=== PATIENT | female | born 1950 | race Caucasian/White ===

== ENCOUNTER 2018-02-27 17:14 | Emergency (ER) | payer OTHER ==
--- OUTSIDE RECORDS SUMMARY | 2018-02-27 17:17 | XMS REPORT | Clinical Summary ---
:1950 Author Organization [facility] Address [address] [place] [address] Care Team Providers Name Role Phone Jarad Ruano MD Primary Care Provider Allergies Active Allergy Reactions Severity Noted Date Comments Iodine And Iodide Containing Products 01/12/2016 Other 01/12/2016 "Seafood" "Cats" Current Medications Prescription Sig. Disp. Refills Start End Status Date Date fenofibrate (TRICOR) Take 145 mg by 0 01/25/20 Active 145 MG tablet mouth once 16 daily. levothyroxine Take 25 mcg by 3 01/21/20 Active (SYNTHROID, mouth once 16 LEVOTHROID) 25 MCG daily. tablet aspirin (ECOTRIN) 81 Take 81 mg by Active MG enteric coated mouth daily. tablet lisinopril-hydrochloro Take 1 tablet by Active thiazide mouth daily. (PRINZIDE,ZESTORETIC) 20-12.5 mg per tablet simvastatin (ZOCOR) 40 Take 40 mg by Active MG tablet mouth daily. lisinopril-hydrochloro Take 1 tablet by 0 01/25/20 Discontinued thiazide mouth once 16 018 (PRINZIDE,ZESTORETIC) daily. 10-12.5 mg per tablet simvastatin (ZOCOR) 20 Take 20 mg by 0 01/25/20 Discontinued MG tablet mouth once 16 018 daily. traMADol (ULTRAM) 50 TAKE 1 TABLET BY 0 12/02/19 Discontinued mg tablet MOUTH EVERY 6-8 16 018 HOURS NEEDED FOR PAIN. HYDROcodone-acetaminop Take 1 tablet by 80 tablet 0 04/09/20 hen (NORCO) 5-325 mg mouth every 4 17 017 per tabletIndications: (four) hours as Degenerative needed for scoliosis, Radicular moderate pain pain for up to 20 days. Max Daily Amount: 6 tablets metaxalone (SKELAXIN) Take 1 tablet 30 tablet 1 04/09/20 Discontinued 800 MG (800 mg total) 17 017 tabletIndications: by mouth nightly Degenerative as needed for scoliosis, Radicular muscle spasms pain for up to 30 days. cyclobenzaprine Take 1 tablet 30 tablet 1 04/09/20 Discontinued (FLEXERIL) 10 mg (10 mg total) by 17 017 tabletIndications: mouth nightly as Degenerative needed for scoliosis, Radicular muscle spasms pain for up to 30 days. cyclobenzaprine TAKE 1 TABLET BY 30 tablet 1 07/13/19 Discontinued (FLEXERIL) 10 mg MOUTH AT NIGHT 18 018 tabletIndications: NEEDED FOR Degenerative MUSCLE SPASMS scoliosis, Radicular pain HYDROcodone-acetaminop Take 1 tablet by 60 tablet 07/16/19 Discontinued hen (NORCO) 10-325 mg mouth every 4 18 018 per tabletIndications: (four) hours as Spondylolisthesis, needed for lumbar region moderate pain for up to 20 days. Max Daily Amount: 6 tablets docusate sodium Take 1 capsule 30 capsule 0 08/04/19 (COLACE) 100 MG (100 mg total) 18 018 capsule by mouth 2 (two) times a day as needed for constipation (for stool softener) for up to 30 days. HYDROcodone-acetaminop Take 1 tablet by 08/04/19 hen (NORCO) 10-325 mg mouth every 4 18 018 per tablet (four) hours as needed for mild pain for up to 30 days. Max Daily Amount: 6 tablets methylPREDNISolone follow package 21 tablet 0 08/13/19 (MEDROL, WES,) 4 mg directions 18 018 tabletIndications: S/P lumbar fusion HYDROcodone-acetaminop Take 1 tablet by 120 tablet 08/27/19 hen (NORCO) 10-325 mg mouth every 4 18 018 per tablet (four) hours as needed for moderate pain for up to 30 days. Max Daily Amount: 6 tablets HYDROcodone-acetaminop Earliest Fill Date: 10/02/17. 1 tablet by mouth every 6 hours, prn pain 90 tablet 0 10/03/19 04/08/ hen (NORCO) 10-325 mg Max daily dose 4 tablets 18 018 per tablet HYDROcodone-acetaminop Take 1 tablet by 90 tablet 0 10/03/19 04/16/2 hen (NORCO) 10-325 mg mouth every 4 18 018 per tabletIndications: (four) hours as S/P lumbar fusion needed for moderate pain for up to 20 days. Max Daily Amount: 6 tablets Active Problems Problem Noted Date Spondylolisthesis, lumbar region 08/01/2017 Lumbar stenosis 08/01/2017 Left knee pain 12/01/2015 Overview: Lateral, medial, and anterior and posterior; S/P Meniscal repair 03/2015 Plan: Proceed with surgery. Discussed the risks, benefits, and possible complications. Encounters Date Type Specialty Care Team Description 01/01/2018 Office Visit Orthopedic Surgery Alejandro Correa S/P lumbar fusion Teto Donovan (Primary Dx) 10/02/2017 Office Visit Orthopedic Surgery Alejandro Correa S/P lumbar fusion Teto Donovan (Primary Dx) 08/28/2017 Telephone Orthopedic Surgery Susana Brown 08/27/2017 Hospital Encounter Radiology Alejandro Correa S/P lumbar fusion Teto Donovan MD 08/27/2017 Office Visit Orthopedic Surgery Alejandro Correa S/P lumbar fusion Teto Donovan, (Primary Dx) 08/14/2017 Telephone Orthopedic Surgery Susana Brown 08/13/2017 Office Visit Orthopedic Surgery Alejandro Correa S/P lumbar fusion Teto Donovan (Primary Dx) 08/03/2017 Procedure Pass General Surgery 08/01/2017 - Hospital Encounter General Internal Alejandro Correa Spondylolisthesis, lumbar region; 08/04/2017 Medicine Teto Donovan, Degenerative scoliosis; Osteopenia determined by x-ray 08/01/2017 Procedure Pass General Surgery 08/01/2017 Surgery General Surgery Alejandro Correa, LUMBAR ANTERIOR Teto Donovan, DECOMPRESSION L3-4, L4-5, LUMBAR ANTERIOR FUSION WITH INSTRUMENTATION L3-4, L4-5,LUMBAR POSTERIOR L3-4,L4-5 DECOMPRESSION AND FUSION WITH INSTRUMENTATION AND RIGHT SIDED L3-4 LAMINOTOMY FORAMINOTOMY, LEFT SIDED L4-5 LAMINOTOMY FORAMINOTOMY , WITH NEURO MONITORING, ALLOGRAFT, BILATERAL ILIAC CREST BONE GRAFT, 07/26/2017 Anesthesia Event General Surgery David WalliselisseALTAGRACIA 07/16/2017 Hospital Encounter Radiology Alejandro Correa, Preop testing Teto Donovan MD 07/16/2017 Pre-Admit Testing Pre-Admission Alejandro Correa Preop testing ( Primary Appointment Testing Courtney Lugo) 07/16/2017 Office Visit Orthopedic Surgery Alejandro Correa, Spondylolisthesis, lumbar region (Primary Dx); Teto Donovan, Degenerative scoliosis in adult patient; Chronic midline low back pain without sciatica 06/19/2017 Refill Orthopedic Surgery Alejandro Correa, Degenerative scoliosis; Teto Donovan, Radicular pain 06/08/2017 Telephone Orthopedic Surgery Susana Brown 04/23/2017 Office Visit Orthopedic Surgery Alejandro Correa, Spondylolisthesis, lumbar region (Primary Dx); Teto Donovan Degenerative scoliosis; Osteopenia determined by x-ray 04/17/2017 Hospital Encounter Radiology Alejandro Correa, Degenerative scoliosis ; Teto Donovan Radicular pain 04/12/2017 Hospital Encounter Radiology Alejandro Correa, Degenerative scoliosis ; Teto Donovan Radicular pain 04/11/2017 Procedure Pass Radiology 04/11/2017 Telephone Orthopedic Surgery Susana Brown 04/11/2017 Telephone Orthopedic Surgery Kevin Susana 04/11/2017 Orders Only Orthopedic Surgery Alejandro Correa Degenerative scoliosis (Primary Dx); Teto Donovan Radicular pain 04/09/2017 Office Visit Orthopedic Surgery Alejandro Correa, Degenerative scoliosis (Primary Dx); Teto Donovan Radicular pain 04/02/2017 Office Visit Orthopedic Surgery Camilo Montoya right side MD Zulema (Primary Dx) after 02/26/2017 Family History Medical History Relation Name Comments Cancer Father prostate Heart disease Mother Hypertension Mother Relation Name Status Comments Father Mother Social History Tobacco Use Types Packs/Day Years Used Date Current Every Day Smoker Cigarettes 0.5 30 Smokeless Tobacco: Never Used Alcohol Use Drinks/Week oz/Week Comments No Sex Assigned at Date Recorded Not on file Last Filed Vital Signs Vital Sign Reading Time Taken Blood Pressure 127/58 08/04/2017 7:50 AM [employer] Pulse 86 08/04/2017 7:50 AM [employer] Temperature 36.8 C (98.2 F) 08/04/2017 7:50 AM [employer] Respiratory Rate 18 08/04/2017 7:50 AM [employer] Oxygen Saturation 95% 08/04/2017 7:50 AM [employer] Inhaled Oxygen Concentration - - Weight 93 kg (205 lb) 01/01/2018 1:02 PM CDT Height 167.6 cm (5' 6") 01/01/2018 1:02 PM CDT Body Mass Index 33.09 01/01/2018 1:02 PM CDT Plan of Treatment Date Type Specialty Care Team Description 07/04/2018 Office Visit [place] [address] [place] [address] Health Maintenance Due Date Last Done Comments BREAST CANCER SCREENING 1999 COLON CANCER SCREENING 1999 SHINGRIX VACCINE (#1) 1999 ZOSTER VACCINE 2009 PNEUMOCOCCAL POLYSACCHARIDE VACCINE AGE 65 AND OVER 2014 PNEUMOCOCCAL-13 2014 INFLUENZA VACCINE 02/06/2018 Implants Implanted Type Area Accounting File Clerk Device Expiration Model / Identifier Date Serial / Lot Hemostat Absrbl Biosurgery 4x4in Ltxf Surgicel - [id number] Cardiovasc Anterior: ETHICON US-EH 01/06/2020 1963 / Implanted: Qty: 1 on 08/01/2017 by Teto Salas MD ular Spine / Implants Lumbar [id number] [facility] Allograft Leader [facility] 15cc 0.1-4mm - [id number] Human Anterior: MUSCULOSKELETAL 10/26/2019 [id number] / Implanted: Qty: 1 on 08/01/2017 by Teto Salas MD Tissue Spine TRANSPLANT / Implants Lumbar [facility] [id number] Concelltrate 100 10.0cc - [id number] Human N/A: N/A 12/29/2021 [id number] / Implanted: Qty: 1 on 08/01/2017 by Teto Salas MD Tissue / Implants Concelltrate 100 10.0cc - [id number] Human N/A: N/A 12/29/2021 [id number] / Implanted: Qty: 1 on 08/01/2017 by Teto Salas MD Tissue / Implants Chip Canc Allograft Leader [facility] 15cc 0.1-4mm - [id number] Human Posterior: MUSCULOSKELETAL 12/30/2019 [id number] / Implanted: Qty: 1 on 08/01/2017 by Teto Salas MD Tissue Spine TRANSPLANT / Implants Lumbar [employer] [id number] Chip Canc Allograft Leader [facility] 30cc 0.1-4mm - [id number] Human Posterior: MUSCULOSKELETAL 05/04/2020 [id number] / Implanted: Qty: 1 on 08/01/2017 by Teto Salas MD Tissue Spine TRANSPLANT / Implants Lumbar [facility] [id number] Concelltrate 100 10.0cc - [id number] Human N/A: N/A 12/29/2021 [id number] / Implanted: Qty: 1 on 08/01/2017 by Teto Salas MD Tissue / Implants Concelltrate 100 10.0cc - [id number] Human N/A: N/A 12/29/2021 [id number] / Implanted: Qty: 1 on 08/01/2017 by Teto Salas MD Tissue / Implants Concelltrate 100 10.0cc - [id number] Human N/A: N/A 12/29/2021 [id number] / Implanted: Qty: 1 on 08/01/2017 by Teto Salas MD Tissue / Implants Melecio-A Median Alif Cage 10, 30x39 H 12mm - [id number] Anterior: LDR SPINE 07/09/2020 [id number] / Implanted: Qty: 1 on 08/01/2017 by Teto Salas MD IMPLANT Spine / DEVICES Lumbar [id number] Melecio-A Median Alif Cage 10, 30x39 H 12mm - [id number] Anterior: LDR SPINE 09/06/2018 [id number] / Implanted: Qty: 1 on 08/01/2017 by AllenTeto Parsons MD IMPLANT Spine / DEVICES Lumbar [id number] Melecio-A Plate +0.5mm Thick Medium - [id number] Anterior: LDR SPINE 04/08 [id number] / Implanted: Qty: 1 on 08/01/2017 by Teto Salas MD IMPLANT Spine / DEVICES Lumbar [id number] Melecio-A Plate +0.5mm Thick Medium - [id number] Anterior: LDR SPINE 08/09 [id number] / Implanted: Qty: 1 on 08/01/2017 by Teto Salas MD IMPLANT Spine / DEVICES Lumbar [id number] Arrow Two-Lumen Central Venous Catheterization Kit With Blue Flextip, Arrowgard Blue Plus Catheter, Sharps Safety Features, And Maximal Barrier Precautions Kit, Right: ARROW 10/06/2018 [id number] / Implanted: Qty: 1 on 08/01/2017 by Nathan Vee MD Venous [employer] A DIV OF [id number] TELEFLEX Henri Lmbr Thorc Nicole 3 - [id number] Spinal Posterior: JOANN SPINE [id number] / Implanted: Qty: 6 on 08/01/2017 by Teto Salas MD Implants Spine / Lumbar VENDOR LOT NA Screw Spinal Plyaxl 6.5x40mm Nicole Iii - [id number] Spinal Posterior: JOANN SPINE [id number] / Implanted: Qty: 2 on 08/01/2017 by Teto Salas MD Implants Spine / Lumbar VENDOR LOT NA Screw Plyaxl Lmbr Thor 5.5x40mm Ns Nicole 3 - [id number] Spinal Posterior: JOANN SPINE [id number] / Implanted: Qty: 3 on 08/01/2017 by Teto Salas MD Implants Spine / Lumbar VENDOR LOT NA Screw Spinal Plyaxl 5.5x35mm Nicole Iii - [id number] Spinal Posterior: JOANN SPINE [id number] / Implanted: Qty: 1 on 08/01/2017 by Teto Salas MD Implants Spine / Lumbar VENDOR LOT NA Kong Spinal Rads 6x70mm Nicole Iii - [id number] Spinal Posterior: JOANN SPINE [id number] / Implanted: Qty: 2 on 08/01/2017 by Teto Salas MD Implants Spine / Lumbar VENDOR LOT NA Procedures Procedure Name Priority Date/Time Associated Comments Diagnosis XR LUMBAR SPINE 2 OR Routine 01/01/2018 1:12 S/P lumbar fusion Results for this 3 VW PM CDT procedure are in the results section. XR LUMBAR SPINE 2 OR Routine 10/02/2017 1:30 S/P lumbar fusion Results for this 3 VW PM CDT procedure are in the results section. CT LUMBAR SPINE WO STAT 08/27/2017 1:58 S/P lumbar fusion Results for this CONTRAST PM [employer] procedure are in the results section. XR LUMBAR SPINE 2 OR Routine 08/27/2017 11:26 S/P lumbar fusion Results for this 3 VW AM [employer] procedure are in the results section. XR LUMBAR SPINE 2 OR Routine 08/13/2017 11:55 S/P lumbar fusion Results for this 3 VW AM [employer] procedure are in the results section. ESTIMATED GFR Routine 08/03/2017 5:07 Results for this AM [employer] procedure are in the results section. HC COMPLETE BLD COUNT Routine 08/03/2017 5:07 Results for this W/AUTO DIFF AM [employer] procedure are in the results section. MAGNESIUM LEVEL Routine 08/03/2017 5:07 Results for this AM [employer] procedure are in the results section. BASIC METABOLIC PANEL Routine 08/03/2017 5:07 Results for this AM [employer] procedure are in the results section. ESTIMATED GFR Routine 08/02/2017 5:57 Results for this AM [employer] procedure are in the results section. BASIC METABOLIC PANEL Routine 08/02/2017 5:57 Results for this AM [employer] procedure are in the results section. XR CHEST 1 VW STAT 08/01/2017 3:40 Results for this PORTABLE PM [employer] procedure are in the results section. OR FL > 1 HOUR Routine 08/01/2017 2:00 Results for this PM [employer] procedure are in the results section. MI AN ELECTIVE Routine 08/01/2017 8:05 ENDOTRACHEAL AIRWAY AM [employer] Procedure Note - Enma Byrd CRNA - 08/01/2017 8:04 AM [employer] Airway Date/Time: 08/01/2017 8:04 AM Performed by: ENMA BYRD Authorized by: LISBETH RUCKER Location: OR Urgency: Elective Difficult Airway: No Anesthesiologist: LISBETH RUCKER Resident/CHEMIST STEROIDS/AA: ENMA BYRD Preoxygenated with 100% O2: Yes C-spine Precautions Maintained Throughout: Yes Mask Ventilation: Easy mask Final Airway Type: Endotracheal airway Final Endotracheal Airway: ETT Cuffed: Yes Technique Used: Direct laryngoscopy Devices/Methods Used in Placement: Intubating stylet Insertion Site: Oral Blade Type: Lee Laryngoscope Blade/Videolaryngoscope Blade Size: 2 ETT Size (mm): 7.0 Cuff at minimum occlusion pressure: Yes Measured from: Lips ETT to Lips (cm): 22 Placement Verified by: CO2 detection, direct visualization and equal breath sounds Laryngoscopic view: Grade I - full view of glottis Rapid Sequence Induction (RSI): No Modified RSI: No Number of Attempts at Approach: 1 URINALYSIS SCREEN Timed 08/01/2017 7:50 Spondylolisthesis, lumbar Results for AND MICROSCOPY, WITH AM [employer] region this procedure REFLEX TO CULTURE Degenerative scoliosis are in the Osteopenia determined by results x-ray section. URINE CULTURE Timed 08/01/2017 7:50 Results for AM [employer] this procedure are in the results section. POC GLUCOSE Routine 08/01/2017 6:50 Results for AM [employer] this procedure are in the results section. XR CHEST 2 VW Routine 07/16/2017 3:03 Preop testing Results for PM [employer] this procedure are in the results section. ECG 12-LEAD Routine 07/16/2017 2:21 Preop testing Results for PM [employer] this procedure are in the results section. ESTIMATED GFR Routine 07/16/2017 2:19 Results for PM [employer] this procedure are in the results section. TYPE AND SCREEN Routine 07/16/2017 2:19 Preop testing Results for PM [employer] this procedure are in the results section. PROTHROMBIN TIME Routine 07/16/2017 2:19 Preop testing Results for WITH INR PM [employer] this procedure are in the results section. PARTIAL Routine 07/16/2017 2:19 Preop testing Results for THROMBOPLASTIN TIME PM [employer] this procedure (PTT) are in the results section. COMPREHENSIVE Routine 07/16/2017 2:19 Preop testing Results for METABOLIC PANEL PM [employer] this procedure are in the results section. HC COMPLETE BLD Routine 07/16/2017 2:19 Preop testing Results for COUNT W/AUTO DIFF PM [employer] this procedure are in the results section. MRI LUMBAR SPINE WO Routine 04/17/2017 1:44 Degenerative scoliosis Results for CONTRAST PM CDT Radicular pain this procedure are in the results section. BONE DENSITY Routine 04/12/2017 1:09 Degenerative scoliosis Results for PM CDT Radicular pain this procedure are in the results section. XR LUMBAR SPINE Routine 04/09/2017 1:36 Chronic right-sided low Results for COMPLETE 4+ VW PM CDT back pain without sciatica this procedure are in the results section. XR PELVIS 1 OR 2 VW Routine 04/02/2017 4:41 Pain of right hip joint Results for PM CDT this procedure are in the results section. after 02/26/2017 Results XR Lumbar Spine 2 Or 3 Vw (01/01/2018 1:12 PM)Only the most recent of4 resultswithin the time period is included. Narrative Performed At X-ray lumbar spine AP lateral view shows L3-4, L4-5 anterior interbody [facility] fusion posterior sure mentation spondylolisthesis lateral type reduced. Hardware in place. No loosening or cage subsidence. Performing Organization Address City/State/[facility] Phone Number [facility] [address] [place] [address] CT Lumbar Spine Wo Contrast (08/27/2017 1:58 PM) Narrative Performed At EXAMINATION:CT LUMBAR SPINE WO CONTRAST [facility] CLINICAL HISTORY:Z98.1 Arthrodesis status, LEFT SI JOINT PAIN COMPARISON:None. TECHNIQUE: Axial helical CT images throughout theLUMBAR spine were performedwithout contrast. Sagittal and coronal reformatted images were generated. CT scans are performed using radiation dose reduction techniques. Technical factors are evaluated and adjusted to ensure appropriate moderation of exposure. Automated dose management technology is applied to adjust radiation exposure while achieving a highly diagnostic quality image. FINDINGS: Sagittal and coronal image reconstructions demonstrate postoperative changes at L3-4 and L4-5 related to acute and posterior instrumentation and fusion. Posterior bone graft material overlies the posterior elements from L3 to L5. Axial images demonstrate following: Sacroiliac joint: There are bilateral sacroiliac joint degenerative changes with intra-articular vacuum cleft and minimal sclerosis on the iliac aspect of the articulation. L5-S1: There are facet joint degenerative changes on the left. L4-5: There are postoperative changes related to anterior and posterior instrumentation and fusion. The hardware positioning is good. L3-4: There are postoperative changes related to anterior and posterior instrumentation and fusion and small laminotomies. There is no significant spinal canal or foraminal stenosis. L2-3: There is minimal annular bulging. L1-2: There is no significant disc bulge or stenosis. T12-L1: There is no significant disc bulge or stenosis. T11-12: There is no significant disc bulge or stenosis. IMPRESSION: Postoperative changes at L3-4 and L4-5 related to anterior and posterior instrumentation and fusion without spinal canal or foraminal stenosis. Posterior bone graft overlies the posterior elements from L3 to L5 bilaterally. Bilateral sacroiliac joint degenerative changes and intra-articular vacuum cleft. Sacroiliac joint dysfunction or laxity is suspected and clinical correlation is recommended. No significant spinal canal stenosis or compression fracture. [facility]-[id number] Procedure Note Interface, Radiology Results - 08/27/2017 2:09 PM [employer] EXAMINATION: CT LUMBAR SPINE WO CONTRAST CLINICAL HISTORY: Z98.1 Arthrodesis status, LEFT SI JOINT PAIN COMPARISON: None. TECHNIQUE: Axial helical CT images throughout the LUMBAR spine were performed without contrast. Sagittal and coronal reformatted images were generated. CT scans are performed using radiation dose reduction techniques. Technical factors are evaluated and adjusted to ensure appropriate moderation of exposure. Automated dose management technology is applied to adjust radiation exposure while achieving a highly diagnostic quality image. FINDINGS: Sagittal and coronal image reconstructions demonstrate postoperative changes at L3-4 and L4-5 related to acute and posterior instrumentation and fusion. Posterior bone graft material overlies the posterior elements from L3 to L5. Axial images demonstrate following: Sacroiliac joint: There are bilateral sacroiliac joint degenerative changes with intra-articular vacuum cleft and minimal sclerosis on the iliac aspect of the articulation. L5-S1: There are facet joint degenerative changes on the left. L4-5: There are postoperative changes related to anterior and posterior instrumentation and fusion. The hardware positioning is good. L3-4: There are postoperative changes related to anterior and posterior instrumentation and fusion and small laminotomies. There is no significant spinal canal or foraminal stenosis. L2-3: There is minimal annular bulging. L1-2: There is no significant disc bulge or stenosis. T12-L1: There is no significant disc bulge or stenosis. T11-12: There is no significant disc bulge or stenosis. IMPRESSION: Postoperative changes at L3-4 and L4-5 related to anterior and posterior instrumentation and fusion without spinal canal or foraminal stenosis. Posterior bone graft overlies the posterior elements from L3 to L5 bilaterally. Bilateral sacroiliac joint degenerative changes and intra-articular vacuum cleft. Sacroiliac joint dysfunction or laxity is suspected and clinical correlation is recommended. No significant spinal canal stenosis or compression fracture. [facility]-[id number] Performing Organization Address City/[facility]/Zipcode Phone Number [facility] [address] [place] [address] Estimated GFR (08/03/2017 5:07 AM)Only the most recent of3 resultswithin the time period is included. GFR Non Af Amer 83 mL/min/1.73 m2 [facility] DEPARTMENT OF PATHOLOGY AND GENOMIC MEDICINE GFR Af Amer >90 mL/min/1.73 m2 [facility] DEPARTMENT OF Comment: PATHOLOGY AND GENOMIC Chronic kidney disease: <60 mL/min/1.73m2 MEDICINE Kidney failure: <15 mL/min/1.73m2 The estimated GFR is calculated from the IDMS-traceable Modification of Diet in Renal Disease Equation. The accuracy of the calculation is poor when the creatinine is normal. Calculated values >90 mL/min/1.73m2 are not reported. This equation has not been validated in children (<18 years), women, the elderly (>70 years), or ethnic groups other than Caucasians and Americans. Specimen Plasma specimen Performing Organization Address City/State/Zipcode Phone Number [facility] DEPARTMENT OF PATHOLOGY [address] [place] [address] AND [employer] MEDICINE CBC with platelet and differential (08/03/2017 5:07 AM)Only the most recent of2 resultswithin the time period is included. WBC 12.2 (H) 4.5 - 11.0 k/uL [facility] DEPARTMENT OF PATHOLOGY AND GENOMIC MEDICINE RBC 2.86 (L) 4.20 - 5.50 m/uL [facility] DEPARTMENT OF PATHOLOGY AND GENOMIC MEDICINE HGB 9.3 (L) 12.0 - 16.0 g/dL [facility] DEPARTMENT OF PATHOLOGY AND GENOMIC MEDICINE HCT 28.0 (L) 37.0 - 47.0 % [facility] DEPARTMENT OF PATHOLOGY AND GENOMIC MEDICINE MCV 97.9 82.0 - 100.0 fL [facility] DEPARTMENT OF PATHOLOGY AND GENOMIC MEDICINE MCH 32.5 27.0 - 34.0 pg [facility] DEPARTMENT OF PATHOLOGY AND GENOMIC MEDICINE MCHC 33.2 31.0 - 37.0 g/dL [facility] DEPARTMENT OF PATHOLOGY AND GENOMIC MEDICINE RDW - SD 47.9 37.0 - 55.0 fL [facility] DEPARTMENT OF PATHOLOGY AND GENOMIC MEDICINE MPV 11.0 6.9 - 11.0 fL [facility] DEPARTMENT OF PATHOLOGY AND GENOMIC MEDICINE Platelet count 220 150 - 400 K/uL [facility] DEPARTMENT OF PATHOLOGY AND GENOMIC MEDICINE Nucleated RBC 0.00 /100 WBC [facility] DEPARTMENT OF PATHOLOGY AND GENOMIC MEDICINE Neutrophils 64.1 39.0 - 69.0 % [facility] DEPARTMENT OF PATHOLOGY AND GENOMIC MEDICINE Lymphocytes 28.3 25.0 - 45.0 % [facility] DEPARTMENT OF PATHOLOGY AND GENOMIC MEDICINE Monocytes 6.6 0.0 - 10.0 % [facility] DEPARTMENT OF PATHOLOGY AND GENOMIC MEDICINE Eosinophils 0.2 0.0 - 5.0 % [facility] DEPARTMENT OF PATHOLOGY AND GENOMIC MEDICINE Basophils 0.3 0.0 - 1.0 % [facility] DEPARTMENT OF PATHOLOGY AND GENOMIC MEDICINE Immature granulocytes 0.5 0.0 - 1.0 % [facility] DEPARTMENT OF PATHOLOGY AND GENOMIC MEDICINE Specimen Blood Performing Organization Address City/[facility]/Zipcode Phone Number [facility] [address] AND [facility] Magnesium level (08/03/2017 5:07 AM) Magnesium 1.8 1.6 - 2.4 mg/dL [facility] DEPARTMENT OF PATHOLOGY AND GENOMIC MEDICINE Specimen Plasma specimen Performing Organization Address [facility]/Zipcode Phone Number [facility] [place] [address] AND [facility] Basic metabolic panel (08/03/2017 5:07 AM)Only the most recent of2 resultswithin the time period is included. Sodium 143 135 - 148 mEq/L [facility] DEPARTMENT OF PATHOLOGY AND GENOMIC MEDICINE Potassium 4.0 3.5 - 5.0 mEq/L [facility] DEPARTMENT OF PATHOLOGY AND GENOMIC MEDICINE Chloride 105 98 - 112 mEq/L [facility] DEPARTMENT OF PATHOLOGY AND GENOMIC MEDICINE CO2 31 24 - 31 mEq/L [facility] DEPARTMENT OF PATHOLOGY AND GENOMIC MEDICINE Anion gap 7 7 - 15 mEq/L [facility] DEPARTMENT OF Comment: PATHOLOGY AND GENOMIC Starting from October , anion gap calculation MEDICINE no longer incorporates potassium. Please note the change. BUN 16 8 - 23 mg/dL [facility] DEPARTMENT OF PATHOLOGY AND GENOMIC MEDICINE Creatinine 0.7 0.5 - 0.9 mg/dL [facility] DEPARTMENT OF PATHOLOGY AND GENOMIC MEDICINE Glucose 92 65 - 99 mg/dL [facility] DEPARTMENT OF PATHOLOGY AND GENOMIC MEDICINE Calcium 8.9 8.8 - 10.2 mg/dL [facility] DEPARTMENT OF PATHOLOGY AND GENOMIC MEDICINE Specimen Plasma specimen Performing Organization Address City/[facility]/Zipcode Phone Number [facility] DEPARTMENT OF PATHOLOGY [address] [place] [address] AND GENOMIC MEDICINE XR Chest 1 Vw Portable (08/01/2017 3:40 PM) Narrative Performed At EXAMINATION:XR CHEST 1 VW PORTABLE [facility] CLINICAL HISTORY:UVC Line Placement COMPARISON:07/16/2017 IMPRESSION: Right-sided central line tip is at the SVC level. No pneumothorax. Interval development of perihilar soft tissue opacities and patchy infiltrates. Low lung volumes. [facility]-[id number] Procedure Note Interface, Radiology Results Incoming - 08/01/2017 3:46 PM [employer] EXAMINATION: XR CHEST 1 VW PORTABLE CLINICAL HISTORY: UVC Line Placement COMPARISON: 07/16/2017 IMPRESSION: Right-sided central line tip is at the SVC level. No pneumothorax. Interval development of perihilar soft tissue opacities and patchy infiltrates. Low lung volumes. [facility]-[id number] Performing Organization Address [facility] Phone Number [facility] [address] [place] [address] [place] > I Hour (08/01/2017 2:00 PM) Narrative Performed At EXAMINATION:OR [place] 1 HOUR [facility] CLINICAL HISTORY: IMPRESSION: Fluoroscopy was provided. No radiologist present.Please see procedure report for discussion of procedure, findings and fluoroscopic time. [facility]-[id number] Procedure Note Interface, Radiology Results Incoming - 08/01/2017 2:49 PM [employer] EXAMINATION: [place] 1 HOUR CLINICAL HISTORY: IMPRESSION: Fluoroscopy was provided. No radiologist present. Please see procedure report for discussion of procedure, findings and fluoroscopic time. [facility]-[id number] Performing Organization Address [facility]/Zipcode Phone Number [facility] [address] [place] [address] Urinalysis screen and microscopy, with reflex to culture (08/01/2017 7:50 AM) Specimen site Catheterized [facility] DEPARTMENT OF PATHOLOGY AND GENOMIC MEDICINE Color, UA Straw [facility] DEPARTMENT OF PATHOLOGY AND GENOMIC MEDICINE Appearance, UA Clear [facility] DEPARTMENT OF PATHOLOGY AND GENOMIC MEDICINE Specific gravity, UA 1.010 1.001 - 1.030 [facility] DEPARTMENT OF PATHOLOGY AND GENOMIC MEDICINE pH, UA 6.0 5.0 - 9.0 [facility] DEPARTMENT OF PATHOLOGY AND GENOMIC MEDICINE Protein, UA Negative Negative [facility] DEPARTMENT OF PATHOLOGY AND GENOMIC MEDICINE Glucose, UA Negative Negative [facility] DEPARTMENT OF PATHOLOGY AND GENOMIC MEDICINE Ketones, UA Negative Negative [facility] DEPARTMENT OF PATHOLOGY AND GENOMIC MEDICINE Bilirubin, UA Negative Negative [facility] DEPARTMENT OF PATHOLOGY AND GENOMIC MEDICINE Blood, UA Moderate (A) Negative [facility] DEPARTMENT OF PATHOLOGY AND GENOMIC MEDICINE Nitrite, UA Negative Negative [facility] DEPARTMENT OF PATHOLOGY AND GENOMIC MEDICINE Urobilinogen, UA <2.0 <2.0 E.U./dL [facility] DEPARTMENT OF PATHOLOGY AND GENOMIC MEDICINE Leukocyte esterase, UA Negative Negative [facility] DEPARTMENT OF PATHOLOGY AND GENOMIC MEDICINE Epithelial cells, UA 1 /HPF [facility] DEPARTMENT OF PATHOLOGY AND GENOMIC MEDICINE WBC, UA <1 0 - 4 /HPF [facility] DEPARTMENT OF PATHOLOGY AND GENOMIC MEDICINE RBC, UA 3 (H) 0 - 2 /HPF [facility] DEPARTMENT OF PATHOLOGY AND GENOMIC MEDICINE Bacteria, UA Few None seen [facility] DEPARTMENT OF PATHOLOGY AND GENOMIC MEDICINE Yeast, UA None seen [facility] DEPARTMENT OF PATHOLOGY AND GENOMIC MEDICINE Yeast with pseudohyphae, UA None seen [facility] DEPARTMENT OF PATHOLOGY AND GENOMIC MEDICINE Specimen Urine - Urine, catheter Performing Organization Address City/[facility]/Zipcode Phone Number [facility] DEPARTMENT OF PATHOLOGY [address] [place] [address] AND [employer] Urine culture (08/01/2017 7:50 AM) Urine culture SEE COMMENTComment: Bacteriuria [facility] DEPARTMENT OF PATHOLOGY screen negative. AND [employer] MEDICINE Performing Organization Address City/[facility]/Zipcode Phone Number [facility] DEPARTMENT OF PATHOLOGY [address] [place] [address] AND [employer] [facility] POC glucose (08/01/2017 6:50 AM) POC glucose 88 65 - 99 mg/dL [facility] DEPARTMENT OF PATHOLOGY AND Comment: [employer] Meter ID: [id number] Classroom Assistant: Jourdan Nixon Performing Organization Address City/[facility]/Zipcode Phone Number [facility] DEPARTMENT OF PATHOLOGY [address] [place] [address] AND GENOMIC MEDICINE XR Chest 2 Vw (07/16/2017 3:03 PM) Narrative Performed At EXAMINATION:XR CHEST 2 VW [facility] CLINICAL HISTORY:Z01.818 Encounter for other preprocedural examination, PREOP COMPARISON:None. IMPRESSION: 1.The heart size is normal. The aorta is atherosclerotic. 2.There is no evidence of pulmonary edema. There are no focal consolidations or effusions. 3.Regional skeletal structures are slightly osteopenic. Changes related rotator cuff repair are seen in the right shoulder. Procedure Note Interface, Radiology Results Incoming - 07/16/2017 3:07 PM [employer] EXAMINATION: XR CHEST 2 VW CLINICAL HISTORY: Z01.818 Encounter for other preprocedural examination, PREOP COMPARISON: None. IMPRESSION: 1. The heart size is normal. The aorta is atherosclerotic. 2. There is no evidence of pulmonary edema. There are no focal consolidations or effusions. 3. Regional skeletal structures are slightly osteopenic. Changes related rotator cuff repair are seen in the right shoulder. Performing Organization Address [facility] Phone Number [facility] [address] [place] [address] ECG 12 lead (07/16/2017 2:21 PM) Ventricular rate 83 [facility]USE Atrial rate 84 [facility] MI interval 158 [facility] QRSD interval 88 [facility] QT interval 372 [facility] QTC interval 437 [facility] P axis 1 63 [facility] QRS axis 1 46 [facility] T wave axis 69 [facility] EKG impression Normal sinus rhythm-Poor R wave progression [facility] MUSE -Normal ECG-No previous ECGs available- Performing Organization Address [facility] Centercode Phone Number [facility] BIOeCON [address] [place] [address] Partial thromboplastin time, activated (07/16/2017 2:19 PM) PTT 31.1 23.0 - 36.0 sec [facility] DEPARTMENT OF Comment: PATHOLOGY AND GENOMIC PTT therapeutic range for unfractionated heparin is MEDICINE 61.0-112.0 seconds which corresponds to Anti-Xa 0.3-0.7 U/ml. Specimen Blood Performing Organization Address [facility]/Zipcode Phone Number [facility] DEPARTMENT OF PATHOLOGY [address] [place] [address] AND [facility] Prothrombin time with INR (07/16/2017 2:19 PM) Prothrombin time 13.1 12.0 - 15.0 sec [facility] DEPARTMENT OF PATHOLOGY AND GENOMIC MEDICINE INR 1.0 [facility] DEPARTMENT OF Comment: PATHOLOGY AND GENOMIC The International Normalized Ratio (INR) is a therapeutic MEDICINE monitoring tool for patients who are stable on oral anticoagulant therapy. An INR of 2.0-3.0 is suggested for deep vein thrombosis/pulmonary embolism. Specimen Blood Performing Organization Address City/[facility]/Zipcode Phone Number [facility] DEPARTMENT OF PATHOLOGY [address] [place] [id number] AND [employer] MEDICINE Type and screen (07/16/2017 2:19 PM) ABO grouping O [facility] DEPARTMENT OF PATHOLOGY AND GENOMIC MEDICINE Rh type POS [facility] DEPARTMENT OF PATHOLOGY AND GENOMIC MEDICINE Antibody screen (gel) NEG [facility] DEPARTMENT OF PATHOLOGY AND GENOMIC MEDICINE Specimen Blood Performing Organization Address [facility] Centercode Phone Number [facility] DEPARTMENT OF PATHOLOGY [address] [place] [id number] AND [facility] Comprehensive metabolic panel (07/16/2017 2:19 PM) Sodium 143 135 - 148 mEq/L [facility] DEPARTMENT OF PATHOLOGY AND GENOMIC MEDICINE Potassium 4.6 3.5 - 5.0 mEq/L [facility] DEPARTMENT OF PATHOLOGY AND GENOMIC MEDICINE Chloride 101 98 - 112 mEq/L [facility] DEPARTMENT OF PATHOLOGY AND GENOMIC MEDICINE CO2 31 24 - 31 mEq/L [facility] DEPARTMENT OF PATHOLOGY AND GENOMIC MEDICINE Anion gap 11 7 - 15 mEq/L [facility] DEPARTMENT OF Comment: PATHOLOGY AND GENOMIC Starting from October , anion gap calculation MEDICINE no longer incorporates potassium. Please note the change. BUN 14 8 - 23 mg/dL [facility] DEPARTMENT OF PATHOLOGY AND GENOMIC MEDICINE Creatinine 0.8 0.5 - 0.9 mg/dL [facility] DEPARTMENT OF PATHOLOGY AND GENOMIC MEDICINE Glucose 94 65 - 99 mg/dL [facility] DEPARTMENT OF PATHOLOGY AND GENOMIC MEDICINE Calcium 10.4 (H) 8.8 - 10.2 mg/dL [facility] DEPARTMENT OF PATHOLOGY AND GENOMIC MEDICINE Protein 7.3 6.3 - 8.3 g/dL [facility] DEPARTMENT OF PATHOLOGY AND GENOMIC MEDICINE Albumin 4.5 3.5 - 5.0 g/dL [facility] DEPARTMENT OF PATHOLOGY AND GENOMIC MEDICINE A/G ratio 1.6 0.7 - 3.8 [facility] DEPARTMENT OF PATHOLOGY AND GENOMIC MEDICINE Alkaline phosphatase 41 35 - 104 U/L [facility] DEPARTMENT OF PATHOLOGY AND GENOMIC MEDICINE AST 29 10 - 35 U/L [facility] DEPARTMENT OF PATHOLOGY AND GENOMIC MEDICINE ALT 13 5 - 50 U/L [facility] DEPARTMENT OF PATHOLOGY AND GENOMIC MEDICINE Total bilirubin 0.3 0.2 - 1.2 mg/dL [facility] DEPARTMENT OF PATHOLOGY AND GENOMIC MEDICINE Specimen Plasma specimen Performing Organization Address City/State/Zipcode Phone Number [facility] DEPARTMENT OF PATHOLOGY [address] [facility] [place] [address] AND GENOMIC MEDICINE MRI Lumbar Spine Wo Contrast (04/17/2017 1:44 PM) Narrative Performed At EXAMINATION: MRI LUMBAR SPINE WO CONTRAST [facility] CLINICAL HISTORY: M41.9 Scoliosisunspecified, M54.10 Radiculopathysite unspecified, degenerative scoliosis and radicular pain COMPARISON:Lumbar spine x-rays from earlier today. TECHNIQUE: Multiplanar multisequence noncontrast enhanced examination was performed of the Lumbar spine. FINDINGS: The lumbar curvature is moderately convex towards the left. There are degenerative changes of the upper visualized sacroiliac joints. There is decreased T2 signal in the lumbar discs at L4-5, L3-4 and L2-3. L5-S1: There is mild posterior disc space narrowing. There is minimal bulge. There are facet hypertrophic changes more prominent on the left. There is no significant canal or foramen stenosis. L4-5: There is severe left disc space narrowing with surrounding endplate degenerative changes. There is minimal anterolisthesis with uncovering of the disc and bulge. There is left paracentral spondylo sis with protrusion indenting the subarachnoid space in the region of the L5 nerve roots. There are facet hypertrophic changes more prominent on the left indenting the posterolateral subarachnoid space greater in the region of the L5 nerve roots. There i s no significant central canal stenosis. There is moderate left and mild right foramen stenosis. There is left extraforaminal spondylosis with mass effect on the nerve. L3-4: There is severe right disc space narrowing with surrounding endplate degenerative change. There is moderate left lateral listhesis. There is dorsal spondylosis with bulge indenting the anterior subarachnoid space. There are posterior element hypertrophic changes indenting the posterior subarachnoid space, greater on the right. There is mild to moderate left and moderate to severe right foramen stenosis. There is outward displacement of the right nerve in the extraforaminal region. L2-3: There is greater right disc space narrowing and posterior disc space narrowing. There is mild bulge. There are facet hypertrophic changes.There is no significant canal or foramen stenosis. L1-2: There are mild degenerative changes. The distal cord ends at the T12-L1 level and is grossly unremarkable. There is mild nonspecific heterogeneous signal intensity throughout the marrow. The study was not performed for proper imaging of soft tissue structures in the abdomen and pelvis. IMPRESSION: Degenerative changes with mass effect on the left L5 nerve root in the ventrolateral subarachnoid space and possibly mass effect on the right L4 nerve root in the ventrolateral subarachnoid space. Foramen stenosis more prominent on the left at L4-5 and right at L3-4. Lumbar curvature moderately convex towards the left. Lateral listhesis most prominent at L3-4. [id number] Procedure Note Hm Interface, Radiology Results Incoming - 04/17/2017 3:40 PM CDT EXAMINATION: MRI LUMBAR SPINE WO CONTRAST CLINICAL HISTORY: M41.9 Scoliosis unspecified, M54.10 Radiculopathy site unspecified, degenerative scoliosis and radicular pain COMPARISON: Lumbar spine x-rays from earlier today. TECHNIQUE: Multiplanar multisequence noncontrast enhanced examination was performed of the Lumbar spine. FINDINGS: The lumbar curvature is moderately convex towards the left. There are degenerative changes of the upper visualized sacroiliac joints. There is decreased T2 signal in the lumbar discs at L4-5, L3-4 and L2-3. L5-S1: There is mild posterior disc space narrowing. There is minimal bulge. There are facet hypertrophic changes more prominent on the left. There is no significant canal or foramen stenosis. L4-5: There is severe left disc space narrowing with surrounding endplate degenerative changes. There is minimal anterolisthesis with uncovering of the disc and bulge. There is left paracentral spondylosis with protrusion indenting the subarachnoid space in the region of the L5 nerve roots. There are facet hypertrophic changes more prominent on the left indenting the posterolateral subarachnoid space greater in the region of the L5 nerve roots. There is no significant central canal stenosis. There is moderate left and mild right foramen stenosis. There is left extraforaminal spondylosis with mass effect on the nerve. L3-4: There is severe right disc space narrowing with surrounding endplate degenerative change. There is moderate left lateral listhesis. There is dorsal spondylosis with bulge indenting the anterior subarachnoid space. There are posterior element hypertrophic changes indenting the posterior subarachnoid space, greater on the right. There is mild to moderate left and moderate to severe right foramen stenosis. There is outward displacement of the right nerve in the extraforaminal region. L2-3: There is greater right disc space narrowing and posterior disc space narrowing. There is mild bulge. There are facet hypertrophic changes. There is no significant canal or foramen stenosis. L1-2: There are mild degenerative changes. The distal cord ends at the T12-L1 level and is grossly unremarkable. There is mild nonspecific heterogeneous signal intensity throughout the marrow. The study was not performed for proper imaging of soft tissue structures in the abdomen and pelvis. IMPRESSION: Degenerative changes with mass effect on the left L5 nerve root in the ventrolateral subarachnoid space and possibly mass effect on the right L4 nerve root in the ventrolateral subarachnoid space. Foramen stenosis more prominent on the left at L4-5 and right at L3-4. Lumbar curvature moderately convex towards the left. Lateral listhesis most prominent at L3-4. [facility]-[id number] Performing Organization Address City/State/Zipcode Phone Number [facility] [address] [place] [address] Bone Density (04/12/2017 1:09 PM) Narrative Performed At EXAMINATION:BONE DENSITY [facility] CLINICAL HISTORY:M41.9 Scoliosisunspecified, M54.10 Radiculopathysite unspecified, osteoporosis COMPARISON:None. The results of this study expressed as bone mineral density (BMD) were as follows: AP spine (L1-L4) BMD: 1.090 g/cm2 T-Score: -0.8 Z-Score: -0.1 Percent change: No prior exam. % Dual Femur (Total Mean): BMD: 0.855 g/cm2 T-Score: -1.2 Z-Score:-0.5 Percent change: No prior exam. % Left Forearm (Radius 33%): BMD: 0.682 g/cm2 T-Score: -2.2 Z-Score: -0.6 Percent change: No prior exam. % Femur FRAX: Risk factors: History of fracture (adult). Tobacco user (current smoker). 10 year probability of fracture: 1.Major osteoporotic: 15.1% 2.Hip: 3.1% 3.Based on femur right neck BMD Impression: 1.Osteopenia based on a T score value of -2.2 for the left forearm. Notes: *The world health organization (WHO) has classified the patient's T-score as follows: At or above (-1) as normal (-1) to (-2.5) as low (osteopenia) At or below (-2.5) as abnormally low (osteoporosis, increased fracture risk) For premenopausal women, men under the age 50 years, and children the WHO classification does not apply. In these individuals please assess bone mineral density with Z scores for each skeletal site examined. Z scores above -2.0: Within expected range for age. Z scores lower than -2.0:Low bone density for age. The TBS is derived from the texture of the DEXA image and has been shown to be related to bone microarchitecture and fracture risk. This data provides information independent of BMD value; is used as a complement to the data obtained from the DEXA analysis and the clinical examination. The TBS can assist the healthcare professional in assessment of fracture risk and in monitoring the effect of treatments on patient over time. [facility]-[id number] Procedure Note [facility], Radiology Results Incoming - 04/12/2017 2:17 PM CDT EXAMINATION: BONE DENSITY CLINICAL HISTORY: M41.9 Scoliosis unspecified, M54.10 Radiculopathy site unspecified, osteoporosis COMPARISON: None. The results of this study expressed as bone mineral density (BMD) were as follows: AP spine (L1-L4) BMD: 1.090 g/cm2 T-Score: -0.8 Z-Score: -0.1 Percent change: No prior exam. % Dual Femur (Total Mean): BMD: 0.855 g/cm2 T-Score: -1.2 Z-Score: -0.5 Percent change: No prior exam. % Left Forearm (Radius 33%): BMD: 0.682 g/cm2 T-Score: -2.2 Z-Score: -0.6 Percent change: No prior exam. % Femur FRAX: Risk factors: History of fracture (adult). Tobacco user (current smoker). 10 year probability of fracture: 1. Major osteoporotic: 15.1% 2. Hip: 3.1% 3. Based on femur right neck BMD Impression: 1. Osteopenia based on a T score value of -2.2 for the left forearm. Notes: *The world health organization (WHO) has classified the patient's T-score as follows: At or above (-1) as normal (-1) to (-2.5) as low (osteopenia) At or below (-2.5) as abnormally low (osteoporosis, increased fracture risk) For premenopausal women, men under the age 50 years, and children the WHO classification does not apply. In these individuals please assess bone mineral density with Z scores for each skeletal site examined. Z scores above -2.0: Within expected range for age. Z scores lower than -2.0: Low bone density for age. The TBS is derived from the texture of the DEXA image and has been shown to be related to bone microarchitecture and fracture risk. This data provides information independent of BMD value; is used as a complement to the data obtained from the DEXA analysis and the clinical examination. The TBS can assist the healthcare professional in assessment of fracture risk and in monitoring the effect of treatments on patient over time. [facility]-[id number] Performing Organization Address [facility] CenterDelenex Therapeutics Phone Number [employer] [address] [place] [address] XR Lumbar Spine Complete 4+ Vw (04/09/2017 1:36 PM) Narrative Performed At X-ray lumbar spine multiple views shows degenerative scoliosis with RADIANT lateral listhesis stemmed at the L3-4 with about 5 mm of listhesis and over 20 of curve. Under significant disc degeneration at the L2-3, L3-4, L4-5 and L5-S1. No fractures visualized. Lateral view flexion extension view shows no spondylolisthesis. Performing Organization Address [facility]/[employer] Phone Number [phone] [place] [address] XR Pelvis 1 Or 2 Vw (04/02/2017 4:41 PM) Narrative Performed At [facility] pelvis and lateral x-ray of the right hip is not of optimal quality but RADIANT does not show any obvious bony abnormalities. Performing Organization Address [facility]/[employer] Phone Number [address] [phone] [place] [address] after 02/26/2017 Insurance Payer Benefit Plan / Group Subscriber ID Type Phone Address MEDICARE MEDICARE PART A AND B xxxxxxxxxx Medicare [place], [place] SHANTAL MURGUIA PPO OPEN CHOICE xxxxxxxxx PPO Home: [address] [phone] [place], [place] [phone]
[2018-02-27] MEDS ORDERED: FENTANYL CITR 100 MCG/2 ML ONE (18:11)
[2018-02-27] MEDS ORDERED: NA CHLORIDE 0.9% 250 ML ONE (18:11)
[2018-02-27] MEDS ORDERED: NA CHLORIDE 0.9% 1,000 ML ONE (18:11)
--- NOTE | 2018-02-27 18:50 | RAD REPORT ---
EXAM DESCRIPTION: RAD - Shoulder Right 2 View - 02/27/2018 6:45 pm CLINICAL HISTORY: Right shoulder pain status post fall FINDINGS: Comminuted mildly to moderately displaced fracture involves the distal right clavicle with angulation present at the fracture site. Widening of the acromioclavicular joint likely indicates a tear of the ligament
[2018-02-27] MEDS ORDERED: HYDROMORPHONE HCL 0.5 MG/0.5 ML INJ ONE (19:26)
--- NOTE | 2018-02-27 19:56 | ER ---
Nurse's Notes [facility] Name: Susana Jaffe Age: 68 yrs Sex: Female : 1950 Arrival Date: 02/27/2018 Time: 17:15 Bed 2 Private MD: Jarad Ruano Diagnosis: Displaced fracture of lateral end of right clavicle Presentation: 02/27 17:32 Presenting complaint: Patient states: Tripped over furniture while vacuuming at 1600 aj today, reports right shoulder and arm pain. Deformity noted, reports tingling in arm. Care prior to arrival: None. Mechanism of Injury: Fall from standing position. Trauma event details: Injury occurred in the [facility], Injury occurred: at home. Injury occurred: February 27, 2018 Injury occurred at: 16:00. 17:32 Acuity: CINDY 3 aj 17:32 Method Of Arrival: Ambulatory aj 17:35 Transition of care: patient was not received from another setting of care. Onset of aj symptoms was February 27, 2018. Initial Sepsis Screen: Does the patient meet any 2 criteria? HR > 90 bpm. No. Patient's initial sepsis screen is negative. Does the patient have a suspected source of infection? No. Patient's initial sepsis screen is negative. 17:59 Risk Assessment: Do you want to hurt yourself or someone else? Patient reports no hj desire to harm self or others. Trauma Activation: Not Applicable Physician: ED Physician; Name: ; Notified At: ; Arrived At: Physician: General Surgeon; Name: ; Notified At: ; Arrived At: Physician: Radiology; Name: ; Notified At: ; Arrived At: Physician: Respiratory; Name: ; Notified At: ; Arrived At: Physician: Lab; Name: ; Notified At: ; Arrived At: Historical: - Allergies: 17:38 No Known Allergies; aj - Home Meds: 17:38 aspirin 81 mg Oral TbEC 1 tab once daily [Active]; levothyroxine 25 mcg tab 1 tab once aj daily [Active]; lisinopril-hydrochlorothiazide 20-12.5 mg oral tab 1 tab once daily [Active]; simvastatin 40 mg Oral tab 1 tab once daily [Active]; fenofibrate oral oral [Active]; - PMHx: 17:38 Hypertension; Hyperlipidemia; Hypothyroidism; Cancer, Breast; aj - PSHx: 17:38 Tonsillectomy; Hysterectomy; Thyroidectomy; Appendectomy; Cholecystectomy; colon aj resection; Right shoulder; Mastectomy Left; - Immunization history: Last tetanus immunization: - up to date. - Social history:: Smoking status: Patient uses tobacco products, smokes one-half pack cigarettes per day. - Ebola Screening: : Patient negative for fever greater than or equal to 101.5 degrees Fahrenheit, and additional compatible Ebola Virus Disease symptoms Patient denies exposure to infectious person Patient denies travel to an Ebola-affected area in the 21 days before illness onset No symptoms or risks identified at this time. Screenin:59 Abuse screen: Denies threats or abuse. Denies injuries from another. Nutritional hj screening: No deficits noted. Tuberculosis screening: No symptoms or risk factors identified. Fall Risk None identified. Primary Survey: 17:32 Breathing/Chest: Respiratory pattern: regular, Respiratory effort: spontaneous, aj unlabored, Breath sounds: clear, bilaterally. Chest inspection: symmetrical rise and fall of the chest. Circulation: Skin color: pink, Skin temperature: warm, dry. Disability Alert. 17:40 A: Airway: patent, No supplemental oxygen in use on arrival. Oral cavity: clear, gag hj reflex present, Trachea midline. Breathing/Chest: Respiratory pattern: regular, Respiratory effort: spontaneous, unlabored, Breath sounds: clear, Chest inspection: symmetrical rise and fall of the chest. Circulation: Cardiac rhythm: sinus rhythm Heart tones present. Pulses: palpable right radial artery and left radial artery. Skin color: pink, Skin temperature: warm, dry. Disability Alert. 17:45 Reassessment Airway Airway Patent Oxygen No O2 Oral cavity Clear +Gag reflex Trachea hj Midline Breathing/Chest Respiratory pattern Regular Respiratory effort Spontaneous Unlabored Breath sounds Clear Chest inspection Symmetrical Circulation Heart rhythm Sinus rhythm Heart tones Present Pulses Palpable Color Barnhart Temperature Warm Dry Disability Alert. 17:59 Reassessment Airway Airway Patent Oxygen No O2 Oral cavity Clear Trachea Midline hj Breathing/Chest Respiratory pattern Regular Respiratory effort Spontaneous Unlabored Breath sounds Clear Chest inspection Symmetrical Circulation Heart rhythm Sinus rhythm Heart tones Present Pulses Palpable Color Barnhart Temperature Warm Dry Disability Alert. 18:45 Reassessment Airway Airway Patent Oxygen No O2 Oral cavity Clear +Gag reflex Trachea hj Midline Breathing/Chest Respiratory pattern Regular Respiratory effort Spontaneous Unlabored Breath sounds Clear Chest inspection Symmetrical Circulation Heart rhythm Sinus rhythm Heart tones Present Pulses Palpable Color Barnhart Temperature Warm Dry Disability Alert. Assessment: 17:32 General: Appears in no apparent distress. uncomfortable, Behavior is cooperative, aj appropriate for age, crying. Pain: Complains of pain in anterior aspect of right shoulder, right bicep and posterior aspect of right shoulder. Neuro: Level of Consciousness is awake, alert, obeys commands, Oriented to person, place, time, situation, Appropriate for age. Respiratory: Airway is patent Respiratory effort is even, unlabored, Respiratory pattern is regular, symmetrical. Derm: Skin is intact, is healthy with good turgor, Skin is pink, warm \T\ dry. normal. Musculoskeletal: Bony deformity noted of anterior aspect of right shoulder Reports pain in anterior aspect of right shoulder, posterior aspect of right shoulder, right tricep and right upper arm. 18:40 Reassessment: Patient appears in no apparent distress at this time. Patient and/or cc3 family updated on plan of care and expected duration. Pain level reassessed. Patient is alert, oriented x 3, equal unlabored respirations, skin warm/dry/pink. patient stated that pain score decreased from initially more than 10 to 6/10 now. Patient states symptoms have improved. 19:40 General: Appears uncomfortable, Behavior is calm, cooperative, appropriate for age. ea Pain: Complains of pain in right upper arm and posterior aspect of right shoulder and anterior aspect of right shoulder Pain currently is 7 out of 10 on a pain scale. Quality of pain is described as aching, Is continuous. Neuro: Level of Consciousness is awake, alert, obeys commands, Oriented to person, place, time, situation. Respiratory: Airway is patent Respiratory effort is even, unlabored, Respiratory pattern is regular, symmetrical. Derm: Skin is pink, warm \T\ dry. Musculoskeletal: Bony deformity noted of posterior aspect of right shoulder and anterior aspect of right shoulder. 20:12 Reassessment: Patient and/or family updated on plan of care and expected duration. Pain ea level reassessed. Patient is alert, oriented x 3, equal unlabored respirations, skin warm/dry/pink. Discharge instructions given to patient and significant other, verbalized the understanding of instruction. Patient states symptoms have improved. Vital Signs: 17:32 BP 155 / 114; Pulse 143; Resp 21; Temp 97.8; Pulse Ox 93% on R/A; Weight 89.81 kg; aj Height 5 ft. 5 in. (165.10 cm); 18:30 Pulse 85; Resp 20; Pulse Ox 95% on R/A; cc3 19:09 BP 180 / 62; Pulse 84; Resp 16; Pulse Ox 95% on R/A; iw 20:15 BP 146 / 50; Pulse 80; Resp 18; Pulse Ox 99% on R/A; Pain 0/10; ea 17:32 Body Mass Index 32.95 (89.81 kg, 165.10 cm) aj Spalding Coma Score: 17:32 Eye Response: spontaneous(4). Verbal Response: oriented(5). Motor Response: obeys aj commands(6). Total: 15. Trauma Score (Adult): 17:32 Eye Response: spontaneous(1); Verbal Response: oriented(1); Motor Response: obeys aj commands(2); Systolic BP: > 89 mm Hg(4); Respiratory Rate: 10 to 29 per min(4); Spalding Score: 15; Trauma Score: 12 ED Course: 17:15 Patient arrived in ED. rg4 17:15 Jarad Ruano MD is Private Physician. rg4 17:31 Oren Sow PA is PHCP. cp 17:31 Osvaldo Hartley MD is Attending Physician. cp 17:32 Thermoregulation: warm blanket given to patient. hj 17:33 Triage completed. aj 17:35 yTler Nesbitt, LINCOLN is Primary Nurse. hj 17:38 Arm band placed on right wrist. Patient placed in an exam room, on a stretcher. aj 18:00 Patient has correct armband on for positive identification. Bed in low position. Call light in reach. Side rails up X 1. Adult w/ patient. 18:00 Patient maintains SpO2 saturation greater than 95% on room air. hj 18:06 EKG done, by ear mold laboratory technician. reviewed by Oren MASON. 3 18:07 Inserted saline lock: 24 gauge in left forearm, using aseptic technique. 3 18:38 X-ray completed. Portable x-ray completed in exam room. Patient tolerated procedure bb2 well. 18:39 XRAY Shoulder RIGHT 2 view In Process Unspecified. EDMS 18:45 X-ray completed. Portable x-ray completed in exam room. Patient tolerated procedure bb2 well. 19:00 Report given to LINCOLN Rojo. hj 19:50 Miller, Alia, RN is Primary Nurse. ea 19:55 Jeison Ernst MD is Referral Physician. cp 20:13 No provider procedures requiring assistance completed. IV discontinued, intact, ea bleeding controlled, No redness/swelling at site. Pressure dressing applied. Administered Medications: 18:00 Drug: NS 0.9% 250 ml Route: IV; Rate: bolus; Site: left antecubital; cc3 18:40 Follow up: IV Status: Completed infusion cc3 18:10 Drug: fentaNYL (PF) 50 mcg Route: IVP; Site: left antecubital; cc3 18:45 Follow up: Response: No adverse reaction; Pain is decreased cc3 18:41 Drug: NS 0.9% 1000 ml Route: IV; Rate: 100 ml/hr; Site: left forearm; hj 20:19 Follow up: Response: No adverse reaction; IV Status: Completed infusion ea 19:32 Drug: Dilaudid 0.5 mg Route: IVP; Site: left forearm; ea 20:12 Follow up: Response: No adverse reaction; Pain is decreased ea Intake: 20:14 IV: 250ml (IV Fluid); Total: 250ml. ea Outcome: 19:56 Discharge ordered by MD. cp 20:13 Discharged to home ambulatory, with significant other. ea 20:13 Condition: improved 20:13 Discharge instructions given to patient, significant other, Instructed on discharge instructions, follow up and referral plans. medication usage, Demonstrated understanding of instructions, follow-up care, medications, Prescriptions given X 1. 20:14 Patient's length of stay was not longer than 2 hours. ea 20:20 Patient left the ED. ea Signatures: Dispatcher [employer] EDAura Camacho RN RN aj Williams, Irene, RN RN iw Joaquin, Henry, RN RN hj Page, Corey, PA PA cp Garcia, Rubi rg4 Le Caruso 3 Alia Miller RN RN ea Bock, Brittany 2 Janay Hernández 3 Rachel Potter cc3
--- NOTE | 2018-02-27 19:56 | EDPHYS ---
Physician Documentation [facility] Name: Susana Jaffe Age: 68 yrs Sex: Female : 1950 Arrival Date: 02/27/2018 Time: 17:15 Bed 2 Private MD: Jarad Ruano ED Physician Osvaldo Hartley HPI: 02/27 17:58 This 68 yrs old Female presents to ER via Ambulatory with complaints of Fall cp Injury, Shoulder Injury. 18:00 The patient or guardian complains of decreased range of motion, an injury, pain, that cp is acute, swelling, tenderness. right shoulder. Context: The problem was sustained at home, resulted from a fall, from a standing position, The patient experiences decreased range of motion, when attempts to raise arm. Onset: The symptoms/episode began/occurred today. 18:00 Associated signs and symptoms: Pertinent positives: tingling, Pertinent negatives: cp chest pain, neck pain, shortness of breath, Weakness in right arm. Severity of symptoms: in the emergency department the symptoms are unchanged, despite home interventions. Historical: - Allergies: 17:38 No Known Allergies; aj - Home Meds: 17:38 aspirin 81 mg Oral TbEC 1 tab once daily [Active]; levothyroxine 25 mcg tab 1 tab once aj daily [Active]; lisinopril-hydrochlorothiazide 20-12.5 mg oral tab 1 tab once daily [Active]; simvastatin 40 mg Oral tab 1 tab once daily [Active]; fenofibrate oral oral [Active]; - PMHx: 17:38 Hypertension; Hyperlipidemia; Hypothyroidism; Cancer, Breast; aj - PSHx: 17:38 Tonsillectomy; Hysterectomy; Thyroidectomy; Appendectomy; Cholecystectomy; colon aj resection; Right shoulder; Mastectomy Left; - Immunization history: Last tetanus immunization: - up to date. - Social history:: Smoking status: Patient uses tobacco products, smokes one-half pack cigarettes per day. - Ebola Screening: : Patient negative for fever greater than or equal to 101.5 degrees Fahrenheit, and additional compatible Ebola Virus Disease symptoms Patient denies exposure to infectious person Patient denies travel to an Ebola-affected area in the 21 days before illness onset No symptoms or risks identified at this time. ROS: 18:05 Constitutional: Negative for body aches, chills, fever, poor PO intake. cp 18:05 Eyes: Negative for injury, pain, redness, and discharge. cp 18:05 ENT: Negative for drainage from ear(s), ear pain, sore throat, difficulty swallowing, difficulty handling secretions. 18:05 Neck: Negative for pain with movement, pain at rest, stiffness, bony tenderness. 18:05 Cardiovascular: Negative for chest pain, edema, palpitations. 18:05 Respiratory: Negative for cough, shortness of breath, wheezing. 18:05 Abdomen/GI: Negative for abdominal pain, nausea, vomiting, and diarrhea. 18:05 Back: Negative for pain at rest, pain with movement, radiated pain. 18:05 MS/extremity: Positive for decreased range of motion, pain, swelling, tenderness, of the anterior aspect of right shoulder. 18:05 Skin: Negative for cellulitis, rash. 18:05 Neuro: Positive for tingling, of the right hand, Negative for altered mental status, headache, loss of consciousness, weakness. 18:05 All other systems are negative. Exam: 18:10 ECG was reviewed by the Attending Physician. cp 18:12 Head/Face: Normocephalic, atraumatic. Eyes: Pupils equal round and reactive to light, cp extra-ocular motions intact. Lids and lashes normal. Conjunctiva and sclera are non-icteric and not injected. Cornea within normal limits. Periorbital areas with no swelling, redness, or edema. ENT: Nares patent. No nasal discharge, no septal abnormalities noted. Tympanic membranes are normal and external auditory canals are clear. Oropharynx with no redness, swelling, or masses, exudates, or evidence of obstruction, uvula midline. Mucous membranes moist. Neck: Trachea midline, no thyromegaly or masses palpated, and no cervical lymphadenopathy. Supple, full range of motion without nuchal rigidity, or vertebral point tenderness. No Meningismus. 18:12 Constitutional: The patient appears alert, awake, non-diaphoretic, non-toxic, well developed, well nourished, in obvious pain, uncomfortable. 18:12 Chest/axilla: Inspection: deformity, of the right clavicle Palpation: tenderness, that cp is severe, of the right clavicle. 18:12 Cardiovascular: Rate: tachycardic, Rhythm: regular, Pulses: Pulses are 2+ in right radial artery and left radial artery. Edema: is not appreciated, JVD: is not appreciated. 18:12 Respiratory: the patient does not display signs of respiratory distress, Respirations: normal, no use of accessory muscles, no retractions, no splinting, no tachypnea, labored breathing, is not present, Breath sounds: are clear throughout, no decreased breath sounds, no stridor, no wheezing. 18:12 Abdomen/GI: Exam negative for discomfort, distension, guarding, Inspection: abdomen appears normal. 18:12 Back: pain, is absent, ROM is normal, vertebral tenderness, is not appreciated. 18:12 Musculoskeletal/extremity: Extremities: grossly normal except: noted in the right shoulder: decreased ROM, pain, tenderness, ROM: limited passive range of motion due to pain, in the right shoulder, Perfusion: the extremity is normally perfused throughout, Sensation intact. 18:12 Skin: cellulitis, is not appreciated, no rash present. 18:12 Neuro: Orientation: to person, place \T\ time. Mentation: lucid, able to follow commands. Vital Signs: 17:32 BP 155 / 114; Pulse 143; Resp 21; Temp 97.8; Pulse Ox 93% on R/A; Weight 89.81 kg; aj Height 5 ft. 5 in. (165.10 cm); 18:30 Pulse 85; Resp 20; Pulse Ox 95% on R/A; cc3 19:09 BP 180 / 62; Pulse 84; Resp 16; Pulse Ox 95% on R/A; iw 20:15 BP 146 / 50; Pulse 80; Resp 18; Pulse Ox 99% on R/A; Pain 0/10; ea 17:32 Body Mass Index 32.95 (89.81 kg, 165.10 cm) aj Alix Coma Score: 17:32 Eye Response: spontaneous(4). Verbal Response: oriented(5). Motor Response: obeys aj commands(6). Total: 15. Trauma Score (Adult): 17:32 Eye Response: spontaneous(1); Verbal Response: oriented(1); Motor Response: obeys aj commands(2); Systolic BP: > 89 mm Hg(4); Respiratory Rate: 10 to 29 per min(4); Alix Score: 15; Trauma Score: 12 Procedures: 20:15 Splinting: Splint applied to right shoulder using sling, applied by nurse. Examined by cp me, post splint application: neurovascular intact, Patient tolerated well. MDM: 17:31 Patient medically screened. cp 18:00 Differential diagnosis: Anterior dislocation with fracture, Anterior dislocation cp without fracture, Posterior dislocation with fracture, Posterior dislocation without fracture, humeral head fracture, clavicle fracture. 19:55 Data reviewed: vital signs, nurses notes, EKG, radiologic studies, plain films. 19:55 Test interpretation: by ED physician or midlevel provider: plain radiologic studies. cp Counseling: I had a detailed discussion with the patient and/or guardian regarding: the historical points, exam findings, and any diagnostic results supporting the discharge/admit diagnosis, radiology results, the need for outpatient follow up, a orthopedic surgeon, to return to the emergency department if symptoms worsen or persist or if there are any questions or concerns that arise at home. Response to treatment: the patient's symptoms have markedly improved after treatment, and as a result, I will discharge patient. ED course: VSS. Pain improved. Will discharge to home for continued monitoring. 02/27 17:51 Order name: XRAY Shoulder RIGHT 2 view; Complete Time: 18:52 02/27 18:53 Interpretation: Reviewed. 02/27 17:51 Order name: EKG; Complete Time: 17:52 02/27 17:51 Order name: IV; Complete Time: 18:10 02/27 17:51 Order name: EKG - Nurse/Tech; Complete Time: 18:02 02/27 18:52 Order name: Sling; Complete Time: 20:12 cp EC:10 Rate is 91 beats/min. QRS [place] is Normal. MI interval is normal. QRS interval is cp normal. QT interval is normal. Interpreted by me. Reviewed by me. Administered Medications: 18:00 Drug: NS 0.9% 250 ml Route: IV; Rate: bolus; Site: left antecubital; cc3 18:40 Follow up: IV Status: Completed infusion cc3 18:10 Drug: fentaNYL (PF) 50 mcg Route: IVP; Site: left antecubital; cc3 18:45 Follow up: Response: No adverse reaction; Pain is decreased cc3 18:41 Drug: NS 0.9% 1000 ml Route: IV; Rate: 100 ml/hr; Site: left forearm; hj 20:19 Follow up: Response: No adverse reaction; IV Status: Completed infusion ea 19:32 Drug: Dilaudid 0.5 mg Route: IVP; Site: left forearm; ea 20:12 Follow up: Response: No adverse reaction; Pain is decreased ea Disposition: 02/27/18 19:56 Discharged to Home. Impression: Displaced fracture of lateral end of right clavicle. - Condition is Stable. - Discharge Instructions: Clavicle Fracture. - Prescriptions for Tylenol- Codeine #3 300-30 mg Oral Tablet - take 2 tablets by ORAL route every 6 hours As needed; 20 tablet. - Medication Reconciliation Form, Thank You Letter, Antibiotic Education, Prescription Opioid Use form. - Follow up: Jeison Ernst MD; When: 1 - 2 days; Reason: Recheck today's complaints. - Problem is new. - Symptoms have improved. Addendum: 03/03/2018 01:33 Co-signature as Attending Physician, Osvaldo Hartley MD. r n Signatures: Dispatcher [employer] EDMS Aura Frost RN RN aj Nieto, Roman, MD MD rn Joaquin, Henry, RN RN hj Page, Corey, PA PA cp Antunez, Elena, RN RN ea Cordel, Charlene cc3 Corrections: (The following items were deleted from the chart) 02/27 20:20 19:56 02/27/2018 19:56 Discharged to Home. Impression: Displaced fracture of lateral ea end of right clavicle. Condition is Stable. Forms are Medication Reconciliation Form, Thank You Letter, Antibiotic Education, Prescription Opioid Use. Follow up: Jeison Ernst; When: 1 - 2 days; Reason: Recheck today's complaints. Problem is new. Symptoms have improved. cp
== END 2018-02-27 20:20 | disposition home or self-care (01) ==
LOC: ER 17:14
DX: S42.031A Displaced fracture of lateral end of right clavicle, initial encounter for closed fracture (principal); W18.39XA Other fall on same level, initial encounter; Y93.9 Activity, unspecified; Y92.9 Unspecified place or not applicable; Z79.82 Long term (current) use of aspirin; Z85.3 Personal history of malignant neoplasm of breast; I10 Essential (primary) hypertension; E78.5 Hyperlipidemia, unspecified; E03.9 Hypothyroidism, unspecified; F17.210 Nicotine dependence, cigarettes, uncomplicated
CPT/HCPCS: 73030; 93005; 99284; J1170; J3010; J7030

== ENCOUNTER 2020-03-29 11:00 | Emergency (ER) | payer OTHER ==
--- OUTSIDE RECORDS SUMMARY | 2020-03-29 11:19 | XMS REPORT | Clinical Summary ---
:1950 Author Organization [facility] Address [address] [place] [address] Care Team Providers Name Role Phone MD Bindu Primary Care Provider Allergies Active Allergy Reactions Severity Noted Date Comments Iodine And Iodide Containing Products 12/2015 Other 01/12/2016 "Seafood" "Cats" Medications Medication Sig Dispensed Refills Start Date End Date Status fenofibrate (TRICOR) 145 Take 145 mg by 0 01/25/2016 Active MG tablet mouth once daily. levothyroxine Take 25 mcg by 3 01/21/2016 Active (SYNTHROID, LEVOTHROID) mouth once 25 MCG tablet daily. aspirin (ECOTRIN) 81 MG Take 81 mg by 0 Active enteric coated tablet mouth daily. lisinopril-hydrochloroth Take 1 tablet by 0 Active iazide mouth daily. (PRINZIDE,ZESTORETIC) 20-12.5 mg per tablet simvastatin (ZOCOR) 40 Take 40 mg by 0 Active MG tablet mouth daily. Active Problems Problem Noted Date Spondylolisthesis, lumbar region 08/01/2017 Lumbar stenosis 08/01/2017 Left knee pain 12/01/2015 Overview: Lateral, medial, and anterior and posterior; S/P Meniscal repair 03/2015 Plan: Proceed with surgery. Discussed th e risks, benefits, and possible complications. Family History Medical History Relation Name Comments Cancer Father prostate Heart disease Mother Hypertension Mother Relation Name Status Comments Father Mother Social History Tobacco Use Types Packs/Day Years Used Date Current Every Day Smoker Cigarettes 0.5 30 Smokeless Tobacco: Never Used Alcohol Use Drinks/Week oz/Week Comments No Sex Assigned at Date Recorded Not on file Last Filed Vital Signs Not on file Plan of Treatment Health Maintenance Due Date Last Done Comments BREAST CANCER SCREENING 1999 COLONOSCOPY SCREENING 1999 SHINGLES VACCINES (#1) 1999 65+ PNEUMOCOCCAL VACCINE (1 of 1 - PPSV23) 2014 INFLUENZA VACCINE 03/09/2020 Implants Implanted Type Area Sap Director Device Shelf Model / Serial Identifier Expiration / Lot Date Hemostat Absrbl Biosurgery 4x4in Ltxf Surgicel - [id number] ardiovascula Anterio ETHICON - 01/06/2020 1963 / Implanted: Qty: 1 on 08/01/2017 by Teto Salas MD at [facility] r Implants r: / Spine [id number] Lumbar Chip Canc Allograft Leader Crs 15cc 0.1-4mm - [id number] Human Tissue Anterio MUSCULOSKELETAL 10/26/2019 [id number] / Implanted: Qty: 1 on 08/01/2017 by Teto Salas MD at [facility] Implants r: TRANSPLANT / Spine FOUNDATION [id number] Lumbar Concelltrate 100 10.0cc - [id number] Human Tissue N/A: 12/29/2021 [id number] / Implanted: Qty: 1 on 08/01/2017 by Teto Salas MD at [facility] Implants N/A / Description:ANTERIOR Concelltrate 100 10.0cc - [id number] Human Tissue N/A: N/A 12/29/2021 [id number] / Implanted: Qty: 1 on 08/01/2017 by Teto Salas MD at [facility] Implants / Chip Canc Allograft Leader Crs 15cc 0.1-4mm - [id number] Hu man Tissue Posterior: MUSCULOSKELETAL 12/30/2019 [id number] / Implanted: Qty: 1 on 08/01/2017 by Teto Salas MD at [facility] Implants Spine TRANSPLANT / Lumbar FOUNDATION [id number] Chip Canc Allograft Leader Crshd 30cc 0.1-4mm - [id number] Hu man Tissue Posterior: MUSCULOSKELETAL 05/04/2020 [id number] / Implanted: Qty: 1 on 08/01/2017 by Teto Salas MD at [facility] Implants Spine TRANSPLANT / Lumbar FOUNDATION [id number] Concelltrate 100 10.0cc - [id number] Human Tissue N/A: N/A 12/29/2021 [id number] / Implanted: Qty: 1 on 08/01/2017 by Teto Salas MD at [facility] Implants / Description:posterior Concelltrate 100 10.0cc - [id number] Human Tissue Implants N/A: N/A 12/29/2021 [id number] / Implanted: Qty: 1 on 08/01/2017 by Teto Salas MD at [facility] / Concelltrate 100 10.0cc - [id number] Human Tissue Implants N/A: N/A 12/29/2021 [id number] / Implanted: Qty: 1 on 08/01/2017 by Teto Salas MD at [facility] / Description:posterior Melecio-A Median Alif Cage 10, 30x39 H 12mm - [id number] IPM IMPLANT Anterior: Spine LDR SPINE 07/09/2020 [id number] / Implanted: Qty: 1 on 08/01/2017 by Teto Salas MD at [facility] DEVICES Lumbar / [id number] Description:ANTERIOR Melecio-A Median Alif Cage 10, 30x39 H 12mm - [id number] IPM IMPLANT Anterior: Spine LDR SPINE 09/06/2018 [id number] / Implanted: Qty: 1 on 08/01/2017 by Teto Salas MD at [facility] DEVICES Lumbar / [id number] Description:ANTERIOR Melecio-A Plate +0.5mm Thick Medium - [id number] IPM IMPLANT Anterior: LD R SPINE 04/08/2021 [id number] / Implanted: Qty: 1 on 08/01/2017 by Teto Salas MD at [facility] DEVICES Spine Lumbar / [id number] Melecio-A Plate +0.5mm Thick Medium - [id number] IPM IMPLANT Anterior: LD R SPINE 08/09/2021 [id number] / Implanted: Qty: 1 on 08/01/2017 by Teto Salas MD at [facility] DEVICES Spine Lumbar / [id number] Arrow Two-Lumen Central Venous Catheteri zation Kit With Blue Flextip, Arrowgard Blue Plus Catheter, Sharps Safety Features, And Maximal Barrier Precautions Kit, Venous Right: ARROW 10/06/2018 [id number] / Implanted: Qty: 1 on 08/01/2017 by Nathan Vee MD at [facility] Access [employer] A DIV OF [id number] TELEFLEX Description:RIGHT CVC Henri Lmbr Thorc Nicole 3 - [id number] Spinal Implants Posterior: Spine JOANN SPINE [id number] / Implanted: Qty: 6 on 08/01/2017 by Teto Salas MD at [facility] Lumbar / VENDOR LOT NA Screw Spinal Plyaxl 6.5x40mm Nicole Iii - [id number] Spinal Impl ants Posterior: Spine JOANN SPINE [id number] / Implanted: Qty: 2 on 08/01/2017 by Teto Salas MD at [facility] Lumbar / VENDOR LOT NA Screw Plyaxl Lmbr Thor 5.5x40mm Ns Nicole 3 - [id number] Spinal Implants Posterior: Spine JOANN SPINE [id number] / Implanted: Qty: 3 on 08/01/2017 by Teto Salas MD at [facility] Lumbar / VENDOR LOT NA Screw Spinal Plyaxl 5.5x35mm Nicole Iii - [id number] Spinal Impl ants Posterior: Spine JOANN SPINE [id number] / Implanted: Qty: 1 on 08/01/2017 by Tteo Salas MD at [facility] Lumbar / VENDOR LOT NA Kong Spinal Rads 6x70mm Nicole Iii - [id number] Spinal Implants Poste rior: Spine JOANN SPINE [id number] / Implanted: Qty: 2 on 08/01/2017 by Teto Salas MD at [facility] Lumbar / VENDOR LOT NA Results Not on fileafter 03/29/2019 Insurance Payer Benefit Plan / Subscriber ID Effective Dates Phone Addre ss Type Group MEDICARE MEDICARE PART A [id number] 2014-Present [place], [place] Medicare AND B AETNA AETNA PPO OPEN [id number] 2000-Present PPO CHOICE Advance Directives For more information, please contact: [phone] Type Date Recorded Patient Document Advisor Explanati on Advance Directives, 02/02/2016 7:54 AM Living Will and Medical Power of Data Security Coordinator Advance Directives, 07/16/2017 12:34 PM Living Will and Medical Power of Data Security Coordinator Code Status Date Activated Date Inactivated Comments Full Code 08/01/2017 6:45 PM 08/04/2017 2:42 PM Code Status decision reached by: Patient
--- OUTSIDE RECORDS SUMMARY | 2020-03-29 11:20 | XMS REPORT | Continuity of Care Document ---
:1950 Author Organization [facility] t Address [address] [place] [address] Care Team Providers Name Role Phone Bindu SNIDER Primary Care Physician Problems Condition Condition Condition Status Onset Resolution Last Treating Co mments Source Name Details Category Date Date Treatment Clinician Date Spondyloli Spondyloli Disease Active [place] sthesis, sthesis, 24 [facility] i lumbar lumbar 00:00: st region region 00 Lumbar Lumbar Disease Active [place] stenosis stenosis 08-01 Method i 00:00: st 00 Left knee Left knee Disease Active Overview: [place] pain pain 5-25 Lateral, Methodi 00:00: medial, st 00 and anterior and posterior ; S/P Meniscal repair 03/2015Pl an: Proceed with surgery. Discussed the risks, benefits, and possible complicat ions. Closed Closed Problem Active [facility] displaced displaced [facility] - fracture fracture [facility] l [facility]romial acromial Outpat i end of end of ent right right Clinics clavicle, clavicle, initial initial encounter encounter Pain, Pain, Diagnosis Active [facility] joint, joint, [facility] - shoulder, shoulder, Jozef hernesto right right l Outpati ent Clinics Closed Closed Diagnosis Active [facility] displaced displaced [facility] - fracture fracture [facility] of of l acromial acromial Outpat i end of end of ent right right Clinics clavicle clavicle with with routine routine healing, healing, subsequent subsequent encounter encounter Allergies, Adverse Reactions, Alerts Allergy Allergy Status Severity Reaction(s) Onset Inactive Treating Comm ents Source Name Type Date Date Clinician Iodine Propensi Active [facility] to 01-11 [facility] Iodide adverse 00:00: st Containi reaction 00 ng s to Products drug Other Propensi Active "Seafood" [place] on ty to 01-11 "Cats" Methodi adverse 00:00: st reaction 00 s Iodine Adverse Active Info Not [facility] Reaction Available [facility] Cat Hair Adverse Active Info Not [facility] t Extract Reaction Available [facility] Family History Family Member Diagnosis Comments Start Date Stop Date Source Natural father Cancer [place] [facility] Natural mother Heart disease [place] [facility] Natural mother Hypertension [place] [facility] Social History Social Habit Start Date Stop Date Quantity Comments Source History of tobacco Cigarette Smoker [place] use [facility] Sex Assigned At [facility] [facility] Cigarettes smoked 2017-10-02 2017-10-02 [place] current (pack per 00:00:00 00:00:[address] ) - Reported Cigarette 2017-10-02 2017-10-02 [place] pack-years 00:00:00 00:00:00 [facility] Tobacco use and 2017-10-02 2017-10-02 Never used [place] exposure 00:00:00 00:00:00 [facility] Alcohol intake 2017-10-02 2017-10-02 Current [place] 00:00:00 00:00:00 non-drinker of Sabianism alcohol (finding) Smoking Status Start Date Stop Date Source Current every day smoker 2017-10-02 00:00:00 Tyrel santiago [facility]ian[facility] Medications Ordered Filled Start Stop Current Ordering Indication Dosage Frequency Signature Comments Components Source Medication Medication Date Date Medication? Clinician (SIG) Name Name Tylenol # 3 Tylenol # 3 Yes Mig[facility] one tab [facility] 03-04 Bennett Uma - 00:00: [facility]oria 00 [facility] aspirin Yes 81mg QD Take 81 mg [place] (ECOTRIN) 08-04 by mouth Method i 81 MG 10:42: daily. st enteric 15 coated tablet lisinopril- Yes 1{tbl} QD Take 1 [place] hydrochloro - tablet by Met hodi thiazide 10:42: mouth st (PRINZIDE,Z 15 daily. ESTORETIC) 20-12.5 mg per tablet simvastatin Yes 40mg QD Take 40 mg [place] (ZOCOR) 40 08-04 by mouth Metho di MG tablet 10:42: daily. st 15 fenofibrate Yes 145mg QD Take 145 [place] (TRICOR) 7-19 mg by Methodi 145 MG 00:00: mouth once st tablet 00 daily. levothyroxi Yes 25ug QD Take 25 Tyrel ston ne 7-15 mcg by Methodi (SYNTHROID, 00:00: mouth once st LEVOTHROID) 00 daily. 25 MCG tablet Multivitami Multivitami Yes Migel not [facility] n Adult n Adult Bennett defined [facility] Aspirin 81 Aspirin 81 Yes Migel not [facility] Donald defined [facility] Lisinopril- Lisinopril- Yes Migel not [facility] Hydrochloro Hydrochloro Donald defined [facility] - thiazide thiazide [facility] Simvastatin Simvastatin Yes Migel not [facility] Bennett defined [facility] Fenofibrate Fenofibrate Yes Migel not [facility] Bennett defined [facility] Levothyroxi Levothyroxi Yes Migel not [facility] ne Sodium ne Sodium Donald defined [facility] Acetaminoph Acetaminoph Yes Migel not [facility] en-Codeine en-Codeine Donald defined [facility] #3 #3 [facility] Procedures This patient has no known procedures. Plan of Care Planned Activity Planned Date Details Comments Source Future Scheduled 2020-03-09 INFLUENZA VACCINE [facility] Test 00:00:00 [code = INFLUENZA VACCINE] Future Scheduled 2014 65+ PNEUMOCOCCAL [place] [facility] Test 00:00:00 VACCINE (1 of 1 - PPSV23) [code = 65+ PNEUMOCOCCAL VACCINE (1 of 1 - PPSV23)] Future Scheduled 1999 BREAST CANCER [facility] thodist Test 00:00:00 SCREENING [code = BREAST CANCER SCREENING] Future Scheduled 1999 COLONOSCOPY SCREENING [facility] Sabianism Test 00:00:00 [code = COLONOSCOPY SCREENING] Future Scheduled 1999 SHINGLES [facility]INES (#[facility] Test 00:00:00 [code = SHINGLES VACCINES (#1)] Encounters Start End Encounter Admission Attending Care Care Encounter Source Date/Time Date/Time Type Type Clinicians Facility Department ID 2018-04-01 2018-04-01 Outpatient Soledad Hicks [id number] [facility] [address] 14:[facility] 2018-03-04 2018-03-04 Outpatient Soledad Hicks [id number] [facility] 11:00[facility]00 11:00:[facility] Results This patient has no known results.
[2020-03-29] MEDS ORDERED: ONDANSETRON 4 MG/2 ML VIAL ONE (12:02)
[2020-03-29] MEDS ORDERED: MORPHINE 4 MG/ML SYR ONE (12:02)
[2020-03-29 13:02] LABS: Absolute Lymphocytes (CBC) 2.1 K/uL (0.7-4.9); Basophils % 0.9 % (0-1.3); Hematocrit 42.9 % (36.0-45.0); RBC Red Blood Cell Count 4.56 M/uL (3.86-4.86)
[2020-03-29 13:22] LABS: Albumin 3.9 g/dL (3.4-5.0); Bilirubin Direct 0.2 mg/dL (0-0.2); Bilirubin Total 0.5 mg/dL (0.2-1.0); Potassium 3.6 mmol/L (3.5-5.1); Protein, Total 7.8 g/dL (6.4-8.2)
[2020-03-29] MEDS ORDERED: FENTANYL CITR 100 MCG/2 ML ONE (13:25)
--- NOTE | 2020-03-29 14:15 | RAD REPORT ---
EXAM DESCRIPTION: CT - Abdomen Pelvis W Contrast - 03/29/2020 1:59 pm CLINICAL HISTORY: Constipation;Abd pain COMPARISON: No comparisons TECHNIQUE: Biphasic, helical CT imaging of the abdomen and pelvis was performed following 100 ml non -ionic IV contrast. Oral contrast was given. All CT scans are performed using dose optimization technique as appropriate and may include automated exposure control or mA/KV adjustment according to patient size. FINDINGS: No suspicious findings in the lung bases. Liver shows fatty infiltration pattern with no focal lesion. Spleen and pancreas show no suspicious f indings. Gallbladder is absent. Biliary tree within normal limits. Symmetric renal function is seen with no hydronephrosis or suspicious renal mass. No pyelonephritis o r acute parenchymal process. No bladder abnormalities. No adrenal abnormalities. Uterus is absent. Ov jag are absent or atrophic. No adnexal mass. No dilated bowel loops or bowel wall thickening. Rectosigmoid anastomosis shows no suspicious finding s. Cecum is low-lying in the pelvis. Appendix is surgically absent by history. No free air, free flui d or inflammatory stranding. No hernia, mass or bulky lymphadenopathy. Disc and bony degenerative changes are present. Surgical hardware present L3-L5. Arterial tree calcif ications are present with no acute finding. IMPRESSION: Contrast enhanced CT abdomen and pelvis showing no acute or emergent finding. Nonacute findings detailed in the body of the report.
[2020-03-29] MEDS ORDERED: NA CHLORIDE 0.9% 1,000 ML ONE (14:56)
--- NOTE | 2020-03-29 15:59 | ER ---
Nurse's Notes [facility] Name: Susana Jaffe Age: 70 yrs Sex: Female : 1950 Arrival Date: 03/29/2020 Time: 11:04 Bed 20 Private MD: Jarad Ruano Diagnosis: Unspecified abdominal pain Presentation: 03/29 11:42 Chief complaint: Patient states: Left sided abdominal pain, constipation x 2 weeks, hx jl7 of ruptured colon 2009 states "It's feeling like the same thing at this point.". Coronavirus screen: Client denies travel out of the [place] in the last 14 days. At this time, the client does not indicate any symptoms associated with coronavirus-19. Ebola Screen: No symptoms or risks identified at this time. Initial Sepsis Screen: Does the patient meet any 2 criteria? No. Patient's initial sepsis screen is negative. Does the patient have a suspected source of infection? No. Patient's initial sepsis screen is negative. Risk Assessment: Do you want to hurt yourself or someone else? Patient reports no desire to harm self or others. Onset of symptoms was March 2020. Care prior to arrival: "Lots of laxatives.". 11:42 Method Of Arrival: Ambulatory jl7 11:42 Acuity: CINDY 3 jl7 Historical: - Allergies: 11:47 No Known Allergies; jl7 - Home Meds: 11:47 aspirin 81 mg Oral TbEC 1 tab once daily [Active]; levothyroxine 25 mcg tab 1 tab once jl7 daily [Active]; lisinopril-hydrochlorothiazide 20-12.5 mg Oral tab 1 tab once daily [Active]; simvastatin 40 mg Oral tab 1 tab once daily [Active]; fenofibrate Oral [Active]; - PMHx: 11:47 Cancer, Breast; Hyperlipidemia; Hypertension; Hypothyroidism; ruptured colon; jl7 - PSHx: 11:47 Tonsillectomy; Hysterectomy; Thyroidectomy; Appendectomy; Cholecystectomy; colon jl7 resection; Mastectomy Left; Right shoulder; back - NO MRI; - Immunization history:: Adult Immunizations not up to date. - Social history:: Smoking status: Patient reports the use of cigarette tobacco products, smokes one-half pack cigarettes per day. Screenin:00 Abuse screen: Denies threats or abuse. Denies injuries from another. Nutritional jl7 screening: No deficits noted. Tuberculosis screening: No symptoms or risk factors identified. Fall Risk IV access (20 points). Total Ybarra Fall Scale indicates No Risk (0-24 pts). Assessment: 11:30 General: Appears in no apparent distress. uncomfortable, Behavior is calm, cooperative, jl7 appropriate for age, crying. Pain: Complains of pain in left upper quadrant Pain currently is 4 out of 10 on a pain scale. at worst was 12 out of 10 on a pain scale. Neuro: Level of Consciousness is awake, alert, obeys commands, Oriented to person, place, time, situation. Cardiovascular: Patient's skin is warm and dry. Respiratory: Airway is patent Respiratory effort is even, unlabored, Respiratory pattern is regular, symmetrical. GI: Abdomen is round non-distended, Abd is soft X 4 quads Abd is non tender in right upper quadrant, right lower quadrant and left lower quadrant Abdomen is tender to palpation in left upper quadrant. : No signs and/or symptoms were reported regarding the genitourinary system. Derm: Skin is pink, warm \\T\\ dry. 12:30 Reassessment: Patient appears in no apparent distress at this time. No changes from jl7 previously documented assessment. Patient and/or family updated on plan of care and expected duration. Pain level reassessed. Patient is alert, oriented x 3, equal unlabored respirations, skin warm/dry/pink. 13:30 Reassessment: Patient appears in no apparent distress at this time. Patient and/or jl7 family updated on plan of care and expected duration. Pain level reassessed. Patient is alert, oriented x 3, equal unlabored respirations, skin warm/dry/pink. 14:30 Reassessment: ERP at bedside discussing results and POC. jl7 Vital Signs: 11:42 BP 155 / 75; Pulse 94; Resp 19; Temp 97.8; Pulse Ox 94% ; Pain 4/10; jl7 12:30 BP 112 / 89; Pulse 126; Resp 19 S; Pulse Ox 89% on R/A; jl7 13:30 BP 101 / 75; Pulse 120; Resp 17; Pulse Ox 92% on 1 lpm NC; jl7 14:30 BP 128 / 97; Pulse 125; Resp 15; Pulse Ox 89% on R/A; jl7 15:59 BP 107 / 65; Pulse 117; Resp 17; Pulse Ox 100% ; jl7 ED Course: 11:04 Patient arrived in ED. mr 11:04 Jarad Ruano MD is Private Physician. mr 11:29 [facility] Bates [facility] pm1 11:29 Osvaldo Hartley MD is Attending Physician. pm1 11:32 Salud Rae, LINCOLN is Primary Nurse. jl7 11:44 Triage completed. jl7 11:47 Arm band placed on right wrist. jl7 12:00 Patient has correct armband on for positive identification. Placed in gown. Bed in low jl7 position. Call light in reach. Side rails up X 1. Pulse ox on. NIBP on. Warm blanket given. 12:15 Inserted saline lock: 22 gauge in right forearm, using aseptic technique. jl7 12:45 Initial lab(s) drawn, by me, sent to lab. by venipuncture 23G right wrist. dh3 14:00 CT Abd/Pelvis - PO and IV Contrast In Process Unspecified. EDMS 16:25 No provider procedures requiring assistance completed. IV discontinued, intact, jl7 bleeding controlled, No redness/swelling at site. Pressure dressing applied. Administered Medications: 12:15 Drug: morphine 4 mg Route: IVP; Site: right forearm; jl7 12:45 Follow up: Response: No adverse reaction; Pain is unchanged, physician notified jl7 12:15 Drug: Zofran (Ondansetron) 4 mg Route: IVP; Site: right forearm; jl7 12:30 Follow up: Response: No adverse reaction; Nausea is decreased jl7 13:15 Drug: fentaNYL (PF) 50 mcg Route: IVP; Site: right forearm; jl7 13:30 Follow up: Response: No adverse reaction; Pain is decreased jl7 14:50 Drug: NS 0.9% 1000 ml Route: IV; Rate: 1000 ml; Site: right forearm; jl7 16:00 Follow up: Response: No adverse reaction; IV Status: Completed infusion; IV Intake: jl7 1000ml 14:50 Drug: fentaNYL (PF) 50 mcg Route: IVP; Site: right forearm; jl7 15:15 Follow up: Response: No adverse reaction; Pain is decreased jl7 16:15 Drug: [place] 10 mg-325 mg 1 tabs Route: PO; jl7 16:22 Follow up: Response: Medication administered at discharge. jl7 Intake: 16:00 IV: 1000ml; Total: 1000ml. jl7 Outcome: 15:58 Discharge ordered by . pm1 16:25 Discharged to home ambulatory. jl7 16:25 Condition: stable 16:25 Discharge instructions given to patient, family, Instructed on discharge instructions, follow up and referral plans. medication usage, Demonstrated understanding of instructions, follow-up care, medications, Prescriptions given X 2. 16:25 Patient left the ED. jl7 Signatures: Dispatcher [employer] Elif Boo mr BatesAjit, INTEGRITY SPECIALIST INTEGRITY SPECIALIST pm1 Salud Rae RN RN jl7 Le Caruso 3
--- NOTE | 2020-03-29 15:59 | EDPHYS ---
Physician Documentation [facility] Name: Susana Jaffe Age: 70 yrs Sex: Female : 1950 Arrival Date: 03/29/2020 Time: 11:04 Bed 20 Private MD: Jarad Ruano ED Physician Osvaldo Hartley HPI: 03/29 16:39 This 70 yrs old Female presents to ER via Ambulatory with complaints of pm1 Constipation. 16:39 The patient presents with abdominal pain in the left lower quadrant. Onset: The pm1 symptoms/episode began/occurred 2 week(s) ago. Associated signs and symptoms: Pertinent positives: nausea and vomiting, constipation, Pertinent negatives: chest pain, fever, shortness of breath. The symptoms are described as crampy, bloated. Modifying factors: The symptoms are alleviated by nothing, the symptoms are aggravated by nothing. Severity of pain: in the emergency department the pain is actually worse. The patient has experienced a previous episode, many years ago, feels similar to when she had colon rupture. The patient has not recently seen a physician. Historical: - Allergies: 11:47 No Known Allergies; jl7 - Home Meds: 11:47 aspirin 81 mg Oral TbEC 1 tab once daily [Active]; levothyroxine 25 mcg tab 1 tab once jl7 daily [Active]; lisinopril-hydrochlorothiazide 20-12.5 mg Oral tab 1 tab once daily [Active]; simvastatin 40 mg Oral tab 1 tab once daily [Active]; fenofibrate Oral [Active]; - PMHx: 11:47 Cancer, Breast; Hyperlipidemia; Hypertension; Hypothyroidism; ruptured colon; jl7 - PSHx: 11:47 Tonsillectomy; Hysterectomy; Thyroidectomy; Appendectomy; Cholecystectomy; colon jl7 resection; Mastectomy Left; Right shoulder; back - NO MRI; - Immunization history:: Adult Immunizations not up to date. - Social history:: Smoking status: Patient reports the use of cigarette tobacco products, smokes one-half pack cigarettes per day. ROS: 16:39 Constitutional: Negative for fever, chills, and weight loss, Cardiovascular: Negative pm1 for chest pain, palpitations, and edema, Respiratory: Negative for shortness of breath, cough, wheezing, and pleuritic chest pain. 16:39 Back: Negative for injury and pain, MS/Extremity: Negative for injury and deformity, Skin: Negative for injury, rash, and discoloration, Neuro: Negative for headache, weakness, numbness, tingling, and seizure. 16:39 Abdomen/GI: Positive for abdominal pain, nausea and vomiting, constipation. Exam: 16:39 Constitutional: This is a well developed, well nourished patient who is awake, alert, pm1 and in no acute distress. Head/Face: Normocephalic, atraumatic. Chest/axilla: Normal chest wall appearance and motion. Nontender with no deformity. No lesions are appreciated. Cardiovascular: Regular rate and rhythm with a normal S1 and S2. No gallops, murmurs, or rubs. Normal PMI, no JVD. No pulse deficits. Respiratory: Lungs have equal breath sounds bilaterally, clear to auscultation and percussion. No rales, rhonchi or wheezes noted. No increased work of breathing, no retractions or nasal flaring. 16:39 Back: No spinal tenderness. No costovertebral tenderness. Full range of motion. Skin: Warm, dry with normal turgor. Normal color with no rashes, no lesions, and no evidence of cellulitis. MS/ Extremity: Pulses equal, no cyanosis. Neurovascular intact. Full, normal range of motion. 16:39 Abdomen/GI: Inspection: obese Palpation: soft, in all quadrants, mild abdominal tenderness, in the left lower quadrant. 16:39 Neuro: Exam negative for acute changes, Orientation: is normal, Mentation: is normal, Motor: is normal, moves all fours. Vital Signs: 11:42 BP 155 / 75; Pulse 94; Resp 19; Temp 97.8; Pulse Ox 94% ; Pain 4/10; jl7 12:30 BP 112 / 89; Pulse 126; Resp 19 S; Pulse Ox 89% on R/A; jl7 13:30 BP 101 / 75; Pulse 120; Resp 17; Pulse Ox 92% on 1 lpm NC; jl7 14:30 BP 128 / 97; Pulse 125; Resp 15; Pulse Ox 89% on R/A; jl7 15:59 BP 107 / 65; Pulse 117; Resp 17; Pulse Ox 100% ; jl7 MDM: 11:39 Patient medically screened. pm1 14:48 Data reviewed: vital signs. pm1 15:57 Counseling: I had a detailed discussion with the patient and/or guardian regarding: the pm1 historical points, exam findings, and any diagnostic results supporting the discharge/admit diagnosis, lab results, radiology results, the need for outpatient follow up, to return to the emergency department if symptoms worsen or persist or if there are any questions or concerns that arise at home. 03/29 11:39 Order name: Basic Metabolic Panel; Complete Time: 13:24 pm1 03/29 11:39 Order name: CBC with Diff; Complete Time: 13:04 pm1 03/29 11:39 Order name: Hepatic Function; Complete Time: 13:24 pm1 03/29 11:39 Order name: Lipase; Complete Time: 13:24 pm1 03/29 11:39 Order name: CT Abd/Pelvis - PO and IV Contrast; Complete Time: 14:18 pm1 03/29 11:39 Order name: IV Saline Lock; Complete Time: 12:32 pm1 03/29 11:39 Order name: Labs collected and sent; Complete Time: 12:51 pm1 Administered Medications: 12:15 Drug: morphine 4 mg Route: IVP; Site: right forearm; jl7 12:45 Follow up: Response: No adverse reaction; Pain is unchanged, physician notified jl7 12:15 Drug: Zofran (Ondansetron) 4 mg Route: IVP; Site: right forearm; jl7 12:30 Follow up: Response: No adverse reaction; Nausea is decreased jl7 13:15 Drug: fentaNYL (PF) 50 mcg Route: IVP; Site: right forearm; jl7 13:30 Follow up: Response: No adverse reaction; Pain is decreased jl7 14:50 Drug: NS 0.9% 1000 ml Route: IV; Rate: 1000 ml; Site: right forearm; jl7 16:00 Follow up: Response: No adverse reaction; IV Status: Completed infusion; IV Intake: jl7 1000ml 14:50 Drug: fentaNYL (PF) 50 mcg Route: IVP; Site: right forearm; jl7 15:15 Follow up: Response: No adverse reaction; Pain is decreased jl7 16:15 Drug: Guin 10 mg-325 mg 1 tabs Route: PO; jl7 16:22 Follow up: Response: Medication administered at discharge. jl7 Disposition: 17:48 Co-signature as Attending Physician, Osvaldo Hartley MD. rn Disposition: 03/29/20 15:58 Discharged to Home. Impression: Unspecified abdominal pain. - Condition is Stable. - Discharge Instructions: Abdominal Pain, Adult. - Prescriptions for Tylenol- Codeine #3 300-30 mg Oral Tablet - take 2 tablets by ORAL route every 6 hours As needed; 20 tablet. Zofran 4 mg Oral Tablet - take 1 tablet by ORAL route every 12 hours As needed; 20 tablet. - Medication Reconciliation Form, Thank You Letter, Antibiotic Education, Prescription Opioid Use form. - Follow up: Emergency Department; When: As needed; Reason: Worsening of condition. Follow up: Private Physician; When: 2 - 3 days; Reason: Recheck today's complaints, Continuance of care, Re-evaluation by your physician. - Problem is new. - Symptoms have improved. Signatures: Dispatcher [employer] EDMS Osvaldo Hartley MD MD rn Ajit Bates, CLOCK MAKER CLOCK MAKER pm1 Salud Rae RN RN jl7 Corrections: (The following items were deleted from the chart) 16:25 15:58 03/29/2020 15:58 Discharged to Home. Impression: Unspecified abdominal pain. jl7 Condition is Stable. Forms are Medication Reconciliation Form, Thank You Letter, Antibiotic Education, Prescription Opioid Use. Follow up: Emergency Department; When: As needed; Reason: Worsening of condition. Follow up: Private Physician; When: 2 - 3 days; Reason: Recheck today's complaints, Continuance of care, Re-evaluation by your physician. Problem is new. Symptoms have improved. pm1
[2020-03-29] MEDS ORDERED: HYDROCODONE/APAP 10/325 TAB ONE (16:17)
[2020-03-29 16:39] VITALS: TEMP 97.8
[2020-03-29 16:45] VITALS: BP 107/65; O2SAT 100
== END 2020-03-29 16:25 | disposition home or self-care (01) ==
LOC: ER 11:00
DX: R10.9 Unspecified abdominal pain (principal); E03.9 Hypothyroidism, unspecified; I10 Essential (primary) hypertension; E78.5 Hyperlipidemia, unspecified; Z85.3 Personal history of malignant neoplasm of breast; F17.210 Nicotine dependence, cigarettes, uncomplicated
CPT/HCPCS: 96361; 85025; 80048; 36415; 80076; 83690; 74177; 96375; 96374; 99284; Q9967; J3010; J7030; J2405

== ENCOUNTER 2020-07-06 06:09 | Day surgery (SDC) | payer OTHER ==
[2020-06-30 14:50] LABS: Potassium 3.9 mmol/L (3.5-5.1)
[2020-06-30 14:55] LABS: Hematocrit 40.3 % (36.0-45.0); Lymphocytes % 29.9 % (15.3-44.8); MPV 9.1 fL (7.6-11.3); RBC Red Blood Cell Count 4.32 M/uL (3.86-4.86)
--- NOTE | 2020-06-30 17:18 | RAD REPORT ---
EXAM DESCRIPTION: Felicia Guzman And Nelly (2 Views)06/30/2020 4:29 pm CLINICAL HISTORY: Preop for cardiac catheterization. Breast cancer COMPARISON: 2010 FINDINGS: Lungs are hyperaerated. The lungs appear clear of acute infiltrate. The heart is normal size IMPRESSION: No acute abnormalities displayed
--- OUTSIDE RECORDS SUMMARY | 2020-07-06 06:13 | XMS REPORT | Clinical Summary ---
:1950 Author Organization [facility] Address [address] [place] [address] Care Team Providers Name Role Phone MD [...] th e risks, benefits, and possible complications. Surgical History Surgery Date Site/Laterality Comments TONSILLECTOMY 07/09/1955 - 07/08/1956 HYSTERECTOMY 07/09/1977 - 07/08/1978 APPENDECTOMY 07/09/1999 - 07/08/2000 ROTATOR CUFF REPAIR 07/09/2000 - Right 07/08/2001 MASTECTOMY 07/09/2004 - Left 07/08/2005 KNEE SURGERY 07/09/2014 - Left meniscus repair 07/08/2015 TOTAL KNEE ARTHROPLASTY 02/11/2016 Left THYROID SURGERY BREAST SURGERY Left MASTECTOMY COLON SURGERY 07/09/2008 - colon rupture, c olon 07/08/2009 reversal JOINT REPLACEMENT CHOLECYSTECTOMY FUSION, ANT AND POST 08/01/2017 Spine Lumbar/Anterior Proce dure: LUMBAR SPINAL COLUMN, LUMBAR, ANTERIOR DECOMPRESSION ANTERIOR AND POSTERIOR L3-4, L4- 5, LUMBAR APPROACHES, W LUMBAR ANTERIOR FU EVE WITH LAMINECTOMY INSTRUMENTATION L3-4, L4-5,LUMBAR POST ERIOR L3-4,L4-5 DECOMP RESSION AND FUSION WITH INSTRUMENTATION AND RIGHT SIDED L3-4 LAMINOTOMY ROSALIO INOTOMY, LEFT SIDED L4-5 LAMINOTOMY ROSALIO INOTOMY , WITH NEURO MON ITORING, ALLOGRAFT, BILAT ERAL ILIAC CREST BONE GRAFT, ; Surgeon: Teto Jj MD; Location: [facility] Medical devices from this surgery are in the Implants section . SPINE SURGERY L3-4 and L4-5 fu eve-Dr. Allen-2017 Medical History Medical History Date Comments Cancer (HCC) breast Hypertension Disease of thyroid gland Hyperlipidemia Hay fever Coughing Heat intolerance Hypothyroidism Migraine Claustrophobia Wears glasses READING Exercise tolerance finding UNABLE TO EXE RCISE DUE TO BACK PAIN Family History Medical History Relation Name Comments [...] Health Maintenance Due Date Last Done Comments COVID-19 VACCINE (#1) 1965 BREAST CANCER SCREENING 1999 COLONOSCOPY SCREENING 1999 SHINGLES VACCINES (#1) 1999 65+ PNEUMOCOCCAL VACCINE (1 of - PPSV23) 2014 INFLUENZA VACCINE 02/07/2020 Implants Implanted Type Area Dispensing And Measuring Optician Device Shelf Model / Serial Identifier Expiration / Lot Date Hemostat Absrbl Biosurgery 4x4in Ltxf Surgicel - [id number] C ardiovascula Anterio ETHICON - 01/06/2020 1963 / Implanted: Qty: 1 on 08/01/2017 by Teto Salas MD at [facility] r Implants r: / Spine [id number] Lumbar Chip Canc Allograft Leader [facility] 15cc 0.1-4mm - [id number] Human Tissue Anterio MUSCULOSKELETAL 10/26/2019 [id number] / Implanted: Qty: 1 on 08/01/2017 by Teto Salas MD at [facility] Implants r: TRANSPLANT / Spine FOUNDATION [id number] Lumbar Concelltrate 100 10.0cc - [id number] Human Tissue N/A: 12/29/2021 [id number] / Implanted: Qty: 1 on 08/01/2017 by Teto Salas MD at [facility] Implants N/A / Description:ANTERIOR Concelltrate 100 10.0cc - [id number] Human Tissue N/A: N/A 12/29/2021 [id number] / Implanted: Qty: 1 on 08/01/2017 by Teto Salas MD at [facility] Implants / Chip Canc Allograft Leader [facility] 15cc 0.1-4mm - [id number] Hu man Tissue Posterior: MUSCULOSKELETAL 12/30/2019 [id number] / Implanted: Qty: 1 on 08/01/2017 by Teto Salas MD at [facility] Implants Spine TRANSPLANT / Lumbar FOUNDATION [id number] Chip Canc Allograft Leader Crs 30cc 0.1-4mm - [id number] Hu man Tissue Posterior: MUSCULOSKELETAL 05/04/2020 [id number] / Implanted: Qty: 1 on 08/01/2017 by Teto Salas MD at [facility] Implants Spine TRANSPLANT / Lumbar FOUNDATION [id number] Concelltrate 100 10.0cc - [id number] Human Tissue N/A: N/A 12/29/2021 [id number] / Implanted: Qty: 1 on 08/01/2017 by Teto Salas MD at [facility] Implants / Description:posterior Concelltrate 100 10.0cc - [id number] Human Tissue Implants N/A: N/A 12/29/2021 [id number] / Implanted: Qty: 1 on 08/01/2017 by Teto Salas MD at [facility] / Concelltrate 100 10.0cc - [id number] Human Tissue Implants N/A: N/A 12/29/2021 [id number] / Implanted: Qty: 1 on 08/01/2017 by Teto Salas MD at [facility] / Description:posterior Melecio-A Median Alif Cage 10, 30x39 H 12mm - [id number] IPM IMPLANT Anterior: Spine LDR SPINE 07/09/2020 [id number] / Implanted: Qty: 1 on 08/01/2017 by Teto Salas MD at [facility] DEVICES Lumbar / [id number] Description:ANTERIOR Melecio-A Median Alif Cage 10, 30x39 H 12mm - [id number] [id number] IMPLANT Anterior: Spine LDR SPINE 09/06/2018 [id number] / Implanted: Qty: 1 on 08/01/2017 by Teto Salas MD at [facility] DEVICES Lumbar / [id number] Description:ANTERIOR Melecio-A Plate +0.5mm Thick Medium - [id number] IPM IMPLANT Anterior: LD R SPINE 04/08/2021 [id number] / Implanted: Qty: 1 on 08/01/2017 by Teto Salas MD at [facility] DEVICES Spine Lumbar / [id number] Melecio-A Plate +0.5mm Thick Medium - [id number] IMPLANT Anterior: LD R SPINE 08/09/2021 [id number] / Implanted: Qty: 1 on 08/01/2017 by Teto Salas MD at [facility] DEVICES Spine Lumbar / [id number] Arrow Two-Lumen Central Venous Catheteri zation Kit With Blue Flextip, Arrowgard Blue Plus Catheter, Sharps Safety Features, And Maximal Barrier Precautions Kit, Venous Right: ARROW 10/06/2018 [id number] / Implanted: Qty: 1 on 08/01/2017 by Nathan Vee MD at [facility] Access [employer] A DIV OF [id number] TELEFLEX Description:RIGHT CVC Henri Lmbr Thorc Nicole 3 - [id number] Spinal Implants Posterior: Spine JOANN SPINE [id number] / Implanted: Qty: 6 on 08/01/2017 by Teto Salas MD at [facility] Lumbar / VENDOR LOT NA Screw Spinal Plyaxl 6.5x40mm Nicole Iii - [id number] Spinal Impl ants Posterior: Spine JOANN SPINE [id number] / Implanted: Qty: 2 on 08/01/2017 by Teto Salas MD at [facility] Lumbar / VENDOR LOT NA Screw Plyaxl Lmbr Thor 5.5x40mm Ns Nicole 3 - [id number] Spinal Implants Posterior: Spine JOANN SPINE [id number] / Implanted: Qty: 3 on 08/01/2017 by Teto Salas MD at [facility] Lumbar / VENDOR LOT NA Screw Spinal Plyaxl 5.5x35mm Nicole Iii - [id number] Spinal Impl ants Posterior: Spine JOANN SPINE [id number] / Implanted: Qty: 1 on 08/01/2017 by Teto Salas MD at [facility] Lumbar / VENDOR LOT NA Kong Spinal Rads 6x70mm Nicole Iii - [id number] Spinal Implants Poste rior: Spine JOANN SPINE [id number] / Implanted: Qty: 2 on 08/01/2017 by Teto Salas MD at [facility] Lumbar / VENDOR LOT NA Results Not on fileafter 07/06/2019 Insurance Payer Benefit Plan / Subscriber ID Effective Dates Phone Addre ss Type Group MEDICARE MEDICARE PART A [id number] 2014-Present [place], [place] Medicare AND B AETNA AETNA PPO OPEN [id number] 2000-Present PPO CHOICE Advance Directives For more information, please contact: [phone] Type Date Recorded Patient Networking Specialist Explanati on Advance Directives, 02/02/2016 7:54 AM Living Will and Medical Power of Plastics Worker Advance Directives, 07/16/2017 12:34 PM Living Will and Medical Power of Plastics Worker Code Status Date Activated Date Inactivated Comments Full Code 08/01/2017 6:45 PM 08/04/2017 2:42 PM Code Status decision reached by: Patient
--- OUTSIDE RECORDS SUMMARY | 2020-07-06 06:13 | XMS REPORT | Continuity of Care Document ---
:1950 Author Organization [facility] t Address 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, sthesis, 124 Method i lumbar lumbar 00:00: st region region 00 Lumbar Lumbar Disease Active [place] stenosis stenosis 08-01 Method i 00:00: st 00 Left knee Left knee Disease Active Overview: [place] pain pain 5-25 Lateral, Methodi 00:00: medial, [...] Type Date Date Clinician Iodine Propensi Active [place] And ty to 7-06 Methodi Iodide adverse 00:00: st Containi reaction 00 ng s to Products drug Other Propensi Active "Seafood" [place] on ty to 01-11 "Cats" Methodi adverse 00:00: st reaction 00 s Iodine Adverse Active Info Not [facility] Reaction Available [facility] Cat Hair Adverse Active Info Not [facility] t Extract Reaction Available [facility] Family History Family Member Diagnosis Comments Start Date Stop Date Source Natural father Cancer [place] [facility] Natural mother Heart disease [place] [facility] Natural mother Hypertension [place] [facility] Social History Social Habit Start Date Stop Date Quantity Comments Source History of tobacco Cigarette Smoker [place] use [facility] Sex Assigned At [place] [facility] Cigarettes smoked 2017-10-02 2017-10-02 [place] current (pack per 00:00:00 00:00:[address] day) - Reported Cigarette 2017-10-02 2017-10-02 [place] pack-years 00:00:00 00:00:00 Mormon Tobacco use and 2017-10-02 2017-10-02 Never used [place] exposure 00:00:00 00:00:00 Mormon Alcohol intake 2017-10-02 2017-10-02 Current [place] 00:00:00 00:00:00 non-drinker of Mormon alcohol (finding) Smoking Status Start Date Stop Date Source Current every day smoker 2017-10-02 00:00:00 Tyrel santiago Mormon Medications Ordered Filled Start Stop Current Ordering Indication Dosage Frequency Signature Comments Components Source Medication Medication Date Date Medication? Clinician (SIG) Name Name Tylenol # 3 Tylenol # 3 Yes Migel one tab [facility] 03-04 Donald Eaton - 00:00: [facility] aspirin Yes 81mg QD Take 81 mg [place] (ECOTRIN) 08-04 by mouth Method i 81 MG 10:42: daily. st enteric 15 coated tablet lisinopril- Yes 1{tbl} QD Take 1 [place] hydrochloro -27 tablet by Met hodi thiazide 10:42: mouth [...] 81 Yes Migel not C [facility] defined [facility] [...] Planned Date Details Comments Source Future Scheduled 2020-02-07 [facility] Test 00:00:00 [code = INFLUENZA VACCINE] Future Scheduled 2014 65+ PNEUMOCOCCAL [place] [facility] Test 00:00:00 VACCINE (1 of 1 - PPSV23) [code = 65+ PNEUMOCOCCAL VACCINE (1 of 1 - PPSV23)] Future Scheduled 1999 BREAST CANCER [facility] thodist Test 00:00:00 SCREENING [code = BREAST CANCER SCREENING] Future Scheduled 1999 COLONOSCOPY SCREENING [facility] Mormon Test 00:00:00 [code = COLONOSCOPY SCREENING] Future Scheduled 1999 [facility]LES [facility]INES (#[facility] Test 00:00:00 [code = SHINGLES VACCINES (#1)] Future Scheduled 1965 COVID-19 VACCINE (#1) [facility] Mormon Test 00:00:00 [code = COVID-19 VACCINE (#1)] Encounters Start End Encounter Admission Attending Care Care Encounter Source Date/Time Date/Time Type Type Clinicians Facility Department ID 2018-04-01 2018-04-01 Outpatient Soledad Hicks [id number] 14:[facility]00 [facility] Clin[facility] 2018-03-04 2018-03-04 Outpatient Soledad Hicks [id number] 11:00:00 11:00[facility] Clin[facility] Results This patient has no known results.
[2020-07-06] MEDS ORDERED: NA CHLORIDE 0.9% 500 ML ONE (07:02)
[2020-07-06] MEDS ORDERED: HEPA 1000U/500MLS 1,000 UNIT/500 ML BAG IV ONE ×2 (07:09→08:14)
[2020-07-06] MEDS ORDERED: LIDOCAINE 1% MPF 30 ML VIAL ONE (07:09)
[2020-07-06] MEDS ORDERED: MIDAZOLAM HCL 2 MG/2 ML INJ ONE ×3 (07:50→08:08)
[2020-07-06] MEDS ORDERED: METHYLPREDNISOLONE 125 MG INJ ONE (07:51)
[2020-07-06] MEDS ORDERED: FENTANYL CITR 100 MCG/2 ML ONE (07:51)
[2020-07-06 09:31] VITALS: O2SAT 94
[2020-07-06 09:58] VITALS: BP 150/94; TEMP 97.2
--- NOTE | 2020-07-06 12:28 | OP ---
Date of Procedure: 07/06/2020 Surgeon: Joel Shaver MD Procedure: Bilateral selective carotid angiogram. Indication: Cerebrovascular disease and abnormal carotid Doppler. Ms. Jaffe is a 70-year-old woman, has multiple cardiac risk factors, abnormal carotid Dopplers, with w orsening stenosis of the left internal carotid artery. She has a completely occluded right common ca rotid which is chronic and old. Procedure In Detail: She was brought to the laborer heading today as an outpatient, prepped and draped in t he routine sterile fashion. Given Versed for sedation. Using the Seldinger technique and using 10 c c the xylocaine, we put a 6-Lebanese sheath in the right groin without any complication. A JR4 cathete r was used to select the right common carotid, which was completely occluded by angiography. I attem pted to select the left common carotid with a JR4, but that was unsuccessful. A 3DRC catheter was us ed to cannulate the left carotid. Angiography did show normal common carotid, normal external caroti d, but there was a 90% ulcerated plaque and stenosis in the ostium of the left ICA. Complications: There were no complications. Blood Loss: 5 cc. The patient tolerated the procedure well. Anesthesia: Total conscious sedation was 45 minutes. Final Diagnosis: Severe carotid artery disease, 100% right common carotid, 90% left internal carotid . Plan: For carotid endarterectomy on the left. The patient was given SCD. I will do a stress test o n her for cardiac clearance prior to her surgery. She will go home today in 2 hours. Angio-Seal was used to close the case. The case wa s discussed with the . CHAR/MARK Voice ID: [id number] Report ID: [id number]
== END 2020-07-06 10:15 | disposition home or self-care (01) ==
LOC: CCL 06:09
DX: I65.23 Occlusion and stenosis of bilateral carotid arteries (principal); I48.0 Paroxysmal atrial fibrillation; I10 Essential (primary) hypertension; E78.2 Mixed hyperlipidemia; F17.210 Nicotine dependence, cigarettes, uncomplicated; Z20.828 Contact with and (suspected) exposure to other viral communicable diseases; Z82.49 Family history of ischemic heart disease and other diseases of the circulatory system
CPT/HCPCS: 93005; 85025; 80048; 36415; 85610; 85730; 71046; 36222; U0002; C1893; J2250 ×2; J3010; J7040; J1644 ×2; J2930

== ENCOUNTER 2020-09-20 12:50 | Observation (INO) | payer OTHER ==
--- OUTSIDE RECORDS SUMMARY | 2020-09-20 12:56 | XMS REPORT | Continuity of Care Document ---
:1950 Author Organization [facility] t Address [address] [place] [address] Care Team Providers Name Role Phone Edis Ferrer MD Attending Clinician EDIS FERRER Attending Clinician Unavailable Prince SNIDER Attending Clinician Hitesh Novak MD Attending Clinician Unavailable Moy Nowak MD Attending Clinician Gary Mason MD Attending Clinician Bonnie Arellano MD Attending Clinician Unavailable Alexandria STARK Attending Clinician Unavailable EDIS FERRER Admitting Clinician Unavailable Payers Payer Name Policy Type Policy Number Effective Date Expiration Date Moy aaron AETNA - MEDICARE [id number] [facility] MGD CAREAETNA 00:00:00 - Medical MEDICARE HMO POS Center [id number] [address] Problems Condition Condition Condition Status Onset Resolution Last Treating Co mments Source Name Details Category Date Date Treatment Clinician Date s/p L CEA s/p L CEA Disease Active [facility] by by 07-19 Uma - Carissa - Carissa - 00:00: Medi danny 07/22/20 07/22/20 00 Center 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:00: Medical occlusion occlusion 00 Cent er Smoker Smoker Disease Active [facility] 1-05 [facility] - 00[facility] Medical 00 Center Paroxysmal Paroxysmal Disease Active 2021-[address] atrial atrial 07-13 [facility] - fibrillati fibrillati 00:00: Me dical on on [place] Essential Essential Disease Active [facility] hypertensi hypertensi 07-13 Lionel kes - on on 00:00: Medical 00 [place] Dyslipidem Dyslipidem Disease Active [facility] ia ia 07-13 [facility] - 00:[facility]: Medical 00 Center Closed Closed Problem Active [facility] displaced [...] ents Source Name Type Date Date Clinician Regina Altman Active Anaphylaxis Throat [facility] h ty to 07-14 swelling [facility] - Containi adverse 00:00: Medical ng reaction 00 [place] Products s Allergen Drug Active Other (See [facility] ic Allergy Comments) 04-01 [facility] - Extracts 00:00: Medical 00 [place] Iodine Drug Active Anaphylaxis Throat [facility] And Allergy 01-11 swelling [facility] - Iodide 00:00: Medical Containi 00 [place] ng Products Other Propensi Active "Seafood" [facility] t ty to 01-11 "Cats" [facility] - adverse 00:00: Medical reaction 00 Center s Iodine Adverse Active Info Not [facility] Reaction Available [facility] Cat Hair Adverse Active Info Not [facility] t Extract Reaction Available [facility] Family History Family Member Diagnosis Comments Start Date Stop Date Source Natural brother Heart disease [facility] Natural father Cancer [facility] Natural mother Heart disease [facility] Social History Social Habit Start Date Stop Date Quantity Comments Source History SDOH [facility] - Alcohol Std Drinks Medica l Center History SDOH [facility] - Alcohol Binge Medical Krystian ter Sex Assigned At [facility] Lionel deyanira [facility] Cigarettes smoked 2020-08-05 2020-08-05 HEIDY Pereira - current (pack per 00:00:00 00:00:00 [facility] day) - Reported Cigarette 2020-08-05 2020-08-[address] [facility] [address] [place] - pack-years 00:00:00 00:00:00 [facility] Tobacco use and 2020-08-05 2020-08-05 Never used [facility] St Lionel mcmillan - exposure 00:00:00 00:00:00 [facility] Alcohol intake 2020-08-05 2020-08-05 Lifetime [facility] Storey es - 00:00:00 00:00:00 non-drinker Medical Cente r (finding) History SDOH 2020-07-13 2020-07-13 [address] [facility] [address] [place] - Alcohol Frequency 00:00:00 00:00:00 [facility] Smoking Status Start Date Stop Date Source Current every day smoker 2020-08-05 00:00:00 [facility] Medications Ordered Filled Start Stop Current Ordering Indication Dosage Frequency Signature Comments Components Source Medication Medication Date Date Medication? Clinician (SIG) Name Name lisinopril- Yes 1{tbl} QD Take [address] hydroCHLORO -28 tablet by Cordelia es - thiazide 12:33: mouth Medical (PRINZIDE,Z 40 daily. [place] ESTORETIC) 20-12.5 mg per tablet ascorbic Yes 500mg QD Take [address] acid, 1-28 mg by [facility] - vitamin C, 12:32: mouth Medica l (ascorbic 02 daily. [place] acid with gael hips) 500 MG tablet multivitami Yes 1{tbl} QD Take [address] n per -28 tablet by [facility] - tablet 12:30: mouth Medical 35 daily. [place] aspirin 81 Yes 81mg QD Take [address] MG EC 08-05 by mouth [facility] - tablet 12:30: daily. Medical 35 [place] clopidogreL Yes 75mg QD Take [address] (PLAVIX) 75 08-05 by mouth Luke s - mg tablet 12:30: daily. Medica l 35 [place] atorvastati 2021- Yes 20mg QD Take [address] n (LIPITOR) 07-2416 tablet (20 L ukes - 20 MG 00:00: 23:59 mg total) Medica l tablet 00 :00 by mouth Center daily. simvastatin 2020- No 40mg QD Take [address] (ZOCOR) 40 07-23 by mouth Luke s - MG tablet 11:48: 00:00 daily. Medic al 29 :00 Center metoprolol 2021- Yes 12.5mg Q.5D Take 0.[address] tartrate 07-23 tablets [facility]ukes - (LOPRESSOR) 00:00: 23:59 (12.5 mg M edical 25 MG 00 :00 total) by Center tablet mouth 2 (two) times daily. furosemide 2021- Yes 20mg QD Take [address] (LASIX) 20 07-23 tablet (20 Lionel kes - MG tablet 00:00: 23:59 mg total) Me dical 00 :00 by mouth Center daily. potassium 2021- Yes 10meq QD Take [address] chloride 07-23 tablet (10 Luke s - (KLOR-CON) 00:00: 23:59 mEq total) Medical 10 MEQ CR 00 :00 by mouth Center tablet daily. traMADoL 2020- No 50mg Take [address] (ULTRAM) 50 07-23 tablet (50 L ukes - mg tablet 00:00: 23:59 mg total) Me dical 00 :00 by mouth Center every 6 (six) hours as needed for up to 10 days. Max Daily Amount: 200 mg chlorhexidi 2020- No 118mL [facility] ne 07-16 [facility] - (HIBICLENS) 08:37: 09:08 Medic al external 20 :29 Center liquid 4% metoprolol 2019-07- No 25mg Q.5D Take [address] tartrate 07-25 by mouth 2 Luke s - (LOPRESSOR) 00:00: 00:00 (two) Medi danny 25 MG 00 :00 times Center tablet daily. levothyroxi 2019-07 Yes 25ug QD Take [address] ne 1-04 mcg by [facility]ukes - (SYNTHROID, 00:00: mouth Medic al LEVOTHROID) 00 daily. [place] 25 MCG tablet fenofibrate 2019-07 Yes 145mg QD Take [address] (TRICOR) 0-15 mg by [facility] - 145 MG 00:00: mouth Medical tablet 00 daily. [place] omeprazole 2019-07 No 40mg QD Take [address] (PriLOSEC) 0-09 -08 by mouth Luke s - 40 MG 00:00: 00:00 daily. Medical capsule 00 :00 [place] Tylenol # 3 Tylenol # 3 Yes Migel one tab [facility] 8-27 Bennett [facility] - 00:00: [facility] Aspirin 81 Aspirin 81 Yes Migel not [facility] Bennett defined [facility] Lisinopril- Lisinopril- Yes Migel not [facility] Hydrochloro Hydrochloro Donald defined Lukes - thiazide thiazide [facility] Simvastatin Simvastatin Yes Migel not [facility] Bennett defined [facility] Fenofibrate Fenofibrate Yes Migel not [facility] Bennett defined [facility] Levothyroxi Levothyroxi Yes Migel not [facility] ne Sodium ne Sodium Donald defined [facility] Acetaminoph Acetaminoph Yes Migel not [facility] en-Codeine en-Codeine Donald defined [facility]ukes - #3 #3 [facility] Multivitami Multivitami Yes Migel not [facility] n Adult n Adult Donald defined Luke s - [facility]ics Vital Signs Vital Name Observation Time Observation Value Comments Source Systolic blood 2020-08-05 12:28:00 124 mm[Hg] [facility] Diastolic blood 2020-08-05 12:28:00 60 mm[Hg] [facility] S [facility] Heart rate 2020-08-05 12:28:00 85 /min [facility] Body temperature 2020-08-05 12:28:00 37 Nallely [facility] Respiratory rate 2020-08-05 12:28:00 18 /min [facility] Body height 2020-08-05 12:28:00 167.6 cm [facility] Body weight 2020-08-05 12:28:00 97.523 kg [facility] BMI 2020-08-05 12:28:00 34.70 kg/m2 [facility] Oxygen saturation in 2020-08-05 12:28:00 96 /min room iar [facility] Arterial blood by Medical Ce nter Pulse oximetry Procedures Procedure Date / Time Performing Clinician Source Performed PREPARE LEUKO-REDUCED RBC 2020-07-23 23:54:00 Sandy Freed [facility] POCT-GLUCOSE METER 2020-07-23 14:31:[address] [facility] BASIC METABOLIC PANEL (7) 2020-07-23 06:02:00 Trish Gallardo [facility] CBC W/PLT COUNT & AUTO 2020-07-23 06:02:00 Paulina [facility] MAGNESIUM 2020-07-23 06:02:00 Jonathan Gallardoscar [facility] PHOSPHORUS 2020-07-23 06:02:00 Paulina [facility] POCT-GLUCOSE METER 2020-07-23 05:04:[address] [facility] ECG 12-LEAD 2020-07-23 01:57:40 Jovan Nunes [facility] XR CHEST 1 VIEW 2020-07-23 00:49:00 Carissa [facility] - PORTABLE/BEDSIDE [facility] POCT-GLUCOSE METER 2020-07-23 00:39:00 Carissa, [facility] POCT-BLOOD GASES, VENOUS 2020-07-23 00:34:00 Carissa, [facility] POCT-SODIUM 2020-07-23 00:34:00 Carissa, [facility] POCT-POTASSIUM 2020-07-23 00:34:00 Carissa, [facility] POCT-HEMOGLOBIN 2020-07-23 00:34:00 Carissa, [facility] POCT-HEMATOCRIT 2020-07-23 00:34:00 Carissa [facility] POCT-CALCIUM IONIZED 2020-07-23 00:34[facility] 2020-07-23 00:34:00 Carissa [facility] TRANSFUSE LEUKO-REDUCED 2020-07-22 20:20:19 Cooper [facility]anner RED BLOOD CELLS [facility] BLOOD GAS, ARTERIAL 2020-07-22 14:58:00 [facility] BASIC METABOLIC PANEL (7) 2020-07-22 14:57:00 Sandy Freed [facility] MAGNESIUM 2020-07-22 14:57:00 Sandy Freed [facility] PHOSPHORUS 2020-07-22 14:57:00 Sandy Freed [facility] LACTIC ACID, ARTERIAL 2020-07-22 14:57:[address] [facility] CBC W/PLT COUNT & AUTO 2020-07-22 14:57:00 Cooper [facility]edBanner DIFFERENTIAL [facility] XR CHEST 1 VIEW 2020-07-22 13:18:[address] [facility] PORTABLE/BEDSIDE [facility] CALCIUM, IONIZED 2020-07-22 11:14:00 [facility] 2020-07-22 11:13:00 Alexander [facility] GLUCOSE-STAT LAB 2020-07-22 11:13:00 [facility] HGB/HCT (H&H) - STAT LAB 2020-07-22 11:13:00 [facility] TISSUE EXAM 2020-07-22 09:13:00 Carissa [facility] ENDARTERECTOMY,CAROTID 2020-07-22 07:29:00 [facility] POCT-GLUCOSE METER 2020-07-22 05:08:00 [facility] BASIC METABOLIC PANEL (7) 2020-07-22 05:00:00 Jonathan Gallardoscar [facility] MAGNESIUM 2020-07-22 05:00:00 [facility] 2020-07-22 05:00:00 [facility] CBC W/PLT COUNT & AUTO 2020-07-22 05:00:00 Mita Nowak [facility] S t [facility] POCT-GLUCOSE METER 2020-07-21 20:53:00 Carissa, [facility] POCT-GLUCOSE METER 2020-07-21 16:28:00 [facility] ECG 12-LEAD 2020-07-21 16:27:56 Unknown, Hl7 [facility] SARS-COV2/RT-PCR ([facility] & 2020-07-21 15:18:00 [facility] - REF LABS) [facility] PROTHROMBIN TIME/INR 2020-07-21 15:18:00 [facility] APTT 2020-07-21 15:18:[address] [facility] R & L CATH (+/- SATS & 2020-07-21 08:41:00 Mita Nowak [facility] S [facility] - CARDIAC OUTPUT) [facility] BASIC METABOLIC PANEL (7) 2020-07-21 03:24:00 AlexanderJonathanscar [facility] MAGNESIUM 2020-07-21 03:24:00 [facility] PHOSPHORUS 2020-07-21 03:24:00 [facility] CBC W/PLT COUNT & AUTO 2020-07-21 03:24:00 Liborio Motley [facility] DIFFERENTIAL [facility] POCT-GLUCOSE METER 2020-07-20 18:21:00 Carissa, [facility] ECG 12-LEAD 2020-07-20 17:37:05 Unknown, Hl7 [facility] POCT-GLUCOSE METER 2020-07-20 11:46:[address] [facility] POCT-GLUCOSE METER 2020-07-20 06:54:[address] [facility] BASIC METABOLIC PANEL (7) 2020-07-20 03:32:00 Trish Gallardo [facility] MAGNESIUM 2020-07-20 03:32:00 Beram [facility] PHOSPHORUS 2020-07-20 03:32:00 Alexander [facility] CBC W/PLT COUNT & AUTO 2020-07-20 03:32:00 Tiesha [facility] POCT-GLUCOSE METER 2020-07-19 23:30:[address] [facility] LACTIC ACID, ARTERIAL 2020-07-19 17:30:00 Tiesha [facility] BLOOD GAS, ARTERIAL 2020-07-19 17:30:00 [facility] E[facility] W/ DOPPLER 2020-07-19 17:18:13 Hayden Lewis [facility] (CW/PW/COLOR) [facility] URINALYSIS W/ REFLEX URINE 2020-07-19 16:38:00 Liborio Motley [facility] COMPREHENSIVE METABOLIC 2020-07-19 15:07:00 Liborio Motley [facility] MAGNESIUM 2020-07-19 15:07:00 [facility] 2020-07-19 15:07:00 Tiesha [facility] PROTHROMBIN TIME/INR 2020-07-19 15:07:00 Tiesha [facility] PT/APTT 2020-07-19 15:07:00 Tiesha [facility] TSH/FREE T4 IF INDICATED 2020-07-19 15:07:00 Tiesha [facility] LACTIC ACID, ARTERIAL 2020-07-19 15:07:00 Tiesha [facility] CORTISOL 2020-07-19 15:07:00 Tiesha [facility] CBC W/PLT COUNT & AUTO 2020-07-19 15:07:00 Tiesha [facility] XR CHEST 1 VIEW 2020-07-19 14:38:00 Lencho [facility] PORTABLE/BEDSIDE Medical Center BLOOD GAS, ARTERIAL 2020-07-19 14:30:00 Lencho [facility] SODIUM NA-STAT LAB 2020-07-19 14:30:00 Lencho [facility] POTASSIUM-STAT LAB 2020-07-19 14:30:00 Vallionelri [facility] CALCIUM, IONIZED 2020-07-19 14:30:00 Vallionelwa [facility] GLUCOSE-STAT LAB 2020-07-19 14:30:00 [facility] (H&H) - STAT LAB 2020-07-19 14:30:00 Paulawa [facility] PLATELET COUNT 2020-07-19 14:30:00 Lencho [facility] COLOR-FLOW MAPPING 2020-07-19 13:17:38 [facility] CONT WAVE PULSED DOPPLER 2020-07-19 13:17:38 [facility] TRANSESOPHAGEAL ECHO 2020-07-19 13:00:53 Alexander [facility] ABORH, MANUAL 2020-07-19 08:49:00 Beckie Motley [facility] VASCULAR DIAGRAM -SCAN 2020-07-19 00:00:00 Provider, Default [facility] CARDIAC CATH REPORT - SCAN 2020-07-19 00:00:00 Provider, Default [facility] TYPE AND SCREEN, AUTOMATED 2020-07-16 09:12:[address] [facility] ECG 12-LEAD 2020-07-16 08:47:40 Vincent Ferrer [facility] SARS-COV2/RT-PCR ([facility] & 2020-07-16 08:39:00 Vincent Ferrer [facility] - REF LABS) [facility] Plan of Care Planned Activity Planned Date Details Comments Source Future Scheduled 2020-07-09 Medicare IPPE (WELCOME [facility] Test 00:00:00 TO MEDICARE) [code = Medical Center Medicare IPPE (WELCOME TO MEDICARE)] Future Scheduled 2020-03-09 INFLUENZA VACCINE (#1) [facility] - Test 00:00:00 [code = INFLUENZA Medical Ce nter VACCINE (#1)] Future Scheduled 2014 PNEUMOCOCCAL 65+ YRS [facility] - Test 00:00:00 (1 of 1 - Medical Center [id number] PCV13) [code = PNEUMOCOCCAL 65+ YRS (1 of 1 - [id number]_Svqchwz PCV13)] Future Scheduled 1999 SHINGLES VACCINES ([address] [facility] - Test 00:00:00 of 2) [code = SHINGLES Medic al Center VACCINES (1 of 2)] Future Scheduled 1968-01-28 DTAP/TDAP/TD VACCINES [facility] - Test 00:00:00 (1 - Tdap) [code = Medical C enter DTAP/TDAP/TD VACCINES (1 - Tdap)] Future Scheduled 1967 HEPATITIS C SCREENING [facility] - Test 00:00:00 [code = HEPATITIS C Medical Center SCREENING] Future Scheduled [address] [facility] - Test 00:00:00 [facility]) [code = 400438817] Future Scheduled [address] [facility] - Test 00:00:00 [facility] colon (procedure) [code = 203671260] Encounters Start End Encounter Admission Attending Care Care Encounter Source Date/Time Date/Time Type Type Clinicians Facility Department ID 2018-04-01 2018-04-01 [facility] [id number] 14:00:00 14:00:00 [facility] 2018-03-04 2018-03-04 [facility] [id number] 11:00:00 11:00:00 [facility] Results Test Description Test Time Test Comments Results Result Sourc e Comments VASCULAR DIAGRAM 2020-08-03 Ordered by an HEIDY S [facility] -SCAN 10:50:52 unspecified - Medical provider. [place] CARDIAC CATH 2020-08-03 Ordered by an HEIDY Barnard kes REPORT - SCAN 10:50:51 unspecified - Medical provider. [place] Tissue Exam 2020-07-30 18:09:00 Test Item Value Reference Range Interpretation Comme nts Case Report (test code = 104) Surgical Pathology Report Case: [id number] Authorizing Provider: Vincent Ferrer MD Collected: 07/22/2020 09:13 AM Ordering Location: [facility] Received: 07/22/2020 10:56 AM PERIOPERATIVE SERVICES Pathologist: Timur Ray MD Specimen: Plaque, left carotid plaque DIAGNOSIS (test code = 3220) t0lnpDYePSMbt3liNCWldCZxPiUiWxYjOnBeOr pc dWMxIHtccnRmMVxlcGljOTIwMFxhbnNpXHNwbHRw Z3DddxnpXPybUD0uTP1xdZdcaOMidZXdQKSrPjDc a0wds056kDQov8ciNVZKaksiyLz4eWkoF05oy4C5 PlwaA03ktZAeGPfcgHUedhazakTsOXWJJNQPIDcq OUGMKGLHJVHYKIrOCANQNrOTEeXAJwPQCG5NPHhc yZRdSKYJYAEAZklHAIYKITLFZ7EAFHEIC7XRXfIZ CVWBUVKzYNJjun65DNH3OmEml0O2HCL4VTNiDKFc o7azSCTviHFbHbLmTdWiVnQxGagprHWrEAEqRhRq w4ywn528tQGdz4rfVVRyZlN0gQLkWICbgUVvL219 XYBySHkjz6ohq2WnKIOdrHJpo7Y4KMZHyrlqlTn8 fOlfG87ac9X5BfroS9mhRUMdRRGpR1OfMI4bQEMc Xhj3NWJ1PZM4VELpYYCmD8SoYA6gCXDlgQGgBHb7 b6bsbIwdXAHjTRM8g7iyIMcgsyWoBA4klp9saBl4 u2pzapPdUXWdZZTspHUFYLPfA9CgmOutBf2mtUt1 rBixHcwlRRW0Val9QA8wrw90icz6fJxgPMZvpzkj DxF7NAfcFLJicnkqLKn1RMooXESipIP9ZNZwuFKv N9FtAGArZS2ybce0TYZ4LSzlKPSsPgV4GVVvnEIz YMBsoNrnVYita187ZGA6FrQtUG0mU0Kly3X8aM2a xUKbOQBtiGVrSsNjSMSztn2zvEYlPWmwj5KqTBS2 fvT3rHNqoRUfSXLaSwG2SOetXH3nyx70OCVzFCK1 qj4yjGWccSogfvEmcGAhRClnC9RwZZHdg680JKTv Y0KnPESuy5H4cqAbKoYuXPTxcIK0iwZ1PXAxJF9f yrgzc8faCIoeWQopIFLbniK4pnF5ZSLomMOzT5Kv pP8lEFQsWA5fpkptq8kxMNJ1VCqmZWGxUMU4VmLg VTHmq0Dphzg8AbVdn7PubWUaMQnjP06bw385GZDn inHuM6yevYBivbxwvZCcaiggMOdjyyX5CAXuYAjk imtqJJBjUUanP7ecMmRuRNHtnQpiGHcci8PoHICa SZSoZiHnpVMxBZNhAyl3NRCaiORkRWBoVrHpH0cg whhaZpZGEZEwr3ogF2apkCHVaSQoL5SmQJakbpTp YZccFWavBRAfAYG8FQ85HigbIBUhma63 CPT Code(s) (test code = 3357) l8gfxIUjWYBsxYM3JfQuJVZox4flw0DtyCUs cGFy SZstjEBujzNesd85yKI3jW60OE5dZUCjBgN0RWCi bmY1Kgc5ZSCjUCKbyRZlU988u8itr2uoarLqkZX7 fZkpUMMgJEAkZQhjLGYaZcOyDBxgPYJ7FUa5TmWr XHBhcn0= CLINICAL HISTORY (test code = 3356) t1jfzYOrBDIroBP8HsTkOSMkb2ehv5U sdHBncGFy VZwebKBrvzEjfp11xQI0lK79LX2zBXWuWrT1ZZHf kfU2Qfn3IPPyNRYifVKsQ201o5asw0xqpqIwvKD3 fVxwYXJkXHBsYWluXGZzMjAgTGVmdCBjYXJvdGlk DHJ7AD6vs4jkPSCoux5= SPECIMEN SOURCE (test code = 3377) x4xtoTPiWCHveOV2UpAsJWVea0lfb9Rp dHBncGFy PBbtxBNgpyKgsp56nVH0fD66HH1xBHFiJpF7MHQt pzP7Yis6PCVmCLLwlOVnS349v3gks8dnvxXmxNJ7 fVxwYXJkXHBsYWluXGZzMjAgUGxhcXVlXHBhcn0= GROSS DESCRIPTION (test code = 3366) l3uoqZEzMTKuyJZkAeUsZINfGZAxm0 lcZGVmbGFu [file] eioaOXPbKAvKLFtAZ1IVGKufAMI3 MICROSCOPIC DESCRIPTION (test code = f2szyMSiZGKvrUZ3ZdTfTSQtm9vjr6 BsdHBncGFy 3371) QIrywTUekfVgiu42uRV9lB24FW4zERWfNpK6HNDb urF6Eao0RHCfATMnzOYpF652f5szf4dticUwkLG6 wLfoWHWcNIFkFGqvWLRjDrTnOFMzHo3dyNRcUWVw cn0= [facility] [id number] 18:09:00Surgical Pathology Report Case: [id number] Authorizing Provider: Vincent Ferrer MD Collected: 07/22/2020 09:13 AM Ordering Location: [facility] Received: 07/22/2020 10:56 AM PERIOPERATIVE SERVICES Pathologist: Timur Ray MD Specimen: Plaque, left carotid plaque ARTERY, LEFT CAROTID, ENDARTERECTOMY:CALCIFIC ATHEROSCLEROTIC PLAQUE Signing Pathologist Direct Phone Line: [phone] signed by Timur Ray MD on 07/30/2020 at 6:09 [id number]; [id number] carotid stenosisPlaqueReceived in formalin labeled the patient's name, accession number and "left carotid plaque" is a 3.5 cm in length by 0.5 cm in diameter dillon-yellow tubular piece of focally calcified plaque. Fur Pointer sections are submitted in A1 following decalcification.ISABELLA Holguin, HT (ASC P)PerformedPrepare Leuko-Red [id number] 23:54:00 Test Item Value Reference Range Interpretation Comments CROSSMATCH (test code = 2264) COMPATIBLE Unit ABO (test code = O Pos 4858435) UNIT NUMBER (test code = [id number] 934-0) Status (test code = 4548273) [place]_TIMEINCHART Blood Bank Product (test code RED BLOOD CELLS = 2263) PRODUCT CODE (test code = P9011J06 933-2) [facility] [id number] 17:54:17Interface, External Ris In - 07/23/2020 5:54 PM CSTVentricular Rate 107 BPMAtrial Rate 107 BPMP-R Interval 146 msQRS Duration 86 msQ-T Interval 328 msQTC Calculation(Bazett) 437 msP [place] 66 degreesR [place] 23 degreesT [place] 34 degreesSinus tachycardiaOtherwise normal ECGWhen compared with ECG of 21-JUL-2020 16:27,T wave amplitude has decreased in Lateral leadsQT has shortenedConfirmed by MD SHIVANI, MATTY ([id number]) on 07/23/2020 5:54:13 [facility] 2020-07-23 14:42:00 Test Item Value Reference Range Interpretation Comments POC-Glucose Meter (test 131 mg/dL 70-110 H : TE STED AT [facility] code = 1538) [address] [place], [address]: Aromatherapist/Techni tigre ID = [id number] for Marcell Tripp Lab Interpretation (test Abnormal code = 31897-2) [facility] [id number] 14:42:00 Test Item Value Reference Range Interpretation Comments POC-GLUCOSE METER 131 mg/dL 70-110 H : TESTED A T [facility] 6720 (BEAKER) (test code = [place], 1538) [address]: Aromatherapist/Techni tigre ID = [id number] for Leslie Bowman Basic Metabolic [id number] 07:11:00 Test Item Value Reference Range Interpretation Comments Sodium (test code = 142 meq/L 226-924 5056-2) Potassium (test code = 3.7 meq/L 3.5-5.1 2823-3) Chloride (test code = 104 meq/L 98-107 2075-0) CO2 (test code = 31 meq/L 22-29 H 2028-9) BUN (test code = 18 mg/dL 7-21 3094-0) Creatinine (test code 0.74 mg/dL 0.57-1.25 = 2160-0) Glucose (test code = 116 mg/dL 70-105 H 2345-7) Calcium (test code = 8.2 mg/dL 8.4-10.2 L 99926-1) EGFR (test code = 77 mL/min/1.73 sq m [facility] [place] [address]-3) NOT ACCURATE CREATININE CLEARANCE IN PREDICTING GLOMERULAR FILTRATION RATE . ESTIMATED GFR I S NOT APPLICABLE FOR DIALYSIS PATIENTS. STAR (test code = STAR) Aromatherapist ID - EDASI Lab Interpretation Abnormal (test code = 10364-7) [facility]00 Test Item Value Reference Range Interpretation Comments Magnesium (test code = 1.9 mg/dL 1.6-2.6 84591-3) STAR (test code = STAR) Aromatherapist ID - EDASI Lab Interpretation (test Normal code = 29522-7) [facility]00 Test Item Value Reference Range Interpretation Comments Phosphorus (test code = 2.3 mg/dL 2.3-4.7 2777-1) STAR (test code = STAR) Aromatherapist ID - EDASI Lab Interpretation (test Normal code = 82415-0) [facility] [id number] 07:11:00 Test Item Value Reference Range Interpretation Comments SODIUM (BEAKER) 142 meq/L 136-145 (test code = 381) POTASSIUM (BEAKER) 3.7 meq/L 3.5-5.1 (test code = 379) CHLORIDE (BEAKER) 104 meq/L 98-107 (test code = 382) CO2 (BEAKER) (test 31 meq/L 22-29 H code = 355) BLOOD UREA NITROGEN 18 mg/dL 7-21 (BEAKER) (test code = 354) CREATININE (BEAKER) 0.74 mg/dL 0.57-1.25 (test code = 358) GLUCOSE RANDOM 116 mg/dL 70-105 H (BEAKER) (test code = 652) CALCIUM (BEAKER) 8.2 mg/dL 8.4-10.2 L (test code = 697) EGFR (BEAKER) (test 77 mL/min/1.73 ESTIMA RORY GFR IS code = 1092) sq m NOT ACCURATE CREATININE CLEARANCE IN PREDICTING GLOMERULAR FILTRATION RATE . ESTIMATED GFR I S NOT APPLICABLE FOR DIALYSIS PATIEN TS. Aromatherapist ID - [id number] 07:11:00 Test Item Value Reference Range Interpretation Comments MAGNESIUM (BEAKER) (test code = 1.9 mg/dL 1.6-2.6 627) Aromatherapist ID - [id number] 07:11:00 Test Item Value Reference Range Interpretation Comments PHOSPHORUS (BEAKER) (test code = 2.3 mg/dL 2.3-4.7 604) Aromatherapist ID - EDASICBC with platelet count + automated [id number] 06:17:00 Test Item Value Reference Range Interpretation Comments WBC (test code = 6690-2) 10.6 See_Comment H [A utomated message] The system [employer] generated this result transmitted ref erence range: 3.5 - 10 .5 K/L. The refe rence range was not u sed to interpret this result as normal/abnor mal. RBC (test code = 789-8) 2.71 See_Comment L [Au tomated message] The system [employer] generated this result transmitted ref erence range: 3.93 - 5 .22 M/L. The refe rence range was not u sed to interpret this result as normal/abnor mal. MCHC (test code = 786-4) 31.7 See_Comment L [A utomated message] The system [employer] generated this result transmitted ref erence range: 32.2 - 3 5.5 GM/DL. The refe rence range was not u sed to interpret this result as normal/abnor mal. Hematocrit (test code = 27.1 % 34.1-44.9 L 4544-3) MCV (test code = 787-2) 100.0 fL 79.4-94.8 H MCH (test code = 785-6) 31.7 pg 25.6-32.2 RDW (test code = 788-0) 14.7 % 11.7-14.4 H Platelets (test code = 239 See_Comment [Aut omated message] 777-3) The system [employer] generated this result transmitted ref erence range: 150 - 45 0 K/CU MM. The referen ce range was not u sed to interpret this result as normal/abnor mal. MPV (test code = 10.1 fL 9.4-12.3 82069-2) nRBC (test code = 413) 0 See_Comment [Aut omated message] The system [employer] generated this result transmitted ref erence range: 0 - 0 /1 00 WBC. The refere nce range was not u sed to interpret this result as normal/abnor mal. % Neutros (test code = 75 % 429) % Lymphs (test code = 15 % 430) % Monos (test code = 9 % 431) % Eos (test code = 432) 0 % % Baso (test code = 437) 0 % # Neutros (test code = 7.97 See_Comment H [Aut omated message] 670) The system [employer] generated this result transmitted ref erence range: 1.56 - 6 .13 K/L. The refe rence range was not u sed to interpret this result as normal/abnor mal. # Lymphs (test code = 1.56 See_Comment [Auto mated message] 414) The system [employer] generated this result transmitted ref erence range: 1.18 - 3 .74 K/L. The refe rence range was not u sed to interpret this result as normal/abnor mal. # Monos (test code = 0.96 See_Comment H [Autom ated message] 415) The system [employer] generated this result transmitted ref erence range: 0.24 - 0 .36 K/L. The refe rence range was not u sed to interpret this result as normal/abnor mal. # Eos (test code = 416) 0.02 See_Comment L [Au tomated message] The system [employer] generated this result transmitted ref erence range: 0.04 - 0 .36 K/L. The refe rence range was not u sed to interpret this result as normal/abnor mal. # Baso (test code = 417) 0.04 See_Comment [A utomated message] The system [employer] generated this result transmitted ref erence range: 0.01 - 0 .08 K/L. The refe rence range was not u sed to interpret this result as normal/abnor mal. Immature 1 % 0-1 Granulocytes-Relative (test code = 2801) Lab Interpretation (test Abnormal code = 70298-1) [facility] W/PLT COUNT & AUTO [id number] 06:17:00 Test Item Value Reference Range Interpretation Comments WHITE BLOOD CELL COUNT (BEAKER) 10.6 K/ L 3.5-10.5 H (test code = 775) RED BLOOD CELL COUNT (BEAKER) 2.71 M/ L 3.93-5.22 L (test code = 761) HEMOGLOBIN (BEAKER) (test code = 8.6 GM/DL 11.2-15.7 L 410) HEMATOCRIT (BEAKER) (test code = 27.1 % 34.1-44.9 L 411) MEAN CORPUSCULAR VOLUME (BEAKER) 100.0 fL 79.4-94.8 H (test code = 753) MEAN CORPUSCULAR HEMOGLOBIN 31.7 pg 25.6-32.2 (BEAKER) (test code = 751) MEAN CORPUSCULAR HEMOGLOBIN CONC 31.7 GM/DL 32.2-35.5 L (BEAKER) (test code = 752) RED CELL DISTRIBUTION WIDTH 14.7 % 11.7-14.4 H (BEAKER) (test code = 412) PLATELET COUNT (BEAKER) (test 239 K/CU MM 150-450 code = 756) MEAN PLATELET VOLUME (BEAKER) 10.1 fL 9.4-12.3 (test code = 754) NUCLEATED RED BLOOD CELLS 0 /100 WBC 0-0 (BEAKER) (test code = 413) NEUTROPHILS RELATIVE PERCENT 75 % (BEAKER) (test code = 429) LYMPHOCYTES RELATIVE PERCENT 15 % (BEAKER) (test code = 430) MONOCYTES RELATIVE PERCENT 9 % (BEAKER) (test code = 431) EOSINOPHILS RELATIVE PERCENT 0 % (BEAKER) (test code = 432) BASOPHILS RELATIVE PERCENT 0 % (BEAKER) (test code = 437) NEUTROPHILS ABSOLUTE COUNT 7.97 K/ L 1.56-6.13 H (BEAKER) (test code = 670) LYMPHOCYTES ABSOLUTE COUNT 1.56 K/ L 1.18-3.74 (BEAKER) (test code = 414) MONOCYTES ABSOLUTE COUNT (BEAKER) 0.96 K/ L 0.24-0.36 H (test code = 415) EOSINOPHILS ABSOLUTE COUNT 0.02 K/ L 0.04-0.36 L (BEAKER) (test code = 416) BASOPHILS ABSOLUTE COUNT (BEAKER) 0.04 K/ L 0.01-0.08 (test code = 417) IMMATURE GRANULOCYTES-RELATIVE 1 % 0-1 PERCENT (BEAKER) (test code = 2801) POCT-GLUCOSE [id number] 05:16:00 Test Item Value Reference Range Interpretation Comments POC-GLUCOSE METER 122 mg/dL 70-110 H : TESTED A T [facility] 6720 (BEAKER) (test code = [place], 1538) [address]: Aromatherapist/Techni tigre ID = [id number] for VIVIENNE LOPEZ SE [id number] 00:56:00 Test Item Value Reference Range Interpretation Comments POC-Glucose (test code = 124 mg/dL 70-110 H : T FAYE AT [facility] 1855) [address] [facility] [place], [address]: Aromatherapist/Techni tigre ID = [id number] for ZULLY BONNER ALD Lab Interpretation (test Abnormal code = 49582-7) [facility]PO[facility]-[id number] 00:56:00 Test Item Value Reference Range Interpretation Comments POC-GLUCOSE 124 mg/dL 70-110 H : TESTED AT [facility] 6720 (BEAKER) (test code [facility], = 1855) [address]: Aromatherapist/Techni tigre ID = [id number] for LESA YBARRA POC-Blood gases, [id number] 00:55:00 Test Item Value Reference Range Interpretation Comments Temp. Celsius-POC (test 97.4 code = 1834) FIO2-POC (test code = 44 1835) pH, Venous-POC (test 7.315 7.320-7.420 L : TESTE D AT [facility] code = 1842) [address] [facility], [address] PCO2, Venous-POC (test 55.6 See_Comment H If pO 2 is >180, pCO2 code = 1843) may be positive ly biased [Automat ed message] The sy stem which generated this result transmit rory reference range : 41.0 - 51.0 mm Hg. The reference r zo was not used to interpret this result as normal/abnormal . PO2, Venous-POC (test 31.0 See_Comment [Auto mated message] code = 1844) The system [employer] generated this result transmit rory reference range : 25.0 - 40.0 mm Hg. The reference r zo was not used to interpret this result as normal/abnormal . SO2, Venous-POC (test 56.0 % 40-70 code = 1845) HCO3, Venous-POC (test 28.5 meq/L 21-29 code = 1846) BE, Venous-POC (test 2.0 meq/L -2-3 : code = 1847) Aromatherapist/Techni tigre ID = [id number] for HA MEREDITHGERBER ALD Lab Interpretation Abnormal (test code = 16683-8) [facility]-Calcium [id number] 00:55:00 Test Item Value Reference Range Interpretation Comments POC-Calcium Ionized 1.24 mmol/L 1.12-1.27 : TESTED AT [facility] (test code = 1536) [address] [facility], [address]: Aromatherapist/Techni tigre ID = [id number] for ZULLY BONNER ALD Lab Interpretation Normal (test code = 14666-1) [facility]-[id number] 00:55:00 Test Item Value Reference Range Interpretation Comments POC-Potassium (test code 3.9 meq/L 3.6-5.5 : T ESTED AT [facility] = 1540) [address] [facility], [address]: Aromatherapist/Techni tigre ID = [id number] for BAYANGUSMANZGER ALD Lab Interpretation (test Normal code = 35960-5) [facility]-[id number] 00:55:00 Test Item Value Reference Range Interpretation Comments POC-Sodium (test code = 141 meq/L 135-148 : TE STED AT [facility] 1542) [address] [facility], [address]: Aromatherapist/Techni tigre ID = [id number] for BAYANG, FITZGER ALD Lab Interpretation (test Normal code = 11062-7) [facility]-[id number] 00:55:00 Test Item Value Reference Range Interpretation Comments POC-Hemoglobin (test code 8.8 g/dL 12-15 L : TESTED AT [facility] = 1856) [address] [facility], [address]: Aromatherapist/Techni tigre ID = [id number] for BAYANG, FITZGER ALD Lab Interpretation (test Abnormal code = 65853-2) [facility]-[id number] 00:55:00 Test Item Value Reference Range Interpretation Comments POC-Hematocrit (test code 26 % 36-45 L : = 1857) Aromatherapist/Techni tigre ID = [id number] for BAYANG, FITZGER ALD Lab Interpretation (test Abnormal code = 33907-7) [facility]-BLOOD GASES, [id number] 00:55:00 Test Item Value Reference Range Interpretation Comments TEMP, CELSIUS-POC 97.4 (BEAKER) (test code = 1834) FIO2-POC (BEAKER) 44 (test code = 1835) PH, VENOUS-POC 7.315 7.320-7.420 L : TESTED AT [facility] 6720 (BEAKER) (test code [facility], = 1842) [address] PCO2, VENOUS-POC 55.6 mm Hg 41.0-51.0 H If pO2 is > 180, pCO2 may (BEAKER) (test code be posit ively biased = 1843) PO2, VENOUS-POC 31.0 mm Hg 25.0-40.0 ([facility]) (test code = 1844) SO2, VENOUS-POC 56.0 % 40.0-70.0 ([facility]) (test code = 1845) HCO3, VENOUS-POC 28.5 meq/L 21.0-29.0 ([facility]) (test code = 1846) BASE EXCESS, 2.0 meq/L -2.0-3.0 : Aromatherapist/Tech nician ID VENOUS-POC ([facility]) = [id number] for HA, (test code = 184) DANO D [id number] 00:55:00 Test Item Value Reference Range Interpretation Comments POC-SODIUM ([facility]) 141 meq/L 135-148 : TESTED AT [place] [address] (test code = 1542) [facility], [address]: Aromatherapist/Techni tigre ID = [id number] for LESA YBARRA [id number] 00:55:00 Test Item Value Reference Range Interpretation Comments POC-POTASSIUM 3.9 meq/L 3.6-5.5 : TESTED AT [place] [address] ([facility]) (test code [facility], = 1540) [address]: Aromatherapist/Techni tigre ID = [id number] for LESA YBARRA [id number] 00:55:00 Test Item Value Reference Range Interpretation Comments POC-HEMOGLOBIN 8.8 g/dL 12.0-15.0 L : TESTED AT [place] [address] ([facility]) (test code [facility], = 1856) [address]: Aromatherapist/Techni tigre ID = [id number] for LESA YBARRA [id number] 00:55:00 Test Item Value Reference Range Interpretation Comments POC-HEMATOCRIT 26 % 36-45 L : Aromatherapist/Te chnician ID = ([facility]) (test code = 750654 for HA, 185) LESA POCT-CALCIUM [id number] 00:55:00 Test Item Value Reference Range Interpretation Comments POC-CALCIUM IONIZED 1.24 mmol/L 1.12-1.27 : TESTED AT [place] [address] (BEAKER) (test code [facility], = 1536) [address]: Aromatherapist/Techni tigre ID = [id number] for LESA ARIZMENDI RAD, CHEST, 1 VIEW, NON [id number] 00:55:00Reason for exam:- >desaturationShould this be performed at the bedside?->Yes [facility] 1950 Sex: FFINAL REPORT Chest one view. Clinical history: desaturation Compar sj: Chest radiograph 07/22/2020 Technique: A single frontal view of the chest was obtained. Findings:There is a surgical drain overlying the visualized left neck.The cardiomediastinal contours are stable. There is diffuse bilateral interstitial prominence, nonspecific. There are bibasilar airspace opacities (right greater than left), suspicious for pneumonia. There is a small right pleural effusion. There is a surgical anchor overlying the right humeral head. There is resorption/resection involving the distal third of the right clavicle. There are mild degenerative changes of the bilateral shoulders. Signed: José Dickens MDReport Verified Date/Time: 07/23/2020 00:55:19 Electronically sig harriett by: JOSÉ DICKENS MD on 07/23/2020 12:55 AMXR chest 1 view portable / [id number] 00:55:00Interface, External Ris In - 07/23/2020 12:57 AM CSTFINAL REPORT Chest one view. Clinical history: desaturation Comparison: Chest radiograph 07/22/2020 Technique: A single frontal view of the chest was obtained. Findings:There is a surgical drain overlying the visualized left neck.The cardiomediastinal contours are stable. There is diffuse bilateral interstitial prominence, nonspecific. There are bibasilar airspace opacities (right greater than left), suspicious for pneumonia. There is a small right pleural effusion. There is a surgical anchor overlying the right humeral head. There is resorption/resection involving the distal third of the right clavicle. There are mild degenerative changes of the bilateral shoulders. Signed: José Dickens MDReport Verified Date/Time: 07/23/2020 00:55:19 [facility] [id number] 00:51:00 Test Item Value Reference Range Interpretation Comments POC-GLUCOSE METER 127 mg/dL 70-110 H : TESTED A T [facility] 6720 (BEAKER) (test code = FLORIDALMA Schmitt [facility], 1538) [address]: Aromatherapist/Techni tigre ID = [id number] for VIVIENNE LOPEZ SE BASIC METABOLIC [id number] 15:53:00 Test Item Value Reference Range Interpretation Comments SODIUM (BEAKER) 143 meq/L 136-145 (test code = 381) POTASSIUM (BEAKER) 4.2 meq/L 3.5-5.1 (test code = 379) CHLORIDE (BEAKER) 110 meq/L 98-107 H (test code = 382) CO2 (BEAKER) (test 28 meq/L 22-29 code = 355) BLOOD UREA NITROGEN 24 mg/dL 7-21 H (BEAKER) (test code = 354) CREATININE (BEAKER) 0.69 mg/dL 0.57-1.25 (test code = 358) GLUCOSE RANDOM 121 mg/dL 70-105 H (BEAKER) (test code = 652) CALCIUM (BEAKER) 7.9 mg/dL 8.4-10.2 L (test code = 697) EGFR (BEAKER) (test 84 mL/min/1.73 ESTIMA RORY GFR IS code = 1092) sq m NOT ACCURATE CREATININE CLEARANCE IN PREDICTING GLOMERULAR FILTRATION RATE . ESTIMATED GFR I S NOT APPLICABLE FOR DIALYSIS PATIEN TS. Aromatherapist ID - [id number] 15:44:00 Test Item Value Reference Range Interpretation Comments MAGNESIUM (BEAKER) (test code = 2.0 mg/dL 1.6-2.6 627) Aromatherapist ID - [id number] 15:44:00 Test Item Value Reference Range Interpretation Comments PHOSPHORUS (BEAKER) (test code = 2.4 mg/dL 2.3-4.7 604) Aromatherapist ID - AAHAMIDLactic Acid, [id number] 15:34:00 Test Item Value Reference Range Interpretation Comments Lactate, Art (test 0.8 mmol/L 0.5-2.2 Specimen code = 2874) moderately hemolyzed STAR (test code = STAR) Aromatherapist ID - AAHAMID Lab Interpretation Normal (test code = 31987-8) [facility], [id number] 15:34:00 Test Item Value Reference Range Interpretation Comments LACTATE BLOOD 0.8 mmol/L 0.5-2.2 Specimen moder ately ARTERIAL (2) (BEAKER) hemoly zed (test code = 2874) Aromatherapist ID - AAHAMIDCBC W/PLT COUNT & AUTO [id number] 15:11:00 Test Item Value Reference Range Interpretation Comments WHITE BLOOD CELL COUNT (BEAKER) 13.7 K/ L 3.5-10.5 H (test code = 775) RED BLOOD CELL COUNT (BEAKER) 2.31 M/ L 3.93-5.22 L (test code = 761) HEMOGLOBIN (BEAKER) (test code = 7.4 GM/DL 11.2-15.7 L 410) HEMATOCRIT (BEAKER) (test code = 23.1 % 34.1-44.9 L 411) MEAN CORPUSCULAR VOLUME (BEAKER) 100.0 fL 79.4-94.8 H (test code = 753) MEAN CORPUSCULAR HEMOGLOBIN 32.0 pg 25.6-32.2 (BEAKER) (test code = 751) MEAN CORPUSCULAR HEMOGLOBIN CONC 32.0 GM/DL 32.2-35.5 L (BEAKER) (test code = 752) RED CELL DISTRIBUTION WIDTH 14.5 % 11.7-14.4 H (BEAKER) (test code = 412) PLATELET COUNT (BEAKER) (test 240 K/CU MM 150-450 code = 756) MEAN PLATELET VOLUME (BEAKER) 10.4 fL 9.4-12.3 (test code = 754) NUCLEATED RED BLOOD CELLS 0 /100 WBC 0-0 (BEAKER) (test code = 413) NEUTROPHILS RELATIVE PERCENT 76 % (BEAKER) (test code = 429) LYMPHOCYTES RELATIVE PERCENT 15 % (BEAKER) (test code = 430) MONOCYTES RELATIVE PERCENT 8 % (BEAKER) (test code = 431) EOSINOPHILS RELATIVE PERCENT 0 % (BEAKER) (test code = 432) BASOPHILS RELATIVE PERCENT 0 % (BEAKER) (test code = 437) NEUTROPHILS ABSOLUTE COUNT 10.38 K/ L 1.56-6.13 H (BEAKER) (test code = 670) LYMPHOCYTES ABSOLUTE COUNT 2.01 K/ L 1.18-3.74 (BEAKER) (test code = 414) MONOCYTES ABSOLUTE COUNT (BEAKER) 1.15 K/ L 0.24-0.36 H (test code = 415) EOSINOPHILS ABSOLUTE COUNT 0.04 K/ L 0.04-0.36 (BEAKER) (test code = 416) BASOPHILS ABSOLUTE COUNT (BEAKER) 0.02 K/ L 0.01-0.08 (test code = 417) IMMATURE GRANULOCYTES-RELATIVE 1 % 0-1 PERCENT (BEAKER) (test code = 2801) Blood gas, [id number] 15:07:00 Test Item Value Reference Range Interpretation Comments pH, Arterial (test code 7.35 7.35-7.45 = 2744-1) pCO2, Arterial (test 51 See_Comment H [Autom ated message] code = 2019-) The system [employer] generated this result transmit rory reference range : 35 - 45 mm Hg. The reference range was not used to interpret this result as normal/abnormal . pO2, Arterial (test 112 See_Comment H [Automa rory message] code = 8953-7) The system [employer] generated this result transmit rory reference range : 80 - 90 mm Hg. The reference range was not used to interpret this result as normal/abnormal . O2 Sat, Arterial (test 97.9 % 96-97 H code = 5798-6) HCO3, Arterial (test 27 mmol/L 21-29 code = 1960-4) Base Excess, Arterial 1.2 mmol/L -2-3 (test code = 1925-7) Patient Temperature 36.4 (test code = 8310-5) FIO2 (test code = 1819) 36 Lab Interpretation Abnormal (test code = 40076-9) [facility], [id number] 15:07:00 Test Item Value Reference Range Interpretation Comments PH ARTERIAL (BEAKER) (test code = 7.35 7.35-7.45 383) PCO2 ARTERIAL (BEAKER) (test code 51 mm Hg 35-45 H = 384) PO2 ARTERIAL (BEAKER) (test code = 112 mm Hg 80-90 H 385) O2 SATURATION ARTERIAL (BEAKER) 97.9 % 96.0-97.0 H (test code = 386) HCO3 ARTERIAL (BEAKER) (test code 27 mmol/L 21-29 = 388) BASE EXCESS ARTERIAL (BEAKER) 1.2 mmol/L -2.0-3.0 (test code = 387) PATIENT TEMPERATURE (BEAKER) (test 36.4 code = 1818) FIO2 (BEAKER) (test code = 1819) 36.0 RAD, CHEST, 1 VIEW, NON [id number] 13:46:00Reason for exam:->s/p carotidShould this be performed at the bedside?->Yes [facility] 1950 Sex: FFINAL REPORT CLINICAL HISTORY: s/p carotid TECHNIQUE: 1 view of the chest. COMPARISON: 07/19/2020 IMPRESSION: There is a new surgical drain over the left neck compatible with the history. There is no pneumothorax. There is new pulmonary vascular congestion with increased mild bilateral interstitial lung opacities. There are no significant appearing effusions. The cardiomediastinal silhouette is magnified by technique. Signed: Juan Parekh MDReport Verified Date/Time: 07/22/2020 13:46:15 Reading Location: [facility] Radiology Reading Room Calcium, [id number] 11:34:00 Test Item Value Reference Range Interpretation Comments Calcium, Ion (test code = 1994-3) 1.09 mmol/L 1.12-1.27 L pH, Blood (test code = 91083-5) 7.33 Lab Interpretation (test code = Abnormal 65739-0) [facility]Stat [id number] 11:34:00 Test Item Value Reference Range Interpretation Comments Hemoglobin (test code = 8.4 See_Comment L [Au tomated message] 786-4) The system [employer] generated this result transmitted ref erence range: 12.0 - 1 5.0 GM/DL. The refe rence range was not u sed to interpret this result as normal/abnor mal. Hematocrit (test code = 25.0 % 36-45 L 4544-3) Lab Interpretation (test Abnormal code = 91417-0) [facility]Gl[facility]-Stat [id number] 11:34:00 Test Item Value Reference Range Interpretation Comments Glucose (test code = 2345-7) 122 mg/dL 70-110 H Lab Interpretation (test code = Abnormal 97060-8) [facility] CenterPotassium-Stat [id number] 11:34:00 Test Item Value Reference Range Interpretation Comments Potassium (test code = 2823-3) 3.3 meq/L 3.6-5.5 L Lab Interpretation (test code = Abnormal 90116-1) [facility] CenterCALCIUM, [id number] 11:34:00 Test Item Value Reference Range Interpretation Comments CALCIUM IONIZED (BEAKER) (test 1.09 mmol/L 1.12-1.27 L code = 698) PH, BLOOD (BEAKER) (test code = 7.33 1810) POTASSIUM-STAT [id number] 11:34:00 Test Item Value Reference Range Interpretation Comments POTASSIUM (BEAKER) (test code = 3.3 meq/L 3.6-5.5 L 379) GLUCOSE-STAT [id number] 11:34:00 Test Item Value Reference Range Interpretation Comments GLUCOSE RANDOM (BEAKER) (test code 122 mg/dL 70-110 H = 652) HGB/HCT (H&H) - STAT [id number] 11:34:00 Test Item Value Reference Range Interpretation Comments HEMOGLOBIN (BEAKER) (test code = 8.4 GM/DL 12.0-15.0 L 410) HEMATOCRIT (BEAKER) (test code = 25.0 % 36.0-45.0 L 411) Transesophageal [id number] 10:59:28Ejection FractionSLEH ECHO HEARTLAB MKCKESSON CPACSInterface, External Ris In - 07/22/2020 10:59 AM C STTransesophageal Echocardiography Report (FRANCY) Demographics Patient Name ERICA JASON Date of Study 07/19/2020 MAIRA Gender Female Visit Number [id number] Race Unknown Room Number SCPR Number Date of 1950 Referring Physician Vincent Ferrer MD Age 70 year(s) 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 Normal overall left ventricular systolic function. The right ventricular chamber size and systolic function are within normal limits. There is moderate aortic stenosis. AoV area by planimtery isin the range of 1.3 cm2. AoV area at rest by continuity equation is in the range of 1.3 cm2. Estimated peak systolic PA pressure is 20-25 mmHg + RA pressure. Signature Findings Left Ventricle Normal left ventricle cavity size. Normal overall left ventricular systolic function. Left Atrium LA is enlarged but severity assessment is unreliable due to know FRANCY sector size limitation. No evidence of left atrial or left atrial appendage thrombus. Right The right ventricular chamber size and systolic funct ion Ventricle are within normal limits. Right Atrium RA size is normal. Aortic Valve MildAoV cusp thickening. There is mild aortic regurgitation. There is moderate aortic stenosis. AoV area by planimtery is in the range of 1.3 cm2. AoV area at rest by continuity equation is in the range of 1.3 cm2. Mitral Valve M ild MV leaflet thickening. Mild mitral annular calcification. Mild mitral regurgitation. Tricuspid Mild tricuspid regurgitation. Valve Estimated peak systolic PA pressure is 20-25 mmHg + RA pressure. Pulmonic Valve Normal PV structure appears normal by available views. Pericardium No pericardial effusion is visualized. Chambers/Structures Left Ventricle LVOT Diameter: 2 cm Doppler/Quantitative Measurements Aortic Valve Peak Velocity:2.17 m/s Mean Velocity: 1.39 m/s Peak Gradient: 18.89 mmHg Mean Gradient: 9.18 mmHg AV Area (continuity): 1.28 cm^2 AV VTI: 50.53 cm AV DVI: 0.41 LVOT Peak Velocity: 0.86 m/s Peak Gradient: 2.99 mmHg Mean Velocity: 0.54 m/s Mean Gradient: 1.4 mmHg LVOT Diameter: 2 cm LVOT VTI: 20.63 cm LVOT Area: 3.14 cm^2 LVOT SV:64.78 ml LVOT CO: 5.89 l/min LVOT CI: 2.89 l/min/[facility] (Asymptomatic ONLY)2020-07-22 07:09:00 Test Item Value Reference Range Interpretation Comments SARS-COV2/RT-PCR Negative Not Detected, (test code = Negative, See 47568-2) external report for linked test SARS-COV-2 [facility] PERFORMING LAB (test code = 54094-2) STAR (test code = Negative result for this STAR) test determines that SARS-CoV-2 RNA was not present in the specimen above the Limit of Detection (LOD). However, Negative results do not preclude SARS-CoV-2 infection and should not be used as the sole basis for treatment or patient management decisions. Negative results must be combined with clinical observations, patient history, and epidemiological information. A false negative result may occur if a specimen is improperly collected, transported or handled. A false negative result should be considered if patient's recent exposures or clinical presentation indicate that COVID-19 (SARS-CoV-2) is likely and diagnostic tests for other causes of illness are negative. Re-testing should be considered in cases of suspected false negatives. The limit of detection for this assay is 100 copies/mL. This SARS CoV-2 test is a real-time RT-PCR test intended for the qualitative detection of nucleic acid from SARS-CoV-2 in a nasopharyngeal swab specimen collected from individuals suspected of COVID-19 by their healthcare provider. This test has not been Food and Drug Administration (FDA) cleared or approved. This is a modified version of an approved Emergency Use Authorization (EUA) and is in the process of review by the FDA. Once authorized by the FDA, the issued EUA will be effective until the declaration that circumstances exist justifying the authorization of the emergency use of in vitro diagnostic tests for detection and/or diagnosis of COVID-19 is terminated under Section 564(b)(2) of the Act or the EUA is revoked under Section 564(g) of the Act. Testing was performed using the [employer] SARS-CoV-2 assay. Fact Sheet for Healthcare Providers:https://www.faby borja.AMEC/elder/RT_SA DZ-MdW-9_WCZ_Pcat_Qomab_ 51-181664.pdf Fact Sheet for Healthcare Patients:https://www.susie Rhapsosincere.AMEC/elder/RT_SAR T-HnO-3_Fvqsqrn_Uccv_Tsn et_EN_51-656955A1.pdf Performing Laboratory:[facility] [place] [address] [facility])2020-07-22 07:09:00 Test Item Value Reference Range Interpretation Comments SARS-COV2/RT-PCR (test Negative Not Detected, Negative, code = 8029362) See external report for linked test SARS-COV-[address] [facility] (test code = 7833783) Negative result for this test determines that SARS-CoV-2 RNA was not present in the specimen above the Limit of Detection (LOD). However, Negative results do not preclude SARS-CoV-2 infection and should not be used as the sole basis for treatment or patient management decisions. Negative results mustbe combined with clinical observations, patient history, and epidemiological information. A false negative result may occur if a specimen is improperly collected, transported or handled. A false negative result should be considered if patient's recent exposures or clinical presentation indicate that COVID-19 (SARS-CoV-2) is likely and diagnostic tests for other causes of illness are negative. Re-testing should be considered in cases of suspected false negatives.The limit of detection for this assay is 100 copies/mL.This SARS CoV-2 test is a real-time RT-PCR test intended for the qualitative detection of nucleic acid from SARS-CoV-2 in a nasopharyngeal swab specimen collected from individuals susp ected of COVID-19 by their healthcare provider.This test has not been Food and Drug Administration (FDA) cleared or approved. This is a modified version of an approved Emergency Use Authorization (EUA) and is in the process of review by the FDA. Once authorized by the FDA, the issued EUA will be effective until the declaration that circumstances exist justifying the authorization of the emergency use of in vitro diagnostic tests for detection and/or diagnosis of COVID-19 is terminated under Section 564(b)(2) of the Act or the EUA is revoked under Section 564(g) of the Act.Testing was performed using the [employer] SARS-CoV-2 assay.Fact Sheet for Healthcare Providers:https://www.Barnacle.AMEC/elder/ NE_BSWA-PhR-6_YOB_Sxtq_Mcwbo_94-728974.pdfFact Sheet for Healthcare Patients:https://www.Barnacle.ab tere/eldre/XF_MCAA-RhN-2_Bgftzeh_Aqtn_Pbuov_RI_97-317556K6.pdfPerforming Laboratory:[facility], [place] [address]AZX W/PLT COUNT & AUTO [id number] 05:42:00 Test Item Value Reference Range Interpretation Comments WHITE BLOOD CELL COUNT (BEAKER) 17.6 K/ L 3.5-10.5 H (test code = 775) RED BLOOD CELL COUNT (BEAKER) 2.81 M/ L 3.93-5.22 L (test code = 761) HEMOGLOBIN (BEAKER) (test code = 8.9 GM/DL 11.2-15.7 L 410) HEMATOCRIT (BEAKER) (test code = 26.7 % 34.1-44.9 L 411) MEAN CORPUSCULAR VOLUME (BEAKER) 95.0 fL 79.4-94.8 H (test code = 753) MEAN CORPUSCULAR HEMOGLOBIN 31.7 pg 25.6-32.2 (BEAKER) (test code = 751) MEAN CORPUSCULAR HEMOGLOBIN CONC 33.3 GM/DL 32.2-35.5 (BEAKER) (test code = 752) RED CELL DISTRIBUTION WIDTH 13.9 % 11.7-14.4 (BEAKER) (test code = 412) PLATELET COUNT (BEAKER) (test 292 K/CU MM 150-450 code = 756) MEAN PLATELET VOLUME (BEAKER) 10.5 fL 9.4-12.3 (test code = 754) NUCLEATED RED BLOOD CELLS 0 /100 WBC 0-0 (BEAKER) (test code = 413) NEUTROPHILS RELATIVE PERCENT 84 % (BEAKER) (test code = 429) LYMPHOCYTES RELATIVE PERCENT 10 % (BEAKER) (test code = 430) MONOCYTES RELATIVE PERCENT 6 % (BEAKER) (test code = 431) EOSINOPHILS RELATIVE PERCENT 0 % (BEAKER) (test code = 432) BASOPHILS RELATIVE PERCENT 0 % (BEAKER) (test code = 437) NEUTROPHILS ABSOLUTE COUNT 14.75 K/ L 1.56-6.13 H (BEAKER) (test code = 670) LYMPHOCYTES ABSOLUTE COUNT 1.72 K/ L 1.18-3.74 (BEAKER) (test code = 414) MONOCYTES ABSOLUTE COUNT (BEAKER) 1.01 K/ L 0.24-0.36 H (test code = 415) EOSINOPHILS ABSOLUTE COUNT 0.00 K/ L 0.04-0.36 L (BEAKER) (test code = 416) BASOPHILS ABSOLUTE COUNT (BEAKER) 0.01 K/ L 0.01-0.08 (test code = 417) IMMATURE GRANULOCYTES-RELATIVE 1 % 0-1 PERCENT (BEAKER) (test code = 2801) BASIC METABOLIC [id number] 05:35:00 Test Item Value Reference Range Interpretation Comments SODIUM (BEAKER) 141 meq/L 136-145 (test code = 381) POTASSIUM (BEAKER) 3.9 meq/L 3.5-5.1 (test code = 379) CHLORIDE (BEAKER) 104 meq/L 98-107 (test code = 382) CO2 (BEAKER) (test 31 meq/L 22-29 H code = 355) BLOOD UREA NITROGEN 23 mg/dL 7-21 H (BEAKER) (test code = 354) CREATININE (BEAKER) 0.73 mg/dL 0.57-1.25 (test code = 358) GLUCOSE RANDOM 123 mg/dL 70-105 H (BEAKER) (test code = 652) CALCIUM (BEAKER) 8.8 mg/dL 8.4-10.2 (test code = 697) EGFR (BEAKER) (test 79 mL/min/1.73 ESTIMA RORY GFR IS code = 1092) sq m NOT ACCURATE CREATININE CLEARANCE IN PREDICTING GLOMERULAR FILTRATION RATE . ESTIMATED GFR I S NOT APPLICABLE FOR DIALYSIS PATIEN TS. Aromatherapist ID - JOSE [id number] 05:35:00 Test Item Value Reference Range Interpretation Comments MAGNESIUM (BEAKER) (test code = 2.2 mg/dL 1.6-2.6 627) Aromatherapist ID - JOSE [id number] 05:35:00 Test Item Value Reference Range Interpretation Comments PHOSPHORUS (BEAKER) (test code = 2.5 mg/dL 2.3-4.7 604) Aromatherapist ID - JOSE LPOCT-GLUCOSE [id number] 05:20:00 Test Item Value Reference Range Interpretation Comments POC-GLUCOSE METER 122 mg/dL 70-110 H : TESTED A T [facility] 6720 (BEAKER) (test code = [facility], 1538) 86[address]: Aromatherapist/Techni tigre ID = [id number] for BRIDGER RENEE POCT-GLUCOSE [id number] 21:05:00 Test Item Value Reference Range Interpretation Comments POC-GLUCOSE METER 150 mg/dL 70-110 H : TESTED A T [facility] 6720 (BEAKER) (test code = [facility], 1538) 67696: Aromatherapist/Techni tigre ID = [id number] for YONI BENNETT POCT-GLUCOSE [id number] 16:43:00 Test Item Value Reference Range Interpretation Comments POC-GLUCOSE METER 156 mg/dL 70-110 H : TESTED A T [facility] 6720 (BEAKER) (test code = [facility], 1538) 22846: Aromatherapist/Techni tigre ID = [id number] for ILYA FRIEDMAN [id number] 16:06:00 Test Item Value Reference Range Interpretation Comments PTT (test code = 29111-1) 30.3 See_Comment [ Automated message] The system whic h generated this result transmitted ref erence range: 22.5 - 3 6.0 seconds. The re ference range was not u sed to interpret this result as normal/abnor mal. Lab Interpretation (test Normal code = 00221-8) [id number] Test Item Value Reference Range Interpretation Comments PARTIAL THROMBOPLASTIN TIME 30.3 seconds 22.5-36.0 (BEAKER) (test code = 760) Prothrombin time/[id number] 16:05:00 Test Item Value Reference Interpretation Comments Range Protime (test code = 14.1 See_Comment [Autom ated 6182-2) message] The system which generated this result transmitted reference range : 11.9 - 14.2 seconds. The reference range was not used to interpret this result as normal/abnormal . INR (test code = 1.12 See_Comment [Automated 0541-6) message] The system which generated this result transmitted reference range : <=5.90. The reference range was not used to interpret this result as normal/abnormal . STAR (test code = Effective 12/04/2018: STAR) PT Reference Range ChangeNew: 11.9-14.2 Previous: 11.7-14.7 RECOMMENDED COUMADIN/WARFARIN INR THERAPY RANGESSTANDARD DOSE: 2.0-3.0 Includes: PROPHYLAXIS for venous thrombosis, systemic embolization; TREATMENT for venous thrombosis and/or pulmonary embolus.HIGH RISK: Target INR is 2.5-3.5 for patients wiht mechanical heart valves. Lab Interpretation Normal (test code = 01110-8) [facility]/[id number] 16:05:00 Test Item Value Reference Range Interpretation Comments PROTIME (BEAKER) (test code = 14.1 seconds 11.9-14.2 759) INR (BEAKER) (test code = 370) 1.12 <=5.90 Effective 12/04/2018: PT Reference Range ChangeNew: 11.9-14.2 Previous: 11.7- 14.7RECOMMENDED COUMADIN/WARFARIN INR THERAPY RANGESSTANDARD DOSE: 2.0-3.0 Includes: PROPHYLAXIS for venous thrombosis, systemic embolization; TREATMENT for venous thrombosis and/or pulmonary embolus.HIGH RISK: Target INR is2.5-3.5 for patients wiht mechanical heart valves.BASIC METABOLIC [id number] 04:00:00 Test Item Value Reference Range Interpretation Comments SODIUM (BEAKER) 140 meq/L 136-145 (test code = 381) POTASSIUM (BEAKER) 3.8 meq/L 3.5-5.1 (test code = 379) CHLORIDE (BEAKER) 103 meq/L 98-107 (test code = 382) CO2 (BEAKER) (test 31 meq/L 22-29 H code = 355) BLOOD UREA NITROGEN 12 mg/dL 7-21 (BEAKER) (test code = 354) CREATININE (BEAKER) 0.71 mg/dL 0.57-1.25 (test code = 358) GLUCOSE RANDOM 130 mg/dL 70-105 H (BEAKER) (test code = 652) CALCIUM (BEAKER) 8.7 mg/dL 8.4-10.2 (test code = 697) EGFR (BEAKER) (test 81 mL/min/1.73 ESTIMA RORY GFR IS code = 1092) sq m NOT ACCURATE CREATININE CLEARANCE IN PREDICTING GLOMERULAR FILTRATION RATE . ESTIMATED GFR I S NOT APPLICABLE FOR DIALYSIS PATIEN TS. Aromatherapist ID - LIBIA [id number] 04:00:00 Test Item Value Reference Range Interpretation Comments MAGNESIUM (BEAKER) (test code = 1.9 mg/dL 1.6-2.6 627) Aromatherapist ID - LIBIA [id number] 04:00:00 Test Item Value Reference Range Interpretation Comments PHOSPHORUS (BEAKER) (test code = 2.4 mg/dL 2.3-4.7 604) Aromatherapist ID - LIBIA WCBC W/PLT COUNT & AUTO [id number] 03:54:00 Test Item Value Reference Range Interpretation Comments WHITE BLOOD CELL COUNT (BEAKER) 10.7 K/ L 3.5-10.5 H (test code = 775) RED BLOOD CELL COUNT (BEAKER) 2.98 M/ L 3.93-5.22 L (test code = 761) HEMOGLOBIN (BEAKER) (test code = 9.5 GM/DL 11.2-15.7 L 410) HEMATOCRIT (BEAKER) (test code = 28.6 % 34.1-44.9 L 411) MEAN CORPUSCULAR VOLUME (BEAKER) 96.0 fL 79.4-94.8 H (test code = 753) MEAN CORPUSCULAR HEMOGLOBIN 31.9 pg 25.6-32.2 (BEAKER) (test code = 751) MEAN CORPUSCULAR HEMOGLOBIN CONC 33.2 GM/DL 32.2-35.5 (BEAKER) (test code = 752) RED CELL DISTRIBUTION WIDTH 13.8 % 11.7-14.4 (BEAKER) (test code = 412) PLATELET COUNT (BEAKER) (test 273 K/CU MM 150-450 code = 756) MEAN PLATELET VOLUME (BEAKER) 10.1 fL 9.4-12.3 (test code = 754) NUCLEATED RED BLOOD CELLS 0 /100 WBC 0-0 (BEAKER) (test code = 413) NEUTROPHILS RELATIVE PERCENT 89 % (BEAKER) (test code = 429) LYMPHOCYTES RELATIVE PERCENT 8 % (BEAKER) (test code = 430) MONOCYTES RELATIVE PERCENT 2 % (BEAKER) (test code = 431) EOSINOPHILS RELATIVE PERCENT 0 % (BEAKER) (test code = 432) BASOPHILS RELATIVE PERCENT 0 % (BEAKER) (test code = 437) NEUTROPHILS ABSOLUTE COUNT 9.56 K/ L 1.56-6.13 H (BEAKER) (test code = 670) LYMPHOCYTES ABSOLUTE COUNT 0.90 K/ L 1.18-3.74 L (BEAKER) (test code = 414) MONOCYTES ABSOLUTE COUNT (BEAKER) 0.20 K/ L 0.24-0.36 L (test code = 415) EOSINOPHILS ABSOLUTE COUNT 0.01 K/ L 0.04-0.36 L (BEAKER) (test code = 416) BASOPHILS ABSOLUTE COUNT (BEAKER) 0.03 K/ L 0.01-0.08 (test code = 417) IMMATURE GRANULOCYTES-RELATIVE 0 % 0-1 PERCENT (BEAKER) (test code = 2801) POCT-GLUCOSE [id number] 18:33:00 Test Item Value Reference Range Interpretation Comments POC-GLUCOSE METER 124 mg/dL 70-110 H : TESTED A T [facility] 6720 (BEAKER) (test code = [facility], 1538) 56699: Aromatherapist/Techni tigre ID = [id number] for LAURIE VILLASENOR POCT-GLUCOSE [id number] 11:58:00 Test Item Value Reference Range Interpretation Comments POC-GLUCOSE METER 92 mg/dL 70-110 : TESTED A T [facility] 6720 (BEAKER) (test code = [facility], 1538) 23304: Aromatherapist/Techni tigre ID = [id number] for LAURIE VILLASENOR 2D Echo W/Doppler(CW/PW/Color)2020-07-20 09:54:32Ejection FractionSLEH ECHO HEARTLAB MKCKESSON CPACSInterface, External Ris In - 07/20/2020 9:54 AM C STTransthoracic Echocardiography Report (TTE) Demographics Patient Name ERICA JASON Date of Study 07/19/2020 MAIRA Gender Female Visit Number [id number] Race Unknown Room Number 2C25 Number Date of 1950 Referring Physician Hayden Lewis Age 70 year(s) Utility Person Tyshawn Arambula [facility] Interpreting Sheila Evans MD PhysicianFelldominic Pascual MD Procedure Type of Study TTE procedure:2DECHO W DOPPLER(CW/PW/COLOR) (STAT) Indications:Hypotension or hemodynamic instability.Clinical HistoryCancerCOPDDyspnea on e xertionMurmurHyperlipidemiaHypertensionShortness of BreathThyroid diseaseHGB 11.4HCT 34.6 %Height: 66 inches Weight: 95.25 kg (210 lbs) BSA: 2.04 m^2 BMI: 33.89 kg/m^2HR: 75 bpm BP: 122/60 mmHg Summary1. The left ventricle is chamber size (by vol index) is normal (female - LVED vol - 29-61ml/m2). Mild to moderate concentric LVH noted. All of the LV segments contract normally . LVEF by Weiss's method of disk assessment is normal (60%) . Diastolic function is indeterminate due to presence of significant MAC. 2. The right ventricular chamber size and systolic function are within normal limits. S' 11 cm/sec. 3. LA size is mildly enlarged (35-41 ml/m2) . RA is partially visualized. In the limited views the RA appears to be grossly normal in size. 4. Trileaflet aortic valve. Moderate AoV cusp thickening. Moderate AoV cusp calcification. A trace of aortic regurgitation. Mild aortic stenosis. Meangradient of 8 mm Hg, YVROSE of 1.7 cm^2 in the setting of Stroke volume index > 35 cc/m^2. 5. Moderate MAC. Moderate thickening and calcification of the mitral leaflets noted. Trace MR. There is a gradient of 4 mm Hg across the mitral valve at heart rate of 71 bpm secondary to the presence of the moderate MAC. 6. Mild tricuspid regurgitation. Estimated peak systolic PA pressure is 30-35 mmHg (normal range) . The estimated RA pressure by IVC dynamics 5-10mmHg . 7. Prominent pericardial fat pad noted. No pericardial effusion. Previous Study No prior exam available for comparison. Signature Findings Rhythm/BP Regular sinus rhythm during the exam. Left Ventricle The left ventricle is chamber size (by vol index) is normal (female - LVED vol - 29-61ml/m2). Mild to moderate concentric LVH noted. All of the LV segments contract normally . LVEF by Weiss's method of disk assessment is normal (60%) . Diastolic function is indeterminate due to presence of significant MAC. Left Atrium LA size is mildly enlarged (35-41 ml/m2) . Right Ventricle The right ventricular chamber size and systolic function are within normal limits. S' 11 cm/sec. Right Atrium RA is partially visualized. In the limited views the RA appears to be grossly normal in size. Atrial Septum Normal interatrial septum by available views. IV saline study was not requested/not performed. Aortic Valve Trileaflet aortic valve. Moderate AoV cusp thickening. Moderate AoV cusp calcification. A trace of aortic regurgitation. Mild aortic stenosis. Meangradient of 8 mm Hg, YVROSE of 1.7 cm^2 in the setting of Stroke volume index > 35 cc/m^2. Mitral Valve Moderate MAC. Moderate thickening and calcification of the mitral leaflets noted. Trace MR. There is a gradient of 4 mm Hg across the mitral valve at heart rate of 71 bpm secondary to the presenceof the moderate MAC. Tricuspid Valve Normal tricuspid valve structure. Mild tricuspid regurgitation. Estimated peak systolicPA pressure is 30- 35 mmHg (normal range) . Pulmonic Valve Normal PV structure and function by limited views and Doppler. Aorta Aortic root size (SInus of Valsalva diameter) is normal . Pericardium Prominent pericardial fat pad noted. No pericardial effusion. IVC/SVC/PA/PV/Pleural The estimated RA pressure by IVC dynamics 5-10mmHg . Chambers/Structures Left Atrium LA Dimension: 3.8 cm LA Area: 19.95 cm^2 LA Volume: 75.79 ml LA Vol. Index: 37 ml/m^2 Left Ventricle LVIDd: 4.87 cm LVEDV:111.04 ml LV Septum Diastolic: 1.4 cm LV PW Diastolic: 1.1 cm LVEDV Weiss's:83.13 ml LVESV Weiss's:30.71 ml LVEF Weiss's: 62.4 % LVEDVI: 41 ml/m^2 LVESVI: 15 ml/m^2 LVOT Diameter: 2.07 cm Right Ventricle RV Diast Dim.: 3.8 cm RV Systolic Pressure: 32.73 mmHg TAPSE: 2.01 cm Aorta Ao Root S of Inna.: 3.06 cm Doppler/Quantitative Measurements Mitral Valve MV Peak E-Wave: 1.11 m/s MV Peak A-Wave: 1.24 m/s E/A Ratio: 0.89 Mean Velocity: 0.78 m/s Peak Gradient: 4.92 mmHg Mean Gradient: 2.78 mmHg Deceleration Time: 297.6 msec Area (continuity): 1.85 cm^2 MV VTI: 40.65 cm MV Hamilton. Peak: 1.3 m/s Tissue Doppler E' Septal Velocity: 0.04 m/s E/E': 27.58 E' Lateral Velocity: 0.06 m/s Aortic Valve Peak Velocity: 1.94 m/s Mean Velocity: 1.33 m/s Peak Gradient: 15.1 mmHg Mean Gradient: 8 mmHg AV Area (continuity): 1.74 cm^2 AV VTI: 43.22 cm AV DVI: 0.52 LVOT Peak Velocity: 1.02 m/s Peak Gradient: 4.17 mmHg Mean Velocity: 0.65 m/s Mean Gradient: 1.96 mmHg LVOT Diameter: 2.07 cm LVOT VTI: 22.4 cm LVOT Area: 3.37 cm^2 LVOT SV:75.35 ml LVOT CO: 5.65 l/min LVOT CI: 2.77 l/min/m^2 Tricuspid Valve Estimated RAP:10 mmHg TR Velocity: 2.38 m/s TR Gradient: 22.73 mmHg Pulmonic Valve Estimated PASP: 32.73 mmHgCHI Presbyterian Intercommunity HospitalPOCT- GLUCOSE [id number] 07:06:00 Test Item Value Reference Range Interpretation Comments POC-GLUCOSE METER 87 mg/dL 70-110 : TESTED A T [facility] (FERNANDORODOLFO) (test code = [place], 5158) [address]: Aromatherapist/Techni tigre ID = [id number] for HEBERT FoleyV) [facility] BASIC METABOLIC [id number] 04:37:00 Test Item Value Reference Range Interpretation Comments SODIUM (BEAKER) 140 meq/L 136-145 (test code = 381) POTASSIUM (BEAKER) 3.6 meq/L 3.5-5.1 (test code = 379) CHLORIDE (BEAKER) 107 meq/L 98-107 (test code = 382) CO2 (BEAKER) (test 27 meq/L 22-29 code = 355) BLOOD UREA NITROGEN 15 mg/dL 7-21 (BEAKER) (test code = 354) CREATININE (BEAKER) 0.72 mg/dL 0.57-1.25 (test code = 358) GLUCOSE RANDOM 116 mg/dL 70-105 H (BEAKER) (test code = 652) CALCIUM (BEAKER) 8.4 mg/dL 8.4-10.2 (test code = 697) EGFR (BEAKER) (test 80 mL/min/1.73 ESTIMA RORY GFR IS code = 1092) sq m NOT ACCURATE CREATININE CLEARANCE IN PREDICTING GLOMERULAR FILTRATION RATE . ESTIMATED GFR I S NOT APPLICABLE FOR DIALYSIS PATIEN TS. Aromatherapist ID - ALEKSEY [id number] 04:37:00 Test Item Value Reference Range Interpretation Comments MAGNESIUM (BEAKER) (test code = 1.6 mg/dL 1.6-2.6 627) Aromatherapist ID - ALEKSEY [id number] 04:37:00 Test Item Value Reference Range Interpretation Comments PHOSPHORUS (BEAKER) (test code = 4.0 mg/dL 2.3-4.7 604) Aromatherapist ID - ALEKSEY MCBC W/PLT COUNT & AUTO [id number] 03:55:00 Test Item Value Reference Range Interpretation Comments WHITE BLOOD CELL COUNT (BEAKER) 13.3 K/ L 3.5-10.5 H (test code = 775) RED BLOOD CELL COUNT (BEAKER) 3.08 M/ L 3.93-5.22 L (test code = 761) HEMOGLOBIN (BEAKER) (test code = 9.7 GM/DL 11.2-15.7 L 410) HEMATOCRIT (BEAKER) (test code = 30.3 % 34.1-44.9 L 411) MEAN CORPUSCULAR VOLUME (BEAKER) 98.4 fL 79.4-94.8 H (test code = 753) MEAN CORPUSCULAR HEMOGLOBIN 31.5 pg 25.6-32.2 (BEAKER) (test code = 751) MEAN CORPUSCULAR HEMOGLOBIN CONC 32.0 GM/DL 32.2-35.5 L (BEAKER) (test code = 752) RED CELL DISTRIBUTION WIDTH 13.9 % 11.7-14.4 (BEAKER) (test code = 412) PLATELET COUNT (BEAKER) (test 310 K/CU MM 150-450 code = 756) MEAN PLATELET VOLUME (BEAKER) 9.6 fL 9.4-12.3 (test code = 754) NUCLEATED RED BLOOD CELLS 0 /100 WBC 0-0 (BEAKER) (test code = 413) NEUTROPHILS RELATIVE PERCENT 74 % (BEAKER) (test code = 429) LYMPHOCYTES RELATIVE PERCENT 19 % (BEAKER) (test code = 430) MONOCYTES RELATIVE PERCENT 6 % (BEAKER) (test code = 431) EOSINOPHILS RELATIVE PERCENT 0 % (BEAKER) (test code = 432) BASOPHILS RELATIVE PERCENT 0 % (BEAKER) (test code = 437) NEUTROPHILS ABSOLUTE COUNT 9.80 K/ L 1.56-6.13 H (BEAKER) (test code = 670) LYMPHOCYTES ABSOLUTE COUNT 2.51 K/ L 1.18-3.74 (BEAKER) (test code = 414) MONOCYTES ABSOLUTE COUNT (BEAKER) 0.82 K/ L 0.24-0.36 H (test code = 415) EOSINOPHILS ABSOLUTE COUNT 0.03 K/ L 0.04-0.36 L (BEAKER) (test code = 416) BASOPHILS ABSOLUTE COUNT (BEAKER) 0.05 K/ L 0.01-0.08 (test code = 417) IMMATURE GRANULOCYTES-RELATIVE 0 % 0-1 PERCENT (BEAKER) (test code = 2801) POCT-GLUCOSE [id number] 23:44:00 Test Item Value Reference Range Interpretation Comments POC-GLUCOSE METER 129 mg/dL 70-110 H : TESTED A T [facility] (BEAKER) (test code = [place], 1538) [address]: Aromatherapist/Techni tigre ID = [id number] for MARLENY DELVALLE BRIDGER LACTIC ACID, [id number] 17:57:00 Test Item Value Reference Range Interpretation Comments LACTATE BLOOD 0.8 mmol/L 0.5-2.2 Specimen moder ately ARTERIAL (2) (BEAKER) hemoly zed (test code = 2874) Aromatherapist ID - DBBLOOD GAS, [id number] 17:43:00 Test Item Value Reference Range Interpretation Comments PH ARTERIAL (BEAKER) (test code = 7.34 7.35-7.45 L 383) PCO2 ARTERIAL (BEAKER) (test code 49 mm Hg 35-45 H = 384) PO2 ARTERIAL (BEAKER) (test code 80 mm Hg 80-90 = 385) O2 SATURATION ARTERIAL (BEAKER) 95.2 % 96.0-97.0 L (test code = 386) HCO3 ARTERIAL (BEAKER) (test code 26 mmol/L 21-29 = 388) BASE EXCESS ARTERIAL (BEAKER) -0.8 mmol/L -2.0-3.0 (test code = 387) PATIENT TEMPERATURE (BEAKER) 36.6 (test code = 1818) FIO2 (BEAKER) (test code = 1819) 36.0 Urinalysis w/Microscopic + Reflex to [id number] 16:52:00 Test Item Value Reference Range Interpretation Comments Color, UA (test code Yellow = 5778-6) Clarity, UA (test Clear code = 5767-9) Specific [place], UA 1.027 1.001-1.035 (test code = 5811-5) pH, UA (test code = 5.5 5.0-8.0 5803-2) Protein, UA (test 10 mg/dL Negative A code = 29812-8) Glucose, UA (test Negative Negative code = 365) Ketones, UA (test Trace Negative A code = 2514-8) Bilirubin, UA (test Negative Negative code = 20585-0) Blood, UA (test code Negative Negative = 26469-0) Nitrite, UA (test Negative Negative code = 5802-4) Leukocytes, UA (test Negative Negative code = 5799-2) Urobilinogen, UA 0.2 mg/dL 0.2-1 (test code = 12711-7) RBC, UA (test code = 2 See_Comment [Autom ated 56363-4) message] The system which generated this result transmit rory reference range : /HPF. The reference range was not used to interpret this result as normal/abnormal . WBC, UA (test code = 4 See_Comment [Autom ated 5821-4) message] The system which generated this result transmit rory reference range : /HPF. The reference range was not used to interpret this result as normal/abnormal . Bacteria, UA (test Rare code = 92372-7) Mucus (test code = Rare 8247-9) Squam Epithel, UA 1 See_Comment [Automate d (test code = 23861-1) messag e] The system which generated this result transmit rory reference range : /HPF. The reference range was not used to interpret this result as normal/abnormal . Hyaline Casts, UA 12 See_Comment [Automate d (test code = 16012-8) messag e] The system which generated this result transmit rory reference range : /LPF. The reference range was not used to interpret this result as normal/abnormal . Crystals, Urine (test Rare code = 63812-8) Specimen Source (test code = 2795) STAR (test code = STAR) Aromatherapist ID - [auto]Aromatherapist ID - tech Lab Interpretation Abnormal (test code = 21159-7) [facility] [id number] 16:52:00 Test Item Value Reference Range Interpretation Comments COLOR (BEAKER) (test code = 470) Yellow CLARITY (BEAKER) (test code = 469) Clear SPECIFIC GRAVITY UA (BEAKER) (test 1.027 1.001-1.035 code = 468) PH UA (BEAKER) (test code = 467) 5.5 5.0-8.0 PROTEIN UA (BEAKER) (test code = 10 mg/dL Negative A 464) GLUCOSE UA (BEAKER) (test code = Negative Negative 365) KETONES UA (BEAKER) (test code = Trace Negative A 371) BILIRUBIN UA (BEAKER) (test code = Negative Negative 462) BLOOD UA (BEAKER) (test code = 461) Negative Negative NITRITE UA (BEAKER) (test code = Negative Negative 465) LEUKOCYTE ESTERASE UA (BEAKER) Negative Negative (test code = 466) UROBILINOGEN UA (BEAKER) (test code 0.2 mg/dL 0.2-1.0 = 463) RBC UA (BEAKER) (test code = 519) 2 /HPF WBC UA (BEAKER) (test code = 520) 4 /HPF BACTERIA (BEAKER) (test code = 517) Rare MUCUS (BEAKER) (test code = 1574) Rare SQUAMOUS EPITHELIAL (BEAKER) (test 1 /HPF code = 516) HYALINE CASTS (BEAKER) (test code = 12 /LPF 514) CRYSTALS, URINE (BEAKER) (test code Rare = 1521) SOURCE(BEAKER) (test code = 2795) Aromatherapist ID - [auto]Aromatherapist ID - [id number] 16:39:00 Test Item Value Reference Range Interpretation Comments Cortisol, Total (test 85.0 ug/dL 3.7-19.4 H code = 2755) STAR (test code = STAR) Aromatherapist ID - DBOperator ID - DB Lab Interpretation (test Abnormal code = 17002-6) [facility] 16:39:00 Test Item Value Reference Range Interpretation Comments CORTISOL, TOTAL (BEAKER) (test 85.0 ug/dL 3.7-19.4 H code = 2755) Aromatherapist ID - DBOperator ID - DBTSH/Free T4 If [id number] 16:06:00 Test Item Value Reference Range Interpretation Comments TSH (test code = 0.749 See_Comment [Automated 25936-1) message] The system which generated this result transmit rory reference range : 0.350 - 4.940 uIU/mL. The reference range was not used to interpret this result as normal/abnormal . STAR (test code = STAR) Aromatherapist ID - DB Lab Interpretation Normal (test code = 34539-3) [facility] T4 IF [id number] 16:06:00 Test Item Value Reference Range Interpretation Comments THYROID STIMULATING HORMONE 0.749 uIU/mL 0.350-4.940 (BEAKER) (test code = 772) Aromatherapist ID - DBComprehensive metabolic [id number] 15:34:00 Test Item Value Reference Range Interpretation Comments Protein, Total (test 5.8 See_Comment L Specime n slightly code = 2885-2) hemolyzed [Automated message] The system which generated this result transmit rory reference range : 6.0 - 8.3 gm/dL . The reference range was not u sed to interpret th is result as normal/abnormal . Albumin (test code = 3.2 g/dL 3.5-5 L Specime n slightly 17915-5) hemolyzed Alkaline Phosphatase 43 U/L 40-150 (test code = 6768-6) Total Bilirubin (test 0.5 mg/dL 0.2-1.2 Specim en slightly code = 1975-2) hemolyzed Sodium (test code = 141 meq/L 137-548 3074-2) Potassium (test code 4.0 meq/L 3.5-5.1 Specime n slightly = 2823-3) hemolyzed Chloride (test code = 108 meq/L 98-107 H 2074-0) CO2 (test code = 26 meq/L 22-29 8-9) BUN (test code = 13 mg/dL 7-21 3094-0) Creatinine (test code 0.92 mg/dL 0.57-1.25 Specim en slightly = 2160-0) hemolyzed Glucose (test code = 152 mg/dL 70-105 H 2345-7) Calcium (test code = 9.3 mg/dL 8.4-10.2 28925-0) AST (test code = 22 U/L 5-34 Specimen sl ightly 1920-8) hemolyzed ALT (test code = 8 U/L 6-55 Specimen sl ightly 1742-6) hemolyzed EGFR (test code = 60 mL/min/1.[place] [address]-4) NOT ACCURATE CREATININE CLEARANCE IN PREDICTING GLOMERULAR FILTRATION RATE . ESTIMATED GFR I S NOT APPLICABLE FOR DIALYSIS PATIEN TS. STAR (test code = STAR) Aromatherapist ID - DB Lab Interpretation Abnormal (test code = 39376-2) [facility] Test Item Value Reference Range Interpretation Comments MAGNESIUM (BEAKER) 1.7 mg/dL 1.6-2.6 Specimen slightly (test code = 627) hemolyzed Aromatherapist ID - [id number] 15:34:00 Test Item Value Reference Range Interpretation Comments PHOSPHORUS (BEAKER) 3.9 mg/dL 2.3-4.7 Specimen slightly (test code = 604) hemolyzed Aromatherapist ID - DBCOMPREHENSIVE METABOLIC [id number] 15:34:00 Test Item Value Reference Range Interpretation Comments TOTAL PROTEIN 5.8 gm/dL 6.0-8.3 L Specimen sligh tly (BEAKER) (test code = hemoly zed 770) ALBUMIN (BEAKER) 3.2 g/dL 3.5-5.0 L Specimen sl ightly (test code = 1145) hemolyzed ALKALINE PHOSPHATASE 43 U/L 40-150 (BEAKER) (test code = 346) BILIRUBIN TOTAL 0.5 mg/dL 0.2-1.2 Specimen sli ghtly (BEAKER) (test code = hemoly zed 377) SODIUM (BEAKER) (test 141 meq/L 136-145 code = 381) POTASSIUM (BEAKER) 4.0 meq/L 3.5-5.1 Specimen slightly (test code = 379) hemolyzed CHLORIDE (BEAKER) 108 meq/L 98-107 H (test code = 382) CO2 (BEAKER) (test 26 meq/L 22-29 code = 355) BLOOD UREA NITROGEN 13 mg/dL 7-21 (BEAKER) (test code = 354) CREATININE (BEAKER) 0.92 mg/dL 0.57-1.25 Specimen slightly (test code = 358) hemolyzed GLUCOSE RANDOM 152 mg/dL 70-105 H (BEAKER) (test code = 652) CALCIUM (BEAKER) 9.3 mg/dL 8.4-10.2 (test code = 697) AST (SGOT) (BEAKER) 22 U/L 5-34 Specimen slightly (test code = 353) hemolyzed ALT (SGPT) (BEAKER) 8 U/L 6-55 Specimen slightly (test code = 347) hemolyzed EGFR (BEAKER) (test 60 mL/min/1.73 ESTIMA RORY GFR IS code = 1092) sq m NOT ACCURATE CREATININE CLEARANCE IN PREDICTING GLOMERULAR FILTRATION RATE . ESTIMATED GFR I S NOT APPLICABLE FOR DIALYSIS PATIEN TS. Aromatherapist ID - DBPT/[id number] 15:30:00 Test Item Value Reference Interpretation Comments Range Protime (test code = 13.9 See_Comment [Autom ated 5902-2) message] The system which generated this result transmitted reference range : 11.9 - 14.2 seconds. The reference range was not used to interpret this result as normal/abnormal . INR (test code = 1.11 See_Comment [Automated 4431-6) message] The system which generated this result transmitted reference range : <=5.90. The reference range was not used to interpret this result as normal/abnormal . PTT (test code = 24.3 See_Comment [Automated 52538-6) message] The system which generated this result transmitted reference range : 22.5 - 36.0 seconds. The reference range was not used to interpret this result as normal/abnormal . STAR (test code = Effective 12/04/2018: STAR) PT Reference Range ChangeNew: 11.9-14.2 Previous: 11.7-14.7 RECOMMENDED COUMADIN/WARFARIN INR THERAPY RANGESSTANDARD DOSE: 2.0-3.0 Includes: PROPHYLAXIS for venous thrombosis, systemic embolization; TREATMENT for venous thrombosis and/or pulmonary embolus.HIGH RISK: Target INR is 2.5-3.5 for patients wiht mechanical heart valves. Lab Interpretation Normal (test code = 29177-8) [facility]PT/[id number] 15:30:00 Test Item Value Reference Range Interpretation Comments PROTIME (BEAKER) (test code = 13.9 seconds 11.9-14.2 759) INR (BEAKER) (test code = 370) 1.11 <=5.90 PARTIAL THROMBOPLASTIN TIME 24.3 seconds 22.5-36.0 (BEAKER) (test code = 760) Effective 12/04/2018: PT Reference Range ChangeNew: 11.9-14.2 Previous: 11.7- 14.7RECOMMENDED COUMADIN/WARFARIN INR THERAPY RANGESSTANDARD DOSE: 2.0-3.0 Includes: PROPHYLAXIS for venous thrombosis, systemic embolization; TREATMENT for venous thrombosis and/or pulmonary embolus.HIGH RISK: Target INR is2.5-3.5 for patients wiht mechanical heart valves.PROTHROMBIN TIME/[id number] 15:29:00 Test Item Value Reference Range Interpretation Comments PROTIME (BEAKER) (test code = 13.9 seconds 11.9-14.2 759) INR (BEAKER) (test code = 370) 1.11 <=5.90 Effective 12/04/2018: PT Reference Range ChangeNew: 11.9-14.2 Previous: 11.7- 14.7RECOMMENDED COUMADIN/WARFARIN INR THERAPY RANGESSTANDARD DOSE: 2.0-3.0 Includes: PROPHYLAXIS for venous thrombosis, systemic embolization; TREATMENT for venous thrombosis and/or pulmonary embolus.HIGH RISK: Target INR is2.5-3.5 for patients wiht mechanical heart valves.LACTIC ACID, [id number] 15:26:00 Test Item Value Reference Range Interpretation Comments LACTATE BLOOD 0.9 mmol/L 0.5-2.2 Specimen moder ately ARTERIAL (2) (BEAKER) hemoly zed (test code = 2874) Aromatherapist ID - DBRAD, CHEST, 1 VIEW, NON [id number] 15:22:00For chest painReason for exam:->post-operativeShould this be performed at the bedside?->YesL[facility] : 1950 Sex: FFINAL REPORT CLINICAL HISTORY: post-operative TECHNIQUE: 1 view of the chest. COMPARISON: None IMPRESSION: There are mildly prominent lung markings bilaterally including linear opacities at both lung bases. There are no significant appearing effusions. The cardiomediastinal silhouette is magnified by technique. There is resorption/resection involving the distal third of the right clavicle. There is a right humeral head suture anchor. Signed: Juan Parekh MDReport Verified Date/Time: 07/19/2020 15:22:42 Reading Location: [facility] Radiology Reading Room CBC W/PLT COUNT & AUTO [id number] 15:19:00 Test Item Value Reference Range Interpretation Comments WHITE BLOOD CELL COUNT (BEAKER) 14.4 K/ L 3.5-10.5 H (test code = 775) RED BLOOD CELL COUNT (BEAKER) 3.62 M/ L 3.93-5.22 L (test code = 761) HEMOGLOBIN (BEAKER) (test code = 11.4 GM/DL 11.2-15.7 410) HEMATOCRIT (BEAKER) (test code = 34.6 % 34.1-44.9 411) MEAN CORPUSCULAR VOLUME (BEAKER) 95.6 fL 79.4-94.8 H (test code = 753) MEAN CORPUSCULAR HEMOGLOBIN 31.5 pg 25.6-32.2 (BEAKER) (test code = 751) MEAN CORPUSCULAR HEMOGLOBIN CONC 32.9 GM/DL 32.2-35.5 (BEAKER) (test code = 752) RED CELL DISTRIBUTION WIDTH 14.0 % 11.7-14.4 (BEAKER) (test code = 412) PLATELET COUNT (BEAKER) (test 415 K/CU MM 150-450 code = 756) MEAN PLATELET VOLUME (BEAKER) 9.9 fL 9.4-12.3 (test code = 754) NUCLEATED RED BLOOD CELLS 0 /100 WBC 0-0 (BEAKER) (test code = 413) NEUTROPHILS RELATIVE PERCENT 81 % (BEAKER) (test code = 429) LYMPHOCYTES RELATIVE PERCENT 13 % (BEAKER) (test code = 430) MONOCYTES RELATIVE PERCENT 4 % (BEAKER) (test code = 431) EOSINOPHILS RELATIVE PERCENT 1 % (BEAKER) (test code = 432) BASOPHILS RELATIVE PERCENT 1 % (BEAKER) (test code = 437) NEUTROPHILS ABSOLUTE COUNT 11.62 K/ L 1.56-6.13 H (BEAKER) (test code = 670) LYMPHOCYTES ABSOLUTE COUNT 1.89 K/ L 1.18-3.74 (BEAKER) (test code = 414) MONOCYTES ABSOLUTE COUNT (BEAKER) 0.58 K/ L 0.24-0.36 H (test code = 415) EOSINOPHILS ABSOLUTE COUNT 0.15 K/ L 0.04-0.36 (BEAKER) (test code = 416) BASOPHILS ABSOLUTE COUNT (BEAKER) 0.08 K/ L 0.01-0.08 (test code = 417) IMMATURE GRANULOCYTES-RELATIVE 1 % 0-1 PERCENT (BEAKER) (test code = 2801) Platelet [id number] 14:43:00 Test Item Value Reference Range Interpretation Comments Platelets (test code 428 See_Comment [Autom ated = 777-3) message] The system which generated this result transmit rory reference range : 150 - 450 K/CU MM. The reference range was not u sed to interpret th is result as normal/abnormal . STAR (test code = STAR) Aromatherapist ID - [id number] Lab Interpretation Normal (test code = 20577-3) [facility]PLATE[facility] [id number] 14:43:00 Test Item Value Reference Range Interpretation Comments PLATELET COUNT (BEAKER) (test 428 K/CU MM 150-450 code = 756) Aromatherapist ID - [id number]-STAT [id number] 14:39:00 Test Item Value Reference Range Interpretation Comments GLUCOSE RANDOM (BEAKER) (test code 157 mg/dL 70-110 H = 652) Only if arterial line present.HGB/HCT (H&H) - STAT [id number] 14:39:00 Test Item Value Reference Range Interpretation Comments HEMOGLOBIN (BEAKER) (test code = 12.0 GM/DL 12.0-15.0 410) HEMATOCRIT (BEAKER) (test code = 35.0 % 36.0-45.0 L 411) Only if arterial line present.BLOOD GAS, [id number] 14:39:00 Test Item Value Reference Range Interpretation Comments PH ARTERIAL (BEAKER) (test code = 7.33 7.35-7.45 L 383) PCO2 ARTERIAL (BEAKER) (test code 49 mm Hg 35-45 H = 384) PO2 ARTERIAL (BEAKER) (test code 76 mm Hg 80-90 L = 385) O2 SATURATION ARTERIAL (BEAKER) 95.1 % 96.0-97.0 L (test code = 386) HCO3 ARTERIAL (BEAKER) (test code 26 mmol/L 21-29 = 388) BASE EXCESS ARTERIAL (BEAKER) -1.2 mmol/L -2.0-3.0 (test code = 387) PATIENT TEMPERATURE (BEAKER) 35.7 (test code = 1818) FIO2 (BEAKER) (test code = 1819) 44.0 Only if arterial line present.CALCIUM, [id number] 14:39:00 Test Item Value Reference Range Interpretation Comments CALCIUM IONIZED (BEAKER) (test 1.35 mmol/L 1.12-1.27 H code = 698) PH, BLOOD (BEAKER) (test code = 7.31 1810) Sodium Na-Stat [id number] 14:37:00 Test Item Value Reference Range Interpretation Comments Sodium (test code = 138 meq/L 029-174 0294-2) STAR (test code = STAR) Only if arterial line present. Lab Interpretation (test Normal code = 12383-8) [facility] [id number] 14:37:00 Test Item Value Reference Range Interpretation Comments SODIUM (BEAKER) (test code = 381) 138 meq/L 136-145 Only if arterial line present.POTASSIUM-STAT [id number] 14:37:00 Test Item Value Reference Range Interpretation Comments POTASSIUM (BEAKER) (test code = 3.5 meq/L 3.6-5.5 L 379) Only if arterial line present.ABORH, [id number] 09:19:00 Test Item Value Reference Range Interpretation Comments ABO Grouping (test code = 2588) O Rh Factor (test code = 2589) POS [facility])2020-07-16 14:33:00 Test Item Value Reference Range Interpretation Comments SARS-COV2/RT-PCR (test Negative Not Detected, Negative, code = 0816627) See external report for linked test SARS-COV-[address] [facility] (test code = 2141808) Negative result for this test determines that SARS-CoV-2 RNA was not present in the specimen above the Limit of Detection (LOD). However, Negative results do not preclude SARS-CoV-2 infection and should not be used as the sole basis for treatment or patient management decisions. Negative results mustbe combined with clinical observations, patient history, and epidemiological information. A false negative result may occur if a specimen is improperly collected, transported or handled. A false negative result should be considered if patient's recent exposures or clinical presentation indicate that COVID-19 (SARS-CoV-2) is likely and diagnostic tests for other causes of illness are negative. Re-testing should be considered in cases of suspected false negatives.The limit of detection for this assay is 800 copies/mL.This SARS CoV-2 test is a real-time RT-PCR test intended for the qualitative detection of nucleic acid from SARS-CoV-2 in a nasopharyngeal swab specimen collected from individuals susp ected of COVID-19 by their healthcare provider.This test has not been Food and Drug Administration (FDA) cleared or approved. This is a modified version of an approved Emergency Use Authorization (EUA) and is in the process of review by the FDA. Once authorized by the FDA, the issued EUA will be effective until the declaration that circumstances exist justifying the authorization of the emergency use of in vitro diagnostic tests for detection and/or diagnosis of COVID-19 is terminated under Section 564(b)(2) of the Act or the EUA is revoked under Section 564(g) of the Act.Fact Sheet for Healthcare Providers:https://www.[employer].CallMD/sites/default/files/product/documents/Fact_Shee c_JW_Glygnnzbp_Hgoo_IXOB-DfD-1.pdfFact Sheet for Healthcare Patients:https://www.[employer].com/sites/default/files/product/ documents/Sfxh_Avhra_Bdjwoamt_Eyzx_KKQK-LzM-2.pdfPerforming Laboratory:[facility], [place] [address]Qjsf and screen, automated ([facility])2020-07-16 10:31:00 Test Item Value Reference Range Interpretation Comments ABO/RH AUTOMATED (JOHNY) (test O POSITIVE code = 2260) Ab Scrn (test code = 890-4) NEGATIVE [facility]
[2020-09-20 17:00] LABS: Protime INR 1.09
[2020-09-20 17:01] LABS: Absolute Lymphocytes (CBC) 1.9 K/uL (0.7-4.9); Basophils % 1.1 % (0-1.3); Hematocrit 33.1 % (36.0-45.0); Lymphocytes % 23.4 % (15.3-44.8); MPV 7.8 fL (7.6-11.3); RBC Red Blood Cell Count 3.62 M/uL (3.86-4.86)
[2020-09-20 17:18] LABS: ALT/SGPT 14 U/L (12-78); AST/SGOT 19 U/L (15-37); Albumin 3.6 g/dL (3.4-5.0); Alkaline Phosphatase 63 U/L (45-117); BUN Blood Urea Nitrogen 8 mg/dL (7-18); Bicarbonate 26 mmol/L (21-32); Bilirubin Direct 0.1 mg/dL (0-0.2); Bilirubin Total 0.3 mg/dL (0.2-1.0); Glucose Level 93 mg/dL (74-106); Lipase 137 U/L (73-393); NT PRO-BNP 242 pg/mL (<125); Potassium 3.8 mmol/L (3.5-5.1); Protein, Total 7.4 g/dL (6.4-8.2); Sodium Level 141 mmol/L (136-145); Troponin (Emerg Dept Use Only) < 0.02 ng/mL (0.0-0.045)
--- NOTE | 2020-09-20 17:43 | RAD REPORT ---
EXAM DESCRIPTION: RAD - Chest Pa And Lat (2 Views) - 09/20/2020 2:40 pm CLINICAL HISTORY: Cough;SOB COMPARISON: Two view chest June 2020 TECHNIQUE: Frontal and lateral views of the chest were obtained. FINDINGS: The lungs are fibrotic as a baseline. Focal opacification is present just lateral to the l eft heart border not clearly seen on the prior study. In an acute clinical setting focal infiltrate i s likely. Definitive correlate is not seen on the lateral projection. The patient does have small mike ateral pleural effusions new from June. Heart size is normal and central vasculature is within normal limits. No pneumothorax. No acute bony finding noted. No aortic abnormality. IMPRESSION: Small focal infiltrate versus new nodular mass left lung base. Small bilateral pleural effusions with chronic interstitial lung disease present. Repeat imaging in 4-6 weeks would be recommended to re-evaluate for resolution of the left lung base finding
[2020-09-20] MEDS ORDERED: METHYLPREDNISOLONE 125 MG INJ ONE (18:03)
[2020-09-20] MEDS ORDERED: HYDROCODONE/CHLORPHEN 5 ML/OSYR ONE (18:04)
[2020-09-20] MEDS ORDERED: AZITHROMYCIN 250 MG TAB ONE (18:04)
[2020-09-20] MEDS ORDERED: IPRATROPIUM BROM 0.5MG/2.5ML ONE (18:04)
[2020-09-20] MEDS ORDERED: NA CHLORIDE 0.9% 1,000 ML ONE (18:05)
[2020-09-20] MEDS ORDERED: predniSONE 20 MG TAB ONE (18:05)
[2020-09-20] MEDS ORDERED: CEFTRIAXONE/SWI 1gm 1 GM/10 ML SYR ONE (18:05)
[2020-09-20] MEDS ORDERED: LEVALBUTEROL 1.25 MG/3 ML NEB ONE (18:05)
--- NOTE | 2020-09-20 18:20 | ER ---
Nurse's Notes [facility] Name: Susana Jaffe Age: 70 yrs Sex: Female : 1950 Arrival Date: 09/20/2020 Time: 12:53 Bed 7 Private MD: Jarad Ruano Diagnosis: Dyspnea;Bronchitis, not specified as acute or chronic;Cough;Stridor-resolved;Solitary pulmonary nodule Presentation: 09/20 13:06 Chief complaint: Patient states: Been sick for a month now. Had a carotid surgery, L ca1 side on 07/23/2020. Hasn't felt right since 2 weeks after the surgery. Been coughing, SOB with exertion. Denies fever. Coronavirus screen: Client denies travel out of the [place] in the last 14 days. cough unrelated to allergies, shortness of breath, Client presents with at least one sign or symptom that may indicate coronavirus-19. Standard/surgical mask placed on the client. Provider contacted for isolation considerations. Ebola Screen: Patient negative for fever greater than or equal to 101.5 degrees Fahrenheit, and additional compatible Ebola Virus Disease symptoms Patient denies exposure to infectious person. Patient denies travel to an Ebola-affected area in the 21 days before illness onset. No symptoms or risks identified at this time. Initial Sepsis Screen: Does the patient meet any 2 criteria? No. Patient's initial sepsis screen is negative. Does the patient have a suspected source of infection? No. Patient's initial sepsis screen is negative. Risk Assessment: Do you want to hurt yourself or someone else? Patient reports no desire to harm self or others. Onset of symptoms was September 20, 2020. 13:06 Method Of Arrival: Ambulatory ca1 13:06 Acuity: CINDY 3 ca1 Historical: - Allergies: 13:13 Iodine; ca1 - Home Meds: 13:13 atorvastatin oral oral [Active]; Furosemide Oral [Active]; Klor-Con 10 Oral [Active]; ca1 Tramadol Oral [Active]; Metoprolol Tartrate Oral [Active]; aspirin 81 mg Oral TbEC 1 tab once daily [Active]; clopidogrel 75 mg oral tab 1 tab once daily [Active]; fenofibrate Oral [Active]; - PMHx: 13:13 Cancer, Breast; Hyperlipidemia; Hypertension; Hypothyroidism; ruptured colon; ca1 - PSHx: 13:13 Tonsillectomy; Hysterectomy; Thyroidectomy; Appendectomy; Cholecystectomy; colon ca1 resection; Mastectomy Left; Right shoulder; back - NO MRI; Carotid surgery; - Immunization history:: Pneumococcal vaccine is not up to date, Flu vaccine is not up to date. - Social history:: Smoking status: Patient/guardian denies using tobacco, Stopped _ months ago 2. - Family history:: not pertinent. Screenin:45 Abuse screen: Denies threats or abuse. Denies injuries from another. Nutritional jl7 screening: No deficits noted. Tuberculosis screening: No symptoms or risk factors identified. Fall Risk IV access (20 points). Assessment: 16:30 General: Appears in no apparent distress. uncomfortable, Behavior is calm, cooperative, [facility] appropriate for age. Pain: Complains of pain in Chest wall and ribs from coughing. Neuro: Level of Consciousness is awake, alert, obeys commands, Oriented to person, place, time, situation. Cardiovascular: Heart tones present Rhythm is regular. Respiratory: Reports cough that is productive, persistent Airway is patent Respiratory effort is even, unlabored, Respiratory pattern is regular, symmetrical. Derm: Skin is pink, warm \T\ dry. 17:30 Reassessment: Patient appears in no apparent distress at this time. No changes from [facility] previously documented assessment. Patient and/or family updated on plan of care and expected duration. Pain level reassessed. Patient is alert, oriented x 3, equal unlabored respirations, skin warm/dry/pink. 18:15 Reassessment: Pt began violently coughing, stridor noted, Dr. Kurtz notified and at [facility] bedside at this time. 20:09 Reassessment: [phone]. ea 21:09 Reassessment: Patient and/or family updated on plan of care and expected duration. Pain ea level reassessed. Patient is alert, oriented x 3, equal unlabored respirations, skin warm/dry/pink. Pt admitted to second floor, report given to receiving nurse. Pt left ED via wheelchair per lead technologist in cytogenetics. Pt tolerating well. Vital Signs: 13:06 BP 130 / 96; Pulse 102; Resp 18 S; Temp 98.1(TE); Pulse Ox 95% on R/A; Weight 77.11 kg ca1 (R); Height 5 ft. 6 in. (167.64 cm) (R); Pain 0/10; 16:45 BP 151 / 72; Pulse 87; Resp 15 S; Pulse Ox 97% on R/A; jl7 17:35 BP 160 / 78; Pulse 93; Resp 25; Pulse Ox 93% ; jl7 18:26 BP 145 / 74; Pulse 105; Resp 23 S; Pulse Ox 92% on R/A; jl7 20:30 BP 150 / 70; Pulse 99; Resp 18; Pulse Ox 95% ; ea 21:19 BP 148 / 72; Pulse 90; Resp 19; Temp 98.0; Pulse Ox 95% ; ea 13:06 Body Mass Index 27.44 (77.11 kg, 167.64 cm) ca1 ED Course: 12:53 Patient arrived in ED. am2 12:53 Jarad Ruano MD is Private Physician. am2 13:10 Triage completed. ca1 13:13 Arm band placed on right wrist. ca1 14:46 Chest Pa And Lat (2 Views) XRAY In Process Unspecified. EDMS 15:39 Oren Kurtz MD is Attending Physician. jovany 15:41 Salud Rae, RN is Primary Nurse. jl 16:45 Patient has correct armband on for positive identification. Bed in low position. Call [facility] light in reach. Side rails up X 1. absorption and adsorption engineer on. Pulse ox on. NIBP on. 16:45 Initial lab(s) drawn, by wa, sent to lab. EKG done, by ED staff, reviewed by Oren Kurtz MD. Inserted saline lock: 22 gauge in right forearm, using aseptic technique. Blood collected. 18:00 COVID swab sent to lab. jl7 18:19 Jarad Ruano MD is Hospitalizing Provider. jovany 20:24 No provider procedures requiring assistance completed. Patient admitted, IV remains in ea place. 20:36 Primary Nurse role handed off by Salud Rae, LINCOLN sg 21:09 Alia Miller, LINCOLN is Primary Nurse. ea Administered Medications: 18:00 Drug: Rocephin - (cefTRIAXone) 1 grams Route: IVPB; Infused Over: 30 mins; Site: right jl7 forearm; 18:03 Follow up: Response: No adverse reaction; IV Status: Completed infusion jl 18:00 Drug: Zithromax (azithromycin) 500 mg Route: PO; jl7 18:31 Follow up: Response: No adverse reaction 18:00 Drug: Tussionex Pennkinetic ER (chlorpheniramine-hydrocodone) 5 ml Route: PO; 18:30 Follow up: Response: No adverse reaction 18:00 Drug: NS 0.9% 1000 ml Route: IV; Rate: 75 ml/hr; Site: right forearm; 18:03 Drug: SOLU-Medrol 125 mg Route: IVP; Site: right forearm; 7 18:31 Follow up: Response: No adverse reaction 18:10 Drug: predniSONE 20 mg Route: PO; 18:31 Follow up: Response: No adverse reaction 18:15 Drug: Xopenex 2.5 mg Route: Inhalation; 18:15 Drug: AtroVENT Aerosol 0.5 mg Route: Inhalation; 18:16 Not Given (Duplicate Order): NS 0.9% 1000 ml IV at 125 ml/hr continuous jovany 20:25 Drug: Lovenox 75 mg Route: Sub-Q; Site: right lower abdomen; ea Outcome: 18:20 Decision to Hospitalize by Provider. jovany 20:24 Condition: stable ea 20:24 Instructed on the need for admit. 21:09 Admitted to Med/surg accompanied by tech, via wheelchair, room 213, with chart, Report ea called to Izabel TSARK 21:17 Patient left the ED. ea Signatures: Dispatcher [employer] EDMS Mor Guerrero RN RN sg Anderson, Corey, MD MD cha Leal, Jahala RN RN Aura Linares Elena, RN RN ea Acob, Cheryl, RN RN ca1
--- NOTE | 2020-09-20 18:20 | EDPHYS ---
Physician Documentation [facility] [place], [place] Name: Susana Jaffe Age: 70 yrs Sex: Female : 1950 Arrival Date: 09/20/2020 Time: 12:53 Bed 7 Private MD: Jarad Ruano ED Physician Oren Kurtz HPI: 09/20 17:06 This 70 yrs old Female presents to ER via Ambulatory with complaints of jovany Breathing Difficulty. 17:06 The patient has shortness of breath with light activity. Onset: The symptoms/episode jovany began/occurred 6 week(s) ago. Duration: The symptoms are continuous, and are steadily getting worse. The patient's shortness of breath is aggravated by supine position, is alleviated by sitting up. Associated signs and symptoms: The patient has no apparent associated signs or symptoms. Severity of symptoms: At their worst the symptoms were mild moderate in the emergency department the symptoms have improved mildly. The patient has not experienced similar symptoms in the past. Historical: - Allergies: 13:13 Iodine; ca1 - Home Meds: 13:13 atorvastatin oral oral [Active]; Furosemide Oral [Active]; Klor-Con 10 Oral [Active]; ca1 Tramadol Oral [Active]; Metoprolol Tartrate Oral [Active]; aspirin 81 mg Oral TbEC 1 tab once daily [Active]; clopidogrel 75 mg oral tab 1 tab once daily [Active]; fenofibrate Oral [Active]; - PMHx: 13:13 Cancer, Breast; Hyperlipidemia; Hypertension; Hypothyroidism; ruptured colon; ca1 - PSHx: 13:13 Tonsillectomy; Hysterectomy; Thyroidectomy; Appendectomy; Cholecystectomy; colon ca1 resection; Mastectomy Left; Right shoulder; back - NO MRI; Carotid surgery; - Immunization history:: Pneumococcal vaccine is not up to date, Flu vaccine is not up to date. - Social history:: Smoking status: Patient/guardian denies using tobacco, Stopped _ months ago 2. - Family history:: not pertinent. ROS: 17:06 Constitutional: Negative for fever, chills, and weight loss, Eyes: Negative for injury, jovany pain, redness, and discharge, ENT: Negative for injury, pain, and discharge, Neck: Negative for injury, pain, and swelling, Cardiovascular: Negative for chest pain, palpitations, and edema, Abdomen/GI: Negative for abdominal pain, nausea, vomiting, diarrhea, and constipation, Back: Negative for injury and pain, : Negative for injury, bleeding, discharge, and swelling, MS/Extremity: Negative for injury and deformity, Skin: Negative for injury, rash, and discoloration, Neuro: Negative for headache, weakness, numbness, tingling, and seizure, Psych: Negative for depression, anxiety, suicide ideation, homicidal ideation, and hallucinations, Allergy/Immunology: Negative for hives, rash, and allergies, Endocrine: Negative for neck swelling, polydipsia, polyuria, polyphagia, and marked weight changes, Hematologic/Lymphatic: Negative for swollen nodes, abnormal bleeding, and unusual bruising. 17:06 Respiratory: Positive for cough, "sounds productive". Exam: 17:06 Constitutional: This is a well developed, well nourished patient who is awake, alert, jovany and in no acute distress. Head/Face: Normocephalic, atraumatic. Eyes: Pupils equal round and reactive to light, extra-ocular motions intact. Lids and lashes normal. Conjunctiva and sclera are non-icteric and not injected. Cornea within normal limits. Periorbital areas with no swelling, redness, or edema. ENT: Nares patent. No nasal discharge, no septal abnormalities noted. Tympanic membranes are normal and external auditory canals are clear. Oropharynx with no redness, swelling, or masses, exudates, or evidence of obstruction, uvula midline. Mucous membranes moist. Neck: Trachea midline, no thyromegaly or masses palpated, and no cervical lymphadenopathy. Supple, full range of motion without nuchal rigidity, or vertebral point tenderness. No Meningismus. Chest/axilla: Normal chest wall appearance and motion. Nontender with no deformity. No lesions are appreciated. Cardiovascular: Regular rate and rhythm with a normal S1 and S2. No gallops, murmurs, or rubs. Normal PMI, no JVD. No pulse deficits. Abdomen/GI: Soft, non-tender, with normal bowel sounds. No distension or tympany. No guarding or rebound. No evidence of tenderness throughout. Back: No spinal tenderness. No costovertebral tenderness. Full range of motion. Female : Normal external genitalia. Skin: Warm, dry with normal turgor. Normal color with no rashes, no lesions, and no evidence of cellulitis. MS/ Extremity: Pulses equal, no cyanosis. Neurovascular intact. Full, normal range of motion. Neuro: Awake and alert, GCS 15, oriented to person, place, time, and situation. Cranial nerves II-XII grossly intact. Motor strength 5/5 in all extremities. Sensory grossly intact. Cerebellar exam normal. Normal gait. Psych: Awake, alert, with orientation to person, place and time. Behavior, mood, and affect are within normal limits. 17:06 Respiratory: the patient does not display signs of respiratory distress, Respirations: normal, no acute changes, Breath sounds: rhonchi, that are mild, are scattered, Respiratory rate: 18 17:12 Musculoskeletal/extremity: DVT Exam: No signs of deep vein thrombosis. no pain, no jovany swelling, no tenderness, negative Homans' sign noted on exam, no appreciated bluish discoloration, no erythema, no increased warmth. 17:12 ECG was reviewed by the Attending Physician. [facility] Vital Signs: 13:06 BP 130 / 96; Pulse 102; Resp 18 S; Temp 98.1(TE); Pulse Ox 95% on R/A; Weight 77.11 kg ca1 (R); Height 5 ft. 6 in. (167.64 cm) (R); Pain 0/10; 16:45 BP 151 / 72; Pulse 87; Resp 15 S; Pulse Ox 97% on R/A; jl7 17:35 BP 160 / 78; Pulse 93; Resp 25; Pulse Ox 93% ; jl7 18:26 BP 145 / 74; Pulse 105; Resp 23 S; Pulse Ox 92% on R/A; jl7 20:30 BP 150 / 70; Pulse 99; Resp 18; Pulse Ox 95% ; ea 21:19 BP 148 / 72; Pulse 90; Resp 19; Temp 98.0; Pulse Ox 95% ; ea 13:06 Body Mass Index 27.44 (77.11 kg, 167.64 cm) ca1 MDM: 15:39 Patient medically screened. jovany 17:09 Differential diagnosis: Anemia Anxiety Reaction Bronchitis CHF exacerbation, Chronic jovany Obstructive Pulmonary Disease Myocardial Infarction pneumonia, Pneumothorax pulmonary edema, Pulmonary Embolism reactive airway disease, Sepsis Unstable Angina. Antibiotic administration: The patient is discharged and will get outpatient antibiotics, Zithromax. The patient's Wells Deep Vein Thrombosis Score was calculated as follows: Total Score: 0-2 Pts- Low Risk. The patient's pulmonary embolism risk score was calculated as follows: Total Score: 0-2 points. This patient was found to be at low risk for a pulmonary embolism by using the Well's assessment criteria. Immunization status: Pneumococcal vaccine: Influenza vaccine: Data reviewed: vital signs, nurses notes, lab test result(s), EKG, radiologic studies, plain films. Data interpreted: campus monitor: rate is 102 beats/min, rhythm is regular, Pulse oximetry: on room air is 95 %. Test interpretation: by ED physician or midlevel provider: ECG, plain radiologic studies. Counseling: I had a detailed discussion with the patient and/or guardian regarding: the historical points, exam findings, and any diagnostic results supporting the discharge/admit diagnosis, lab results, radiology results, the need for outpatient follow up. 09/20 15:41 Order name: Basic Metabolic Panel [facility] 09/20 15:41 Order name: CBC with Diff; Complete Time: 17:48 [facility] 09/20 15:41 Order name: LFT's 09/20 15:41 Order name: Magnesium [facility] 09/20 15:41 Order name: NT PRO-BNP; Complete Time: 17:48 [facility] 09/20 15:41 Order name: PT-INR; Complete Time: 18:05 [facility] 09/20 15:41 Order name: Troponin (emerg Dept Use Only); Complete Time: 17:48 [facility] 09/20 15:41 Order name: Lipase; Complete Time: 17:48 [facility] 09/20 15:41 Order name: Basic Metabolic Panel; Complete Time: 17:48 EDMI 09/20 15:42 Order name: Liver (Hepatic) Function; Complete Time: 17:48 EDMI 09/20 15:42 Order name: Magnesium; Complete Time: 17:48 EDMI 09/20 17:06 Order name: COVID-19 : Document "Date of Symptom Onset" if Symptomatic. 09/20 17:06 Order name: Flu 09/20 17:06 Order name: D-Dimer jovany 09/20 13:14 Order name: Chest Pa And Lat (2 Views) XRAY; Complete Time: 17:48 ca1 09/20 18:18 Order name: CT Chest Wo Con 09/20 18:22 Order name: Soft Tissue Neck Wo Contr EDMS 09/20 18:37 Order name: US Extremity Venous W Compression [place] 09/20 19:12 Order name: CT EDMS 09/20 19:35 Order name: COVID-19/FLU A+B EDMI 09/20 15:41 Order name: EKG; Complete Time: 15:42 [facility] 09/20 15:41 Order name: Cardiac monitoring; Complete Time: 16:55 [facility] 09/20 15:41 Order name: EKG - Nurse/Tech; Complete Time: 16:55 [facility] 09/20 15:41 Order name: IV Saline Lock; Complete Time: 16:55 [facility] 09/20 15:41 Order name: Labs collected and sent; Complete Time: 16:56 [facility] 09/20 15:41 Order name: O2 Per Protocol; Complete Time: 16:56 [facility] 09/20 15:41 Order name: O2 Sat Monitoring; Complete Time: 16:55 [facility] 09/20 18:30 Order name: CONS Physician Consult EDMS 09/20 18:30 Order name: CONS Physician Consult EDMS EC:12 Rate is 87 beats/min. Rhythm is regular. QRS [place] is Normal. [place] interval is normal. QRS jovany interval is normal. QT interval is normal. No Q waves. T waves are Normal. No ST changes noted. Clinical impression: NSR w/ Non-specific ST/T Changes and No evidence of ischemia. Interpreted by me. Reviewed by me. Administered Medications: 18:00 Drug: Rocephin - (cefTRIAXone) 1 grams Route: IVPB; Infused Over: 30 mins; Site: right jl7 forearm; 18:03 Follow up: Response: No adverse reaction; IV Status: Completed infusion jl7 18:00 Drug: Zithromax (azithromycin) 500 mg Route: PO; jl7 18:31 Follow up: Response: No adverse reaction 18:00 Drug: Tussionex Pennkinetic ER (chlorpheniramine-hydrocodone) 5 ml Route: PO; jl7 18:30 Follow up: Response: No adverse reaction 7 18:00 Drug: NS 0.9% 1000 ml Route: IV; Rate: 75 ml/hr; Site: right forearm; jl7 18:03 Drug: SOLU-Medrol 125 mg Route: IVP; Site: right forearm; jl7 18:31 Follow up: Response: No adverse reaction 7 18:10 Drug: predniSONE 20 mg Route: PO; jl7 18:31 Follow up: Response: No adverse reaction [facility] 18:15 Drug: Xopenex 2.5 mg Route: Inhalation; 7 18:15 Drug: AtroVENT Aerosol 0.5 mg Route: Inhalation; [facility] 18:16 Not Given (Duplicate Order): NS 0.9% 1000 ml IV at 125 ml/hr continuous [facility] 20:25 Drug: Lovenox 75 mg Route: Sub-Q; Site: right lower abdomen; ea Disposition: 09/20/20 18:20 Hospitalization ordered by Jarad Ruano for Observation. Preliminary diagnosis are Dyspnea, Bronchitis, not specified as acute or chronic, Cough, Stridor - resolved, Solitary pulmonary nodule. - Bed requested for Telemetry/MedSurg (observation). - Status is Observation. ea - Condition is Fair. - Problem is new. - Symptoms have improved. Signatures: Dispatcher [employer] EDMS Balbina Mills RN RN dw Anderson, Corey, MD MD cha Leal, Jahala, RN RN jl7 Alia Miller RN RN ea Acob, Cheryl, RN RN ca1 Corrections: (The following items were deleted from the chart) 15:56 15:42 Chest Single View+RAD.RAD.BRZ ordered. EDMI EDMS 18:22 18:19 Soft Tissue Neck W/Contr+CT.RAD.BRZ ordered. EDMI EDMS 20:02 18:20 Hospitalization Ordered by Jarad Ruano MD for Observation. Preliminary jovany diagnosis is Dyspnea; Bronchitis, not specified as acute or chronic; Cough; Stridor - resolved. Bed requested for Telemetry/MedSurg (observation). Status is Observation. Condition is Fair. Problem is new. Symptoms have improved. jovany 20:18 20:02 09/20/2020 18:20 Hospitalization Ordered by Jarad Ruano MD for Observation. dw Preliminary diagnosis is Dyspnea; Bronchitis, not specified as acute or chronic; Cough; Stridor - resolved; Solitary pulmonary nodule. Bed requested for Telemetry/MedSurg (observation). Status is Observation. Condition is Fair. Problem is new. Symptoms have improved. jovany 21:17 20:18 09/20/2020 18:20 Hospitalization Ordered by Jarad Ruano MD for Observation. ea Preliminary diagnosis is Dyspnea; Bronchitis, not specified as acute or chronic; Cough; Stridor - resolved; Solitary pulmonary nodule. Bed requested for Telemetry/MedSurg (observation). Status is Observation. Condition is Fair. Problem is new. Symptoms have improved. dw
--- NOTE | 2020-09-20 19:11 | RAD REPORT ---
EXAM DESCRIPTION: CT - Thorax Wo Con - 09/20/2020 6:53 pm CLINICAL HISTORY: Cough COMPARISON: none TECHNIQUE: Computed axial tomography of the chest was obtained. Contrast was not requested. All CT scans are performed using dose optimization technique as appropriate and may include automated exposure control or mA/KV adjustment according to patient size. FINDINGS: The evaluation of mediastinum, jacob and vessels is limited secondary to lack of IV contras t administration. 5 millimeter nodule right lower lobe. Mild opacities lingula probably chronic. . No mediastinal or hilar lymphadenopathy is seen. A pleural effusion is not present. No pericardial effusion. Coronary arterial calcifications are pres ent. Left mastectomy IMPRESSION: 5 millimeter nodule right lower lobe. If the patient is high risk follow up CT chest 1 y ear would be recommended
--- NOTE | 2020-09-20 19:26 | RAD REPORT ---
EXAM DESCRIPTION: CT - Soft Tissue Neck Wo Contr - 09/20/2020 6:53 pm CLINICAL HISTORY: Neck pain, cough, stridor COMPARISON: None TECHNIQUE: Computed axial tomography of the neck was obtained. IV contrast was not requested. Coron al and sagittal reconstruction was performed. All CT scans are performed using dose optimization technique as appropriate and may include automated exposure control or mA/KV adjustment according to patient size. FINDINGS: The pharynx, tongue base, larynx and subglottic trachea appear unremarkable Patient reports recent left carotid surgery. No abscess/ hematoma. . The parotid and submandibular glands are unremarkable. A 23 millimeter nodule extends off the inferior aspect of the right lobe of thyroid gland No lymphadenopathy is seen Fluid within the sinuses/mastoids is not seen. IMPRESSION: 23 millimeter nodule right lobe thyroid gland. Nonemergent thyroid ultrasound recommende d
[2020-09-20 19:35] LABS: SARS-COV-2 RT PCR NEGATIVE (NEGATIVE)
[2020-09-20] MEDS ORDERED: ENOXAPARIN 80 MG/0.8 ML SQ ONE (19:39)
--- NOTE | 2020-09-20 20:27 | RAD REPORT ---
EXAM DESCRIPTION: USExtrem Venous W Compress Bil09/20/2020 8:16 pm CLINICAL HISTORY: Leg swelling /pain COMPARISON: none FINDINGS: The common femoral, superficial femoral, popliteal and posterior tibial veins bilaterally are compressible and demonstrate augmentation. Doppler demonstrates good flow. IMPRESSION: No evidence of deep venous thrombosis involving either lower extremity.
[2020-09-20] MEDS ORDERED: MORPHINE 2 MG/ML SYR IV PRN (20:55)
[2020-09-20] MEDS ORDERED: ALBUTEROL 2.5 MG/3 ML NEB SOL NEB PRN (20:55)
[2020-09-20] MEDS ORDERED: ACETAMINOPHEN 500 MG TAB PO PRN (20:55)
[2020-09-20] MEDS ORDERED: IPRATROPIUM BROM 0.5MG/2.5ML NEB PRN (20:55)
[2020-09-20] MEDS ORDERED: ONDANSETRON 4 MG/2 ML VIAL IV PRN (20:55)
[2020-09-20] MEDS: ENOXAPARIN 80 MG/0.8 ML SQ SCH ×2 (21:00→22:18)
[2020-09-20] MEDS: FAMOTIDINE 20 MG/2 ML VIAL IV SCH (22:18)
[2020-09-20 22:39] VITALS: O2SAT 93
[2020-09-20 22:49] VITALS: BMI 30.7
[2020-09-21] MEDS: LORazepam 2 MG/ML VIAL IV PRN ×2 (00:25→11:39)
[2020-09-21] MEDS: METHYLPREDNISOLONE 40 MG INJ IV SCH ×2 (00:28→08:29)
[2020-09-21 03:24] LABS: Absolute Lymphocytes (CBC) 0.7 K/uL (0.7-4.9); Basophils % 0.5 % (0-1.3); Hematocrit 29.5 % (36.0-45.0); Lymphocytes % 10.9 % (15.3-44.8); MPV 8.2 fL (7.6-11.3); RBC Red Blood Cell Count 3.22 M/uL (3.86-4.86)
[2020-09-21 04:01] LABS: Potassium 3.9 mmol/L (3.5-5.1)
[2020-09-21 05:17] LABS: Blood Morphology Comment NOT SEEN (NOT SEEN); Platelet Estimate ADEQ
--- NOTE | 2020-09-21 07:55 | RAD REPORT ---
EXAM DESCRIPTION: Felicia Single View09/21/2020 4:58 am CLINICAL HISTORY: Chest pain COMPARISON: September 20, 2020 FINDINGS: The patient's known small right lung nodule is not seen on this exam. The lungs appear clear of acute infiltrate. The heart is normal size
[2020-09-21] MEDS: ENOXAPARIN 80 MG/0.8 ML SQ SCH (08:29)
[2020-09-21] MEDS: FAMOTIDINE 20 MG/2 ML VIAL IV SCH (08:30)
[2020-09-21] MEDS ORDERED: ASPIRIN EC 81 MG TAB PO SCH (09:00)
--- NOTE | 2020-09-21 09:50 | RAD REPORT ---
EXAM DESCRIPTION: NM - Vent Perfusion VQ Scan - 09/21/2020 9:24 am CLINICAL HISTORY: Chest pain COMPARISON: September 21, 2020 chest x-ray TECHNIQUE: 20.3 Mci [id number] was administered by inhalation. First breath, equilibrium, and washout images of the lungs obtained 6.9 millicuries Technetium-99 MAA was administered intravenously. Anterior, posterior, lateral and ob lique views of the lungs were taken. FINDINGS: The lungs demonstrate relatively homogeneous radiotracer activity on ventilation and perfu mark sequences. No mismatched segmental or lobar perfusion defects are seen. IMPRESSION: No evidence of a pulmonary embolus
--- NOTE | 2020-09-21 11:49 | PN ---
The patient states she is still coughing with difficulty breathing after the cough as the cough is so severe. She has also some shortness of breath related to activity, however, the cough does not seem to be related to activity. The workups so far show some possible interstitial changes on the lung, may be underlying disease process. She states the sputum is still green. We will obtain a culture, possibility of pseudomonas and awaiting disposition after being seen by a machine group leader. HR/MODL Voice ID: [id number] Report ID: [id number]
--- NOTE | 2020-09-21 12:22 | HP ---
Date of Admission: 09/20/2020 Entrance Complaint: Persistent cough, general malaise. History Of Present Illness: The patient dates her illness back to mid July. She states approxima tely 2 weeks after she had endarterectomy which she felt there were some anesthetic problems because she was hospitalized for over a week. She developed generalized aches and pains, which she equated t o a flu-like syndrome. Shortly after that, she began coughing. Since that time, the cough has been progressive and been mainly green. The coughing has a spasmodic type cough and in between times, she is slightly short of breath, but does not seem to precipitate coughing episodes. However, due to th e persistence of the symptoms, she has now been seen for this. She has been seen by Cardiology and nan davidson up after the endarterectomy. She called the office yesterday and was instructed due to the s ymptoms to come to the ER, at which time she was evaluated. There were some questionable changes on the x-ray of the interstitial and she was admitted for further treatment. Past History: The patient has a long history of episodic asthma type attacks, which has been respons alex in the past to inhaler. She says she has needed the inhaler for quite a while as of late, althou gh she did start using it when she developed her cough. She also has some cardiovascular disease patricia denced by the carotid problem. Social History: Smoker years ago. Family History: Noncontributory. Physical Examination: General: The patient is slightly obese, elderly female, in no acute distress. Vital Signs: Stable. Head and neck: Normocephalic. Pupils equal to light and accommodation. Fundi negative. Trachea mi dline. Thyroid not palpable. Chest: High-pitched rhonchi heard at the bases. Adequate air entry and movement. Cardiovascular: PMI midclavicular line. Heart: Sounds normal. Peripheral pulses present and equal bilaterally. Abdomen: No organomegaly. Bowel sounds present Extremities: Good tone and movement bilaterally. Reflexes physiologic. Rectal: Deferred. Pelvic: Deferred. Impression: Acute bronchitis. Plan: The patient will be admitted, placed on inhalation therapy, antibiotic therapy and consultatio n will be obtained with Pulmonology, also Cardiology in view of the surgical situation in [place] for endarterectomy. HR/MODL Voice ID: [id number]
[2020-09-21] MEDS ORDERED: METOPROLOL TAR 25 MG TAB PO ONE (12:35)
[2020-09-21] MEDS: LORazepam 2 MG/ML VIAL IV ONE ×2 (12:35→13:10)
[2020-09-21 13:10] VITALS: BP 145/69
[2020-09-21] MEDS ORDERED: ALBUTEROL INHALER 60 PUFF/8 GM IH SCH (14:00)
[2020-09-21 14:49] VITALS: TEMP 96.3
[2020-09-21] MEDS ORDERED: AZITHROMYCIN 250 MG TAB PO SCH (17:00)
[2020-09-21] MEDS ORDERED: AZITHROMYCIN IV 500 MG in NA CHLORIDE 0.9% 250 ML IVPB SCH (18:00)
--- NOTE | 2020-09-22 04:33 | EKG ---
Test Date: 2020-09-21 Test Time: 13:25:04 Incoming Freight Clerk: JOANA MEASUREMENT RESULTS: Intervals: Rate: 141 UT: 128 QRSD: 88 QT: 306 QTc: 468 [place]: P: 28 UT: 128 QRS: 32 T: 52 INTERPRETIVE STATEMENTS: Sinus tachycardia with frequent premature ventricular complexes Nonspecific ST abnormality Abnormal ECG Compared to ECG 09/20/2020 15:48:44 Ventricular premature complex(es) now present ST (T wave) deviation now present Sinus rhythm no longer present Electronically Signed On 09-22-20 04:32:16 CDT by Joel Shaver
--- NOTE | 2020-09-22 04:36 | EKG ---
Test Date: 2020-09-20 Test Time: 15:48:44 Senior Net Software Engineer: NEAL MEASUREMENT RESULTS: Intervals: Rate: 87 PA: 146 QRSD: 88 QT: 386 QTc: 464 [place]: P: 45 PA: 146 QRS: 43 T: 55 INTERPRETIVE STATEMENTS: Normal sinus rhythm Normal ECG Compared to ECG 06/30/2020 15:53:26 Myocardial infarct finding no longer present Electronically Signed On 09-22-20 04:32:40 CDT by Joel Shaver
--- NOTE | 2020-09-24 09:21 | P.CNS ---
Date of Consult: 09/21/20 Reason for Consult: Cough Chief Complaint: Chronic cough History of Present Illness: Patient is 70 years of age as been having some chronic cough denies any symptoms of sepsis patient is not smoke/she has been sick for about a month now had carotid surgery in Jul the 15 had problems after that also complaining of some shortness of breath the time of my evaluation patient was doing well Allergies iodine Allergy (Verified 06/30/20 15:31) Anaphylaxis/Hemorrhage/Hives Home Medications: Ascorbic Acid [Vitamin C] 500 mg PO DAILY 09/21/20 Aspirin [Aspirin EC] 81 mg PO DAILY 09/21/20 Atorvastatin Calcium [Lipitor] 20 mg PO BEDTIME 09/21/20 Clopidogrel Bisulfate [Plavix*] 75 mg PO DAILY 09/21/20 Fenofibrate [Tricor*] 145 mg PO DAILY 09/21/20 Metoprolol Tartrate [Lopressor] 25 mg PO DAILY 09/21/20 - Past Medical/Surgical History -: Carotid artery disease - Social History Smoking Status: Current every day smoker Place of Residence: Home Review of Systems 10-point ROS is otherwise unremarkable Physical Examination Temp Pulse Resp BP Pulse Ox 96.3 F L 147 H 20 145/69 H 93 09/21/20 12:00 09/21/20 13:08 09/21/20 12:00 09/21/20 13:08 09/21/20 12:00 General: Alert, Oriented x3 Neck: Supple Respiratory: Clear to auscultation bilaterally Cardiovascular: No edema, Normal S1 S2 Gastrointestinal: Normal bowel sounds, Soft and benign - Problems (1) Chronic cough Status: Acute Plan: Patient is 70 years of age admitted with a chronic cough dates back to her carotid artery see surgery patient does not smoke doing better can be discharged home on trial of trilogy nasal spray anti reflux medication chest x-ray clear no evidence of thromboembolism to follow-up with me in 1 or 2 weeks
--- NOTE | 2020-09-28 03:11 | CON ---
Date of Consultation: 09/21/2020 Reason For Consultation: Shortness of breath, possible congestive heart failure. History Of Present Illness: Ms. Jaffe is a 70-year-old woman. She is known to me from previous offic e visits. She has a history of breast cancer, hypertension, dyslipidemia, ruptured colon in the past , hypothyroidism, and had multiple surgeries including tonsillectomy, left mastectomy, back and right shoulder surgery, carotid surgery, appendectomy, cholecystectomy, colon resection. Has had negative cardiac workup in the past. Came in with shortness of breath, cough, PND, orthopnea that had been g oing on and off for about 2 months. Past Medical History: As stated above. Allergies: INCLUDE IODINE. Review of Systems: Negative. Social History: Negative. Family History: Noncontributory. Physical Examination: Vital Signs: Stable. She was afebrile, sinus rhythm to sinus tach. HEENT: Negative. Neck: Supple with no bruit. Chest: Clear to auscultation and percussion. Cardiac: Exam revealed a regular rhythm and rate. No murmurs, gallops, or rubs. Abdomen: Benign. Extremities: Revealed no clubbing, cyanosis, or edema. Diagnostic Data: So far a chest CT scan showed 5 mm nodule in the right lower lobe, to be considered for followup. Her chest x-ray showed a small focal infiltrate versus nodular mass in the left lung base. A small bilateral pleural effusion and chronic interstitial lung disease. No evidence of miles estive heart failure. Extremity venous Doppler showed no evidence of DVT. Lung V/Q scan was negativ e for pulmonary embolus. She had a soft tissue neck CT showing a 23 mm nodule in right thyroid. Non emergent thyroid ultrasound was recommended. Her creatinine was normal. Her hemoglobin was 10.9. H er D-dimer was 825. Her troponin was negative. BNP was 242. Impression And Plan: Shortness of breath, cough, PND orthopnea, certainly could be related to conges tive heart failure. I think an echocardiogram is reasonable as it certainly can be done as an outpat ient if she wishes. I will make sure she sees me in the office in the next week or 2. I truly think that her symptoms are more likely to be related to pulmonary issue rather than cardiac issue. Her b lood pressure is fairly well controlled. Her dyslipidemia is well controlled. Pulmonology recommend ed nasal spray and anti-reflux medication. I will see her in the office in the near future. CHAR/MARK Voice ID: [id number] Report ID: [id number]
--- NOTE | 2020-11-22 12:28 | DS ---
Date of Discharge: 09/21/2020 Hospital Course: The patient was admitted to the hospital on 09/20. Presented to the emergency room with shortness of breath. States her symptoms increasingly more severe despite significant outpatie nt treatments with various antibiotics and inhalation therapy. The patient does have a history of as thma intermittently. On admission, she was given IV steroids, inhalation therapy with rather signifi cant improvement. Possibility of CHF was also considered, seen by Cardiology. She states her sympto ms were timing lundy, significantly related at the time of her carotid endarterectomy. Another reason ; however, they did not think this was a fact. She was placed on IV antibiotics during he r hospital stay, was seen by Pulmonology as well as Cardiology. Pulmonology felt that this was issue rather than underlying pathology. She outlined treatment and decreasing stero id doses, to be discharged. Continue on steroid and antibiotics. Follow up with myself, Pulmonology and Cardiology as necessary, in good condition on 09/21. Final Diagnoses: Acute bronchitis; hypertension, controlled; carotid endarterectomy , cont rolled. HR/MODL Voice ID: [id number] Report ID: [id number]
== END 2020-09-21 15:30 | disposition home or self-care (01) ==
LOC: ER 12:50 → ERHOLD 18:26 → 2ND 20:49
PROVIDERS: ADMIT Family Medicine; ATTEND Family Medicine
DX: J20.9 Acute bronchitis, unspecified (principal); Z20.822 Contact with and (suspected) exposure to COVID-19; Z85.3 Personal history of malignant neoplasm of breast; E78.5 Hyperlipidemia, unspecified; I10 Essential (primary) hypertension; E03.9 Hypothyroidism, unspecified; Z87.891 Personal history of nicotine dependence
CPT/HCPCS: 93005 ×2; 87070; 85025 ×2; 80048 ×2; 36415; 83735; 87205; 85610; 85379; 80076; 84484 ×3; 83690; 83880 ×2; 0240U; 70490; 71250; 71045; 71046; 93970; 94760; 78582; J0456; J0696; J7050; J7030; J2930; J2920 ×2; A9558; A9540; 96372; 96374; 96375; 99285; G0378; J7512

== ENCOUNTER 2020-11-08 20:07 | Observation (INO) | payer OTHER ==
--- OUTSIDE RECORDS SUMMARY | 2020-11-08 20:12 | XMS REPORT | Continuity of Care Document ---
:1950 Author Organization [facility] t Address [address] [place] [address] Care Team Providers Name Role Phone Bindu SNIDER Primary Care Physician Edis Ferrer MD Attending Clinician EDIS FERRER Attending Clinician Unavailable Prince SNIDER Attending Clinician Hitesh Novka MD Attending Clinician Unavailable Moy Nowak MD Attending Clinician Gary Mason MD Attending Clinician Bonnie Arellano MD Attending Clinician Unavailable Alexandria STARK Attending Clinician Unavailable EDIS FERRER Admitting Clinician Unavailable Payers Payer Name Policy Type Policy Effective Date Expiration Date Sour ce Number MEDICAREMEDICARE A [id number] 2014 HEIDY Eaton [id number] 00:00:00 - Medical resentMedicare Center AETNA - MEDICARE MGD [id number] HEIDY Pereira CAREAET MEDICARE HMO 00:00:00 - Medical [facility] Center [id number] [address], [place] [address] Problems Condition Condition Condition Status Onset Resolution Last Treating Co mments Source Name Details Category Date Date Treatment Clinician Date s/p L CEA s/p L CEA Disease Active HEIDY Tucker by by 07-19 [facility] - Carissa - 00:00: Medi danny 07/22/20 07/22/20 00 Center 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-13 [facility] - artery artery 00:00: Medical occlusion occlusion 00 Cent er Smoker Smoker Disease Active [facility] 1-05 [facility] - 00:00: Medical 00 [place] Paroxysmal Paroxysmal Disease Active [facility] atrial atrial 07-13 [facility] - fibrillati fibrillati 00:00: Me dical on on Center Essential Essential Disease Active [facility] hypertensi hypertensi 07-13 Lionel kes - on on 00:00: Medical 00 [place] Dyslipidem Dyslipidem Disease Active [facility] ia ia 07-13 [facility] - 00:00: Medical 00 [place] 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 Lateral, medial, and anterior and posterior ; S/P Meniscal [...] Source Name Type Date Date Clinician Regina Suazoi Active Anaphylaxis Throat [facility] h ty to 07-14 swelling [facility] - Containi adverse 00:00: Medical ng reaction 00 Center Products s Allergen Drug Active Other (See [facility] ic Allergy Comments) 04-01 [facility] - Extracts 00:00: Medical 00 [place] Iodine Drug Active Anaphylaxis Throat [facility] And Allergy 01-11 swelling [facility] - Iodide 00:00: Medical Containi 00 [place] ng Products Other Propensi Active "Seafood" [facility] ty to 01-11 "Cats" [facility] - adverse 00:00: Medical reaction 00 Center s Iodine Propensi Active [place] And ty to 01-11 Methodi Iodide adverse 00:00: st Containi reaction 00 ng s to Products drug Iodine Adverse Active Info Not [facility] Reaction Available [facility] Clinics Cat Hair Adverse Active Info Not [facility] t Extract Reaction Available [facility] Family History Family Member Diagnosis Comments Start Date Stop Date Source Natural brother Heart disease [facility] Natural father Cancer [facility] Natural father Cancer [facility] thodist Natural mother Heart disease [facility] Natural mother Heart disease [place] Taoism Natural mother Hypertension [place] Taoism Social History Social Habit Start Date Stop Date Quantity Comments Source History of tobacco Cigarette Smoker [place] use Taoism History [facility] - Alcohol Std Drinks Medica [facility] History [facility] - Alcohol Binge Medical [facility] ter Sex Assigned At [facility] Cigarettes smoked 2020-08-05 2020-08-05 [facility]pack per 00:00:00 00:00:00 [facility] day) - Reported Cigarette 2020-08-05 2020-08-05 [facility] - pack-years 00:00:00 00:00:00 [facility] Tobacco use and 2020-08-05 2020-08-[address] [facility] - exposure 00:00:00 00:00:00 [facility] Alcohol intake 2020-08-05 2020-08-05 [facility]00 00:00:00 non-drinker Medical Cente r (finding) History SDOH 2020-07-13 2020-07-13 [address] [facility] [address] kes - Alcohol Frequency 00:00:00 00:00:00 [facility] Smoking Status Start Date Stop Date Source Current every day smoker 2020-08-05 00:00:[address] [facility] [facility] Medications Ordered Filled Start Stop Current Ordering Indication Dosage Frequency Signature Comments Components Source Medication Medication Date Date Medication? Clinician (SIG) Name Name lisinopril- Yes 1{tbl} QD Take [address] hydroCHLORO -28 tablet by Cordelia es - thiazide 12:33: mouth Medical (PRINZIDE,Z 40 daily. [place] ESTORETIC) 20-12.5 mg per tablet ascorbic Yes 500mg QD Take [address] acid, 1-28 mg by [facility]ukes - vitamin C, 12:32: mouth Medica l (ascorbic 02 daily. [place] acid with gael hips) 500 MG tablet multivitami Yes 1{tbl} QD Take [address] n per - tablet by [facility] - tablet 12:30: mouth Medical 35 daily. [place] aspirin 81 Yes 81mg QD Take [address] MG EC 08-05 by mouth [facility] - tablet 12:30: daily. Medical 35 [place] clopidogreL Yes 75mg QD Take [address] (PLAVIX) 75 08-05 by mouth Luke s - mg tablet 12:30: daily. Medica l 35 [place] atorvastati 2021- No 20mg QD Take [address] n (LIPITOR) 07-24 tablet (20 L ukes - 20 MG 00:00: 23:59 mg total) Medica l tablet 00 :00 by mouth Center daily. simvastatin No 40mg QD Take [address] (ZOCOR) 40 07-23 by mouth Luke s - MG tablet 11:48: 00:00 daily. Medic al 29 :00 [place] metoprolol 2021- No 12.5mg Q.5D Take 0.[address] tartrate 07-23 tablets Lukes - (LOPRESSOR) 00:00: 23:59 (12.5 mg M edical 25 MG 00 :00 total) by Center tablet mouth 2 (two) times daily. furosemide 2021- No 20mg QD Take [address] (LASIX) 20 07-23 tablet (20 Lionel kes - MG tablet 00:00: 23:59 mg total) Me dical 00 :00 by mouth Center daily. potassium No 10meq QD Take [address] chloride -15 - tablet (10 Luke s - (KLOR-CON) 00:00: 23:59 mEq total) Medical 10 MEQ CR 00 :00 by mouth Center tablet daily. traMADoL No 50mg Take [address] (ULTRAM) 50 07-23- tablet (50 L ukes - mg tablet 00:00: 23:59 mg total) Me dical 00 :00 by mouth Center every 6 (six) hours as needed for up to 10 days. Max Daily Amount: 200 mg chlorhexidi No 118mL [facility] ne 07-16 [facility] - (HIBICLENS) 08:37: 09:08 Medic al external 20 :29 Center liquid 4% metoprolol 2019-07 No 25mg Q.5D Take [address] tartrate 07-25 by mouth 2 Luke s - (LOPRESSOR) 00:00: 00:00 (two) Medi danny 25 MG 00 :00 times Center tablet daily. levothyroxi 2019-07 Yes 25ug QD Take [address] ne 1-04 mcg by Lukes - (SYNTHROID, 00:00: mouth Medic al LEVOTHROID) 00 daily. Center 25 MCG tablet fenofibrate 2019-07 Yes 145mg QD Take [address] (TRICOR) 0-15 mg by [facility]ukes - 145 MG 00:00: mouth Medical tablet 00 daily. Center omeprazole 2019-07 No 40mg QD Take [address] (PriLOSEC) 009 07-16 by mouth Luke s - 40 MG 00:00: 00:00 daily. Medical capsule 00 :00 Center Tylenol # 3 Tylenol # 3 Yes Migel one tab [facility] 8-27 Bennett [facility] - 00:00: Memoria 00 l Outpati ent Clinics lisinopril- Yes 1{tbl} QD Take 1 [place] hydrochloro 1-27 tablet by Met car[place]ton thiazide 10:42: mouth st (PRINZIDE,Z 15 daily. ESTORETIC) 20-12.5 mg per tablet simvastatin Yes 40mg QD Take 40 mg [place] (ZOCOR) 40 -27 by mouth Metho di MG tablet 10:42: daily. st 15 aspirin Yes 81mg QD Take 81 mg [place] (ECOTRIN) -27 by mouth Method i 81 MG 10:42: daily. st enteric 15 coated tablet fenofibrate Yes 145mg QD Take 145 [place] (TRICOR) 7-19 mg by Methodi 145 MG 00:00: mouth once st tablet 00 daily. levothyroxi Yes 25ug QD Take 25 Tyrel ston ne 7-15 mcg by Methodi (SYNTHROID, 00:00: mouth once st LEVOTHROID) 00 daily. 25 MCG tablet Aspirin 81 Aspirin 81 Yes Migel not [facility] Donald defined [facility] Clinics Lisinopril- Lisinopril- Yes Migel not [facility] Hydrochloro Hydrochloro Donald defined Lukes - thiazide thiazide [facility] Clinics Simvastatin Simvastatin Yes Migel not [facility] Bennett defined [facility] - [facility] Clinics Fenofibrate Fenofibrate Yes Migel not [facility] Donald defined [facility] Clinics Levothyroxi Levothyroxi Yes Migel not [facility] ne Sodium ne Sodium Donald defined [facility] - [facility] Clinics Acetaminoph Acetaminoph Yes Migel not [facility] en-Codeine en-Codeine Donald defined Lukes - #3 #3 [facility]oria l [facility] ent Clinics Multivitami Multivitami Yes Migel not [facility] n Adult n Adult Donald defined Luke s - [facility] Clinics Vital Signs Vital Name Observation Time Observation Value Comments Source Systolic blood 2020-08-05 12:28:00 124 mm[Hg] [facility] Diastolic blood 2020-08-05 12:28:00 60 mm[Hg] [facility] Heart rate 2020-08-05 12:28:00 85 /min [facility] Body temperature 2020-08-05 12:28:00 37 Nallely [facility] Respiratory rate 2020-08-05 12:28:00 18 /min [facility] Body height 2020-08-05 12:28:00 167.6 cm [facility] Body weight 2020-08-05 12:28:00 97.523 kg [facility] BMI 2020-08-05 12:28:00 34.70 kg/m2 [facility] Oxygen saturation in 2020-08-05 12:28:00 96 /min room iar [facility] Arterial blood by Medical Ce nter Pulse oximetry Procedures Procedure Date / Time Performing Clinician Source Performed PREPARE LEUKO-REDUCED RBC 2020-07-23 23:54:00 Sandy Freed [facility] POCT-GLUCOSE METER 2020-07-23 14:31:00 Carissa [facility] BASIC METABOLIC PANEL (7) 2020-07-23 06:02:00 Trish Gallardo [facility] CBC W/PLT COUNT & AUTO 2020-07-23 06:02:00 Trish Gallardo [facility] S [facility] MAGNESIUM 2020-07-23 06:02:00 Trish Gallardo [facility] PHOSPHORUS 2020-07-23 06:02:00 Jonathan Gallardoscar [facility] POCT-GLUCOSE METER 2020-07-23 05:04:00 Carissa [facility] ECG 12-LEAD 2020-07-23 01:57:40 Jovan Nunes [facility] XR CHEST 1 VIEW 2020-07-23 00:49:00 Carissa, [facility] - PORTABLE/BEDSIDE [facility] POCT-GLUCOSE METER 2020-07-23 00:39:00 Carissa, [facility] POCT-BLOOD GASES, VENOUS 2020-07-23 00:34:00 Carissa, [facility] POCT-SODIUM 2020-07-23 00:34:00 Carissa, [facility] POCT-POTASSIUM 2020-07-23 00:34:00 Carissa, [facility] POCT-HEMOGLOBIN 2020-07-23 00:34:00 Carissa, [facility] POCT-HEMATOCRIT 2020-07-23 00:34:00 Carissa, [facility] POCT-CALCIUM IONIZED 2020-07-23 00:34:00 Carissa, [facility] POCT-GLUCOSE 2020-07-23 00:34:00 Carissa [facility] TRANSFUSE LEUKO-REDUCED 2020-07-22 20:20:19 [facility]LLS [facility] BLOOD GAS, ARTERIAL 2020-07-22 14:58:00 [facility] W/[facility]T COUNT & AUTO 2020-07-22 14:57:00 Abdiaziz [facility] DIFFERENTIAL [facility] BASIC METABOLIC PANEL (7) 2020-07-22 14:57:00 Sandy Freed [facility] MAGNESIUM 2020-07-22 14:57:00 Sandy Freed [facility] PHOSPHORUS 2020-07-22 14:57:00 [facility] LACT[facility]ID, ARTERIAL 2020-07-22 14:57:00 Sandy Freed [facility] XR CHEST 1 VIEW 2020-07-22 13:18:00 [facility] PORT[facility]/BEDSIDE [facility] CALCIUM, IONIZED 2020-07-22 11:14:00 [facility] POTASSIUM-STAT LAB 2020-07-22 11:13:00 Alexander [facility] GLUCOSE-STAT LAB 2020-07-22 11:13:00 [facility] HGB/HCT (H&H) - STAT LAB 2020-07-22 11:13:00 [place] TISSUE EXAM 2020-07-22 09:13:00 Carissa [facility] ENDARTERECTOMY,CAROTID 2020-07-22 07:29:00 Carissa Vincent [facility] POCT-GLUCOSE METER 2020-07-22 05:08:00 [facility] BASIC METABOLIC PANEL (7) 2020-07-22 05:00:00 [facility] CBC W/PLT COUNT & AUTO 2020-07-22 05:00:00 AlexanderJonathanscar [facility] S [facility] DIFFERENTIAL [facility] MAGNESIUM 2020-07-22 05:00:00 [facility] PHOS[facility]US 2020-07-22 05:00:00 [facility] POCT-GLUCOSE METER 2020-07-21 20:53:00 [facility] POCT-GLUCOSE METER 2020-07-21 16:28:00 [facility] ECG 12-LEAD 2020-07-21 16:27:56 Unknown, Hl7 [facility] SARS-COV2/RT-PCR ([facility] & 2020-07-21 15:18:00 [facility] - REF LABS) [facility] PROTHROMBIN TIME/INR 2020-07-21 15:18:00 [facility] APTT 2020-07-21 15:18:00 [facility] R & L CATH (+/- SATS & 2020-07-21 08:41:00 Mita Nowak [facility] S [facility] - CARDIAC OUTPUT) [facility] BASIC METABOLIC PANEL (7) 2020-07-21 03:24:00 [facility] CBC W/PLT COUNT & AUTO 2020-07-21 03:24:00 [facility] S t [facility] DIFFERENTIAL [facility] MAGNESIUM 2020-07-21 03:24:00 [facility] PHOSPHORUS 2020-07-21 03:24:00 [place] POCT-GLUCOSE METER 2020-07-20 18:21:00 Carissa, [facility] ECG 12-LEAD 2020-07-20 17:37:05 Unknown, Hl7 [facility] POCT-GLUCOSE METER 2020-07-20 11:46:00 Carissa [facility] POCT-GLUCOSE METER 2020-07-20 06:54:00 Carissa, [facility] BASIC METABOLIC PANEL (7) 2020-07-20 03:32:00 Trish Gallardo I [facility] CBC W/PLT COUNT & AUTO 2020-07-20 03:32:00 Jonathan Gallardoscar [facility] S [facility] MAGNESIUM 2020-07-20 03:32:00 Paulina [facility] PHOSPHORUS 2020-07-20 03:32:00 Alexander [facility] POCT-GLUCOSE METER 2020-07-19 23:30:00 Carissa [facility] LACTIC ACID, ARTERIAL 2020-07-19 17:30:00 Tiesha [facility] BLOOD GAS, ARTERIAL 2020-07-19 17:30:00 [facility] ECHO W/ DOPPLER 2020-07-19 17:18:13 Hayden [facility] (CW/PW/COLOR) [facility] URINALYSIS W/ REFLEX URINE 2020-07-19 16:38:[address] [facility] COMPREHENSIVE METABOLIC 2020-07-19 15:07:00 Liborio Motley [facility] MAGNESIUM 2020-07-19 15:07:00 Liborio Motley [facility] PHOSPHORUS 2020-07-19 15:07:00 [facility] W/PLT COUNT & AUTO 2020-07-19 15:07:00 Liborio Motley [facility] PROTHROMBIN TIME/INR 2020-07-19 15:07:00 Fajilan, [facility] PT/APTT 2020-07-19 15:07:00 Tiesha [facility] TSH/FREE T4 IF INDICATED 2020-07-19 15:07:00 Tiesha [facility] LACTIC ACID, ARTERIAL 2020-07-19 15:07:00 Tiesha [facility] CORTISOL 2020-07-19 15:07:00 Tiesha [facility] XR CHEST 1 VIEW 2020-07-19 14:38:00 Lencho [facility] PORTABLE/BEDSIDE Medical Center BLOOD GAS, ARTERIAL 2020-07-19 14:30:00 Lencho [facility] SODIUM NA-STAT LAB 2020-07-19 14:30:00 Lencho [facility] POTASSIUM-STAT LAB 2020-07-19 14:30:00 Vallionelri [facility] CALCIUM, IONIZED 2020-07-19 14:30:00 Valjerrod [facility] GLUCOSE-STAT LAB 2020-07-19 14:30:00 Lencho [facility] HGB/HCT (H&H) - STAT LAB 2020-07-19 14:30:00 Lencho [facility] PLATELET COUNT 2020-07-19 14:30:00 Lencho [facility] COLOR-FLOW MAPPING 2020-07-19 13:17:38 [facility] CONT WAVE PULSED DOPPLER 2020-07-19 13:17:38 [place] TRANSESOPHAGEAL ECHO 2020-07-19 13:00:53 Paulina [facility] ABORH, MANUAL 2020-07-19 08:49:00 Beckie Motley [facility] VASCULAR DIAGRAM -SCAN 2020-07-19 00:00:00 Provider, Default [facility] CARDIAC CATH REPORT - SCAN 2020-07-19 00:00:00 Provider, Default [facility] TYPE AND SCREEN, AUTOMATED 2020-07-16 09:12:[address] [facility] ECG 12-LEAD 2020-07-16 08:47:40 Vincent Ferrer [facility] SARS-COV2/RT-PCR ([facility] & 2020-07-16 08:39:00 Vincent Ferrer [facility] - REF LABS) [facility] Plan of Care Planned Activity Planned Date Details Comments Source Future Scheduled 2021-03-[address] [facility] - Test 00:00:00 (Season Ended) [code = Medic al Center INFLUENZA VACCINE (Season Ended)] Future Scheduled 2021-02-06 INFLUENZA VACCINE [place] [facility] Test 00:00:00 [code = INFLUENZA VACCINE] Future Scheduled 2020-07-09 Medicare IPPE (WELCOME [facility] Test 00:00:00 TO MEDICARE) [code = Medical Center Medicare IPPE (WELCOME TO MEDICARE)] Future Scheduled 2014 PNEUMOCOCCAL 65+ Y[facility] - Test 00:00:00 (1 of 1 - Medical Center [id number] PCV13) [code = PNEUMOCOCCAL 65+ YRS (1 of 1 - [id number] PCV13)] Future Scheduled 1999 BREAST CANCER [facility] thodist Test 00:00:00 SCREENING [code = BREAST CANCER SCREENING] Future Scheduled 1999 COLONOSCOPY SCREENING [place] [facility] Test 00:00:00 [code = COLONOSCOPY SCREENING] Future Scheduled 1999 SHINGLES VACCINES (#1) [place] [facility] Test 00:00:00 [code = SHINGLES VACCINES (#1)] Future Scheduled 1999 SHINGLES VACCINES ([address] [facility] - Test 00:00:00 of 2) [code = SHINGLES Medic al Center VACCINES (1 of 2)] Future Scheduled 1968-01-28 DTAP/TDAP/TD VACCINES [facility] - Test 00:00:00 (1 - Tdap) [code = Medical C enter DTAP/TDAP/TD VACCINES (1 - Tdap)] Future Scheduled 1967 Hepatitis C screening [place] [facility] Test 00:00:00 (procedure) [code = 212020340] Future Scheduled 1967 HEPATITIS C SCREENING [facility] - Test 00:00:00 [code = HEPATITIS C Medical Center SCREENING] Future Scheduled 1965 COVID-19 VACCINE (1) Tyrel ston [facility] Test 00:00:00 [code = COVID-19 VACCINE (1)] Future Scheduled 1955 65+ PNEUMOCOCCAL [place] [facility] Test 00:00:00 VACCINE (1 of 2 - PPSV23) [code = 65+ PNEUMOCOCCAL VACCINE (1 of 2 - PPSV23)] Future Scheduled [address] [facility] es - Test 00:00:00 [facility] breast (procedure) [code = 036455436] Future Scheduled [address] [facility] es - Test 00:00:00 malignant neoplasm of [facility] colon (procedure) [code = 199888926] Encounters Start End Encounter Admission Attending Care Care Encounter Source Date/Time Date/Time Type Type Clinicians Facility Department ID 2018-04-01 2018-04-01 [facility] [id number] 14:00:00 14:00[facility]00 [facility] 2018-03-04 2018-03-04 [facility] [id number] 11:00:00 11:00:00 [facility] Results Test Description Test Time Test Comments Results Result Sourc e Comments VASCULAR DIAGRAM 2020-08-03 [facility] -[facility] 10:50:52 unspecified - Medical provider. Center CARDIAC CATH 2020-08-[address] [facility] kes REPORT - SCAN 10:50:51 unspecified - Medical provider. [place] Tissue Exam 2020-07-30 18:09:00 Test Item Value Reference Range Interpretation Comme nts Case Report (test code = 104) Surgical Pathology Report Case: [id number] Authorizing Provider: Vincent Ferrer MD Collected: 07/22/2020 09:13 AM Ordering Location: [facility] ELIZA Received: 07/22/2020 10:56 AM PERIOPERATIVE SERVICES Pathologist: Timur Ray MD Specimen: Plaque, left carotid plaque DIAGNOSIS (test code = 3220) m3gcgAShXJIii7coIWPyrUQaNvZhWmZeLsHeFj pc dWMxIHtccnRmMVxlcGljOTIwMFxhbnNpXHNwbHRw E0ApvqddUCwvZK4wKY2wmFgexXMydCFeITRqJnIz l9tar351mHOyn7gtYVNQunwmpJv2qHijU03ml6U3 KhejU08pnFTwMGltmYCxykmadfGuPRADSKUQQEbb RPCZKPNLTBONOHyZZWGAHtKLEwYFHlBYUK4CCAmn pYAsCEFTJWMPVczTCUXSPVVJF8QTWNKOA4DESnKU XRZDKDTgNHPnon41LYL3EuXdu5F0XAF4YZUyXWHv n7kqKOGddJYvGrGeFsMoAyGnAvxsyVLpXMEzWzWu x8qvi212nMWuf5rnYBOpPfO5wJEgJRLutAUgH541 LUTgJUvfb0utn9GvVGFzjNZve6C5AXUAnlkfbHk6 xQujW66rn6Z7DyyuH9vnODXgWUAcY4BhGA6kAXFe Rhl6XUQ9XDD3OGEsMKQcU9DuOG5tKYYqlXBhDFd8 a8lfqWhiUZRzDZJ4l7ffQHemprRkVR3mmm2ygIq2 t1iiqxDxCSGrFNBacXAJWVBsJ8SzjPipOn9cpKi5 qPbuVdmnAKW1Qdy2WD3sjv10tlv1hLmuPTDcgfbu TnO9FZvtKPEfhmqzAOz0TSnqOLLewNM2EJSygELd J7CnYGUaZF7rlzh7TML4XQpyCVGqEqN1IPWjcIUa GXZnsMznZSggl859ZPK7BeNxUH4wO8Bas1J9gZ0i hRLoAEQglCOfGbSlZRWmug3etUBmYGocq8TlCEX4 hrG2sMXlrDUfPYTlXnB1MIkdRN0api00NUMkEIB0 xp6kcLHhxXgdshYktGYvZVbdY7HcZGLfb734QQRs I7TqQORda4F6riDfWpSmPSZhcCK1ngM2QBDcDQ1l ctwmo2fsSYsvWPzcJPJjawS5qgT3YRXkaFLrN0Cd pK1qWIDqGR7tldouv3vaFXD3XQpdYPLrXLF7KzOj URUas6Gsleh0IwDuk6CvcWSxBQeaO73ej194FLCh ssBgC9bvjMLdipqoeAXwsvnbFZirblY4GTKwQMkr ktbeCHLaHZoiH2lsTrMfYJVhjUnvJLgkp0SmVPWb OPMsXgEneXMiQQYoTfk3NGVleDJmFRKyBeImB9pg jgicYpIROFLwh2zkW6dyySVJyCLfJ0LrFXimftZt WHnfWThqSJSsKNU6YN72FebwKYGkpj12 CPT Code(s) (test code = 3357) n4sqlIAhJFBjgBE7GcWhFUFhd5tvk9FpnAZq cGFy ZFbtrFZcimNeau26tYJ4vF64LU3fXTAvNuL7CNNs usG4Ebc6FDMrFFQnoLQbB423u2wdt9qoaoWntMJ9 yAzdFNYfFSNdXTlsRKBdKiYyGCzsNFZ8CPo8CvCi XHBhcn0= CLINICAL HISTORY (test code = 3356) y8payQFmXDAkdBU2UzSeFKZev6bwy8C sdHBncGFy RQdqxTIqzyLeux69xZJ6rT62SL7iKWIwRjG2AGWa iaT7Joe1WIQiWBEfkAHyA195y0vzk0acbqXavXC2 fVxwYXJkXHBsYWluXGZzMjAgTGVmdCBjYXJvdGlk NZU1PJ9ki8whABVzax4= SPECIMEN SOURCE (test code = 3377) q3kjpJOrAVZkyYX3ZjEmRPBsk7ehp3Nm dHBncGFy AAwnwMVwqqZrio60yHY0qN97GV9nTIKtWhW9IXFk ksH3Mcv2CFByMJDqdZMhK146m7mup4sxquDdxTG4 fVxwYXJkXHBsYWluXGZzMjAgUGxhcXVlXHBhcn0= GROSS DESCRIPTION (test code = 3366) y1twxWWwMPUunPVpJgWuDZZhEZGuh5 lcZGVmbGFu [file] dvgwBSKvDDrAICpJT8TDFTcoUKF9 MICROSCOPIC DESCRIPTION (test code = k3iszVHtLREbyVG2PeOoWQSbl0zkz1 BsdHBncGFy 3371) BAvcbILvtxNrvt24xVZ1jB65YP9fRODbBgQ2VCIy juT5Wio9LSZbRRXpvFPiK737m9csg6bpfkKowNS6 aYmvLEWoEPBnPRirXSQnMfCeQMKaSy9ypLPfVUOc cn0= [facility] [id number] 18:09:00Surgical Pathology Report Case: [id number] Authorizing Provider: Vincent Ferrer MD Collected: 07/22/2020 09:13 AM Ordering Location: [facility] Received: 07/22/2020 10:56 AM PERIOPERATIVE SERVICES Pathologist: Timur Ray MD Specimen: Plaque, left carotid plaque ARTERY, LEFT CAROTID, ENDARTERECTOMY:CALCIFIC ATHEROSCLEROTIC PLAQUE Signing Pathologist Direct Phone Line: [phone] signed by Timur Ray MD on 07/30/2020 at 6:09 [id number]; [id number] carotid stenosisPlaqueReceived in formalin labeled the patient's name, accession number and "left carotid plaque" is a 3.5 cm in length by 0.5 cm in diameter dillon-yellow tubular piece of focally calcified plaque. Pattern Lease Inspector sections are submitted in A1 following decalcification.ISABELLA Holguin, HT (ASC P)PerformedPrepare Leuko-Red [id number] 23:54:00 Test Item Value Reference Range Interpretation Comments CROSSMATCH (test code = 2264) COMPATIBLE Unit ABO (test code = O Pos 9292917) UNIT NUMBER (test code = [id number] 934-0) Status (test code = 3652938) [place]_TIMEINCHART Blood Bank Product (test code RED BLOOD CELLS = 2263) PRODUCT CODE (test code = U2244Z72 933-2) [facility] 12 [id number] 17:54:17Interface, External Ris In - 07/23/2020 5:54 PM CSTVentricular Rate 107 BPMAtrial Rate 107 BPMP-R Interval 146 msQRS Duration 86 msQ-T Interval 328 msQTC Calculation(Bazett) 437 msP [place] 66 degreesR [place] 23 degreesT [place] 34 degreesSinus tachycardiaOtherwise normal ECGWhen compared with ECG of 21-JUL-2020 16:27,T wave amplitude has decreased in Lateral leadsQT has shortenedConfirmed by MD SHIVANI, MATTY ([id number]) on 07/23/2020 5:54:13 [facility]-Glucose meter 2020-07-23 14:42:00 Test Item Value Reference Range Interpretation Comments POC-Glucose Meter (test 131 mg/dL 70-110 H : TE STED AT [facility] code = 1538) [address] [facility], [address]: Field Contractor/Techni tigre ID = [id number] for Marcell Tripp Lab Interpretation (test Abnormal code = 74966-2) [facility]-GLUCOSE [id number] 14:42:00 Test Item Value Reference Range Interpretation Comments POC-GLUCOSE METER 131 mg/dL 70-110 H : TESTED A T [facility] 6720 (BEAKER) (test code = FLORIDALMA Schmitt [facility], 1538) [address]: Field Contractor/Techni tigre ID = [id number] for Leslie Bowman Basic Metabolic [id number] 07:11:00 Test Item Value Reference Range Interpretation Comments Sodium (test code = 142 meq/L 833-630 0032-2) Potassium (test code = 3.7 meq/L 3.5-5.1 2823-3) Chloride (test code = 104 meq/L 98-107 2075-0) CO2 (test code = 31 meq/L 22-29 H 8-9) BUN (test code = 18 mg/dL 7-21 3094-0) Creatinine (test code 0.74 mg/dL 0.57-1.25 = 2160-0) Glucose (test code = 116 mg/dL 70-105 H 2345-7) Calcium (test code = 8.2 mg/dL 8.4-10.2 L 79257-5) EGFR (test code = 77 mL/min/1.73 [place] [address]-4) NOT ACCURATE CREATININE CLEARANCE IN PREDICTING GLOMERULAR FILTRATION RATE . ESTIMATED GFR I S NOT APPLICABLE FOR DIALYSIS PATIENTS. STAR (test code = STAR) Field Contractor ID - EDASI Lab Interpretation Abnormal (test code = 91623-9) [facility] Hospital[facility]esium2021-01-15 07:11:00 Test Item Value Reference Range Interpretation Comments Magnesium (test code = 1.9 mg/dL 1.6-2.6 81634-7) STAR (test code = STAR) Field Contractor ID - EDASI Lab Interpretation (test Normal code = 81426-1) [facility] HospitalPhosphorus2021-01-15 07:11:00 Test Item Value Reference Range Interpretation Comments Phosphorus (test code = 2.3 mg/dL 2.3-4.7 2777-1) STAR (test code = STAR) Field Contractor ID - EDASI Lab Interpretation (test Normal code = 50505-3) [facility] HospitalBASIC METABOLIC [id number] 07:11:00 Test Item Value Reference Range Interpretation [...] S NOT APPLICABLE FOR DIALYSIS PATIEN TS. Field Contractor ID - [id number] 07:11:00 Test Item Value Reference Range Interpretation Comments MAGNESIUM (BEAKER) (test code = 1.9 mg/dL 1.6-2.6 627) Field Contractor ID - GSEGFRXKUIPYJGM8679-75-59 07:11:00 Test Item Value Reference Range Interpretation Comments PHOSPHORUS (BEAKER) (test code = 2.3 mg/dL 2.3-4.7 604) Field Contractor ID - EDASICBC with platelet count + automated [id number] 06:17:00 Test Item Value Reference Range Interpretation Comments WBC (test code = 6690-2) 10.6 See_Comment H [A utomated message] The system Credii generated this result transmitted ref erence range: 3.5 - 10 .5 K/L. The refe rence range was not u sed to interpret this result as normal/abnor mal. RBC (test code = 789-8) 2.71 See_Comment L [Au tomated message] The system Credii generated this result transmitted ref erence range: 3.93 - 5 .22 M/L. The refe rence range was not u sed to interpret this result as normal/abnor mal. MCHC (test code = 786-4) 31.7 See_Comment L [A utomated message] The system Credii generated this result transmitted ref erence range: [...] See_Comment [Aut omated message] 777-3) The system Credii generated this result transmitted ref erence range: 150 - 45 0 K/CU MM. The referen ce range was not u sed to interpret this result as normal/abnor mal. MPV (test code = 10.1 fL 9.4-12.3 33347-2) nRBC (test code = 413) 0 See_Comment [Aut omated message] The system Credii generated this result transmitted ref erence range: [...] H [Aut omated message] 670) The system Credii generated this result transmitted ref erence range: 1.56 - 6 .13 K/L. The refe rence range was not u sed to interpret this result as normal/abnor mal. # Lymphs (test code = 1.56 See_Comment [Auto mated message] 414) The system Credii generated this result transmitted ref erence range: 1.18 - 3 .74 K/L. The refe rence range was not u sed to interpret this result as normal/abnor mal. # Monos (test code = 0.96 See_Comment H [Autom ated message] 415) The system Credii generated this result transmitted ref erence range: 0.24 - 0 .36 K/L. The refe rence range was not u sed to interpret this result as normal/abnor mal. # Eos (test code = 416) 0.02 See_Comment L [Au tomated message] The system Credii generated this result transmitted ref erence range: 0.04 - 0 .36 K/L. The refe rence range was not u sed to interpret this result as normal/abnor mal. # Baso (test code = 417) 0.04 See_Comment [A utomated message] The system Credii generated this result transmitted ref erence range: 0.01 - 0 .08 K/L. The refe rence range was not u sed to interpret this result as normal/abnor mal. Immature 1 % 0-1 Granulocytes-Relative (test code = 2801) Lab Interpretation (test Abnormal code = 21800-8) [facility] W/PLT COUNT & AUTO [id number] 06:17:00 Test Item Value Reference Range Interpretation [...] 417) IMMATURE GRANULOCYTES-RELATIVE 1 % 0-1 PERCENT ([facility]) (test code = 2801) POCT-GLUCOSE [id number] 05:16:00 Test Item Value Reference Range Interpretation Comments POC-GLUCOSE METER 122 mg/dL 70-110 H : TESTED A T [facility] 6720 ([facility]) (test code = FLORIDALMA Schmitt [facility], 1538) [address]: Field Contractor/Techni tigre ID = [id number] for VIVIENNE LOPEZ SE FQES-[id number] 00:56:00 Test Item Value Reference Range Interpretation Comments POC-Glucose (test code = 124 mg/dL 70-110 H : T ESTED AT [facility] 1855) 67[address] [facility], [address]: Field Contractor/Techni tigre ID = [id number] for ZULLY BONNER ALD Lab Interpretation (test Abnormal code = 57643-2) [facility] HospitalPOCT-[id number] 00:56:00 Test Item Value Reference Range Interpretation Comments POC-GLUCOSE 124 mg/dL 70-110 H : TESTED AT [facility] 6720 ([facility]) ([facility] code [facility], = 1855) [address]: Field Contractor/Techni tigre ID = [id number] for LESA YBARRA POC-Blood gases, [id number] 00:55:00 Test Item Value Reference Range Interpretation Comments Temp. Celsius-POC (test 97.4 code = 1834) FIO2-POC (test code = 44 1835) pH, Venous-POC (test 7.315 7.320-7.420 L : TESTE D AT [facility] code = 1842) [address] [facility], [address] PCO2, Venous-POC (test 55.6 See_Comment H If [...] mated message] code = 1844) The system Credii generated this result transmit rory reference range : 25.0 - 40.0 mm Hg. The reference r zo was not used to interpret this result as normal/abnormal . SO2, Venous-POC (test 56.0 % 40-70 code = 1845) HCO3, Venous-POC (test 28.5 meq/L 21-29 code = 1846) BE, Venous-POC (test 2.0 meq/L -2-3 : code = 1847) Field Contractor/Techni tigre ID = [id number] for BAYANG, FITZGER ALD Lab Interpretation Abnormal (test code = 80175-1) [facility]-Calcium wmvpiol2425-03-08 00:55:00 Test Item Value Reference Range Interpretation Comments POC-Calcium Ionized 1.24 mmol/L 1.12-1.27 : TESTED AT [facility] (test code = 1536) [address] [place] [address], [address]: Field Contractor/Techni tigre ID = [id number] for BAYANG, FITZGER ALD Lab Interpretation Normal (test code = 54819-8) [facility]-Lepabtjci1778-31-84 00:55:00 Test Item Value Reference Range Interpretation Comments POC-Potassium (test code 3.9 meq/L 3.6-5.5 : T ESTED AT [facility] = 1540) [address] [place] [address], [address]: Field Contractor/Techni tigre ID = [id number] for BAYANG, FITZGER ALD Lab Interpretation (test Normal code = 20628-9) [facility]-Ivtpib3524-58-34 00:55:00 Test Item Value Reference Range Interpretation Comments POC-Sodium (test code = 141 meq/L 135-148 : TE STED AT [facility] 1542) [address] [place] [address], [address]: Field Contractor/Techni tigre ID = [id number] for BAYANG, FITZGER ALD Lab Interpretation (test Normal code = 02593-2) [facility]-[id number] 00:55:00 Test Item Value Reference Range Interpretation Comments POC-Hemoglobin (test code 8.8 g/dL 12-15 L : TESTED AT [facility] = 1856) [address] [place] [address], [address]: Field Contractor/Techni tigre ID = [id number] for BAYANG, FITZGER ALD Lab Interpretation (test Abnormal code = 32607-8) [facility] HospitalPOCT-EDJKFGFIMY1101-04-70 00:55:00 Test Item Value Reference Range Interpretation Comments POC-Hematocrit (test code 26 % 36-45 L : = 1857) Field Contractor/Techni tigre ID = [id number] for ZULLY BONNER Lab Interpretation (test Abnormal code = 60029-4) [facility] HospitalPOCT-BLOOD GASES, [id number] 00:55:00 Test Item Value Reference Range Interpretation Comments TEMP, CELSIUS-POC 97.4 (BEAKER) (test code = 1834) FIO2-POC (BEAKER) 44 (test code = 1835) PH, VENOUS-POC 7.315 7.320-7.420 L : TESTED AT [facility] 6720 (BEAKER) (test code [facility], = 1842) [address] PCO2, VENOUS-POC 55.6 mm Hg 41.0-51.0 H If pO2 is > 180, pCO2 may (BEAKER) (test code be posit ively biased = 1843) PO2, VENOUS-POC 31.0 mm Hg 25.0-40.0 (BEAKER) (test code = 1844) SO2, VENOUS-POC 56.0 % 40.0-70.0 (BEAKER) (test code = 1845) HCO3, VENOUS-POC 28.5 meq/L 21.0-29.0 (BEAKER) (test code = 1846) BASE EXCESS, 2.0 meq/L -2.0-3.0 : Field Contractor/Tech ishaan ID VENOUS-POC (BEAKER) = [id number] for HA, (test code = 1847) DANO D VDAX-[id number] 00:55:00 Test Item Value Reference Range Interpretation Comments POC-SODIUM (BEAKER) 141 meq/L 135-148 : TESTED AT [facility] 6720 (test code = 1542) INDIRA [facility] [place], [address]: Field Contractor/Techni tigre ID = [id number] for LESA YBARRA [id number]-[id number] 00:55:00 Test Item Value Reference Range Interpretation Comments POC-POTASSIUM 3.9 meq/L 3.6-5.5 : TESTED AT [facility] 6720 (BEAKER) (test code [facility], = 1540) [address]: Field Contractor/Techni tigre ID = [id number] for LESA YBARRA ESEX-[id number] 00:55:00 Test Item Value Reference Range Interpretation Comments POC-HEMOGLOBIN 8.8 g/dL 12.0-15.0 L : TESTED AT [place] [address] ([facility]) (test code [facility], = 1856) [address]: Field Contractor/Techni tigre ID = [id number] for LESA YBARRA JBIV-[id number] 00:55:00 Test Item Value Reference Range Interpretation Comments POC-HEMATOCRIT 26 % 36-45 L : Field Contractor/Te chnician ID = ([facility]) (test code = 250189 for Rehana BONNER7) LESA POCT-CALCIUM [id number] 00:55:00 Test Item Value Reference Range Interpretation Comments POC-CALCIUM IONIZED 1.24 mmol/L 1.12-1.27 : TESTED AT [place] [address] ([facility]) (test code [facility], = 1536) [address]: Field Contractor/Techni tigre ID = [id number] for LESA ARIZMENDI RAD, CHEST, 1 VIEW, NON [id number] 00:55:00Reason for exam:- >desaturationShould this be performed at the bedside?->Yes [facility] 1950 Sex: FFINAL [...] of the bilateral shoulders. Signed: José Dickens Verified Date/Time: 07/23/2020 00:55:19 Electronically sig harriett by: JOSÉ DICKENS MD on 07/23/2020 12:55 AMXR chest 1 view portable / [id number] 00:55:00Interface, External Ris In - 07/23/2020 12:57 [...] of the bilateral shoulders. Signed: José Dickens Verified Date/Time: 07/23/2020 00:55:19 [facility] [id number] 00:51:00 Test Item Value Reference Range Interpretation Comments POC-GLUCOSE METER 127 mg/dL 70-110 H : TESTED A T [facility] 6720 (BEAKER) (test code = FLORIDALMA [place], 1538) [address]: Field Contractor/Techni tigre ID = [id number] for VIVIENNE LOPEZ SE BASIC METABOLIC [id number] 15:53:00 Test Item Value Reference Range Interpretation [...] S NOT APPLICABLE FOR DIALYSIS PATIEN TS. Field Contractor ID - [id number] 15:44:00 Test Item Value Reference Range Interpretation Comments MAGNESIUM (BEAKER) (test code = 2.0 mg/dL 1.6-2.6 627) Field Contractor ID - VUTNBSJXUNRBHDNSK3109-82-16 15:44:00 Test Item Value Reference Range Interpretation Comments PHOSPHORUS (BEAKER) (test code = 2.4 mg/dL 2.3-4.7 604) Field Contractor ID - AASHAILAIDLactic Acid, [id number] 15:34:00 Test Item Value Reference Range Interpretation Comments Lactate, Art (test 0.8 mmol/L 0.5-2.2 Specimen code = 2874) moderately hemolyzed STAR (test code = STAR) Field Contractor ID - AASHAILAID Lab Interpretation Normal (test code = 12365-2) [facility], [id number] 15:34:00 Test Item Value Reference Range Interpretation Comments LACTATE BLOOD 0.8 mmol/L 0.5-2.2 Specimen moder ately ARTERIAL (2) (BEAKER) hemoly zed (test code = 2874) Field Contractor ID - AASHAILAIDCBC W/PLT COUNT & AUTO [id number] 15:11:00 Test Item Value Reference Range Interpretation [...] (BEAKER) (test code = 2801) Blood gas, [id number] 15:07:00 Test Item Value Reference Range Interpretation Comments pH, Arterial (test code 7.35 7.35-7.45 = 2744-1) pCO2, Arterial (test 51 See_Comment H [Autom ated message] code = 2019-8) The system [facility] generated this result transmit rory reference range : 35 - 45 mm Hg. The reference range was not used to interpret this result as normal/abnormal . pO2, Arterial (test 112 See_Comment H [Automa rory message] code = 2703-7) The system [facility] generated this result transmit rory reference range : 80 - 90 mm Hg. The reference range was not used to interpret this result as normal/abnormal . O2 Sat, Arterial (test 97.9 % 96-97 H code = 2708-6) HCO3, Arterial (test 27 mmol/L 21-29 code = 1960-4) Base Excess, Arterial 1.2 mmol/L -2-3 (test code = 1925-7) Patient Temperature 36.4 (test code = 8310-5) FIO2 (test code = 1819) 36 Lab Interpretation Abnormal (test code = 20112-0) [facility] HospitalBLOOD GAS, [id number] 15:07:00 Test Item Value Reference Range Interpretation [...] 1819) 36.0 RAD, CHEST, 1 VIEW, NON [id number] 13:46:00Reason for exam:->s/p carotidShould this be performed at the bedside?->Yes [facility] : 1950 Sex: FFINAL [...] MDReport Verified Date/Time: 07/22/2020 13:46:15 Reading Location: [facility] Radiology Reading Room Calcium, [id number] 11:34:00 Test Item Value Reference Range Interpretation Comments Calcium, Ion (test code = 1994) 1.09 mmol/L 1.12-1.27 L pH, Blood (test code = 97018-2) 7.33 Lab Interpretation (test code = Abnormal 05453-7) [facility] HospitalHGB/HCT (H&H)-Stat [id number] 11:34:00 Test Item Value Reference Range Interpretation Comments Hemoglobin (test code = 8.4 See_Comment L [Au tomated message] 786-4) The system [employer] generated this result transmitted ref erence range: 12.0 - 1 5.0 GM/DL. The refe rence range was not u sed to interpret this result as normal/abnor mal. Hematocrit (test code = 25.0 % 36-45 L 4544-3) Lab Interpretation (test Abnormal code = 63989-8) [facility] HospitalGlucose-Stat [id number] 11:34:00 Test Item Value Reference Range Interpretation Comments Glucose (test code = 2345-7) 122 mg/dL 70-110 H Lab Interpretation (test code = Abnormal 92206-3) [facility] HospitalPotassium-Stat [id number] 11:34:00 Test Item Value Reference Range Interpretation Comments Potassium (test code = 2823-3) 3.3 meq/L 3.6-5.5 L Lab Interpretation (test code = Abnormal 58546-5) [facility] HospitalCALCIUM, [id number] 11:34:00 Test Item Value Reference Range Interpretation Comments CALCIUM IONIZED (BEAKER) (test 1.09 mmol/L 1.12-1.27 L code = 698) PH, BLOOD (BEAKER) (test code = 7.33 1810) POTASSIUM-STAT [id number] 11:34:00 Test Item Value Reference Range Interpretation Comments POTASSIUM (BEAKER) (test code = 3.3 meq/L 3.6-5.5 L 379) GLUCOSE-STAT [id number] 11:34:00 Test Item Value Reference Range Interpretation Comments GLUCOSE RANDOM (BEAKER) (test code 122 mg/dL 70-110 H = 652) HGB/HCT (H&H) - STAT [id number] 11:34:00 Test Item Value Reference Range Interpretation Comments HEMOGLOBIN (BEAKER) (test code = 8.4 GM/DL 12.0-15.0 L 410) HEMATOCRIT (BEAKER) (test code = 25.0 % 36.0-45.0 L 411) Transesophageal [id number] 10:59:28Ejection FractionSLEH ECHO HEARTLAB MKCKESSON CPACSInterface, External Ris In - 07/22/2020 10:59 AM C STTransesophageal Echocardiography Report (FRANCY) Demographics Patient Name ERICA JASON Date of Study 07/19/2020 MAIRA Gender Female Visit Number [id number] Race Unknown Room Number SCPR Number Date of 1950 Referring Physician Vincent Ferrer MD Age 70 year(s) Certified Hand Therapist Divine Hunter [facility] Interpreting Physician TYLOR Blankenship Procedure Type of Study FRANCY procedure:TRANSESOPHAGEAL ECHO [...] LVOT CO: 5.89 l/min LVOT CI: 2.89 l/min/m^[facility]/RT-PCR (Asymptomatic ONLY)2020-07-22 07:09:00 Test Item Value Reference Range Interpretation Comments SARS-COV2/RT-PCR Negative Not Detected, (test code = Negative, See 78199-6) external report for linked test SARS-COV-2 [facility] (test code = 24183-4) STAR (test code = Negative result for [...] the Act. Testing was performed using the MedicaMetrix SARS-CoV-2 assay. Fact Sheet for Healthcare Providers:https://www.engageSimply/elder/RT_SA AY-VeD-7_OPJ_Ttgn_Easpi_ 51-572825.pdf Fact Sheet for Healthcare Patients:https://www.Breathometer/eldre/RT_SAR W-GhH-8_Ncfowuy_Kkil_Hdm et_EN_51-874133Z9.pdf Performing Laboratory:[facility] [facility] [place] [address] [facility] ([facility])2020-07-22 07:09:00 Test Item Value Reference Range Interpretation Comments SARS-COV2/RT-PCR (test Negative Not Detected, Negative, code = 9101738) See external report for linked test SARS-COV-2 PERFORMING LAB [facility] PATRICIO (test code = 9506825) Negative result for this test determines that [...] of the Act.Testing was performed using the Marie SARS-CoV-2 assay.Fact Sheet for Healthcare Providers:https://www.[employer].marie/elder/ PN_DOWH-NqR-9_OYE_Ytni_Jmrqa_89-176130.pdfFact Sheet for Healthcare Patients:https://www.[employer].Digital Folio tere/elder/NR_VMXR-EcP-9_Pcqhfwp_Zjrp_Lrdse_EG_48-082147J2.pdfPerforming Laboratory:[address] [place], [place] [address]DAE W/PLT COUNT & AUTO [id number] 05:42:00 Test Item Value Reference Range Interpretation [...] (BEAKER) (test code = 2801) BASIC METABOLIC [id number] 05:35:00 Test Item Value Reference Range Interpretation [...] S NOT APPLICABLE FOR DIALYSIS PATIEN TS. Field Contractor ID - TAMICAROMA [id number] 05:35:00 Test Item Value Reference Range Interpretation Comments MAGNESIUM (BEAKER) (test code = 2.2 mg/dL 1.6-2.6 627) Field Contractor ID - PIROMA [id number] 05:35:00 Test Item Value Reference Range Interpretation Comments PHOSPHORUS (BEAKER) (test code = 2.5 mg/dL 2.3-4.7 604) Field Contractor ID - TAMICAROMA LPOCT-GLUCOSE [id number] 05:20:00 Test Item Value Reference Range Interpretation Comments POC-GLUCOSE METER 122 mg/dL 70-110 H : TESTED A T [facility] 6720 (BEAKER) (test code = [facility], 1538) [address]: Field Contractor/Techni tigre ID = [id number] for CHEVY ROUSSEAU (V)BRIDGER POCT-GLUCOSE [id number] 21:05:00 Test Item Value Reference Range Interpretation Comments POC-GLUCOSE METER 150 mg/dL 70-110 H : TESTED A T [facility] 6720 (BEAKER) (test code = [facility], 1538) [address]: Field Contractor/Techni tigre ID = [id number] for YONI BENNETT POCT-GLUCOSE [id number] 16:43:00 Test Item Value Reference Range Interpretation Comments POC-GLUCOSE METER 156 mg/dL 70-110 H : TESTED A T [facility] 6720 (BEAKER) (test code = [facility], 153) [address]: Field Contractor/Techni tigre ID = [id number] for ILYA FRIEDMAN [id number] 16:06:00 Test Item Value Reference Range Interpretation Comments PTT (test code = 01222-2) 30.3 See_Comment [ Automated message] The system whic h generated this result transmitted ref erence range: 22.5 - 3 6.0 seconds. The re ference range was not u sed to interpret this result as normal/abnor mal. Lab Interpretation (test Normal code = 91531-5) [facility] HospitalAPTT2021-01-13 16:06:00 Test Item Value Reference Range Interpretation Comments PARTIAL THROMBOPLASTIN TIME 30.3 seconds 22.5-36.0 (BEAKER) (test code = 760) Prothrombin time/[id number] 16:05:00 Test Item Value Reference Interpretation Comments Range Protime (test code = 14.1 See_Comment [Autom ated 1372-2) message] The system which generated this result transmitted reference range : 11.9 - 14.2 seconds. The reference range was not used to interpret this result as normal/abnormal . INR (test code = 1.12 See_Comment [Automated 5861-6) message] The system which generated this result [...] valves. Lab Interpretation Normal (test code = 91122-1) [facility] HospitalPROTHROMBIN TIME/[id number] 16:05:00 Test Item Value Reference Range Interpretation [...] for patients wiht mechanical heart valves.BASIC METABOLIC [id number] 04:00:00 Test Item Value Reference Range Interpretation [...] S NOT APPLICABLE FOR DIALYSIS PATIEN TS. Field Contractor ID - LIBIA SYBJAAKGZQ8999-03-14 04:00:00 Test Item Value Reference Range Interpretation Comments MAGNESIUM (BEAKER) (test code = 1.9 mg/dL 1.6-2.6 627) Field Contractor ID Pearl REZA [id number] 04:00:00 Test Item Value Reference Range Interpretation Comments PHOSPHORUS (BEAKER) (test code = 2.4 mg/dL 2.3-4.7 604) Field Contractor ID Pearl REZA WCBC W/PLT COUNT & AUTO [id number] 03:54:00 Test Item Value Reference Range Interpretation [...] PERCENT (BEAKER) (test code = 2801) POCT-GLUCOSE [id number] 18:33:00 Test Item Value Reference Range Interpretation Comments POC-GLUCOSE METER 124 mg/dL 70-110 H : TESTED Temo Ortiz [facility] 6720 (BEAKER) (test code = [place], 1538) [address]: Field Contractor/Techni tigre ID = [id number] for LAURIE VILLASENOR POCT-GLUCOSE [id number] 11:58:00 Test Item Value Reference Range Interpretation Comments POC-GLUCOSE METER 92 mg/dL 70-110 : TESTED Temo Ortiz [facility] 6720 (JOHNY) (test code = FL[place]IDALMA [place], 1538) [address]: Field Contractor/Techni tigre ID = [id number] for LAURIE VILLASENOR 2D Echo W/Doppler(CW/PW/Color)2020-07-20 09:54:32Ejection FractionSLEH ECHO HEARTLAB MKCKESSON CPACSInterface, External Ris In - 07/20/2020 9:54 AM C STTransthoracic Echocardiography Report (TTE) Demographics Patient Name ERICA JASON Date of Study 07/19/2020 MAIRA Gender Female Visit Number [id number] Race Unknown Room Number 2C25 Number Date of 1950 Referring Physician Hayden Lewis Age 70 year(s) Certified Hand Therapist Tyshawn Arambula [facility] Interpreting Sheila Evans MD PhysicianFelldominic Pascual MD [...] 22.73 mmHg Pulmonic Valve Estimated PASP: 32.73 mmHgKaiser Foundation HospitalPOCT- GLUCOSE [id number] 07:06:00 Test Item Value Reference Range Interpretation Comments POC-GLUCOSE METER 87 mg/dL 70-110 : TESTED A T [facility] 6720 (BEAKER) (test code = [place], 1538) [address]: Field Contractor/Techni tigre ID = [id number] for HEBERT QUINONEZ (V)JANELL BASIC METABOLIC [id number] 04:37:00 Test Item Value Reference Range Interpretation [...] S NOT APPLICABLE FOR DIALYSIS PATIEN TS. Field Contractor ID - ALEKSEY [id number] 04:37:00 Test Item Value Reference Range Interpretation Comments MAGNESIUM (BEAKER) (test code = 1.6 mg/dL 1.6-2.6 627) Field Contractor ID - ALEKSEY [id number] 04:37:00 Test Item Value Reference Range Interpretation Comments PHOSPHORUS (BEAKER) (test code = 4.0 mg/dL 2.3-4.7 604) Field Contractor ID - ALEKSEY [facility]BC W/PLT COUNT & AUTO [id number] 03:55:00 Test Item Value Reference Range Interpretation [...] PERCENT (BEAKER) (test code = 2801) POCT-GLUCOSE [id number] 23:44:00 Test Item Value Reference Range Interpretation Comments POC-GLUCOSE METER 129 mg/dL 70-110 H : TESTED A T [facility] 6720 (BEAKER) (test code = [place], 1538) [address]: Field Contractor/Techni tigre ID = [id number] for BRIDGER SURESH LACTIC ACID, [id number] 17:57:00 Test Item Value Reference Range Interpretation Comments LACTATE BLOOD 0.8 mmol/L 0.5-2.2 Specimen moder ately ARTERIAL (2) (BEAKER) hemoly zed (test code = 2874) Field Contractor ID - DBBLOOD GAS, [id number] 17:43:00 Test Item Value Reference Range Interpretation [...] 1819) 36.0 Urinalysis w/Microscopic + Reflex to [id number] 16:52:00 Test Item Value Reference Range Interpretation Comments Color, UA (test code Yellow = 5778-6) Clarity, UA (test Clear code = 5767-9) Specific [place], UA 1.027 1.001-1.035 (test code = 5811-5) pH, UA (test code = 5.5 5.0-8.0 5803-2) Protein, UA (test 10 mg/dL Negative A code = 88705-3) Glucose, UA (test Negative Negative code = 365) Ketones, UA (test Trace Negative A code = 2514-8) Bilirubin, UA (test Negative Negative code = 29465-9) Blood, UA (test code Negative Negative = 11531-3) Nitrite, UA (test Negative Negative code = 5802-4) Leukocytes, UA (test Negative Negative code = 5799-2) Urobilinogen, UA 0.2 mg/dL 0.2-1 (test code = 45925-9) RBC, UA (test code = 2 See_Comment [Autom ated 22477-9) message] The system which generated this result [...] . Bacteria, UA (test Rare code = 90003-0) Mucus (test code = Rare 8247-9) Squam Epithel, UA 1 See_Comment [Automate d (test code = 89230-5) messag e] The system which generated this result transmit rory reference range : /HPF. The reference range was not used to interpret this result as normal/abnormal . Hyaline Casts, UA 12 See_Comment [Automate d (test code = 85878-3) messag e] The system which generated this result transmit rory reference range : /LPF. The reference range was not used to interpret this result as normal/abnormal . Crystals, Urine (test Rare code = 06840-1) Specimen Source (test code = 2795) STAR (test code = STAR) Field Contractor ID - [auto]Field Contractor ID - tech Lab Interpretation Abnormal (test code = 97471-4) [facility] HospitalURINALYSIS W/ REFLEX URINE [id number] 16:52:00 Test Item Value Reference Range Interpretation [...] = 1521) SOURCE(BEAKER) (test code = 2795) Field Contractor ID - [auto]Field Contractor ID - [id number] 16:39:00 Test Item Value Reference Range Interpretation Comments Cortisol, Total (test 85.0 ug/dL 3.7-19.4 H code = 2755) STAR (test code = STAR) Field Contractor ID - DBOperator ID - DB Lab Interpretation (test Abnormal code = 64778-2) [facility] HospitalCORTISOL2021-01-11 16:39:00 Test Item Value Reference Range Interpretation Comments CORTISOL, TOTAL (BEAKER) (test 85.0 ug/dL 3.7-19.4 H code = 2755) Field Contractor ID - DBOperator ID - DBTSH/Free T4 If [id number] 16:06:00 Test Item Value Reference Range Interpretation Comments TSH (test code = 0.749 See_Comment [Automated 21724-9) message] The system which generated this result transmit rory reference range : 0.350 - 4.940 uIU/mL. The reference range was not used to interpret this result as normal/abnormal . STAR (test code = STAR) Field Contractor ID - DB Lab Interpretation Normal (test code = 62915-1) [facility] HospitalTSH/FREE T4 IF [id number] 16:06:00 Test Item Value Reference Range Interpretation Comments THYROID STIMULATING HORMONE 0.749 uIU/mL 0.350-4.940 (BEAKER) (test code = 772) Field Contractor ID - DBComprehensive metabolic [id number] 15:34:00 Test Item Value Reference Range Interpretation [...] 3.2 g/dL 3.5-5 L Specime n slightly 02380-3) hemolyzed Alkaline Phosphatase 43 U/L 40-150 (test code = 6768-6) Total Bilirubin (test 0.5 mg/dL 0.2-1.2 Specim en slightly code = 1975-2) hemolyzed Sodium (test code = 141 meq/L 704-617 4156-2) Potassium (test code 4.0 meq/L 3.5-5.1 Specime n slightly = 2823-3) hemolyzed Chloride (test code = 108 meq/L 98-107 H 2074-0) CO2 (test code = 26 meq/L 22-29 2027-9) BUN (test code = 13 mg/dL 7- 3094-0) Creatinine (test code 0.92 mg/dL 0.57-1.25 Specim en slightly = 2160-0) hemolyzed Glucose (test code = 152 mg/dL 70-105 H 2345-7) Calcium (test code = 9.3 mg/dL 8.4-10.2 81252-3) AST (test code = 22 U/L 5-34 Specimen sl ightly 1920-8) hemolyzed ALT (test code = 8 U/L 6-55 Specimen sl ightly 1742-6) hemolyzed EGFR (test code = 60 mL/min/1.73 [place] [address]-5) NOT ACCURATE CREATININE CLEARANCE IN PREDICTING GLOMERULAR FILTRATION RATE . ESTIMATED GFR I S NOT APPLICABLE FOR DIALYSIS PATIEN TS. STAR (test code = STAR) Field Contractor ID - DB Lab Interpretation Abnormal (test code = 49176-5) [facility]MAGN[facility]-01-11 15:34:00 Test Item Value Reference Range Interpretation Comments MAGNESIUM (BEAKER) 1.7 mg/dL 1.6-2.6 Specimen slightly (test code = 627) hemolyzed Field Contractor ID - [id number] 15:34:00 Test Item Value Reference Range Interpretation Comments PHOSPHORUS (BEAKER) 3.9 mg/dL 2.3-4.7 Specimen slightly (test code = 604) hemolyzed Field Contractor ID - DBCOMPREHENSIVE METABOLIC [id number] 15:34:00 Test Item Value Reference Range Interpretation [...] S NOT APPLICABLE FOR DIALYSIS PATIEN TS. Field Contractor ID - DBPT/[id number] 15:30:00 Test Item Value Reference Interpretation Comments Range Protime (test code = 13.9 See_Comment [Autom ated 3092-2) message] The system which generated this result transmitted reference range : 11.9 - 14.2 seconds. The reference range was not used to interpret this result as normal/abnormal . INR (test code = 1.11 See_Comment [Automated 4291-6) message] The system which generated this result transmitted reference range : <=5.90. The reference range was not used to interpret this result as normal/abnormal . PTT (test code = 24.3 See_Comment [Automated 38211-2) message] The system which generated this result [...] valves. Lab Interpretation Normal (test code = 71002-2) [facility] HospitalPT/[id number] 15:30:00 Test Item Value Reference Range Interpretation [...] is2.5-3.5 for patients wiht mechanical heart valves.PROTHROMBIN TIME/[id number] 15:29:00 Test Item Value Reference Range Interpretation [...] for patients wiht mechanical heart valves.LACTIC ACID, [id number] 15:26:00 Test Item Value Reference Range Interpretation Comments LACTATE BLOOD 0.9 mmol/L 0.5-2.2 Specimen moder ately ARTERIAL (2) (BEAKER) hemoly zed (test code = 2874) Field Contractor ID - DBRAD, CHEST, 1 VIEW, NON [id number] 15:22:00For chest painReason for exam:->post-operativeShould this be performed at the bedside?->YesCH[facility] : 1950 Sex: FFINAL [...] MDReport Verified Date/Time: 07/19/2020 15:22:42 Reading Location: [facility] Radiology Reading Room CBC W/PLT COUNT & AUTO [id number] 15:19:00 Test Item Value Reference Range Interpretation [...] PERCENT (BEAKER) (test code = 2801) Platelet [id number] 14:43:00 Test Item Value Reference Range Interpretation Comments Platelets (test code 428 See_Comment [Autom ated = 777-3) message] The system which generated this result transmit rory reference range : 150 - 450 K/CU MM. The reference range was not u sed to interpret th is result as normal/abnormal . STAR (test code = STAR) Field Contractor ID - [id number] Lab Interpretation Normal (test code = 43716-0) [facility] HospitalPLATELET [id number] 14:43:00 Test Item Value Reference Range Interpretation Comments PLATELET COUNT (BEAKER) (test 428 K/CU MM 150-450 code = 756) Field Contractor ID - [id number]-STAT [id number] 14:39:00 Test Item Value Reference Range Interpretation Comments GLUCOSE RANDOM (BEAKER) (test code 157 mg/dL 70-110 H = 652) Only if arterial line present.HGB/HCT (H&H) - STAT [id number] 14:39:00 Test Item Value Reference Range Interpretation Comments HEMOGLOBIN (BEAKER) (test code = 12.0 GM/DL 12.0-15.0 410) HEMATOCRIT (BEAKER) (test code = 35.0 % 36.0-45.0 L 411) Only if arterial line present.BLOOD GAS, [id number] 14:39:00 Test Item Value Reference Range Interpretation [...] 1819) 44.0 Only if arterial line present.CALCIUM, [id number] 14:39:00 Test Item Value Reference Range Interpretation Comments CALCIUM IONIZED (BEAKER) (test 1.35 mmol/L 1.12-1.27 H code = 698) PH, BLOOD (BEAKER) (test code = 7.31 1810) Sodium Na-Stat [id number] 14:37:00 Test Item Value Reference Range Interpretation Comments Sodium (test code = 138 meq/L 679-435 9644-2) STAR (test code = STAR) Only if arterial line present. Lab Interpretation (test Normal code = 71985-6) [facility] [id number] 14:37:00 Test Item Value Reference Range Interpretation Comments SODIUM (BEAKER) (test code = 381) 138 meq/L 136-145 Only if arterial line present.POTASSIUM-STAT [id number] 14:37:00 Test Item Value Reference Range Interpretation Comments POTASSIUM (BEAKER) (test code = 3.5 meq/L 3.6-5.5 L 379) Only if arterial line present.ABORH, [id number] 09:19:00 Test Item Value Reference Range Interpretation Comments ABO Grouping (test code = 2588) O Rh Factor (test code = 2589) POS [facility] ([facility])2020-07-16 14:33:00 Test Item Value Reference Range Interpretation Comments SARS-COV2/RT-PCR (test Negative Not Detected, Negative, code = 6615981) See external report for linked test SARS-COV-2 PERFORMING LAB [facility] PATRICIO (test code = 3792809) Negative result for this test determines that [...] 564(g) of the Act.Fact Sheet for Healthcare Providers:https://www.[employer].com/sites/default/files/product/documents/Fact_Shee t_US_Tkfmdlsds_Pbib_JRJE-MeX-2.pdfFact Sheet for Healthcare Patients:https://www.[employer]/sites/default/files/product/ documents/Ecul_Blglb_Jmrdigzi_Himv_HYCZ-BqY-9.pdfPerforming Laboratory:[facility], [place] [address]Wfpe and screen, automated ([facility])2020-07-16 10:31:00 Test Item Value Reference Range Interpretation Comments ABO/RH AUTOMATED (BEAKER) (test O POSITIVE code = 2260) Ab Scrn (test code = 890-4) NEGATIVE [facility]
[2020-11-08] MEDS ORDERED: ALBUTEROL 2.5 MG/3 ML NEB SOL ONE (21:33)
[2020-11-08] MEDS ORDERED: IPRATROPIUM BROM 0.5MG/2.5ML ONE (21:33)
[2020-11-08 21:46] LABS: Absolute Lymphocytes (CBC) 1.3 K/uL (0.7-4.9); Basophils % 1.1 % (0-1.3); Hematocrit 24.1 % (36.0-45.0); Lymphocytes % 13.4 % (15.3-44.8); RBC Red Blood Cell Count 2.86 M/uL (3.86-4.86)
[2020-11-08 21:52] LABS: Protime INR 1.12
[2020-11-08] MEDS ORDERED: METHYLPREDNISOLONE 125 MG INJ ONE (21:58)
[2020-11-08 22:07] LABS: Albumin 3.5 g/dL (3.4-5.0); Bilirubin Direct 0.1 mg/dL (0-0.2); Bilirubin Total 0.3 mg/dL (0.2-1.0); Potassium 4.4 mmol/L (3.5-5.1); Protein, Total 7.2 g/dL (6.4-8.2); Troponin (Emerg Dept Use Only) 0.07 ng/mL (0.0-0.045)
[2020-11-08 22:46] LABS: SARS-COV-2 RT PCR NEGATIVE (NEGATIVE)
--- NOTE | 2020-11-08 23:18 | ER ---
Nurse's Notes [facility] Name: Susana Jaffe Age: 70 yrs Sex: Female : 1950 Arrival Date: 11/08/2020 Time: 20:09 Bed 17 Private MD: Jarad Ruano Diagnosis: Congestive heart failure;Anemia, unspecified Presentation: 11/08 20:21 Chief complaint: Spouse and/or significant other states: Reports she took a shower and ea started feeling short of breath about 30 minutes ago. Coronavirus screen: At this time, the client does not indicate any symptoms associated with coronavirus-19. Ebola Screen: No symptoms or risks identified at this time. Initial Sepsis Screen: Does the patient meet any 2 criteria? HR > 90 bpm. Does the patient have a suspected source of infection? No. Patient's initial sepsis screen is negative. Risk Assessment: Do you want to hurt yourself or someone else? Patient reports no desire to harm self or others. Onset of symptoms was November 08, 2020. 20:21 Method Of Arrival: Wheelchair ea 20:21 Acuity: CINDY 2 bb Triage Assessment: 20:27 Respiratory: Onset: The symptoms/episode began/occurred jul 2020. zb Historical: - Allergies: 20:24 Iodine; ea - PMHx: 20:24 ruptured colon; Hypothyroidism; Hypertension; Hyperlipidemia; Cancer, Breast; ea - PSHx: 20:24 Carotid surgery; back - NO MRI; Right shoulder; Mastectomy Left; Hysterectomy; colon ea resection; Cholecystectomy; Appendectomy; Thyroidectomy; Tonsillectomy; - Immunization history:: Adult Immunizations up to date, Client reports receiving the 2nd dose of the Covid vaccine, Date received: October 23, 2020 Client reports receiving the 1st dose of the Covid vaccine, October 02, 2020. - Social history:: Smoking status: unknown. Screenin:23 Abuse screen: Denies threats or abuse. Nutritional screening: No deficits noted. ea Tuberculosis screening: No symptoms or risk factors identified. Fall Risk None identified. Assessment: 20:24 General: Appears uncomfortable, Behavior is calm, cooperative, appropriate for age. zb Pain: Denies pain. Neuro: Level of Consciousness is awake, alert, obeys commands. Cardiovascular: Capillary refill < 3 seconds Patient's skin is warm and dry. Edema pitting to left midcalf, left ankle, right midcalf and right ankle Rhythm is regular. Cardiovascular: Reports shortness of breath, Chest pain is denied. Respiratory: Reports shortness of breath at rest Airway is patent Respiratory effort is shallow, using tripod position, Breath sounds are clear bilaterally. the patient has moderate shortness of breath Denies cough, pain with respiration, pain with cough, pain with movement. GI: Abdomen is round. Derm: Skin is intact, is healthy with good turgor. Musculoskeletal: Range of motion: intact in all extremities. 21:30 Reassessment: Patient appears in no apparent distress at this time. Patient and/or zb family updated on plan of care and expected duration. Pain level reassessed. neb mask on at this time. patient RR has decreased. appears to be more comfortable. 22:19 Reassessment: Patient appears in no apparent distress at this time. Patient and/or zb family updated on plan of care and expected duration. Pain level reassessed. ECP at bedside discussing care with patient. neb tx completed. 23:45 Reassessment: Patient appears in no apparent distress at this time. Patient and/or zb family updated on plan of care and expected duration. Pain level reassessed. pt remains on RA at this time. able to ambulate to restroom. family remains at bedside. 23:55 Reassessment: report given to LINCOLN valle patient moved to room 17 with a hospital bed. zulay 11/09 00:13 Reassessment: patient appears SOB replaced on 2L of NC, hospitalist at bedside. zyolis notified LINCOLN Valle - saturations at 95%. Vital Signs: 11/08 20:21 BP 116 / 72; Pulse 118; Resp 32; Temp 97.4; Pulse Ox 98% on 3 lpm NC; Weight 98.43 kg; ea Height 5 ft. 6 in. (167.64 cm); 21:30 BP 123 / 79; Pulse 113; Resp 25; Pulse Ox 100% on 5% Nebulizer Mask; zb 22:30 BP 102 / 65; Pulse 89; Resp 22; Pulse Ox 91% on R/A; zb 23:35 BP 126 / 95; Pulse 94; Resp 23; Pulse Ox 94% on R/A; zb 20:21 Body Mass Index 35.02 (98.43 kg, 167.64 cm) ea ED Course: 20:09 Patient arrived in ED. bp1 20:22 Ajit Bates NP is PHCP. pm1 20:22 Osvaldo Hartley MD is Attending Physician. pm1 20:23 Triage completed. ea 20:23 Virgie Soliman RN is Primary Nurse. zb 20:24 Patient has correct armband on for positive identification. Bed in low position. Call ea light in reach. 20:27 Arm band placed on. zb 21:12 XRAY Chest (1 view) In Process Unspecified. EDMS 21:39 No provider procedures requiring assistance completed. Inserted saline lock: 22 gauge mg2 in right hand, using aseptic technique. Blood collected. 23:18 Monty Pablo MD is Hospitalizing Provider. pm1 05/04 00:23 Carolynn Rothmna MD is Hospitalizing Provider. pm1 12:03 Jarad Ruano MD is Private Physician. ld1 17:57 Patient admitted, IV remains in place. ld1 Administered Medications: 11/08 21:15 Drug: Albuterol - atroVENT (ipratropium) (3:1) (2.5 mg - 0.5 mg) 3 ml Route: Nebulizer; zb 22:16 Follow up: Response: No adverse reaction; Marked relief of symptoms zb 21:41 Drug: SOLU-Medrol (methylPrednisoLONE) 125 mg Route: IVP; Site: right hand; zb 22:16 Follow up: Response: No adverse reaction; Marked relief of symptoms zb Output: 23:30 Urine: 300ml (Voided); Total: 300ml. zb Outcome: 23:18 Decision to Hospitalize by Provider. pm1 05/04 17:56 Admitted to ER Hold. Please see [employer] for further documentation. ld1 Condition: stable Instructed on the need for admit. 17:57 Patient left the ED. ld1 Signatures: Dispatcher [employer] EDMS Susana Pearl RN RN bb Marinas, Patrick, NP [employer] pm1 Alia Miller RN RN ea Gardose, Michele, RN RN [facility] [place] Clarissa Gomez [facility] Virgie Soliman RN RN zb Mignon Mg RN RN ld1 Corrections: (The following items were deleted from the chart) 05/03 20:30 20:21 Acuity: CINDY 3 ea bb
--- NOTE | 2020-11-08 23:19 | EDPHYS ---
Physician Documentation [facility] Name: Susana Jaffe Age: 70 yrs Sex: Female : 1950 Arrival Date: 11/08/2020 Time: 20:09 Bed 17 Private MD: Jarad Ruano ED Physician Osvaldo Hartley HPI: 11/08 21:06 This 70 yrs old Female presents to ER via Wheelchair with complaints of pm1 Shortness Of Breath, COPD Exacerbation. 21:06 The patient has shortness of breath at rest. Onset: The symptoms/episode began/occurred pm1 today. Duration: The symptoms are continuous. The patient's shortness of breath is aggravated by Has not been taking lasix recently, is alleviated by nothing. Associated signs and symptoms: Pertinent negatives: chest pain, non-productive cough, productive cough, fever. Severity of symptoms: in the emergency department the symptoms are worse. Recently diagnosed with COPD about [address] Pablo. The patient has been recently seen by a physician: Follow up with Dr. Parra on Sunday. Lasix daily was recommended. Patient has not been taking it. Historical: - Allergies: 20:24 Iodine; ea - PMHx: 20:24 ruptured colon; Hypothyroidism; Hypertension; Hyperlipidemia; Cancer, Breast; ea - PSHx: 20:24 Carotid surgery; back - NO MRI; Right shoulder; Mastectomy Left; Hysterectomy; colon ea resection; Cholecystectomy; Appendectomy; Thyroidectomy; Tonsillectomy; - Immunization history:: Adult Immunizations up to date, Client reports receiving the 2nd dose of the Covid vaccine, Date received: October 23, 2020 Client reports receiving the 1st dose of the Covid vaccine, October 02, 2020. - Social history:: Smoking status: unknown. ROS: 21:06 Constitutional: Negative for fever, chills, and weight loss. pm1 21:06 Abdomen/GI: Negative for abdominal pain, nausea, vomiting, diarrhea, and constipation, Back: Negative for injury and pain, MS/Extremity: Negative for injury and deformity, Skin: Negative for injury, rash, and discoloration, Neuro: Negative for headache, weakness, numbness, tingling, and seizure. 21:06 Cardiovascular: Positive for edema, Negative for chest pain. 21:06 Respiratory: Positive for shortness of breath. Exam: 21:06 Neck: Trachea midline, no thyromegaly or masses palpated, and no cervical pm1 lymphadenopathy. Supple, full range of motion without nuchal rigidity, or vertebral point tenderness. No Meningismus. Chest/axilla: Normal chest wall appearance and motion. Nontender with no deformity. No lesions are appreciated. 21:06 Back: No spinal tenderness. No costovertebral tenderness. Full range of motion. Skin: Warm, dry with normal turgor. Normal color with no rashes, no lesions, and no evidence of cellulitis. MS/ Extremity: Pulses equal, no cyanosis. Neurovascular intact. Full, normal range of motion. 21:06 Constitutional: The patient appears alert, awake, non-diaphoretic, non-toxic, well developed, well hydrated, well groomed, well nourished, uncomfortable. 21:06 Cardiovascular: Exam negative for acute changes, Rate: tachycardic, Rhythm: regular, Pulses: no pulse deficits are appreciated. 21:06 Respiratory: mild respiratory distress is noted, Respirations: tachypnea, Breath sounds: decreased breath sounds, are located in both bases. 21:06 Neuro: Exam negative for acute changes, Orientation: is normal, Mentation: is normal, Motor: is normal, moves all fours. Vital Signs: 20:21 BP 116 / 72; Pulse 118; Resp 32; Temp 97.4; Pulse Ox 98% on 3 lpm NC; Weight 98.43 kg; ea Height 5 ft. 6 in. (167.64 cm); 21:30 BP 123 / 79; Pulse 113; Resp 25; Pulse Ox 100% on 5% Nebulizer Mask; zb 22:30 BP 102 / 65; Pulse 89; Resp 22; Pulse Ox 91% on R/A; zb 23:35 BP 126 / 95; Pulse 94; Resp 23; Pulse Ox 94% on R/A; zb 20:21 Body Mass Index 35.02 (98.43 kg, 167.64 cm) ea MDM: 20:34 Patient medically screened. pm1 23:01 Counseling: I had a detailed discussion with the patient and/or guardian regarding: the pm1 historical points, exam findings, and any diagnostic results supporting the discharge/admit diagnosis, lab results, radiology results, the need for further work-up and treatment in the hospital. 23:14 Physician consultation: Reece MASON was called at 23:16, was contacted at 23:14, pm1 regarding admission, patient's condition, and will see patient in ED, shortly, would like further tests performed, d-dimer. 11/09 00:03 Data reviewed: vital signs. Data interpreted: Pulse oximetry: on room air is 94 %. pm1 Interpretation: for COPD hx. 11/08 20:29 Order name: Basic Metabolic Panel; Complete Time: 22:14 pm1 11/08 20:29 Order name: CBC with Diff; Complete Time: 22:14 pm1 11/08 20:29 Order name: LFT's; Complete Time: 22:14 pm1 11/08 20:29 Order name: Magnesium; Complete Time: 22:14 pm1 11/08 20:29 Order name: NT PRO-BNP; Complete Time: 22:14 pm1 11/08 20:29 Order name: PT-INR; Complete Time: 00:23 pm1 11/08 20:29 Order name: Troponin (emerg Dept Use Only); Complete Time: 22:14 pm1 11/08 22:46 Order name: COVID-19/FLU A+B; Complete Time: 22:53 EDMS 11/08 23:29 Order name: D-Dimer; Complete Time: 00:23 EDMS 11/09 03:37 Order name: CBC with Automated Diff EDMS 11/09 03:51 Order name: Comprehensive Metabolic Panel EDMS 11/09 03:51 Order name: Phosphorus EDMS 11/09 03:51 Order name: Lipid Profile EDMS 11/09 03:51 Order name: T4 Free EDMS 11/09 03:51 Order name: Magnesium EDMS 11/09 03:51 Order name: Thyroid Stimulating Hormone EDMS 11/09 04:35 Order name: Manual Differential EDMS 11/09 05:04 Order name: Type and Screen EDMS 11/09 05:21 Order name: Troponin I EDMS 11/09 05:21 Order name: Transferrin Sat/Iron Binding EDMS 11/09 05:21 Order name: Ferritin EDMS 11/09 05:21 Order name: Folic Acid, (Folate) EDMS 11/09 05:21 Order name: Vitamin B12 Level EDMS 11/09 07:33 Order name: Urinalysis EDMS 11/09 07:51 Order name: Urine Microscopic Only EDTX 11/09 09:54 Order name: Troponin I EDTX 11/09 09:54 Order name: Lactate EDTX 11/08 20:29 Order name: XRAY Chest (1 view) pm1 11/08 20:29 Order name: EKG; Complete Time: 20:30 pm1 11/08 20:29 Order name: Cardiac monitoring; Complete Time: 21:12 pm1 11/08 20:29 Order name: EKG - Nurse/Tech; Complete Time: 21:12 pm1 11/08 20:29 Order name: IV Saline Lock; Complete Time: 21:42 pm1 11/08 20:29 Order name: Labs collected and sent; Complete Time: 21:42 pm1 11/08 20:29 Order name: O2 Per Protocol; Complete Time: 21:12 pm1 11/08 20:29 Order name: O2 Sat Monitoring; Complete Time: 21:12 pm1 11/09 00:43 Order name: CONS Physician Consult EDTX 11/09 10:05 Order name: Procalcitonin EDTX Administered Medications: 11/08 21:15 Drug: Albuterol - atroVENT (ipratropium) (3:1) (2.5 mg - 0.5 mg) 3 ml Route: Nebulizer; zb 22:16 Follow up: Response: No adverse reaction; Marked relief of symptoms zb 21:41 Drug: SOLU-Medrol (methylPrednisoLONE) 125 mg Route: IVP; Site: right hand; zb 22:16 Follow up: Response: No adverse reaction; Marked relief of symptoms zb Disposition: 11/09 19:01 Co-signature as Attending Physician, Osvaldo Hartley MD. rn Disposition: 11/08/20 23:18 Hospitalization ordered by Carolynn Rothman for Inpatient Admission. Preliminary diagnosis are Congestive heart failure, Anemia, unspecified. - Bed requested for [facility] ER HOLD. - Status is Inpatient Admission. ld1 - Condition is Stable. - Problem is new. - Symptoms have improved. Signatures: Dispatcher [employer] EDTX Osvaldo Hartley MD MD rn Garcia, Cindy, RN RN cg Marinas, Patrick, NP PEDIATRIC RADIOLOGIST pm1 Alia Miller RN RN ea Brown, Zipporah, RN RN zb Mignon Mg RN RN ld1 Corrections: (The following items were deleted from the chart) 11/08 21:57 20:29 CORONAVIRUS+MR.LAB.BRZ ordered. EDTX EDTX 21:57 20:29 Influenza Screen (A \T\ B)+BA.LAB.BRZ ordered. EDTX EDMS 23:28 23:15 D-DIMER+COAG.LAB.BRZ ordered. EDTX EDMS 23:55 23:43 Chest For PE Angio+CT.RAD.BRZ ordered. EDTX EDTX 23:56 23:18 Hospitalization Ordered by Monty Pablo MD for Inpatient Admission. Preliminary diagnosis is Congestive heart failure; Anemia, unspecified. Bed requested for Telemetry/MedSurg (Inpatient). Status is Inpatient Admission. Condition is Stable. Problem is new. Symptoms have improved. pm1 11/09 00:23 05 23:56 11/08/2020 23:18 Hospitalization Ordered by Monty Pablo MD for pm1 Inpatient Admission. Preliminary diagnosis is Congestive heart failure; Anemia, unspecified. Bed requested for [facility] ER HOLD. Status is Inpatient Admission. Condition is Stable. Problem is new. Symptoms have improved. 11/09 17:57 00:23 11/08/2020 23:18 Hospitalization Ordered by Carolynn Rothman MD for Inpatient ld1 Admission. Preliminary diagnosis is Congestive heart failure; Anemia, unspecified. Bed requested for [facility] ER HOLD. Status is Inpatient Admission. Condition is Stable. Problem is new. Symptoms have improved. pm1
[2020-11-08] MEDS ORDERED: FUROSEMIDE 40 MG/4 ML VIAL ONE (23:34)
[2020-11-09] MEDS ORDERED: ONDANSETRON 4 MG/2 ML VIAL IV PRN (01:20)
[2020-11-09] MEDS ORDERED: ACETAMINOPHEN 500 MG TAB PO PRN (01:20)
[2020-11-09] MEDS ORDERED: ALBUTEROL 2.5 MG/3 ML NEB SOL NEB PRN (01:20)
[2020-11-09] MEDS ORDERED: MELATONIN 5 MG TABLET PO PRN (02:05)
--- NOTE | 2020-11-09 02:18 | P.HP ---
Certification for Inpatient Patient admitted to: Inpatient With expected LOS: >2 Midnights Patient will require the following post-hospital care: None Practitioner: I am a practitioner with admitting privileges, knowledge of patient current condition, hospital course, and medical plan of care. Services: Services provided to patient in accordance with Admission requirements found in Title 42 Section 412.3 of the Code of Federal Regulations Patient History Date of Service: 11/09/20 Primary Care Provider: Bindu Reason for admission: volume overload, elevated troponin History of Present Illness: Ms. Jaffe is a 70 yo F with HTN, HLD, hypothyroidism, h/o of breast cancer, and s/p carotid endarterectomy 07/2020 on ASA + plavix here today for increased SOB and EM exacerbated when moving around. She says these symptoms first began in July. She was recently admitted to the hospital in September with chronic cough with green sputum and was started on new inhalers for suspected COPD exacerbation, outpatient PFTs pending. At that time she was also seen by cardiology and told to followup for outpatient ECHO. She saw her computational linguist Sunday, and was told to restart her home Lasix which she has not yet done. Now she is without cough or sputum production, but reports orthopnea, edema, and wheezing. Denies fever, chest pain. She says she has been using her rescue inhaler more often with mild relief. Currently sats 97% on 3L of O2. Denies history of anemia, on daily ASA+plavix. Denies hematemesis, hematochezia, melena. She smoked 1.5 ppd and stopped in July. Hgb 7.7. Trop 0.07. BNP 399. Ddimer 1400. Well's Score 0. Allergies iodine Allergy (Verified 06/30/20 15:31) Anaphylaxis/Hemorrhage/Hives Home Medications: Ascorbic Acid [Vitamin C] 500 mg PO DAILY 09/21/20 Aspirin [Aspirin EC] 81 mg PO DAILY 09/21/20 Atorvastatin Calcium [Lipitor] 20 mg PO BEDTIME 09/21/20 Clopidogrel Bisulfate [Plavix*] 75 mg PO DAILY 09/21/20 Fenofibrate [Tricor*] 145 mg PO DAILY 09/21/20 Metoprolol Tartrate [Lopressor] 25 mg PO DAILY 09/21/20 - Past Medical/Surgical History -: Carotid artery disease -: HTN -: HLD -: breast cancer -: hypothyroidism -: mastectomy -: carotid endarterectomy -: back surgery -: right shoulder -: hysterectomy -: colon resection -: cholecystectomy -: appendectomy, thyroidectomy, tonsillectomy - Family History Mother -: Heart disease Father -: Diabetes, Cancer - Social History Smoking Status: Former smoker Alcohol use: No CD- Drugs: No Caffeine use: Yes Place of Residence: Home Review of Systems General: Unremarkable Eyes: Unremarkable ENT: Unremarkable Respiratory: Shortness of Breath, SOB with Excertion, Wheezing, As per HPI Cardiovascular: Orthopnea, Edema, As per HPI Gastrointestinal: Unremarkable Genitourinary: Unremarkable Musculoskeletal: Unremarkable Integumentary: Unremarkable Neurological: Unremarkable Lymphatics: Unremarkable Physical Examination - Physical Exam General: Alert, In no apparent distress, Oriented x3, Cooperative HEENT: Atraumatic, Normocephalic, PERRLA, Mucous membr. moist/pink, EOMI, Sclerae nonicteric Neck: Supple, 2+ carotid pulse no bruit, JVD not distended, No Thyromegaly, No LAD Respiratory: Normal air movement, Crackles/rales Cardiovascular: Normal pulses, Normal S1 S2, No gallops, No rubs, No murmurs, Edema Capillary refill: <2 Seconds Gastrointestinal: Normal bowel sounds, Soft and benign, Non-distended, No asc ites, No tenderness, No masses, No rebound, No guarding Musculoskeletal: No clubbing, No swelling, No contractures, No erythema, No tenderness, No warmth Integumentary: No rashes, No breakdown, No significant lesion, No tenderness/swelling, No erythema, No warmth, No cyanosis Neurological: Normal speech, Normal strength at 5/5 x4 extr, Normal tone, Sensation intact, Cranial nerves 3-12 intact, Normal affect Lymphatics: No axilla or inguinal lymphadenopathy - Studies Laboratory Data (last 24 hrs) 11/08/20 21:35: PT 12.9 H, INR 1.12 11/08/20 21:35: WBC 9.50, Hgb 7.7 L*, Hct 24.1 L, Plt Count 446 H 11/08/20 21:35: Sodium 142, Potassium 4.4, BUN 15, Creatinine 0.84, Glucose 91, Magnesium 2.0, Total Bilirubin 0.3, AST 20, ALT 16, Alkaline Phosphatase 49 Assessment and Plan - Problems (Diagnosis) (1) Hypertension Current Visit: Yes Status: Chronic Qualifiers: Hypertension type: essential hypertension Qualified Code(s): I10 - Essential (primary) hypertension (2) HLD (hyperlipidemia) Current Visit: Yes Status: Chronic Qualifiers: Hyperlipidemia type: unspecified Qualified Code(s): E78.5 - Hyperlipidemia, unspecified (3) Hypothyroidism Current Visit: Yes Status: Chronic Qualifiers: Hypothyroidism type: unspecified Qualified Code(s): E03.9 - Hypothyroidism, unspecified (4) Volume overload Current Visit: Yes Status: Acute Qualifiers: Hypervolemia type: unspecified Qualified Code(s): E87.70 - Fluid overload, unspecified (5) Anemia Current Visit: Yes Status: Chronic Qualifiers: Anemia type: unspecified type Qualified Code(s): D64.9 - Anemia, unspecified (6) Elevated troponin Current Visit: Yes Status: Acute - Plan will obtain type & screen, iron panel + B12/folate, heme occult pending, SCDs as DVT ppx will transfuse to Hgb goal >7 O2 as needed, breathing treatments q6hr PRN IV Lasix BID, will monitor I&Os, fluid restrict to 1500cc daily, low sodium diet will trend troponins and EKG, denies chest pain, likely demand ischemia cardiology consulted for possible CHF Ddimer elevated, allergic to iodine, Well's score of 0, will continue to monitor will continue home BP medications and statin, levothyroxine recently held, TSH/T4 pending Discharge Plan: Home Plan to discharge in: 24 Hours - Advance Directives Does patient have a Living Will: Yes Does patient have a Durable POA for Healthcare: Yes - Code Status/Comfort Care Code Status Assessed: Yes (full code) Critical Care: No Time Spent Managing Pts Care (In Minutes): 70
[2020-11-09] MEDS: IPRATROPIUM BROM 0.5MG/2.5ML NEB SCH ×3 (02:40→13:35)
[2020-11-09] MEDS ORDERED: IPRATROPIUM BROM 0.5MG/2.5ML ONE ×4 (03:08→13:43)
[2020-11-09 03:26] LABS: Absolute Lymphocytes (CBC) 0.5 K/uL (0.7-4.9); Basophils % 0.6 % (0-1.3); Lymphocytes % 5.6 % (15.3-44.8); MPV 7.2 fL (7.6-11.3); RBC Red Blood Cell Count 2.75 M/uL (3.86-4.86)
[2020-11-09 03:51] LABS: Albumin 3.5 g/dL (3.4-5.0); Bilirubin Total 0.3 mg/dL (0.2-1.0); Phosphorus 3.2 mg/dL (2.5-4.9); Potassium 4.4 mmol/L (3.5-5.1); Protein, Total 7.1 g/dL (6.4-8.2); Thyroid Stimulating Hormone 1.49 uIU/mL (0.360-3.740)
[2020-11-09 04:35] LABS: Blood Morphology Comment NOT SEEN (NOT SEEN); Platelet Estimate INCR
[2020-11-09 05:21] LABS: Ferritin 14.9 ng/mL (8-388); Folic Acid, (Folate) 4.4 ng/mL (3.1-17.5); Troponin I 0.12 ng/mL (0.0-0.045)
[2020-11-09 06:30] VITALS: BMI 34.2
--- NOTE | 2020-11-09 07:05 | RAD REPORT ---
EXAM DESCRIPTION: RAD - Chest Single View - 11/08/2020 9:14 pm CLINICAL HISTORY: SOB COMPARISON: September 21 TECHNIQUE: AP portable chest image was obtained 11/08/2020 9:14 pm . FINDINGS: No peripheral mass or consolidation. Heart size is similar comparison. There is vascular e ngorgement and increased interstitial opacification. Bilateral costophrenic angle blunting is present probably from small pleural effusions. No acute bony abnormality seen. No acute aortic findings susp ected. IMPRESSION: Mild CHF/volume overload pattern.
[2020-11-09 07:32] LABS: Urine Appearance CLOUDY (Clear); Urine Bilirubin NEGATIVE (Negataive); Urine Blood NEGATIVE (Negative); Urine Color YELLOW (Yellow); Urine Glucose NEGATIVE (Negative); Urine Protein NEGATIVE (Negative); Urine Urobilinogen 0.2 mg/dL (0.2-1.0)
[2020-11-09 07:33] LABS: Urine Microscopic Reflex ORDER UMIC
[2020-11-09 07:50] LABS: Urine Bacteria NONE SEEN /HPF (<20); Urine RBC NONE SEEN /HPF (NONE SEEN)
[2020-11-09 07:51] LABS: Urine Mucus LIGHT /HPF (NONE SEEN)
[2020-11-09] MEDS ORDERED: FUROSEMIDE 40 MG/4 ML VIAL IV SCH (09:00)
[2020-11-09] MEDS ORDERED: FUROSEMIDE 40 MG/4 ML VIAL ONE (09:03)
[2020-11-09] MEDS ORDERED: ALPRAZOLAM 0.5 MG TABLET PO ONE (10:06)
[2020-11-09] MEDS ORDERED: ALPRAZOLAM 0.5 MG TABLET ONE (10:10)
--- NOTE | 2020-11-09 11:17 | EKG ---
Test Date: 2020-11-08 Test Time: 21:09:12 Wax Pattern Repairer: JESSIE MEASUREMENT RESULTS: Intervals: Rate: 116 [place]: QRSD: 78 QT: 322 QTc: 447 [place]: P: [place]: QRS: 51 T: 57 INTERPRETIVE STATEMENTS: Accelerated Junctional rhythm with occasional premature ventricular complexes Septal infarct, age undetermined Abnormal ECG Compared to ECG 09/21/2020 13:25:04 Accelerated junctional rhythm now present Myocardial infarct finding now present Sinus tachycardia no longer present ST (T wave) deviation no longer present Electronically Signed On 11-09-20 11:17:02 CDT by Joel Shaver
[2020-11-09] MEDS ORDERED: SOD FERRIC GLUC COMPLX/SUCROSE 125 MG in NA CHLORIDE 0.9% 100 ML IV STA (14:09)
--- NOTE | 2020-11-09 14:11 | P.DS ---
Discharge Date: 11/09/20 Primary Care Provider: Bindu Disposition: ROUTINE DISCHARGE Discharge Condition: GOOD Reason for Admission: volume overload, elevated troponin Consultations: Eating Disorder Psychologist Brief History of Present Illness: Ms. Jaffe is a 70 yo F with HTN, HLD, hypothyroidism, h/o of breast cancer, and s/p carotid endarterectomy 07/2020 on ASA + plavix here today for increased SOB and EM exacerbated when moving around. She says these symptoms first began in July. She was recently admitted to the hospital in September with chronic cough with green sputum and was started on new inhalers for suspected COPD exacerbation, outpatient PFTs pending. At that time she was also seen by cardiology and told to followup for outpatient ECHO. She saw her alumni coordinator Sunday, and was told to restart her home Lasix which she has not yet done. Now she is without cough or sputum production, but reports orthopnea, edema, and wheezing. Denies fever, chest pain. She says she has been using her rescue inhaler more often with mild relief. Currently sats 97% on 3L of O2. Denies history of anemia, on daily ASA+plavix. Denies hematemesis, hematochezia, melena. She smoked 1.5 ppd and stopped in July. Hgb 7.7. Trop 0.07. BNP 399. Ddimer 1400. Well's Score 0. Allergies Hospital Course: Patient was diuresed and patient is clinically doing well. Patient is anemic and may benefit from blood transfusion but at this time there was no big change in the hemoglobin. Patient will need close outpatient follow up. Patient will need to see hematology for workup for the low hemoglobin. Outpatient follow-up with PCP in 1-2 weeks. Vital Signs/Physical Exam: Temp Pulse Resp BP Pulse Ox 98.4 F 112 H 16 107/66 96 11/09/20 11:41 11/09/20 11:41 11/09/20 11:41 11/09/20 11:41 11/09/20 11:41 General: Alert, In no apparent distress, Oriented x3 Laboratory Data at Discharge: WBC 9.10 K/uL (4.3-10.9) 11/09/20 02:53 Hgb 7.6 g/dL (12.0-15.0) L* 11/09/20 02:53 Hct 23.0 % (36.0-45.0) L 11/09/20 02:53 Plt Count 458 K/uL (152-406) H 11/09/20 02:53 PT 12.9 SECONDS (9.5-12.5) H 11/08/20 21:35 INR 1.12 11/08/20 21:35 Sodium 142 mmol/L (136-145) 11/09/20 02:53 Potassium 4.4 mmol/L (3.5-5.1) 11/09/20 02:53 BUN 15 mg/dL (7-18) 11/09/20 02:53 Creatinine 0.88 mg/dL (0.55-1.3) 11/09/20 02:53 Glucose 143 mg/dL (74-106) H 11/09/20 02:53 Phosphorus 3.2 mg/dL (2.5-4.9) 11/09/20 02:53 Magnesium 2.0 mg/dL (1.8-2.4) 11/09/20 02:53 Total Bilirubin 0.3 mg/dL (0.2-1.0) 11/09/20 02:53 AST 23 U/L (15-37) 11/09/20 02:53 ALT 16 U/L (12-78) 11/09/20 02:53 Alkaline Phosphatase 47 U/L (45-117) 11/09/20 02:53 Troponin I 0.10 ng/mL (0.0-0.045) H 11/09/20 09:26 Triglycerides 37 mg/dL (<150) 11/09/20 02:53 Cholesterol 123 mg/dL (<200) 11/09/20 02:53 HDL Cholesterol 59 mg/dL (40-60) 11/09/20 02:53 Cholesterol/HDL Ratio 2.08 11/09/20 02:53 Home Medications: Ascorbic Acid [Vitamin C*] 500 mg PO DAILY 09/21/20 Aspirin [Aspirin EC] 81 mg PO DAILY 09/21/20 Atorvastatin Calcium [Lipitor*] 20 mg PO BEDTIME 09/21/20 Clopidogrel Bisulfate [Plavix*] 75 mg PO DAILY 09/21/20 Fenofibrate [Tricor*] 145 mg PO DAILY 09/21/20 Alprazolam [Xanax] 0.5 mg PO BID PRN #30 tablet 05/04/21 Cyanocobalamin/Cobamamide [Vitamin B-12 5,000 Mcg Tab Sl] 1 each SL DAILY #30 t ab.subl 11/09/20 Ferrous Sulfate [Ferrous Sulfate Elixir] 5 ml PO Q12H #300 ml 11/09/20 Folic Acid 1 mg PO DAILY #30 tablet 11/09/20 Metoprolol Tartrate [Lopressor*] 25 mg PO BID #60 tab 11/09/20 New Medications: Ferrous Sulfate [Ferrous Sulfate Elixir] 5 ml PO Q12H #300 ml Folic Acid 1 mg PO DAILY #30 tablet Metoprolol Tartrate [Lopressor*] 25 mg PO BID #60 tab Cyanocobalamin/Cobamamide [Vitamin B-12 5,000 Mcg Tab Sl] 1 each SL DAILY #30 tab.subl Alprazolam [Xanax] 0.5 mg PO BID PRN #30 tablet PRN Reason: Anxiety Physician Discharge Instructions: OK TO DC IV AND DC HOME FOLLOW-UP WITH PCP IN 1-2 WEEKS FOLLOW-UP WITH CARDIOLOGY & HEMATOLOGY IN 1-2 WEEKS RETURN TO THE ER IF SYMPTOMS WORSENS CALL ME AT [phone] IF ANY QUESTIONS REGARDING HOSPITAL STAY Diet: AHA Activity: Fall precautions Followup: Unknown,U [Primary Care Provider] - Time spent managing pt's care (in minutes): 35
[2020-11-09 14:43] VITALS: O2SAT 94
[2020-11-09] MEDS ORDERED: NA CHLORIDE 0.9% 250 ML ONE (15:02)
[2020-11-09 16:02] VITALS: BP 140/53; TEMP 98.1
[2020-11-09] MEDS ORDERED: ATORVASTATIN 20 MG TAB PO SCH (21:00)
[2020-11-10] MEDS ORDERED: METOPROLOL TAR 25 MG TAB PO SCH (09:00)
[2020-11-10] MEDS ORDERED: CLOPIDOGREL 75 MG TABLET PO SCH (09:00)
[2020-11-10] MEDS ORDERED: ASPIRIN EC 81 MG TAB PO SCH (09:00)
[2020-11-10] MEDS ORDERED: ASCORBIC ACID 500 MG TABLET PO SCH (09:00)
[2020-11-10] MEDS ORDERED: FENOFIBRATE 160 MG TAB PO SCH (09:00)
--- NOTE | 2020-11-11 00:28 | CON ---
Date of Consultation: 11/09/2020 History Of Present Illness: Congestive heart failure. History Of Present Illness: Ms. Jaffe is a 70-year-old white woman, has a history of cerebrovascular disease, status post recent carotid endarterectomy. She has a history of hypothyroidism, breast canc er that had been cured, hypertension, dyslipidemia, chronic diastolic congestive heart failure, came in with shortness of breath, pedal edema, PND and orthopnea that happens suddenly. She has already d iuresed on IV Lasix and is feeling better. Past Medical History: As stated above. Allergies: INCLUDE IODINE. Review of Systems: Negative. Social History: Negative. Family History: Noncontributory. Medications: At home include metformin, , metoprolol, aspirin, Plavix, Lipitor, and Tricor . Physical Examination: Vital Signs: Stable. She was afebrile. HEENT: Negative. Neck: Supple without any bruit, lymphadenopathy, JVD, or thyromegaly. Chest: Reveals some rales at both bases. Cardiac: Exam revealed a regular rhythm and rate with an S4 gallop. Abdomen: Benign. Extremities: Revealed no clubbing, cyanosis, or edema. Diagnostic Data: Showed EKG showed LVH. Chest x-ray showed CHF. Hemoglobin was 7.6. Troponin is 0 .07. BNP was 399. Impression And Plan: 1.Acute on chronic diastolic congestive heart failure. 2.Severe anemia. 3.Elevated troponin and BNP secondary to congestive heart failure. 4.Cerebrovascular disease, status post carotid endarterectomy recently. 5.History of hypothyroidism. 6.Hypertension. 7.Dyslipidemia. 8.History of breast cancer that has been cured. I think Ms. Jaffe needs to be transfused. She needs to have a GI workup later. I think she may have . She needs to continue her metoprolol, Plavix, aspirin, Lipitor and Tricor. I think she needs to go home on Lasix 40 mg 1 p.o. b.i.d., and I will see her in the office soon. She has had a negative stress test in the past before her carotid endarterectomy, but if she keeps having problems with acute pulmonary edema like this, I may perform a heart catheterization on her to rule out left m ain disease. Case was discussed with Dr. Rothman. CHAR/MARK Voice ID: [id number] Report ID: [id number]
--- NOTE | 2020-11-11 07:26 | EKG ---
Test Date: 2020-11-09 Test Time: 07:21:21 Pediatric Physical Therapy Assistant: Jessica Watson MEASUREMENT RESULTS: Intervals: Rate: 89 [place]: 144 QRSD: 82 QT: 384 QTc: 467 [place]: P: 65 [place]: 144 QRS: 18 T: 41 INTERPRETIVE STATEMENTS: Normal sinus rhythm Normal ECG Compared to ECG 11/08/2020 21:09:12 Accelerated junctional rhythm no longer present Ventricular premature complex(es) no longer present Myocardial infarct finding no longer present Electronically Signed On 11-11-20 07:18:58 CDT by Joel Shaver
== END 2020-11-09 17:59 | disposition home or self-care (01) ==
LOC: ER 20:07 → ERHOLD 11-09 01:04 → INTOOBSV 11-09 01:04
PROVIDERS: ADMIT Hospitalist; ATTEND Hospitalist
DX: I11.0 Hypertensive heart disease with heart failure (principal); I50.33 Acute on chronic diastolic (congestive) heart failure; D64.9 Anemia, unspecified; E03.9 Hypothyroidism, unspecified; E78.5 Hyperlipidemia, unspecified; Z20.822 Contact with and (suspected) exposure to COVID-19; Z87.891 Personal history of nicotine dependence
CPT/HCPCS: 36430; 93005 ×2; 85025 ×2; 80048; 36415; 86900; 83735 ×2; 86850; 84100; 85610; 80061; 86901; 85379; 80076; 83605; 84443; 84484 ×3; 84439; 82728; 82746; 82607; 83540; 80053; 84145; 83880; 0240U; 84466; 71045; 94640; 94760; J1940 ×2; J2916; P9016; J7050; J2930; G0378 ×2; 81003; 81015; 96374; 99285

== ENCOUNTER 2021-03-12 13:21 | Inpatient (IN) | payer OTHER ==
--- OUTSIDE RECORDS SUMMARY | 2021-03-12 13:26 | XMS REPORT | Continuity of Care Document ---
:[address] [facility] t Address [address] [place] [address] Care Team Providers Name Role Phone Bindu Primary Care Physician Therapy, Covid Infusion Attending Clinician Unavailable Temo Smith MD Attending Clinician Edis Ferrer MD Attending Clinician EDIS FERRER Attending Clinician Unavailable Prince SNIDER Attending Clinician Hitesh Novak MD Attending Clinician Unavailable Moy Nowak MD Attending Clinician Gary Mason MD Attending Clinician Bonnie Arellano MD Attending Clinician Unavailable Alexandria STARK Attending Clinician Unavailable EDIS FERRER Admitting Clinician Unavailable Payers Payer Name Policy Type Policy Number Effective Date Expiration Date S ource Problems Condition Condition Condition Status Onset Resolution Last Treating Co mments Source Name Details Category Date Date Treatment Clinician Date s/p L CEA s/p L CEA Disease Active [facility] - Carissa - Carissa - 00:00: Medi danny 07/22/20 07/22/20 00 Center 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 00:00: Medical occlusion occlusion 00 Cent er Smoker Smoker Disease Active [facility]05 [facility] Medical 00 Center Paroxysmal Paroxysmal Disease Active [facility] atrial atrial 1-05 [facility] - fibrillati fibrillati 00:00: Me dical on on Center Essential Essential Disease Active [facility] hypertensi hypertensi 07-13 Antonia kes - on on 00:00: Medical 00 [place] Dyslipidem Dyslipidem Disease Active [facility] ia ia 07-13 [facility] - 00:00: Medical 00 [place] 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 Lateral, [...] Type Date Date Clinician Iodine Propensi Active Anaphylaxis Uni vers ty to 03-11 ity of adverse 00:00: [place] reaction 00 Medical s Branch Shellfis Propensi Active Anaphylaxis Throat [facility] h ty to 07-14 swelling [facility] - Containi adverse 00:00: Medical ng reaction 00 Center Products s Allergen Drug Active Other (See [facility] ic Allergy Comments) 04-01 [facility] - Extracts 00:00: Medical 00 [place] Iodine Propensi Active Methodi And ty to 01-11 st Iodide adverse 00:00: Hospita Containi reaction 00 l ng s to Products drug Iodine Drug Active Anaphylaxis Throat [facility] t And Allergy 01-11 swelling [facility] - Iodide 00:00: Medical Containi 00 Center ng Products Other Propensi Active "Seafood" [facility] t ty to 01-11 "Cats" [facility] - adverse 00:00: Medical reaction 00 Center s Iodine Adverse Active Info Not [facility] Reaction Available [facility] Cat Hair Adverse Active Info Not [facility] t Extract Reaction Available [facility] Family History Family Member Diagnosis Comments Start Date Stop Date Source Natural father Cancer [facility] Natural father Cancer [facility] Natural mother Heart disease [facility] mother Hypertension [facility] Natural mother Heart disease [facility] Natural brother Heart disease [facility] Social History Social Habit Start Date Stop Date Quantity Comments Source History of tobacco Cigarette Smoker [facility] use [facility] History SDOH [facility] - Alcohol Std Drinks Medica Center History SDOH [facility] - Alcohol Binge Medical Krystian ter Sex Assigned At [facility] Cigarettes smoked 2020-08-05 2020-08-05 [facility] - current (pack per 00:00:00 00:00:00 [facility] day) - Reported Cigarette 2020-08-05 2020-08-05 [facility] - pack-years 00:00:00 00:00:00 [facility] Tobacco use and 2020-08-05 2020-08-05 Never used [facility] - exposure 00:00:00 00:00:00 [facility] Alcohol intake 2020-08-05 2020-08-05 [facility]:00:00 non-drinker Medical Cente r (finding) History SDOH 2020-07-13 2020-07-13 1 [facility] - Alcohol Frequency 00:00:00 00:00:00 [facility] Smoking Status Start Date Stop Date Source Unknown if ever smoked [facility] Current every day smoker 2020-08-05 00:00:00 [facility] Medications Ordered Filled Start Stop Current Ordering Indication Dosage Frequency Signature Comments Components Source Medication Medication Date Date Medication? Clinician (SIG) Name Name charito 2020- No [id number] 1200mg 1,200 [facility] 03[facility]11 09-03 Subcutaneo it y of (REGEN-COV 17:15: 15:57 us, ONCE, [place] (EUA)) 00 :00 1 dose, Medical injection 03/11/21 Bran ch 1,200 mg at 1215, Routine lisinopril- Yes 1{tbl} QD Take [address] hydroCHLORO -28 tablet by Cordelia es - thiazide 12:33: mouth Medical (PRINZIDE,Z 40 daily. [place] ESTORETIC) 20-12.5 mg per tablet ascorbic Yes 500mg QD Take [address] acid, 1-28 mg by [facility]ukes - vitamin C, 12:32: mouth Medica l (ascorbic 02 daily. [place] acid with gael hips) 500 MG tablet multivitami Yes 1{tbl} QD Take [address] n per 08-05 tablet by [facility] - tablet 12:30: mouth Medical 35 daily. [place] aspirin 81 Yes 81mg QD Take [address] MG EC 08-05 by mouth [facility] - tablet 12:30: daily. Medical 35 [place] clopidogreL Yes 75mg QD Take [address] (PLAVIX) 75 08-05 by mouth Luke s - mg tablet 12:30: daily. Medica l 35 [place] atorvastati 2021- No 20mg QD Take [address] n (LIPITOR) 16 07-24 tablet (20 L ukes - 20 MG 00:00: 23:59 mg total) Medica l tablet 00 :00 by mouth Center daily. simvastatin 2020- No 40mg QD Take [address] (ZOCOR) 40 07-23 by mouth Luke s - MG tablet 11:48: 00:00 daily. Medic al 29 :00 [place] metoprolol 2021- No 12.5mg Q.5D Take 0.[address] tartrate 15 07-23 tablets [facility]ukes - (LOPRESSOR) 00:00: 23:59 (12.5 mg M edical 25 MG 00 :00 total) by Center tablet mouth 2 (two) times daily. furosemide No 20mg QD Take [address] (LASIX) 20 -15 -15 tablet (20 Antonia kes - MG tablet 00:00: 23:59 mg total) Me dical 00 :00 by mouth Center daily. potassium No 10meq QD Take [address] chloride -15 - tablet (10 Luke s - (KLOR-CON) 00:00: 23:59 mEq total) Medical 10 MEQ CR 00 :00 by mouth Center tablet daily. traMADoL 2020- No 50mg Take [address] (ULTRAM) 50 -23 07- tablet (50 L ukes - mg tablet 00:00: 23:59 mg total) Me dical 00 :00 by mouth Center every 6 (six) hours as needed for up to 10 days. Max Daily Amount: 200 mg chlorhexidi No 118mL [facility] ne 07-16 [facility] - (HIBICLENS) 08:37: 09:08 Medic al external 20 :29 [place] liquid 4% metoprolol 2019-07 No 25mg Q.5D Take [address] tartrate 07-25 by mouth 2 Luke s - (LOPRESSOR) 00:00: 00:00 (two) Medi danny 25 MG 00 :00 times Center tablet daily. levothyroxi 2019-07 Yes 25ug QD Take [address] ne 1-04 mcg by [facility]ukes - (SYNTHROID, 00:00: mouth Medic al LEVOTHROID) 00 daily. [place] 25 MCG tablet fenofibrate 2019-07 Yes 145mg QD Take [address] (TRICOR) 0-15 mg by [facility]ukes - 145 MG 00:00: mouth Medical tablet 00 daily. Center omeprazole 2019-07- No 40mg QD Take [address] (PriLOSEC) 0-09 08 by mouth Luke s - 40 MG 00:00: 00:00 daily. Medical capsule 00 :00 Center Tylenol # 3 Tylenol # 3 Yes Migel one tab [facility] 8-27 [facility] - 00:00: Memoria 00 l Outpati ent Clinics aspirin Yes 81mg QD Take 81 mg Meth irasema (ECOTRIN) 1-[address] 81 MG 16:42: daily. Hospita enteric 15 l coated tablet lisinopril- Yes 1{tbl} QD Take 1 Me thodi hydrochloro 1-[address] thiazide 16:42: mouth Hospita (PRINZIDE,Z 15 daily. l ESTORETIC) 20-12.5 mg per tablet simvastatin Yes 40mg QD Take 40 mg Methodi (ZOCOR) 40 1-[address] MG tablet 16:42: daily. Hospit a 15 l fenofibrate Yes 145mg QD Take 145 M ethodi (TRICOR) 7-[address] 145 MG 00:00: mouth once Hospi ta tablet 00 daily. l levothyroxi Yes 25ug QD Take 25 Met hodi ne 7-[address] (SYNTHROID, 00:00: mouth once Hospita LEVOTHROID) 00 daily. l 25 MCG tablet Multivitami Multivitami Yes Migel not [facility] n Adult n Adult Donald defined Luke [facility] - [facility] Aspirin 81 Aspirin 81 Yes Migel not [facility] Donald defined [facility] Lisinopril- Lisinopril- Yes Migel not [facility] Hydrochloro Hydrochloro Donald defined Lukes - thiazide thiazide Memoria l Outpati ent Clinics Simvastatin Simvastatin Yes Migel not [facility] Donald defined [facility] Fenofibrate Fenofibrate Yes Migel not [facility] Bennett defined [facility] Levothyroxi Levothyroxi Yes [facility] not [facility] ne Sodium ne Sodium Donald defined [facility] Acetaminoph Acetaminoph Yes Migel not [facility] en-Codeine en-Codeine Donald defined Lukes - #3 #3 Memoria l Outpati ent Clinics Immunizations Ordered Filled Immunization Date Status Comments [facility] e Immunization Name Name SARS-COV-2 COVID-19 2020-10-23 Completed Unive rsity of PFIZER VACCINE 00:00:00 [facility] SARS-COV-2 COVID-19 2020-10-03 Completed Unive rsity of PFIZER VACCINE 00:00:00 [facility] Vital Signs Vital Name Observation Time Observation Value Comments Source Systolic blood 2021-03-11 16:53:00 109 mm[Hg] Univer sity of [facility] Diastolic blood 2021-03-11 16:53:00 62 mm[Hg] Unive rsity [facility] Heart rate 2021-03-11 16:53:00 92 /min [facility] Body temperature 2021-03-11 16:53:00 36.67 [facility] Respiratory rate 2021-03-11 16:53:00 18 /min [facility] Oxygen saturation in 2021-03-11 16:53:00 94 /min [facility] Arterial blood by [facility] Pulse oximetry Branch Body height 2021-03-11 15:58:00 167.6 cm [facility] Body weight 2021-03-11 15:58:00 99.791 kg [facility] BMI 2021-03-11 15:58:00 35.51 kg/m2 [facility] Systolic blood 2020-08-05 12:28:00 124 mm[Hg] [facility] Diastolic blood 2020-08-05 12:28:00 60 mm[Hg] [facility] S [facility] Heart rate 2020-08-05 12:28:00 85 /min [facility] Body temperature 2020-08-05 12:28:00 37 Nallely [facility] Respiratory rate 2020-08-05 12:28:00 18 /min [facility] Body height 2020-08-05 12:28:00 167.6 cm [facility] Body weight 2020-08-05 12:28:00 97.523 kg [facility] BMI 2020-08-05 12:28:00 34.70 kg/m2 [facility] Oxygen saturation in 2020-08-05 12:28:00 96 /min room iar [facility] Arterial blood by Medical Ce nter Pulse oximetry Procedures Procedure Date / Time Performing Clinician Source Performed PREPARE LEUKO-REDUCED RBC 2020-07-23 23:54:00 Sandy Freed [facility] POCT-GLUCOSE METER 2020-07-23 14:31:00 Carissa [facility] BASIC METABOLIC PANEL (7) 2020-07-23 06:02:00 Elio Gallardoscar MCNEAL I [facility] CBC W/PLT COUNT & AUTO 2020-07-23 06:02:00 Jonathan Gallardolily [facility] S [facility] DIFFERENTIAL [facility] MAGNESIUM 2020-07-23 06:02:00 Jonathan Gallardoscar [facility] PHOSPHORUS 2020-07-23 06:02:00 [facility] POCT-GLUCOSE METER 2020-07-23 05:04:00 Carissa, [facility] ECG 12-LEAD 2020-07-23 01:57:40 Jovan Nunes [facility] XR CHEST 1 VIEW PORTABLE / 2020-07-23 00:49:00 Vincent Ferrer [facility] BEDSIDE [facility] POCT-GLUCOSE METER 2020-07-23 00:39:00 Carissa, [facility] POCT-BLOOD GASES, VENOUS 2020-07-23 00:34:00 Carissa, [facility] POCT-SODIUM 2020-07-23 00:34:00 Carissa [facility] POCT-POTASSIUM 2020-07-23 00:34:00 Carissa, [facility] POCT-HEMOGLOBIN 2020-07-23 00:34:00 Carissa [facility] POCT-HEMATOCRIT 2020-07-23 00:34:00 Carissa [facility] POCT-CALCIUM IONIZED 2020-07-23 00:34:00 Carissa [facility] POCT-GLUCOSE 2020-07-23 00:34:00 Carissa, [facility] TRANSFUSE LEUKO-REDUCED 2020-07-22 20:20:19 Sandy Freed [facility] - RED BLOOD CELLS [facility] BLOOD GAS, ARTERIAL 2020-07-22 14:58:[address] [facility] CBC W/PLT COUNT & AUTO 2020-07-22 14:57:00 Sandy Freed [facility] BASIC METABOLIC PANEL (7) 2020-07-22 14:57:00 Sandy Freed [facility] MAGNESIUM 2020-07-22 14:57:00 Sandy Freed [facility] PHOSPHORUS 2020-07-22 14:57:00 Sandy Freed [facility] LACTIC ACID, ARTERIAL 2020-07-22 14:57:00 Sandy Freed [facility] XR CHEST 1 VIEW PORTABLE / 2020-07-22 13:18:[address] [facility] CALCIUM, IONIZED 2020-07-22 11:14:00 [facility] POT[facility] 2020-07-22 11:13:00 [facility] GLUCOSE-STAT LAB 2020-07-22 11:13:00 [facility] H[facility]HCT (H&H) - STAT LAB 2020-07-22 11:13:00 Jonathan Gallardoscar [facility] TISSUE EXAM 2020-07-22 09:13:00 Carissa [facility] ENDARTERECTOMY,CAROTID 2020-07-22 07:29:00 Vincent Ferrer [facility] POCT-GLUCOSE METER 2020-07-22 05:08:00 Carissa [facility] MAGNESIUM 2020-07-22 05:00:00 Trish Gallardo [facility] PHOSPHORUS 2020-07-22 05:00:00 Jonathan Gallardoscar [facility] CBC W/PLT COUNT & AUTO 2020-07-22 05:00:00 Mita Nowak [facility] BASIC METABOLIC PANEL (7) 2020-07-22 05:00:00 Beram, Jihad [facility] POCT-GLUCOSE METER 2020-07-21 20:53:00 [facility] POCT-GLUCOSE METER 2020-07-21 16:28:00 [facility] ECG 12-LEAD 2020-07-21 16:27:56 Unknown, Hl7 [facility] SARS-COV2/RT-PCR ([facility] & 2020-07-21 15:18:00 [facility] - REF LABS) [facility] PROTHROMBIN TIME/INR 2020-07-21 15:18:00 [facility] APTT 2020-07-21 15:18:00 [facility] R & L CATH (+/- SATS & 2020-07-21 08:41:00 Mita Nowak [facility] S [facility] - CARDIAC OUTPUT) [facility] CBC W/PLT COUNT & AUTO 2020-07-21 03:24:00 Liborio Motley [facility] S t [facility] DIFFERENTIAL [facility] BASIC METABOLIC PANEL (7) 2020-07-21 03:24:00 AlexanderJonathanscar [facility] MAGNESIUM 2020-07-21 03:24:00 [facility] PHOSPHORUS 2020-07-21 03:24:00 [facility] POCT-GLUCOSE METER 2020-07-20 18:21:00 [facility] 12-LEAD 2020-07-20 17:37:05 Unknown, Hl7 [facility] POCT-GLUCOSE METER 2020-07-20 11:46:00 [facility] POCT-GLUCOSE METER 2020-07-20 06:54:00 [facility] CBC W/PLT COUNT & AUTO 2020-07-20 03:32:00 Liborio Motley [facility] S t [facility] DIFFERENTIAL [facility] BASIC METABOLIC PANEL (7) 2020-07-20 03:32:00 AlexanderJonathan valdivialily MCNEAL I [facility] MAGNESIUM 2020-07-20 03:32:00 Alexandershea [facility] PHOSPHORUS 2020-07-20 03:32:00 Alexandershea [facility] POCT-GLUCOSE METER 2020-07-19 23:30:[address] [facility] LACTIC ACID, ARTERIAL 2020-07-19 17:30:00 Tiesha [facility] BLOOD GAS, ARTERIAL 2020-07-19 17:30:00 Tiesha [facility] 2D ECHO W/ DOPPLER 2020-07-19 17:18:13 Hayden Lewis [facility] (CW/PW/COLOR) [facility] URINALYSIS W/ REFLEX URINE 2020-07-19 16:38:00 Liborio Motley [facility] CBC W/PLT COUNT & AUTO 2020-07-19 15:07:00 Tiesha [facility] COMPREHENSIVE METABOLIC 2020-07-19 15:07:00 Tiesha [facility] MAGNESIUM 2020-07-19 15:07:00 Tiesha [facility] PHOSPHORUS 2020-07-19 15:07:00 Tiesha [facility] PROTHROMBIN TIME/INR 2020-07-19 [facility]:07[facility] 2020-07-19 15:07:00 Tiesha [facility] TSH/FREE T4 IF INDICATED 2020-07-19 15:07:00 Tiesha [facility] LACTIC ACID, ARTERIAL 2020-07-19 15:07:00 Tiesha [facility] CORTISOL 2020-07-19 15:07:00 Tiesha [facility] XR CHEST 1 VIEW PORTABLE / 2020-07-19 14:38:00 Meggan Musa [facility] BLOOD GAS, ARTERIAL 2020-07-19 14:30:00 [facility] SODIUM NA-STAT LAB 2020-07-19 14:30:00 [facility] POTASSIUM-STAT LAB 2020-07-19 14:30:00 [facility] CALCIUM, IONIZED 2020-07-19 14:30:00 [facility] GLUCOSE-STAT LAB 2020-07-19 14:30:00 [facility] HGB/HCT (H&H) - STAT LAB 2020-07-19 14:30:00 [facility] PLATELET COUNT 2020-07-19 14:30:00 [facility] COLOR-FLOW MAPPING 2020-07-19 13:17:38 [facility] CONT WAVE PULSED DOPPLER 2020-07-19 13:17:38 [facility] TRANSESOPHAGEAL ECHO 2020-07-19 13:00:53 [facility] ABORH, MANUAL 2020-07-19 08:49:00 Beckie Motley [facility] CARDIAC CATH REPORT - SCAN 2020-07-19 00:00:00 Provider [facility] VASCULAR DIAGRAM -SCAN 2020-07-19 00:00:00 Provider, [facility] TYPE AND SCREEN, AUTOMATED 2020-07-16 09:12:00 Vincent Ferrer [facility] ECG 12-LEAD 2020-07-16 08:47:40 Vincent Ferrer [facility] SARS-COV2/RT-PCR ([facility] & 2020-07-16 08:39:00 Vincent Ferrer [facility] - REF LABS) [facility] Plan of Care Planned Activity Planned Date Details Comments Source Future Scheduled 2021-03-[address] [facility] - Test 00:00:00 (Season Ended) [code = Medic al Center INFLUENZA VACCINE (Season Ended)] Future Scheduled 2020-07-09 Medicare IPPE (WELCOME [facility] - Test 00:00:00 TO MEDICARE) [code = Medical Center Medicare IPPE (WELCOME TO MEDICARE)] Future Scheduled 2014 PNEUMOCOCCAL 65+ Y[facility] - Test 00:00:00 (1 of 1 - Medical Center [id number]) [code = PNEUMOCOCCAL 65+ YRS (1 of 1 - [id number] PCV13)] Future Scheduled 1999 SHINGLES VACCINES (1 [...] es - Test 00:00:00 [facility] breast (procedure) [code = 310766882] Future Scheduled [address] [facility] Cordelia es - Test 00:00:00 [facility] colon (procedure) [code = 504779777] Future Scheduled 65+ [facility]OCOCCAL [facility] Test VACCINE (1 of 2 - PPSV23) [code = 65+ PNEUMOCOCCAL VACCINE (1 of 2 - PPSV23)] Future Scheduled COVID-19 [facility]ACCINE (1) [facility] Test [code = COVID-19 VACCINE (1)] Future Scheduled [facility] Test (procedure) [code = 022565575] Future Scheduled BREAST CANC[facility] Test SCREENING [code = BREAST CANCER SCREENING] Future Scheduled COLONOSCOPY [facility]CREENING [facility] [code = COLONOSCOPY SCREENING] Future Scheduled SHINGLES VACCINES (#1) [facility] Test [code = SHINGLES VACCINES (#1)] Future Scheduled INFLUENZA VACCINE [facility] Test [code = INFLUENZA VACCINE] Encounters Start End Encounter Admission Attending Care Care Encounter Source Date/Time Date/Time Type Type Clinicians Facility Department ID 2021-03-11 2021-03-11 Nurse Therapy, Adc Covid Infusion [facility] [id number] 09:26:25 10:26:25 Visit Felipe Smith [id number] [facility] [id number] [facility] s Surgical [id number] [facility] 0[address] Branch 2020-08-05 2020-08-05 [facility] [id number] 12:24:29 12:39:[address] [facility] 2020-07-19 2020-07-23 [facility] [id number] 08:02:00 18:04:[address] [facility] 2020-07-22 2020-07-[address] [facility] [id number] [facility] 07:22:00 10:54:00 Event Noel Novak [facility] 2020-07-22 2020-07-22 Surgery Carissa, [facility] [id number] 07:30:00 10:45:00 [facility] 2020-07-21 2020-07-21 Surgery She, [facility] [id number] 09:50:00 11:55:00 Mita Winter [facility] 2020-07-21 2020-07-21 Travel [facility] [id number] [facility] 00:[facility]00 00:00:00 [facility] 2020-07-19 2020-07-19 Surgery Carissa, [facility] [id number] 10:30:00 13:45:00 [facility] 2020-07-19 2020-07-[address] [facility] [id number] 09:37:00 09:37:00 Event Selene Arellano [facility] 2020-07-16 2020-07-[address] [facility] [id number] 08:21:42 08:36:42 Visit Jared Ibrahim [facility] 2020-07-16 2020-07-[address] [facility] [id number] 00:00:00 00:00:00 Only [facility] 2020-07-16 2020-07-16 Travel [facility] [id number] [facility] 00:[facility]00 00:00:00 [facility] 2020-07-14 2020-07-14 [facility] [id number] 10:12:39 23:59:00 Encounter [facility] 2020-07-13 2020-07-[address] [facility] [id number] 14:28:40 14:58:40 Visit Vincent [facility] 2020-07-13 2020-07-13 Travel [facility] [id number] [facility] 00:[facility]00 00:00:00 [facility] 2018-04-01 2018-04-01 [facility] [id number] 14:00:00 14:00:00 [facility] 2018-03-04 2018-03-04 [facility] [id number] 11:00:00 11:00:00 [facility] Results Test Description Test Time Test Comments Results Result Sourc e Comments VASCULAR DIAGRAM 2020-08-03 [facility] -[facility]AN 10:50:52 unspecified - Medical provider. Center CARDIAC CATH 2020-08-03 Ordered [facility] an [facility] REPORT - SCAN 10:50:51 unspecified - Medical provider. [place] Tissue Exam 2020-07-30 18:09:00 Test Item Value Reference Range Interpretation Comme nts Case Report (test code = 104) Surgical Pathology Report Case: [id number] Authorizing Provider: Vincent Ferrer MD Collected: 07/22/2020 09:13 AM Ordering Location: [facility] Received: 07/22/2020 10:56 AM PERIOPERATIVE SERVICES Pathologist: Timur Ray MD Specimen: Plaque, left carotid plaque DIAGNOSIS (test code = 3220) [id number] [id number]pXHNwbHRw [id number] a3shs387mETos5yrJDDKutfhaPr9oEyiZ43qp5F5 EkcxL04vgIFvIFujcFUieknrssYmOCBFXKZKWNfy NXADVKKXUTTWLQdTLTYUAvVCRzQQGzLHJG2BISwx gXYfMXWMTEWOTsqERKXMZVRRJ7WNAKVZE0EHCgVR AQSNCEIjBGTbal45LUR1LnWzk0F4EHV5PBHbONLy o6qzDCHdtQPiHoQhTvKqZwAeFotvaJGoXMZyOyKk b8hqa970fHCjt1crCIRbFlF8pLEyTLLmyADpS390 GGSlPHigw7fiu9ScNXEroSOwp4F4QEARfkfniPy8 bYyjL86aa8X8OitwS3urEIDkGDHzL6BsXM3dIFLu Oeh5PRF1HDN1WMOuZKHuX0PrXR2sXTMuqCXpKNl5 u7rzkTkgMEQoNIH3x9bcWEjiqlPyZJ6sxr1amRp6 l9apveQjQBTiJKEuyTBXHDEbP4PckVbpCh9zqJh7 hFzwRaevGGF6Cfq7VJ1pof18yqj1dFbzBAGncjqd KxZ1HGqbUVUqbyqsLDi8KIxfERWafIZ3PMLijVKh F0BzUUIoPG2rryz3VZI0OKabETHdIeC9YBOnyPUg FTTclFidNVovc310ARY9HvDyIY6gN6Ttp1C8nQ7e jZQpYCJcgLWyVzBtUYIvqa2urUGwGEwdl5XoVGD3 tlB5uVJugRYvQEPcXpY8IZgcNN4ode18RSDwTQC5 pe8trXHwwRfvplNrtWAnRCdlA9BdGVEow422RBEi C3LpQTKty7E6ziUrIrYiSGLtlHZ1vtQ8TYVsFM7m eoqqc6hwJRgyBInhMECnpzQ7qnX4TLCsxNKyS8Xf xU6fDDLbEA2mydcsx4hwMKJ9BUlwJSMiNZZ5YoNj JWZjo6Lxrpn7NdKlt9LkwFMiJSikD12uz975HXTi hfXxP8hgyNKybzwscFRoleedTAouxgQ3SDPcVJdx kkgkOOGyTLckV8gmYePvFEHdqKozCDtmd9WsFCMn JTKbChBavABzQJKsOqo8MNOjgEYzMMLgRuUtM9fq zawkGfQTKNXnf4xtC0mfoGBPvDGsR6WvNYhwafKa MIteRUsoWDZiDAL8RY22WwzhQOYhxz17 CPT Code(s) (test code = 3357) s7ootNDvNJIkmLD2ItEsXTZoc9dph9JilRCn cGFy DDrsnUWqcdHvfj94fOK3wF03QT5yOOPqOvN9RWQf exH0Wmq7OTLqNSYxtGUwV313h8ymi4khqbIdlIV1 zZkdCWMrSYMzMRslSKQsJjZfYVdfRRO5XLq2CoVh XHBhcn0= CLINICAL HISTORY (test code = 3356) t8zufTHdVFUmuIP5HdZxHCBvj7sbb4W sdHBncGFy ZUqebKFsvhPqyy71yMK9iF67UM4xYDAqJeL8JDYc nzO8Ocr4BKIqDLHazJPmQ289x6fmp9zmuqXzlND3 fVxwYXJkXHBsYWluXGZzMjAgTGVmdCBjYXJvdGlk YQA5IT6jl6goVLNsqp4= SPECIMEN SOURCE (test code = 3377) r1zhjXLwZNUlxCZ3AfTpEUTpi6tzv4Zl dHBncGFy HOpjcLRwxxUrvv56zVF7sF10MC4bMKMtTmY2YTUk exO7Dja0BIEaMODnyCBmH818a0gnm0jixuIhlOZ1 fVxwYXJkXHBsYWluXGZzMjAgUGxhcXVlXHBhcn0= GROSS DESCRIPTION (test code = 3366) v1cxyMZmAZWvzURtWkAqBXCwHOKzs0 lcZGVmbGFu [file] cvziSVPdQUzFLQpXU0ZNCMqcHRT3 MICROSCOPIC DESCRIPTION (test code = w1uuvQYcFZMpbTK8EbYqCYSyr1duo7 BsdHBncGFy 3371) LVuaoJQmwxPwyp44aSE9zG82HM3tANQkNkD4UMDj orF9Usj8PROtKMXiuXMvA172i3ytg4hbngVbtRJ6 xZnzZXMoDZXfXXbrGNEgFnOfDADvDd4naXJbEDQb cn0= [facility] CenterTISSUE [id number] 18:09:00Surgical Pathology Report Case: [id number] Authorizing Provider: Vincent Ferrer MD Collected: 07/22/2020 09:13 AM Ordering Location: [facility] Received: 07/22/2020 10:56 AM PERIOPERATIVE SERVICES Pathologist: Timur Ray MD Specimen: Plaque, left carotid plaque ARTERY, LEFT CAROTID, ENDARTERECTOMY:CALCIFIC ATHEROSCLEROTIC PLAQUE Signing Pathologist Direct Phone Line: [phone] signed by Timur Ray MD on 07/30/2020 at 6:09 [id number]; [id number] carotid stenosisPlaqueReceived in formalin labeled the patient's name, accession number and "left carotid plaque" is a 3.5 cm in length by 0.5 cm in diameter dillon-yellow tubular piece of focally calcified plaque. College Dean sections are submitted in A1 following decalcification.ISABELLA Holguin, HT (ASC P)PerformedPrepare Leuko-Red [id number] 23:54:00 Test Item Value Reference Range Interpretation Comments CROSSMATCH (test code = 2264) COMPATIBLE Unit ABO (test code = O Pos 1374757) UNIT NUMBER (test code = [id number] 934-0) Status (test code = 1196281) TX_TIMEINCHART Blood Bank Product (test code RED BLOOD CELLS = 2263) PRODUCT CODE (test code = H2045A32 933-2) [facility] CenterECG 12 [id number] 17:54:17Interface, External Ris In - 07/23/2020 5:54 PM CSTVentricular Rate 107 BPMAtrial Rate 107 BPMP-R Interval 146 msQRS Duration 86 msQ-T Interval 328 msQTC Calculation(Bazett) 437 msP [place] 66 degreesR [place] 23 degreesT [place] 34 degreesSinus tachycardiaOtherwise normal ECGWhen compared with ECG of 21-JUL-2020 16:27,T wave amplitude has decreased in Lateral leadsQT has shortenedConfirmed by MD SHIVANI, MATTY ([id number]) on 07/23/2020 5:54:13 [facility]-Glucose meter 2020-07-23 14:42:00 Test Item Value Reference Range Interpretation Comments POC-Glucose Meter (test 131 mg/dL 70-110 H : TE STED AT [facility] code = 1538) [address] [facility], [address]: Rnfa/Techni tigre ID = [id number] for Qasim Marcell jacob Lab Interpretation (test Abnormal code = 89995-3) [facility]-GLUCOSE [id number] 14:42:00 Test Item Value Reference Range Interpretation Comments POC-GLUCOSE METER 131 mg/dL 70-110 H : TESTED A T [facility] 6720 (BEAKER) (test code = FLORIDALMA Schmitt [facility], 1538) [address]: Rnfa/Techni tigre ID = [id number] for Leslie Bowman Basic Metabolic [id number] 07:11:00 Test Item Value Reference Range Interpretation Comments Sodium (test code = 142 meq/L 854-916 6392-2) Potassium (test code = 3.7 meq/L 3.5-5.1 2823-3) Chloride (test code = 104 meq/L 98-107 5-0) CO2 (test code = 31 meq/L 22-29 H 2028-03) BUN (test code = 18 mg/dL 7-21 3094-0) Creatinine (test code 0.74 mg/dL 0.57-1.25 = 2160-0) Glucose (test code = 116 mg/dL 70-105 H 2345-7) Calcium (test code = 8.2 mg/dL 8.4-10.2 L 30435-3) EGFR (test code = 77 mL/min/1.73 [place] [address]-4) NOT ACCURATE CREATININE CLEARANCE IN PREDICTING GLOMERULAR FILTRATION RATE . ESTIMATED GFR I S NOT APPLICABLE FOR DIALYSIS PATIENTS. STAR (test code = STAR) Rnfa ID - EDASI Lab Interpretation Abnormal (test code = 68848-4) [facility] CenterMagnesium2021-01-15 07:11:00 Test Item Value Reference Range Interpretation Comments Magnesium (test code = 1.9 mg/dL 1.6-2.6 71012-7) STAR (test code = STAR) Rnfa ID - EDASI Lab Interpretation (test Normal code = 09348-4) [facility] CenterPhosphorus2021-01-15 07:11:00 Test Item Value Reference Range Interpretation Comments Phosphorus (test code = 2.3 mg/dL 2.3-4.7 2777-1) STAR (test code = STAR) Rnfa ID - EDASI Lab Interpretation (test Normal code = 18586-5) [facility] CenterBASIC METABOLIC [id number] 07:11:00 Test Item Value Reference Range Interpretation [...] S NOT APPLICABLE FOR DIALYSIS PATIEN TS. Rnfa ID - [id number] 07:11:00 Test Item Value Reference Range Interpretation Comments MAGNESIUM (BEAKER) (test code = 1.9 mg/dL 1.6-2.6 627) Rnfa ID - [id number] 07:11:00 Test Item Value Reference Range Interpretation Comments PHOSPHORUS (BEAKER) (test code = 2.3 mg/dL 2.3-4.7 604) Rnfa ID - EDASICBC with platelet count + automated etkr1954-19-80 06:17:00 Test Item Value Reference Range Interpretation Comments WBC (test code = 6690-2) 10.6 See_Comment H [A utomated message] The system Aldis generated this result transmitted ref erence range: 3.5 - 10 .5 K/L. The refe rence range was not u sed to interpret this result as normal/abnor mal. RBC (test code = 789-8) 2.71 See_Comment L [Au tomated message] The system [employer] generated this result transmitted ref erence range: 3.93 - 5 .22 M/L. The refe rence range was not u sed to interpret this result as normal/abnor mal. MCHC (test code = 786-4) 31.7 See_Comment L [A utomated message] The system [employer] generated this result transmitted ref erence range: [...] code = 239 See_Comment [Aut omated message] 687-3) The system [employer] generated this result transmitted ref erence range: 150 - 45 0 K/CU MM. The referen ce range was not u sed to interpret this result as normal/abnor mal. MPV (test code = 10.1 fL 9.4-12.3 42333-0) nRBC (test code = 413) 0 See_Comment [Aut omated message] The system [employer] generated this result transmitted ref erence range: [...] H [Aut omated message] 670) The system [employer] generated this result transmitted ref erence range: 1.56 - 6 .13 K/L. The refe rence range was not u sed to interpret this result as normal/abnor mal. # Lymphs (test code = 1.56 See_Comment [Auto mated message] 414) The system [employer] generated this result transmitted ref erence range: 1.18 - 3 .74 K/L. The refe rence range was not u sed to interpret this result as normal/abnor mal. # Monos (test code = 0.96 See_Comment H [Autom ated message] 415) The system [employer] generated this result transmitted ref erence range: 0.24 - 0 .36 K/L. The refe rence range was not u sed to interpret this result as normal/abnor mal. # Eos (test code = 416) 0.02 See_Comment L [Au tomated message] The system [employer] generated this result transmitted ref erence range: 0.04 - 0 .36 K/L. The refe rence range was not u sed to interpret this result as normal/abnor mal. # Baso (test code = 417) 0.04 See_Comment [A utomated message] The system [employer] generated this result transmitted ref erence range: 0.01 - 0 .08 K/L. The refe rence range was not u sed to interpret this result as normal/abnor mal. Immature 1 % 0-1 Granulocytes-Relative (test code = 2801) Lab Interpretation (test Abnormal code = 47205-6) [facility] W/PLT COUNT & AUTO [id number] 06:17:00 Test Item Value Reference Range Interpretation [...] (test code = 416) BASOPHILS ABSOLUTE COUNT ([facility]) 0.04 K/ L 0.01-0.08 (test code = 417) IMMATURE GRANULOCYTES-RELATIVE 1 % 0-1 PERCENT ([facility]) (test code = 2801) POCT-GLUCOSE [id number] 05:16:00 Test Item Value Reference Range Interpretation Comments POC-GLUCOSE METER 122 mg/dL 70-110 H : TESTED A T [facility] 6720 ([facility]) (test code = FLORIDALMA Schmitt [facility], 1538) [address]: Rnfa/Techni tigre ID = [id number] for VIVIENNE LOPEZ SE OHTC-[id number] 00:56:00 Test Item Value Reference Range Interpretation Comments POC-Glucose (test code = 124 mg/dL 70-110 H : T ESTED AT [facility] 1855) 67[address] [facility], [address]: Rnfa/Techni tigre ID = [id number] for ZULLY BONNER ALD Lab Interpretation (test Abnormal code = 56852-1) [facility] CenterPOCT-RIVPTTP9187-70-31 00:56:00 Test Item Value Reference Range Interpretation Comments POC-GLUCOSE 124 mg/dL 70-110 H : TESTED AT [facility] 6720 ([facility]) (test code [facility] [employer] [facility], = 1855) [address]: Rnfa/Techni tigre ID = [id number] for LESA YBARRA POC-Blood gases, rmghsi6004-19-57 00:55:00 Test Item Value Reference Range Interpretation Comments Temp. Celsius-POC (test 97.4 code = 1834) FIO2-POC (test code = 44 1835) pH, Venous-POC (test 7.315 7.320-7.420 L : TESTE D AT [facility] code = 1842) [address] [facility], [address] PCO2, Venous-POC (test 55.6 See_Comment H If [...] mated message] code = 1844) The system Aldis generated this result transmit rory reference range : 25.0 - 40.0 mm Hg. The reference r zo was not used to interpret this result as normal/abnormal . SO2, Venous-POC (test 56.0 % 40-70 code = 1845) HCO3, Venous-POC (test 28.5 meq/L 21-29 code = 1846) BE, Venous-POC (test 2.0 meq/L -2-3 : code = 1847) Rnfa/Techni tigre ID = [id number] for BAYANG, FITZGER ALD Lab Interpretation Abnormal (test code = 53370-7) [facility]-Calcium hsdhzbe0976-60-14 00:55:00 Test Item Value Reference Range Interpretation Comments POC-Calcium Ionized 1.24 mmol/L 1.12-1.27 : TESTED AT [facility] (test code = 1536) [address] [place] [address], 770 30: Rnfa/Techni tigre ID = [id number] for BAYANG, FITZGER ALD Lab Interpretation Normal (test code = 31835-8) [facility]-Cyzdmnlpa9501-53-15 00:55:00 Test Item Value Reference Range Interpretation Comments POC-Potassium (test code 3.9 meq/L 3.6-5.5 : T ESTED AT [facility] = 1540) [address] [place] [address], [address]: Rnfa/Techni tigre ID = [id number] for BAYANG, FITZGER ALD Lab Interpretation (test Normal code = 74769-6) [facility]-Zdxxxa2324-32-68 00:55:00 Test Item Value Reference Range Interpretation Comments POC-Sodium (test code = 141 meq/L 135-148 : TE STED AT [facility] 1542) [address] [place] [address], [address]: Rnfa/Techni tigre ID = [id number] for BAYANG, FITZGER ALD Lab Interpretation (test Normal code = 89057-5) [facility]-[id number] 00:55:00 Test Item Value Reference Range Interpretation Comments POC-Hemoglobin (test code 8.8 g/dL 12-15 L : TESTED AT [facility] = 1856) [address] [place] [address], [address]: Rnfa/Techni tigre ID = [id number] for ZULLY BONNER Lab Interpretation (test Abnormal code = 20030-9) [facility] CenterPOCT-[id number] 00:55:00 Test Item Value Reference Range Interpretation Comments POC-Hematocrit (test code 26 % 36-45 L : = 1857) Rnfa/Techni tigre ID = [id number] for ZULLY BONNER Lab Interpretation (test Abnormal code = 89876-3) [facility] CenterPOCT-[id number] 00:55:00 Test Item Value Reference Range Interpretation Comments POC-HEMATOCRIT 26 % 36-45 L : Rnfa/Te chnician ID = ([facility]) (test code = 314393 for HA, 1856) LESA POCT-CALCIUM [id number] 00:55:00 Test Item Value Reference Range Interpretation Comments POC-CALCIUM IONIZED 1.24 mmol/L 1.12-1.27 : TESTED AT [facility] 67 ([facility]) (test code [facility], = 1536) [address]: Rnfa/Techni tigre ID = [id number] for LESA ARIZMENDI POCT-BLOOD GASES, [id number] 00:55:00 Test Item Value Reference Range Interpretation Comments TEMP, CELSIUS-POC 97.4 ([facility]) (test code = 1834) FIO2-POC (BEAKER) 44 (test code = 1835) PH, VENOUS-POC 7.315 7.320-7.420 L : TESTED AT [facility] 67 ([facility]) (test code [facility], = 1842) [address] PCO2, VENOUS-POC 55.6 mm Hg 41.0-51.0 H If pO2 is > 180, pCO2 may (AKER) (test code be posit ively biased = 1843) PO2, VENOUS-POC 31.0 mm Hg 25.0-40.0 (BEAKER) (test code = 1844) SO2, VENOUS-POC 56.0 % 40.0-70.0 (BEAKER) (test code = 1845) HCO3, VENOUS-POC 28.5 meq/L 21.0-29.0 (BEAKER) (test code = 1846) BASE EXCESS, 2.0 meq/L -2.0-3.0 : Rnfa/Tech nician ID VENOUS-POC ([facility]) = [id number] for HA, (test code = 1847) DANO Watson EPAP-[id number] 00:55:00 Test Item Value Reference Range Interpretation Comments POC-SODIUM (BEAKER) 141 meq/L 135-148 : TESTED AT [place] [address] (test code = 1542) IN[facility], [address]: Rnfa/Techni tigre ID = [id number] for LESA YBARRA [id number]-[id number] 00:55:00 Test Item Value Reference Range Interpretation Comments POC-POTASSIUM 3.9 meq/L 3.6-5.5 : TESTED AT [place] [address] ([facility]) (test code [facility], = 1540) [address]: Rnfa/Techni tigre ID = [id number] for LESA YBARRA GEWC-[id number] 00:55:00 Test Item Value Reference Range Interpretation Comments POC-HEMOGLOBIN 8.8 g/dL 12.0-15.0 L : TESTED AT [place] [address] (BEAKER) (test code [facility], = 1856) [address]: Rnfa/Techni tigre ID = [id number] for LESA YBARRA RAD, CHEST, 1 VIEW, NON [id number] 00:55:00Reason for exam:- >desaturationShould this be performed at the bedside?->Yes [facility] : 1950 Sex: FFINAL REPORT [...] 12:55 AMXR chest 1 view portable / [id number] 00:55:00Interface, External Ris In - 07/23/2020 12:57 [...] Signed: José Dickens Verified Date/Time: 07/23/2020 00:55:19 [facility] [id number] 00:51:00 Test Item Value Reference Range Interpretation Comments POC-GLUCOSE METER 127 mg/dL 70-110 H : TESTED A T [facility] 6720 (BEAKER) (test code = FLORIDALMA SOFIA [place], 1538) [address]: Rnfa/Techni tigre ID = [id number] for VIVIENNE LOPEZ SE BASIC METABOLIC [id number] 15:53:00 Test Item Value Reference Range Interpretation [...] S NOT APPLICABLE FOR DIALYSIS PATIEN TS. Rnfa ID - [id number]3 15:44:00 Test Item Value Reference Range Interpretation Comments MAGNESIUM (BEAKER) (test code = 2.0 mg/dL 1.6-2.6 627) Rnfa ID - TXORLPKVKIVSQTUCH4174-38-66 15:44:00 Test Item Value Reference Range Interpretation Comments PHOSPHORUS (BEAKER) (test code = 2.4 mg/dL 2.3-4.7 604) Rnfa ID - AASHAILAIDLactic Acid, Lfwvxhcs5107-93-24 15:34:00 Test Item Value Reference Range Interpretation Comments Lactate, Art (test 0.8 mmol/L 0.5-2.2 Specimen code = 2874) moderately hemolyzed STAR (test code = STAR) Rnfa ID - AASHAILAID Lab Interpretation Normal (test code = 28945-5) [facility], [id number] 15:34:00 Test Item Value Reference Range Interpretation Comments LACTATE BLOOD 0.8 mmol/L 0.5-2.2 Specimen moder ately ARTERIAL (2) (BEAKER) hemoly zed (test code = 2874) Rnfa ID - AAHAMIDCBC W/PLT COUNT & AUTO [id number] 15:11:00 Test Item Value Reference Range Interpretation [...] (BEAKER) (test code = 2801) Blood gas, qdqapqyd4989-65-47 15:07:00 Test Item Value Reference Range Interpretation Comments pH, Arterial (test code 7.35 7.35-7.45 = 2744-1) pCO2, Arterial (test 51 See_Comment H [Autom ated message] code = 2019-8) The system [facility] generated this result transmit rory reference range : 35 - 45 mm Hg. The reference range was not used to interpret this result as normal/abnormal . pO2, Arterial (test 112 See_Comment H [Automa rory message] code = 2703-7) The system [facility] generated this result transmit rory reference range [...] 36 Lab Interpretation Abnormal (test code = 25608-8) [facility] CenterBLOOD GAS, [id number] 15:07:00 Test Item Value Reference Range Interpretation [...] 1819) 36.0 RAD, CHEST, 1 VIEW, NON [id number] 13:46:00Reason for exam:->s/p carotidShould this be performed at the bedside?->Yes [facility] 1950 Sex: FFINAL [...] is magnified by technique. Signed: Juan Parekh MDRepsullivan county memorial hospital Verified Date/Time: 07/22/2020 13:46:15 Reading Location: [facility] Radiology Reading Room Calcium, [id number] 11:34:00 Test Item Value Reference Range Interpretation Comments Calcium, Ion (test code = 1994-) 1.09 mmol/L 1.12-1.27 L pH, Blood (test code = 02974-3) 7.33 Lab Interpretation (test code = Abnormal 59976-1) [facility] CenterHGB/HCT (H&H)-Stat [id number] 11:34:00 Test Item Value Reference Range Interpretation Comments Hemoglobin (test code = 8.4 See_Comment L [Au tomated message] 786-4) The system [employer] generated this result transmitted ref erence range: 12.0 - 1 5.0 GM/DL. The refe rence range was not u sed to interpret this result as normal/abnor mal. Hematocrit (test code = 25.0 % 36-45 L 4544-3) Lab Interpretation (test Abnormal code = 25477-0) [facility] CenterGlucose-Stat [id number] 11:34:00 Test Item Value Reference Range Interpretation Comments Glucose (test code = 2345-7) 122 mg/dL 70-110 H Lab Interpretation (test code = Abnormal 90099-7) [facility] CenterPotassium-Stat [id number] 11:34:00 Test Item Value Reference Range Interpretation Comments Potassium (test code = 2823-3) 3.3 meq/L 3.6-5.5 L Lab Interpretation (test code = Abnormal 95952-7) [facility] CenterCALCIUM, [id number] 11:34:00 Test Item Value Reference Range Interpretation Comments CALCIUM IONIZED (BEAKER) (test 1.09 mmol/L 1.12-1.27 L code = 698) PH, BLOOD (BEAKER) (test code = 7.33 1810) POTASSIUM-STAT [id number] 11:34:00 Test Item Value Reference Range Interpretation Comments POTASSIUM (BEAKER) (test code = 3.3 meq/L 3.6-5.5 L 379) GLUCOSE-STAT [id number] 11:34:00 Test Item Value Reference Range Interpretation Comments GLUCOSE RANDOM (BEAKER) (test code 122 mg/dL 70-110 H = 652) HGB/HCT (H&H) - STAT [id number] 11:34:00 Test Item Value Reference Range Interpretation Comments HEMOGLOBIN (BEAKER) (test code = 8.4 GM/DL 12.0-15.0 L 410) HEMATOCRIT (BEAKER) (test code = 25.0 % 36.0-45.0 L 411) Transesophageal [id number] 10:59:28Ejection FractionSLEH ECHO HEARTLAB MKCKESSON CPACSInterface, External Ris In - 07/22/2020 10:59 AM C STTransesophageal Echocardiography Report (FRANCY) Demographics Patient Name ERICA JASON Date of Study 07/19/2020 MAIRA Gender Female Visit Number [id number] Race Unknown Room Number SCPR Number Date of 1950 Referring Physician Vincent Ferrer MD Age 70 year(s) 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 Interpreting Physician TYLOR Blankenship Procedure Type of [...] LVOT CO: 5.89 l/min LVOT CI: 2.89 l/min/m^[facility]CKindred [facility] SARS-CoV2/RT-PCR (Asymptomatic ONLY)2020-07-22 07:09:00 Test Item Value Reference Range Interpretation Comments SARS-COV2/RT-PCR Negative Not Detected, (test code = Negative, See 07552-5) external report for linked test SARS-COV-2 [facility] PATRICIO PERFORMING LAB (test code = 62665-0) STAR (test code = Negative result for [...] the Act. Testing was performed using the Mobiveil SARS-CoV-2 assay. Fact Sheet for Healthcare Providers:https://www.Almondy/elder/RT_SA BC-RsI-9_IVK_Karu_Zfuyb_ 51-012206.pdf Fact Sheet for Healthcare Patients:https://www.CancerIQ/elder/RT_SAR U-EqR-7_Wqrxiao_Blrd_Nfa et_EN_51-919388B8.pdf Performing Laboratory:[place] [address] [address]ARS-[address]OV2/RT-PCR ([facility])2020-07-22 07:09:00 Test Item Value Reference Range Interpretation Comments SARS-COV2/RT-PCR (test Negative Not Detected, Negative, code = 4421948) See external report for linked test SARS-COV-2 PERFORMING LAB [facility] PATRICIO (test code = 4200275) Negative result for this test determines that [...] the Marie SARS-CoV-2 assay.Fact Sheet for Healthcare Providers:https://www.Weibu.marie/elder/ TM_CBUD-XwT-9_OCA_Txxn_Wgvan_09-726605.pdfFact Sheet for Healthcare Patients:https://www.[employer].GTX Messaging tere/elder/FN_BJXQ-MzV-0_Wbtspsa_Jmoi_Dvjlk_YX_32-917259G7.pdfPerforming Laboratory:[address] [address]MSH W/PLT COUNT & AUTO [id number] 05:42:00 Test Item Value Reference Range Interpretation [...] (BEAKER) (test code = 2801) BASIC METABOLIC [id number] 05:35:00 Test Item Value Reference Range Interpretation [...] S NOT APPLICABLE FOR DIALYSIS PATIEN TS. Rnfa ID - JOSE [id number] 05:35:00 Test Item Value Reference Range Interpretation Comments MAGNESIUM (BEAKER) (test code = 2.2 mg/dL 1.6-2.6 627) Rnfa ID - JOSE [id number] 05:35:00 Test Item Value Reference Range Interpretation Comments PHOSPHORUS (BEAKER) (test code = 2.5 mg/dL 2.3-4.7 604) Rnfa ID - JOSE RITCHIEOCT-GLUCOSE [id number] 05:20:00 Test Item Value Reference Range Interpretation Comments POC-GLUCOSE METER 122 mg/dL 70-110 H : TESTED A T [facility] 6720 (BEAKER) (test code = [facility], 1538) 25563: Rnfa/Techni tigre ID = [id number] for CHEVY POLANCOO (V), BRIDGER POCT-GLUCOSE [id number] 21:05:00 Test Item Value Reference Range Interpretation Comments POC-GLUCOSE METER 150 mg/dL 70-110 H : TESTED A T [facility] (BEAKER) (test code = [facility], 1538) 24385: Rnfa/Techni tigre ID = [id number] for YONI BENNETT POCT-GLUCOSE [id number] 16:43:00 Test Item Value Reference Range Interpretation Comments POC-GLUCOSE METER 156 mg/dL 70-110 H : TESTED A T [facility] (BEAKER) (test code = [facility], 1538) 71390: Rnfa/Techni tigre ID = [id number] for CANDICE MARINO ILYA [id number] 16:06:00 Test Item Value Reference Range Interpretation Comments PTT (test code = 01215-2) 30.3 See_Comment [ Automated message] The system [employer] generated this result transmitted ref erence range: 22.5 - 3 6.0 seconds. The re ference range was not u sed to interpret this result as normal/abnor mal. Lab Interpretation (test Normal code = 66177-4) [facility] Test Item Value Reference Range Interpretation Comments PARTIAL THROMBOPLASTIN TIME 30.3 seconds 22.5-36.0 (BEAKER) (test code = 760) Prothrombin time/[id number] 16:05:00 Test Item Value Reference Interpretation Comments Range Protime (test code = 14.1 See_Comment [Autom ated 5902-2) message] The system which generated this result transmitted reference range : 11.9 - 14.2 seconds. The reference range was not used to interpret this result as normal/abnormal . INR (test code = 1.12 See_Comment [Automated 6301-6) message] The system which generated this result [...] valves. Lab Interpretation Normal (test code = 73166-7) [facility] TIME/[id number] 16:05:00 Test Item Value Reference Range Interpretation [...] for patients wiht mechanical heart valves.BASIC METABOLIC [id number] 04:00:00 Test Item Value Reference Range Interpretation [...] S NOT APPLICABLE FOR DIALYSIS PATIEN TS. Rnfa ID Pearl REZA [id number] 04:00:00 Test Item Value Reference Range Interpretation Comments MAGNESIUM (BEAKER) (test code = 1.9 mg/dL 1.6-2.6 627) Rnfa ID Pearl REZA [id number] 04:00:00 Test Item Value Reference Range Interpretation Comments PHOSPHORUS (BEAKER) (test code = 2.4 mg/dL 2.3-4.7 604) Rnfa ID Pearl REZA WCBC W/PLT COUNT & AUTO [id number] 03:54:00 Test Item Value Reference Range Interpretation [...] PERCENT (BEAKER) (test code = 2801) POCT-GLUCOSE [id number] 18:33:00 Test Item Value Reference Range Interpretation Comments POC-GLUCOSE METER 124 mg/dL 70-110 H : TESTED A T [facility] 6720 (BEAKER) (test code = FLORIDALMA SOFIA [place], 1538) 269[address]: Rnfa/Techni tigre ID = [id number] for LAURIE VILLASENOR POCT-GLUCOSE [id number] 11:58:00 Test Item Value Reference Range Interpretation Comments POC-GLUCOSE METER 92 mg/dL 70-110 : TESTED A T [facility] 6720 (JOHNY) (test code = FLORIDALMA Schmitt [facility], 1538) [address]: Rnfa/Techni tigre ID = [id number] for LAUIRE VILLASENOR 2D Echo W/Doppler(CW/PW/Color)2020-07-20 09:54:32Ejection FractionSLEH ECHO HEARTLAB MKCKESSON CPACSInterface, External Ris In - 07/20/2020 9:54 AM C STTransthoracic Echocardiography Report (TTE) Demographics Patient Name ERICA JASON Date of Study 07/19/2020 MAIRA Gender Female Visit Number [id number] Race Unknown Room Number 2C25 Number Date of 1950 Referring Physician Hayden Lewis Age 70 year(s) 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 Interpreting Sheila Evans MD PhysicianFelldominic Pascual MD [...] 22.73 mmHg Pulmonic Valve Estimated PASP: 32.73 mmHgLos Alamitos Medical CenterPOCT- GLUCOSE [id number] 07:06:00 Test Item Value Reference Range Interpretation Comments POC-GLUCOSE METER 87 mg/dL 70-110 : TESTED A T [facility] 6720 (BEAKER) (test code = FLORIDALMA Schmitt [facility], 1538) 63381: Rnfa/Techni tigre ID = [id number] for HEBERT QUINONEZ (V) JANELL BASIC METABOLIC [id number] 04:37:00 Test Item Value Reference Range Interpretation [...] S NOT APPLICABLE FOR DIALYSIS PATIEN TS. Rnfa ID - ALEKSEY [id number] 04:37:00 Test Item Value Reference Range Interpretation Comments MAGNESIUM (BEAKER) (test code = 1.6 mg/dL 1.6-2.6 627) Rnfa ID - ALEKSEY [id number] 04:37:00 Test Item Value Reference Range Interpretation Comments PHOSPHORUS (BEAKER) (test code = 4.0 mg/dL 2.3-4.7 604) Rnfa ID - ALEKSEY MCBC W/PLT COUNT & AUTO [id number] 03:55:00 Test Item Value Reference Range Interpretation [...] PERCENT (BEAKER) (test code = 2801) POCT-GLUCOSE [id number] 23:44:00 Test Item Value Reference Range Interpretation Comments POC-GLUCOSE METER 129 mg/dL 70-110 H : TESTED A T [facility] 6720 (BEAKER) (test code = FLORIDALMA Schmitt [facility], 1538) 36460: Rnfa/Techni tigre ID = [id number] for BRIDGER SURESH LACTIC ACID, [id number] 17:57:00 Test Item Value Reference Range Interpretation Comments LACTATE BLOOD 0.8 mmol/L 0.5-2.2 Specimen moder ately ARTERIAL (2) (BEAKER) hemoly zed (test code = 2874) Rnfa ID - DBBLOOD GAS, [id number] 17:43:00 Test Item Value Reference Range Interpretation [...] 1819) 36.0 Urinalysis w/Microscopic + Reflex to [id number] 16:52:00 Test Item Value Reference Range Interpretation Comments Color, UA (test code Yellow = 5778-6) Clarity, UA (test Clear code = 5767-9) Specific [place], UA 1.027 1.001-1.035 (test code = 5811-5) pH, UA (test code = 5.5 5.0-8.0 5803-2) Protein, UA (test 10 mg/dL Negative A code = 48401-4) Glucose, UA (test Negative Negative code = 365) Ketones, UA (test Trace Negative A code = 2514-8) Bilirubin, UA (test Negative Negative code = 31638-1) Blood, UA (test code Negative Negative = 61920-1) Nitrite, UA (test Negative Negative code = 5802-4) Leukocytes, UA (test Negative Negative code = 5799-2) Urobilinogen, UA 0.2 mg/dL 0.2-1 (test code = 88921-3) RBC, UA (test code = 2 See_Comment [Autom ated 62095-6) message] The system which generated this result [...] . Bacteria, UA (test Rare code = 59991-5) Mucus (test code = Rare 8247-9) Squam Epithel, UA 1 See_Comment [Automate d (test code = 38132-9) messag e] The system which generated this result transmit rory reference range : /HPF. The reference range was not used to interpret this result as normal/abnormal . Hyaline Casts, UA 12 See_Comment [Automate d (test code = 90793-0) messag e] The system which generated this result transmit rory reference range : /LPF. The reference range was not used to interpret this result as normal/abnormal . Crystals, Urine (test Rare code = 56470-0) Specimen Source (test code = 2795) STAR (test code = STAR) Rnfa ID - [auto]Rnfa ID - tech Lab Interpretation Abnormal (test code = 71936-4) [facility] CenterURINALYSIS W/ REFLEX URINE [id number] 16:52:00 Test Item Value Reference Range Interpretation [...] = 1521) SOURCE(BEAKER) (test code = 2795) Rnfa ID - [auto]Rnfa ID - [id number] 16:39:00 Test Item Value Reference Range Interpretation Comments Cortisol, Total (test 85.0 ug/dL 3.7-19.4 H code = 4685) STAR (test code = STAR) Rnfa ID - DBOperator ID - DB Lab Interpretation (test Abnormal code = 96942-2) [facility] CenterCORTISOL2021-01-11 16:39:00 Test Item Value Reference Range Interpretation Comments CORTISOL, TOTAL (BEAKER) (test 85.0 ug/dL 3.7-19.4 H code = 2755) Rnfa ID - DBOperator ID - DBTSH/Free T4 If [id number] 16:06:00 Test Item Value Reference Range Interpretation Comments TSH (test code = 0.749 See_Comment [Automated 05128-1) message] The system which generated this result transmit rory reference range : 0.350 - 4.940 uIU/mL. The reference range was not used to interpret this result as normal/abnormal . STAR (test code = STAR) Rnfa ID - DB Lab Interpretation Normal (test code = 64595-1) [facility] CenterTS/FREE T4 IF [id number] 16:06:00 Test Item Value Reference Range Interpretation Comments THYROID STIMULATING HORMONE 0.749 uIU/mL 0.350-4.940 (BEAKER) (test code = 772) Rnfa ID - DBComprehensive metabolic [id number] 15:34:00 Test Item Value Reference Range Interpretation [...] 3.2 g/dL 3.5-5 L Specime n slightly 73652-2) hemolyzed Alkaline Phosphatase 43 U/L 40-150 (test code = 6768-6) Total Bilirubin (test 0.5 mg/dL 0.2-1.2 Specim en slightly code = 1974-2) hemolyzed Sodium (test code = 141 meq/L 000-555 7288-2) Potassium (test code 4.0 meq/L 3.5-5.1 Specime n slightly = 0723-3) hemolyzed Chloride (test code = 108 meq/L 98-107 H ) CO2 (test code = 26 meq/L -29 2028-03) BUN (test code = 13 mg/dL 7-4-0) Creatinine (test code 0.92 mg/dL 0.57-1.25 Specim en slightly = 2160-0) hemolyzed Glucose (test code = 152 mg/dL 70-105 H 2345-7) Calcium (test code = 9.3 mg/dL 8.4-10.2 32860-9) AST (test code = 22 U/L 5-34 Specimen sl ightly 1920-8) hemolyzed ALT (test code = 8 U/L 6-55 Specimen sl ightly 1742-6) hemolyzed EGFR (test code = 60 mL/min/1.73 [place] [address]-9) NOT ACCURATE CREATININE CLEARANCE IN PREDICTING GLOMERULAR FILTRATION RATE . ESTIMATED GFR I S NOT APPLICABLE FOR DIALYSIS PATIEN TS. STAR (test code = STAR) Rnfa ID - DB Lab Interpretation Abnormal (test code = 80068-9) [facility]:34[facility]00 Test Item Value Reference Range Interpretation Comments MAGNESIUM (BEAKER) 1.7 mg/dL 1.6-2.6 Specimen slightly (test code = 627) hemolyzed Rnfa ID - [id number] 15:34:00 Test Item Value Reference Range Interpretation Comments PHOSPHORUS (BEAKER) 3.9 mg/dL 2.3-4.7 Specimen slightly (test code = 604) hemolyzed Rnfa ID - DBCOMPREHENSIVE METABOLIC [id number] 15:34:00 Test Item Value Reference Range Interpretation [...] GFR I S NOT APPLICABLE FOR DIALYSIS PATISAAD TS. Rnfa ID - DBPT/[id number] 15:30:00 Test Item Value Reference Interpretation Comments Range Protime (test code = 13.9 See_Comment [Autom ated 5902-2) message] The system which generated this result transmitted reference range : 11.9 - 14.2 seconds. The reference range was not used to interpret this result as normal/abnormal . INR (test code = 1.11 See_Comment [Automated 4641-6) message] The system which generated this result transmitted reference range : <=5.90. The reference range was not used to interpret this result as normal/abnormal . PTT (test code = 24.3 See_Comment [Automated 40721-8) message] The system which generated this result [...] valves. Lab Interpretation Normal (test code = 43146-7) [facility] CenterPT/[id number] 15:30:00 Test Item Value Reference Range Interpretation [...] is2.5-3.5 for patients wiht mechanical heart valves.PROTHROMBIN TIME/[id number] 15:29:00 Test Item Value Reference Range Interpretation [...] for patients wiht mechanical heart valves.LACTIC ACID, [id number] 15:26:00 Test Item Value Reference Range Interpretation Comments LACTATE BLOOD 0.9 mmol/L 0.5-2.2 Specimen moder ately ARTERIAL (2) (BEAKER) hemoly zed (test code = 2874) Rnfa ID - DBRAD, CHEST, 1 VIEW, NON [id number] 15:22:00For chest painReason for exam:->post-operativeShould this be performed at the bedside?->YesCH[facility] : 1950 Sex: FFINAL REPORT [...] humeral head suture anchor. Signed: Juan Parekh MDRepsullivan county memorial hospital Verified Date/Time: 07/19/2020 15:22:42 Reading Location: [facility] Radiology Reading Room CBC W/PLT COUNT & AUTO [id number] 15:19:00 Test Item Value Reference Range Interpretation [...] PERCENT (BEAKER) (test code = 2801) Platelet [id number] 14:43:00 Test Item Value Reference Range Interpretation Comments Platelets (test code 428 See_Comment [Autom ated = 777-3) message] The system which generated this result transmit rory reference range : 150 - 450 K/CU MM. The reference range was not u sed to interpret th is result as normal/abnormal . STAR (test code = STAR) Rnfa ID - 6000 Lab Interpretation Normal (test code = 93015-2) [facility] CenterPLATELET [id number] 14:43:00 Test Item Value Reference Range Interpretation Comments PLATELET COUNT (BEAKER) (test 428 K/CU MM 150-450 code = 756) Rnfa ID - 6000GLUCOSE-STAT [id number] 14:39:00 Test Item Value Reference Range Interpretation Comments GLUCOSE RANDOM (BEAKER) (test code 157 mg/dL 70-110 H = 652) Only if arterial line present.HGB/HCT (H&H) - STAT [id number] 14:39:00 Test Item Value Reference Range Interpretation Comments HEMOGLOBIN (BEAKER) (test code = 12.0 GM/DL 12.0-15.0 410) HEMATOCRIT (BEAKER) (test code = 35.0 % 36.0-45.0 L 411) Only if arterial line present.BLOOD GAS, [id number] 14:39:00 Test Item Value Reference Range Interpretation [...] 1819) 44.0 Only if arterial line present.CALCIUM, [id number] 14:39:00 Test Item Value Reference Range Interpretation Comments CALCIUM IONIZED (BEAKER) (test 1.35 mmol/L 1.12-1.27 H code = 698) PH, BLOOD (BEAKER) (test code = 7.31 1810) Sodium Na-Stat [id number] 14:37:00 Test Item Value Reference Range Interpretation Comments Sodium (test code = 138 meq/L 835-701 8296-2) STAR (test code = STAR) Only if arterial line present. Lab Interpretation (test Normal code = 53454-1) [facility] [id number] 14:37:00 Test Item Value Reference Range Interpretation Comments SODIUM (BEAKER) (test code = 381) 138 meq/L 136-145 Only if arterial line present.POTASSIUM-STAT [id number] 14:37:00 Test Item Value Reference Range Interpretation Comments POTASSIUM (BEAKER) (test code = 3.5 meq/L 3.6-5.5 L 379) Only if arterial line present.gloria [id number] 09:19:00 Test Item Value Reference Range Interpretation Comments ABO Grouping (test code = 2588) O Rh Factor (test code = 2589) POS [facility])2020-07-16 14:33:00 Test Item Value Reference Range Interpretation Comments SARS-COV2/RT-PCR (test Negative Not Detected, Negative, code = 1728238) See external report for linked test SARS-COV-2 PERFORMING LAB [facility] PATRICIO (test code = 0998737) Negative result for this test determines that [...] 564(g) of the Act.Fact Sheet for Healthcare Providers:https://www.quidel.com/sites/default/files/product/documents/Fact_[place] e_YG_Qezzbyvit_Ogca_NMUT-JmP-7.pdfFact Sheet for Healthcare Patients:https://www.[employer]/sites/default/files/product/ documents/Etvw_Oxjud_Rvgkystk_Ktyq_DMRE-MgJ-3.pdfPerforming Laboratory:[place] [address], [place] [address]Eocc and screen, automated ([facility])2020-07-16 10:31:00 Test Item Value Reference Range Interpretation Comments ABO/RH AUTOMATED (BERODOLFO) (test O POSITIVE code = 2260) Ab Scrn (test code = 890-4) NEGATIVE [facility]
[2021-03-12 14:34] LABS: Absolute Lymphocytes (CBC) 0.8 K/uL (0.7-4.9); Basophils % 0.3 % (0-1.3); Hematocrit 25.1 % (36.0-45.0); Lymphocytes % 9.7 % (15.3-44.8); MPV 7.5 fL (7.6-11.3); RBC Red Blood Cell Count 3.09 M/uL (3.86-4.86)
[2021-03-12 14:55] LABS: Protime INR 1.06
[2021-03-12 14:57] LABS: Albumin 3.2 g/dL (3.4-5.0); Bilirubin Direct 0.2 mg/dL (0-0.2); Bilirubin Total 0.5 mg/dL (0.2-1.0); C-Reactive Protein 45.2 mg/L (<3.00); Ferritin 26.8 ng/mL (8-388); Potassium 3.7 mmol/L (3.5-5.1); Protein, Total 6.7 g/dL (6.4-8.2); Troponin (Emerg Dept Use Only) 0.21 ng/mL (0.0-0.045)
--- NOTE | 2021-03-12 15:46 | RAD REPORT ---
EXAM DESCRIPTION: Felicia Single View03/12/2021 3:31 pm CLINICAL HISTORY: sob COMPARISON: March 11, 2021 FINDINGS: Mild worsening in bilateral pulmonary opacities. The heart is mildly enlarged IMPRESSION: Mild worsening in ddnr-gd-dtrscyww bilateral pulmonary opacities which represent pulmona ry edema or pneumonia
--- NOTE | 2021-03-12 17:44 | ER ---
Nurse's Notes [facility] [place], [place] Name: Susana Jaffe Age: 71 yrs Sex: Female : 1950 Arrival Date: 03/12/2021 Time: 13:22 Bed 15 Private MD: Diagnosis: Pneumonia due to SARS-associated coronavirus;Hypoxia Presentation: 03/12 13:37 Chief complaint: Patient states: COVID + X 8 days, symptoms started 03-01-21, has had iw fatigue, diff breathing, fell last night , was seen at [facility] yesterday and had a Regeneron treatment, got worse overnight O2 sats in 80's at home, 86% on arrival to ER, up to 92% on 2 L NC. Coronavirus screen: Client presents with at least one sign or symptom that may indicate coronavirus-19. Client reports previous positive COVID test result. Ebola Screen: Patient negative for fever greater than or equal to 101.5 degrees Fahrenheit, and additional compatible Ebola Virus Disease symptoms Patient denies exposure to infectious person. Patient denies travel to an Ebola-affected area in the 21 days before illness onset. No symptoms or risks identified at this time. Initial Sepsis Screen: Does the patient meet any 2 criteria? RR > 20 per min. HR > 90 bpm. Does the patient have a suspected source of infection?. Risk Assessment: Do you want to hurt yourself or someone else? Patient reports no desire to harm self or others. Onset of symptoms was March 01, 2021. 13:37 Method Of Arrival: Wheelchair iw 13:37 Acuity: CINDY 2 iw Historical: - Allergies: 13:40 Iodine; iw - Home Meds: 13:40 atorvastatin 20 mg oral tab 1 tab once daily [Active]; metoprolol tartrate 25 mg Oral iw tab 1 tab once daily [Active]; levothyroxine 25 mcg tab 1 tab once daily [Active]; furosemide 40 mg Oral tab 1 tab once daily [Active]; potassium chloride 20 mEq Oral TbER 1 tab once daily [Active]; clopidogrel 75 mg oral tab 1 tab once daily [Active]; fenofibrate 145 mg oral once daily [Active]; aspirin 81 mg Oral chew 1 tab once daily [Active]; Vitamin C 500 mg Oral tab daily [Active]; Albuterol Inhl [Active]; - PMHx: 13:40 Cancer, Breast; Hyperlipidemia; Hypertension; Hypothyroidism; ruptured colon; iw - PSHx: 13:40 mastectomy-left; Tonsillectomy; Cholecystectomy; hysterectomy; Thyroidectomy; iw Appendectomy; rotator cuff; colon resection; left knee; back; Carotid endarterectomy; - Immunization history:: Client reports receiving the 2nd dose of the Covid vaccine. - Social history:: Smoking status: Patient/guardian denies using tobacco, Stopped _ months ago 8. Screenin:25 Abuse screen: Denies threats or abuse. Denies injuries from another. Nutritional ch5 screening: No deficits noted. Tuberculosis screening: No symptoms or risk factors identified. Fall Risk None identified. Assessment: 14:25 Reassessment: No changes from previously documented assessment. Pain: Denies pain. ch5 Cardiovascular: Rhythm is sinus tachycardia. Respiratory: Airway is compromised Respiratory effort is labored, Breath sounds with wheezes. Vital Signs: 13:37 BP 130 / 113; Pulse 101; Resp 24 S; Temp 99.2; Pulse Ox 95% on R/A; Weight 99.79 kg; iw Height 5 ft. 6 in. (167.64 cm); 14:25 Pulse 105; Resp 22; Pulse Ox 93% on 3 lpm NC; Pain 0/10; ch5 14:29 BP 103 / 66; ch5 13:37 Body Mass Index 35.51 (99.79 kg, 167.64 cm) iw ED Course: 13:22 Patient arrived in ED. as 13:40 Triage completed. iw 13:45 Arm band placed on. iw 13:54 Praveen Pryor, LINCONL is Primary Nurse. ch5 13:54 Ajit Bates NP is PHCP. pm1 13:54 Oren Kurtz MD is Attending Physician. pm1 14:25 Bed in low position. Call light in reach. Side rails up X 1. ch5 14:25 No provider procedures requiring assistance completed. Inserted saline lock: 22 gauge ch5 forearm, using aseptic technique. 14:29 BMP Sent. ch5 14:29 Blood Culture Adult (2) Sent. ch5 14:29 C-Reactive Protein Sent. ch5 14:30 CBC with Diff Sent. ch5 14:30 D-Dimer Sent. ch5 14:30 Ferritin Sent. ch5 15:31 CXR XRAY In Process Unspecified. EDMS 17:43 Tariq Salas MD is Hospitalizing Provider. pm1 Administered Medications: 19:42 Drug: SOLU-Medrol (methylPrednisoLONE) 125 mg Route: IVP; Site: right upper arm; ch5 19:42 Drug: Aspirin 325 mg Route: PO; ch5 19:42 Drug: Eliquis (apixaban) 5 mg Route: PO; ch5 03/13 05:31 Drug: Ativan (LORazepam) 0.5 mg Route: IVP; Site: right antecubital; ch4 05:31 Drug: Lopressor (metoprolol) 5 mg Route: IVP; Site: right antecubital; ch4 Outcome: 03/12 17:43 Decision to Hospitalize by Provider. pm1 03/13 15:57 Patient left the ED. ch5 Signatures: Dispatcher [employer] EDLA Maria Teresa Nichole Irene, RN RN iw Ajit Bates NP MUSEUM EDUCATOR pm1 No Calvin RN RN [facility] Praveen Pryor RN RN ch5 Corrections: (The following items were deleted from the chart) 03/12 13:45 13:40 Home Meds: Dulera inhalation; iw iw
--- NOTE | 2021-03-12 17:44 | EDPHYS ---
Physician Documentation [facility] Name: Susana Jaffe Age: 71 yrs Sex: Female : 1950 Arrival Date: 03/12/2021 Time: : Bed 15 Private MD: ED Physician Oren Kurtz HPI: 03/12 14:01 This 71 yrs old Female presents to ER via Wheelchair with complaints of pm1 Breathing Difficulty - covid+. 14:01 The patient has shortness of breath at rest. Onset: The symptoms/episode began/occurred pm1 Shortness of breath worse for the past 3 days. Duration: The symptoms are continuous, and are steadily getting worse. The patient's shortness of breath is aggravated by nothing, is alleviated by nothing. Associated signs and symptoms: Pertinent positives: productive cough, Pertinent negatives: chest pain, vomiting, Diarrhea. Severity of symptoms: in the emergency department the symptoms are worse. The patient has not experienced similar symptoms in the past. The patient has been recently seen by a physician: with similar presenting complaints, Given Regeneron yesterday by [facility]. 14:01 Patient with fall last night due to generalized weakness. Patient fell on her buttocks. pm1 No back pain, head injury, headache, or neck pain. Historical: - Allergies: 13:40 Iodine; iw - Home Meds: 13:40 atorvastatin 20 mg oral tab 1 tab once daily [Active]; metoprolol tartrate 25 mg Oral iw tab 1 tab once daily [Active]; levothyroxine 25 mcg tab 1 tab once daily [Active]; furosemide 40 mg Oral tab 1 tab once daily [Active]; potassium chloride 20 mEq Oral TbER 1 tab once daily [Active]; clopidogrel 75 mg oral tab 1 tab once daily [Active]; fenofibrate 145 mg oral once daily [Active]; aspirin 81 mg Oral chew 1 tab once daily [Active]; Vitamin C 500 mg Oral tab daily [Active]; Albuterol Inhl [Active]; - PMHx: 13:40 Cancer, Breast; Hyperlipidemia; Hypertension; Hypothyroidism; ruptured colon; iw - PSHx: 13:40 mastectomy-left; Tonsillectomy; Cholecystectomy; hysterectomy; Thyroidectomy; iw Appendectomy; rotator cuff; colon resection; left knee; back; Carotid endarterectomy; - Immunization history:: Client reports receiving the 2nd dose of the Covid vaccine. - Social history:: Smoking status: Patient/guardian denies using tobacco, Stopped _ months ago 8. ROS: 14:01 Eyes: Negative for injury, pain, redness, and discharge, ENT: Negative for injury, pm1 pain, and discharge, Neck: Negative for injury, pain, and swelling, Cardiovascular: Negative for chest pain, palpitations, and edema. 14:01 Abdomen/GI: Negative for abdominal pain, nausea, vomiting, diarrhea, and constipation, Back: Negative for injury and pain, MS/Extremity: Negative for injury and deformity, Skin: Negative for injury, rash, and discoloration. 14:01 Constitutional: Positive for body aches, fever. 14:01 Respiratory: Positive for cough, with green sputum, shortness of breath. 14:01 Neuro: Positive for generalized weakness, Negative for headache, numbness, tingling. Exam: 14:01 Constitutional: This is a well developed, well nourished patient who is awake, alert, pm1 and in no acute distress. Head/Face: Normocephalic, atraumatic. 14:01 Skin: Warm, dry with normal turgor. Normal color with no rashes, no lesions, and no evidence of cellulitis. MS/ Extremity: Pulses equal, no cyanosis. Neurovascular intact. Full, normal range of motion. 14:01 Eyes: Exam is negative for acute changes, Extraocular movements: no acute changes, Conjunctiva: no acute changes, no injection. 14:01 ENT: Exam is negative for acute changes, Mouth: Lips: normal, moist, Oral mucosa: normal, pink and intact, moist. 14:01 Cardiovascular: Rate: tachycardic, actual rate is 104 bpm, Rhythm: regular, Pulses: no pulse deficits are appreciated, Edema: is not appreciated. 14:01 Respiratory: Exam negative for acute changes, respiratory distress, shortness of breath, Breath sounds: decreased breath sounds, that are mild, are heard in the bilateral bases greater on right. 14:01 Abdomen/GI: Exam negative for acute changes, Inspection: abdomen appears normal, Palpation: abdomen is soft and non-tender, in all quadrants. 14:01 Neuro: Exam negative for acute changes, Orientation: is normal, Mentation: is normal, Motor: is normal, moves all fours. Vital Signs: 13:37 BP 130 / 113; Pulse 101; Resp 24 S; Temp 99.2; Pulse Ox 95% on R/A; Weight 99.79 kg; iw Height 5 ft. 6 in. (167.64 cm); 14:25 Pulse 105; Resp 22; Pulse Ox 93% on 3 lpm NC; Pain 0/10; ch5 14:29 BP 103 / 66; ch5 13:37 Body Mass Index 35.51 (99.79 kg, 167.64 cm) iw MDM: 13:55 Patient medically screened. pm1 17:20 Data reviewed: vital signs. Data interpreted: Pulse oximetry: on 3L(s) per nasal pm1 canula, is 93 %. Interpretation: acceptable. 17:41 Physician consultation: Tariq Salas MD was contacted at 17:41, regarding admission, pm1 patient's condition, and will see patient in ED, shortly, would like medications started, Eliquis 5 mg PO Now. 03/12 13:56 Order name: BMP 03/12 13:56 Order name: Blood Culture Adult (2) pm03/12 13:56 Order name: C-Reactive Protein 03/12 13:56 Order name: CBC with Diff 03/12 13:56 Order name: D-Dimer 03/12 13:56 Order name: Ferritin 03/12 13:56 Order name: Flu; Complete Time: 16:47 pm03/12 13:56 Order name: LFT's; Complete Time: 16:47 pm03/12 13:56 Order name: Lactate; Complete Time: 12:51 pm03/12 13:56 Order name: Lipase; Complete Time: 16:47 pm03/12 13:56 Order name: PT-INR; Complete Time: 16:47 pm03/12 13:56 Order name: Procalcitonin; Complete Time: 16:47 pm03/12 13:56 Order name: Ptt, Activated; Complete Time: 16:47 pm03/12 13:56 Order name: Strep; Complete Time: 16:47 pm03/12 13:56 Order name: Troponin (emerg Dept Use Only); Complete Time: 16:47 pm03/12 13:56 Order name: Urine Microscopic Only 03/12 13:56 Order name: Basic Metabolic Panel; Complete Time: 16:47 EDMS 03/12 13:56 Order name: Blood Culture EDMS 03/12 13:56 Order name: C-Reactive Protein; Complete Time: 16:47 EDMS 03/12 13:56 Order name: CBC with Automated Diff; Complete Time: 16:47 EDMS 03/12 13:56 Order name: D-Dimer; Complete Time: 16:47 EDMS 03/12 13:56 Order name: Ferritin; Complete Time: 16:47 EDMS 03/12 15:12 Order name: Throat Culture EDMS 03/12 19:58 Order name: Hemoglobin A1c; Complete Time: 12:51 EDMS 03/12 19:58 Order name: Comprehensive Metabolic Panel EDMS 03/12 19:58 Order name: Comprehensive Metabolic Panel; Complete Time: 12:51 EDMS 03/12 19:58 Order name: Comprehensive Metabolic Panel EDMS 03/12 19:58 Order name: Comprehensive Metabolic Panel EDMS 03/12 19:59 Order name: CBC with Automated Diff EDMS 03/12 19:59 Order name: CBC with Automated Diff; Complete Time: 12:51 EDMS 03/12 13:56 Order name: CXR XRAY; Complete Time: 16:47 pm1 03/12 13:56 Order name: EKG; Complete Time: 13:57 pm03/12 13:56 Order name: Cardiac monitoring; Complete Time: 14:30 pm03/12 13:56 Order name: Droplet/Contact Precautions; Complete Time: 14:31 pm03/12 13:56 Order name: EKG - Nurse/Tech; Complete Time: 15:39 pm03/12 13:56 Order name: IV Start; Complete Time: 14:36 pm03/12 13:56 Order name: Labs collected and sent; Complete Time: 14:31 pm03/12 13:56 Order name: O2 Per Protocol; Complete Time: 14:31 pm03/12 13:56 Order name: O2 Sat Monitoring; Complete Time: 14:31 pm03/12 13:56 Order name: Urine Dipstick-Ancillary (obtain specimen) pm1 03/12 19:59 Order name: CBC with Automated Diff EDMS 03/12 19:59 Order name: CBC with Automated Diff EDMS 03/12 20:01 Order name: CONS Physician Consult EDMS 03/13 04:06 Order name: Lactate Sepsis 2 HR Follow-up; Complete Time: 12:51 EDMS Administered Medications: 19:42 Drug: SOLU-Medrol (methylPrednisoLONE) 125 mg Route: IVP; Site: right upper arm; ch5 19:42 Drug: Aspirin 325 mg Route: PO; ch5 19:42 Drug: Eliquis (apixaban) 5 mg Route: PO; ch5 03/13 05:31 Drug: Ativan (LORazepam) 0.5 mg Route: IVP; Site: right antecubital; ch4 05:31 Drug: Lopressor (metoprolol) 5 mg Route: IVP; Site: right antecubital; ch4 Disposition: 03/14 15:11 Co-signature as Attending Physician, Oren Kurtz MD I agree with the assessment and jovany plan of care. Disposition Summary: 03/12/21 17:43 Hospitalization Ordered Hospitalization Status: Inpatient Admission pm1 Provider: Tariq Salas pm1 Condition: Stable pm1 Problem: new pm1 Symptoms: have improved pm1 Bed/Room Type: Standard pm1 Location: Telemetry/MedSurg (Inpatient)(03/13/21 15:12) [facility] Room Assignment: 419(03/13/21 15:12) [facility] Diagnosis - Pneumonia due to SARS-associated coronavirus pm1 - Hypoxia pm1 Forms: - Medication Reconciliation Form pm1 - SBAR form pm1 Signatures: Dispatcher [employer] EDTX Oren Kurtz MD MD cha Williams, Irene, RN RN Marc Lau, FORGE OPERATOR-C FORGE OPERATOR-Cla1 Lashonda Torres RN RN Ajit Bates, REBECCA VENDING MACHINE OPERATOR pm1 Cedrick Dwyer RN RN [facility] No Calvin RN RN [facility] Praveen Pryor RN RN ch5 Corrections: (The following items were deleted from the chart) 03/12 13:45 13:40 Home Meds: Dulera inhalation; iw iw 20:04 13:56 Ambriz ordered. pm1 ch4 22:52 17:43 Telemetry/MedSurg (Inpatient) pm1 cg 22:52 17:43 pm1 cg 03/13 15:12 03/12 22:52 [facility] ER HOLD [facility] 03/13 15:12 09/04 22:52 ERHOLD- cg ja1
[2021-03-12] MEDS ORDERED: ASPIRIN 325 MG TAB ONE (19:21)
[2021-03-12] MEDS ORDERED: METHYLPREDNISOLONE 125 MG INJ ONE (19:21)
[2021-03-12] MEDS ORDERED: APIXABAN 5 MG TABLET ONE (19:22)
[2021-03-12] MEDS ORDERED: ONDANSETRON 4 MG/2 ML VIAL IV PRN (19:55)
[2021-03-12] MEDS: D5 0.45 NS 1,000 ML IV SCH (20:00)
--- NOTE | 2021-03-12 20:07 | P.HP ---
Certification for Inpatient Patient admitted to: Inpatient With expected LOS: >2 Midnights Patient will require the following post-hospital care: Home Health Services (home oxygen) Practitioner: I am a practitioner with admitting privileges, knowledge of patient current condition, hospital course, and medical plan of care. Services: Services provided to patient in accordance with Admission requirements found in Title 42 Section 412.3 of the Code of Federal Regulations Patient History Date of Service: 03/12/21 Primary Care Provider: Bindu Reason for admission: covid pneumonia History of Present Illness: Patient is a pleasant woman with a history of cad, copd, htn, hyperlipidemia and hypothyroidism. She was diagnoised with covid 8 days ago. As well as her . She was doing well at home. The patient however had a drop in her oxygen to 78 on her home pulse oximeter. She has been getting fairly good treatment. The patient did get a dose of regen-cov yesterday. However as she was feeling sob she came to the ER. Was found to have a bilateral pneumonia. She is currently resting comfortably on nasal oxygen. She has no other complaints except for the cot being uncomfortable. Allergies iodine Allergy (Verified 06/30/20 15:31) Anaphylaxis/Hemorrhage/Hives Home Medications: Ascorbic Acid [Vitamin C*] 500 mg PO DAILY 09/21/20 Aspirin [Aspirin EC] 81 mg PO DAILY 09/21/20 Atorvastatin Calcium [Lipitor*] 20 mg PO BEDTIME 09/21/20 Clopidogrel Bisulfate [Plavix*] 75 mg PO DAILY 09/21/20 Fenofibrate [Tricor*] 145 mg PO DAILY 09/21/20 Alprazolam [Xanax] 0.5 mg PO BID PRN #30 tablet 11/09/20 Cyanocobalamin/Cobamamide [Vitamin B-12 5,000 Mcg Tab Sl] 1 each SL DAILY #30 tab.subl 11/09/20 Ferrous Sulfate [Ferrous Sulfate Elixir] 5 ml PO Q12H #300 ml 11/09/20 Folic Acid 1 mg PO DAILY #30 tablet 11/09/20 Metoprolol Tartrate [Lopressor*] 25 mg PO BID #60 tab 11/09/20 - Past Medical/Surgical History Diabetic: No -: Carotid artery disease -: HTN -: HLD -: breast cancer -: hypothyroidism -: mastectomy -: carotid endarterectomy -: back surgery -: right shoulder -: hysterectomy -: colon resection -: cholecystectomy -: appendectomy, thyroidectomy, tonsillectomy - Family History Mother -: Heart disease Father -: Diabetes, Cancer - Social History Alcohol use: No CD- Drugs: No Caffeine use: Yes Review of Systems 10-point ROS is otherwise unremarkable Respiratory: Shortness of Breath Physical Examination - Physical Exam General: Alert, In no apparent distress HEENT: Atraumatic, PERRLA, Mucous membr. moist/pink, EOMI, Sclerae nonicteric Neck: Supple, 2+ carotid pulse no bruit, No LAD, Without JVD or thyroid abnormality Respiratory: Clear to auscultation bilaterally, Crackles/rales (at the bases) Cardiovascular: Regular rate/rhythm, Normal S1 S2 Gastrointestinal: Normal bowel sounds, No tenderness Musculoskeletal: No tenderness Integumentary: No rashes Neurological: Normal gait, Normal speech, Normal strength at 5/5 x4 extr, Normal tone, Normal affect Lymphatics: No axilla or inguinal lymphadenopathy - Studies Laboratory Data (last 24 hrs) 03/12/21 14:00: PT 12.2, INR 1.06, APTT 23.2 L 03/12/21 14:00: WBC 7.80, Hgb 8.0 L, Hct 25.1 L, Plt Count 371 03/12/21 14:00: Sodium 140, Potassium 3.7, BUN 17, Creatinine 0.98, Glucose 126 H, Total Bilirubin 0.5, AST 27, ALT 15, Alkaline Phosphatase 57, Lipase 115 Microbiology Data (last 24 hrs): 03/12/21 14:31 Nasopharnyx Influenza Type A Antigen Screen - Final 03/12/21 14:31 Nasopharnyx Influenza Type B Antigen Screen - Final 03/12/21 14:31 Throat Group A Streptococcus Rapid Screen - Final Assessment and Plan - Problems (Diagnosis) (1) COVID Current Visit: Yes Status: Acute Plan: will admit her to the hospital. Continue oxygen and steroids. Will consult Dr. Mcginnis. (2) COPD (chronic obstructive pulmonary disease) Current Visit: Yes Status: Acute Plan: stable at this time. Not on home inhalers. Will hold off on nebulizers Qualifiers: COPD type: chronic bronchitis (3) CAD (coronary artery disease) Current Visit: Yes Status: Acute Plan: No active chest pain. Continue plavix statin, and metoprolol. Hold asa. Will be starting the pt on eliquis Qualifiers: Coronary Disease-Associated Artery/Lesion type: [place] artery (4) Hypertension Current Visit: No Status: Chronic Plan: continue home medications. Adjust as appropriate. Qualifiers: Hypertension type: primary hypertension Qualified Code(s): I10 - Essential (primary) hypertension (5) Hypothyroidism Current Visit: No Status: Chronic Plan: check her tsh Qualifiers: Hypothyroidism type: unspecified Qualified Code(s): E03.9 - Hypothyroidism, unspecified Discharge Plan: Home Plan to discharge in: Greater than 2 days - Advance Directives Does patient have a Living Will: Yes Does patient have a Durable POA for Healthcare: Yes - Code Status/Comfort Care Code Status Assessed: Yes Code Status: Full Code Physician Review: Patient Assessed, Agree with Above Assessment and Plan Critical Care: No Time Spent Managing Pts Care (In Minutes): 45
[2021-03-12] MEDS: METOPROLOL TAR 25 MG TAB PO SCH (21:00)
[2021-03-12] MEDS: ATORVASTATIN 20 MG TAB PO SCH (21:00)
[2021-03-12] MEDS ORDERED: METHYLPREDNISOLONE 40 MG INJ ONE (21:36)
[2021-03-12] MEDS ORDERED: D5 0.45 NS 1,000 ML IV ONE (22:16)
[2021-03-13] MEDS: METHYLPREDNISOLONE 40 MG INJ IV SCH ×4 (00:01→21:00)
[2021-03-13 00:19] VITALS: BMI 35.5
[2021-03-13] MEDS ORDERED: METHYLPRED NA SUC 80 MG in NA CHLORIDE 0.9% 100 ML IV SCH (01:00)
[2021-03-13 03:45] LABS: Absolute Lymphocytes (CBC) 0.8 K/uL (0.7-4.9); Basophils % 0.7 % (0-1.3); Hematocrit 24.3 % (36.0-45.0); Lymphocytes % 14.2 % (15.3-44.8); MPV 7.6 fL (7.6-11.3); RBC Red Blood Cell Count 2.97 M/uL (3.86-4.86)
[2021-03-13 04:11] LABS: Albumin 2.9 g/dL (3.4-5.0); Bilirubin Total 0.3 mg/dL (0.2-1.0); Potassium 4.3 mmol/L (3.5-5.1); Protein, Total 6.3 g/dL (6.4-8.2)
[2021-03-13] MEDS ORDERED: METOPROLOL TARTRATE 5 MG/5 ML INJ IV ONE (05:36)
[2021-03-13] MEDS ORDERED: LORazepam 2 MG/ML VIAL ONE (05:36)
[2021-03-13] MEDS: D5 0.45 NS 1,000 ML IV SCH ×2 (06:00→16:28)
[2021-03-13] MEDS: PANTOPRAZOLE 40MG TABLET PO SCH (06:06)
[2021-03-13] MEDS ORDERED: PANTOPRAZOLE 40MG TABLET PO ONE (06:27)
[2021-03-13] MEDS ORDERED: ASCORBIC ACID 500 MG TABLET ONE ×2 (07:37→09:25)
[2021-03-13] MEDS ORDERED: METHYLPREDNISOLONE 125 MG INJ ONE ×2 (07:37→22:16)
[2021-03-13] MEDS ORDERED: ZINC SULFATE 220 MG CAP ONE (07:38)
[2021-03-13] MEDS: METOPROLOL TAR 25 MG TAB PO SCH (08:44)
[2021-03-13] MEDS: FOLIC ACID 1 MG TABLET PO SCH (08:44)
[2021-03-13] MEDS: VITAMIN D 5,000 UNIT CAP PO SCH (08:45)
[2021-03-13] MEDS: ZINC SULFATE 220 MG CAP PO SCH (08:45)
[2021-03-13] MEDS: CLOPIDOGREL 75 MG TABLET PO SCH (08:45)
[2021-03-13] MEDS: ASCORBIC ACID 500 MG TABLET PO SCH (08:45)
[2021-03-13] MEDS: carvediloL 6.25 MG TAB PO SCH ×2 (17:58→17:59)
[2021-03-13] MEDS ORDERED: carvediloL 6.25 MG TAB ONE (18:15)
[2021-03-13] MEDS: ALPRAZOLAM 0.5 MG TABLET PO PRN (19:32)
[2021-03-13] MEDS: ATORVASTATIN 20 MG TAB PO SCH (19:32)
--- NOTE | 2021-03-13 20:48 | P.CNS ---
Date of Consult: 03/13/21 Primary Care Provider: Bindu Chief Complaint: covid pneumonia History of Present Illness: AGe 71 with metabloci syndrome AW COVIDpenumonia and resp failure, TX with REGEN. Bialteral penumonia Allergies iodine Allergy (Verified 06/30/20 15:31) Anaphylaxis/Hemorrhage/Hives Home Medications: Ascorbic Acid [Vitamin C*] 500 mg PO DAILY 09/21/20 Aspirin [Aspirin EC] 81 mg PO DAILY 09/21/20 Atorvastatin Calcium [Lipitor*] 20 mg PO BEDTIME 09/21/20 Clopidogrel Bisulfate [Plavix*] 75 mg PO DAILY 09/21/20 Fenofibrate [Tricor*] 145 mg PO DAILY 09/21/20 Alprazolam [Xanax] 0.5 mg PO BID PRN #30 tablet 11/09/20 Cyanocobalamin/Cobamamide [Vitamin B-12 5,000 Mcg Tab Sl] 1 each SL DAILY #30 tab.subl 11/09/20 Ferrous Sulfate [Ferrous Sulfate Elixir] 5 ml PO Q12H #300 ml 11/09/20 Folic Acid 1 mg PO DAILY #30 tablet 11/09/20 Metoprolol Tartrate [Lopressor*] 25 mg PO BID #60 tab 11/09/20 - Past Medical/Surgical History Diabetic: No -: Carotid artery disease -: HTN -: HLD -: breast cancer -: hypothyroidism -: mastectomy -: carotid endarterectomy -: back surgery -: right shoulder -: hysterectomy -: colon resection -: cholecystectomy -: appendectomy, thyroidectomy, tonsillectomy - Family History Mother Medical History: Heart disease Father Medical History: Diabetes, Cancer - Social History Smoking Status: Unknown if ever smoked Alcohol use: No CD- Drugs: No Caffeine use: Yes Review of Systems General: Weakness Respiratory: Shortness of Breath Physical Examination Temp Pulse Resp BP Pulse Ox 98.0 F 141 H 22 H 104/71 95 03/13/21 07:47 03/13/21 17:58 03/13/21 16:00 03/13/21 17:58 03/13/21 16:00 General: Alert, Oriented x3, Cooperative Respiratory: Clear to auscultation bilaterally - Problems (1) COVID-19 Current Visit: Yes Status: Acute Plan: age 71 AWCOVID penumoniaSAt Satisfactory on 2 l NC plan for discharge home am if stabel on pred 20 BID for a week then 10 BID and CW asprin
[2021-03-13] MEDS: DIGOXIN 0.125 MG TABLET PO SCH (21:54)
[2021-03-13] MEDS ORDERED: DIGOXIN 0.125 MG TABLET ONE (22:08)
[2021-03-14] MEDS: PANTOPRAZOLE 40MG TABLET PO SCH (05:41)
[2021-03-14 05:56] LABS: Absolute Lymphocytes (CBC) 1.1 K/uL (0.7-4.9); Basophils % 0.2 % (0-1.3); Hematocrit 23.5 % (36.0-45.0); Lymphocytes % 9.5 % (15.3-44.8); MPV 7.8 fL (7.6-11.3); RBC Red Blood Cell Count 2.89 M/uL (3.86-4.86)
[2021-03-14 06:05] LABS: Albumin 2.6 g/dL (3.4-5.0); Bilirubin Total 0.3 mg/dL (0.2-1.0); Potassium 3.9 mmol/L (3.5-5.1); Protein, Total 5.8 g/dL (6.4-8.2)
[2021-03-14 07:54] LABS: Anisocytosis 1+; Blood Morphology Comment NOTED (NOT SEEN); Platelet Estimate ADEQ; Polychromasia SLIGHT; White Blood Cell Scan OK (OK)
[2021-03-14] MEDS: FOLIC ACID 1 MG TABLET PO SCH (09:07)
[2021-03-14] MEDS: APIXABAN 5 MG TABLET PO SCH ×2 (09:08→20:23)
[2021-03-14] MEDS: ZINC SULFATE 220 MG CAP PO SCH (09:09)
[2021-03-14] MEDS: carvediloL 6.25 MG TAB PO SCH ×2 (09:09→20:52)
[2021-03-14] MEDS: METHYLPREDNISOLONE 40 MG INJ IV SCH ×2 (09:09→20:24)
[2021-03-14] MEDS: CLOPIDOGREL 75 MG TABLET PO SCH (09:09)
[2021-03-14] MEDS: ASCORBIC ACID 500 MG TABLET PO SCH (09:10)
[2021-03-14] MEDS: VITAMIN D 5,000 UNIT CAP PO SCH (09:10)
[2021-03-14] MEDS: DIGOXIN 0.125 MG TABLET PO SCH (09:10)
--- NOTE | 2021-03-14 11:21 | P.PN ---
Subjective Date of Service: 03/14/21 Primary Care Provider: Bindu Chief Complaint: covid pneumonia Subjective: Improving (Patient is improving on 3 L of nasal cannula oxygen anemic denies any bleeding) Review of Systems General: Weakness Respiratory: Shortness of Breath Physical Examination - Vital Signs Temperature: 98.2 F Blood Pressure: 96/55 Pulse: 121 Respirations: 16 Pulse Ox (%): 95 - Physical Exam General: Alert, Oriented x3, Cooperative - Studies Microbiology Data (last 24 hrs): 03/12/21 14:31 Throat Culture & Sensitivity - Final NORMAL UPPER RESPIRATORY RAMONE GROWN. Assessment & Plan - Problems (Diagnosis) (1) COVID-19 Current Visit: Yes Status: Acute Plan: Condition stable continue to monitor possible discharge tomorrow set up for home oxygen (2) Anemia Current Visit: Yes Status: Acute Plan: Patient has anemia normocytic anemia she has been anemic since May denies any hi story of GI bleeding Qualifiers: Anemia type: unspecified type Qualified Code(s): D64.9 - Anemia, unspecified Physician Review: Patient Assessed, Agree with Above Assessment and Plan
--- NOTE | 2021-03-14 12:31 | P.PN ---
Subjective Date of Service: 03/13/21 Primary Care Provider: Bindu Chief Complaint: covid pneumonia Subjective: No new changes Review of Systems 10-point ROS is otherwise unremarkable Physical Examination - Vital Signs Temperature: 98.0 F Blood Pressure: 87/51 Pulse: 123 Respirations: 20 Pulse Ox (%): 93 - Physical Exam General: Alert, In no apparent distress HEENT: Atraumatic, PERRLA, EOMI Neck: Supple, JVD not distended Respiratory: Clear to auscultation bilaterally, Normal air movement Cardiovascular: Regular rate/rhythm, Normal S1 S2 Gastrointestinal: Normal bowel sounds, No tenderness Musculoskeletal: No tenderness Integumentary: No rashes Neurological: Normal speech, Normal tone, Normal affect Lymphatics: No axilla or inguinal lymphadenopathy - Studies Microbiology Data (last 24 hrs): 03/12/21 14:31 Throat Culture & Sensitivity - Final NORMAL UPPER RESPIRATORY RAMONE GROWN. Assessment & Plan - Problems (Diagnosis) (1) COVID Current Visit: Yes Status: Acute Plan: will admit her to the hospital. Continue oxygen and steroids. Will consult Dr. Mcginnis. (2) COPD (chronic obstructive pulmonary disease) Current Visit: Yes Status: Acute Plan: stable at this time. Not on home inhalers. Will hold off on nebulizers Qualifiers: COPD type: chronic bronchitis (3) CAD (coronary artery disease) Current Visit: Yes Status: Acute Plan: No active chest pain. Continue plavix statin, and metoprolol. Hold asa. Will be starting the pt on eliquis Qualifiers: Coronary Disease-Associated Artery/Lesion type: [place] artery (4) Hypertension Current Visit: No Status: Chronic Plan: continue home medications. Adjust as appropriate. Qualifiers: Hypertension type: primary hypertension Qualified Code(s): I10 - Essential (primary) hypertension (5) Hypothyroidism Current Visit: No Status: Chronic Plan: check her tsh Qualifiers: Hypothyroidism type: unspecified Qualified Code(s): E03.9 - Hypothyroidism, unspecified Discharge Plan: Home Plan to discharge in: 48 Hours - Code Status/Comfort Care Code Status Assessed: No Physician Review: Patient Assessed, Agree with Above Assessment and Plan Critical Care: No Time Spent Managing Pts Care (In Minutes): 20
--- NOTE | 2021-03-14 12:37 | P.PN ---
Subjective Date of Service: 03/14/21 Primary Care Provider: Bindu Chief Complaint: covid pneumonia Subjective: New changes (patient is more short of breath with her in the room. This has been the case in the ER as well. She has mulitple complaints about staff that have treated her over the years. Even the physicians who have retired. Requesting I fire nursing staff yesterday.(Which I dont have the authority)) Review of Systems 10-point ROS is otherwise unremarkable Respiratory: Shortness of Breath Physical Examination - Vital Signs Temperature: 98.0 F Blood Pressure: 87/51 Pulse: 123 Respirations: 20 Pulse Ox (%): 93 - Physical Exam General: Alert, In no apparent distress HEENT: Atraumatic, PERRLA, EOMI Neck: Supple, JVD not distended Respiratory: Clear to auscultation bilaterally, Normal air movement Cardiovascular: Regular rate/rhythm, Normal S1 S2 Gastrointestinal: Normal bowel sounds, No tenderness Musculoskeletal: No tenderness Integumentary: No rashes Neurological: Normal speech, Normal tone, Normal affect Lymphatics: No axilla or inguinal lymphadenopathy - Studies Microbiology Data (last 24 hrs): 03/12/21 14:31 Throat Culture & Sensitivity - Final NORMAL UPPER RESPIRATORY RAMONE GROWN. Assessment & Plan - Problems (Diagnosis) (1) COVID Current Visit: Yes Status: Acute Plan: will admit her to the hospital. Continue oxygen and steroids. Will consult Dr. Mcginnis. 03/14 Doing well. will ambulate her to see for desaturation. Will most likely need home o2. Plan for discharge tomorrow. (2) COPD (chronic obstructive pulmonary disease) Current Visit: Yes Status: Acute Plan: stable at this time. Not on home inhalers. Will hold off on nebulizers Qualifiers: COPD type: chronic bronchitis (3) CAD (coronary artery disease) Current Visit: Yes Status: Acute Plan: No active chest pain. Continue plavix statin, and metoprolol. Hold asa. Will be starting the pt on eliquis Qualifiers: Coronary Disease-Associated Artery/Lesion type: [place] artery (4) Hypertension Current Visit: No Status: Chronic Plan: continue home medications. Adjust as appropriate. Qualifiers: Hypertension type: primary hypertension Qualified Code(s): I10 - Essential (primary) hypertension (5) Hypothyroidism Current Visit: No Status: Chronic Plan: check her tsh Qualifiers: Hypothyroidism type: unspecified Qualified Code(s): E03.9 - Hypothyroidism, unspecified (6) SVT (supraventricular tachycardia) Current Visit: Yes Status: Acute Plan: will keep her on coreg and digoxin. She seems very agitated. She is clinically stable. BP is slightly low. Will have Dr. Brambila see her. (7) Anemia Current Visit: No Status: Chronic Plan: Have suggested an out patient work up. Dr. Mcginnis has placed her on iron tablets. Which she has refused. Have discussed an outpatient GI workup. She states she most likely will not do that. Qualifiers: Anemia type: unspecified type Qualified Code(s): D64.9 - Anemia, unspecified Discharge Plan: Home Plan to discharge in: 24 Hours - Code Status/Comfort Care Code Status Assessed: No Physician Review: Patient Assessed, Agree with Above Assessment and Plan Critical Care: No Time Spent Managing Pts Care (In Minutes): 20
[2021-03-14] MEDS ORDERED: NA CHLORIDE 0.9% 1,000 ML ONE (13:39)
--- NOTE | 2021-03-14 17:00 | EKG ---
Test Date: 2021-03-12 Test Time: 17:34:29 Metal Treater: ELIZABET MEASUREMENT RESULTS: Intervals: Rate: 95 HI: 104 QRSD: 88 QT: 364 QTc: 457 [place]: P: 16 HI: 104 QRS: 30 T: 45 INTERPRETIVE STATEMENTS: Sinus rhythm with short HI Otherwise normal ECG Compared to ECG 11/09/2020 07:21:21 Short HI interval now present Electronically Signed On 03-14-21 16:56:21 CDT by Joel Shaver
[2021-03-14] MEDS ORDERED: DIGOXIN 0.25 MG/ML AMP IV ONE (18:00)
[2021-03-14] MEDS: ALPRAZOLAM 0.5 MG TABLET PO PRN (20:23)
[2021-03-14] MEDS: ATORVASTATIN 20 MG TAB PO SCH (20:23)
[2021-03-15] MEDS: PANTOPRAZOLE 40MG TABLET PO SCH (05:30)
[2021-03-15 05:38] LABS: Absolute Lymphocytes (CBC) 1.2 K/uL (0.7-4.9); Basophils % 0.1 % (0-1.3); Hematocrit 23.8 % (36.0-45.0); Lymphocytes % 9.8 % (15.3-44.8); MPV 7.8 fL (7.6-11.3); RBC Red Blood Cell Count 2.92 M/uL (3.86-4.86)
[2021-03-15 05:52] LABS: Albumin 2.6 g/dL (3.4-5.0); Bilirubin Total 0.3 mg/dL (0.2-1.0); Potassium 4.8 mmol/L (3.5-5.1); Protein, Total 5.5 g/dL (6.4-8.2)
[2021-03-15] MEDS: DIGOXIN 0.125 MG TABLET PO SCH (08:54)
[2021-03-15] MEDS: CLOPIDOGREL 75 MG TABLET PO SCH (08:54)
[2021-03-15] MEDS: FOLIC ACID 1 MG TABLET PO SCH (08:54)
[2021-03-15] MEDS: APIXABAN 5 MG TABLET PO SCH (08:55)
[2021-03-15] MEDS: VITAMIN D 5,000 UNIT CAP PO SCH (08:55)
[2021-03-15] MEDS: ZINC SULFATE 220 MG CAP PO SCH (08:55)
[2021-03-15] MEDS: ASCORBIC ACID 500 MG TABLET PO SCH (08:55)
[2021-03-15] MEDS: carvediloL 6.25 MG TAB PO SCH (08:55)
[2021-03-15] MEDS: METHYLPREDNISOLONE 40 MG INJ IV SCH (08:55)
--- NOTE | 2021-03-15 10:52 | P.DS ---
Admission Date: 03/12/21 Discharge Date: 03/15/21 Primary Care Provider: Bindu Disposition: ROUTINE DISCHARGE Discharge Condition: GOOD Reason for Admission: covid pneumonia - Problems (1) COVID Current Visit: Yes Status: Acute (2) COPD (chronic obstructive pulmonary disease) Current Visit: Yes Status: Acute Qualifiers: COPD type: chronic bronchitis (3) CAD (coronary artery disease) Current Visit: Yes Status: Acute Qualifiers: Coronary Disease-Associated Artery/Lesion type: [place] artery (4) Hypertension Current Visit: No Status: Chronic Qualifiers: Hypertension type: primary hypertension Qualified Code(s): I10 - Essential (primary) hypertension (5) Hypothyroidism Current Visit: No Status: Chronic Qualifiers: Hypothyroidism type: unspecified Qualified Code(s): E03.9 - Hypothyroidism, unspecified (6) SVT (supraventricular tachycardia) Current Visit: Yes Status: Acute (7) Anemia Current Visit: No Status: Chronic Qualifiers: Anemia type: unspecified type Qualified Code(s): D64.9 - Anemia, unspecified Brief History of Present Illness: Patient is a pleasant woman with a history of cad, copd, htn, hyperlipidemia and hypothyroidism. She was diagnoised with covid 8 days ago. As well as her . She was doing well at home. The patient however had a drop in her oxygen to 78 on her home pulse oximeter. She has been getting fairly good treatment. The patient did get a dose of regen-cov yesterday. However as she was feeling sob she came to the ER. Was found to have a bilateral pneumonia. She is currently resting comfortably on nasal oxygen. She has no other complaints except for the cot being uncomfortable. Hospital Course: Patient admitted for covid. She was doing well at home Started having some hypoxia. She is on [place] oxygen. She had some bradycardia. Was seen by Dr. Shaver. Who was ok with her atrial fib. The patient will have home oxygen Vital Signs/Physical Exam: Temp Pulse Resp BP Pulse Ox 97.8 F 90 20 108/79 97 03/15/21 08:00 03/15/21 08:55 03/15/21 08:00 03/15/21 08:55 03/15/21 08:00 General: Alert, In no apparent distress HEENT: Atraumatic, PERRLA, EOMI Neck: Supple, JVD not distended Respiratory: Clear to auscultation bilaterally, Normal air movement Cardiovascular: Regular rate/rhythm, Normal S1 S2 Gastrointestinal: Normal bowel sounds, No tenderness Musculoskeletal: No tenderness Integumentary: No rashes Neurological: Normal speech, Normal tone, Normal affect Lymphatics: No axilla or inguinal lymphadenopathy Laboratory Data at Discharge: WBC 12.10 K/uL (4.3-10.9) H 03/15/21 04:38 Hgb 7.4 g/dL (12.0-15.0) L 03/15/21 04:38 Hct 23.8 % (36.0-45.0) L 03/15/21 04:38 Plt Count 435 K/uL (152-406) H 03/15/21 04:38 PT 12.2 SECONDS (9.5-12.5) 03/12/21 14:00 INR 1.06 03/12/21 14:00 APTT 23.2 SECONDS (24.3-36.9) L 03/12/21 14:00 Sodium 142 mmol/L (136-145) 03/15/21 04:38 Potassium 4.8 mmol/L (3.5-5.1) 03/15/21 04:38 BUN 39 mg/dL (7-18) H 03/15/21 04:38 Creatinine 0.95 mg/dL (0.55-1.3) 03/15/21 04:38 Glucose 136 mg/dL (74-106) H 03/15/21 04:38 Total Bilirubin 0.3 mg/dL (0.2-1.0) 03/15/21 04:38 AST 16 U/L (15-37) 03/15/21 04:38 ALT 13 U/L (12-78) 03/15/21 04:38 Alkaline Phosphatase 48 U/L (45-117) 03/15/21 04:38 Lipase 115 U/L (73-393) 03/12/21 14:00 Home Medications: Ascorbic Acid [Vitamin C*] 500 mg PO DAILY 09/21/20 Aspirin [Aspirin EC] 81 mg PO DAILY 09/21/20 Atorvastatin Calcium [Lipitor*] 20 mg PO BEDTIME 09/21/20 Clopidogrel Bisulfate [Plavix*] 75 mg PO DAILY 09/21/20 Fenofibrate [Tricor*] 145 mg PO DAILY 09/21/20 Alprazolam [Xanax] 0.5 mg PO BID PRN #30 tablet 11/09/20 Cyanocobalamin/Cobamamide [Vitamin B-12 5,000 Mcg Tab Sl] 1 each SL DAILY #30 tab.subl 11/09/20 Ferrous Sulfate [Ferrous Sulfate Elixir] 5 ml PO Q12H #300 ml 11/09/20 Folic Acid 1 mg PO DAILY #30 tablet 11/09/20 Metoprolol Tartrate [Lopressor*] 25 mg PO BID #60 tab 11/09/20 Diet: AHA Activity: Ad mattie Followup: Jarad Ruano MD [Primary Care Provider] - 1-2 Weeks Joel Shaver MD [ACTIVE - CAN ADMIT] - 1-2 Weeks Time spent managing pt's care (in minutes): 30
--- NOTE | 2021-03-15 11:01 | EKG ---
Test Date: 2021-03-13 Test Time: 05:12:00 Sports Leadership Instructor: OLAYINKA MEASUREMENT RESULTS: Intervals: Rate: 138 CT: QRSD: 78 QT: 282 QTc: 427 [place]: P: CT: QRS: 52 T: 6 INTERPRETIVE STATEMENTS: Atrial fibrillation with rapid ventricular response Nonspecific ST and T wave abnormality Abnormal ECG Compared to ECG 03/12/2021 17:34:29 ST (T wave) deviation now present Sinus rhythm no longer present Short CT interval no longer present Electronically Signed On 03-15-21 10:54:39 CDT by Joel Shaver
[2021-03-15 13:09] VITALS: O2SAT 98
[2021-03-15 13:42] VITALS: BP 101/54; TEMP 97.5
--- NOTE | 2021-03-15 14:46 | CON ---
Date of Consultation: 03/14/2021 Reason For Consultation: Atrial fibrillation and COVID pneumonia. History Of Present Illness: Ms. Jaffe is 71. She is very well known to me from previous office visit s and admission. Has a history of hypertension, dyslipidemia, cerebrovascular disease, status post c arotid endarterectomy, diastolic congestive heart failure, paroxysmal atrial fibrillation, is admitte d with COVID and actually doing well, but she was noted to have an asymptomatic atrial fibrillation w ith rapid ventricular response. She is already on Coreg. I gave her the dose of digoxin. Dr. Salas had given her some p.o. digoxin. Her heart rate is in the 70s. She is on anticoagulation. She is asymptomatic. Past Medical History: As stated above. Allergies: SHE IS ALLERGIC TO IODINE. Review of Systems: Negative. Social History: Negative. Family History: Positive for heart disease. Medications: At home are listed by Dr. Salas. Physical Examination: Vital Signs: Stable. Atrial fibrillation, rate of 80. Afebrile. HEENT: Examination that was done by Dr. Salas revealed normal HEENT. Chest: Revealed some rales. Cardiac: Revealed atrial fibrillation. Abdomen: Obese, but benign. Extremities: Revealed no clubbing, cyanosis, or edema. Diagnostic Data: Other than the COVID is fairly normal. Impression And Plan: Paroxysmal atrial fibrillation, controlled rate. I would add digoxin when she goes home, 0.125 p.o. daily. Continue her Coreg. Continue her anticoagulation. I will see her in t he office after she gets discharged. Other problems including hypertension, dyslipidemia, cerebrovas cular disease are stable. Follow up in the hospital on a regular basis. CHAR/MARK Voice ID: [id number] Report ID: [id number]
== END 2021-03-15 15:57 | disposition home or self-care (01) | DRG 177 ==
LOC: ER 13:21 → ERHOLD 20:05 → 4TH 03-13 15:35
PROVIDERS: ADMIT Internal Medicine; ATTEND Internal Medicine
DX: U07.1 COVID-19 (principal); J12.82 Pneumonia due to coronavirus disease 2019; J44.0 Chronic obstructive pulmonary disease with (acute) lower respiratory infection; I47.1 Supraventricular tachycardia; I50.32 Chronic diastolic (congestive) heart failure; R09.02 Hypoxemia; I25.10 Atherosclerotic heart disease of native coronary artery without angina pectoris; I11.0 Hypertensive heart disease with heart failure; E03.9 Hypothyroidism, unspecified; D64.9 Anemia, unspecified; I48.0 Paroxysmal atrial fibrillation; Z85.3 Personal history of malignant neoplasm of breast; Z86.73 Personal history of transient ischemic attack (TIA), and cerebral infarction without residual deficits; Z79.01 Long term (current) use of anticoagulants
CPT/HCPCS: 36415; 71045; 80048; 80053; 80076; 82607; 82728; 83036; 83540; 83605; 83690; 84145; 84466; 84484; 85025; 85379; 85610; 85730; 86140; 87040; 87070; 87081; 87804; 93005; 99284; J1160; J2920; J2930; J7030; J7799

== ENCOUNTER 2021-03-19 12:31 | Observation (INO) | payer OTHER ==
--- OUTSIDE RECORDS SUMMARY | 2021-03-19 12:40 | XMS REPORT | Continuity of Care Document ---
:1950 Author Organization [facility] t Address 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 00:00: Medical occlusion occlusion 00 Cent er Smoker Smoker Disease Active [facility] 1-05 [facility] - [facility] Medical 00 Center Paroxysmal Paroxysmal Disease Active [facility] atrial atrial 1-05 [facility] - fibrillati fibrillati 00:00: Me dical on on Center Essential Essential Disease Active [facility] hypertensi hypertensi 07-13 [facility] - on on 00:00: Medical 00 Center Dyslipidem Dyslipidem Disease Active [facility] ia ia 07-13 [facility] - 00:[facility]: Medical 00 Center 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, [...] 04-01 [facility] - Extracts 00:00: Medical 00 Center Iodine Propensi Active Methodi And ty to [...] St Reaction Available [facility] Cat Hair Adverse Active Info Not [facility] t Extract Reaction Available [facility] Family History Family Member Diagnosis Comments Start Date Stop Date Source Natural father Cancer [facility] Natural father Cancer [facility] Natural mother Heart disease [facility] Natural mother Hypertension [facility] Natural mother Heart disease [facility] Natural brother Heart disease [facility] Social History Social Habit Start Date Stop Date Quantity Comments Source History of tobacco Cigarette Smoker [facility] History SDOH [facility] - Alcohol Std Drinks Medica l Center History SDOH [facility] - Alcohol Binge Medical Krystian ter History SDOH [facility] - Alcohol Comment Medical C enter Alcohol intake 2020-08-05 2020-08-[address] [facility] - 00:00:00 00:00:00 non-drinker Medical Brian r (finding) Cigarettes smoked 2020-07-13 2020-07-[address] [facility] - current (pack per 00:00:00 00:00:00 Medical Center day) - Reported Cigarette 2020-07-13 2020-07-[address] [facility] - pack-years 00:00:00 00:00:00 [facility] Center Tobacco use and 2020-07-13 2020-07-[address] [facility] [address] [facility] - exposure 00:00:00 00:00:00 Medical Center History SDOH 2020-07-13 2020-07-[address] [facility] - Alcohol Frequency 00:00:00 00:00:00 [facility] Center Sex Assigned At [address] - 00:00:00 00:00:00 Medical Center Smoking Status Start Date Stop Date Source Unknown if ever smoked [facility] Current every day smoker 2017-10-02 00:00:00 Met [facility] Medications Ordered Filled Start Stop Current Ordering Indication Dosage Frequency Signature Comments Components Source Medication Medication Date Date Medication? Clinician (SIG) Name Name floresitamab 2020- No [id number] 1200mg 1,200 mg, [facility] -mayramab 03-11 Subcutaneo it y of (REGEN-COV 17:15: 15:57 us, ONCE, [place] (EUA)) 00 :00 1 dose, Medical injection 03/11/21 Bran ch 1,200 mg at 1215, Routine lisinopril- Yes 1{tbl} QD Take [address] hydroCHLORO 1-28 tablet by [facility] - thiazide 12:33: mouth Medical (PRINZIDE,Z 40 daily. [place] ESTORETIC) 20-12.5 mg per tablet lisinopril- Yes 1{tbl} QD Take [address] hydroCHLORO 1-28 tablet by [facility] - thiazide 12:33: mouth Medical (PRINZIDE,Z 40 daily. [place] ESTORETIC) 20-12.5 mg per tablet ascorbic Yes 500mg QD Take [address] acid, 1-28 mg by [facility] - vitamin C, 12:32: mouth Medica l (ascorbic 02 daily. [place] acid with gael hips) 500 MG tablet ascorbic Yes 500mg QD Take [address] acid, 1-28 mg by [facility] - vitamin C, 12:32: mouth Medica l (ascorbic 02 daily. Center acid with gael hips) 500 MG tablet multivitami Yes 1{tbl} QD Take [address] n per 1-28 tablet by [facility] - tablet 12:30: mouth Medical 35 daily. [place] aspirin 81 0 Yes 81mg QD Take [address] MG EC -28 by mouth [facility] - tablet 12:30: daily. Medical 35 [place] clopidogreL Yes 75mg QD Take [address] (PLAVIX) 75 -28 by mouth Luke s - mg tablet 12:30: daily. Medica l 35 [place] multivitami 0 Yes 1{tbl} QD Take [address] n per 1-28 tablet by [facility] - tablet 12:30: mouth Medical 35 daily. [place] aspirin 81 0 Yes 81mg QD Take [address] MG EC 1-28 by mouth [facility] - tablet 12:30: daily. Medical 35 Center clopidogreL Yes 75mg QD Take [address] (PLAVIX) 75 08-05 by mouth Luke s - mg tablet 12:30: daily. Medica l 35 Center atorvastati 2021- No 20mg QD Take [address] n (LIPITOR) 16 07-24 tablet (20 L ukes - 20 MG 00:00: 23:59 mg total) Medica l tablet 00 :00 by mouth Center daily. atorvastati 2021- No 20mg QD Take [address] n (LIPITOR) 07-24 tablet (20 L ukes - 20 MG 00:00: 23:59 mg total) Medica l tablet 00 :00 by mouth Center daily. simvastatin 2020- No 40mg QD Take [address] (ZOCOR) 40 07-23 by mouth Luke s - MG tablet 11:48: 00:00 daily. Medic al 29 :00 [place] simvastatin 2020- No 40mg QD Take [address] (ZOCOR) 40 07-23 by mouth Luke s - MG tablet 11:48: 00:00 daily. Medic al 29 :00 [place] metoprolol 2021- No 12.5mg Q.5D Take 0.[address] tartrate 07-23 tablets [facility] - (LOPRESSOR) 00:00: 23:59 (12.5 mg M edical 25 MG 00 :00 total) by Center tablet mouth 2 (two) times daily. furosemide 2021- No 20mg QD Take [address] (LASIX) 20 07-23 tablet (20 [facility]ia k[facility] - MG tablet 00:00: 23:59 mg total) Me dical 00 :00 by mouth Center daily. potassium 2021- No 10meq QD Take [address] chloride 07-23 tablet (10 Luke s - (KLOR-CON) 00:00: 23:59 mEq total) Medical 10 MEQ CR 00 :00 by mouth Center tablet daily. metoprolol 2021- No 12.5mg Q.5D Take 0.[address] tartrate 07-23 tablets [facility] - (LOPRESSOR) 00:00: 23:59 (12.5 mg M edical 25 MG 00 :00 total) by Center tablet mouth 2 (two) times daily. furosemide No 20mg QD Take [address] (LASIX) 20 07-23 tablet (20 Antonia kes - MG tablet [...] 10 days. Max Daily Amount: 200 mg traMADoL No 50mg Take [address] [...] al external 20 :29 Center liquid 4% chlorhexidi 2020- No 118mL [facility] ne 07-16 [facility] - (HIBICLENS) 08:37: 09:08 Medic al external 20 :29 Center liquid 4% metoprolol 2019-07 No 25mg Q.5D Take [address] tartrate 07-25 by mouth 2 Luke s - (LOPRESSOR) 00:00: 00:00 (two) Medi danny 25 MG 00 :00 times Center tablet daily. metoprolol 2019-07 No 25mg Q.5D Take [address] tartrate 1-17 01-15 by mouth 2 Luke s - (LOPRESSOR) 00:00: 00:00 (two) Medi danny 25 MG 00 :00 times Center tablet daily. levothyroxi 2019-07 Yes 25ug QD Take [address] ne 1-04 mcg by [facility]ukes - (SYNTHROID, 00:00: mouth Medic al LEVOTHROID) 00 daily. Center 25 MCG tablet levothyroxi 2019-07 Yes 25ug QD Take [address] ne 1-04 mcg by [facility]ukes - (SYNTHROID, 00:00: mouth Medic al LEVOTHROID) 00 daily. Center 25 MCG tablet fenofibrate 2019-07 Yes 145mg QD Take [address] (TRICOR) 0-15 mg by [facility] - 145 MG 00:00: mouth Medical tablet 00 daily. [place] fenofibrate 2019-07 Yes 145mg QD Take [address] (TRICOR) 0-15 mg by [facility]ukes - 145 MG 00:00: mouth Medical tablet 00 daily. [place] omeprazole 2019-07 No 40mg QD Take [address] (PriLOSEC) 008 by mouth Luke s - 40 MG 00:00: 00:00 daily. Medical capsule 00 :00 [place] omeprazole 2019-07 No 40mg QD Take [address] (PriLOSEC) 009 08 by mouth Luke s - 40 MG 00:00: 00:00 daily. Medical capsule 00 :00 [place] Tylenol # 3 Tylenol # 3 Yes [...] tablet 16:42: daily. Hospit a 15 l aspirin Yes 81mg QD Take 81 mg [...] once Hospi ta tablet 00 daily. l fenofibrate Yes 145mg QD Take 145 M ethodi (TRICOR) 7-[address] 145 MG 00:00: mouth once Hospi ta tablet 00 daily. l levothyroxi Yes 25ug QD Take 25 Met hodi ne 7-[address] (SYNTHROID, 00:00: mouth once Hospita LEVOTHROID) 00 daily. l 25 MCG tablet levothyroxi Yes 25ug QD Take 25 Met [...] ent Clinics Lisinopril- Lisinopril- Yes Migel not St Hydrochloro Hydrochloro Donald defined [facility] - [...] Immunizations Ordered Filled Immunization Date Status Comments [facility] Immunization Name Name SARS-COV-2 COVID-19 2020-10-23 Completed Unive rsity of PFIZER VACCINE 00:00:00 [facility] SARS-COV-2 COVID-19 2020-10-03 Completed Unive rsity of PFIZER VACCINE 00:00:00 [facility] Vital Signs Vital Name Observation Time Observation Value Comments Source Systolic blood 2021-03-11 16:53:00 109 mm[Hg] Univer sity of pressure [facility] Diastolic blood 2021-03-11 16:53:00 62 mm[Hg] Unive rsity of pressure [facility] Heart rate 2021-03-11 16:53:00 92 /min [facility] Body temperature 2021-03-11 16:53:00 36.67 Nallely Univ ersity [facility] Respiratory rate 2021-03-11 16:53:00 18 /min [facility] Oxygen saturation in 2021-03-11 16:53:00 94 /min [facility] Arterial blood by [facility] Pulse oximetry [facility] Body height 2021-03-11 15:58:[address] [facility] Body weight 2021-03-11 15:58:[address] [facility] BMI 2021-03-11 15:58:00 35.51 kg/m2 [facility] Systolic blood 2020-08-05 12:28:00 124 mm[Hg] [facility] Diastolic blood 2020-08-05 12:28:00 60 mm[Hg] S [facility] Heart rate 2020-08-05 12:28:00 85 /min [facility] Body temperature 2020-08-05 12:28:[address] [facility] Respiratory rate 2020-08-05 12:28:00 18 /min [facility] Body height 2020-08-05 12:28:[address] [facility] Body weight 2020-08-05 12:28:[address] [facility] BMI 2020-08-05 12:28:00 34.70 kg/m2 [facility] Oxygen saturation in 2020-08-05 12:28:00 96 /min room iar [facility] - Arterial blood by Medical Ce nter Pulse oximetry Procedures Procedure Date / Time Performing Clinician Source Performed PREPARE LEUKO-REDUCED RBC 2020-07-23 23:54:00 Sandy Freed [facility] POCT-GLUCOSE METER 2020-07-23 14:31:00 Vincent Ferrer [facility] BASIC METABOLIC PANEL (7) 2020-07-23 06:02:00 [facility] CBC W/PLT COUNT & AUTO 2020-07-23 06:02:00 Alexander [facility] MAGNESIUM 2020-07-23 06:02:00 [facility] PHOSPHORUS 2020-07-23 06:02:00 Alexander [facility] CBC W/PLT COUNT & AUTO 2020-07-23 06:02:00 [facility] POCT-GLUCOSE METER 2020-07-23 05:04:00 Vincent Ferrer [facility] ECG 12-LEAD 2020-07-23 01:57:40 Unknown, Hl7 Doctor [facility] ECG 12-LEAD 2020-07-23 01:57:40 Unknown, Hl7 Doctor [facility] XR CHEST 1 VIEW PORTABLE / 2020-07-23 00:49:[address] [facility] BEDSIDE [facility] POCT-GLUCOSE METER 2020-07-23 00:39:00 Carissa [facility] POCT-BLOOD GASES, VENOUS 2020-07-23 00:34:00 Carissa [facility] POCT-SODIUM 2020-07-23 00:34:00 Carissa, [facility] POCT-POTASSIUM 2020-07-23 00:34:00 Carissa, [facility] POCT-HEMOGLOBIN 2020-07-23 00:34:00 Carissa, [facility] POCT-HEMATOCRIT 2020-07-23 00:34:00 Carissa [facility] POCT-CALCIUM IONIZED 2020-07-23 00:34:00 Carissa [facility] POCT-GLUCOSE 2020-07-23 00:34:00 Carissa [facility] TRANSFUSE LEUKO-REDUCED 2020-07-22 20:20:19 [facility] RED BLOOD CELLS [facility] TRANSFUSE LEUKO-REDUCED 2020-07-22 17:48:00 Sandy Freed [facility] RED BLOOD CELLS [facility] BLOOD GAS, ARTERIAL 2020-07-22 14:58:00 [facility] W/[facility]T [facility] & AUTO 2020-07-22 14:57:00 [facility] BASIC METABOLIC PANEL (7) 2020-07-22 14:57:00 Sandy Freed [facility] MAGNESIUM 2020-07-22 14:57:00 Sandy Freed [facility] PHOSPHORUS 2020-07-22 14:57:00 Sandy Freed [facility] LACTIC ACID, ARTERIAL 2020-07-22 14:57:00 Sandy Freed [facility] CBC W/PLT COUNT & AUTO 2020-07-22 14:57:00 [facility] CHEST 1 VIEW PORTABLE / 2020-07-22 13:18:00 [facility] CALCIUM, IONIZED 2020-07-22 11:14:00 [facility] - STAT LAB 2020-07-22 11:13:00 Paulina [facility] POTASSIUM-STAT LAB 2020-07-22 11:13:00 Alexander [facility] GLUCOSE-STAT LAB 2020-07-22 11:13:00 Paulina [facility] TISSUE EXAM 2020-07-22 09:13:00 [facility] ENDARTERECTOMY,CAROTID 2020-07-22 07:29:[facility] PO[facility]SE METER 2020-07-22 05:08:00 [facility] BASIC METABOLIC PANEL (7) 2020-07-22 05:00:00 [facility] CBC W/PLT COUNT & AUTO 2020-07-22 05:00:00 Mita Now[facility] MAGNESIUM 2020-07-22 05:00:00 Paulina [facility] PHOSPHORUS 2020-07-22 05:00:00 Alexander [facility] CBC W/PLT COUNT & AUTO 2020-07-22 05:00:00 Paulina [facility] POCT-GLUCOSE METER 2020-07-21 20:53:00 [facility] POCT-GLUCOSE METER 2020-07-21 16:28:00 [facility] ECG 12-LEAD 2020-07-21 16:27:56 Unknown, Hl7 [facility] ECG 12-LEAD 2020-07-21 16:27:56 Unknown, Hl7 [facility] SARS-COV2/RT-PCR ([facility] & 2020-07-21 15:18:[address] [facility] REF [facility] PROTHROMBIN TIME/INR 2020-07-21 15:18:00 [facility] APTT 2020-07-21 15:18:00 [facility] R & L CATH (+/- SATS & 2020-07-21 08:41:00 She, Samar [facility] BASIC METABOLIC PANEL (7) 2020-07-21 03:24:00 Miriam Galladroscar [facility] CBC W/PLT COUNT & AUTO 2020-07-21 03:24:00 Tiesha [facility] MAGNESIUM 2020-07-21 03:24:00 [facility] 2020-07-21 03:24:00 Beram [facility] CBC W/PLT COUNT & AUTO 2020-07-21 03:24:00 Ber [facility] POCT-GLUCOSE METER 2020-07-20 18:21:00 Carissa [facility] ECG 12-LEAD 2020-07-20 17:37:05 Unknown, Hl7 [facility] POCT-GLUCOSE METER 2020-07-20 11:46:00 Carissa [facility] POCT-GLUCOSE METER 2020-07-20 06:54:00 Carissa [facility] BASIC METABOLIC PANEL (7) 2020-07-20 03:32:00 Paulina Miriamscar [facility] CBC W/PLT COUNT & AUTO 2020-07-20 03:32:00 Liborio Motley [facility] MAGNESIUM 2020-07-20 03:32:00 [facility] PHOSPHORUS 2020-07-20 03:32:00 Ber [facility] CBC W/PLT COUNT & AUTO 2020-07-20 03:32:00 [facility] POCT-GLUCOSE METER 2020-07-19 23:30:00 Carissa [facility] LACTIC ACID, ARTERIAL 2020-07-19 17:30:00 Tiesha [facility] BLOOD GAS, ARTERIAL 2020-07-19 17:30:00 Famiriamlan, [facility] 2D ECHO W/ DOPPLER 2020-07-19 17:18:13 Hayden Lewis [facility] (CW/PW/COLOR) [facility] URINALYSIS W/ REFLEX URINE 2020-07-19 16:38:[address] [facility] COMPREHENSIVE METABOLIC 2020-07-19 15:07:00 Tiesha [facility] MAGNESIUM 2020-07-19 15:07:00 Tiesha [facility] PHOSPHORUS 2020-07-19 15:07:00 Tiesha [facility] CBC W/PLT COUNT & AUTO 2020-07-19 15:07:00 Tiesha [facility] PROTHROMBIN TIME/INR 2020-07-19 15:07:00 Tiesha [facility] PT/APTT 2020-07-19 15:07:00 Tiesha [facility] TSH/FREE T4 IF INDICATED 2020-07-19 15:07:00 Tiesha [facility] LACTIC ACID, ARTERIAL 2020-07-19 15:07:00 Tiesha [facility] CORTISOL 2020-07-19 15:07:00 Tiesha [facility] CBC W/PLT COUNT & AUTO 2020-07-19 15:07:00 Tiesha [facility] XR CHEST 1 VIEW PORTABLE / 2020-07-19 14:38:00 Meggan Musa [facility] BLOOD GAS, ARTERIAL 2020-07-19 14:30:00 Meggan Musa [facility] SODIUM NA-STAT LAB 2020-07-19 14:30:00 Meggan Musa [facility] POTASSIUM-STAT LAB 2020-07-19 14:30:00 Meggan Musa [facility] CALCIUM, IONIZED 2020-07-19 14:30:00 Valluri, [facility] GLUCOSE-STAT LAB 2020-07-19 14:30:00 [facility] HGB/HCT (H&H) - STAT LAB 2020-07-19 14:30:00 [facility] PLATELET COUNT 2020-07-19 14:30:00 [facility] COLOR-FLOW MAPPING 2020-07-19 13:17:38 Alexander [facility] CONT WAVE PULSED DOPPLER 2020-07-19 13:17:38 [facility] TRANSESOPHAGEAL ECHO 2020-07-19 13:00:53 [facility] ABORH, MANUAL 2020-07-19 08:49:00 Beckie Motley [facility] CARDIAC CATH REPORT - SCAN 2020-07-19 00:00:00 Provider, [facility] VASCULAR DIAGRAM -SCAN 2020-07-19 00:00:00 Provider, [facility] TYPE AND SCREEN, AUTOMATED 2020-07-16 09:12:00 Vincent Ferrer [facility] ECG 12-LEAD 2020-07-16 08:47:40 Unknown, Hl7 Doctor [facility] ECG 12-LEAD 2020-07-16 08:47:40 Unknown, Hl7 [facility] SARS-COV2/RT-PCR ([facility] & 2020-07-16 08:39:00 Vincent Ferrer [facility] - REF LABS) [facility] Plan of Care Planned Activity Planned Date Details Comments Source Future Scheduled 2021-03-[address] [facility] Test 00:00:00 (Season Ended) [code = [facility] INFLUENZA VACCINE (Season Ended)] Future Scheduled 2021-03-[address] [facility] - Test 00:00:00 (Season Ended) [code = [facility] INFLUENZA VACCINE (Season Ended)] Future Scheduled 2020-07-09 Medicare IPPE (WELCOME [facility] Test 00:00:00 TO MEDICARE) [code = Medical Center Medicare IPPE (WELCOME TO MEDICARE)] Future Scheduled 2020-07-09 Medicare IPPE (WELCOME [facility] Test 00:00:00 TO MEDICARE) [code = Medical Center Medicare IPPE (WELCOME TO MEDICARE)] Future Scheduled 2014 PNEUMOCOCCAL 65+ Y[facility] - Test 00:00:00 (1 of 1 - Medical Center [id number] [id number]) [code = PNEUMOCOCCAL 65+ YRS (1 of 1 - [id number] PCV13)] Future Scheduled 2014 PNEUMOCOCCAL 65+ Y[facility] - Test 00:00:00 (1 of 1 - Medical Center [id number] PCV13) [code = PNEUMOCOCCAL 65+ YRS (1 of 1 - [id number] PCV13)] Future Scheduled 1999 SHINGLES VACCINES ([address] [facility] - Test 00:00:00 of 2) [code = SHINGLES Medic al Center VACCINES (1 of 2)] Future Scheduled 1999 SHINGLES VACCINES ([address] [facility] - Test 00:00:00 of 2) [code = SHINGLES Medic al Center VACCINES (1 of 2)] Future Scheduled 1968-01-28 DTAP/TDAP/TD VACCINES [facility] Test 00:00:00 (1 - Tdap) [code = Medical C enter DTAP/TDAP/TD VACCINES (1 - Tdap)] Future Scheduled 1968-01-28 DTAP/TDAP/TD VACCINES [facility] Test 00:00:00 (1 - Tdap) [code = Medical C enter DTAP/TDAP/TD VACCINES (1 - Tdap)] Future Scheduled 1967 HEPATITIS C SCREENING [facility] Test 00:00:00 [code = HEPATITIS C Medical Center SCREENING] Future Scheduled 1967 HEPATITIS C [facility]CRE[facility]ING [facility] Test 00:00:00 [code = HEPATITIS C Medical Center SCREENING] Future Scheduled [address] [facility] Test 00:00:00 malignant neoplasm of Medica l Center breast (procedure) [code = 647169745] Future Scheduled [address] [facility] - Test 00:00:00 malignant neoplasm of Medica l Center colon (procedure) [code = 698896727] Future Scheduled [address] [facility] - Test 00:00:00 malignant neoplasm of Medica l Center breast (procedure) [code = 022726268] Future Scheduled [address] [facility] - Test 00:00:00 malignant neoplasm of Medica l Center colon (procedure) [code = 009427134] Future Scheduled 65+ [facility]OCOCCAL [facility] Test VACCINE (1 of 2 - PPSV23) [code = 65+ PNEUMOCOCCAL VACCINE (1 of 2 - PPSV23)] Future Scheduled COVID-19 VACCINE (1) [facility] [code = COVID-19 VACCINE (1)] Future Scheduled [facility] [code = 879184250] Future Scheduled 65+ [facility]OCOCCAL [facility] Test VACCINE (1 of 2 - PPSV23) [code = 65+ PNEUMOCOCCAL VACCINE (1 of 2 - PPSV23)] Future Scheduled COVID-19 VACCINE (1) [facility] [code = COVID-19 VACCINE (1)] Future Scheduled [facility] (procedure) [code = 138260757] Future Scheduled [facility] S[facility]EN[facility] [code = BREAST CANCER SCREENING] Future Scheduled [facility] [code = COLONOSCOPY SCREENING] Future Scheduled SHINGLES VACCINES (#1) [facility] [code = SHINGLES VACCINES (#1)] Future Scheduled INFLUENZA [facility]ACCINE [facility] Test [code = INFLUENZA VACCINE] Future Scheduled BREAST CANCER [facility] Test SCREENING [code = BREAST CANCER [...] 2021-03-11 2021-03-11 Nurse Therapy, Adc Covid Infusion [facility] [id number] [facility] 09:26:25 10:26:25 Visit Felipe Smith [id number] [facility] [place] [id number] [place] [facility] [id number] [facility] [address] 2020-08-05 2020-08-05 [facility] [id number] 12:24:29 12:39:[address] [facility] 2020-08-05 2020-08-05 Office [facility] [id number] 12:24:29 12:39:[address] [facility] 2020-07-19 2020-07-23 [facility] [id number] 08:02:00 18:04:00 Encounter [facility] 2020-07-19 2020-07-23 [facility] [id number] 08:02:00 18:04:00 Encounter [facility] 2020-07-22 2020-07-22 Anesthesia [facility] [id number] [facility] 07:22:00 10:54:00 Event Noel Novak [facility] 2020-07-22 2020-07-22 Anesthesia [facility] [id number] [facility] 07:22:00 10:54:00 Event Noel Novak [facility] 2020-07-22 2020-07-22 Surgery [facility] [id number] 07:30:00 10:45:00 [facility] 2020-07-22 2020-07-22 Surgery [facility] [id number] 07:30:00 10:45:00 [facility] 2020-07-21 2020-07-21 Surgery [facility], [facility] [id number] [facility] 09[facility] 11:55:00 [facility] 2020-07-21 2020-07-21 Surgery She, [facility] [id number] 09:50:00 11:55:00 Mita Winter [facility] 2020-07-21 2020-07-21 Travel [facility] [id number] [facility] 00:[facility] 00:[facility]:00 [facility] 2020-07-21 2020-07-21 Travel [facility] [id number] [facility] 00:[facility] 00:[facility]:00 [facility] 2020-07-19 2020-07-19 Surgery Carissa, [facility] [id number] 10:30:00 13:45:00 [facility] 2020-07-19 2020-07-19 Surgery Carissa, [facility] [id number] 10:30:00 13:45:00 [facility] 2020-07-19 2020-07-19 Anesthesia IsabellaEzequiel jaramillo [facility] [id number] [facility] 09:37:00 09:37:00 Event Selene Arellano [facility] 2020-07-19 2020-07-19 Anesthesia Ezequiel Mason [facility] [id number] [facility] 09:37:00 09:37:00 Event Adan Selene [facility] 2020-07-16 2020-07-16 [facility] [id number] 08:21:42 08:36:42 Visit [facility] 2020-07-16 2020-07-16 [facility] [id number] [facility] 08:21[facility]42 08:36:42 [facility] 2020-07-16 Orders [facility] [id number] 00:00:00 00:00:00 Only [facility] 2020-07-16 2020-07-16 Travel [facility] [id number] [facility] 00:[facility] 00:00:00 [facility] 2020-07-16 2020-07-16 Orders [facility] [id number] 00:00:00 00:00:00 Only [facility] 2020-07-16 2020-07-16 Travel [facility] [id number] [facility] 00:[facility] 00:00:00 [facility] 2020-07-14 2020-07-14 [facility] [id number] 10:12:39 23:59:00 Encounter [facility] 2020-07-14 2020-07-14 [facility] [id number] 10:12:39 23:59:00 Encounter [facility] 2020-07-13 2020-07-13 Office Carissa, [facility] [id number] 14:28:40 14:58:[address] [facility] 2020-07-13 2020-07-13 Office Carissa, [facility] [id number] 14:28:40 14:58:[address] [facility] 2020-07-13 2020-07-13 Travel [facility] [id number] [facility] 00:[facility]00 00:00:00 [facility] 2020-07-13 2020-07-13 Travel [facility] [id number] [facility] 00:[facility] 00:00:00 [facility] 2018-04-01 2018-04-01 [facility] [id number] 14:00:00 14:00:00 [facility] ent Clinics 2018-03-04 2018-03-04 [facility] [id number] 11:00:00 11:00:00 [facility] ent [facility] Results Test Description Test Time Test Comments Results Result Sourc e Comments VASCULAR DIAGRAM 2020-08-03 Ordered by an HEIDY [facility] -SCAN 10:50:52 unspecified - Medical provider. [place] CARDIAC CATH 2020-08-03 Ordered by an HEIDY Loves REPORT - SCAN 10:50:51 unspecified - Medical provider. [place] Tissue Exam 2020-07-30 18:09:00 Test Item Value Reference Range Interpretation Comme nts Case Report (test code = 104) Surgical Pathology Report Case: [id number] Authorizing Provider: Vincent Ferrer MD Collected: 07/22/2020 09:13 AM Ordering Location: [facility] Received: 07/22/2020 10:56 AM PERIOPERATIVE SERVICES Pathologist: Timur Ray MD Specimen: Plaque, left carotid plaque DIAGNOSIS (test code = 3220) o5fnlSSsTHHmy1zjIEXakWRvFsDnIfAtAgYgOb pc dWMxIHtccnRmMVxlcGljOTIwMFxhbnNpXHNwbHRw Q3CldundRVezHX1yPP7bvPyhpMGsjTZfFPKjDcHq e1juo341eMCxn1haPYCJwnaxrIw5mBkwF47fr3D9 ZtgjK80guULjVArlxKOwwtfndpWoAGJKYXIZMAmg REASFTDDESEPBSzPXYDVWuWQUqSNEqSMHQ8HTOjj dPGwIZREQSNLLkvAPQHOKSLJN3AOFHJTJ4XUDbPJ XXQLZGPzLDVykw60SYI1SiFwe8S0CMV5SNHkDDRy p8xoNSTmfYOwXfGcHtKuKvTtKbdwqMBjDFQpKqIs f3oxs379oIHru4mqZYOhCmT3nWTaTUEljBCwW355 EGGtXVgxi9fgf9HrEWFquGGgw7Z2EQVPiervzRh8 vBsjK73en0P7LmbvD1kbHUHlGIHzC5JcJB4wZSJb Bfk5DFE9LYY7LMAxFBIoM9MrXS8lVMSxyHOvTWl0 b0pvxQmpNRKsXKT6r2yqGYwlqdLlII9icy9zqXe7 p2axheCyCJKgUBHryBSKHHDtX0BbbKobFf1kdMu5 dXerZwssNUD4Nyo3FR5bdo00pno2nFzhNIIeovrx EhU3ZVqcPGHvyrtlZHt6GBwhYKZfhQM9TJBwfKDb T5NmKCNcRE6kghl0DIA8VTesHGOyYjH8QBRgsDRf SZLxfFilXEjuc177FIS0HmGdCV6xL4Yjj0N6lL9e hFAkKTRivJCgRcZzPECugy0onBKjPWzhd6UhTGQ7 ltA0zQRrsWWsIZKyKlJ9GOakIQ4uob52JUFxQGF7 dz6mzKKjgXkhdmMxdIFlQYliJ8TzKYFcz612NTUs Z7MwPSElf1I2cqAwMqNwMUDegKM7nlK5FCRyIO6g oiado8njYCtcNLueSKEqmuZ6fzZ3BVHgyOQdA3Nm tG0kWOIxWG8nexwqn3qsNDM3VFoiYZZvIQD9FaYz ORYty1Cjyrq6BwAxd1YfaJSqLZjoY95ke625XXNy pbVnR1jyjRZtoejilNFepwavEJenvzI3MFQeBKft lurmRBSwJXpqI6gfKrQrTFJvbVrgIIhir8GwAZPy MOGaLlWjwRHcBAVcHyp6JGDydRBrSCMuMoVsU3xr irwsBqKRSWAwm0xmT0nwoTTUaVOoI1BdVOvvvdFe LCfsPGyrVXLpDAZ7BH84WzclMZEcmb87 CPT Code(s) (test code = 3357) i0czsVSsBQLihHG6XxKqBUKjv9wcw0MtkRSi cGFy ZVhhgTFgrcWhhv97xGQ9jH11DZ5rKRLqFeF6CDMv joX2Ysl4QFXeQGVyqMZeO302d9fwr9amqmKcxAF6 oPljQFNpJDYfAVwjHBZkGmYiKUytPWX0BLj4HrSn XHBhcn0= CLINICAL HISTORY (test code = 3356) v7useSDxWXNmuBN0ViXgHZSro6zge9S sdHBncGFy YPqvtODvsdDfng42kTD2iB81HY6yPIKfPlO9PLJt tlY5Kyi6INOrSTVfeKLvM672m4vmd3etclNhtDJ2 fVxwYXJkXHBsYWluXGZzMjAgTGVmdCBjYXJvdGlk QIY7LW9gf8exDTHwqy5= SPECIMEN SOURCE (test code = 3377) h0nmdDIjTWQydTH5WbWbFUFow6ons2Hj dHBncGFy FOjidLOxtvEbke19lOV3gY63VN2iBYJdNsA2XPZl qdB8Qnu8YTQzOHMymCFhC905q2tgn8qatyMvoEE9 fVxwYXJkXHBsYWluXGZzMjAgUGxhcXVlXHBhcn0= GROSS DESCRIPTION (test code = 3366) a1pxwZUcPTTyfLLuTdGzAZTxEZWkm6 lcZGVmbGFu [file] kbpkSEYeYPcUAKhQZ4VONZelFRW3 MICROSCOPIC DESCRIPTION (test code = k8fgwQVuGXIvzRS7JjLlJUNfm9afz2 BsdHBncGFy 3371) FCeqkVIorjWeib88nMI2zU68UX4mQKTsHpB6ZIBb xiY1Jyk3KXGgAEFcrCPeX960m9yon5oppqWkvVF9 hTitMAAmDYIoGIqoYYYkYyUuIOXyMb7cvPCoRLPb cn0= [facility] [id number] 18:09:00 Test Item Value Reference Range Interpretation Comments Case Report (test code Surgical Pathology = 104) Report Case: [id number] Authorizing Provider: Vincent Ferrer MD Collected: 07/22/2020 09:13 AM Ordering Location: [facility] Received: 07/22/2020 10:56 AM PERIOPERATIVE SERVICES Pathologist: Timur Ray MD Specimen: Plaque, left carotid plaque DIAGNOSIS (test code = h0zzjYKeQAEfi8vsDJPcbMG 3220) uZzEwMzNcZnRuYmpcdWMxIH tccnRmMVxlcGljOTIwMFxhb aCaBKDwlWUuX4HkmprjROgo PW2yVR7piYktzEJjlWUcGAB lRgPpr8xee156gEXjp9qiME QAgeejjZe2tRdyU58ih0W9S dboI16evHPvDGgxvSGephjg czIwIEFSVEVSWSwgTEVGVCB DQVJPVElELCBFTkRBUlRFUk LNXE8AASqhaWUjQXTSZIIPL iuRSQBJGCTQU8ZXWNTVL8BP RxYRIKZBEUFzAVObxl65NUY 7GlZxe1I7PUD8FJHbOGCwp8 lcZGVmbGFuZzEwMzNcZnRuY xjeiDNaYCIjOaLqw3ldt648 kCJul0sdIHSkQtS4xENeTVF vdQLuB540MTRmSUrsd2pwz7 TcMDLwdAMxa3K0XZTQshwxy Ks6gDqoD54pm6M8EmdgL3fz ZQLkYOBnV3HfCR7rKYRxWow 2OBF7IYX5CUWrRJDdM5MkDO 7nEGCorYZnWNf7j5hyiRnlH SJqHKX0l1oaOWxnfpChCL6v nq5ocFz6m4ekvyNuPKAjBDU pvWFYNYJdI4ArgKogBg1peI k7wIpyDwivLTN1Xzo7NV0pb x43xmj1oFggIEKspgixKaL0 OPsrPFSzljjxHKc5OUvaKME cpJQ0AOLbzBTxH3WbIQZnMK 8qwqa5ARL3RRupSAYiTkW4B CRfuPLlBJHzvXxrYPolo986 ZQC7RiQcCL9hW3Say8D9yY2 maXRcZGVmdGFiNzIwXGZvcm 2uiJExLFoiz9AtEOO2uyW0d RIajSEdERPoPrQ8CUfqMU6z mn21AKCwWJV1jo4hoRRgfGs monRosPHaEFueB4WqTIVqh4 11NYDgA8MpJYPfm1P9slUvR jNgAYWfqTP5acU9HBEiWM6e mgrsv1yrPTuyHGhlMNSfzgP 1prO6CFAqiMVoY5WxbA7bRP XvKZ6jkuquw1beIAY6SCksU VYoUCQ5GhFeBNTkj6Icvuk0 PiRru5YufDKdAMjjD31ao11 2KZIaiwMuN2upaTXwcvwxqD TffyliGXinlrJ4CPXvVFlxt syrIMRsUBbjG4ooJoQyFWOy pPxdWMwzh4ZfOVNpBPFxGhF jzCNlJDMoDdi7YZJabWUvOQ QpAyCbG0xmajunPvVPYWTsn 1loC8ixoUFRhDVvI3UzTAmn ceDjSEulOOgqAMAuHOQ4WD0 4LrepTJHaox03 CPT Code(s) (test code a6weeCLqUTQbnAD2TsAuKLD = 3357) cn3whz7WfaRQhiYJxZOgamW QjspFhhy54bNK5eN03HS8cX TYoSjH9YVEsdeR3Giz0ZBMc SGXhnNHjL046p9cnh9yqziB jwXO1kDfpWYYaNSSzOMqoDC HqUpPgVYvcJQZ9OGz9PzWcG HBhcn0= CLINICAL HISTORY (test d3qbtVCsITGleIC6GeGpZIW code = 3356) ux7rln1RozNAtsYQzTGnyqE RoahRnba00dJM5aF66TG9jE NCxUzF7IYNuooE6Yst2GOVh ZZGimTVbG766p9cox9fdpzN diYS0jMwnNQZsBXBpTCnxTU ZzMjAgTGVmdCBjYXJvdGlkI NC0PO6er9wyVPNztg8= SPECIMEN SOURCE (test p1hxrRJuMDZteHL9UtAcILU code = 3377) th8lwc0OfeHUsfPYuPFjpbA GplbKpcy89oMT3dP24ET4dQ RTwCjE9KQQdtaM9Zcv6CKBg AAVdaLHtD502j1nmw1aceyW mmJQ9dJkuHMRoJMGjHWeyOS ZzMjAgUGxhcXVlXHBhcn0= GROSS DESCRIPTION l2wfgWVsVOLxsTMkFxQtMRT (test code = 3366) dXSYwr0azKFLjgSWbLpIlQr NcZnRuYmpcdWMxXGRlZmYwe 1jrx394iITxa2cmCEWvYvC4 yHPyPWRusFUwW148g3yvc4r qqmQmgRV2WBGdJLC0DDtoub CoooC1TDepcWEgSiY3ISmpl hAtCWugkiZlwcLxCvx3KAZh T193FXG6jIsoe4zgHME5ORY rUVOcBmZwTv4buBGwW854XA ZeFWYZVFKjoQh4RKUbrrIdz eFecPVVn140C724g2paLXOg jbZmxQmMexmkt6ibZ352MXB hcGVydzEyMjQwXHBhcGVyaD E5NOHzRI8hawxxQiMrFZ3df wfgJpQkZY0yrhg8GgPgLL5b cmdiNzIwXGhlYWRlcnkwXGZ gg0YruqaaNR1tU2Ztu5I7yX 9maXRcZGVmdGFiNzIwXGZvc x6teULzIPlht0EyGQS8jcQ5 dBJaiPCnFIObAH64Jlpvh3G fMigvDID8HESigwFwe3Vku4 wrSqOclrHsB2gcP3UrXOCfK XOgLJTnWvBmnpKwz6Lod5Tg eOHzhTi5r6miMENgNDAchSq os8alBDI5UJBrH8R7qGSei8 ssNYaeALCumMD4pybjLNefG QYqtmG0cpbnDOlxQGXqpEJ8 gboeSRrcIVBcZnS5qsasHDu vVNArRZE4KQkbd625SKM0TC xzYmtwYWdlXHBnbmNvbnRcc GduZGVjXHBsYWluXHBsYWlu XGYwXGZzMjRccWxccGxhaW5 yOmAoByTcLNpzFB9rZTBoH8 qemJEsQOBjAUNxA1nsYvBtk T1uaLaeCHfyxjAnXWCpH3Eq cpFrRDnsBUHeir4spTpgCMy hYmVsZWQgdGhlIHBhdGllbn QubtDcQU8uZRMuW0Nsy6Hhq 24gbnVtYmVyIGFuZCAibGVm fVXyJLRiaAhpRWZsARR0MNR ulBFdHDZgDiPnK62pjT8ddG HoA6RjIYG1QJXuEKJnrRWqx gJwpDOfLZLgwnH5DT7ptPJh oY96BGV8VsLxDXSnwLvvR1S rj9UvIt1eQRtnrCKzDXwulD ZpZWQgcGxhcXVlLiAgUmVwc ePkXE84ERNioxAqv0CeeDye wlIkCXGlUYI9Wi8yuAGbROL kquFVEBPcq1swf5bdnfivND NbQNwgpTBpH9D9vT8aMkpiN DQzjVLmKXBinLUuIOFxZ6Yg yWxqufynIFHdOCaDWMjZD6J QKVxwYXJ9 MICROSCOPIC j1rnhNUwWFKdyBJ0OlNeBBA DESCRIPTION (test code ub1qti0YggTEtjPAlVYadwU = 3371) KzynReyb63tMX3tB26WE3mZ XSkSmF9CFBchzZ8Biw1RNMy BWLbeCWdA945t8hjy4kkojN jpKQ0kGquSCRtFFPnDCtgHY NmAaRvKIMpLb1ysTUpSZQkz n0= [facility] [id number] 18:09:00Surgical Pathology Report Case: [id number] Authorizing Provider: Vincent Ferrer MD Collected: 07/22/2020 09:13 AM Ordering Location: [facility] Received: 07/22/2020 10:56 AM PERIOPERATIVE SERVICES Pathologist: Timur Ray MD Specimen: Plaque, left carotid plaque ARTERY, LEFT CAROTID, ENDARTERECTOMY:CALCIFIC ATHEROSCLEROTIC PLAQUE Signing Pathologist Direct Phone Line: [phone] signed by Timur Ray MD on 07/30/2020 at 6:09 [id number]; [id number] carotid stenosisPlaqueReceived in formalin labeled the patient's name, accession number and "left carotid plaque" is a 3.5 cm in length by 0.5 cm in diameter dillon-yellow tubular piece of focally calcified plaque. [employer] sections are submitted in A1 following decalcification.ISABELLA Holguin, HT (ASC P)PerformedPrepare Leuko-Red [id number] 23:54:00 Test Item Value Reference Range Interpretation Comments CROSSMATCH (test code = 2264) COMPATIBLE Unit ABO (test code = O Pos [id number]) UNIT NUMBER (test code = [id number] 934-0) Status (test code = 8315498) TX_TIMEINCHART Blood Bank Product (test code RED BLOOD CELLS = 2263) PRODUCT CODE (test code = F4823A27 933-2) [facility] [id number] 23:54:00 Test Item Value Reference Range Interpretation Comments CROSSMATCH (test code = 2264) COMPATIBLE Unit ABO (test code = O Pos 0079134) UNIT NUMBER (test code = [id number] 934-0) Status (test code = 5539724) TX_TIMEINCHART Blood Bank Product (test code RED BLOOD CELLS = 2263) PRODUCT CODE (test code = P3135P46 933-2) [facility] 12 [id number] 17:54:17Interface, External Ris In - 07/23/2020 5:54 PM CSTVentricular Rate 107 BPMAtrial Rate 107 BPMP-R Interval 146 msQRS Duration 86 msQ-T Interval 328 msQTC Calculation(Bachava) 437 msP [place] 66 degreesR [place] 23 degreesT [place] 34 degreesSinus tachycardiaOtherwise normal ECGWhen compared with ECG of 21-JUL-2020 16:27,T wave amplitude has decreased in Lateral leadsQT has shortenedConfirmed by MD SHIVANI, MATTY ([id number]) on 07/23/2020 5:54:13 [facility]-Glucose meter 2020-07-23 14:42:00 Test Item Value Reference Range Interpretation Comments POC-Glucose Meter (test 131 mg/dL 70-110 H : TE STED AT [facility] code = 1538) [address] [facility], 770 30: Cashier Ticket Selling/Techni tigre ID = [id number] for Qasim Domingomich y Lab Interpretation (test Abnormal code = 84182-8) [facility]-Glucose [id number] 14:42:00 Test Item Value Reference Range Interpretation Comments POC-Glucose Meter (test 131 mg/dL 70-110 H : TE STED AT [facility] code = 1538) [address] [facility], 770 30: Cashier Ticket Selling/Techni tigre ID = [id number] for Qasim Marcell y Lab Interpretation (test Abnormal code = 33861-7) [facility]-GLUCOSE [id number] 14:42:00 Test Item Value Reference Range Interpretation Comments POC-GLUCOSE METER 131 mg/dL 70-110 H : TESTED A T [facility] 6720 (BEAKER) (test code = FLORIDALMA Schmitt [facility], 1538) [address]: Cashier Ticket Selling/Techni tigre ID = [id number] for Leslie Bowman Basic Metabolic [id number] 07:11:00 Test Item Value Reference Range Interpretation Comments Sodium (test code = 142 meq/L 920-748 6391-2) Potassium (test code = 3.7 meq/L 3.5-5.1 2823-3) Chloride (test code = 104 meq/L 98-107 5-0) CO2 (test code = 31 meq/L 22-29 H 2027-9) BUN (test code = 18 mg/dL 7-21 3094-0) Creatinine (test code 0.74 mg/dL 0.57-1.25 = 2160-0) Glucose (test code = 116 mg/dL 70-105 H 2345-7) Calcium (test code = 8.2 mg/dL 8.4-10.2 L 84579-6) EGFR (test code = 77 mL/min/1.73 [place] [address]-6) NOT ACCURATE CREATININE CLEARANCE IN PREDICTING GLOMERULAR FILTRATION RATE . ESTIMATED GFR I S NOT APPLICABLE FOR DIALYSIS PATIENTS. STAR (test code = STAR) Cashier Ticket Selling ID - EDASI Lab Interpretation Abnormal (test code = 78143-8) [facility] 07:11:00 Test Item Value Reference Range Interpretation Comments Magnesium (test code = 1.9 mg/dL 1.6-2.6 69762-4) STAR (test code = STAR) Cashier Ticket Selling ID - EDASI Lab Interpretation (test Normal code = 83973-6) [facility] 07:11:00 Test Item Value Reference Range Interpretation Comments Phosphorus (test code = 2.3 mg/dL 2.3-4.7 2777-1) STAR (test code = STAR) Cashier Ticket Selling ID - EDASI Lab Interpretation (test Normal code = 36863-6) [facility]abolic [id number] 07:11:00 Test Item Value Reference Range Interpretation Comments Sodium (test code = 142 meq/L 777-149 1887-2) Potassium (test code = 3.7 meq/L 3.5-5.1 2823-3) Chloride (test code = 104 meq/L 98-107 2075-0) CO2 (test code = 31 meq/L 22-29 H 2027-9) BUN (test code = 18 mg/dL 7-21 3094-0) Creatinine (test code 0.74 mg/dL 0.57-1.25 = 2160-0) Glucose (test code = 116 mg/dL 70-105 H 2345-7) Calcium (test code = 8.2 mg/dL 8.4-10.2 L 81953-5) EGFR (test code = 77 mL/min/1.[place] [address]-8) NOT ACCURATE CREATININE CLEARANCE IN PREDICTING GLOMERULAR FILTRATION RATE . ESTIMATED GFR I S NOT APPLICABLE FOR DIALYSIS PATIENTS. STAR (test code = STAR) Cashier Ticket Selling ID - EDASI Lab Interpretation Abnormal (test code = 28372-4) [facility] 07:11:00 Test Item Value Reference Range Interpretation Comments Magnesium (test code = 1.9 mg/dL 1.6-2.6 89572-6) STAR (test code = STAR) Cashier Ticket Selling ID - EDASI Lab Interpretation (test Normal code = 36134-0) [facility] 07:11:00 Test Item Value Reference Range Interpretation Comments Phosphorus (test code = 2.3 mg/dL 2.3-4.7 2777-1) STAR (test code = STAR) Cashier Ticket Selling ID - EDASI Lab Interpretation (test Normal code = 55678-8) [facility] METABOLIC [id number] 07:11:00 Test Item Value Reference Range Interpretation [...] S NOT APPLICABLE FOR DIALYSIS PATIEN TS. Cashier Ticket Selling ID - [id number] 07:11:00 Test Item Value Reference Range Interpretation Comments MAGNESIUM (BEAKER) (test code = 1.9 mg/dL 1.6-2.6 627) Cashier Ticket Selling ID - [id number] 07:11:00 Test Item Value Reference Range Interpretation Comments PHOSPHORUS (BEAKER) (test code = 2.3 mg/dL 2.3-4.7 604) Cashier Ticket Selling ID - EDASICBC with platelet count + automated [id number] 06:17:00 Test Item Value Reference Range Interpretation Comments WBC (test code = 6690-2) 10.6 See_Comment H [A utomated message] The system [employer] generated this result transmitted ref erence range: 3.5 - 10 .5 K/L. The refe rence range was not u sed to interpret this result as normal/abnor mal. RBC (test code = 789-8) 2.71 See_Comment L [Au tomated message] The system [employer] generated this result transmitted ref erence range: 3.93 - 5 .22 M/L. The refe rence range was not u sed to interpret this result as normal/abnor mal. MCHC (test code = 786-4) 31.7 See_Comment L [A utomated message] The system [employer] generated this result transmitted ref erence range: [...] See_Comment [Aut omated message] 777-3) The system [employer] generated this result transmitted ref erence range: 150 - 45 0 K/CU MM. The referen ce range was not u sed to interpret this result as normal/abnor mal. MPV (test code = 10.1 fL 9.4-12.3 56548-4) nRBC (test code = 413) 0 See_Comment [Aut omated message] The system [employer] generated this result transmitted ref erence range: [...] H [Aut omated message] 670) The system [employer] generated this result transmitted ref erence range: 1.56 - 6 .13 K/L. The refe rence range was not u sed to interpret this result as normal/abnor mal. # Lymphs (test code = 1.56 See_Comment [Auto mated message] 414) The system [employer] generated this result transmitted ref erence range: 1.18 - 3 .74 K/L. The refe rence range was not u sed to interpret this result as normal/abnor mal. # Monos (test code = 0.96 See_Comment H [Autom ated message] 415) The system [employer] generated this result transmitted ref erence range: 0.24 - 0 .36 K/L. The refe rence range was not u sed to interpret this result as normal/abnor mal. # Eos (test code = 416) 0.02 See_Comment L [Au tomated message] The system [employer] generated this result transmitted ref erence range: 0.04 - 0 .36 K/L. The refe rence range was not u sed to interpret this result as normal/abnor mal. # Baso (test code = 417) 0.04 See_Comment [A utomated message] The system [employer] generated this result transmitted ref erence range: 0.01 - 0 .08 K/L. The refe rence range was not u sed to interpret this result as normal/abnor mal. Immature 1 % 0-1 Granulocytes-Relative (test code = 2801) Lab Interpretation (test Abnormal code = 82272-4) [facility] with platelet count + automated [id number] 06:17:00 Test Item Value Reference Range Interpretation Comments WBC (test code = 6690-2) 10.6 See_Comment H [A utomated message] The system [employer] generated this result transmitted ref erence range: 3.5 - 10 .5 K/L. The refe rence range was not u sed to interpret this result as normal/abnor mal. RBC (test code = 789-8) 2.71 See_Comment L [Au tomated message] The system [employer] generated this result transmitted ref erence range: 3.93 - 5 .22 M/L. The refe rence range was not u sed to interpret this result as normal/abnor mal. MCHC (test code = 786-4) 31.7 See_Comment L [A utomated message] The system [employer] generated this result transmitted ref erence range: [...] See_Comment [Aut omated message] 777-3) The system [employer] generated this result transmitted ref erence range: 150 - 45 0 K/CU MM. The referen ce range was not u sed to interpret this result as normal/abnor mal. MPV (test code = 10.1 fL 9.4-12.3 91828-7) nRBC (test code = 413) 0 See_Comment [Aut omated message] The system [employer] generated this result transmitted ref erence range: [...] H [Aut omated message] 670) The system [employer] generated this result transmitted ref erence range: 1.56 - 6 .13 K/L. The refe rence range was not u sed to interpret this result as normal/abnor mal. # Lymphs (test code = 1.56 See_Comment [Auto mated message] 414) The system [employer] generated this result transmitted ref erence range: 1.18 - 3 .74 K/L. The refe rence range was not u sed to interpret this result as normal/abnor mal. # Monos (test code = 0.96 See_Comment H [Autom ated message] 415) The system [employer] generated this result transmitted ref erence range: 0.24 - 0 .36 K/L. The refe rence range was not u sed to interpret this result as normal/abnor mal. # Eos (test code = 416) 0.02 See_Comment L [Au tomated message] The system [employer] generated this result transmitted ref erence range: 0.04 - 0 .36 K/L. The refe rence range was not u sed to interpret this result as normal/abnor mal. # Baso (test code = 417) 0.04 See_Comment [A utomated message] The system [employer] generated this result transmitted ref erence range: 0.01 - 0 .08 K/L. The refe rence range was not u sed to interpret this result as normal/abnor mal. Immature 1 % 0-1 Granulocytes-Relative (test code = 2801) Lab Interpretation (test Abnormal code = 11078-9) [facility] W/PLT COUNT & AUTO [id number] 06:17:00 Test Item Value Reference Range Interpretation [...] PERCENT (BEAKER) (test code = 2801) POCT-GLUCOSE [id number] 05:16:00 Test Item Value Reference Range Interpretation Comments POC-GLUCOSE METER 122 mg/dL 70-110 H : TESTED Temo Ortiz [facility] 6720 (BEAKER) (test code = [place], 1538) [address]: Cashier Ticket Selling/Techni tigre ID = [id number] for VIVIENNE LOPEZ SE SRGA-[id number] 00:56:00 Test Item Value Reference Range Interpretation Comments POC-Glucose (test code = 124 mg/dL 70-110 H : Francisco MCKIN[facility] AT [facility] 7055) [address] [facility], [address]: Cashier Ticket Selling/Techni tigre ID = [id number] for ZULLY BONNER Lab Interpretation (test Abnormal code = 83808-5) [facility]-[id number] 00:56:00 Test Item Value Reference Range Interpretation Comments POC-Glucose (test code = 124 mg/dL 70-110 H : T ESTED AT [facility] 1855) [address] [facility], [address]: Cashier Ticket Selling/Techni tigre ID = [id number] for ZULLY BONNER ALD Lab Interpretation (test Abnormal code = 14525-4) [facility]-[id number] 00:56:00 Test Item Value Reference Range Interpretation Comments POC-GLUCOSE 124 mg/dL 70-110 H : TESTED AT [facility] 6720 (BEAKER) (test code [facility], = 1855) [address]: Cashier Ticket Selling/Techni tigre ID = [id number] for LESA YBARRA POC-Blood gases, [id number] 00:55:00 Test Item Value Reference Range Interpretation Comments Temp. Celsius-POC (test 97.4 code = 1834) FIO2-POC (test code = 44 1835) pH, Venous-POC (test 7.315 7.320-7.420 L : TESTE D AT [facility] code = 1842) [address] [facility], [address] PCO2, Venous-POC (test 55.6 See_Comment H If [...] mated message] code = 1844) The system ic h generated this result transmit rory reference range : 25.0 - 40.0 mm Hg. The reference r zo was not used to interpret this result as normal/abnormal . SO2, Venous-POC (test 56.0 % 40-70 code = 1845) HCO3, Venous-POC (test 28.5 meq/L 21-29 code = 1846) BE, Venous-POC (test 2.0 meq/L -2-3 : code = 1847) Cashier Ticket Selling/Techni tigre ID = [id number] for BAYANG, FITZGER ALD Lab Interpretation Abnormal (test code = 44104-1) [facility]-Calcium [id number] 00:55:00 Test Item Value Reference Range Interpretation Comments POC-Calcium Ionized 1.24 mmol/L 1.12-1.27 : TESTED AT [facility] (test code = 1536) [address] [place] [address], [address]: Cashier Ticket Selling/Techni tigre ID = [id number] for BAYANG, FITZGER ALD Lab Interpretation Normal (test code = 42726-6) [facility]-[id number] 00:55:00 Test Item Value Reference Range Interpretation Comments POC-Potassium (test code 3.9 meq/L 3.6-5.5 : T ESTED AT [facility] = 1540) 45 [place] [address], [address]: Cashier Ticket Selling/Techni tigre ID = [id number] for BAYANG, FITZGER ALD Lab Interpretation (test Normal code = 90831-4) [facility]-[id number] 00:55:00 Test Item Value Reference Range Interpretation Comments POC-Sodium (test code = 141 meq/L 135-148 : TE STED AT [facility] 1542) [address] [place] [address], [address]: Cashier Ticket Selling/Techni tigre ID = [id number] for BAYANG, FITZGER ALD Lab Interpretation (test Normal code = 37089-9) [facility]-[id number] 00:55:00 Test Item Value Reference Range Interpretation Comments POC-Hemoglobin (test code 8.8 g/dL 12-15 L : TESTED AT [facility] = 1856) [address] [place] [address], [address]: Cashier Ticket Selling/Techni tigre ID = [id number] for BAYANG, FITZGER ALD Lab Interpretation (test Abnormal code = 64095-3) [facility]-[id number] 00:55:00 Test Item Value Reference Range Interpretation Comments POC-Hematocrit (test code 26 % 36-45 L : = 3037) Cashier Ticket Selling/Techni tigre ID = [id number] for ZULLY BONNER Lab Interpretation (test Abnormal code = 41287-2) [facility]-Blood gases, [id number] 00:55:00 Test Item Value Reference Range Interpretation Comments Temp. Celsius-POC (test 97.4 code = 1834) FIO2-POC (test code = 44 1835) pH, Venous-POC (test 7.315 7.320-7.420 L : TESTE D AT [facility] code = 1842) [address] [place], [address] PCO2, Venous-POC (test 55.6 See_Comment H If [...] mated message] code = 1844) The system Elite Form generated this result transmit rory reference range : 25.0 - 40.0 mm Hg. The reference r zo was not used to interpret this result as normal/abnormal . SO2, Venous-POC (test 56.0 % 40.0-70.0 code = 1845) HCO3, Venous-POC (test 28.5 meq/L 21.0-29.0 code = 1846) BE, Venous-POC (test 2.0 meq/L -2.0-3.0 : code = 1847) Cashier Ticket Selling/Techni tigre ID = [id number] for ZULLY BONNER Lab Interpretation Abnormal (test code = 13325-6) [facility]-Calcium [id number] 00:55:00 Test Item Value Reference Range Interpretation Comments POC-Calcium Ionized 1.24 mmol/L 1.12-1.27 : TESTED AT [facility] (test code = 1536) [address] [facility] [place], [address]: Cashier Ticket Selling/Techni tigre ID = [id number] for ZULLY BONNER Lab Interpretation Normal (test code = 02142-7) [facility]-Wyjnbrpyf9483-90-27 00:55:00 Test Item Value Reference Range Interpretation Comments POC-Potassium (test code 3.9 meq/L 3.6-5.5 : T ESTED AT [facility] = 1540) [address] [facility], [address]: Cashier Ticket Selling/Techni tigre ID = [id number] for BAYANGUSMANZGER ALD Lab Interpretation (test Normal code = 45141-5) [facility]-Uqdijc6095-69-93 00:55:00 Test Item Value Reference Range Interpretation Comments POC-Sodium (test code = 141 meq/L 135-148 : TE STED AT [facility] 1542) [address] [facility], [address]: Cashier Ticket Selling/Techni tigre ID = [id number] for BAYANG, USMANZGER ALD Lab Interpretation (test Normal code = 07096-4) [facility]-[id number] 00:55:00 Test Item Value Reference Range Interpretation Comments POC-Hemoglobin (test code 8.8 g/dL 12.0-15.0 L : TESTED AT [facility] = 1856) [address] [facility], [address]: Cashier Ticket Selling/Techni tigre ID = [id number] for BAYANG, FITZGER ALD Lab Interpretation (test Abnormal code = 66758-0) [facility]-[id number] 00:55:00 Test Item Value Reference Range Interpretation Comments POC-Hematocrit (test code 26 % 36-45 L : = 1857) Cashier Ticket Selling/Techni tigre ID = [id number] for BAYANG, USMANZGER ALD Lab Interpretation (test Abnormal code = 64928-8) [facility]-BLOOD GASES, [id number] 00:55:00 Test Item Value Reference Range Interpretation Comments TEMP, CELSIUS-POC 97.4 (BEAKER) (test code = 1834) FIO2-POC (BEAKER) 44 (test code = 1835) PH, VENOUS-POC 7.315 7.320-7.420 L : TESTED AT [facility] 6720 (BEAKER) (test code [facility], = 184) [address] PCO2, VENOUS-POC 55.6 mm Hg 41.0-51.0 H If pO2 is > 180, pCO2 may (BEAKER) (test code be posit ively biased = 1843) PO2, VENOUS-POC 31.0 mm Hg 25.0-40.0 ([facility]) (test code = 1844) SO2, VENOUS-POC 56.0 % 40.0-70.0 ([facility]) (test code = 1845) HCO3, VENOUS-POC 28.5 meq/L 21.0-29.0 ([facility]) (test code = 1846) BASE EXCESS, 2.0 meq/L -2.0-3.0 : Cashier Ticket Selling/Tech nician ID VENOUS-POC ([facility]) = [id number] for HA, (test code = 1847) DANO D ESOX-[id number] 00:55:00 Test Item Value Reference Range Interpretation Comments POC-SODIUM ([facility]) 141 meq/L 135-148 : TESTED AT [place] [address] (test code = 1542) [facility], [address]: Cashier Ticket Selling/Techni tigre ID = [id number] for LESA YBARRA XKWK-[id number] 00:55:00 Test Item Value Reference Range Interpretation Comments POC-POTASSIUM 3.9 meq/L 3.6-5.5 : TESTED AT [place] [address] ([facility]) (test code [facility], = 1540) [address]: Cashier Ticket Selling/Techni tigre ID = [id number] for LESA YBARRA LJVQ-[id number] 00:55:00 Test Item Value Reference Range Interpretation Comments POC-HEMOGLOBIN 8.8 g/dL 12.0-15.0 L : TESTED AT [place] [address] ([facility]) (test code [facility], = 1856) [address]: Cashier Ticket Selling/Techni tigre ID = [id number] for LESA YBARRA GBIK-[id number] 00:55:00 Test Item Value Reference Range Interpretation Comments POC-HEMATOCRIT 26 % 36-45 L : Cashier Ticket Selling/Te chnician ID = ([facility]) (test code = 192495 for HA, 185) LESA POCT-CALCIUM [id number] 00:55:00 Test Item Value Reference Range Interpretation Comments POC-CALCIUM IONIZED 1.24 mmol/L 1.12-1.27 : TESTED AT [place] [address] ([facility]) (test code [facility], = 1536) [address]: Cashier Ticket Selling/Techni tigre ID = [id number] for LESA ARIZMENDI RAD, CHEST, 1 VIEW, NON [id number] 00:55:00Reason for exam:- >desaturationShould this be performed at the bedside?->Yes [facility] 1950 Sex: [...] 12:55 AMXR chest 1 view portable / [id number] 00:55:00Interface, External Ris In - 07/23/2020 12:57 [...] José Dickens MDReport Verified Date/Time: 07/23/2020 00:55:19 [facility] [id number] 00:51:00 Test Item Value Reference Range Interpretation Comments POC-GLUCOSE METER 127 mg/dL 70-110 H : TESTED A T [facility] 6720 (BEAKER) (test code = [facility], 1538) [address]: Cashier Ticket Selling/Techni tigre ID = [id number] for VIVIENNE LOPEZ SE BASIC METABOLIC [id number] 15:53:00 Test Item Value Reference Range Interpretation [...] S NOT APPLICABLE FOR DIALYSIS PATIEN TS. Cashier Ticket Selling ID - AOUWIEPOJYBNTWLQ7449-20-88 15:44:00 Test Item Value Reference Range Interpretation Comments MAGNESIUM (BEAKER) (test code = 2.0 mg/dL 1.6-2.6 627) Cashier Ticket Selling ID - RBAVNPPUKQSAYMGHS3410-79-14 15:44:00 Test Item Value Reference Range Interpretation Comments PHOSPHORUS (BEAKER) (test code = 2.4 mg/dL 2.3-4.7 604) Cashier Ticket Selling ID - AAQUINCYLactic Acid, Ollqwwma7674-34-81 15:34:00 Test Item Value Reference Range Interpretation Comments Lactate, Art (test 0.8 mmol/L 0.5-2.2 Specimen code = 2874) moderately hemolyzed STAR (test code = STAR) Cashier Ticket Selling ID - AAQUINCY Lab Interpretation Normal (test code = 75532-7) [facility], [id number] 15:34:00 Test Item Value Reference Range Interpretation Comments Lactate, Art (test 0.8 mmol/L 0.5-2.2 Specimen code = 2874) moderately hemolyzed STAR (test code = STAR) Cashier Ticket Selling ID - JOSE LUIS Lab Interpretation Normal (test code = 72898-2) [facility]ID, [id number] 15:34:00 Test Item Value Reference Range Interpretation Comments LACTATE BLOOD 0.8 mmol/L 0.5-2.2 Specimen moder ately ARTERIAL (2) (BEAKER) hemoly zed (test code = 2874) Cashier Ticket Selling ID - AAHAMIDCBC W/PLT COUNT & AUTO [id number] 15:11:00 Test Item Value Reference Range Interpretation [...] (BEAKER) (test code = 2801) Blood gas, [id number] 15:07:00 Test Item Value Reference Range Interpretation Comments pH, Arterial (test code 7.35 7.35-7.45 = 2744-1) pCO2, Arterial (test 51 See_Comment H [Autom ated message] code = 2019-8) The system [facility] generated this result transmit rory reference range : 35 - 45 mm Hg. The reference range was not used to interpret this result as normal/abnormal . pO2, Arterial (test 112 See_Comment H [Automa rory message] code = 2703-7) The system Quintura generated this result transmit rory reference range [...] 36 Lab Interpretation Abnormal (test code = 36973-8) [facility], [id number] 15:07:00 Test Item Value Reference Range Interpretation Comments pH, Arterial (test code 7.35 7.35-7.45 = 2744-1) pCO2, Arterial (test 51 See_Comment H [Autom ated message] code = 2019-8) The system Quintura generated this result transmit rory reference range : 35 - 45 mm Hg. The reference range was not used to interpret this result as normal/abnormal . pO2, Arterial (test 112 See_Comment H [Automa rory message] code = 2703-7) The system Quintura generated this result transmit rory reference range : 80 - 90 mm Hg. The reference range was not used to interpret this result as normal/abnormal . O2 Sat, Arterial (test 97.9 % 96.0-97.0 H code = 2708-6) HCO3, Arterial (test 27 mmol/L 21-29 code = 1960-4) Base Excess, Arterial 1.2 mmol/L -2.0-3.0 (test code = 1925-7) Patient Temperature 36.4 (test code = 8310-5) FIO2 (test code = 1819) 36 Lab Interpretation Abnormal (test code = 63142-8) [facility]OD GAS, [id number] 15:07:00 Test Item Value Reference Range Interpretation [...] 1819) 36.0 RAD, CHEST, 1 VIEW, NON [id number] 13:46:00Reason for exam:->s/p carotidShould this be performed at the bedside?->Yes [facility] 1950 Sex: FFINAL REPORT [...] MDReport Verified Date/Time: 07/22/2020 13:46:15 Reading Location: [facility] Radiology Reading Room Calcium, [id number] 11:34:00 Test Item Value Reference Range Interpretation Comments Calcium, Ion (test code = 1993-) 1.09 mmol/L 1.12-1.27 L pH, Blood (test code = 44376-5) 7.33 Lab Interpretation (test code = Abnormal 67193-1) [facility] (H&H)-Stat [id number] 11:34:00 Test Item Value Reference Range Interpretation Comments Hemoglobin (test code = 8.4 See_Comment L [Au tomated message] 786-4) The system Elite Form generated this result transmitted ref erence range: 12.0 - 1 5.0 GM/DL. The refe rence range was not u sed to interpret this result as normal/abnor mal. Hematocrit (test code = 25.0 % 36-45 L 4544-3) Lab Interpretation (test Abnormal code = 52107-7) [facility]Glucose-Stat [id number] 11:34:00 Test Item Value Reference Range Interpretation Comments Glucose (test code = 2345-7) 122 mg/dL 70-110 H Lab Interpretation (test code = Abnormal 80517-0) [facility]Potassium-Stat [id number] 11:34:00 Test Item Value Reference Range Interpretation Comments Potassium (test code = 2823-3) 3.3 meq/L 3.6-5.5 L Lab Interpretation (test code = Abnormal 32811-1) [facility]Calcium, [id number] 11:34:00 Test Item Value Reference Range Interpretation Comments Calcium, Ion (test code = 1994-3) 1.09 mmol/L 1.12-1.27 L pH, Blood (test code = 29951-0) 7.33 Lab Interpretation (test code = Abnormal 87388-5) [facility]/H[facility] (H&H)-Stat [id number] 11:34:00 Test Item Value Reference Range Interpretation Comments Hemoglobin (test code = 8.4 See_Comment L [Au tomated message] 786-4) The system Elite Form generated this result transmitted ref erence range: 12.0 - 1 5.0 GM/DL. The refe rence range was not u sed to interpret this result as normal/abnor mal. Hematocrit (test code = 25.0 % 36.0-45.0 L 4544-3) Lab Interpretation (test Abnormal code = 98788-0) [facility] HospitalGlucose-Stat [id number] 11:34:00 Test Item Value Reference Range Interpretation Comments Glucose (test code = 2345-7) 122 mg/dL 70-110 H Lab Interpretation (test code = Abnormal 85469-0) [facility] HospitalPotassium-Stat [id number] 11:34:00 Test Item Value Reference Range Interpretation Comments Potassium (test code = 2823-3) 3.3 meq/L 3.6-5.5 L Lab Interpretation (test code = Abnormal 53469-9) [facility] HospitalCALCIUM, [id number] 11:34:00 Test Item Value Reference Range Interpretation Comments CALCIUM IONIZED (BEAKER) (test 1.09 mmol/L 1.12-1.27 L code = 698) PH, BLOOD (BEAKER) (test code = 7.33 1810) POTASSIUM-STAT [id number] 11:34:00 Test Item Value Reference Range Interpretation Comments POTASSIUM (BEAKER) (test code = 3.3 meq/L 3.6-5.5 L 379) GLUCOSE-STAT [id number] 11:34:00 Test Item Value Reference Range Interpretation Comments GLUCOSE RANDOM (BEAKER) (test code 122 mg/dL 70-110 H = 652) HGB/HCT (H&H) - STAT [id number] 11:34:00 Test Item Value Reference Range Interpretation Comments HEMOGLOBIN (BEAKER) (test code = 8.4 GM/DL 12.0-15.0 L 410) HEMATOCRIT (BEAKER) (test code = 25.0 % 36.0-45.0 L 411) Transesophageal [id number] 10:59:28Ejection FractionSLEH ECHO HEARTLAB MKCKESSON CPACSInterface, External Ris In - 07/22/2020 10:59 AM C STTransesophageal Echocardiography Report (FRANCY) Demographics Patient Name ERICA JASON Date of Study 07/19/2020 MAIRA Gender Female Visit Number [id number] Race Unknown Room Number SCPR Number Date of 1950 Referring Physician Vincent Ferrer MD Age 70 year(s) Mailroom Associate Divine Hunter [facility] Interpreting Physician TYLOR Blankenship Procedure [...] LVOT CO: 5.89 l/min LVOT CI: 2.89 l/min/m^2CNaval [facility] Transesophageal [id number] 10:59:28Ejection FractionSLEH ECHO HEARTLAB MKCKESSON CPAPomerado HospitalARS-CoV2/RT-PCR (Asymptomatic ONLY) 2020-07-22 07:09:00 Test Item Value Reference Range Interpretation Comments SARS-COV2/RT-PCR Negative Not Detected, (test code = Negative, See 29153-9) external report for linked test SARS-COV-2 [facility] PERFORMING LAB (test code = 85193-5) STAR (test code = Negative result for [...] the Act. Testing was performed using the United Prototype SARS-CoV-2 assay. Fact Sheet for Healthcare Providers:https://www.Yappe/elder/RT_SA PD-MgQ-2_HCZ_Uznb_Aqhse_ 51-397472.pdf Fact Sheet for Healthcare Patients:https://www.6connect/elder/RT_SAR Y-IrA-4_Qewmiup_Qrzv_Mdr et_EN_51-910433E6.pdf Performing Laboratory:[facility], [place] [address] [place], [place] [address]ARS-CoV2/RT-PCR (Asymptomatic ONLY)2020-07-22 07:09:00 Test Item Value Reference Range Interpretation Comments SARS-COV2/RT-PCR Negative Not Detected, (test code = Negative, See 51109-5) external report for linked test SARS-COV-2 [facility] PERFORM[facility] (test code = 45885-0) STAR (test code = Negative result for [...] the Act. Testing was performed using the United Prototype SARS-CoV-2 assay. Fact Sheet for Healthcare Providers:https://www.Yappe/elder/RT_SA DG-XiP-0_HLF_Frey_Vplnx_ 51-266423.pdf Fact Sheet for Healthcare Patients:https://www.6connect/elder/RT_SAR E-UrP-0_Viiypai_Ecss_Ltq et_EN_51-029898S4.pdf Performing Laboratory:[address], [place] [address] [place], [place] [address]ARS-COV2/RT-PCR ([facility])2020-07-22 07:09:00 Test Item Value Reference Range Interpretation Comments SARS-COV2/RT-PCR (test Negative Not Detected, Negative, code = 9377236) See external report for linked test SARS-COV-[address] [facility] (test code = 1737975) Negative result for this test determines that [...] the Marie SARS-CoV-2 assay.Fact Sheet for Healthcare Providers:https://www.VidBid.marie/elder/ UD_CDYA-BdV-1_GMA_Zuxq_Wqlum_90-365173.pdfFact Sheet for Healthcare Patients:https://www.VidBid.Grand Perfecta tere/elder/HB_LKEB-KwA-2_Kpdbgsm_Sgbm_Savlk_LJ_97-457976Z1.pdfPerforming Laboratory:[address] [address]NPQ W/PLT COUNT & AUTO [id number] 05:42:00 Test Item Value Reference Range Interpretation [...] (BEAKER) (test code = 2801) BASIC METABOLIC [id number] 05:35:00 Test Item Value Reference Range Interpretation [...] S NOT APPLICABLE FOR DIALYSIS PATIEN TS. Cashier Ticket Selling ID - PIROMA [id number] 05:35:00 Test Item Value Reference Range Interpretation Comments MAGNESIUM (BEAKER) (test code = 2.2 mg/dL 1.6-2.6 627) Cashier Ticket Selling ID - JOSE [id number] 05:35:00 Test Item Value Reference Range Interpretation Comments PHOSPHORUS (BEAKER) (test code = 2.5 mg/dL 2.3-4.7 604) Cashier Ticket Selling ID - JOSE LPOCT-GLUCOSE [id number] 05:20:00 Test Item Value Reference Range Interpretation Comments POC-GLUCOSE METER 122 mg/dL 70-110 H : TESTED A T [facility] 6720 (BEAKER) (test code = [facility], 153) [address]: Cashier Ticket Selling/Techni tigre ID = [id number] for CHEVY COLLINJulita (V) BRIDGER POCT-GLUCOSE [id number] 21:05:00 Test Item Value Reference Range Interpretation Comments POC-GLUCOSE METER 150 mg/dL 70-110 H : TESTED A T [facility] 6720 (BEAKER) (test code = [facility], 153) [address]: Cashier Ticket Selling/Techni tigre ID = [id number] for YONI BENNETT POCT-GLUCOSE [id number] 16:43:00 Test Item Value Reference Range Interpretation Comments POC-GLUCOSE METER 156 mg/dL 70-110 H : TESTED A T [facility] 6720 (BEAKER) (test code = [facility], 153) [address]: Cashier Ticket Selling/Techni tigre ID = [id number] for ILYA FRIEDMAN [id number] 16:06:00 Test Item Value Reference Range Interpretation Comments PTT (test code = 58091-2) 30.3 See_Comment [ Automated message] The system Elite Form generated this result transmitted ref erence range: 22.5 - 3 6.0 seconds. The re ference range was not u sed to interpret this result as normal/abnor mal. Lab Interpretation (test Normal code = 97083-0) [facility]aPTT2021-01-13 16:06:00 Test Item Value Reference Range Interpretation Comments PTT (test code = 60470-6) 30.3 See_Comment [ Automated message] The system Elite Form generated this result transmitted ref erence range: 22.5 - 3 6.0 seconds. The re ference range was not u sed to interpret this result as normal/abnor mal. Lab Interpretation (test Normal code = 29532-0) [facility]APTT2021-01-13 16:06:00 Test Item Value Reference Range Interpretation Comments PARTIAL THROMBOPLASTIN TIME 30.3 seconds 22.5-36.0 (BEAKER) (test code = 760) Prothrombin time/[id number] 16:05:00 Test Item Value Reference Interpretation Comments [...] valves. Lab Interpretation Normal (test code = 28485-5) [facility] HospitalProthrombin time/[id number] 16:05:00 Test Item Value Reference Interpretation Comments [...] valves. Lab Interpretation Normal (test code = 91562-3) [facility]PROTHROMBIN [facility]/[id number] 16:05:00 Test Item Value Reference Range Interpretation [...] for patients wiht mechanical heart valves.BASIC METABOLIC [id number] 04:00:00 Test Item Value Reference Range Interpretation [...] S NOT APPLICABLE FOR DIALYSIS PATIEN TS. Cashier Ticket Selling ID - LIBIA [id number] 04:00:00 Test Item Value Reference Range Interpretation Comments MAGNESIUM (BEAKER) (test code = 1.9 mg/dL 1.6-2.6 627) Cashier Ticket Selling ID - LIBIA OILMLAHRFEH0887-89-07 04:00:00 Test Item Value Reference Range Interpretation Comments PHOSPHORUS (BEAKER) (test code = 2.4 mg/dL 2.3-4.7 604) Cashier Ticket Selling ID - LIBIA WCBC W/PLT COUNT & AUTO [id number] 03:54:00 Test Item Value Reference Range Interpretation [...] PERCENT (BEAKER) (test code = 2801) POCT-GLUCOSE [id number] 18:33:00 Test Item Value Reference Range Interpretation Comments POC-GLUCOSE METER 124 mg/dL 70-110 H : TESTED A T [facility] 6720 (BEAKER) (test code = [facility], 1538) [address]: Cashier Ticket Selling/Techni tigre ID = [id number] for LAURIE VILLASENOR POCT-GLUCOSE [id number] 11:58:00 Test Item Value Reference Range Interpretation Comments POC-GLUCOSE METER 92 mg/dL 70-110 : TESTED A T [facility] 6720 (BEAKER) (test code = [facility], 1538) [address]: Cashier Ticket Selling/Techni tigre ID = [id number] for LAURIE VILLASENOR 2D Echo W/Doppler(CW/PW/Color)2020-07-20 09:54:32Ejection FractionSLEH ECHO HEARTLAB MKCKESSON CPACSInterface, External Ris In - 07/20/2020 9:54 AM C STTransthoracic Echocardiography Report (TTE) Demographics Patient Name ERICA JASON Date of Study 07/19/2020 MAIRA Gender Female Visit Number [id number] Race Unknown Room Number 2C25 Number Date of 1950 Referring Physician Hayden Lewis Age 70 year(s) Mailroom Associate Tyshawn Arambula [facility] Interpreting Sheila Evans MD PhysicianFelldominic [...] 22.73 mmHg Pulmonic Valve Estimated PASP: 32.73 mmHgSan Francisco Marine Hospital2D Echo W/Doppler(CW/PW/Color)2020-07-20 09:54:32Ejection FractionSLEH ECHO HEARTLAB MKCKESSON CPACSSan Francisco Marine HospitalPOCT-GLUCOSE [id number] 07:06:00 Test Item Value Reference Range Interpretation Comments POC-GLUCOSE METER 87 mg/dL 70-110 : [facility] (BEAKER) (test code = [place], 1538) [address]: Cashier Ticket Selling/Techni tigre ID = [id number] for HEBERT QUINONEZ (Norman)JANELL BASIC METABOLIC [id number] 04:37:00 Test Item Value Reference Range Interpretation [...] 697) EGFR (BEAKER) (test 80 mL/min/1.73 ESTIMA ROYR GFR IS code = 1092) sq m NOT ACCURATE CREATININE CLEARANCE IN PREDICTING GLOMERULAR FILTRATION RATE . ESTIMATED GFR I S NOT APPLICABLE FOR DIALYSIS PATIEN TS. Cashier Ticket Selling ID - ALEKSEY [id number] 04:37:00 Test Item Value Reference Range Interpretation Comments MAGNESIUM (BEAKER) (test code = 1.6 mg/dL 1.6-2.6 627) Cashier Ticket Selling ID - ALEKSEY FKORBJRFKOZ3017-54-81 04:37:00 Test Item Value Reference Range Interpretation Comments PHOSPHORUS (BEAKER) (test code = 4.0 mg/dL 2.3-4.7 604) Cashier Ticket Selling THELMA RYDER [facility] W/PLT COUNT & AUTO [id number] 03:55:00 Test Item Value Reference Range Interpretation [...] PERCENT (BEAKER) (test code = 2801) POCT-GLUCOSE [id number] 23:44:00 Test Item Value Reference Range Interpretation Comments POC-GLUCOSE METER 129 mg/dL 70-110 H : TESTED [facility] 6720 (BEAKER) (test code = [place], 1538) [address]: Cashier Ticket Selling/Techni tigre ID = [id number] for BRIDGER SURESH LACTIC ACID, [id number] 17:57:00 Test Item Value Reference Range Interpretation Comments LACTATE BLOOD 0.8 mmol/L 0.5-2.2 Specimen moder ately ARTERIAL (2) (BEAKER) hemoly zed (test code = 2874) Cashier Ticket Selling ID - DBBLOOD GAS, [id number] 17:43:00 Test Item Value Reference Range Interpretation [...] 1819) 36.0 Urinalysis w/Microscopic + Reflex to [id number] 16:52:00 Test Item Value Reference Range Interpretation Comments Color, UA (test code Yellow = 5778-6) Clarity, UA (test Clear code = 5767-9) Specific [place], UA 1.027 1.001-1.035 (test code = 5811-5) pH, UA (test code = 5.5 5.0-8.0 5803-2) Protein, UA (test 10 mg/dL Negative A code = 11219-6) Glucose, UA (test Negative Negative code = 365) Ketones, UA (test Trace Negative A code = 2514-8) Bilirubin, UA (test Negative Negative code = 23598-9) Blood, UA (test code Negative Negative = 50087-2) Nitrite, UA (test Negative Negative code = 5802-4) Leukocytes, UA (test Negative Negative code = 5799-2) Urobilinogen, UA 0.2 mg/dL 0.2-1 (test code = 39457-0) RBC, UA (test code = 2 See_Comment [Autom ated 80727-4) message] The system which generated this result [...] . Bacteria, UA (test Rare code = 29582-4) Mucus (test code = Rare 8247-9) Squam Epithel, UA 1 See_Comment [Automate d (test code = 84009-6) messag e] The system which generated this result transmit rory reference range : /HPF. The reference range was not used to interpret this result as normal/abnormal . Hyaline Casts, UA 12 See_Comment [Automate d (test code = 66011-5) messag e] The system which generated this result transmit rory reference range : /LPF. The reference range was not used to interpret this result as normal/abnormal . Crystals, Urine (test Rare code = 81796-7) Specimen Source (test code = 2795) STAR (test code = STAR) Cashier Ticket Selling ID - [auto]Cashier Ticket Selling ID - tech Lab Interpretation Abnormal (test code = 43483-3) [facility] Reflex to Culture 2020-07-19 16:52:00 Test Item Value Reference Range Interpretation Comments Color, UA (test code Yellow = 5778-6) Clarity, UA (test Clear code = 5767-9) Specific [place], UA 1.027 1.001-1.035 (test code = 5811-5) pH, UA (test code = 5.5 5.0-8.0 5803-2) Protein, UA (test 10 mg/dL Negative A code = 69158-1) Glucose, UA (test Negative Negative code = 365) Ketones, UA (test Trace Negative A code = 2514-8) Bilirubin, UA (test Negative Negative code = 75396-4) Blood, UA (test code Negative Negative = 66680-0) Nitrite, UA (test Negative Negative code = 5802-4) Leukocytes, UA (test Negative Negative code = 5799-2) Urobilinogen, UA 0.2 mg/dL 0.2-1.0 (test code = 84122-8) RBC, UA (test code = 2 See_Comment [Autom ated 03977-6) message] The system which generated this result [...] . Bacteria, UA (test Rare code = 56028-3) Mucus (test code = Rare 8247-9) Squam Epithel, UA 1 See_Comment [Automate d (test code = 78584-5) messag e] The system which generated this result transmit rory reference range : /HPF. The reference range was not used to interpret this result as normal/abnormal . Hyaline Casts, UA 12 See_Comment [Automate d (test code = 12548-9) messag e] The system which generated this result transmit rory reference range : /LPF. The reference range was not used to interpret this result as normal/abnormal . Crystals, Urine (test Rare code = 61704-8) Specimen Source (test code = 2795) STAR (test code = STAR) Cashier Ticket Selling ID - [auto]Cashier Ticket Selling ID - tech Lab Interpretation Abnormal (test code = 44135-1) [facility] URINE [id number] 16:52:00 Test Item Value Reference Range Interpretation [...] = 1521) SOURCE(BEAKER) (test code = 2795) Cashier Ticket Selling ID - [auto]Cashier Ticket Selling ID - [id number] 16:39:00 Test Item Value Reference Range Interpretation Comments Cortisol, Total (test 85.0 ug/dL 3.7-19.4 H code = 2755) STAR (test code = STAR) Cashier Ticket Selling ID - DBOperator ID - DB Lab Interpretation (test Abnormal code = 72870-1) [facility] 16:39:00 Test Item Value Reference Range Interpretation Comments Cortisol, Total (test 85.0 ug/dL 3.7-19.4 H code = 2755) STAR (test code = STAR) Cashier Ticket Selling ID - DBOperator ID - DB Lab Interpretation (test Abnormal code = 63760-4) [place] [id number] 16:39:00 Test Item Value Reference Range Interpretation Comments CORTISOL, TOTAL (BEAKER) (test 85.0 ug/dL 3.7-19.4 H code = 2755) Cashier Ticket Selling ID - DBOperator ID - DBTSH/Free T4 If [id number] 16:06:00 Test Item Value Reference Range Interpretation Comments TSH (test code = 0.749 See_Comment [Automated 23745-3) message] The system which generated this result transmit rory reference range : 0.350 - 4.940 uIU/mL. The reference range was not used to interpret this result as normal/abnormal . STAR (test code = STAR) Cashier Ticket Selling ID - DB Lab Interpretation Normal (test code = 29677-8) [facility]Free T4 If [id number] 16:06:00 Test Item Value Reference Range Interpretation Comments TSH (test code = 0.749 See_Comment [Automated 58373-1) message] The system which generated this result transmit rory reference range : 0.350 - 4.940 uIU/mL. The reference range was not used to interpret this result as normal/abnormal . STAR (test code = STAR) Cashier Ticket Selling ID - DB Lab Interpretation Normal (test code = 09039-0) [facility]/FREE T4 IF [id number] 16:06:00 Test Item Value Reference Range Interpretation Comments THYROID STIMULATING HORMONE 0.749 uIU/mL 0.350-4.940 (BEAKER) (test code = 772) Cashier Ticket Selling ID - DBComprehensive metabolic [id number] 15:34:00 Test Item Value Reference Range Interpretation [...] 3.2 g/dL 3.5-5 L Specime n slightly 14179-9) hemolyzed Alkaline Phosphatase 43 U/L 40-150 (test code = 6768-6) Total Bilirubin (test 0.5 mg/dL 0.2-1.2 Specim en slightly code = 1975-2) hemolyzed Sodium (test code = 141 meq/L 803-757 1813-2) Potassium (test code 4.0 meq/L 3.5-5.1 Specime n slightly = 2823-3) hemolyzed Chloride (test code = 108 meq/L 98-107 H 5-0) CO2 (test code = 26 meq/L 22-29 8-9) BUN (test code = 13 mg/dL 7-21 3094-0) Creatinine (test code 0.92 mg/dL 0.57-1.25 Specim en slightly = 2160-0) hemolyzed Glucose (test code = 152 mg/dL 70-105 H 2345-7) Calcium (test code = 9.3 mg/dL 8.4-10.2 59565-9) AST (test code = 22 U/L 5-34 Specimen sl ightly 1920-8) hemolyzed ALT (test code = 8 U/L 6-55 Specimen sl ightly 1742-6) hemolyzed EGFR (test code = 60 mL/min/1.73 [place] [address]-9) NOT ACCURATE CREATININE CLEARANCE IN PREDICTING GLOMERULAR FILTRATION RATE . ESTIMATED GFR I S NOT APPLICABLE FOR DIALYSIS PATIEN TS. STAR (test code = STAR) Cashier Ticket Selling ID - DB Lab Interpretation Abnormal (test code = 19556-5) [facility]Com[facility] [id number] 15:34:00 Test Item Value Reference Range Interpretation Comments Protein, Total (test 5.8 See_Comment L Specime n slightly code = 9245-2) hemolyzed [Automated message] The system which generated this result transmit rory reference range : 6.0 - 8.3 gm/dL . The reference range was not u sed to interpret th is result as normal/abnormal . Albumin (test code = 3.2 g/dL 3.5-5.0 L Specime n slightly 54794-1) hemolyzed Alkaline Phosphatase 43 U/L 40-150 (test code = 6768-6) Total Bilirubin (test 0.5 mg/dL 0.2-1.2 Specim en slightly code = 1975-2) hemolyzed Sodium (test code = 141 meq/L 310-536 0012-2) Potassium (test code 4.0 meq/L 3.5-5.1 Specime n slightly = 2823-3) hemolyzed Chloride (test code = 108 meq/L 98-107 H 2074-0) CO2 (test code = 26 meq/L 22-29 2027-9) BUN (test code = 13 mg/dL 7-21 3094-0) Creatinine (test code 0.92 mg/dL 0.57-1.25 Specim en slightly = 2160-0) hemolyzed Glucose (test code = 152 mg/dL 70-105 H 2345-7) Calcium (test code = 9.3 mg/dL 8.4-10.2 57870-8) AST (test code = 22 U/L 5-34 Specimen sl ightly 1920-8) hemolyzed ALT (test code = 8 U/L 6-55 Specimen sl ightly 1742-6) hemolyzed EGFR (test code = 60 mL/min/1.[place] [address]-2) NOT ACCURATE CREATININE CLEARANCE IN PREDICTING GLOMERULAR FILTRATION RATE . ESTIMATED GFR I S NOT APPLICABLE FOR DIALYSIS PATIEN TS. STAR (test code = STAR) Cashier Ticket Selling ID - DB Lab Interpretation Abnormal (test code = 94016-0) [facility]MAG[facility]UM[facility] 15:34:00 Test Item Value Reference Range Interpretation Comments MAGNESIUM (BEAKER) 1.7 mg/dL 1.6-2.6 Specimen slightly (test code = 627) hemolyzed Cashier Ticket Selling ID - [id number] 15:34:00 Test Item Value Reference Range Interpretation Comments PHOSPHORUS (BEAKER) 3.9 mg/dL 2.3-4.7 Specimen slightly (test code = 604) hemolyzed Cashier Ticket Selling ID - DBCOMPREHENSIVE METABOLIC [id number] 15:34:00 Test Item Value Reference Range Interpretation [...] S NOT APPLICABLE FOR DIALYSIS PATIEN TS. Cashier Ticket Selling ID - [id number] 15:30:00 Test Item Value Reference Interpretation Comments Range Protime (test code = 13.9 See_Comment [Autom ated 5972-2) message] The system which generated this result transmitted reference range : 11.9 - 14.2 seconds. The reference range was not used to interpret this result as normal/abnormal . INR (test code = 1.11 See_Comment [Automated 1851-6) message] The system which generated this result transmitted reference range : <=5.90. The reference range was not used to interpret this result as normal/abnormal . PTT (test code = 24.3 See_Comment [Automated 14479-0) message] The system which generated this result [...] valves. Lab Interpretation Normal (test code = 23718-7) [facility]PT/[id number] 15:30:00 Test Item Value Reference Interpretation Comments Range Protime (test code = 13.9 See_Comment [Autom ated 1982-2) message] The system which generated this result transmitted reference range : 11.9 - 14.2 seconds. The reference range was not used to interpret this result as normal/abnormal . INR (test code = 1.11 See_Comment [Automated 5591-6) message] The system which generated this result transmitted reference range : <=5.90. The reference range was not used to interpret this result as normal/abnormal . PTT (test code = 24.3 See_Comment [Automated 70370-7) message] The system which generated this result [...] valves. Lab Interpretation Normal (test code = 45901-3) [facility]PT/[id number] 15:30:00 Test Item Value Reference Range Interpretation [...] is2.5-3.5 for patients wiht mechanical heart valves.PROTHROMBIN TIME/[id number] 15:29:00 Test Item Value Reference Range Interpretation [...] for patients wiht mechanical heart valves.LACTIC ACID, [id number] 15:26:00 Test Item Value Reference Range Interpretation Comments LACTATE BLOOD 0.9 mmol/L 0.5-2.2 Specimen moder ately ARTERIAL (2) (BEAKER) hemoly zed (test code = 2874) Cashier Ticket Selling ID - DBRAD, CHEST, 1 VIEW, NON [id number] 15:22:00For chest painReason for exam:->post-operativeShould this be performed at the bedside?->YesS[facility] : 1950 Sex: FFINAL [...] MDReport Verified Date/Time: 07/19/2020 15:22:42 Reading Location: [facility] Radiology Reading Room CBC W/PLT COUNT & AUTO [id number] 15:19:00 Test Item Value Reference Range Interpretation [...] PERCENT (BEAKER) (test code = 2801) Platelet [id number] 14:43:00 Test Item Value Reference Range Interpretation Comments Platelets (test code 428 See_Comment [Autom ated = 777-3) message] The system which generated this result transmit rory reference range : 150 - 450 K/CU MM. The reference range was not u sed to interpret th is result as normal/abnormal . STAR (test code = STAR) Cashier Ticket Selling ID - 6000 Lab Interpretation Normal (test code = 00555-7) [facility] HospitalPlatelet [id number] 14:43:00 Test Item Value Reference Range Interpretation Comments Platelets (test code 428 See_Comment [Autom ated = 777-3) message] The system which generated this result transmit rory reference range : 150 - 450 K/CU MM. The reference range was not u sed to interpret th is result as normal/abnormal . STAR (test code = STAR) Cashier Ticket Selling ID - 6000 Lab Interpretation Normal (test code = 61215-9) [facility] HospitalPLATELET [id number] 14:43:00 Test Item Value Reference Range Interpretation Comments PLATELET COUNT (BEAKER) (test 428 K/CU MM 150-450 code = 756) Cashier Ticket Selling ID - 6000GLUCOSE-STAT [id number] 14:39:00 Test Item Value Reference Range Interpretation Comments GLUCOSE RANDOM (BEAKER) (test code 157 mg/dL 70-110 H = 652) Only if arterial line present.HGB/HCT (H&H) - STAT [id number] 14:39:00 Test Item Value Reference Range Interpretation Comments HEMOGLOBIN (BEAKER) (test code = 12.0 GM/DL 12.0-15.0 410) HEMATOCRIT (BEAKER) (test code = 35.0 % 36.0-45.0 L 411) Only if arterial line present.BLOOD GAS, [id number] 14:39:00 Test Item Value Reference Range Interpretation [...] 1819) 44.0 Only if arterial line present.CALCIUM, [id number] 14:39:00 Test Item Value Reference Range Interpretation Comments CALCIUM IONIZED (BEAKER) (test 1.35 mmol/L 1.12-1.27 H code = 698) PH, BLOOD (BEAKER) (test code = 7.31 1810) Sodium Na-Stat [id number] 14:37:00 Test Item Value Reference Range Interpretation Comments Sodium (test code = 138 meq/L 387-041 0955-2) STAR (test code = STAR) Only if arterial line present. Lab Interpretation (test Normal code = 81099-7) [facility] California[facility]Stat [id number] 14:37:00 Test Item Value Reference Range Interpretation Comments Sodium (test code = 138 meq/L 593-949 4101-2) STAR (test code = STAR) Only if arterial line present. Lab Interpretation (test Normal code = 18640-5) [facility] CaliforniaODIUM NA-STAT [id number] 14:37:00 Test Item Value Reference Range Interpretation Comments SODIUM (BEAKER) (test code = 381) 138 meq/L 136-145 Only if arterial line present.POTASSIUM-STAT [id number] 14:37:00 Test Item Value Reference Range Interpretation Comments POTASSIUM (BEAKER) (test code = 3.5 meq/L 3.6-5.5 L 379) Only if arterial line present.ABORH, [id number] 09:19:00 Test Item Value Reference Range Interpretation Comments ABO Grouping (test code = 2588) O Rh Factor (test code = 2589) POS [facility] HospitalABORH, [id number] 09:19:00 Test Item Value Reference Range Interpretation Comments ABO Grouping (test code = 2588) O Rh Factor (test code = 2589) POS [facility] CaliforniaARS-COV2/RT-PCR ([facility])2020-07-16 14:33:00 Test Item Value Reference Range Interpretation Comments SARS-COV2/RT-PCR (test Negative Not Detected, Negative, code = 8876287) See external report for linked test SARS-COV-2 [facility] ([facility] code = 3988231) Negative result for this test determines that [...] 564(g) of the Act.Fact Sheet for Healthcare Providers:https://www.[employer]/sites/default/files/product/documents/Fact_Shee c_QO_Xehcvovgd_Ffnr_YCYF-UxO-3.pdfFact Sheet for Healthcare Patients:https://www.[employer]/sites/default/files/product/ documents/Pvnk_Zpeos_Ayhhprgo_Aspv_AXKQ-RkD-5.pdfPerforming Laboratory:[address] [place], [place] [address]Dwix and screen, automated ([facility])2020-07-16 10:31:00 Test Item Value Reference Range Interpretation Comments ABO/RH AUTOMATED (BEAKER) (test O POSITIVE code = 2260) Ab Scrn (test code = 890-4) NEGATIVE [facility]Type and screen, automated ([facility]) 2020-07-16 10:31:00 Test Item Value Reference Range Interpretation Comments ABO/RH AUTOMATED (BEAKER) (test O POSITIVE code = 2260) Ab Scrn (test code = 890-4) NEGATIVE [facility]
--- NOTE | 2021-03-19 13:28 | RAD REPORT ---
EXAM DESCRIPTION: RAD - Chest Single View - 03/19/2021 1:13 pm CLINICAL HISTORY: covid;Cough;COPD COMPARISON: Chest Single View dated 03/12/2021; Chest Single View dated 11/08/2020; Chest Single View da rory 09/21/2020; Chest Pa And Lat (2 Views) dated 09/20/2020 FINDINGS: Lines: None. Lungs: Mild prominence of the pulmonary interstitium which has improved from prior . Pleural: No significant pleural effusions or pneumothorax. Cardiac: Mild cardiomegaly. Bones: No acute fractures. Other: IMPRESSION: Mild improved aeration with decreased edema. No consolidative airspace disease.
[2021-03-19 13:48] LABS: Absolute Lymphocytes (CBC) 1.6 K/uL (0.7-4.9); Basophils % 0.7 % (0-1.3); Hematocrit 27.6 % (36.0-45.0); Lymphocytes % 21.8 % (15.3-44.8); MPV 7.8 fL (7.6-11.3); RBC Red Blood Cell Count 3.42 M/uL (3.86-4.86)
[2021-03-19] MEDS ORDERED: METHYLPREDNISOLONE 125 MG INJ ONE (14:03)
[2021-03-19] MEDS ORDERED: LEVALBUTEROL 1.25 MG/3 ML NEB ONE (14:03)
[2021-03-19] MEDS ORDERED: NA CHLORIDE 0.9% 500 ML ONE (14:03)
[2021-03-19 14:16] LABS: BUN Blood Urea Nitrogen 25 mg/dL (7-18); Bicarbonate 34 mmol/L (21-32); Ferritin 19.8 ng/mL (8-388); Glucose Level 98 mg/dL (74-106); Potassium 4.4 mmol/L (3.5-5.1); Sodium Level 142 mmol/L (136-145); Troponin (Emerg Dept Use Only) 0.05 ng/mL (0.0-0.045)
[2021-03-19 14:18] LABS: C-Reactive Protein < 2.90 mg/L (<3.00)
--- NOTE | 2021-03-19 15:44 | EDPHYS ---
Physician Documentation [facility] Name: Susana Jaffe Age: 71 yrs Sex: Female : 1950 Arrival Date: 03/19/2021 Time: 12:47 Bed 14 Private MD: ED Physician Osvaldo Hartley HPI: 03/19 13:02 This 71 yrs old Female presents to ER via Unassigned with complaints of sob. rn 13:02 The patient has shortness of breath at rest. rn 13:19 Onset: The symptoms/episode began/occurred 2 day(s) ago. Duration: The symptoms are rn continuous. The patient's shortness of breath is aggravated by exertion, light activity, talking, is alleviated by nebulizer treatment, application of supplemental oxygen. Associated signs and symptoms: Pertinent positives: non-productive cough, Pertinent negatives: fever, hemoptysis. Severity of symptoms: At their worst the symptoms were moderate in the emergency department the symptoms are unchanged. The patient has experienced similar episodes in the past. The patient has been recently seen by a physician: The patient has been recently been admitted at [facility]. Patient reports recently admitted and discharged for Covid pneumonia. Patient has COPD. Sent home on 3 L of oxygen. Today states symptoms have worsened and increased shortness of breath over the last 2 days. EMS states that on her 3 L of oxygen her O2 sat was in the mid to low 80s. Symptoms and oxygenation improved after albuterol and Atrovent treatment given by EMS. Denies chest pain.. Historical: - Allergies: 13:19 iodine ..; zb - Home Meds: 13:16 Albuterol Inhl [Active]; aspirin 81 mg Oral chew 1 tab once daily [Active]; zb atorvastatin 20 mg Oral tab 1 tab once daily [Active]; clopidogrel 75 mg Oral tab 1 tab once daily [Active]; fenofibrate 145 MG Oral once daily [Active]; furosemide 40 mg Oral tab 1 tab once daily [Active]; Furosemide Oral [Active]; Klor-Con 10 Oral [Active]; levothyroxine 25 mcg tab 1 tab once daily [Active]; Tramadol Oral [Active]; Vitamin C 500 mg Oral tab daily [Active]; metoprolol tartrate 25 mg Oral tab 1 tab once daily [Active]; - PMHx: 13:16 Cancer, Breast; Hyperlipidemia; Hypertension; Hypothyroidism; ruptured colon; zb - PSHx: 13:16 Appendectomy; back; Carotid endarterectomy; Cholecystectomy; colon resection; zb hysterectomy; left knee; mastectomy-left; rotator cuff; Thyroidectomy; Tonsillectomy; - Immunization history:: Adult Immunizations up to date, Client reports receiving the 2nd dose of the Covid vaccine, Date received: 2020. - Social history:: Smoking status: Patient/guardian denies using tobacco, but has a distant history of tobacco abuse. - Family history:: not pertinent. - Hospitalizations: : No recent hospitalization is reported. ROS: 13:19 Constitutional: Negative for fever, chills, and weight loss, Eyes: Negative for injury, rn pain, redness, and discharge, Neck: Negative for injury, pain, and swelling, Cardiovascular: Negative for chest pain, and edema, Respiratory: Negative for pleuritic chest pain Abdomen/GI: Negative for abdominal pain, nausea, vomiting, diarrhea, and constipation, Back: Negative for injury and pain, MS/Extremity: Negative for injury and deformity, Skin: Negative for injury, rash, and discoloration, Neuro: Negative for headache, numbness, tingling, and seizure. 13:19 All other systems are negative. Exam: 13:19 Constitutional: This is a well developed, well nourished patient who is awake, alert, rn mild to moderate tachypnea Head/Face: Normocephalic, atraumatic. Eyes: Periorbital areas with no swelling, redness, or edema. ENT: Dry mucous membranes, no stridor Cardiovascular: Tachycardic, irregular Respiratory: Moderate tachypnea with wheezing bilaterally, no retractions speaking 3-5 word sentences Abdomen/GI: Soft, non-tender Skin: Warm, dry, no cyanosis MS/ Extremity: Pulses equal, no cyanosis. Neuro: Awake and alert, GCS 15 Vital Signs: 12:49 BP 102 / 77; Pulse 150; Resp 35; Temp 97.3; Pulse Ox 100% on 3 lpm NC; Weight 99.79 kg; zb Height 5 ft. 6 in. (167.64 cm); Pain 0/10; 14:08 Pulse 145; Resp 32; Pulse Ox 92% on 3 lpm NC; zb 14:19 BP 134 / 102; Pulse 138; Resp 30; Pulse Ox 99% 3 lpm ; zb 15:40 Pulse 120; Resp 23; Pulse Ox 96% on 3 lpm NC; zb 17:00 BP 128 / 64; Pulse 124; Resp 21; Pulse Ox 96% on 3 lpm NC; zb 18:47 BP 117 / 66; Pulse 139; Resp 22; Pulse Ox 95% on 3 lpm NC; zb 19:30 BP 134 / 84; Pulse 114; Resp 24; Pulse Ox 97% 3 lpm ; zb 20:54 BP 135 / 72; Pulse 130; Resp 20; Pulse Ox 97% 3 lpm ; zb 12:49 Body Mass Index 35.51 (99.79 kg, 167.64 cm) zb MDM: 12:50 Patient medically screened. rn 15:38 Differential diagnosis: Bronchitis Chronic Obstructive Pulmonary Disease Myocardial rn Infarction pneumonia, Pneumothorax pulmonary edema, reactive airway disease. Data reviewed: vital signs, nurses notes, lab test result(s), radiologic studies, plain films, and as a result, I will admit patient. Data interpreted: monitor tech: rate is 135 beats/min, rhythm is atrial fibrillation, with no ectopy, Interpretation: atrial fibrillation, tachycardia, Pulse oximetry: on 5L(s) per nasal canula, is 93 %. Interpretation: acceptable, Plan: O2 by NC applied. Test interpretation: by ED physician or midlevel provider: ECG, plain radiologic studies, Chest x-ray with slightly improving aeration compared to last week's x-ray, no pneumothorax. Counseling: I had a detailed discussion with the patient and/or guardian regarding: the historical points, exam findings, and any diagnostic results supporting the discharge/admit diagnosis, lab results, radiology results, the need for further work-up and treatment in the hospital. Response to treatment: the patient's symptoms have mildly improved after treatment, and as a result, I will admit patient. Admission orders: after a detailed discussion of the patient's condition and case, the admit orders are written by me. ED course: Patient slowly improving, improving heart rate and oxygenation after steroids and breathing treatments. Pneumonia seems to be clearing. Today's problems seem to be more COPD exacerbation and A. fib with RVR. Still tachycardic with rate related ECG changes and mild elevation in troponin. Will admit to Dr. Salas for further care.. 03/19 12:51 Order name: BMP; Complete Time: 14:56 rn 03/19 12:51 Order name: Blood Culture Adult (2) rn 03/19 12:51 Order name: C-Reactive Protein; Complete Time: 14:56 rn 03/19 12:51 Order name: CBC with Diff rn 03/19 12:51 Order name: Ferritin; Complete Time: 14:56 rn 03/19 12:51 Order name: Lactate; Complete Time: 14:56 rn 03/19 12:51 Order name: Procalcitonin; Complete Time: 14:56 rn 03/19 12:51 Order name: Troponin (emerg Dept Use Only); Complete Time: 14:56 rn 03/19 16:28 Order name: Basic Metabolic Panel EDWY 03/19 16:28 Order name: Basic Metabolic Panel EDW[facility] 03/19 16:28 Order name: Basic Metabolic Panel [facility] 03/19 16:28 Order name: CBC with Automated Diff EDMS 03/19 16:28 Order name: CBC with Automated Diff EDMS 03/19 16:28 Order name: CBC with Automated Diff EDMS 03/19 12:51 Order name: CXR XRAY; Complete Time: 13:32 rn 03/19 12:51 Order name: EKG; Complete Time: 12:51 rn 03/19 12:51 Order name: Cardiac monitoring; Complete Time: 13:16 rn 03/19 12:51 Order name: Droplet/Contact Precautions; Complete Time: 13:16 rn 03/19 12:51 Order name: EKG - Nurse/Tech; Complete Time: 13:16 rn 03/19 12:51 Order name: IV Start; Complete Time: 14:20 rn 03/19 16:28 Order name: CBC with Automated Diff EDWY 03/19 16:47 Order name: COVID-19 : Document "Date of Symptom Onset" if Symptomatic. ss 03/19 19:48 Order name: CORONAVIRUS EDWY 03/19 19:59 Order name: CBC Smear Scan ED[facility] 03/19 21:14 Order name: SARS-COV-2 RT PCR ED[facility] 03/19 12:51 Order name: Labs collected and sent; Complete Time: 13:46 rn 03/19 12:51 Order name: O2 Per Protocol; Complete Time: 13:16 rn 03/19 12:51 Order name: O2 Sat Monitoring; Complete Time: 13:16 rn Administered Medications: 13:19 CANCELLED (tachycardicc): Albuterol 2.5 mg Inhalation once rn 13:47 Drug: Xopenex (levalbuterol) 1.25 mg Route: Inhalation; zb 14:20 Drug: SOLU-Medrol (methylPrednisoLONE) 125 mg Route: IVP; Site: left antecubital; zb 19:49 Follow up: Response: No adverse reaction zb 14:20 Drug: NS 0.9% 500 ml Route: IV; Rate: bolus; Site: left antecubital; zb 16:00 Follow up: Response: No adverse reaction; IV Status: Completed infusion; IV Intake: zb 500ml 14:29 Drug: Metoprolol 25 mg Route: PO; zb 23:30 Follow up: Response: No adverse reaction zb Disposition Summary: 03/19/21 15:43 Hospitalization Ordered Hospitalization Status: Inpatient Admission rn Provider: Tariq Salas rn Location: Telemetry/MedSurg (Inpatient) rn Condition: Stable rn Problem: an ongoing problem rn Symptoms: have improved rn Bed/Room Type: Standard rn Room Assignment: 421(03/19/21 19:13) mw Diagnosis - COPD/ Chronic obstructive pulmonary disease with (acute) exacerbation rn - Persistent atrial fibrillation rn - Supraventricular tachycardia rn - Hypoxemia rn Forms: - Medication Reconciliation Form rn - SBAR form rn Signatures: Dispatcher [employer] EDMS Bridget Garcia RN RN mw Nieto, Roman, MD MD rn Brown, Zipporah, RN RN zb Corrections: (The following items were deleted from the chart) 13:18 13:16 Home Meds: aspirin 81 mg Oral TbEC 1 tab once daily; zb zb 13:18 13:16 Home Meds: atorvastatin Oral; zb zb 13:18 13:16 Home Meds: fenofibrate Oral; zb zb 13:19 12:51 Albuterol 2.5 mg Inhalation once ordered. rn jorden 13:20 13:19 Allergies: Sulfa (Sulfonamide Antibiotics); zb zb 13:47 12:51 CBC+H.LAB.BRZ ordered. EDMS EDMS 19:13 15:43 jorden holland
--- NOTE | 2021-03-19 15:44 | ER ---
Nurse's Notes [facility] Name: Susana Jaffe Age: 71 yrs Sex: Female : 1950 Arrival Date: 03/19/2021 Time: 12:47 Bed 14 Private MD: Diagnosis: COPD/ Chronic obstructive pulmonary disease with (acute) exacerbation;Persistent atrial fibrillation;Supraventricular tachycardia;Hypoxemia Presentation: 03/19 12:49 Chief complaint: EMS states: patient started having covid sx 03/01/21. came in the the [facility] last week and was discharge last week on 3L NC. Coronavirus screen: Client presents with at least one sign or symptom that may indicate coronavirus-19. Standard/surgical mask placed on the client. Provider contacted for isolation considerations. Ebola Screen: Patient negative for fever greater than or equal to 101.5 degrees Fahrenheit, and additional compatible Ebola Virus Disease symptoms. Initial Sepsis Screen: Does the patient meet any 2 criteria? RR > 20 per min. Does the patient have a suspected source of infection? Yes: Productive cough/pneumonia. Risk Assessment: Do you want to hurt yourself or someone else? Patient reports no desire to harm self or others. Onset of symptoms was March 19, 2021. 12:49 Acuity: CINDY 3 12:49 Method Of Arrival: EMS: [facility] Triage Assessment: 13:20 General: Appears uncomfortable, Behavior is anxious. Pain: Denies pain. Neuro: Level of Consciousness is awake, alert, obeys commands, Oriented to person, place, time, situation. Cardiovascular: Patient's skin is warm and dry. Respiratory: Airway is patent Respiratory effort is labored, weak, using tripod position, Respiratory pattern is tachypnea Breath sounds are diminished Breath sounds with wheezes the patient has moderate shortness of breath. GI: Abdomen is. Derm: Skin is fragile, is thin, Skin is dry, Skin is normal. Musculoskeletal: Range of motion: intact in all extremities. Historical: - Allergies: 13:19 iodine ..; zb - Home Meds: 13:16 Albuterol Inhl [Active]; aspirin 81 mg Oral chew 1 tab once daily [Active]; zb atorvastatin 20 mg Oral tab 1 tab once daily [Active]; clopidogrel 75 mg Oral tab 1 tab once daily [Active]; fenofibrate 145 MG Oral once daily [Active]; furosemide 40 mg Oral tab 1 tab once daily [Active]; Furosemide Oral [Active]; Klor-Con 10 Oral [Active]; levothyroxine 25 mcg tab 1 tab once daily [Active]; Tramadol Oral [Active]; Vitamin C 500 mg Oral tab daily [Active]; metoprolol tartrate 25 mg Oral tab 1 tab once daily [Active]; - PMHx: 13:16 Cancer, Breast; Hyperlipidemia; Hypertension; Hypothyroidism; ruptured colon; zb - PSHx: 13:16 Appendectomy; back; Carotid endarterectomy; Cholecystectomy; colon resection; zb hysterectomy; left knee; mastectomy-left; rotator cuff; Thyroidectomy; Tonsillectomy; - Immunization history:: Adult Immunizations up to date, Client reports receiving the 2nd dose of the Covid vaccine, Date received: 2020. - Social history:: Smoking status: Patient/guardian denies using tobacco, but has a distant history of tobacco abuse. - Family history:: not pertinent. - Hospitalizations: : No recent hospitalization is reported. Screenin:57 Abuse screen: Denies threats or abuse. Denies injuries from another. Nutritional zb screening: No deficits noted. Tuberculosis screening: No symptoms or risk factors identified. Fall Risk None identified. Assessment: 13:20 Reassessment: notified ecp of increase heart rate in 140-150's. zb 13:54 Reassessment: Patient appears in no apparent distress at this time. patient remains on zb 3L NC. 14:36 Reassessment: Patient appears in no apparent distress at this time. patient zb repositioned. 15:38 Reassessment: Patient appears in no apparent distress at this time. patient remains zb aox4. RR 19-23. HR 110's -120's. denies chest pain. 16:30 Reassessment: Patient appears in no apparent distress at this time. Patient and/or zb family updated on plan of care and expected duration. Pain level reassessed. discussed care with patient . 17:30 Reassessment: Patient appears in no apparent distress at this time. Patient and/or zb family updated on plan of care and expected duration. Pain level reassessed. 18:30 Reassessment: Patient appears in no apparent distress at this time. Patient and/or zb family updated on plan of care and expected duration. Pain level reassessed. 19:07 Reassessment: Patient appears in no apparent distress at this time. Patient and/or zb family updated on plan of care and expected duration. Pain level reassessed. updated patient on plan of care. 19:11 Reassessment: 's number BETH# [phone]. zb Vital Signs: 12:49 BP 102 / 77; Pulse 150; Resp 35; Temp 97.3; Pulse Ox 100% on 3 lpm NC; Weight 99.79 kg; zb Height 5 ft. 6 in. (167.64 cm); Pain 0/10; 14:08 Pulse 145; Resp 32; Pulse Ox 92% on 3 lpm NC; zb 14:19 BP 134 / 102; Pulse 138; Resp 30; Pulse Ox 99% 3 lpm ; zb 15:40 Pulse 120; Resp 23; Pulse Ox 96% on 3 lpm NC; zb 17:00 BP 128 / 64; Pulse 124; Resp 21; Pulse Ox 96% on 3 lpm NC; zb 18:47 BP 117 / 66; Pulse 139; Resp 22; Pulse Ox 95% on 3 lpm NC; zb 19:30 BP 134 / 84; Pulse 114; Resp 24; Pulse Ox 97% 3 lpm ; zb 20:54 BP 135 / 72; Pulse 130; Resp 20; Pulse Ox 97% 3 lpm ; zb 12:49 Body Mass Index 35.51 (99.79 kg, 167.64 cm) zb ED Course: 12:47 Patient arrived in ED. eb 12:48 Virgie Soliman, RN is Primary Nurse. zb 12:50 Osvaldo Hartley MD is Attending Physician. rn 13:13 CXR XRAY In Process Unspecified. EDMS 13:16 Triage completed. zb 13:35 Initial lab(s) drawn, by ne, sent to lab. First set of blood cultures drawn EKG done, 5 by ED staff, reviewed by Osvaldo Hartley MD. 13:46 BMP Sent. mh5 13:46 Blood Culture Adult (2) Sent. mh5 13:46 C-Reactive Protein Sent. mh5 13:46 Ferritin Sent. mh5 13:46 Lactate Sent. mh5 13:47 Procalcitonin Sent. mh5 13:47 Troponin (emerg Dept Use Only) Sent. [facility] 13:47 Missed attempt(s): 22 gauge in right antecubital area. 5 13:48 Patient has correct armband on for positive identification. Placed in gown. Bed in low mh5 position. Call light in reach. Side rails up X2. Pillow given. manager monitoring on. Pulse ox on. NIBP on. 15:41 IV discontinued, infiltrated notified ecp and charge nurse. new IV placed by zulay car RN. Inserted saline lock: 22 gauge in left upper arm, using aseptic technique. 15:42 Tariq Salas MD is Hospitalizing Provider. rn 20:52 No provider procedures requiring assistance completed. Patient admitted, IV remains in zb place. 20:54 Arm band placed on. zb Administered Medications: 13:19 CANCELLED (tachycardicc): Albuterol 2.5 mg Inhalation once rn 13:47 Drug: Xopenex (levalbuterol) 1.25 mg Route: Inhalation; zb 14:20 Drug: SOLU-Medrol (methylPrednisoLONE) 125 mg Route: IVP; Site: left antecubital; zb 19:49 Follow up: Response: No adverse reaction zb 14:20 Drug: NS 0.9% 500 ml Route: IV; Rate: bolus; Site: left antecubital; zb 16:00 Follow up: Response: No adverse reaction; IV Status: Completed infusion; IV Intake: zb 500ml 14:29 Drug: Metoprolol 25 mg Route: PO; zb 23:30 Follow up: Response: No adverse reaction zb Intake: 16:00 IV: 500ml; Total: 500ml. zb Outcome: 15:43 Decision to Hospitalize by Provider. rn 20:52 Admitted to Med/surg accompanied by tech, via wheelchair, room 421, with oxygen, with zb chart, Report called to LINCOLN Matthew 20:52 Condition: stable 20:52 Instructed on the need for admit, Demonstrated understanding of instructions. 22:01 Patient left the ED. em Signatures: Dispatcher [employer] Jace Stauffer RN RN em Nieto, Roman, MD MD rn Martinez, [facility] Deanna Berry Zipporah, RN RN zb Corrections: (The following items were deleted from the chart) 13:18 13:16 Home Meds: aspirin 81 mg Oral TbEC 1 tab once daily; zulay biswas 13:18 13:16 Home Meds: atorvastatin Oral; zulay biswas 13:18 13:16 Home Meds: fenofibrate Oral; zulay biswas 13:20 13:19 Allergies: Sulfa (Sulfonamide Antibiotics); zulay biswas 13:47 13:46 CBC+H.LAB.BRZ drawn and sent. 5 EDOK 13:54 13:20 General: Appears zyolis biswas
--- NOTE | 2021-03-19 16:17 | P.HP ---
Certification for Inpatient Patient admitted to: Observation With expected LOS: <2 Midnights Patient will require the following post-hospital care: None Practitioner: I am a practitioner with admitting privileges, knowledge of patient current condition, hospital course, and medical plan of care. Services: Services provided to patient in accordance with Admission requirements found in Title 42 Section 412.3 of the Code of Federal Regulations Patient History Date of Service: 03/19/21 Reason for admission: copd exacerbation History of Present Illness: Patient is pleasant woman with a history of copd, cad, atrial fib. htn and hypothryoidism. She was diagnoised with covid pneumonia 15 days ago. She has a few rounds of sob. The patient was feeling sob last night. Came to the ER. Was found to be tachycardic. hypoxic at a 82% The patient was put on nassal oxygen. She is currently doing better. Though still tachycardic. ON her last admission she was seen by Dr. Shaver and discharged on coreg 12.5mg po bid. She tends to live in this tachcardic range. The patient is currently resting comfortable. However she is worried about getting short of breath again. Allergies iodine Allergy (Verified 06/30/20 15:31) Anaphylaxis/Hemorrhage/Hives Home Medications: Ascorbic Acid [Vitamin C*] 500 mg PO DAILY 09/21/20 Aspirin [Aspirin EC] 81 mg PO DAILY 09/21/20 Atorvastatin Calcium [Lipitor*] 20 mg PO BEDTIME 09/21/20 Clopidogrel Bisulfate [Plavix*] 75 mg PO DAILY 09/21/20 Fenofibrate [Tricor*] 145 mg PO DAILY 09/21/20 Alprazolam [Xanax] 0.5 mg PO BID PRN #30 tablet 11/09/20 Cyanocobalamin/Cobamamide [Vitamin B-12 5,000 Mcg Tab Sl] 1 each SL DAILY #30 tab.subl 11/09/20 Ferrous Sulfate [Ferrous Sulfate Elixir] 5 ml PO Q12H #300 ml 11/09/20 Folic Acid 1 mg PO DAILY #30 tablet 11/09/20 Metoprolol Tartrate [Lopressor*] 25 mg PO BID #60 tab 11/09/20 - Past Medical/Surgical History Diabetic: No -: Carotid artery disease -: HTN -: HLD -: breast cancer -: hypothyroidism -: mastectomy -: carotid endarterectomy -: back surgery -: right shoulder -: hysterectomy -: colon resection -: cholecystectomy -: appendectomy, thyroidectomy, tonsillectomy - Family History Mother -: Heart disease Father -: Diabetes, Cancer - Social History Alcohol use: No CD- Drugs: No Caffeine use: Yes Review of Systems 10-point ROS is otherwise unremarkable Respiratory: Shortness of Breath Physical Examination - Physical Exam General: Alert, In no apparent distress HEENT: Atraumatic, PERRLA, Mucous membr. moist/pink, EOMI, Sclerae nonicteric Neck: Supple, 2+ carotid pulse no bruit, No LAD, Without JVD or thyroid abnormality Respiratory: Clear to auscultation bilaterally, Normal air movement Cardiovascular: Regular rate/rhythm, Normal S1 S2 Gastrointestinal: Normal bowel sounds, No tenderness Musculoskeletal: No tenderness Integumentary: No rashes Neurological: Normal gait, Normal speech, Normal strength at 5/5 x4 extr, Normal tone, Normal affect Lymphatics: No axilla or inguinal lymphadenopathy - Studies Laboratory Data (last 24 hrs) 03/19/21 13:35: WBC 7.50 D, Hgb 8.9 L, Hct 27.6 L D, Plt Count 596 H D 03/19/21 13:35: Sodium 142, Potassium 4.4, BUN 25 H, Creatinine 1.00, Glucose 98 Assessment and Plan - Problems (Diagnosis) (1) COVID-19 Current Visit: No Status: Acute Plan: Patient is recovering from covid. She is most likely out of danger at 15 days. At this point the patient is not in danger. However having residual fatigue and sob is to be expected. Will start her on a short course of steroids. Will use oral prednisone . Will keep her overnight. If the patient is improving we can discharge her home. (2) COPD (chronic obstructive pulmonary disease) Current Visit: Yes Status: Acute Plan: stable. Will avoid nebulizers in the patient as it endangers the staff. If she needs we can give her albuterol via a MDI. steroids should keep her under control Qualifiers: COPD type: chronic bronchitis (3) SVT (supraventricular tachycardia) Current Visit: No Status: Chronic Plan: stable. Mild elevation in troponins. As stated in the history she has been evaluated by Cardiology. During her last admission she was in the 100's and was difficult to control. This is a chronic problem. (4) Hypertension Current Visit: No Status: Chronic Plan: continue home meds. Adjust as necessary. Qualifiers: Hypertension type: primary hypertension Qualified Code(s): I10 - Essential (primary) hypertension Discharge Plan: Home Plan to discharge in: 24 Hours - Advance Directives Does patient have a Living Will: Yes Does patient have a Durable POA for Healthcare: Yes - Code Status/Comfort Care Code Status Assessed: No Code Status: Full Code Physician Review: Patient Assessed, Agree with Above Assessment and Plan Critical Care: No Time Spent Managing Pts Care (In Minutes): 45
[2021-03-19] MEDS ORDERED: ALPRAZOLAM 0.5 MG TABLET PO PRN (16:25)
[2021-03-19] MEDS: carvediloL 12.5 MG TAB PO SCH (18:00)
[2021-03-19 19:59] LABS: Blood Morphology Comment NOTED (NOT SEEN); Platelet Estimate INCR; Polychromasia SLIGHT; White Blood Cell Scan OK (OK)
[2021-03-19] MEDS ORDERED: ATORVASTATIN 20 MG TAB PO SCH (21:00)
[2021-03-19 22:53] VITALS: BMI 35.5
[2021-03-20] MEDS: carvediloL 12.5 MG TAB PO SCH (05:30)
[2021-03-20 06:15] LABS: Basophils % 0.1 % (0-1.3); Hematocrit 26.9 % (36.0-45.0); Lymphocytes % 14.3 % (15.3-44.8); MPV 7.9 fL (7.6-11.3); RBC Red Blood Cell Count 3.35 M/uL (3.86-4.86)
[2021-03-20 06:34] LABS: Potassium 3.5 mmol/L (3.5-5.1)
[2021-03-20] MEDS ORDERED: PNEUMOCOCCAL VACCINE 0.5 ML IMVAC ONE (07:00)
[2021-03-20 08:23] VITALS: BP 95/50
[2021-03-20] MEDS ORDERED: ASCORBIC ACID 500 MG TABLET PO SCH (09:00)
[2021-03-20] MEDS ORDERED: FOLIC ACID 1 MG TABLET PO SCH (09:00)
[2021-03-20] MEDS ORDERED: CYANOCOBALAMIN 1,000 MCG TAB SL SCH (09:00)
[2021-03-20] MEDS ORDERED: ASPIRIN EC 81 MG TAB PO SCH (09:00)
[2021-03-20 11:45] VITALS: O2SAT 96
[2021-03-20 12:12] VITALS: TEMP 96.9
== END 2021-03-20 13:30 | disposition home or self-care (01) ==
LOC: ER 12:31 → ERHOLD 16:37 → 4TH 21:06
PROVIDERS: ADMIT Internal Medicine; ATTEND Internal Medicine
DX: U07.1 COVID-19 (principal); J44.9 Chronic obstructive pulmonary disease, unspecified; I47.1 Supraventricular tachycardia; I10 Essential (primary) hypertension; R09.02 Hypoxemia; I48.19 Other persistent atrial fibrillation; I25.10 Atherosclerotic heart disease of native coronary artery without angina pectoris; E03.9 Hypothyroidism, unspecified; E78.5 Hyperlipidemia, unspecified; I77.9 Disorder of arteries and arterioles, unspecified; Z79.02 Long term (current) use of antithrombotics/antiplatelets; Z79.82 Long term (current) use of aspirin; Z91.041 Radiographic dye allergy status; Z85.3 Personal history of malignant neoplasm of breast; Z90.12 Acquired absence of left breast and nipple; Z90.49 Acquired absence of other specified parts of digestive tract; Z90.710 Acquired absence of both cervix and uterus; Z82.49 Family history of ischemic heart disease and other diseases of the circulatory system; Z83.3 Family history of diabetes mellitus; Z80.9 Family history of malignant neoplasm, unspecified
CPT/HCPCS: 96361; 93005; 87040 ×2; 85025 ×2; 80048 ×2; 36415; 83605; 84484; 82728; 84145; 86140; 71045; 96374; 99285; U0003; J7040; J2930; G0378 ×2

== ENCOUNTER 2021-04-02 05:21 | Inpatient (IN) | payer OTHER ==
[2021-04-02] MEDS ORDERED: METOPROLOL TARTRATE 5 MG/5 ML INJ IV ONE ×2 (06:01→12:31)
[2021-04-02] MEDS ORDERED: NA CHLORIDE 0.9% 500 ML ONE ×3 (06:01→10:19)
[2021-04-02 06:08] LABS: Absolute Lymphocytes (CBC) 1.5 K/uL (0.7-4.9); Basophils % 1.4 % (0-1.3); Hematocrit 22.5 % (36.0-45.0); Lymphocytes % 19.9 % (15.3-44.8); MPV 7.5 fL (7.6-11.3); RBC Red Blood Cell Count 2.83 M/uL (3.86-4.86)
[2021-04-02 06:11] LABS: Protime INR 1.05
[2021-04-02 06:29] LABS: ALT/SGPT 13 U/L (12-78); AST/SGOT 15 U/L (15-37); Albumin 3.1 g/dL (3.4-5.0); Alkaline Phosphatase 66 U/L (45-117); BUN Blood Urea Nitrogen 13 mg/dL (7-18); Bicarbonate 27 mmol/L (21-32); Bilirubin Direct 0.1 mg/dL (0-0.2); Bilirubin Total 0.4 mg/dL (0.2-1.0); Glucose Level 131 mg/dL (74-106); Magnesium 1.8 mg/dL (1.8-2.4); NT PRO-BNP 1023 pg/mL (<125); Potassium 3.7 mmol/L (3.5-5.1); Protein, Total 6.3 g/dL (6.4-8.2); Sodium Level 144 mmol/L (136-145); Troponin (Emerg Dept Use Only) < 0.02 ng/mL (0.0-0.045)
[2021-04-02] MEDS ORDERED: MORPHINE 2 MG/ML SYR ONE (06:41)
[2021-04-02] MEDS ORDERED: ONDANSETRON 4 MG/2 ML VIAL ONE ×2 (06:53→09:30)
[2021-04-02] MEDS ORDERED: HYDROMORPHONE HCL 2 MG/ML inj ONE (08:30)
--- NOTE | 2021-04-02 09:54 | EDPHYS ---
Physician Documentation [facility] Name: Susana Jaffe Age: 71 yrs Sex: Female : 1950 Arrival Date: 04/02/2021 Time: 05:23 Bed 5 Private MD: ED Physician Anish Mcdonnell HPI: 04/02 05:38 This 71 yrs old Female presents to ER via EMS with complaints of Chest Pain. [facility] 05:38 The patient or guardian reports chest pain that is located primarily in the substernal mh7 area. Onset: last night, at 22:00. The pain does not radiate. Associated signs and symptoms: Pertinent positives: palpitations, shortness of breath, Pertinent negatives: abdominal pain, cough, diaphoresis, dizziness, headache, lower extremity pain, lower extremity swelling, lightheadedness, nausea, near syncope, recent travel, syncope, vomiting. The chest pain is described as a pressure. Duration: The patient or guardian reports multiple episodes, that are intermittent, that wax and wane, with no pattern. Modifying factors: The symptoms are alleviated by nothing. the symptoms are aggravated by nothing. Severity of pain: At its worst the pain was moderate last night, in the emergency department the pain is unchanged. EMS care prior to arrival includes: saline lock. Historical: - Allergies: 05:30 iodine ..; ea - Home Meds: 05:30 Albuterol Inhl [Active]; aspirin 81 mg Oral chew 1 tab once daily [Active]; ea atorvastatin 20 mg Oral tab 1 tab once daily [Active]; clopidogrel 75 mg Oral tab 1 tab once daily [Active]; fenofibrate 145 MG Oral once daily [Active]; furosemide 40 mg Oral tab 1 tab once daily [Active]; Furosemide Oral [Active]; levothyroxine 25 mcg tab 1 tab once daily [Active]; metoprolol tartrate 25 mg Oral tab 1 tab once daily [Active]; Tramadol Oral [Active]; Vitamin C 500 mg Oral tab daily [Active]; 05:56 Klor-Con 10 20 meq Oral 1 tab once daily [Active]; dulera as needed [Active]; ea - PMHx: 05:30 Cancer, Breast; Hyperlipidemia; Hypertension; Hypothyroidism; ruptured colon; ea - PSHx: 05:30 Appendectomy; back; Carotid endarterectomy; colon resection; Cholecystectomy; left ea knee; mastectomy-left; rotator cuff; hysterectomy; Thyroidectomy; Tonsillectomy; - Immunization history:: Adult Immunizations up to date. - Social history:: Smoking status: unknown. ROS: 05:38 Constitutional: Negative for fever, chills, and weight loss, Eyes: Negative for injury, mh7 pain, redness, and discharge, ENT: Negative for injury, pain, and discharge, Neck: Negative for injury, pain, and swelling, Abdomen/GI: Negative for abdominal pain, nausea, vomiting, diarrhea, and constipation, Back: Negative for injury and pain, : Negative for injury, bleeding, discharge, and swelling, MS/Extremity: Negative for injury and deformity, Skin: Negative for injury, rash, and discoloration, Neuro: Negative for headache, weakness, numbness, tingling, and seizure, Psych: Negative for depression, anxiety, suicide ideation, homicidal ideation, and hallucinations, Allergy/Immunology: Negative for hives, rash, and allergies, Endocrine: Negative for neck swelling, polydipsia, polyuria, polyphagia, and marked weight changes, Hematologic/Lymphatic: Negative for swollen nodes, abnormal bleeding, and unusual bruising. Exam: 05:38 Constitutional: This is a well developed, well nourished patient who is awake, alert, mh7 and in no acute distress. Head/Face: Normocephalic, atraumatic. Eyes: Pupils equal round and reactive to light, extra-ocular motions intact. Lids and lashes normal. Conjunctiva and sclera are non-icteric and not injected. Cornea within normal limits. Periorbital areas with no swelling, redness, or edema. Neck: Trachea midline, no thyromegaly or masses palpated, and no cervical lymphadenopathy. Supple, full range of motion without nuchal rigidity, or vertebral point tenderness. No Meningismus. Chest/axilla: Normal chest wall appearance and motion. Nontender with no deformity. No lesions are appreciated. 05:38 Abdomen/GI: Soft, non-tender, with normal bowel sounds. No distension or tympany. No guarding or rebound. No evidence of tenderness throughout. Back: No spinal tenderness. No costovertebral tenderness. Full range of motion. Skin: Warm, dry with normal turgor. Normal color with no rashes, no lesions, and no evidence of cellulitis. MS/ Extremity: Pulses equal, no cyanosis. Neurovascular intact. Full, normal range of motion. Neuro: Awake and alert, GCS 15, oriented to person, place, time, and situation. Cranial nerves II-XII grossly intact. Motor strength 5/5 in all extremities. Sensory grossly intact. Cerebellar exam normal. Normal gait. Psych: Awake, alert, with orientation to person, place and time. Behavior, mood, and affect are within normal limits. 05:38 Cardiovascular: Rate: tachycardic, Rhythm: irregularly irregular, Pulses: no pulse deficits are appreciated, Heart sounds: normal, normal S1and S2, Edema: is not appreciated, JVD: is not appreciated. 05:38 Respiratory: the patient does not display signs of respiratory distress, Respirations: normal, Breath sounds: rhonchi, that are mild, are scattered, Respiratory rate: 20 Vital Signs: 05:26 BP 102 / 68; Pulse 150; Resp 22; Temp 98.6; Pulse Ox 98% on R/A; ea 05:33 Weight 92.99 kg; Height 5 ft. 6 in. (167.64 cm); mw2 06:00 BP 88 / 49; Pulse 120; Resp 22; Pulse Ox 98% on 2 lpm NC; ea 06:14 BP 93 / 43; Pulse 110; Resp 20; Pulse Ox 97% on 2 lpm NC; ea 06:47 BP 86 / 49; Pulse 126; Resp 22; Pulse Ox 100% on 2 lpm NC; ea 08:15 BP 92 / 50; Pulse 117; Resp 20; Pulse Ox 100% on 2 lpm NC; Pain 8/10; ch5 09:00 BP 113 / 78; Pulse 138; Resp 19; Pulse Ox 100% ; sv 09:44 BP 117 / 76; Pulse 123; Resp 20; Pulse Ox 98% on 2 lpm NC; ch5 10:44 BP 115 / 65; Pulse 84; Resp 20; Pulse Ox 96% ; kg 11:30 BP 133 / 103; Pulse 133; Resp 20; Pulse Ox 97% ; kg 12:15 BP 89 / 48; Pulse 96; Resp 20; Pulse Ox 93% ; kg 05:33 Body Mass Index 33.09 (92.99 kg, 167.64 cm) mw2 MDM: 09:45 ED course: Patient needs to be admitted for A. fib with RVR, anemia, tachycardia her pa2 heart rate has improved from 1 40-1 25 with IV fluid. She is pending transfusion of packed RBC. I called Dr. Salas to request admission. And left a voice not waiting for Dr. Salas callback.. 09:51 Differential diagnosis: abnormal EKG, anxiety, coronary artery disease stable angina. ma2 The patient was given aspirin in the Emergency Department. Data reviewed: vital signs, nurses notes, EMS record, lab test result(s), EKG, radiologic studies. Counseling: I had a detailed discussion with the patient and/or guardian regarding: the historical points, exam findings, and any diagnostic results supporting the discharge/admit diagnosis, the presence of at least one elevated blood pressure reading (>120/80) during this emergency department visit, the need for outpatient follow up. 09:53 Patient medically screened. [facility] 04/02 05:31 Order name: Basic Metabolic Panel; Complete Time: 08:42 [facility] 04/02 05:31 Order name: CBC with Diff; Complete Time: 06:31 [facility] 04/02 05:31 Order name: LFT's; Complete Time: 08:42 [facility] 04/02 05:31 Order name: Magnesium; Complete Time: 08:42 [facility] 04/02 05:31 Order name: NT PRO-BNP; Complete Time: 08:42 [facility] 04/02 05:31 Order name: PT-INR; Complete Time: 08:42 [facility] 04/02 05:31 Order name: Troponin (emerg Dept Use Only); Complete Time: 08:42 [facility] 04/02 06:37 Order name: PRBC [facility] 04/02 06:38 Order name: ABO/RH typing [facility] 04/02 06:38 Order name: Antibody Screen [facility] 04/02 05:31 Order name: XRAY Chest (1 view) [facility] 04/02 07:10 Order name: SARS-COV-2 RT PCR; Complete Time: 07:14 [facility] 04/02 07:13 Order name: D-Dimer; Complete Time: 08:42 [facility] 04/02 07:13 Order name: Thyroid Stimulating Hormone; Complete Time: 08:42 [facility] 04/02 09:57 Order name: Troponin I [facility] 04/02 12:38 Order name: Hemoglobin eb 04/02 12:38 Order name: Hematocrit eb 04/02 05:31 Order name: EKG; Complete Time: 05:32 [facility] 04/02 05:31 Order name: Cardiac monitoring; Complete Time: 05:55 [facility] 04/02 05:31 Order name: EKG - Nurse/Tech; Complete Time: 05:55 [facility] 04/02 05:31 Order name: IV Saline Lock; Complete Time: 05:55 [facility] 04/02 05:31 Order name: Labs collected and sent; Complete Time: 05:55 [facility] 04/02 05:31 Order name: O2 Per Protocol; Complete Time: 05:55 [facility] 04/02 05:31 Order name: O2 Sat Monitoring; Complete Time: 05:55 [facility] 04/02 06:39 Order name: Transfuse; Complete Time: 11:02 [facility] 04/02 09:57 Order name: 60g Consistent Carbohydrate (ADA 1800) [facility] 04/02 09:57 Order name: EKG Electrocardiogram [facility] 04/02 09:57 Order name: EKG Electrocardiogram [facility] 04/02 09:57 Order name: EKG Electrocardiogram [facility] 04/02 09:57 Order name: EKG Electrocardiogram EDMS Administered Medications: 05:50 Drug: Lopressor (metoprolol) 5 mg Route: IVP; Site: right antecubital; ea 05:50 Drug: NS 0.9% 500 ml Route: IV; Rate: bolus; Site: right antecubital; ea 06:46 Follow up: IV Status: Completed infusion; IV Intake: 500ml ea 05:54 Drug: Lopressor (metoprolol) 5 mg Route: IVP; Site: right antecubital; mr2 06:14 Drug: NS 0.9% 500 ml Route: IV; Rate: bolus; Site: right antecubital; ea 06:46 Follow up: IV Status: Completed infusion; IV Intake: 500ml ea 06:33 Drug: Lopressor (metoprolol) 5 mg Route: IVP; Site: right antecubital; ea 06:47 Follow up: Response: Blood pressure is lowered ea 06:49 Drug: Zofran (Ondansetron) 4 mg Route: IVP; Site: right antecubital; mr2 09:47 Follow up: Response: Nausea is decreased ch5 06:49 Drug: morphine 2 mg Route: IVP; Site: right antecubital; mr2 09:48 Follow up: Response: Pain is decreased ch5 07:45 Drug: Zofran (Ondansetron) 4 mg Route: IVP; Site: right antecubital; ch5 12:29 Follow up: Response: No adverse reaction kg 08:14 Drug: Dilaudid (HYDROmorphone) 1 mg Route: IVP; Site: right antecubital; ch5 09:48 Follow up: Response: Pain is decreased ch5 09:13 Drug: Zofran (Ondansetron) 4 mg Route: IVP; Site: right antecubital; ch5 09:48 Follow up: Response: Nausea is decreased ch5 11:30 Drug: Phenergan (promethazine) 25 mg Route: IVP; Site: right antecubital; ch5 12:30 Follow up: Response: No adverse reaction kg Disposition Summary: 04/02/21 09:53 Hospitalization Ordered Hospitalization Status: Inpatient Admission ma2 Provider: Tariq Salas Location: Telemetry/[facility]Sur (Inpatient) ma2 Condition: Stable ma2 Problem: new ma2 Symptoms: are unchanged ma2 Bed/Room Type: Standard pa2 Room Assignment: 230(04/02/21 11:15) Diagnosis - Unspecified atrial fibrillation - with tachycardia ma2 - Anemia, unspecified ma2 - Chest pain, unspecified ma2 Discharge Instructions: - Discharge Summary Sheet ll1 Forms: - Medication Reconciliation Form ma2 - SBAR form ll1 Signatures: Dispatcher [employer] EDDebbie Monzon RN RN Martina Vasquez RN RN Alia Miller RN RN ea Alzahri, Mohammad, MD MD ma2 Anish Mcdonnell MD MD 7 Praveen Pryor RN RN ch5 Marc Lau Mike, RN RN mr2 Hannah Valadez RN kg Corrections: (The following items were deleted from the chart) 06:00 05:30 Home Meds: Klor-Con 10 Oral; ea ea 06:00 05:56 Allergies: Dulera; ea ea 06:18 05:53 CORONAVIRUS+MR.LAB.BRZ ordered. EDMS EDMS 07:13 06:38 TYPE AND SCREEN+BB.LAB.BRZ ordered. EDMS EDMS 07: 06:42 THYROID STIMULAT HORMONE+C.LAB.BRZ ordered. EDMS EDMS 07: 07:05 D-DIMER+COAG.LAB.BRZ ordered. EDMS EDMS : 08:43 Chest For PE Angio+CT.RAD.BRZ ordered. EDMS EDMS 11:15 09:53 ma2 ss
--- NOTE | 2021-04-02 09:54 | ER ---
Nurse's Notes [facility] Name: Susana Jaffe Age: 71 yrs Sex: Female : 1950 Arrival Date: 04/02/2021 Time: 05:23 Bed 5 Private MD: Diagnosis: Unspecified atrial fibrillation-with tachycardia;Anemia, unspecified;Chest pain, unspecified Presentation: 04/02 05:26 Chief complaint: EMS states: Reports chest pain that started at 10 PM, reports she ea feels worse now than earlier. EMS reported A fib RVR on 12 lead HR between 80 to 150. Coronavirus screen: At this time, the client does not indicate any symptoms associated with coronavirus-19. Ebola Screen: No symptoms or risks identified at this time. Initial Sepsis Screen: Does the patient meet any 2 criteria? No. Patient's initial sepsis screen is negative. Does the patient have a suspected source of infection? No. Patient's initial sepsis screen is negative. Risk Assessment: Do you want to hurt yourself or someone else? Patient reports no desire to harm self or others. Onset of symptoms was April 02, 2021. 05:26 Method Of Arrival: EMS: [facility] 05:26 Acuity: CINDY 3 ea 06:05 Note Lopressor 5mg x 1 given with 500ml NS bolus. BP now 88/49. Provider notified. ea Historical: - Allergies: 05:30 iodine ..; ea - Home Meds: 05:30 Albuterol Inhl [Active]; aspirin 81 mg Oral chew 1 tab once daily [Active]; ea atorvastatin 20 mg Oral tab 1 tab once daily [Active]; clopidogrel 75 mg Oral tab 1 tab once daily [Active]; fenofibrate 145 MG Oral once daily [Active]; furosemide 40 mg Oral tab 1 tab once daily [Active]; Furosemide Oral [Active]; levothyroxine 25 mcg tab 1 tab once daily [Active]; metoprolol tartrate 25 mg Oral tab 1 tab once daily [Active]; Tramadol Oral [Active]; Vitamin C 500 mg Oral tab daily [Active]; 05:56 Klor-Con 10 20 meq Oral 1 tab once daily [Active]; dulera as needed [Active]; ea - PMHx: 05:30 Cancer, Breast; Hyperlipidemia; Hypertension; Hypothyroidism; ruptured colon; ea - PSHx: 05:30 Appendectomy; back; Carotid endarterectomy; colon resection; Cholecystectomy; left ea knee; mastectomy-left; rotator cuff; hysterectomy; Thyroidectomy; Tonsillectomy; - Immunization history:: Adult Immunizations up to date. - Social history:: Smoking status: unknown. Screenin:29 Abuse screen: Denies threats or abuse. Nutritional screening: No deficits noted. ea Tuberculosis screening: No symptoms or risk factors identified. Fall Risk IV access (20 points). Assessment: 05:35 General: Appears in no apparent distress. Behavior is calm, cooperative, appropriate ea for age. Pain: Complains of pain in chest Pain radiates to left arm. Pain: Quality of pain is described as tingling. Neuro: Level of Consciousness is awake, alert, obeys commands, Oriented to person, place, time. Cardiovascular: Patient's skin is warm and dry. Respiratory: Airway is patent Respiratory effort is even, unlabored, Respiratory pattern is regular, symmetrical. Derm: Skin is dry, Skin is pale, Skin temperature is warm. 09:44 Reassessment: No changes from previously documented assessment. Reassessment: Denies ch5 needs. 12:39 Pain:. kg Vital Signs: 05:26 BP 102 / 68; Pulse 150; Resp 22; Temp 98.6; Pulse Ox 98% on R/A; ea 05:33 Weight 92.99 kg; Height 5 ft. 6 in. (167.64 cm); mw2 06:00 BP 88 / 49; Pulse 120; Resp 22; Pulse Ox 98% on 2 lpm NC; ea 06:14 BP 93 / 43; Pulse 110; Resp 20; Pulse Ox 97% on 2 lpm NC; ea 06:47 BP 86 / 49; Pulse 126; Resp 22; Pulse Ox 100% on 2 lpm NC; ea 08:15 BP 92 / 50; Pulse 117; Resp 20; Pulse Ox 100% on 2 lpm NC; Pain 8/10; ch5 09:00 BP 113 / 78; Pulse 138; Resp 19; Pulse Ox 100% ; sv 09:44 BP 117 / 76; Pulse 123; Resp 20; Pulse Ox 98% on 2 lpm NC; ch5 10:44 BP 115 / 65; Pulse 84; Resp 20; Pulse Ox 96% ; kg 11:30 BP 133 / 103; Pulse 133; Resp 20; Pulse Ox 97% ; kg 12:15 BP 89 / 48; Pulse 96; Resp 20; Pulse Ox 93% ; kg 05:33 Body Mass Index 33.09 (92.99 kg, 167.64 cm) 2 ED Course: 05:23 Patient arrived in ED. ea 05:26 Anish Mcdonnell MD is Attending Physician. [facility] 05:29 Triage completed. ea 05:29 Patient maintains SpO2 saturation greater than 95% on room air. ea 05:29 Patient has correct armband on for positive identification. Placed in gown. Bed in low ea position. Call light in reach. Side rails up X2. environmental monitoring specialist on. Pulse ox on. 05:30 Patient placed in an exam room, on a stretcher, on pulse oximetry. ea 05:34 Alia Miller RN is Primary Nurse. ea 05:40 Maintain EMS IV. Dressing intact. Good blood return noted. Site clean \T\ dry. Gauge \T\ ea site: 22 G left wrist . 06:06 Inserted saline lock: 18 gauge in right antecubital area, using aseptic technique. ea 06:06 No provider procedures requiring assistance completed. ea 07:18 Primary Nurse role handed off by Alia Miller RN ch5 07:18 Praveen Pryor RN is Primary Nurse. ch5 07:36 XRAY Chest (1 view) In Process Unspecified. EDMS 09:53 Tariq Salas MD is Hospitalizing Provider. ma2 Administered Medications: 05:50 Drug: Lopressor (metoprolol) 5 mg Route: IVP; Site: right antecubital; ea 05:50 Drug: NS 0.9% 500 ml Route: IV; Rate: bolus; Site: right antecubital; ea 06:46 Follow up: IV Status: Completed infusion; IV Intake: 500ml ea 05:54 Drug: Lopressor (metoprolol) 5 mg Route: IVP; Site: right antecubital; mr2 06:14 Drug: NS 0.9% 500 ml Route: IV; Rate: bolus; Site: right antecubital; ea 06:46 Follow up: IV Status: Completed infusion; IV Intake: 500ml ea 06:33 Drug: Lopressor (metoprolol) 5 mg Route: IVP; Site: right antecubital; ea 06:47 Follow up: Response: Blood pressure is lowered ea 06:49 Drug: Zofran (Ondansetron) 4 mg Route: IVP; Site: right antecubital; mr2 09:47 Follow up: Response: Nausea is decreased ch5 06:49 Drug: morphine 2 mg Route: IVP; Site: right antecubital; mr2 09:48 Follow up: Response: Pain is decreased ch5 07:45 Drug: Zofran (Ondansetron) 4 mg Route: IVP; Site: right antecubital; ch5 12:29 Follow up: Response: No adverse reaction kg 08:14 Drug: Dilaudid (HYDROmorphone) 1 mg Route: IVP; Site: right antecubital; ch5 09:48 Follow up: Response: Pain is decreased ch5 09:13 Drug: Zofran (Ondansetron) 4 mg Route: IVP; Site: right antecubital; ch5 09:48 Follow up: Response: Nausea is decreased ch5 11:30 Drug: Phenergan (promethazine) 25 mg Route: IVP; Site: right antecubital; ch5 12:30 Follow up: Response: No adverse reaction kg Intake: 06:46 IV: 500ml; Total: 500ml. ea 06:46 IV: 500ml; Total: 1000ml. ea Outcome: 09:53 Decision to Hospitalize by Provider. [facility] 12:38 Admitted to Med/surg accompanied by tech, via wheelchair, room 230, Report called to logan March RN called report to Med-costume design teacher 12:38 Condition: stable 12:38 Instructed on the need for admit. 12:39 Patient left the ED. kg Signatures: Dispatcher [employer] EDMS Debbie Abraham RN Alia Do RN RN ea Alzahri, Mohammad, MD MD ma2 [place], MyKena 2 Anish Mcdonnell MD MD 7 Hannah Valadez RN RN Praveen Pryor RN RN ch5 Je May RN RN mr2 Corrections: (The following items were deleted from the chart) 05:35 05:26 BP 102 / 68; Pulse 150bpm; Resp 22bpm; Pulse Ox 98% RA; Temp 98.6F; 81.65 kg; ea Height 5 ft.; BMI: 35.1; philip 06: 05:30 Home Meds: Klor-Con 10 Oral; philip 06: 05:56 Allergies: Dulera; philip 06:18 06:04 CORONAVIRUS+MR.LAB.BRZ drawn and sent. philip EDMS
[2021-04-02] MEDS ORDERED: ONDANSETRON 4 MG/2 ML VIAL IV PRN (09:55)
[2021-04-02] MEDS ORDERED: MORPHINE 4 MG/ML SYR IV PRN (09:55)
--- NOTE | 2021-04-02 09:59 | RAD REPORT ---
EXAM DESCRIPTION: RAD - Chest Single View - 04/02/2021 7:36 am CLINICAL HISTORY: CHEST PAIN Chest pain. COMPARISON: Chest Single View dated 03/19/2021; Chest Single View dated 03/12/2021; Chest Single View d ated 11/08/2020; Chest Single View dated 09/21/2020 FINDINGS: Portable technique limits examination quality. Mild pulmonary edema pattern is noted. The heart mildly size. No displaced fractures.Aortic atheroscl erosis. IMPRESSION: Mild CHF.
[2021-04-02] MEDS ORDERED: PROMETHAZINE INJ 25 MG/ML AMP ONE (10:46)
[2021-04-02 12:52] LABS: Hematocrit 27.8 % (36.0-45.0)
[2021-04-02 13:34] VITALS: BMI 33.2
[2021-04-02] MEDS ORDERED: DIGOXIN 0.25 MG/ML AMP IV ONE (19:14)
[2021-04-02] MEDS ORDERED: ALPRAZOLAM 0.5 MG TABLET PO PRN (19:16)
[2021-04-02] MEDS ORDERED: MORPHINE 2 MG/ML SYR IV PRN (19:54)
[2021-04-02] MEDS: METOPROLOL TAR 25 MG TAB PO SCH (20:10)
[2021-04-02] MEDS: ATORVASTATIN 20 MG TAB PO SCH (20:29)
[2021-04-02] MEDS ORDERED: METOPROLOL TAR 25 MG TAB PO SCH (21:00)
--- NOTE | 2021-04-02 21:46 | P.HP ---
Certification for Inpatient Patient admitted to: Inpatient With expected LOS: <2 Midnights Patient will require the following post-hospital care: None Practitioner: I am a practitioner with admitting privileges, knowledge of patient current condition, hospital course, and medical plan of care. Services: Services provided to patient in accordance with Admission requirements found in Title 42 Section 412.3 of the Code of Federal Regulations Patient History Date of Service: 04/02/21 Primary Care Provider: Dr. Ruano Reason for admission: Atypical Chest Pain R/T Anemia History of Present Illness: Chest Single View - 04/02/2021 7:36 am CLINICAL HISTORY: CHEST PAIN COMPARISON: Chest Single View dated 03/19/2021; Chest Single View dated 03/12/2021; Chest Single View dated 11/08/2020; Chest Single View dated 09/21/2020 FINDINGS: Mild pulmonary edema pattern is noted. The heart mildly size. No displaced fractures.Aortic atherosclerosis. IMPRESSION: Mild CHF. 71-year-old white female who developed chest pain at approximately 10 PM last night. The pain was described by the patient as dull and mashing. At about 5:30 in the morning the pain was rated at 8/10. Since there was no apparent resolution she decided to come to the emergency room. She notes that she has had several episodes similar to this. Labs are as follow. Hemoglobin 7.0, Hematocrit 22.5. The patient has a BNP of 1023. Total protein albumin and albumin globulin ratio are mildly low. Her GFR is also low at 43. Glucose slightly elevated at 131. Troponin is negative. Allergies iodine Allergy (Verified 06/30/20 15:31) Anaphylaxis/Hemorrhage/Hives Home medications list reviewed: Yes Home Medications: Ascorbic Acid [Vitamin C*] 500 mg PO DAILY 09/21/20 Aspirin [Aspirin EC] 81 mg PO DAILY 09/21/20 Atorvastatin Calcium [Lipitor*] 20 mg PO BEDTIME 09/21/20 Clopidogrel Bisulfate [Plavix*] 75 mg PO DAILY 09/21/20 Fenofibrate [Tricor*] 145 mg PO DAILY 09/21/20 Alprazolam [Xanax] 0.5 mg PO BID PRN #30 tablet 11/09/20 Furosemide [Lasix] 40 mg PO BIDL 04/02/21 Levothyroxine Sodium 25 mcg PO DAILY 04/02/21 Metoprolol Tartrate 25 mg PO DAILY 04/02/21 Potassium Chloride 20 meq PO DAILY 04/02/21 - Past Medical/Surgical History Has patient received pneumonia vaccine in the past: Yes Diabetic: No -: Carotid artery disease -: HTN -: HLD -: breast cancer -: hypothyroidism -: Paroxsysmal Atrial Fib. -: CHF-diastolic -: Anemia -: mastectomy left side -: carotid endarterectomy -: back surgery lumbar fusions 2009 -: right shoulder rotator cuff repair -: hysterectomy -: colon resection -: cholecystectomy -: appendectomy, thyroidectomy, tonsillectomy Psychosocial/ Personal History: Retired, lives at home with family - Family History Mother -: Heart disease Father -: Diabetes, Cancer - Social History Smoking Status: Never smoker Alcohol use: No CD- Drugs: No Caffeine use: Yes Place of Residence: Home Review of Systems 10-point ROS is otherwise unremarkable General: Weakness, Malaise Eyes: Unremarkable ENT: Unremarkable Respiratory: Unremarkable Cardiovascular: Chest Pain Gastrointestinal: Unremarkable Genitourinary: Unremarkable Musculoskeletal: Unremarkable Integumentary: Unremarkable Neurological: Unremarkable Lymphatics: Unremarkable Physical Examination - Vital Signs Temperature: 98.0 F Blood Pressure: 115/82 Pulse: 140 Respirations: 18 Pulse Ox (%): 98 - Physical Exam General: Alert, Oriented x3, Cooperative, Mild distress HEENT: Atraumatic, Normocephalic, PERRLA Neck: Supple, JVD not distended Respiratory: Clear to auscultation bilaterally, Normal air movement Cardiovascular: No edema, Normal pulses, Regular rate/rhythm Capillary refill: Brisk Gastrointestinal: Normal bowel sounds, Soft and benign, Non-distended Musculoskeletal: No clubbing, No swelling, No contractures Integumentary: No rashes, No breakdown Neurological: Normal speech, Normal strength at 5/5 x4 extr, Normal tone External genitalia: Deferred Rectal: Deferred - Studies Laboratory Data (last 24 hrs) 04/02/21 05:40: PT 12.1, INR 1.05 04/02/21 05:40: WBC 7.50, Hgb 7.0 L, Hct 22.5 L D, Plt Count 390 D 04/02/21 05:40: Sodium 144, Potassium 3.7, BUN 13, Creatinine 1.16, Glucose 131 H, Magnesium 1.8, Total Bilirubin 0.4, AST 15, ALT 13, Alkaline Phosphatase 66 Assessment and Plan - Plan Assessment Atypical Chest Pain HTN Hypothyroidism Paroxsysmal Atrial Fibrillation Anemia Plan Atypical Chest Pain: Monitor rhythm, Pain control: [place] 5mg or Morphine 2mg PRN. HTN: Continue home medications Hypothyroidism: Continue home medications, TSH, T4. Paroxsysmal Atrial Fibrillation: Cardiology Consult Anemia: Follow up with PCP to determine source of blood loss. Transfused in ER. Continue Ferrous Sulfate and Folic Acid. DVT Prophylaxis: Plavix and Aspirin Code Status: Full Code Discharge Plan: Home Plan to discharge in: 48 Hours - Advance Directives Does patient have a Living Will: No Does patient have a Durable POA for Healthcare: No - Code Status/Comfort Care Code Status Assessed: Yes Code Status: Full Code Critical Care: No Time Spent Managing Pts Care (In Minutes): 70
[2021-04-03] MEDS: METOPROLOL TAR 25 MG TAB PO SCH ×2 (05:02→17:11)
[2021-04-03 06:33] LABS: Absolute Lymphocytes (CBC) 1.6 K/uL (0.7-4.9); Basophils % 1.4 % (0-1.3); Hematocrit 25.3 % (36.0-45.0); Lymphocytes % 18.4 % (15.3-44.8); MPV 7.5 fL (7.6-11.3)
[2021-04-03 07:12] LABS: Potassium 4.4 mmol/L (3.5-5.1)
[2021-04-03] MEDS: FENOFIBRATE 160 MG TAB PO SCH (08:51)
[2021-04-03] MEDS: ASPIRIN EC 81 MG TAB PO SCH (08:51)
[2021-04-03] MEDS: CLOPIDOGREL 75 MG TABLET PO SCH (08:52)
--- NOTE | 2021-04-03 15:05 | P.PN ---
Subjective Date of Service: 04/03/21 Primary Care Provider: Dr. Ruano Chief Complaint: Atypical Chest Pain R/T Anemia Subjective: No new changes Review of Systems 10-point ROS is otherwise unremarkable Physical Examination - Vital Signs Temperature: 99.2 F Blood Pressure: 94/52 Pulse: 95 Respirations: 18 Pulse Ox (%): 96 - Physical Exam General: Alert, In no apparent distress HEENT: Atraumatic, PERRLA, EOMI Neck: Supple, JVD not distended Respiratory: Clear to auscultation bilaterally, Normal air movement Cardiovascular: Regular rate/rhythm, Normal S1 S2 Gastrointestinal: Normal bowel sounds, No tenderness Musculoskeletal: No tenderness Integumentary: No rashes Neurological: Normal speech, Normal tone, Normal affect Lymphatics: No axilla or inguinal lymphadenopathy Assessment & Plan - Problems (Diagnosis) (1) Anemia Current Visit: No Status: Acute Plan: she is dropped back down into the 7 range. The patient may drop further so will keep her in house. Will consult Dr. Song who she has seen in the past. Qualifiers: Anemia type: unspecified type Qualified Code(s): D64.9 - Anemia, unspecified (2) COPD (chronic obstructive pulmonary disease) Current Visit: No Status: Acute Plan: stable. She did have a recent covid infection. She is doing better at this time. Qualifiers: COPD type: chronic bronchitis (3) Hypertension Current Visit: No Status: Chronic Plan: stable will continue current medications. adjust as necessary, Qualifiers: Hypertension type: primary hypertension Qualified Code(s): I10 - Essential (primary) hypertension (4) Hypothyroidism Current Visit: No Status: Chronic Plan: check tsh Qualifiers: Hypothyroidism type: unspecified Qualified Code(s): E03.9 - Hypothyroidism, unspecified Discharge Plan: Home Plan to discharge in: 48 Hours - Code Status/Comfort Care Code Status Assessed: No Physician Review: Patient Assessed, Agree with Above Assessment and Plan Critical Care: No Time Spent Managing Pts Care (In Minutes): 20
[2021-04-03] MEDS: ATORVASTATIN 20 MG TAB PO SCH (22:24)
--- NOTE | 2021-04-04 06:18 | P.PN ---
Subjective Date of Service: 04/04/21 Primary Care Provider: Dr. Ruano Chief Complaint: Atypical Chest Pain R/T Anemia Subjective: Improving, Doing well (No rectal bleeding noted. No melena. No hemoptysis. Patient appears to be back to her baseline.) Physical Examination - Vital Signs Temperature: 97.0 F Blood Pressure: 148/64 Pulse: 93 Respirations: 20 Pulse Ox (%): 89 Assessment & Plan Discharge Plan: Home Plan to discharge in: 24 Hours Physician Review Additional Text: COVID: negative CXR: COMPARISON: Chest Single View dated 03/19/2021; Chest Single View dated 03/12/2021; Chest Single View dated 11/08/2020; Chest Single View dated 09/21/2020 FINDINGS: Portable technique limits examination quality. Mild pulmonary edema pattern is noted. The heart mildly size. No displaced fractures.Aortic atherosclerosis. IMPRESSION: Mild CHF. Physical exam: General: Alert, In no apparent distress HEENT: Atraumatic, PERRLA, EOMI Neck: Supple, JVD not distended Respiratory: Clear to auscultation bilaterally, Normal air movement Cardiovascular: Regular rate/rhythm, Normal S1 S2 Gastrointestinal: Normal bowel sounds, No tenderness Musculoskeletal: No tenderness Integumentary: No rashes Neurological: Normal speech, Normal tone, Normal affect Lymphatics: No axilla or inguinal lymphadenopathy Impression: Chest pain resolved Acute on chronic anemia with history of iron and B12 deficiency COPD on chronic oxygen Hypothyroidism Hypertension Atrial fibrillation Hyperlipidemia Chronic renal disease stage III Atrial fibrillation not on chronic anticoagulation therapy History of CVA Plan: Patient doing well overnight. Patient received 1 unit of blood. Hemoglobin s table. No evidence of hemoptysis, hematochezia, or melena. Patient with history of iron deficiency and B12 deficiency in the past. Patient reports having EGD and colonoscopy in the past. Case discussed with GI. Patient will follow up with GI this week. Patient will likely require pill camera to further evaluate. Patient will continue with her current medications. Recommend iron 325 mg 1 pill twice daily and vitamin B12 daily. Patient will resume her other home medications including Lipitor 20 mg daily, metoprolol 25 mg daily, levothyroxine 25 mcg daily, Lasix 40 mg daily, potassium supplementation, Plavix 25 mg daily, fenofibrate 145 mg daily, aspirin 81 mg daily, vitamin C 500 mg daily, Dulera spray as directed. Plan for discharge today. Time Spent Managing Pts Care (In Minutes): 55
[2021-04-04] MEDS: METOPROLOL TAR 25 MG TAB PO SCH (06:27)
[2021-04-04] MEDS: FENOFIBRATE 160 MG TAB PO SCH (08:09)
[2021-04-04] MEDS: CLOPIDOGREL 75 MG TABLET PO SCH (08:09)
[2021-04-04] MEDS: ASPIRIN EC 81 MG TAB PO SCH (08:12)
[2021-04-04 09:12] VITALS: O2SAT 95
[2021-04-04 09:19] VITALS: BP 148/64; TEMP 97
--- NOTE | 2021-04-04 09:26 | P.DS ---
Admission Date: 04/02/21 Discharge Date: 04/04/21 Primary Care Provider: Dr. Ruano Disposition: ROUTINE DISCHARGE Discharge Condition: GOOD Reason for Admission: Atypical Chest Pain R/T Anemia Consultations: none Procedures: COVID: negative CXR: COMPARISON: Chest Single View dated 03/19/2021; Chest Single View dated 03/12/2021; Chest Single View dated 11/08/2020; Chest Single View dated 09/21/2020 FINDINGS: Portable technique limits examination quality. Mild pulmonary edema pattern is noted. The heart mildly size. No displaced fractures.Aortic atherosclerosis. IMPRESSION: Mild CHF. Medical problem list: Chest pain resolved Acute on chronic anemia with history of iron and B12 deficiency COPD on chronic oxygen Hypothyroidism Hypertension Atrial fibrillation Hyperlipidemia Chronic renal disease stage III Atrial fibrillation not on chronic anticoagulation therapy History of CVA Chronic diastolic CHF Brief History of Present Illness: 71-year-old female with history of multiple medical problems including CHF, COPD, atrial fibrillation, anemia, chronic renal disease, hypertension and hyperlipidemia. Patient presented with chest pain. Initial cardiac enzymes unremarkable. Patient found to be anemic. Patient with history of chronic anemia with iron and B12 deficiency. Patient was admitted for further evaluation and treatment. Hospital Course: Patient presented with chest pain. Cardiac enzymes unremarkable. Patient with significant history of COPD on chronic oxygen, hypothyroidism, hypertension, atrial fibrillation not on chronic anticoagulation therapy, hyperlipidemia, chronic renal disease stage III, chronic diastolic CHF and history of CVA. Patient was monitored overnight. Patient with acute on chronic anemia with history of iron and B12 deficiency. Patient was given 1 unit of blood. No hemoptysis, hematemesis, hematochezia or melena noted. Patient reports seen by GI in the past with previous EGD and colonoscopy. Case discussed with GI. No intervention required at this time. GI plans to follow-up with patient this week. Patient will require pill camera to further evaluate. At discharge the patient will continue with iron 325 mg 1 pill twice daily and vitamin B12 1000 mg daily. Recommend to recheck CBC, iron and vitamin B12 in 1 to 2 weeks to monitor her progress. Recommend follow-up with GI this week for further evaluation and to obtain pill camera to further evaluate her anemia. Recommend follow-up with her PCP in 1 week to follow-up his hospitalization. For her chronic diastolic CHF. At discharge she will continue with her current medications of Lasix 40 mg daily and potassium supplementation 20 mEq daily. Recommend to continue 1500 cc/day fluid restriction and low-salt diet. Recommend to monitor her weight daily. If her weight increases by more than 5 pounds she is to contact her foreign trade teacher for further recommendation on adjustments in medication. Patient with atrial fibrillation not on chronic anticoagulation therapy. Patient also with history of CVA, hypertension and hyperlipidemia. At discharge she will continue with her medications including Lipitor 20 mg daily, metoprolol 25 mg daily, Plavix 75 mg daily, fenofibrate 145 mg daily, and aspirin 81 mg daily. Recommend follow-up with cardiology in 2 to 4 weeks to follow-up his hospitalization. Patient with COPD on chronic oxygen. Patient will continue with oxygen to ma intain sats above 93%. At discharge she will continue with Dulera 1 puff twice daily. Patient with chronic renal disease stage III. Overall stable. Recommend to monitor and recheck labBMP in 2 to 4 weeks to monitor her progress. Vital Signs/Physical Exam: Temp Pulse Resp BP Pulse Ox 97.0 F 93 H 20 148/64 H 89 L 04/04/21 09:21 04/04/21 09:21 04/04/21 09:21 04/04/21 09:21 04/04/21 09:21 General: Alert, In no apparent distress, Oriented x3, Cooperative HEENT: Atraumatic Neck: Supple Respiratory: Clear to auscultation bilaterally, Normal air movement Cardiovascular: Normal pulses, Regular rate/rhythm Gastrointestinal: Normal bowel sounds, No ascites, No tenderness, No masses, No rebound, No guarding Musculoskeletal: No erythema, No tenderness, No warmth Integumentary: No tenderness/swelling Neurological: Normal speech, Normal strength at 5/5 x4 extr, Normal tone Laboratory Data at Discharge: WBC 8.60 K/uL (4.3-10.9) D 04/03/21 06:23 Hgb 7.8 g/dL (12.0-15.0) L 04/03/21 06:23 Hct 25.3 % (36.0-45.0) L 04/03/21 06:23 Plt Count 305 K/uL (152-406) D 04/03/21 06:23 PT 12.1 SECONDS (9.5-12.5) 04/02/21 05:40 INR 1.05 04/02/21 05:40 Sodium 143 mmol/L (136-145) 04/03/21 06:23 Potassium 4.4 mmol/L (3.5-5.1) 04/03/21 06:23 BUN 17 mg/dL (7-18) 04/03/21 06:23 Creatinine 1.26 mg/dL (0.55-1.3) 04/03/21 06:23 Glucose 104 mg/dL (74-106) 04/03/21 06:23 Magnesium 1.8 mg/dL (1.8-2.4) 04/02/21 05:40 Total Bilirubin 0.4 mg/dL (0.2-1.0) 04/02/21 05:40 AST 15 U/L (15-37) 04/02/21 05:40 ALT 13 U/L (12-78) 04/02/21 05:40 Alkaline Phosphatase 66 U/L (45-117) 04/02/21 05:40 Troponin I < 0.02 ng/mL (0.0-0.045) 04/02/21 20:02 Home Medications: Ascorbic Acid [Vitamin C*] 500 mg PO DAILY 09/21/20 Aspirin [Aspirin EC] 81 mg PO DAILY 09/21/20 Atorvastatin Calcium [Lipitor*] 20 mg PO BEDTIME 09/21/20 Clopidogrel Bisulfate [Plavix*] 75 mg PO DAILY 09/21/20 Fenofibrate [Tricor*] 145 mg PO DAILY 09/21/20 Alprazolam [Xanax] 0.5 mg PO BID PRN #30 tablet 11/09/20 Furosemide [Lasix*] 40 mg PO BIDL 04/02/21 Levothyroxine Sodium 25 mcg PO DAILY 04/02/21 Metoprolol Tartrate 25 mg PO DAILY 04/02/21 Potassium Chloride 20 meq PO DAILY 04/02/21 Cyanocobalamin (Vitamin B-12) [Vitamin B-12] 1,000 mcg PO DAILY #90 capsule 04/04/21 Ferrous Sulfate [Iron] 325 mg PO BID #60 tablet 04/04/21 New Medications: Ferrous Sulfate [Iron] 325 mg PO BID #60 tablet Cyanocobalamin (Vitamin B-12) [Vitamin B-12] 1,000 mcg PO DAILY #90 capsule Physician Discharge Instructions: Patient presented with chest pain. Cardiac enzymes unremarkable. Patient with significant history of COPD on chronic oxygen, hypothyroidism, hypertension, atrial fibrillation not on chronic anticoagulation therapy, hyperlipidemia, chronic renal disease stage III, chronic diastolic CHF and history of CVA. Patient was monitored overnight. Patient with acute on chronic anemia with history of iron and B12 deficiency. Patient was given 1 unit of blood. No hemoptysis, hematemesis, hematochezia or melena noted. Patient reports seen by GI in the past with previous EGD and colonoscopy. Case discussed with GI. No intervention required at this time. GI plans to follow-up with patient this week. Patient will require pill camera to further evaluate. At discharge the patient will continue with iron 325 mg 1 pill twice daily and vitamin B12 1000 mg daily. Recommend to recheck CBC, iron and vitamin B12 in 1 to 2 weeks to monitor her progress. Recommend follow-up with GI this week for further evaluation and to obtain pill camera to further evaluate her anemia. Recommend follow-up with her PCP in 1 week to follow-up his hospitalization. For her chronic diastolic CHF. At discharge she will continue with her current medications of Lasix 40 mg daily and potassium supplementation 20 mEq daily. Recommend to continue 1500 cc/day fluid restriction and low-salt diet. Recommend to monitor her weight daily. If her weight increases by more than 5 pounds she is to contact her foreign trade teacher for further recommendation on adjustments in medication. Patient with atrial fibrillation not on chronic anticoagulation therapy. Patient also with history of CVA, hypertension and hyperlipidemia. At discharge she will continue with her medications including Lipitor 20 mg daily, metoprolol 25 mg daily, Plavix 75 mg daily, fenofibrate 145 mg daily, and aspirin 81 mg daily. Recommend follow-up with cardiology in 2 to 4 weeks to follow-up his hospitalization. Patient with COPD on chronic oxygen. Patient will continue with oxygen to maintain sats above 93%. At discharge she will continue with Dulera 1 puff twice daily. Patient with chronic renal disease stage III. Overall stable. Recommend to monitor and recheck labBMP in 2 to 4 weeks to monitor her progress. Diet: AHA Activity: Ad mattie Followup: Jarad Ruano MD [Primary Care Provider] - Time spent managing pt's care (in minutes): 55
== END 2021-04-04 10:40 | disposition home or self-care (01) | DRG 812 ==
LOC: ER 05:21 → ERHOLD 09:56 → 2ND 12:15
PROVIDERS: ADMIT Internal Medicine; ATTEND Internal Medicine
PROC: 30233N1 Transfusion of Nonautologous Red Blood Cells into Peripheral Vein, Percutaneous Approach (ICD-10-PCS; principal; 2021-04-02)
DX: D64.9 Anemia, unspecified (principal); I13.0 Hypertensive heart and chronic kidney disease with heart failure and stage 1 through stage 4 chronic kidney disease, or unspecified chronic kidney disease; I50.32 Chronic diastolic (congestive) heart failure; R07.9 Chest pain, unspecified; J44.9 Chronic obstructive pulmonary disease, unspecified; E03.9 Hypothyroidism, unspecified; I48.91 Unspecified atrial fibrillation; E78.5 Hyperlipidemia, unspecified; N18.30 Chronic kidney disease, stage 3 unspecified; Z86.73 Personal history of transient ischemic attack (TIA), and cerebral infarction without residual deficits; Z99.81 Dependence on supplemental oxygen; Z86.16 Personal history of COVID-19; Z85.3 Personal history of malignant neoplasm of breast; Z20.822 Contact with and (suspected) exposure to COVID-19
CPT/HCPCS: 36415; 71045; 80048; 80076; 82947; 83735; 83880; 84443; 84484; 85014; 85018; 85025; 85379; 85610; 86850; 86900; 86901; 93005; 96361; 96374; 96375; 99285; J1160; J1170; J2270; J2405; J2550; J7040; P9016; U0003

== ENCOUNTER 2021-04-25 15:27 | Inpatient (IN) | payer OTHER ==
--- NOTE | 2021-04-25 16:56 | RAD REPORT ---
EXAM DESCRIPTION: RAD - Chest Single View - 04/25/2021 4:13 pm CLINICAL HISTORY: DYSPNEA COMPARISON: Portable April 02 TECHNIQUE: AP portable chest image was obtained 04/25/2021 4:13 pm . FINDINGS: Diffuse interstitial opacification is present worse than the prior examination. Scattered alveolar components are seen in the lower lung spicer. Worsening findings are partly due to under pen etrated technique. However, a true progression is suspected. Heart and vasculature are normal. No сергей surable pleural effusion and no pneumothorax. No acute bony abnormality seen. No acute aortic finding s suspected. IMPRESSION: Diffuse interstitial opacification worse than seen April 02. Scattered lower lung fi eld alveolar opacities also present. Interstitial edema or infiltrate suspected. Viral pneumonia including COVID-19 pneumonia can have thi s presentation.
[2021-04-25 17:02] LABS: Absolute Lymphocytes (CBC) 0.9 K/uL (0.7-4.9); Basophils % 0.4 % (0-1.3); Hematocrit 33.1 % (36.0-45.0); Lymphocytes % 9.5 % (15.3-44.8); MPV 8.6 fL (7.6-11.3); RBC Red Blood Cell Count 3.88 M/uL (3.86-4.86)
[2021-04-25] MEDS ORDERED: METOPROLOL TARTRATE 5 MG/5 ML INJ IV ONE (17:15)
[2021-04-25 17:21] LABS: ALT/SGPT 20 U/L (12-78); AST/SGOT 32 U/L (15-37); Albumin 3.6 g/dL (3.4-5.0); Alkaline Phosphatase 61 U/L (45-117); BUN Blood Urea Nitrogen 19 mg/dL (7-18); Bicarbonate 26 mmol/L (21-32); Bilirubin Direct 0.4 mg/dL (0-0.2); Bilirubin Total 0.9 mg/dL (0.2-1.0); CKMB Creatine Kinase MB 1.2 ng/mL (1.0-3.6); Creatine Phosphokinase 48 U/L (26-192); Glucose Level 110 mg/dL (74-106); Lipase 74 U/L (73-393); Potassium 4.1 mmol/L (3.5-5.1); Sodium Level 142 mmol/L (136-145); Troponin (Emerg Dept Use Only) < 0.02 ng/mL (0.0-0.045)
[2021-04-25 17:23] LABS: Protime INR 1.21
[2021-04-25 17:25] LABS: Magnesium 1.9 mg/dL (1.8-2.4); Thyroid Stimulating Hormone 0.261 uIU/mL (0.360-3.740)
[2021-04-25] MEDS ORDERED: ONDANSETRON 4 MG/2 ML VIAL ONE ×2 (17:48→21:24)
[2021-04-25] MEDS ORDERED: ENOXAPARIN 100 MG/ML SYR SQ ONE (18:35)
[2021-04-25] MEDS ORDERED: AMIODARONE HCL 150 MG/3 ML INJ IV ONE (18:35)
[2021-04-25] MEDS ORDERED: AMIODARONE IN DEXTROSE,ISO-OSM 0 MG/0 ML BAG IV ONE (18:35)
[2021-04-25] MEDS ORDERED: D5W 100 ML IV ONE (18:35)
--- NOTE | 2021-04-25 18:41 | EDPHYS ---
Physician Documentation [facility] Name: Susana Jaffe Age: 71 yrs Sex: Female : 1950 Arrival Date: 04/25/2021 Time: 15:29 Bed 8 Private MD: ED Physician Alpesh Smith HPI: 04/25 16:43 This 71 yrs old Female presents to ER via Wheelchair with complaints of jr8 Breathing Difficulty. 16:43 The patient has shortness of breath at rest. Onset: The symptoms/episode began/occurred jr8 gradually, 2 day(s) ago, and became worse and became persistent. Duration: The symptoms are continuous. The patient's shortness of breath is aggravated by light activity, walking. Associated signs and symptoms: The patient has no apparent associated signs or symptoms. Severity of symptoms: At their worst the symptoms were moderate in the emergency department the symptoms are unchanged. It is unknown whether or not the patient has had similar symptoms in the past. The patient has been recently seen by a physician:. 16:44 This is a 71-year-old female that presented to the emergency room with sudden onset of jr8 shortness of breath that started 2 days ago and progressively became worse. Patient was admitted on the of last month for similar episode. At that time she was admitted for atrial fibrillation with anemia. Was hospitalized and transfused and then sent home on iron. Stated that she feels short of breath now but that it feels different than her previous episode.. Historical: - Allergies: 15:40 iodine ..; ll1 - Home Meds: 22:12 Vitamin C 500 mg Oral tab daily [Active]; Albuterol Inhl [Active]; aspirin 81 mg Oral bs2 chew 1 tab once daily [Active]; atorvastatin 20 mg Oral tab 1 tab once daily [Active]; clopidogrel 75 mg Oral tab 1 tab once daily [Active]; dulera as needed [Active]; fenofibrate 145 MG Oral once daily [Active]; furosemide 40 mg Oral tab 1 tab once daily [Active]; Furosemide Oral [Active]; Klor-Con 10 20 meq Oral 1 tab once daily [Active]; levothyroxine 25 mcg tab 1 tab once daily [Active]; metoprolol tartrate 25 mg Oral tab 1 tab once daily [Active]; Tramadol Oral [Active]; - PMHx: 15:40 Cancer, Breast; Hypothyroidism; ruptured colon; Hyperlipidemia; Hypertension; ll1 - PSHx: 15:40 back; Carotid endarterectomy; Cholecystectomy; Appendectomy; colon resection; rotator ll1 cuff; Thyroidectomy; mastectomy-left; left knee; hysterectomy; Tonsillectomy; - Immunization history:: Client reports receiving the 2nd dose of the Covid vaccine. - Social history:: Smoking status: Patient/guardian denies using tobacco, Stopped _ months ago 10. ROS: 16:44 Eyes: Negative for injury, pain, redness, and discharge, ENT: Negative for injury, jr8 pain, and discharge, Neck: Negative for injury, pain, and swelling, Abdomen/GI: Negative for abdominal pain, nausea, vomiting, diarrhea, and constipation, Back: Negative for injury and pain, MS/Extremity: Negative for injury and deformity, Skin: Negative for injury, rash, and discoloration, Neuro: Negative for headache, weakness, numbness, tingling, and seizure. 16:44 Cardiovascular: Positive for palpitations. 16:44 Respiratory: Positive for dyspnea on exertion, orthopnea, shortness of breath. Exam: 16:44 Eyes: Pupils equal round and reactive to light, extra-ocular motions intact. Lids and jr8 lashes normal. Conjunctiva and sclera are non-icteric and not injected. Cornea within normal limits. Periorbital areas with no swelling, redness, or edema. ENT: Nares patent. No nasal discharge, no septal abnormalities noted. Tympanic membranes are normal and external auditory canals are clear. Oropharynx with no redness, swelling, or masses, exudates, or evidence of obstruction, uvula midline. Mucous membranes moist. Neck: Trachea midline, no thyromegaly or masses palpated, and no cervical lymphadenopathy. Supple, full range of motion without nuchal rigidity, or vertebral point tenderness. No Meningismus. Abdomen/GI: Soft, non-tender, with normal bowel sounds. No distension or tympany. No guarding or rebound. No evidence of tenderness throughout. Back: No spinal tenderness. No costovertebral tenderness. Full range of motion. Skin: Warm, dry with normal turgor. Normal color with no rashes, no lesions, and no evidence of cellulitis. MS/ Extremity: Pulses equal, no cyanosis. Neurovascular intact. Full, normal range of motion. Neuro: Awake and alert, GCS 15, oriented to person, place, time, and situation. Cranial nerves II-XII grossly intact. Motor strength 5/5 in all extremities. Sensory grossly intact. 16:44 Constitutional: The patient appears alert, awake, uncomfortable. 16:44 Cardiovascular: Rate: tachycardic, Rhythm: irregularly irregular, Pulses: Pulses are 2+ in right radial artery and left radial artery. Heart sounds: normal, normal S1and S2, Edema: is not appreciated. 16:44 Respiratory: mild respiratory distress is noted, Respirations: tachypnea, that is moderate, Breath sounds: are clear throughout, no bronchial sounds, no decreased breath sounds, no rales, rhonchi, no stridor, no wheezing. Vital Signs: 15:37 BP 122 / 106; Pulse 163; Resp 30; Temp 96.4(TE); Pulse Ox 85% on R/A; Weight 99.79 kg; bp Pain 5/10; 15:41 Pulse Ox 93% on 3 lpm NC; ll1 16:30 BP 141 / 128; Pulse 133; Resp 19; Pulse Ox 94% ; bp 17:30 BP 105 / 63; Pulse 137; Resp 28; Pulse Ox 93% on 2 lpm NC; bp 19:00 BP 97 / 75; Pulse 132; Resp 27; Pulse Ox 94% on 3 lpm NC; Pain 6/10; bs2 19:15 BP 106 / 84; Pulse 131; Resp 26; Pulse Ox 96% on 3 lpm NC; bs2 19:30 BP 101 / 73; Pulse 139; Resp 23; Pulse Ox 99% on 3 lpm NC; bs2 19:45 BP 106 / 76; Pulse 143; Resp 23; Pulse Ox 97% on 3 lpm NC; bs2 20:00 BP 88 / 72; Pulse 137; Resp 26; Pulse Ox 96% on 3 lpm NC; bs2 20:30 BP 109 / 72; Pulse 134; Resp 26; Temp 97.6; Pulse Ox 96% on 3 lpm NC; bs2 20:45 BP 99 / 73; Pulse 138; Resp 26; Pulse Ox 96% on 3 lpm NC; bs2 21:00 BP 85 / 57; Pulse 137; Resp 26; Pulse Ox 93% on 3 lpm NC; bs2 21:15 BP 74 / 57; Pulse 137; Resp 24; Temp 97.6(O); Pulse Ox 94% on 3 lpm NC; bs2 21:30 BP 87 / 59; Pulse 137; Resp 25; Temp 97.6; Pulse Ox 93% on 3 lpm NC; Pain 6/10; bs2 MDM: 15:32 Patient medically screened. jr8 16:42 ED course: Patient had delay in treatment secondary to being extremely hard stick. jr8 Multiple attempts were made via strait stick and IV without success. Patient had left mastectomy 15 years ago. I discussed with patient that an emergency situation it is okay to use the left arm as it is been over 15 years at this point. Patient is good with this and I started an IV on her. Was able to draw blood and give medicines to stabilize heart rate.. 17:45 Physician consultation: Joel Shaver MD was contacted at 17:45, regarding consult, cp patient's condition, wants Amiodarone bolus and drip initiated for rate control. 18:30 Data reviewed: vital signs, nurses notes, lab test result(s), EKG, radiologic studies, cp plain films, I have discussed the patient's presentation/case with the attending Emergency Department Physician; and as a result, I will admit patient. 04/25 15:39 Order name: Basic Metabolic Panel; Complete Time: 17:28 [facility] 04/25 18:18 Interpretation: Normal except: GLUC 110; BUN 19; GFR 52. cp 04/25 15:39 Order name: Blood Culture Adult (2) 04/25 15:39 Order name: C-Reactive Protein; Complete Time: 17:28 [facility] 04/25 15:39 Order name: CBC with Diff; Complete Time: 17:12 04/25 15:39 Order name: CPK; Complete Time: 17:28 04/25 15:39 Order name: Ckmb; Complete Time: 17:28 04/25 15:39 Order name: LFT's; Complete Time: 17:28 04/25 15:39 Order name: Lactate; Complete Time: 17:12 04/25 15:39 Order name: Lipase; Complete Time: 17:28 04/25 15:39 Order name: Procalcitonin; Complete Time: 17:53 04/25 15:39 Order name: Protime (+inr); Complete Time: 17:53 jr8 04/25 15:39 Order name: Ptt, Activated; Complete Time: 17:53 jr8 04/25 15:39 Order name: Troponin (emerg Dept Use Only); Complete Time: 17:28 jr8 04/25 15:39 Order name: Urine Microscopic Only 8 04/25 15:39 Order name: Chest Single View XRAY; Complete Time: 17:12 8 04/25 15:57 Order name: Magnesium; Complete Time: 17:28 8 04/25 15:57 Order name: TSH; Complete Time: 17:28 8 04/25 15:57 Order name: T4 Free; Complete Time: 17:28 8 04/25 17:30 Order name: BNP cp 04/25 17:30 Order name: NT PRO-BNP; Complete Time: 18:18 EDMS 04/25 17:30 Order name: LAB Add On cp 04/25 18:18 Order name: ABG cp 04/25 18:18 Order name: ABG Arterial Blood Gas EDMS 04/25 18:57 Order name: SARS-COV-2 RT PCR EDMS 04/25 20:41 Order name: XRAY Chest (1 view) 4 04/26 01:22 Order name: Troponin I EDMS 04/25 15:39 Order name: Accucheck; Complete Time: 16:56 8 04/25 15:39 Order name: Cardiac monitoring; Complete Time: 15:58 8 04/25 15:39 Order name: EKG - Nurse/Tech; Complete Time: 16:09 8 04/25 15:39 Order name: IV Saline Lock - Large Bore; Complete Time: 16:55 8 04/25 15:39 Order name: Labs collected and sent; Complete Time: 16:54 8 04/25 15:39 Order name: O2 Per Protocol; Complete Time: 15:57 jr8 04/25 15:39 Order name: O2 Sat Monitoring; Complete Time: 15:57 8 04/25 19:02 Order name: CONS Physician Consult; Complete Time: 23:09 EDMS Administered Medications: 16:45 Drug: Metoprolol 5 mg Route: IVP; Site: left hand; bp 16:50 Drug: Metoprolol 5 mg Route: IVP; Site: left hand; bp 18:18 Follow up: Response: No adverse reaction bp 22:15 Follow up: Response: No adverse reaction bs2 18:05 Drug: amiodarone 150 mg Volume: 100 ml; Route: IVPB; Infused Over: 10 mins; Site: left bp hand; 19:44 Follow up: IV Status: Completed infusion bs2 18:10 Drug: Lovenox (enoxaparin) 1 mg/kg Route: Sub-Q; Site: right lower abdomen; bp 18:21 Follow up: Response: No adverse reaction bp 19:35 CANCELLED (wrong providerr): fentaNYL (PF) 25 mcg IVP once; RASS on ADMIN: Combtv4, bs2 Very Agttd3, Agttd2, Rstlss1, AlertClm0, Drwsy-1, Lt Sdtn-2, Mod Sdtn-3, Dp Sdtn-4, UnArsble-5 19:44 Drug: fentaNYL (PF) 25 mcg Route: IVP; Site: left hand; bs2 22:14 Follow up: Response: No adverse reaction; Pain is unchanged, physician notified bs2 21:54 Drug: amiodarone 900 mg, D5W 500 ml Route: IVPB; Rate: 1 mg/min; Site: left subclavian; bs2 22:15 Follow up: IV Status: Infusion continued upon admission bs2 Disposition: 17:23 Co-signature as Attending Physician, Alpesh Smith MD I have seen patient and was present sp3 at bedside for medical treatment plan including Lopressor for 3 doses and now digoxin IV. Will admit for A. fib RVR.. 19:00 Critical Care:. cp Disposition Summary: 04/25/21 18:40 Hospitalization Ordered Hospitalization Status: Inpatient Admission cp Provider: Jas Benitez cp Condition: Critical cp Problem: new cp Symptoms: have improved cp Bed/Room Type: Standard cp Location: Intensive Care Unit(04/26/21 03:08) cg Room Assignment: 7-(04/26/21 03:08) cg Diagnosis - Unspecified atrial fibrillation cp - Left bundle-branch block, unspecified cp - Unspecified combined systolic (congestive) and diastolic (congestive) heart failure cp Forms: - Medication Reconciliation Form cp - SBAR form cp Critical care time excluding procedures: 19:00 Critical care time: Bedside Care: 15 minutes, Consultation: 20 minutes, Family cp Intervention: 5 minutes. Total time: 40 minutes Signatures: Dispatcher [employer] EDMS Peter Hand PA PA jr8 Oren Sow PA PA cp Lashonda Torres, [place] RN cg Tyshawn Rodríguez, RN RN bp Dani Menendez, RN RN ll1 Alpesh Smith MD MD sp3 Tameka Freitas RN RN bs2 Corrections: (The following items were deleted from the chart) 18:57 17:46 CORONAVIRUS+ ordered. EDMS EDMS 19: 18:40 Intensive Care Unit cp cg 19:22 18:40 cp cg 19:35 19:34 fentaNYL (PF) 25 mcg IVP once; RASS on ADMIN: Combtv4, Very Agttd3, Agttd2, bs2 Rstlss1, AlertClm0, Drwsy-1, Lt Sdtn-2, Mod Sdtn-3, Dp Sdtn-4, UnArsble-5 ordered. bs2 04/26 03:08 04/25 19:22 [facility] ER HOLD cg cg 04/26 03:08 04/25 19:22 ERHOLD- cg cg
--- NOTE | 2021-04-25 18:41 | ER ---
Nurse's Notes [facility] Name: Susana Jaffe Age: 71 yrs Sex: Female : 1950 Arrival Date: 04/25/2021 Time: 15:29 Bed 8 Private MD: Diagnosis: Unspecified atrial fibrillation;Left bundle-branch block, unspecified;Unspecified combined systolic (congestive) and diastolic (congestive) heart failure Presentation: 04/25 15:37 Chief complaint: Patient states: SOB for 2 days. Was admitted last month for fluid ll1 around her heart, states it feels the same. No fever. Coronavirus screen: Vaccine status: Patient reports receiving the 2nd dose of the covid vaccine. Client denies travel out of the [place] in the last 14 days. difficulty breathing, shortness of breath, Client presents with at least one sign or symptom that may indicate coronavirus-19. Standard/surgical mask placed on the client. Ebola Screen: Patient denies travel to an Ebola-affected area in the 21 days before illness onset. Initial Sepsis Screen: Does the patient meet any 2 criteria? RR > 20 per min. HR > 90 bpm. Yes Does the patient have a suspected source of infection? Yes: Other: SOB/CP. Risk Assessment: Do you want to hurt yourself or someone else? Patient reports no desire to harm self or others. Onset of symptoms was April 24, 2021. 15:37 Method Of Arrival: Wheelchair ll1 15:37 Acuity: CINDY 2 ll1 Triage Assessment: 15:40 General: Appears distressed, uncomfortable, obese, Behavior is cooperative, appropriate bp for age, anxious. Pain: Complains of pain in chest. EENT: No deficits noted. Neuro: No deficits noted. Cardiovascular: Rhythm is sinus tachycardia. Respiratory: Reports shortness of breath at rest Onset: The symptoms/episode began/occurred at an unknown time. the patient has severe shortness of breath. GI: Abdomen is obese. : No signs and/or symptoms were reported regarding the genitourinary system. Derm: No deficits noted. Musculoskeletal: No deficits noted. Historical: - Allergies: 15:40 iodine ..; ll1 - Home Meds: 22:12 Vitamin C 500 mg Oral tab daily [Active]; Albuterol Inhl [Active]; aspirin 81 mg Oral bs2 chew 1 tab once daily [Active]; atorvastatin 20 mg Oral tab 1 tab once daily [Active]; clopidogrel 75 mg Oral tab 1 tab once daily [Active]; dulera as needed [Active]; fenofibrate 145 MG Oral once daily [Active]; furosemide 40 mg Oral tab 1 tab once daily [Active]; Furosemide Oral [Active]; Klor-Con 10 20 meq Oral 1 tab once daily [Active]; levothyroxine 25 mcg tab 1 tab once daily [Active]; metoprolol tartrate 25 mg Oral tab 1 tab once daily [Active]; Tramadol Oral [Active]; - PMHx: 15:40 Cancer, Breast; Hypothyroidism; ruptured colon; Hyperlipidemia; Hypertension; ll1 - PSHx: 15:40 back; Carotid endarterectomy; Cholecystectomy; Appendectomy; colon resection; rotator ll1 cuff; Thyroidectomy; mastectomy-left; left knee; hysterectomy; Tonsillectomy; - Immunization history:: Client reports receiving the 2nd dose of the Covid vaccine. - Social history:: Smoking status: Patient/guardian denies using tobacco, Stopped _ months ago 10. Screenin:57 Abuse screen: Denies threats or abuse. Denies injuries from another. Nutritional bp screening: No deficits noted. Tuberculosis screening: No symptoms or risk factors identified. Fall Risk None identified. Assessment: 15:40 General: SEE TRIAGE NOTE. bp 17:30 Reassessment: No changes from previously documented assessment. Patient and/or family bp updated on plan of care and expected duration. Pain level reassessed. Cardiovascular: Rhythm is sinus tachycardia. Respiratory: Airway is patent Respiratory effort is labored, Breath sounds with crackles Breath sounds with wheezes. Vital Signs: 15:37 BP 122 / 106; Pulse 163; Resp 30; Temp 96.4(TE); Pulse Ox 85% on R/A; Weight 99.79 kg; bp Pain 5/10; 15:41 Pulse Ox 93% on 3 lpm NC; ll1 16:30 BP 141 / 128; Pulse 133; Resp 19; Pulse Ox 94% ; bp 17:30 BP 105 / 63; Pulse 137; Resp 28; Pulse Ox 93% on 2 lpm NC; bp 19:00 BP 97 / 75; Pulse 132; Resp 27; Pulse Ox 94% on 3 lpm NC; Pain 6/10; bs2 19:15 BP 106 / 84; Pulse 131; Resp 26; Pulse Ox 96% on 3 lpm NC; bs2 19:30 BP 101 / 73; Pulse 139; Resp 23; Pulse Ox 99% on 3 lpm NC; bs2 19:45 BP 106 / 76; Pulse 143; Resp 23; Pulse Ox 97% on 3 lpm NC; bs2 20:00 BP 88 / 72; Pulse 137; Resp 26; Pulse Ox 96% on 3 lpm NC; bs2 20:30 BP 109 / 72; Pulse 134; Resp 26; Temp 97.6; Pulse Ox 96% on 3 lpm NC; bs2 20:45 BP 99 / 73; Pulse 138; Resp 26; Pulse Ox 96% on 3 lpm NC; bs2 21:00 BP 85 / 57; Pulse 137; Resp 26; Pulse Ox 93% on 3 lpm NC; bs2 21:15 BP 74 / 57; Pulse 137; Resp 24; Temp 97.6(O); Pulse Ox 94% on 3 lpm NC; bs2 21:30 BP 87 / 59; Pulse 137; Resp 25; Temp 97.6; Pulse Ox 93% on 3 lpm NC; Pain 6/10; bs2 ED Course: 15:29 Patient arrived in ED. ds1 15:31 Patient has correct armband on for positive identification. Bed in low position. Call 5 light in reach. Side rails up X 1. Adult w/ patient. Warm blanket given. shelter monitor on. Pulse ox on. NIBP on. 15:32 Peter Hand PA is PHCP. jr8 15:32 Alpesh Smith MD is Attending Physician. jr8 15:33 Tyshawn Rodríguez, [place] is Primary Nurse. bp 15:40 Triage completed. ll1 16:09 EKG done, by ED staff, reviewed by Peter MASON. mh5 16:10 Chest Single View XRAY Sent. mh5 16:13 Chest Single View XRAY In Process Unspecified. EDMS 16:30 Inserted saline lock: 24 gauge in left hand, using aseptic technique. Blood collected. bp 17:18 PHCP role handed off by Peter Hand PA cp 17:18 Oren Sow PA is PHCP. cp 18:39 Jas Benitez is Hospitalizing Provider. cp 19:15 Arm band placed on right wrist. bs2 21:10 Assisted provider with central line placement. Set up central line tray. Triple lumen bs2 line placed in left subclavian. Placement verified by CXR, blood return, Dressed with Tegaderm, Patient tolerated poorly. Before procedure, did Practitioner(s) obtain informed consent? Yes. Patient \T\ family education about procedure, CLABSI prevention and S/S of infection? Yes. Time-out/Briefing performed prior to start of procedure? Yes. Was handwashing/sanitizing done immediately prior to procedure? Yes. Was patient positioned to in a way to prevent air embolism? Yes. Was procedure site sterilized? Yes, with Was the site allowed to dry? Yes. Was local anesthetic and/or sedation utilized? Yes. During the procedure, did the Practitioner(s) maintain a sterile field? Yes. Were unused ports clamped during insertion? Yes. Was blood aspirated from each lumen? Yes. After the procedure, did the Practitioner(s) clean the site and apply a sterile dressing? No. 22:14 Patient admitted, IV remains in place. bs2 22:14 XRAY Chest (1 view) Sent. bs2 22:16 Blood Culture Adult (2) Sent. bs2 23:09 ABG Sent. bs2 23:09 LAB Add On Sent. bs2 23:09 BNP Sent. bs2 Administered Medications: 16:45 Drug: Metoprolol 5 mg Route: IVP; Site: left hand; bp 16:50 Drug: Metoprolol 5 mg Route: IVP; Site: left hand; bp 18:18 Follow up: Response: No adverse reaction bp 22:15 Follow up: Response: No adverse reaction bs2 18:05 Drug: amiodarone 150 mg Volume: 100 ml; Route: IVPB; Infused Over: 10 mins; Site: left bp hand; 19:44 Follow up: IV Status: Completed infusion bs2 18:10 Drug: Lovenox (enoxaparin) 1 mg/kg Route: Sub-Q; Site: right lower abdomen; bp 18:21 Follow up: Response: No adverse reaction bp 19:35 CANCELLED (wrong providerr): fentaNYL (PF) 25 mcg IVP once; RASS on ADMIN: Combtv4, bs2 Very Agttd3, Agttd2, Rstlss1, AlertClm0, Drwsy-1, Lt Sdtn-2, Mod Sdtn-3, Dp Sdtn-4, UnArsble-5 19:44 Drug: fentaNYL (PF) 25 mcg Route: IVP; Site: left hand; bs2 22:14 Follow up: Response: No adverse reaction; Pain is unchanged, physician notified bs2 21:54 Drug: amiodarone 900 mg, D5W 500 ml Route: IVPB; Rate: 1 mg/min; Site: left subclavian; bs2 22:15 Follow up: IV Status: Infusion continued upon admission bs2 Outcome: 18:40 Decision to Hospitalize by Provider. cp 22:13 Admitted to Tele Other pt is ER hold bs2 22:13 Condition: stable 22:13 Instructed on the need for admit. 04/26 04:51 Patient left the ED. em Signatures: Dispatcher [employer] EDJace Owens, RN RN em Radha Price Peter Rosado PA PA jr8 Page, Corey, PA PA cp Martinez, [facility] Tyshawn Rodríguez, [place] RN Dani Lazar RN RN ll1 Tameka Freitas, [place] RN bs2 Corrections: (The following items were deleted from the chart) 04/25 15:55 15:37 Chief complaint: Patient states: SOB for 2 days. Was admitted last month for ll1 fluid around her heart, states is feels the same. No fever. ll1 17:54 15:37 BP 122 / 106; Pulse 163bpm; Resp 30bpm; Pulse Ox 85% RA; Temp 96.4F Temporal; bp Pain 5/10; ll1 18:57 17:54 CORONAVIRUS+MR.LAB.MADELAINE drawn and sent. bp EDMS
[2021-04-25 18:53] LABS: Arterial Blood Carboxyhemoglob 2.3 % (0-1.5); Blood Gas Oxyhemoglobin 88.5 % (94-97); Blood O2 Saturation 91.3 % (92-98.5)
[2021-04-25] MEDS ORDERED: AMIODARONE HCL 900 MG in Dextrose 5%-Water 482 ML IV SCH (19:00)
[2021-04-25] MEDS ORDERED: FENTANYL CITR 100 MCG/2 ML ONE ×2 (20:03→23:20)
--- NOTE | 2021-04-25 20:43 | P.HP ---
Certification for Inpatient Patient admitted to: Inpatient With expected LOS: >2 Midnights Patient will require the following post-hospital care: None Practitioner: I am a practitioner with admitting privileges, knowledge of patient current condition, hospital course, and medical plan of care. Services: Services provided to patient in accordance with Admission requirements found in Title 42 Section 412.3 of the Code of Federal Regulations Patient History Date of Service: 04/25/21 Reason for admission: afib with RVR History of Present Illness: Ms. Jaffe is a 71 yo F with CHF, afib, hypothyroidism, HTN, HLD who presents with 2 days of SOB. She had COVID last month and was discharged with home O2. Recently, her O2 sats have been 94-95% so she hasn't had to use her O2. For the past 2 days, her sats have been 88% and she has required 2-3L. She also reports 8/10 left sided chest pain without radiation beginning at rest and lasting for 15-20 minutes. She reports nausea. Denies all other symptoms. She was found to be in afib with RVR upon presentation to the ED, rate 140-150s, not responsive to IV lopressor. Cardiology was consulted and decision was made to start an amiodarone drip via central line. Patient COVID+ in the ED. CXR IMPRESSION: Diffuse interstitial opacification worse than seen April 02. Scattered lower lung field alveolar opacities also present. Interstitial edema or infiltrate suspected. Viral pneumonia including COVID-19 pneumonia can have this presentation Allergies iodine Allergy (Verified 06/30/20 15:31) Anaphylaxis/Hemorrhage/Hives Home Medications: Ascorbic Acid [Vitamin C*] 500 mg PO DAILY 09/21/20 Aspirin [Aspirin EC] 81 mg PO DAILY 09/21/20 Atorvastatin Calcium [Lipitor*] 20 mg PO BEDTIME 09/21/20 Clopidogrel Bisulfate [Plavix*] 75 mg PO DAILY 09/21/20 Fenofibrate [Tricor*] 145 mg PO DAILY 09/21/20 Alprazolam [Xanax] 0.5 mg PO BID PRN #30 tablet 11/09/20 Furosemide [Lasix*] 40 mg PO BIDL 04/02/21 Levothyroxine Sodium 25 mcg PO DAILY 04/02/21 Metoprolol Tartrate 25 mg PO DAILY 04/02/21 Potassium Chloride 20 meq PO DAILY 04/02/21 Cyanocobalamin (Vitamin B-12) [Vitamin B-12] 1,000 mcg PO DAILY #90 capsule 04/04/21 Ferrous Sulfate [Iron] 325 mg PO BID #60 tablet 04/04/21 - Past Medical/Surgical History Diabetic: No -: Carotid artery disease -: HTN -: HLD -: breast cancer -: hypothyroidism -: Paroxsysmal Atrial Fib. -: CHF-diastolic -: Anemia -: mastectomy left side -: carotid endarterectomy -: back surgery lumbar fusions 2009 -: right shoulder rotator cuff repair -: hysterectomy -: colon resection -: cholecystectomy -: appendectomy, thyroidectomy, tonsillectomy Psychosocial/ Personal History: Retired, lives at home with family - Family History Mother -: Heart disease Father -: Diabetes, Cancer - Social History Smoking Status: Unknown if ever smoked Alcohol use: No CD- Drugs: No Caffeine use: Yes Place of Residence: Home Review of Systems 10-point ROS is otherwise unremarkable General: Unremarkable Eyes: Unremarkable ENT: Unremarkable Respiratory: Shortness of Breath, SOB with Excertion, As per HPI Cardiovascular: Chest Pain, As per HPI Gastrointestinal: Nausea Genitourinary: Unremarkable Musculoskeletal: Unremarkable Integumentary: Unremarkable Neurological: Unremarkable Lymphatics: Unremarkable Physical Examination - Physical Exam General: Alert HEENT: Atraumatic, PERRLA, Mucous membr. moist/pink, EOMI, Sclerae nonicteric Neck: Supple, 2+ carotid pulse no bruit, No LAD, Without JVD or thyroid abnormality Respiratory: Diminished Cardiovascular: No edema, No gallops, No rubs, No murmurs, Irregular heart rate/rhythm Gastrointestinal: Normal bowel sounds, No tenderness Musculoskeletal: No tenderness Integumentary: No rashes Neurological: Normal speech, Normal strength at 5/5 x4 extr, Normal tone, Normal affect Lymphatics: No axilla or inguinal lymphadenopathy - Studies Laboratory Data (last 24 hrs) 04/25/21 16:45: Magnesium 1.9 04/25/21 16:45: PT 13.9 H, INR 1.21, APTT 29.3 04/25/21 16:45: WBC 9.40, Hgb 10.3 L, Hct 33.1 L, Plt Count 379 04/25/21 16:45: Sodium 142, Potassium 4.1, BUN 19 H, Creatinine 1.04, Glucose 110 H, Total Bilirubin 0.9, AST 32, ALT 20, Alkaline Phosphatase 61, Lipase 74 Assessment and Plan - Problems (Diagnosis) (1) Anemia Current Visit: No Status: Chronic Qualifiers: Anemia type: unspecified type Qualified Code(s): D64.9 - Anemia, unspecified (2) CAD (coronary artery disease) Current Visit: No Status: Chronic Qualifiers: Coronary Disease-Associated Artery/Lesion type: [place] artery [place] vs. transplanted heart: [place] heart Associated angina: unspecified whether angina present Qualified Code(s): I25.10 - Atherosclerotic heart disease of [place] coronary artery without angina pectoris (3) COPD (chronic obstructive pulmonary disease) Current Visit: No Status: Chronic Qualifiers: COPD type: chronic bronchitis (4) COVID Current Visit: No Status: Acute (5) HLD (hyperlipidemia) Current Visit: No Status: Chronic Qualifiers: Hyperlipidemia type: unspecified Qualified Code(s): E78.5 - Hyperlipidemia, unspecified (6) Hypertension Current Visit: No Status: Chronic Qualifiers: Hypertension type: primary hypertension Qualified Code(s): I10 - Essential (primary) hypertension (7) Hypothyroidism Current Visit: No Status: Chronic Qualifiers: Hypothyroidism type: unspecified Qualified Code(s): E03.9 - Hypothyroidism, unspecified (8) Atrial fibrillation Current Visit: Yes Status: Acute - Plan cardiology consulted continue amiodarone drip and anticoagulation on tele, trend troponins, repeat EKG in the AM monitor BP respiratory consulted, O2 as needed daily CRP, ferritin, procalcitonn continue IV steroids, covid supplements reconcile and continue home medications Discharge Plan: Home Plan to discharge in: 48 Hours - Advance Directives Does patient have a Living Will: No Does patient have a Durable POA for Healthcare: No - Code Status/Comfort Care Code Status Assessed: Yes (full code ) Critical Care: No Time Spent Managing Pts Care (In Minutes): 70
[2021-04-25] MEDS ORDERED: NA CHLORIDE 0.9% 1,000 ML ONE (20:44)
[2021-04-25] MEDS ORDERED: FAMOTIDINE 20 MG TAB PO SCH (21:57)
[2021-04-25] MEDS ORDERED: BENZONATATE 100 MG CAP PO PRN (21:57)
[2021-04-25] MEDS ORDERED: FAMOTIDINE 20 MG TAB PO ONE (22:06)
[2021-04-25] MEDS: METHYLPREDNISOLONE 40 MG INJ IV SCH (23:11)
[2021-04-25] MEDS: ASCORBIC ACID 500 MG TABLET PO SCH (23:11)
[2021-04-25] MEDS: ATORVASTATIN 40 MG TAB PO SCH (23:11)
[2021-04-25] MEDS: MELATONIN 5 MG TABLET PO PRN (23:12)
[2021-04-25] MEDS ORDERED: FENTANYL CITR 100 MCG/2 ML IV ONE (23:12)
[2021-04-25] MEDS ORDERED: MELATONIN 5 MG TABLET PO ONE (23:21)
[2021-04-25] MEDS ORDERED: ASCORBIC ACID 500 MG TABLET ONE (23:21)
[2021-04-25] MEDS ORDERED: FAMOTIDINE 20 MG TAB ONE (23:22)
[2021-04-25] MEDS ORDERED: METHYLPREDNISOLONE 40 MG INJ ONE (23:22)
[2021-04-25] MEDS ORDERED: ATORVASTATIN 20 MG TAB ONE (23:22)
[2021-04-26] MEDS ORDERED: PROMETHAZINE INJ 25 MG/ML AMP IV ONE (01:05)
[2021-04-26] MEDS ORDERED: PROMETHAZINE INJ 25 MG/ML AMP ONE (01:23)
[2021-04-26] MEDS ORDERED: LORAZEPAM 0.5 MG TABLET ONE (02:21)
[2021-04-26] MEDS ORDERED: FENTANYL CITR 100 MCG/2 ML IV ONE (02:31)
[2021-04-26] MEDS ORDERED: FENTANYL CITR 100 MCG/2 ML ONE (02:32)
[2021-04-26] MEDS ORDERED: DIGOXIN 0.25 MG/ML AMP IV SCH ×2 (03:00→06:00)
[2021-04-26] MEDS ORDERED: LORazepam 2 MG/ML VIAL IV ONE (04:13)
[2021-04-26 05:35] LABS: Absolute Lymphocytes (CBC) 0.5 K/uL (0.7-4.9); Basophils % 0.2 % (0-1.3); Hematocrit 32.7 % (36.0-45.0); Lymphocytes % 4.9 % (15.3-44.8); MPV 8.5 fL (7.6-11.3); RBC Red Blood Cell Count 3.74 M/uL (3.86-4.86)
[2021-04-26 05:54] LABS: Albumin 3.4 g/dL (3.4-5.0); Bilirubin Total 1.8 mg/dL (0.2-1.0); C-Reactive Protein 51.4 mg/L (<3.00); Ferritin 177.2 ng/mL (8-388); Magnesium 2.2 mg/dL (1.8-2.4); Phosphorus 6.9 mg/dL (2.5-4.9); Potassium 4.7 mmol/L (3.5-5.1); Protein, Total 6.8 g/dL (6.4-8.2)
[2021-04-26] MEDS ORDERED: ENOXAPARIN 100 MG/ML SYR SQ SCH (06:00)
[2021-04-26 06:46] LABS: Anisocytosis 2+; Blood Morphology Comment NOTED (NOT SEEN); Platelet Estimate INCR; Polychromasia 1+; White Blood Cell Scan OK (OK)
[2021-04-26] MEDS: ASPIRIN EC 81 MG TAB PO SCH (08:46)
[2021-04-26] MEDS: VITAMIN D 1000 UNIT TAB PO SCH (08:46)
[2021-04-26] MEDS: THIAMINE HCL 100 MG TABLET PO SCH (08:46)
[2021-04-26] MEDS: ZINC SULFATE 220 MG CAP PO SCH (08:46)
[2021-04-26] MEDS: ASCORBIC ACID 500 MG TABLET PO SCH ×4 (08:46→20:44)
[2021-04-26] MEDS: CLOPIDOGREL 75 MG TABLET PO SCH (08:46)
[2021-04-26] MEDS: METHYLPREDNISOLONE 40 MG INJ IV SCH ×2 (08:46→20:44)
[2021-04-26] MEDS ORDERED: FUROSEMIDE 20 MG/ 2ML VIAL IV SCH (09:00)
[2021-04-26] MEDS ORDERED: AMIODARONE HCL 900 MG in Dextrose 5%-Water 482 ML IV SCH (09:00)
[2021-04-26] MEDS ORDERED: INFLUENZA VACCINE (for 6+ mo) 0.5 ML DOSE IMVAC ONE (10:00)
[2021-04-26] MEDS ORDERED: PNEUMOCOCCAL VACCINE 0.5 ML IMVAC ONE (10:00)
--- NOTE | 2021-04-26 12:41 | P.PN ---
Subjective Date of Service: 04/26/21 Chief Complaint: afib with RVR Patient reports fatigue. She is still in atrial fibrillation on amiodarone drip. Patient is requiring 5 L of oxygen with borderline SaO2-90%. She denies any chest pain. Physical Examination - Vital Signs Temperature: 97.3 F Blood Pressure: 97/75 Pulse: 117 Respirations: 21 Pulse Ox (%): 88 - Studies Laboratory Data (last 24 hrs) 04/25/21 16:45: Magnesium 1.9 04/25/21 16:45: PT 13.9 H, INR 1.21, APTT 29.3 04/25/21 16:45: WBC 9.40, Hgb 10.3 L, Hct 33.1 L, Plt Count 379 04/25/21 16:45: Sodium 142, Potassium 4.1, BUN 19 H, Creatinine 1.04, Glucose 110 H, Total Bilirubin 0.9, AST 32, ALT 20, Alkaline Phosphatase 61, Lipase 74 Microbiology Data (last 24 hrs): 04/25/21 16:30 Blood - Blood Anaerobic Blood Culture - Final Assessment And Plan - Plan Physical Examination: General: Not in acute distress. Eyes: Anicteric sclera. Conjunctiva not pale. ENT: Moist oral mucosa. Neck: Supple, no lymphadenopathy. No elevated JVD Chest: Symmetrical breathing movement. Lungs: Nonlabored breathing. Adequate breath sounds bilaterally. No rhonchi, no rales no crackles. Heart: Heart sounds 1 and 2 normal, irregular rhythm. No murmur. Abdomen: Soft, nondistended. Extremities: No pitting edema bilateral lower extremities, no calf tenderness bilaterally lower extremities, no digital cyanosis. Neurology: Oriented x3, no focal motor deficits. Psychiatry: Normal thought content, normal behavior, no agitation Skin: Warm and dry. No rashes or ulcers. Assessment: Atrial fibrillation with RVR Elevated D-dimer. Acute respiratory failure with hypoxia Acute diastolic heart failure History of COVID pneumonia. Acute renal failure. Chronic anemia Hypothyroidism COPD exacerbation Plan Continue amiodarone drip. Echocardiogram Optimize electrolytes. Keep potassium > 4 and magnesium >2. Awaiting cardiology evaluation. Obtain V/Q scan given elevated D-dimer. Troponin is negative. Continue full-dose low for possible PE. Patient reports significant iodine contrast allergy and so will avoid CTA thorax. Elevated D-dimer could be related to COVID pneumonia. I suspect she also has acute CHF from rapid AFib. Trial of IV Lasix. Continue steroid for history of COVID pneumonia and COPD exacerbation. Wean oxygen as tolerated.
--- NOTE | 2021-04-26 12:44 | P.CNS ---
Date of Consult: 04/26/21 Reason for Consult: Respiratory failure Zulema rincon coronavirus pneumonia Chief Complaint: afib with RVR History of Present Illness: Patient is 71 years of age metabolic syndrome with history of CHF ABaldev rincon admitted with worsening dyspnea diagnosed with coronavirus last month and was discharged admitted with hypoxemia chest discomfort is currently on BiPAP on amiodarone for rate control diffuse interstitial changes Allergies iodine Allergy (Verified 04/26/21 04:26) Anaphylaxis/Hemorrhage/Hives Home Medications: Ascorbic Acid [Vitamin C*] 500 mg PO DAILY 09/21/20 Aspirin [Aspirin EC] 81 mg PO DAILY 09/21/20 Atorvastatin Calcium [Lipitor*] 20 mg PO BEDTIME 09/21/20 Clopidogrel Bisulfate [Plavix*] 75 mg PO DAILY 09/21/20 Fenofibrate [Tricor*] 145 mg PO DAILY 09/21/20 Alprazolam [Xanax] 0.5 mg PO BID PRN #30 tablet 11/09/20 Furosemide [Lasix*] 40 mg PO BIDL 04/02/21 Levothyroxine Sodium 25 mcg PO DAILY 04/02/21 Metoprolol Tartrate 25 mg PO DAILY 04/02/21 Potassium Chloride 20 meq PO DAILY 04/02/21 Cyanocobalamin (Vitamin B-12) [Vitamin B-12] 1,000 mcg PO DAILY #90 capsule 04/04/21 Ferrous Sulfate [Iron] 325 mg PO BID #60 tablet 04/04/21 - Past Medical/Surgical History Diabetic: No -: Carotid artery disease -: HTN -: HLD -: breast cancer -: hypothyroidism -: Paroxsysmal Atrial Fib. -: CHF-diastolic -: Anemia -: mastectomy left side -: carotid endarterectomy -: back surgery lumbar fusions 2009 -: right shoulder rotator cuff repair -: hysterectomy -: colon resection -: cholecystectomy -: appendectomy, thyroidectomy, tonsillectomy Psychosocial/ Personal History: Retired, lives at home with family - Family History Mother Medical History: Heart disease Father Medical History: Diabetes, Cancer - Social History Smoking Status: Unknown if ever smoked Alcohol use: No CD- Drugs: No Caffeine use: No Place of Residence: Home Review of Systems is unable to be obtained Physical Examination Temp Pulse Resp BP Pulse Ox 97.3 F 117 H 21 H 97/75 88 L 04/26/21 12:41 04/26/21 12:41 04/26/21 12:41 04/26/21 12:41 04/26/21 12:41 General: Unresponsive Respiratory: Clear to auscultation bilaterally, Diminished, Crackles/rales Laboratory Data (last 24 hrs) 04/25/21 16:45: Magnesium 1.9 04/25/21 16:45: PT 13.9 H, INR 1.21, APTT 29.3 04/25/21 16:45: WBC 9.40, Hgb 10.3 L, Hct 33.1 L, Plt Count 379 04/25/21 16:45: Sodium 142, Potassium 4.1, BUN 19 H, Creatinine 1.04, Glucose 110 H, Total Bilirubin 0.9, AST 32, ALT 20, Alkaline Phosphatase 61, Lipase 74 - Problems (1) Respiratory failure Current Visit: Yes Status: Acute Plan: Patient is 71 years of age. With coronavirus pneumonia and atrial fibrillation currently unresponsive on a BiPAP rate still not controlled labs reviewed mildly anemic chest x-ray consistent with coronavirus pneumonia possibly underlying CHF BNP elevated Qualifiers: Chronicity: acute
[2021-04-26] MEDS: AMIODARONE HCL 900 MG in Dextrose 5%-Water 482 ML IV SCH (13:40)
[2021-04-26] MEDS: AZITHROMYCIN IV 500 MG in NA CHLORIDE 0.9% 250 ML IVPB SCH (13:41)
[2021-04-26] MEDS: CEFTRIAXONE 1 GM/NS 50 ML 1 GM/50 ML BAG IV SCH (13:41)
[2021-04-26] MEDS: FUROSEMIDE 40 MG/4 ML VIAL IV SCH ×2 (13:41→16:54)
[2021-04-26] MEDS: ONDANSETRON 4 MG/2 ML VIAL IV PRN (14:54)
--- NOTE | 2021-04-26 16:45 | EKG ---
Test Date: 2021-04-25 Test Time: 16:03:49 Water Superintendent: NEAL MEASUREMENT RESULTS: Intervals: Rate: 158 MT: QRSD: 134 QT: 326 QTc: 528 [place]: P: MT: QRS: -47 T: 105 INTERPRETIVE STATEMENTS: Atrial fibrillation with rapid ventricular response Left axis deviation Left bundle branch block Abnormal ECG Compared to ECG 04/02/2021 19:35:14 Left-axis deviation now present Left bundle-branch block now present Ventricular premature complex(es) no longer present ST (T wave) deviation no longer present Electronically Signed On 04-26-21 16:41:20 CDT by Joel Shaver
[2021-04-26] MEDS ORDERED: FUROSEMIDE 40 MG/4 ML VIAL IV SCH (17:00)
[2021-04-26] MEDS: MELATONIN 5 MG TABLET PO PRN (20:44)
[2021-04-26] MEDS: ATORVASTATIN 40 MG TAB PO SCH (20:44)
[2021-04-26] MEDS ORDERED: FAMOTIDINE 20 MG TAB PO SCH (21:00)
[2021-04-26] MEDS ORDERED: MORPHINE 2 MG/ML SYR IV ONE (22:24)
[2021-04-26] MEDS ORDERED: MAGNES/ALUMIN/SIMET 30ML UCUP PO ONE (22:24)
[2021-04-26] MEDS ORDERED: MORPHINE 2 MG/ML SYR ONE (23:03)
[2021-04-26] MEDS ORDERED: MAGNES/ALUMIN/SIMET 30ML UCUP ONE (23:04)
[2021-04-27] MEDS ORDERED: MORPHINE 2 MG/ML SYR IV ONE (03:08)
[2021-04-27] MEDS: ONDANSETRON 4 MG/2 ML VIAL IV PRN (03:37)
[2021-04-27] MEDS: AMIODARONE HCL 900 MG in Dextrose 5%-Water 482 ML IV SCH ×2 (04:31→19:42)
[2021-04-27] MEDS ORDERED: FENTANYL CITR 100 MCG/2 ML IV ONE (05:00)
[2021-04-27] MEDS ORDERED: DIGOXIN 0.25 MG/ML AMP IV ONE (05:00)
[2021-04-27] MEDS: ENOXAPARIN 100 MG/ML SYR SQ SCH (05:02)
[2021-04-27] MEDS ORDERED: MIDAZOLAM HCL 2 MG/2 ML INJ IV PRN (05:13)
[2021-04-27] MEDS ORDERED: LORazepam 2 MG/ML VIAL IV PRN (05:13)
[2021-04-27] MEDS ORDERED: propofoL 1,000 MG/100 ML VIAL IV PRN (05:13)
[2021-04-27] MEDS ORDERED: HALOPERIDOL LACT 5 MG/ML INJ IV PRN (05:13)
[2021-04-27] MEDS ORDERED: DIGOXIN 0.25 MG/ML AMP ONE (05:22)
[2021-04-27] MEDS ORDERED: FENTANYL CITR 100 MCG/2 ML ONE (05:23)
[2021-04-27] MEDS ORDERED: RSI MEDICATION KIT IV ONE (05:27)
[2021-04-27] MEDS ORDERED: propofoL 500 MG/50 ML ML IV ONE (06:06)
[2021-04-27 06:22] LABS: Basophils % 0.1 % (0-1.3); Hematocrit 35.3 % (36.0-45.0); Lymphocytes % 4.4 % (15.3-44.8); RBC Red Blood Cell Count 4.04 M/uL (3.86-4.86)
[2021-04-27 06:39] LABS: Albumin 3.5 g/dL (3.4-5.0); Bilirubin Total 0.8 mg/dL (0.2-1.0); Magnesium 2.6 mg/dL (1.8-2.4); Phosphorus 6.2 mg/dL (2.5-4.9); Potassium 5.1 mmol/L (3.5-5.1); Protein, Total 7.2 g/dL (6.4-8.2)
--- NOTE | 2021-04-27 07:36 | ECHO ---
HEIGHT: 5 ft 6 in WEIGHT: 227 lb 0 oz DATE OF STUDY: 04/26/[address]: Reece Hackett 2-DIMENSIONAL: YES M.MODE: YES DOPPLER: YES COLOR FLOW: YES TDS: NO PORTABLE: YES DEFINITY: NO BUBBLE STUDY: NO DIAGNOSIS: ATRIAL FIBRILLATION CARDIAC HISTORY: CATHERIZATION: NO SURGERY: NO PROSTHETIC VALVE: NO PACEMAKER: NO MEASUREMENTS (cm) DIASTOLIC (NORMALS) SYSTOLIC (NORMALS) IVSd 1.1 (0.6-1.2) LA Diam 4.4 (1.9-4.0) LVEF 63% LVIDd 4.8 (3.5-5.7) LVIDs 3.2 (2.0-3.5) %FS % LVPWd 1.2 (0.6-1.2) Ao Diam 2.6 (2.0-3.7) 2 DIMENSIONAL ASSESSMENT: RIGHT ATRIUM: NORMAL LEFT ATRIUM: DILATED RIGHT VENTRICLE: NORMAL LEFT VENTRICLE: NORMAL TRICUSPID VALVE: NORMAL MITRAL VALVE: NORMAL PULMONIC VALVE: NORMAL AORTIC VALVE: NORMAL PERICARDIAL EFFUSION: NONE AORTIC ROOT: NORMAL LEFT VENTRICULAR WALL MOTION: NORMAL DOPPLER/COLOR FLOW: MILD TRICUSPID REGURGITATION. MODERATE PULMONARY HYPERTENSION. COMMENTS: LEFT ATRIAL ENLARGEMENT. NORMAL LEFT VENTRICULAR EJECTION FRACTION AND SIZE. MILD TRICUSPID REGURGITATION. MODERATE PULMONARY HYPERTENSION. RIGHT VENTRICULAR SYSTOLIC PRESSURE 44 mmHg. TECHNOLOGIST: Stuart DELGADO
[2021-04-27] MEDS: propofoL 500 MG/50 ML ML IV PRN ×4 (07:48→22:50)
[2021-04-27 08:47] LABS: Anisocytosis 1+; Blood Morphology Comment NOTED (NOT SEEN); Macrocytosis 1+; Platelet Estimate ADEQ
[2021-04-27] MEDS: THIAMINE HCL 100 MG TABLET PO SCH (08:53)
[2021-04-27] MEDS: VITAMIN D 1000 UNIT TAB PO SCH (08:53)
[2021-04-27] MEDS: ASPIRIN EC 81 MG TAB PO SCH (08:53)
[2021-04-27] MEDS: FAMOTIDINE 20 MG/2 ML VIAL IV SCH ×2 (08:54→19:43)
[2021-04-27] MEDS: METHYLPREDNISOLONE 40 MG INJ IV SCH ×2 (08:54→19:43)
[2021-04-27] MEDS: CEFTRIAXONE 1 GM/NS 50 ML 1 GM/50 ML BAG IV SCH (08:54)
[2021-04-27] MEDS: CLOPIDOGREL 75 MG TABLET PO SCH (08:54)
[2021-04-27] MEDS: ASCORBIC ACID 500 MG TABLET PO SCH (08:54)
[2021-04-27] MEDS: ZINC SULFATE 220 MG CAP PO SCH (08:54)
[2021-04-27] MEDS: FUROSEMIDE 40 MG/4 ML VIAL IV SCH (08:55)
[2021-04-27] MEDS ORDERED: FAMOTIDINE 20 MG/2 ML VIAL IV SCH (09:00)
[2021-04-27] MEDS: AZITHROMYCIN IV 500 MG in NA CHLORIDE 0.9% 250 ML IVPB SCH (09:34)
[2021-04-27] MEDS ORDERED: NA CHLORIDE 0.9% 250 ML ONE (09:36)
[2021-04-27 11:04] LABS: Arterial Blood Carboxyhemoglob 1.3 % (0-1.5); Blood Gas Oxyhemoglobin 82.8 % (94-97); Blood O2 Saturation 84.7 % (92-98.5)
[2021-04-27] MEDS ORDERED: ETOMIDATE 20 MG/10 ML VIAL IV ONE (11:30)
[2021-04-27] MEDS ORDERED: SUCCINYLCHOLINE 20 MG/ML (10 ML) IV ONE (11:30)
--- NOTE | 2021-04-27 12:17 | RAD REPORT ---
EXAM DESCRIPTION: RAD - Chest Single View - 04/26/2021 12:54 pm CLINICAL HISTORY: SOB Image was resubmitted for interpretation due to technical malfunctions with the original interpretati on. COMPARISON: Single-view chest April 25 TECHNIQUE: AP portable chest image was obtained 04/26/2021 12:54 pm . FINDINGS: No peripheral mass or consolidation. Perihilar interstitial opacification is present along with vascular engorgement. Heart size is upper normal. Trachea is in the midline. No measurable pleu ral effusion and no pneumothorax. No acute bony abnormality seen. No acute aortic findings suspected. IMPRESSION: Mild to moderate CHF/ volume overload pattern is present.
--- NOTE | 2021-04-27 12:19 | RAD REPORT ---
EXAM DESCRIPTION: Felicia Single View04/27/2021 5:39 am CLINICAL HISTORY: Desatting COMPARISON: 04/26/2021 FINDINGS: Single frontal view of the chest. Tubes and lines: Endotracheal tube with tip 4 cm above the ailyn and 1 cm above the level of the aor tic arch. Leads overlie the chest. Left subclavian central venous catheter tip in the SVC. NG tube wi th tip below the diaphragm. Cardiomediastinal silhouette: Stable Lungs: Interval increase in multifocal bilateral airspace and interstitial opacities. No pneumothorax or large effusion. Bones: Stable. Upper abdomen: Stable. IMPRESSION: 1. Interval increase in multifocal bilateral interstitial and airspace opacities which m ay be related to acute pneumonic process or pulmonary edema. Electronically signed by: Praveen Govea 04/27/2021 5:57 AM CDT Due to temporary technical issues with the PACS/Fluency reporting system, reports are being signed by the in house radiologist without review as a courtesy to ensure prompt reporting. The interpreting r adiologist is fully responsible for the content of the report.
--- NOTE | 2021-04-27 12:39 | P.PN ---
Subjective Date of Service: 04/27/21 Chief Complaint: Respiratory failure Patient's condition deteriorated last night had to be intubated currently on a propofol drip unresponsive Review of Systems is unable to be obtained Physical Examination - Vital Signs Temperature: 96.8 F Blood Pressure: 139/73 Pulse: 95 Respirations: 32 Pulse Ox (%): 94 - Physical Exam General: Unresponsive - Studies Microbiology Data (last 24 hrs): 04/25/21 16:30 Blood - Blood Anaerobic Blood Culture - Final Assessment & Plan - Problems (Diagnosis) (1) Respiratory failure Current Visit: Yes Status: Acute Plan: Respiratory failure patient on a ventilator blood gases reviewed patient is hypercapnic acidotic gases done at 7:00 this morning patient's vent settings will change to pressure control of 20 above 10 repeat arterial blood gases patient is hypoventilated white count is now elevated repeat chest x-ray shows worsening changes right worse than the left endotracheal tube needs to be advanced shows cardiomegaly probably prerenal component start on tube feeds Qualifiers: Chronicity: acute
[2021-04-27 13:44] LABS: Arterial Blood Carboxyhemoglob 2.1 % (0-1.5); Blood O2 Saturation 98.9 % (92-98.5)
--- NOTE | 2021-04-27 14:48 | P.PN ---
Subjective Date of Service: 04/27/21 Chief Complaint: Respiratory failure Patient developed respiratory distress and CO2 retention which did not respond to BiPAP last night. She was subsequently intubated. She remain on amiodarone drip for atrial fib with RVR. Leukocytosis is much worse today. Physical Examination - Vital Signs Temperature: 96.8 F Blood Pressure: 139/73 Pulse: 95 Respirations: 32 Pulse Ox (%): 94 - Physical Exam General: Other (Sedated) HEENT: Other (Intubate) - Studies Microbiology Data (last 24 hrs): 04/25/21 16:30 Blood - Blood Anaerobic Blood Culture - Final Assessment And Plan - Plan Physical Examination: General: Sedated ENT: Intubated. Neck: No elevated JVD Lungs: On mechanical ventilation. Tachypneic. Heart: Heart sounds 1 and 2 normal, irregular rhythm. No murmur. Abdomen: Soft, nondistended. Extremities: No pitting edema bilateral lower extremities, no digital cyanosis. Neurology: Sedated. Skin: Warm and dry. No rashes or ulcers. Assessment: Atrial fibrillation with RVR Elevated D-dimer. Acute respiratory failure with hypoxia Acute diastolic heart failure History of COVID pneumonia. Acute renal failure. Chronic anemia Hypothyroidism COPD exacerbation Plan Continue amiodarone drip. Echocardiogram: Normal EF, moderate pulmonary hypertension. Optimize electrolytes. Keep potassium > 4 and magnesium >2. cardiology-Dr. Shaver is following. Continue amiodarone drip. Start digoxin via NGT. Obtain V/Q scan given elevated D-dimer. Troponin is negative. Continue full-dose low for possible PE. Elevated D-dimer could be related to COVID pneumonia. I suspect she also has acute CHF from rapid AFib. IV Lasix to be given intermittently. Continue steroid for history of COVID pneumonia and COPD exacerbation. Pulmonary is following. Leukocytosis is worse. Blood cultures: No growth to date. Obtain sputum culture. Empiric antibiotics. Monitor CBC and electrolytes.
--- NOTE | 2021-04-27 14:54 | PN ---
Date of Progress Note: 04/27/2021 Ms. Jaffe had came in with COVID pneumonia severe, got intubated last night. Has a history of carotid artery disease, diastolic congestive heart failure, normal echocardiogram yesterday, hypertension, d yslipidemia, history of tobacco use. Again, she got intubated because of severe COVID. Remains in a trial fibrillation, rapid ventricular response, on IV amiodarone 1 mg/minute after a bolus. We will initiate digoxin daily, maybe add IV Lopressor p.r.n. as long as blood pressure tolerated. If she st ays in atrial fibrillation and becomes hemodynamically compromised, we will consider cardioversion. I think her atrial fibrillation is secondary to hypoxia and pneumonia. Echocardiogram showed a nicholas l ejection fraction. Continue anticoagulation and present regimen. CHAR/MARK Voice ID: [id number] Report ID: [id number]
--- NOTE | 2021-04-27 15:45 | CON ---
Date of Consultation: 04/26/2021 Admitted on 04/25/[address] Benitez. I saw the patient on 04/26/2021 in the ICU. Reason For Consultation: Atrial fibrillation. History Of Present Illness: Ms. Jaffe is 71. She is very well known to me from office visit. Has fragoso d a normal stress test in the past. Had severe carotid disease, status post recent carotid endartere ctomy. She has hypertension, dyslipidemia, chronic diastolic congestive heart failure, paroxysmal at rial fibrillation, history of tobacco use, and family history of heart disease. Comes in with COVID pneumonia, atrial fibrillation, hypoxia. Has already been placed on IV amiodarone after they called me. She is on 0.5 mg/minute after a bolus. She mainly complained of fatigue and shortness of breath . Allergies: NONE. Review of Systems: Negative. Social History: Positive for tobacco use. Family History: Positive for heart disease. Medications: Listed by Dr. Benitez. Physical Examination: General: She appeared to be in moderate respiratory distress, hypoxic. Vital Signs: Atrial fibrillation at a rate of 140, afebrile, normal blood pressure. HEENT: Negative. Neck: Supple with no bruit. Chest: Reveals crackles both bases. Cardiac: Revealed atrial fibrillation. Abdomen: Obese. Extremities: Revealed 1+ edema. Diagnostic Data: Positive for COVID, atrial fibrillation, elevated creatinine. Impression And Plan: 1.Atrial fibrillation, needs to be treated with IV amiodarone. She needs to be treated with Lovenox . We could always add digoxin and beta-reno. We will consider cardioversion later. Another echo cardiogram is pending. 2.Severe COVID pneumonia, hypoxic. The patient does not look very well, may need to be intubated la ter. 3.Renal failure, needs to be addressed. I do not think she is in congestive heart failure. I think we should hold her Lasix, consider Nephrology consultation. Rest of her problems including CVD, hyp ertension, dyslipidemia are stable at this point. I will continue to follow her along. CHAR/MARK Voice ID: [id number] Report ID: [id number]
[2021-04-27] MEDS: ATORVASTATIN 40 MG TAB PO SCH (19:43)
[2021-04-28] MEDS: propofoL 500 MG/50 ML ML IV PRN ×5 (02:12→23:25)
[2021-04-28 05:19] LABS: Absolute Lymphocytes (CBC) 0.8 K/uL (0.7-4.9); Basophils % 0.2 % (0-1.3); Hematocrit 31.2 % (36.0-45.0); MPV 8.7 fL (7.6-11.3); RBC Red Blood Cell Count 3.65 M/uL (3.86-4.86)
[2021-04-28 05:32] LABS: Albumin 2.6 g/dL (3.4-5.0); Bilirubin Total 0.8 mg/dL (0.2-1.0); Potassium 4.9 mmol/L (3.5-5.1); Protein, Total 6.1 g/dL (6.4-8.2)
[2021-04-28 05:36] LABS: Arterial Blood Carboxyhemoglob 2.1 % (0-1.5); Blood Gas Oxyhemoglobin 91.8 % (94-97); Blood O2 Saturation 94.7 % (92-98.5)
[2021-04-28] MEDS: ENOXAPARIN 100 MG/ML SYR SQ SCH (05:36)
--- NOTE | 2021-04-28 07:18 | RAD REPORT ---
EXAM DESCRIPTION: Felicia Single View04/28/2021 6:56 am CLINICAL HISTORY: Respiratory distress COMPARISON: April 27, 2021 FINDINGS: Mild improvement in right no significant change in left pulmonary opacities. Heart remains enlarged. Endotracheal tube with its tip 14 millimeters above the top of the aortic arch. Nasogastric tube ente rs stomach. IMPRESSION: Mild improvement in right and no significant change in left pulmonary opacities.
[2021-04-28] MEDS: CEFTRIAXONE 1 GM/NS 50 ML 1 GM/50 ML BAG IV SCH (08:49)
[2021-04-28] MEDS: ASPIRIN EC 81 MG TAB PO SCH (08:49)
[2021-04-28] MEDS: VITAMIN D 1000 UNIT TAB PO SCH (08:50)
[2021-04-28] MEDS: THIAMINE HCL 100 MG TABLET PO SCH (08:50)
[2021-04-28] MEDS: CLOPIDOGREL 75 MG TABLET PO SCH (08:50)
[2021-04-28] MEDS: FAMOTIDINE 20 MG/2 ML VIAL IV SCH ×2 (08:50→20:16)
[2021-04-28] MEDS: DIGOXIN 0.25 MG TABLET PO SCH (08:50)
[2021-04-28] MEDS: METHYLPREDNISOLONE 40 MG INJ IV SCH ×2 (08:51→20:16)
[2021-04-28] MEDS: ZINC SULFATE 220 MG CAP PO SCH (08:51)
[2021-04-28] MEDS: AMIODARONE HCL 900 MG in Dextrose 5%-Water 482 ML IV SCH (11:43)
--- NOTE | 2021-04-28 12:31 | P.PN ---
Subjective Date of Service: 04/28/21 Chief Complaint: Respiratory failure Condition improving patient is more responsive FiO2 requirements have declined patient is on SIMV Review of Systems is unable to be obtained Physical Examination - Vital Signs Temperature: 97.2 F Blood Pressure: 122/59 Pulse: 97 Respirations: 21 Pulse Ox (%): 92 - Physical Exam General: Unresponsive Assessment & Plan - Problems (Diagnosis) (1) Respiratory failure Current Visit: Yes Status: Acute Plan: Patient is doing better plan to wean off the ventilator renal function is worse white count is declining trial of IV fluids most likely prerenal renal ultrasound urinalysis Lasix has been discontinued changed to NG Eliquis DC Lovenox Qualifiers: Chronicity: acute
[2021-04-28 12:42] LABS: Arterial Blood Carboxyhemoglob 1.9 % (0-1.5); Blood Gas Oxyhemoglobin 80.3 % (94-97); Blood O2 Saturation 82.5 % (92-98.5)
[2021-04-28] MEDS: ACETAMINOPHEN 500 MG TAB PO PRN (12:57)
[2021-04-28] MEDS ORDERED: NACHLORIDE 0.45% 1,000 ML IV SCH (13:00)
--- NOTE | 2021-04-28 13:18 | P.PN ---
Subjective Date of Service: 04/28/21 Chief Complaint: Respiratory failure Patient intubated. Anasarca has improved but renal function is worse. Patient stable on 40% FiO2 Leukocytosis trended down. Physical Examination - Vital Signs Temperature: 97.2 F Blood Pressure: 122/59 Pulse: 97 Respirations: 21 Pulse Ox (%): 92 - Physical Exam General: Other (Sedated) HEENT: Other (Intubated) Assessment And Plan - Plan Physical Examination: General: Sedated ENT: Intubated. Neck: No elevated JVD Lungs: On mechanical ventilation. Heart: Heart sounds 1 and 2 normal, irregular rhythm. No murmur. Abdomen: Soft, nondistended. Extremities: Lower extremity edema improved, no digital cyanosis. Neurology: Sedated. Skin: Warm and dry. No rashes or ulcers. Assessment: Atrial fibrillation with RVR Elevated D-dimer. Acute respiratory failure with hypoxia Acute diastolic heart failure History of COVID pneumonia. Acute renal failure. Chronic anemia Hypothyroidism COPD exacerbation Plan Continue amiodarone drip. Echocardiogram: Normal EF, moderate pulmonary hypertension. Optimize electrolytes. Keep potassium > 4 and magnesium >2. cardiology-Dr. Shaver is following. Continue amiodarone drip. Continue digoxin. Plan is to transition to metoprolol per cardiology. Continue full-dose low for possible PE. Elevated D-dimer could be related to COVID pneumonia. I suspect she also has acute CHF from rapid AFib. Status post IV Lasix Lasix discontinued due to rising creatinine. Nephrology consulted for ANDREA. Full-dose Lovenox changed to renally dosed Eliquis Continue steroid for history of COVID pneumonia and COPD exacerbation. Pulmonary is following. Is trending down. Blood cultures: No growth to date. Continue antibiotics. Monitor CBC and electrolytes.
[2021-04-28] MEDS ORDERED: SODIUM CHLORIDE 0.9% 10ML INJ IV PRN (14:16)
[2021-04-28] MEDS: FUROSEMIDE 100 MG in NA CHLORIDE 0.9% 90 ML IV SCH (14:59)
[2021-04-28 15:42] LABS: CKMB Creatine Kinase MB 3.3 ng/mL (1.0-3.6); Uric Acid 14.7 mg/dL (2.6-6.0)
--- NOTE | 2021-04-28 16:10 | RAD REPORT ---
EXAM DESCRIPTION: US - Renal Ultrasound-Complete - 04/28/2021 3:16 pm CLINICAL HISTORY: Acute renal failure COMPARISON: Abdomen Pelvis W Contrast dated 03/29/2020; Thorax Wo Con dated 09/20/2020 FINDINGS: Both kidneys are normal in size, shape and echotexture. The right kidney measures 10.1 cm. No hydronephrosis, focal mass or perinephric fluid. The left kidney measures 10.9 C. No hydronephrosis, focal mass or perinephric fluid. IMPRESSION: No evidence hydronephrosis. Unremarkable renal ultrasound.
--- NOTE | 2021-04-28 17:16 | CON ---
Date of Consultation: 04/28/2021 Reason For Consultation: Elevated BUN and creatinine, fluid management, over volume. History Of Present Illness: All the information has been obtained from the record and from [facility] as the patient is intubated, sedated. This is a pleasant unfortunate 71-year-old female wit h significant past medical history of carotid stenosis, CAD complicated with congestive heart failure , diastolic dysfunction, ejection fraction, on this admission showing pulmonary hypertension with pre served ejection fraction, hypertension, hyperlipidemia, carotid stenosis, COVID pneumonia, paroxysmal AFib, COPD with chronic smoker, the patient recently admitted back in March for COVID pneumonia, discharged on home O2. Apparently, the patient came with shortness of breath, desaturating down to 88 with AFib with RVR. For that reason, we have been consulted as kidney function started to deterio rate. Reviewing the record for the patient upon arrival to the hospital on the of the month, cr gailinine 1 with GFR of 52. The patient's baseline creatinine when she was discharged from the hospit al 1.2 with GFR of 42. The patient's creatinine gradually trended up on the at 2.2, currently 3 .5. The patient's respiratory status has been deteriorated significantly. The patient intubated. T he patient still has good urine output. Reviewing the record for the patient, there is no exposure t o any contrast. There is no hypotension. The patient was placed on Solu-Medrol and IV fluid. The p atient at home had been on Lasix with potassium supplement. There is no mention for any nonsteroidal intake. The patient received couple of doses of Lasix and amiodarone. Past Medical History: Includes; 1.Coronary artery disease complicated with congestive heart failure, diastolic dysfunction with pulm onary hypertension. 2.AFib with RVR. 3.Hypertension. 4.Hyperlipidemia. 5.Chronic kidney disease, baseline creatinine 1.2, GFR of 42 as of March 2021. 6.Chronic smoker, COPD. Home Medications: Include vitamin C, aspirin, atorvastatin, Plavix, fenofibrate, alprazolam, Lasix, levothyroxine, metoprolol, KCl, ferrous sulfate. Family History: Positive for hypertension and diabetes. Social History: Smoker. Denied alcohol. Denied drugs abuse. Allergies: TO IODINE. Review of Systems: None obtainable. Physical Examination: Vital Signs: When I saw the patient; the patient on vent, blood pressure 122/59, pulse of 120, tachy cardic. Chest: Crackles bilateral. Heart: S1, S2. Tachycardic, regular. Abdomen: Soft, nontender. Morbidly obese. Could not appreciate any organomegaly. Extremities: Trace edema. Neuro: The patient is sedated. Moving extremities without any focality. Laboratory Data: As of April 02; creatinine 1.1, GFR of 46. WBC 8.6, H and H 7.8/25.3. Upon admission to the hospital on the 25 of April; H and H 10.3/33.1, platelets 379, eosinophil of 0. Sodium 142, potassium 4.1, bicarb 26, BUN 19, creatinine 1, GFR of 52. Today lab data; sodium 135, potassium 4.9, bicarb 25, BUN 70, creatinine 3.7, GFR of 12, calcium 8.4. Uric acid is still pending . Albumin 2.6. Corrected calcium is 9.6. TSH 0.2. Urinalysis; specific gravity none obtainable ye t. COVID positive again. WBC 15.6, H and H 9.8/31.2, platelets 330. Eosinophil is still 0. Current Medications: The patient on include IV fluid with half-normal, ceftriaxone, aspirin, Eliquis , Plavix, amiodarone, digoxin, lorazepam, Pepcid, normal saline, cholecalciferol, thiamin. Assessment And Plan: 1.Acute kidney injury secondary to prerenal, secondary to cardiorenal, over volume with respiratory distress, questionable poor perfusion secondary to atrial fibrillation, again cardiorenal. 2.To rule out atheroembolic/embolic given the presence of atrial fibrillation. 3.To rule out pulmonary, renal given the presence of exacerbation of her respiratory status. 4.To rule out COVID pneumonia. I am going to go ahead and discontinue IV fluid. 5.Start the patient on Lasix drip. We will send for serology workup and we will monitor the patient in the presence of the anemia. Light chain disease to be ruled out. We will send for serum protein electrophoresis. 6.Please avoid any MELA inhibitor or ARB for the time being. 7.If kidney function continued to deteriorate, the patient may need renal replacement therapy for be tter fluid status management. 8.Anemia with the presence of coffee-ground. Better to hold on anticoagulation. Start the patient on heparin drip and we will monitor the patient closely. We will send for H and H every 6 hours. 9.Hyponatremia secondary to dilutional secondary to renal failure, cardiorenal. Discontinue IV flui d, start the patient on Lasix drip. 10.Acidosis, metabolic acidosis with hypercapnic respiratory acidosis secondary to renal failure and hypoxemia. No need for bicarb drip. 11.Chronic obstructive pulmonary disease exacerbation as by primary and Pulmonary. 12.Respiratory failure, multifactorial, secondary to over volume/cardiorenal/activation of her COVID . We will follow up with Pulmonary. We will try to establish better volume control with Lasix drip and if needed with dialysis. 13.COVID pneumonia as by primary. 14.Atrial fibrillation with rapid ventricular response as by Cardiology. Again better to avoid long -acting anticoagulation. We will start the patient on heparin drip. 15.Chronic obstructive pulmonary disease with possible exacerbation as by Pulmonary. Time spent examining the patient, [id number], reviewing data including Cardiology and lab, placing order, discussing the case with the nursing, discussing the case with our subspecialty including hospitalist 75 minutes. HALEY Voice ID: [id number] Report ID: [id number]
[2021-04-28 18:59] LABS: UR PROTEIN 15.4 mg/dL (<11.9); Urine Protein/Creatinine Ratio 0.32 ratio (<0.15)
[2021-04-28] MEDS: FENTANYL CITR 100 MCG/2 ML IV PRN (20:15)
[2021-04-28] MEDS: PANTOPRAZOLE 40 MG INJ IVP SCH (20:16)
[2021-04-28] MEDS ORDERED: APIXABAN 5 MG TABLET PO SCH (21:00)
[2021-04-29] MEDS: FUROSEMIDE 100 MG in NA CHLORIDE 0.9% 90 ML IV SCH ×3 (00:01→21:19)
[2021-04-29] MEDS: AMIODARONE HCL 900 MG in Dextrose 5%-Water 482 ML IV SCH ×2 (02:36→17:45)
[2021-04-29] MEDS: propofoL 500 MG/50 ML ML IV PRN ×2 (03:51→07:58)
[2021-04-29] MEDS: FENTANYL CITR 100 MCG/2 ML IV PRN (03:52)
[2021-04-29 05:58] LABS: Absolute Lymphocytes (CBC) 0.6 K/uL (0.7-4.9); Basophils % 0.1 % (0-1.3); Hematocrit 30.1 % (36.0-45.0); Lymphocytes % 5.9 % (15.3-44.8); MPV 8.8 fL (7.6-11.3); RBC Red Blood Cell Count 3.57 M/uL (3.86-4.86)
[2021-04-29 06:01] VITALS: BMI 35.8
[2021-04-29 06:37] LABS: Albumin 2.5 g/dL (3.4-5.0); Bilirubin Total 0.9 mg/dL (0.2-1.0); Folic Acid, (Folate) 7.6 ng/mL (3.1-17.5); Magnesium 2.8 mg/dL (1.8-2.4); Phosphorus 5.3 mg/dL (2.5-4.9); Potassium 4.4 mmol/L (3.5-5.1); Protein, Total 5.9 g/dL (6.4-8.2)
--- NOTE | 2021-04-29 06:37 | P.PN ---
Subjective Date of Service: 04/29/21 Chief Complaint: Respiratory failure Subjective: Other (Extubated at lunch time today) Physical Examination - Vital Signs Temperature: 97.1 F Blood Pressure: 108/47 Pulse: 77 Respirations: 18 Pulse Ox (%): 98 - Physical Exam General: Other (Appears acutely ill) HEENT: Atraumatic, Normocephalic Neck: Supple, JVD not distended Respiratory: Other (symmetric chest expansion) Cardiovascular: No rubs, No murmurs Gastrointestinal: Soft and benign Musculoskeletal: No clubbing Integumentary: No warmth Neurological: Normal tone Urinary: Sarkar catheter External genitalia: Deferred Rectal: Deferred Assessment And Plan - Plan # ANDREA 2/2 ischemic ATN/poor forward flow from rapid afib Good urine output SCr rise now plateaued HR now better controlled on amio gtt Cont sarkar Strict I/O Monitor renal panel # Hypotension Resolved HR control via Amio # HyperPO4 Monitor # Afib On Amio gtt Mngt per Cardio # Acute respiratory failure 2/2 covid pna + rapid afib HR now better controlled Extubated on 04/29 Further mngt per Pulmo service
[2021-04-29] MEDS: CEFTRIAXONE 1 GM/NS 50 ML 1 GM/50 ML BAG IV SCH (08:41)
[2021-04-29] MEDS: FAMOTIDINE 20 MG/2 ML VIAL IV SCH ×2 (08:42→21:19)
[2021-04-29] MEDS: PANTOPRAZOLE 40 MG INJ IVP SCH (08:42)
[2021-04-29] MEDS: THIAMINE HCL 100 MG TABLET PO SCH (08:42)
[2021-04-29] MEDS: VITAMIN D 1000 UNIT TAB PO SCH (08:42)
[2021-04-29] MEDS: METHYLPREDNISOLONE 40 MG INJ IV SCH ×2 (08:42→21:19)
[2021-04-29] MEDS: DIGOXIN 0.25 MG TABLET PO SCH (08:43)
[2021-04-29 09:13] LABS: Rheumatoid Factor NEG (NEG)
--- NOTE | 2021-04-29 11:10 | RAD REPORT ---
EXAM DESCRIPTION: RAD - Chest Single View - 04/29/2021 10:08 am CLINICAL HISTORY: Aspiration precautions COMPARISON: April 28 TECHNIQUE: AP portable chest image was obtained 04/29/2021 10:08 am . FINDINGS: Endotracheal tube tip is 1 centimeter above the aortic arch. Tip is positioned between the clavicle heads and aortic arch which is still an acceptable range. This is 5 cm above the ailyn. NG tube extends below the diaphragm. Tip is in the proximal stomach. The side port is near the GE jose ction. Left subclavian central line tip is mid SVC, good positioning. Interstitial and alveolar opacities are present, greater on the left, not substantially different fro m prior day imaging. Cardiomegaly and mild vascular engorgement remain. Trachea is midline. No pneumothorax or large pleur al effusion. IMPRESSION: Cardiomegaly, vascular engorgement and interstitial edema or infiltrate pattern remain. Cardiopulmonary findings are not clearly different from prior day study. Retrocardiac left base is mo re limited in detail. Tubes and lines are unchanged as detailed.
[2021-04-29] MEDS ORDERED: IPRATROPIUM BROM 0.5MG/2.5ML NEB PRN (13:19)
[2021-04-29] MEDS ORDERED: LEVALBUTEROL 1.25 MG/3 ML NEB NEB PRN (13:20)
[2021-04-29 13:50] LABS: Blood O2 Saturation 93.9 % (92-98.5)
--- NOTE | 2021-04-29 14:29 | P.PN ---
Subjective Date of Service: 04/29/21 Chief Complaint: Respiratory failure Patient was extubated yesterday but went into a panic attack and reintubated. She also had coffee-ground emesis. Anasarca has improved. Serum creatinine plateaued. Patient stable on 40% FiO2 Leukocytosis resolved. Physical Examination - Vital Signs Temperature: 97.1 F Blood Pressure: 108/47 Pulse: 77 Respirations: 18 Pulse Ox (%): 98 - Physical Exam General: Other (Sedated) HEENT: Other (Intubated) Assessment And Plan - Plan Physical Examination: General: Sedated ENT: Intubated. NG tube with coffee-ground aspirate. Neck: No elevated JVD Lungs: On mechanical ventilation. Heart: Heart sounds 1 and 2 normal, irregular rhythm. No murmur. Abdomen: Soft, nondistended. Extremities: Lower extremity edema improved, no digital cyanosis. Neurology: Sedated. Skin: Warm and dry. No rashes or ulcers. Assessment: Atrial fibrillation with RVR Elevated D-dimer. Acute respiratory failure with hypoxia Acute diastolic heart failure History of COVID pneumonia. Acute renal failure. Chronic anemia Hypothyroidism COPD exacerbation Plan On amiodarone drip. Echocardiogram: Normal EF, moderate pulmonary hypertension. Magnesium and potassium levels optimized cardiology to follow to transition amiodarone drip to oral medication rate control or rhythm control medication. Continue digoxin. Anticoagulation discontinued due to GI bleed. reports history of gastric ulcer. Elevated D-dimer could be related to COVID pneumonia. Nephrology is following for ANDREA. Patient started on Lasix drip by nephrology. Monitor renal function. Continue steroid for history of COVID pneumonia and COPD exacerbation. Pulmonary is following. Blood cultures: No growth to date. Sputum culture is pending. Continue antibiotics. Monitor CBC and electrolytes. Weaning trial per Dr. Pablo.
[2021-04-29 16:10] LABS: Blood Gas Oxyhemoglobin 89.9 % (94-97); Blood O2 Saturation 92.6 % (92-98.5)
--- NOTE | 2021-04-29 17:06 | P.PN ---
Subjective Date of Service: 04/29/21 Chief Complaint: Respiratory failure Patient's condition is stable is doing much better on continuous CPAP mode no further evidence of GI bleeding patient is responsive Review of Systems is unable to be obtained Physical Examination - Vital Signs Temperature: 97.8 F Blood Pressure: 110/44 Pulse: 95 Respirations: 22 Pulse Ox (%): 98 - Physical Exam General: Other (Responsive) Respiratory: Clear to auscultation bilaterally, Friction rub Cardiovascular: Normal S1 S2 Assessment & Plan - Problems (Diagnosis) (1) Respiratory failure Current Visit: Yes Status: Acute Plan: Patient doing much better no further evidence of GI bleeding Labarge has been negative patient was weaned and extubated from the ventilator continue with tube feeds White count is normal hemoglobin stable chest x-ray consistent with Covid pneumonia Qualifiers: Chronicity: acute
[2021-04-29 23:53] LABS: Urine Appearance CLEAR (Clear); Urine Bilirubin NEGATIVE (Negative); Urine Blood NEGATIVE (Negative); Urine Color YELLOW (Yellow); Urine Glucose NEGATIVE (Negative); Urine Protein NEGATIVE (Negative); Urine Urobilinogen 0.2 mg/dL (0.2-1.0)
[2021-04-29 23:56] LABS: Urine Microscopic Reflex NO UMIC
[2021-04-30] MEDS: FENTANYL CITR 100 MCG/2 ML IV PRN ×4 (04:23→20:45)
[2021-04-30 05:39] LABS: Absolute Lymphocytes (CBC) 0.5 K/uL (0.7-4.9); Basophils % 0.2 % (0-1.3); Hematocrit 30.6 % (36.0-45.0); Lymphocytes % 5.3 % (15.3-44.8); MPV 8.8 fL (7.6-11.3); RBC Red Blood Cell Count 3.64 M/uL (3.86-4.86)
[2021-04-30 06:27] LABS: Albumin 2.9 g/dL (3.4-5.0); Bilirubin Total 0.8 mg/dL (0.2-1.0); C-Reactive Protein 21.5 mg/L (<3.00); Magnesium 2.9 mg/dL (1.8-2.4); Phosphorus 5.8 mg/dL (2.5-4.9); Potassium 4.1 mmol/L (3.5-5.1); Protein, Total 6.4 g/dL (6.4-8.2)
[2021-04-30] MEDS: FUROSEMIDE 100 MG in NA CHLORIDE 0.9% 90 ML IV SCH (07:00)
[2021-04-30 07:41] LABS: Ferritin 56.5 ng/mL (8-388)
[2021-04-30] MEDS: AMIODARONE HCL 900 MG in Dextrose 5%-Water 482 ML IV SCH (08:21)
[2021-04-30] MEDS: METHYLPREDNISOLONE 40 MG INJ IV SCH ×2 (08:57→20:46)
[2021-04-30] MEDS: VITAMIN D 1000 UNIT TAB PO SCH (08:57)
[2021-04-30] MEDS: FAMOTIDINE 20 MG/2 ML VIAL IV SCH ×2 (08:58→20:46)
[2021-04-30] MEDS: DIGOXIN 0.25 MG TABLET PO SCH (08:58)
[2021-04-30] MEDS: THIAMINE HCL 100 MG TABLET PO SCH (08:58)
[2021-04-30] MEDS: CEFTRIAXONE 1 GM/NS 50 ML 1 GM/50 ML BAG IV SCH (09:11)
--- NOTE | 2021-04-30 10:41 | P.PN ---
Subjective Date of Service: 04/30/21 Chief Complaint: Respiratory failure Patient is currently on a Ventimask unresponsive was extubated yesterday stable Review of Systems is unable to be obtained Physical Examination - Vital Signs Temperature: 97.8 F Blood Pressure: 110/44 Pulse: 95 Respirations: 22 Pulse Ox (%): 98 - Physical Exam General: Unresponsive Respiratory: Clear to auscultation bilaterally Cardiovascular: No edema, Regular rate/rhythm Assessment & Plan - Problems (Diagnosis) (1) Respiratory failure Current Visit: Yes Status: Acute Plan: Patient's condition is stable and is on a Ventimask unresponsive we'll continue to wean tube feeds White count is normal renal function is slightly better meds reviewed DC antibiotic cultures negative Qualifiers: Chronicity: acute
[2021-04-30] MEDS ORDERED: METOPROLOL XL 25 MG TAB PO SCH (12:24)
--- NOTE | 2021-04-30 12:27 | P.PN ---
Subjective Date of Service: 04/30/21 Chief Complaint: Respiratory failure Patient extubated yesterday. She is tolerating Ventimask. NG-tube output-not coffee-ground. Anasarca has improved. Serum creatinine trending down. Physical Examination - Vital Signs Temperature: 97.8 F Blood Pressure: 124/53 Pulse: 82 Respirations: 20 Pulse Ox (%): 90 - Physical Exam General: In no apparent distress, Confused HEENT: Other (Ventimask) Respiratory: Crackles/rales (Bilateral) Cardiovascular: Edema (Lower extremities and upper extremities edema improved), Irregular heart rate/rhythm Gastrointestinal: Soft and benign, Non-distended Integumentary: No erythema, No cyanosis Neurological: Other (Moves all extremities.) Assessment And Plan - Plan Physical Examination: General: Sedated ENT: Intubated. NG tube with coffee-ground aspirate. Neck: No elevated JVD Lungs: On mechanical ventilation. Heart: Heart sounds 1 and 2 normal, irregular rhythm. No murmur. Abdomen: Soft, nondistended. Extremities: Lower extremity edema improved, no digital cyanosis. Neurology: Sedated. Skin: Warm and dry. No rashes or ulcers. Assessment: Atrial fibrillation with RVR Elevated D-dimer. Acute respiratory failure with hypoxia Acute diastolic heart failure History of COVID pneumonia. Acute renal failure. Chronic anemia Hypothyroidism COPD exacerbation Plan Start oral metoprolol and stop amiodarone drip. Continue digoxin. Echocardiogram: Normal EF, moderate pulmonary hypertension. Magnesium and phosphorus levels elevated. Continue supportive measures. Anticoagulation discontinued due to GI bleed. reports history of gastric ulcer. Elevated D-dimer could be related to COVID pneumonia. Nephrology is following for ANDREA. Patient extubated to Ventimask. Lasix drip discontinued. Monitor renal function. Continue steroid for history of COVID pneumonia and COPD exacerbation. Pulmonary is following. Blood cultures: No growth to date. Sputum culture: Normal respiratory alicia. Off antibiotics. Monitor CBC and electrolytes.
--- NOTE | 2021-04-30 14:10 | RAD REPORT ---
EXAM DESCRIPTION: RAD - Abdomen 1 View (KUB) - 04/30/2021 1:05 pm CLINICAL HISTORY: naso gastric tube placement COMPARISON: No comparisons FINDINGS: NG tube tip overlies the proximal stomach in satisfactory position. Airspace disease and l eft subclavian central line again noted. Fusion hardware in the lower spine. IMPRESSION: The NG tube tip overlies the stomach in satisfactory position.
--- NOTE | 2021-05-01 00:29 | PN ---
Date of Progress Note: 04/30/2021 Chief Complaint: Respiratory failure. History Of Present Illness: Patient required intubation. Patient was extubated. She remains in ICU . She is consulted for acute kidney injury. Patient developed acute kidney injury secondary to isch emic ATN. Review of Systems: Unobtainable. Physical Examination: Lungs: Few rhonchi. Heart: S1, S2. Abdomen: Soft, benign. Extremities: No edema. Impression And Plan: 1.Acute kidney injury secondary to acute tubular necrosis, renal hypoperfusion in setting of atrial fibrillation with rapid ventricular response. Patient has nonoliguric urine output. Renal function is stabilizing. Heart rate is controlled with amiodarone drip. The patient will continue Ambriz cath eter. Monitor strict I's and O's. Monitor renal panel. 2.Hypotension, resolved. 3.Atrial fibrillation rate is controlled with amiodarone. 4.Hyperphosphatemia, monitor. Plan, treatment according to phosphorus level. 5.Acute respiratory failure secondary to COVID pneumonia and rapid atrial fibrillation, heart rate is controlled. 6.Pneumonia per primary team and Pulmonary team. EB/MODL Voice ID: [id number] Report ID: [id number]
[2021-05-01] MEDS: AMIODARONE HCL 900 MG in Dextrose 5%-Water 482 ML IV SCH (00:31)
[2021-05-01] MEDS: FENTANYL CITR 100 MCG/2 ML IV PRN ×2 (03:32→22:15)
[2021-05-01] MEDS: METOPROLOL TAR 25 MG TAB FT SCH ×2 (05:37→17:26)
[2021-05-01] MEDS: LEVOTHYROXINE SOD 0.025 MG TAB PO SCH (05:37)
[2021-05-01 05:41] LABS: Absolute Lymphocytes (CBC) 0.5 K/uL (0.7-4.9); Basophils % 0.3 % (0-1.3); Hematocrit 31.7 % (36.0-45.0); Lymphocytes % 4.9 % (15.3-44.8); MPV 8.8 fL (7.6-11.3); RBC Red Blood Cell Count 3.77 M/uL (3.86-4.86)
[2021-05-01 07:53] LABS: Potassium 4.4 mmol/L (3.5-5.1)
[2021-05-01 07:54] LABS: Albumin 2.9 g/dL (3.4-5.0); Bilirubin Total 0.7 mg/dL (0.2-1.0); C-Reactive Protein 11.2 mg/L (<3.00); Protein, Total 6.3 g/dL (6.4-8.2)
[2021-05-01] MEDS: THIAMINE HCL 100 MG TABLET PO SCH (08:58)
[2021-05-01] MEDS: VITAMIN D 1000 UNIT TAB PO SCH (08:59)
[2021-05-01] MEDS: FAMOTIDINE 20 MG/2 ML VIAL IV SCH ×2 (08:59→20:24)
[2021-05-01] MEDS: METHYLPREDNISOLONE 40 MG INJ IV SCH ×2 (08:59→20:24)
[2021-05-01] MEDS: DIGOXIN 0.25 MG TABLET PO SCH (08:59)
[2021-05-01] MEDS ORDERED: HYDROMORPHONE HCL 1 MG/ML INJ IV ONE (09:38)
--- NOTE | 2021-05-01 10:59 | P.PN ---
Subjective Date of Service: 05/01/21 Chief Complaint: Respiratory failure Patient is tolerating 10 L oxygen by nasal cannula She is more responsive than yesterday. Anasarca has improved. Serum creatinine is trending down. Physical Examination - Vital Signs Temperature: 97.2 F Blood Pressure: 117/59 Pulse: 82 Respirations: 24 Pulse Ox (%): 100 - Studies Microbiology Data (last 24 hrs): 04/25/21 16:45 Blood - Blood Aerobic Blood Culture - Final No growth in 5 days. 04/25/21 16:45 Blood - Blood Anaerobic Blood Culture - Final No growth in 5 days. 04/25/21 16:30 Blood - Blood Aerobic Blood Culture - Final No growth in 5 days. 04/25/21 16:30 Blood - Blood Anaerobic Blood Culture - Final Assessment And Plan - Plan Physical Examination: General: Somnolent, Neck: No elevated JVD Lungs: Nonlabored breathing. Bibasilar crackles. Heart: Heart sounds 1 and 2 normal, irregular rhythm. No murmur. Abdomen: Soft, nondistended. Extremities: Lower extremity edema improved, no digital cyanosis. Neurology: Somnolent. Moves all extremities. Skin: Warm and dry. No rashes or ulcers. Assessment: Atrial fibrillation with RVR Elevated D-dimer. Acute respiratory failure with hypoxia Acute diastolic heart failure History of COVID pneumonia. Acute renal failure. Chronic anemia Hypothyroidism COPD exacerbation Plan Continue oral metoprolol. Continue digoxin. Check digoxin level. Amiodarone drip discontinued Echocardiogram: Normal EF, moderate pulmonary hypertension. Magnesium and phosphorus levels elevated. Continue supportive measures. Anticoagulation discontinued due to GI bleed. reports history of gastric ulcer. Elevated D-dimer could be related to COVID pneumonia. Nephrology is following for ANDREA. Serum creatinine is trending down. Lasix drip discontinued. Patient tolerating oxygen by nasal cannula. Continue steroid for history of COVID pneumonia and COPD exacerbation. Pulmonary is following. Blood cultures: No growth to date. Sputum culture: Normal respiratory alicia. Off antibiotics. Monitor CBC and electrolytes.
--- NOTE | 2021-05-01 12:42 | RAD REPORT ---
EXAM DESCRIPTION: CT - Head Brain Wo Cont - 05/01/2021 11:50 am CLINICAL HISTORY: AMS Headache, drowsiness COMPARISON: No comparisons TECHNIQUE: All CT scans are performed using dose optimization technique as appropriate and may inclu de automated exposure control or mA/KV adjustment according to patient size. FINDINGS: No intracranial hemorrhage, hydrocephalus or extra-axial fluid collection.Mild brain atrop hy.No areas of brain edema or evidence of midline shift. A nasogastric tube is present. The paranasal sinuses and mastoids are clear. The calvarium is intact. IMPRESSION: No acute intracranial abnormality.
[2021-05-01 13:31] LABS: White Blood Cell Scan OK (OK)
[2021-05-01 13:32] LABS: Anisocytosis 1+; Blood Morphology Comment NOTED (NOT SEEN); Platelet Estimate ADEQ; Poikilocytosis 1+
[2021-05-01] MEDS: FUROSEMIDE 40 MG/4 ML VIAL IV SCH (17:26)
[2021-05-01 20:34] LABS: Ferritin 53.6 ng/mL (8-388)
[2021-05-02 05:38] LABS: C-Reactive Protein 7.09 mg/L (<3.00); Ferritin 55.2 ng/mL (8-388)
[2021-05-02] MEDS: METOPROLOL TAR 25 MG TAB FT SCH ×2 (05:41→17:47)
[2021-05-02] MEDS: LEVOTHYROXINE SOD 0.025 MG TAB PO SCH (05:41)
[2021-05-02] MEDS: FAMOTIDINE 20 MG/2 ML VIAL IV SCH ×2 (08:00→21:00)
[2021-05-02] MEDS: METHYLPREDNISOLONE 40 MG INJ IV SCH ×2 (08:00→21:00)
[2021-05-02] MEDS: FUROSEMIDE 40 MG/4 ML VIAL IV SCH ×2 (08:00→17:46)
[2021-05-02] MEDS: THIAMINE HCL 100 MG TABLET PO SCH (08:01)
[2021-05-02] MEDS: VITAMIN D 1000 UNIT TAB PO SCH (08:01)
--- NOTE | 2021-05-02 12:40 | P.PN ---
Subjective Date of Service: 05/02/21 Chief Complaint: Respiratory failure Patient's condition is better she has more alert responsive nasogastric tube removed Review of Systems is unable to be obtained Physical Examination - Vital Signs Temperature: 96.8 F Blood Pressure: 144/78 Pulse: 77 Respirations: 18 Pulse Ox (%): 97 - Physical Exam General: Alert, Cooperative Respiratory: Clear to auscultation bilaterally, Diminished Cardiovascular: No edema, Regular rate/rhythm Assessment & Plan - Problems (Diagnosis) (1) Respiratory failure Current Visit: Yes Status: Acute Plan: Respiratory failure has resolved she is currently on nasal cannula oxygen more responsive alert and renal function is improving. His dose of Solu-Medrol repeat chest x-ray in the morning Qualifiers: Chronicity: acute
--- NOTE | 2021-05-02 14:34 | P.PN ---
Subjective Date of Service: 05/02/21 Chief Complaint: Respiratory failure Patient is more interactive today. Oxygen requirement has decreased to 3 L by nasal cannula She was complaining of constipation. She had a bowel movement after Dulcolax supp administration Anasarca has improved. Physical Examination - Vital Signs Temperature: 96.8 F Blood Pressure: 144/78 Pulse: 77 Respirations: 18 Pulse Ox (%): 97 Assessment And Plan - Plan Physical Examination: General: More awake today. Drowsy but easily arousable. Neck: No elevated JVD Lungs: Nonlabored breathing. Bibasilar crackles. Heart: Heart sounds 1 and 2 normal, irregular rhythm. No murmur. Abdomen: Soft, nondistended. Extremities: Lower extremity edema improved, no digital cyanosis. Neurology: Moves all extremities. Skin: Warm and dry. No rashes or ulcers. Assessment: Atrial fibrillation with RVR Elevated D-dimer. Acute respiratory failure with hypoxia Acute diastolic heart failure History of COVID pneumonia. Acute renal failure. Chronic anemia Hypothyroidism COPD exacerbation Plan Continue oral metoprolol. Digoxin level elevated. Digoxin on hold. Heart rate controlled. Amiodarone drip discontinued Echocardiogram: Normal EF, moderate pulmonary hypertension. Anticoagulation discontinued due to GI bleed. reports history of gastric ulcer. Elevated D-dimer could be related to COVID pneumonia. Nephrology is following for ANDREA. Serum creatinine is trending down. Lasix drip discontinued. Patient tolerating oxygen by nasal cannula. Continue steroid for history of COVID pneumonia and COPD exacerbation. Pulmonary is following. Blood cultures: No growth to date. Sputum culture: Normal respiratory alicia. Off antibiotics. NG-tube removed. Speech therapy input appreciated. Patient started on thin liquids and mechanical soft diet. Monitor CBC and electrolytes. Stable for transfer out of the ICU
[2021-05-03 05:52] LABS: Absolute Lymphocytes (CBC) 1.9 K/uL (0.7-4.9); Basophils % 0.4 % (0-1.3); Hematocrit 33.8 % (36.0-45.0); Lymphocytes % 12.9 % (15.3-44.8); MPV 8.5 fL (7.6-11.3); RBC Red Blood Cell Count 4.03 M/uL (3.86-4.86)
[2021-05-03 06:24] LABS: Albumin 2.8 g/dL (3.4-5.0); Bilirubin Total 0.9 mg/dL (0.2-1.0)
[2021-05-03 06:31] LABS: Magnesium 2.7 mg/dL (1.8-2.4); Potassium 4.6 mmol/L (3.5-5.1)
[2021-05-03 06:43] LABS: Anisocytosis 2+; Blood Morphology Comment NOTED (NOT SEEN); Platelet Estimate ADEQ; White Blood Cell Scan OK (OK)
[2021-05-03 06:44] LABS: Macrocytosis 1+
[2021-05-03] MEDS: METOPROLOL TAR 25 MG TAB FT SCH ×2 (07:51→17:57)
--- NOTE | 2021-05-03 07:55 | RAD REPORT ---
EXAM DESCRIPTION: Felicia Single View05/03/2021 5:58 am CLINICAL HISTORY: Respiratory failure COMPARISON: April 29, 2021 FINDINGS: The right lung opacities have partially resolved. Mild improvement in the left basilar opacities. Small left pleural effusion. Heart remains enlarged IMPRESSION: Partial resolution in the right lung opacities. Mild improvement in the left basilar opacities
[2021-05-03] MEDS: METHYLPREDNISOLONE 40 MG INJ IV SCH (09:00)
[2021-05-03] MEDS: FAMOTIDINE 20 MG/2 ML VIAL IV SCH (09:00)
[2021-05-03] MEDS: FUROSEMIDE 40 MG/4 ML VIAL IV SCH (09:00)
[2021-05-03] MEDS: THIAMINE HCL 100 MG TABLET PO SCH (10:17)
[2021-05-03] MEDS: VITAMIN D 1000 UNIT TAB PO SCH (10:17)
[2021-05-03] MEDS: LEVOTHYROXINE SOD 0.025 MG TAB PO SCH (10:17)
[2021-05-03] MEDS ORDERED: LORAZEPAM 0.5 MG TABLET PO PRN (10:39)
[2021-05-03] MEDS: predniSONE 20 MG TAB PO SCH ×2 (11:50→20:25)
--- NOTE | 2021-05-03 12:31 | P.PN ---
Date of Service: 05/03/21 Subjective: Patient with confusion last night pulled out her central line Nursing reports intermittent confusion, alert/oriented to this morning Reports feeling feels her breathing is improving, feels very weak ROS: 10 point ROS as noted above, otherwise negative Physical exam GEN: AOx3, follows basic commands HEENT: Normal conjunctiva, sclera anicteric CV: Irregularly irregular rhythm, no edema Pulm: Nonlabored respiration on 4L NC ABD: Soft, nontender, nondistended Integumentary: No rashes Neuro: Moves all extremities, generalized weakness Problem List Atrial fibrillation with RVR Elevated D-dimer Acute respiratory failure with hypoxia Acute diastolic heart failure History of COVID pneumonia. Acute renal failure. Chronic anemia Hypothyroidism COPD exacerbation Continue oral metoprolol. Digoxin level elevated. Digoxin dc'd. Heart rate controlled. Amiodarone drip discontinued Echocardiogram: Normal EF, moderate pulmonary hypertension. Anticoagulation discontinued due to GI bleed. reports history of gastric ulcer. Elevated D-dimer could be related to COVID pneumonia. Nephrology is following for ANDREA. Serum creatinine is improving. Lasix drip discontinued. Patient tolerating oxygen by nasal cannula. Improving Continue steroid for history of COVID pneumonia and COPD exacerbation. Pulmonary is following. Blood cultures: No growth to date. Sputum culture: Normal respiratory alicia. Off antibiotics. NG-tube removed. Speech therapy input appreciated. Patient started on thin liquids and mechanical soft diet. - tolerating well changed IV meds to PO due to no IV access - pulled central line, and difficult to obtain PIV Code: full Dispo: ok to downgrade from ICU PT consulted, will likely need SNF Time Spent Managing Pts Care (In Minutes): 35
[2021-05-03 13:04] LABS: HIV AG/AB 4TH GEN Non-reactive (Non-reactive)
[2021-05-03 14:38] LABS: Hepatitis C Virus RNA (PCR)log <1.18 log IU/mL
[2021-05-03] MEDS ORDERED: D5 0.9 NS 1,000 ML IV SCH (15:00)
[2021-05-03] MEDS: FUROSEMIDE 40 MG TABLET PO SCH (17:57)
--- NOTE | 2021-05-03 19:10 | PN ---
Date of Progress Note: 05/02/2021 Chief Complaint: Acute kidney injury, respiratory failure. History Of Present Illness: Patient remains in ICU for chronic pneumonia and severe hypoxemic respir atory failure. Patient developed acute kidney injury secondary to ischemic ATN. Review of Systems: Unobtainable. Physical Examination: Lungs: Few rhonchi. Heart: S1, S2. Abdomen: Soft, benign. Extremities: No edema. Impression And Plan: 1.Acute kidney injury secondary to acute tubular necrosis due to renal hypoperfusion in the setting of atrial fibrillation with a rapid ventricular response. Patient has nonoliguric urine output. Marcos al function has stabilized over the last 48 hours. Patient will continue current management, and she does not require dialysis. Renal function has tendency to improve, and acute renal function is grad ually resolving. 2.Hypotension, resolved. 3.Atrial fibrillation is controlled with amiodarone. 4.Hyperphosphatemia, monitor and re-evaluate phosphorus level. Continue to monitor calcium and magn esium level at least. 5.Acute respiratory failure secondary to COVID pneumonia and rapid atrial fibrillation. Heart rate is controlled. Management for pneumonia per primary team. KOURTNEY/MARK Voice ID: [id number] Report ID: [id number]
--- NOTE | 2021-05-03 19:16 | PN ---
Date of Progress Note: 05/03/2021 History Of Present Illness: The patient was admitted with CHF exacerbation, atrial fibrillation with RVR, acute kidney injury secondary to cardiorenal. The patient was started on Lasix drip. Unfortunately patient lost her line. Patient for the last 24 hour was switched to oral Lasix. Patient maintaining good urine output. Kidney function continue to improve. Physical Examination: Vital Signs: When I saw the patient blood pressure 126/45, pulse of 84, afebrile. The patient had good urine output of 2.650, negative of 1 L. Chest: Crackles bilateral base. Heart: S1, S2, irregular. Abdomen: Soft, nontender. Extremity: No edema. Neuro: Alert. No focality. Laboratory Data: WBC 15, H and H 10.7/33.8. Sodium 147, potassium 4.6, bicarb 39, BUN 90, creatinine down to 1.7, GFR of 29, calcium 9.2, phosphor 5.8, magnesium 2.7, albumin 2.8. Corrected calcium is 10. Current Medications: The patient on include: 1. Lasix 40 b.i.d. 2. Metoprolol. 3. Lorazepam. 4. Levothyroxine. 5. Prednisone 20 b.i.d. 6. Tylenol 7. Thiamine. 8. Cholecalciferol. Assessment And Plan: 1. Acute kidney injury secondary to cardiorenal. Continue to recover the disproportion in the BUN, creatinine, mostly secondary to steroid and to the prerenal status secondary to the cardiorenal. Patient not uremic. We going to watch the patient closely. 2. Marginal hypernatremia. The patient start being close to normal volume. I am going to start the patient on D5 for only 1 L and we will follow up the patient. 3. Atrial fibrillation with RVR with congestive heart failure exacerbation as by Cardiology. DONTE/MARK Voice ID: [id number] Report ID: [id number] JOSE
--- NOTE | 2021-05-04 05:55 | P.PN ---
Date of Service: 05/04/21 Subjective: no acute events. overall doing better feels breathing is better, energy/strength is returning but still feels very weak no appetite / doesn't like hospital food, is trying to at least force herself to drink ensure no new complaints ROS: 10 point ROS as noted above, otherwise negative Physical exam GEN: AOx3, NAD HEENT: Normal conjunctiva, sclera anicteric CV: Irregularly irregular rhythm, no edema Pulm: Nonlabored respiration on 2L NC ABD: Soft, nontender, nondistended Integumentary: No rashes Neuro: Moves all extremities, generalized weakness Problem List Atrial fibrillation with RVR Elevated D-dimer Acute respiratory failure with hypoxia secondary to diastolic CHF and COVID pneumonia Acute diastolic heart failure History of COVID pneumonia. Acute renal failure. Chronic anemia Hypothyroidism COPD exacerbation Continue oral metoprolol. Digoxin level elevated. Digoxin dc'd several days ago. Heart rate controlled. Amiodarone drip discontinued Echocardiogram: Normal EF, moderate pulmonary hypertension. Anticoagulation discontinued due to GI bleed. reports history of gastric ulcer. Elevated D-dimer could be related to COVID pneumonia. Nephrology is following for ANDREA. Serum creatinine is improving. Lasix drip discontinued. Patient tolerating oxygen by nasal cannula. Improving Continue steroid for history of COVID pneumonia and COPD exacerbation. Pulmonary is following. Blood cultures: No growth to date. Sputum culture: Normal respiratory alicia. Off antibiotics. NG-tube removed. Speech therapy input appreciated. Patient started on thin liquids and mechanical soft diet. - tolerating well changed IV meds to PO due to no IV access - pulled central line, and difficult to obtain PIV Code: full Dispo: downgraded last night from ICU, however unable to obtain IV access. unable to obtain routine lab work due to poor access will attempt midline or PICC pending availability PT consulted, will likely need SNF Time Spent Managing Pts Care (In Minutes): 35
[2021-05-04] MEDS: METOPROLOL TAR 25 MG TAB FT SCH ×2 (07:17→18:35)
[2021-05-04] MEDS: LEVOTHYROXINE SOD 0.025 MG TAB PO SCH (07:17)
[2021-05-04] MEDS: VITAMIN D 1000 UNIT TAB PO SCH (07:51)
[2021-05-04] MEDS: THIAMINE HCL 100 MG TABLET PO SCH (07:51)
[2021-05-04] MEDS: FUROSEMIDE 40 MG TABLET PO SCH (07:51)
[2021-05-04] MEDS: ENSURE ENLIVE 237 ML CAN PO SCH ×2 (07:56→20:46)
[2021-05-04] MEDS: predniSONE 20 MG TAB PO SCH ×2 (07:56→20:45)
--- NOTE | 2021-05-04 12:59 | PN ---
Date of Progress Note: 05/04/2021 Subjective: The patient was admitted with acute kidney injury secondary to cardiorenal, over volume. The patient was started on Lasix drip, switched to oral 48 hours. The patient still has good urine output. Kidney function has been continued to improve. Physical Examination: Vital Signs: When I saw the patient; blood pressure 115/48, pulse of 74, afebrile. The patient had good urine output of 5100, negative of 1200. Chest: Clear to auscultation. Heart: S1, S2. Systolic murmur. Abdomen: Soft, nontender. Extremity: Trace edema. Neurological: Alert, oriented x3. No focal. Laboratory Data: WBC 15, H and H 10.7/33.8. Sodium 147, potassium 4.6, bicarb 39, BUN 90, creatinin e 1.7, that is lab yesterday. Calcium 9.2, magnesium 2.7, albumin 2.8. Corrected calcium is 10. Ch est x-ray yesterday; cardiomegaly with congestion, but much better than before. Current Medications: The patient on include; 1.Metoprolol. 2.Tylenol. 3.Lasix 40 b.i.d. 4.Ipratropium. 5.Levothyroxine. 6.Prednisone. 7.Cholecalciferol. 8.Thiamin. Assessment And Plan: 1.Acute kidney injury secondary to cardiorenal, continued to improve. The patient currently with ve ry good urine output. I am going to go ahead and decrease Lasix to once a day. We will follow up e lab today and we will monitor. 2.Hypernatremia. We will continue to monitor the patient closely. We will start D5 and we will con tinue Lasix to establish more sodium diuresis. 3.Atrial fibrillation with rapid ventricular response, rate controlled. We will follow up with Card iology. 4.Respiratory failure secondary to congestive heart failure, recovered. 5.COVID pneumonia as by primary. DONTE/MARK Voice ID: [id number] Report ID: [id number]
[2021-05-05] MEDS ORDERED: ONDANSETRON 4 MG/2 ML VIAL IV PRN (00:13)
[2021-05-05 00:46] LABS: Absolute Lymphocytes (CBC) 1.1 K/uL (0.7-4.9); Basophils % 0.1 % (0-1.3); Hematocrit 34.7 % (36.0-45.0); Lymphocytes % 7.7 % (15.3-44.8); MPV 8.8 fL (7.6-11.3); RBC Red Blood Cell Count 4.13 M/uL (3.86-4.86)
[2021-05-05 00:58] LABS: BUN Blood Urea Nitrogen 69 mg/dL (7-18); Bicarbonate 39 mmol/L (21-32); Glucose Level 100 mg/dL (74-106); Potassium 4.7 mmol/L (3.5-5.1); Sodium Level 142 mmol/L (136-145)
[2021-05-05 01:02] LABS: C-Reactive Protein < 2.90 mg/L (<3.00)
[2021-05-05] MEDS: LORAZEPAM 0.5 MG TABLET PO PRN ×2 (02:20→23:56)
[2021-05-05] MEDS ORDERED: MORPHINE 2 MG/ML SYR IV ONE (03:19)
[2021-05-05] MEDS: LEVOTHYROXINE SOD 0.025 MG TAB PO SCH (05:22)
[2021-05-05] MEDS: METOPROLOL TAR 25 MG TAB FT SCH ×2 (05:22→17:56)
[2021-05-05] MEDS: ENSURE ENLIVE 237 ML CAN PO SCH ×2 (09:00→20:04)
[2021-05-05] MEDS: predniSONE 20 MG TAB PO SCH ×2 (09:13→20:02)
[2021-05-05] MEDS: FUROSEMIDE 40 MG TABLET PO SCH (09:14)
[2021-05-05] MEDS: ASPIRIN EC 81 MG TAB PO SCH (09:16)
[2021-05-05] MEDS: VITAMIN D 1000 UNIT TAB PO SCH (09:16)
[2021-05-05] MEDS: THIAMINE HCL 100 MG TABLET PO SCH (09:17)
[2021-05-05] MEDS: CLOPIDOGREL 75 MG TABLET PO SCH (09:17)
[2021-05-05] MEDS: FERROUS SULFATE 325 MG TAB PO SCH ×2 (09:17→20:02)
--- NOTE | 2021-05-05 12:30 | PN ---
Date of Progress Note: 05/05/2021 Subjective: The patient was admitted with acute kidney injury secondary to cardiorenal. The patient responded very well on diuresis. Kidney function has been improved. The patient back to close to b aseline. The patient developed hypernatremia, response on hydration. Physical Examination: Vital Signs: Blood pressure 98/62, pulse of 80, afebrile. The patient had good urine output of 4200 even balance. Chest: Clear to auscultation. Heart: S1, S2. Irregular. Abdomen: Soft, nontender. Extremities: No edema. Laboratory Data: WBC 14.8, H and H 10.7/34.7, platelets 327. Sodium 142, potassium 4.7, bicarb 39, BUN 69, creatinine down to 1.4, GFR of 34, calcium 9.4. TSH 0.2. PTH 545. Current Medications: The patient on include; 1.Aspirin. 2.Plavix. 3.Atorvastatin. 4.Metoprolol 25. 5.Lasix 40 mg daily. 6.Zofran. 7.Levothyroxine. 8.Prednisone. 9.Cholecalciferol. 10.Thiamin. Assessment And Plan: 1.Acute kidney injury on chronic kidney disease, back close to baseline, looked to me started to be euvolemic. I am going to continue on the current dose of Lasix and we will monitor the patient close ly. 2.Hypernatremia, on the recovery phase. The patient has normal volume. Continue Lasix 40 mg. We w ill continue to follow up. 3.Atrial fibrillation with rapid ventricular response. Rate has been controlled currently. Follow up with Cardiology. 4.Respiratory failure with congestive heart failure, currently normal volume, responds to current La six dose. We will continue current treatment. 5.COVID pneumonia as by primary. 6.Deconditioning. Continue PT/OT. MA/MODL Voice ID: [id number] Report ID: [id number]
--- NOTE | 2021-05-05 12:47 | P.PN ---
Date of Service: 05/05/21 Subjective: no acute events. overall doing better continues to feel better each day no new complaints continues with generalized weakness, difficulty getting up ROS: 10 point ROS as noted above, otherwise negative Physical exam GEN: AOx3, NAD HEENT: Normal conjunctiva, sclera anicteric CV: Irregularly irregular rhythm, no edema Pulm: Nonlabored respiration on 2L NC ABD: Soft, nontender, nondistended Integumentary: No rashes Neuro: Moves all extremities, generalized weakness Problem List Atrial fibrillation with RVR Elevated D-dimer Acute respiratory failure with hypoxia secondary to diastolic CHF and COVID pneumonia Acute diastolic heart failure History of COVID pneumonia. Acute renal failure. Chronic anemia Hypothyroidism COPD exacerbation Continue oral metoprolol. afib has been rate controlled on metoprolol. Digoxin level elevated. Digoxin dc'd several days ago. Heart rate controlled. Amiodarone drip discontinued Echocardiogram: Normal EF, moderate pulmonary hypertension. Anticoagulation discontinued due to GI bleed. reports history of gastric ulcer. Elevated D-dimer could be related to COVID pneumonia. Nephrology is following for ANDREA. Serum creatinine is improving. Lasix drip discontinued. Patient tolerating oxygen by nasal cannula. Improving Continue steroid for history of COVID pneumonia and COPD exacerbation. Pulmonary is following. Blood cultures: No growth to date. Sputum culture: Normal respiratory alicia. Off antibiotics. NG-tube removed. Speech therapy input appreciated. Patient started on thin liquids and mechanical soft diet. - tolerating well changed IV meds to PO due to no IV access - pulled central line, and difficult to obtain PIV a few days ago midline placed evening of 05/04, labs improving Code: full Dispo: telemetry, does not need ICU level of care working with PT, significant weakness, recommended SNF, patient to discuss with Time Spent Managing Pts Care (In Minutes): 35
[2021-05-05] MEDS: ATORVASTATIN 20 MG TAB PO SCH (20:02)
[2021-05-05 23:55] LABS: Vitamin D 1,25-Dihydroxy Total 42 pg/mL (18-72); Vitamin D,1,25-OH2, D2 <8 pg/mL
[2021-05-06] MEDS ORDERED: MELATONIN 5 MG TABLET PO PRN (01:33)
[2021-05-06] MEDS: LEVOTHYROXINE SOD 0.025 MG TAB PO SCH (05:10)
[2021-05-06] MEDS: METOPROLOL TAR 25 MG TAB FT SCH ×2 (05:11→17:54)
--- NOTE | 2021-05-06 05:51 | P.PN ---
Date of Service: 05/06/21 Subjective: Continues to improve daily, stable on 2 L nasal cannula Working with physical therapy Appetite improving No new complaints A. fib with rate control ROS: 10 point ROS as noted above, otherwise negative Physical exam GEN: AOx3, NAD HEENT: Normal conjunctiva, sclera anicteric CV: Irregularly irregular rhythm, no edema Pulm: Nonlabored respiration on 2L NC ABD: Soft, nontender, nondistended Integumentary: No rashes Neuro: Moves all extremities, generalized weakness Problem List Atrial fibrillation with RVR Elevated D-dimer Acute respiratory failure with hypoxia secondary to diastolic CHF and COVID pneumonia Acute diastolic heart failure History of COVID pneumonia. Acute renal failure. Chronic anemia Hypothyroidism COPD exacerbation afib has been rate controlled on metoprolol. Amiodarone drip discontinued several days ago Echocardiogram: Normal EF, moderate pulmonary hypertension. Anticoagulation discontinued due to GI bleed. reports history of gastric ulcer. Elevated D-dimer could be related to COVID pneumonia. Nephrology is following for ANDREA. Serum creatinine is improving. Lasix drip discontinued. Patient tolerating oxygen by nasal cannula. Improving Continue steroid for history of COVID pneumonia and COPD exacerbation. Pulmonary is following. Blood cultures: No growth to date. Sputum culture: Normal respiratory alicia. Off antibiotics. NG-tube removed. Speech therapy input appreciated. Patient started on thin liquids and mechanical soft diet. - tolerating well changed IV meds to PO due to no IV access - pulled central line, and difficult to obtain PIV a few days ago midline placed evening of 05/04, labs improving Continue home aspirin/Plavix Code: full Dispo: telemetry, does not need ICU level of care working with PT, significant weakness, agreeable to SNF, social service technician consulted Time Spent Managing Pts Care (In Minutes): 35
[2021-05-06 05:56] LABS: Absolute Lymphocytes (CBC) 1.2 K/uL (0.7-4.9); Basophils % 0.1 % (0-1.3); Hematocrit 32.5 % (36.0-45.0); Lymphocytes % 7.3 % (15.3-44.8); MPV 8.5 fL (7.6-11.3); RBC Red Blood Cell Count 3.85 M/uL (3.86-4.86)
[2021-05-06 06:09] LABS: ALT/SGPT 50 U/L (12-78); AST/SGOT 36 U/L (15-37); Albumin 2.6 g/dL (3.4-5.0); Alkaline Phosphatase 49 U/L (45-117); BUN Blood Urea Nitrogen 73 mg/dL (7-18); Bicarbonate 38 mmol/L (21-32); Bilirubin Total 0.5 mg/dL (0.2-1.0); Glucose Level 148 mg/dL (74-106); Magnesium 2.4 mg/dL (1.8-2.4); Potassium 4.9 mmol/L (3.5-5.1); Protein, Total 5.5 g/dL (6.4-8.2); Sodium Level 141 mmol/L (136-145)
[2021-05-06 06:13] LABS: C-Reactive Protein < 2.90 mg/L (<3.00)
[2021-05-06 07:19] LABS: Anisocytosis 2+; Blood Morphology Comment NOTED (NOT SEEN); Hypochromasia 2+; Platelet Estimate ADEQ; Polychromasia 1+; Target Cells 1+; White Blood Cell Scan OK (OK)
[2021-05-06 07:20] LABS: Ovalocytes SLIGHT
[2021-05-06] MEDS: LORAZEPAM 0.5 MG TABLET PO PRN (08:25)
[2021-05-06] MEDS: predniSONE 20 MG TAB PO SCH ×2 (08:25→21:54)
[2021-05-06] MEDS: THIAMINE HCL 100 MG TABLET PO SCH (08:26)
[2021-05-06] MEDS: FERROUS SULFATE 325 MG TAB PO SCH ×2 (08:27→21:53)
[2021-05-06] MEDS: FUROSEMIDE 40 MG TABLET PO SCH (08:28)
[2021-05-06] MEDS: CLOPIDOGREL 75 MG TABLET PO SCH (08:28)
[2021-05-06] MEDS: VITAMIN D 1000 UNIT TAB PO SCH (08:28)
[2021-05-06] MEDS: ASPIRIN EC 81 MG TAB PO SCH (08:28)
[2021-05-06] MEDS: ENSURE ENLIVE 237 ML CAN PO SCH ×2 (08:28→21:00)
--- NOTE | 2021-05-06 09:01 | P.PN ---
Subjective Date of Service: 05/06/21 Chief Complaint: Respiratory failure Subjective: Other (able to eat, drink.) Physical Examination - Vital Signs Temperature: 97.1 F Blood Pressure: 119/89 Pulse: 85 Respirations: 20 Pulse Ox (%): 89 - Physical Exam General: Other (appears as her stated age) HEENT: Atraumatic, Normocephalic Neck: Supple Respiratory: Other (Symmetric chest expansion) Cardiovascular: No rubs, No murmurs Gastrointestinal: Soft and benign Integumentary: Other (Normal temperature) Urinary: Other (no bladder distention) External genitalia: Deferred Rectal: Deferred Assessment And Plan - Plan # ANDREA 2/2 ischemic ATN/poor forward flow from rapid afib SCr improved to 1.4 HR controlled PO fluid intake as able Monitor renal panel # Afib Rate controlled On metoprolol Mngt per Cardio # Acute respiratory failure 2/2 covid pna + rapid afib HR now controlled Further mngt per Pulmo service # Deconditioning PT/OT # Dispo Dc plan to SNF ongoing
[2021-05-06 18:27] LABS: Arterial Blood Carboxyhemoglob 1.8 % (0-1.5); Blood Gas Oxyhemoglobin 94.2 % (94-97); Blood O2 Saturation 96.6 % (92-98.5)
[2021-05-06] MEDS: ATORVASTATIN 20 MG TAB PO SCH (21:53)
--- NOTE | 2021-05-07 05:02 | P.PN ---
Subjective Date of Service: 05/07/21 Chief Complaint: Respiratory failure Subjective: No new changes Physical Examination - Vital Signs Temperature: 97.3 F Blood Pressure: 105/47 Pulse: 83 Respirations: 21 Pulse Ox (%): 87 - Physical Exam General: Other (appears her stated age) HEENT: Atraumatic, Normocephalic Neck: Supple, JVD not distended Respiratory: Other (symmetric chest expansion) Cardiovascular: No rubs, No murmurs Gastrointestinal: Soft and benign Musculoskeletal: No clubbing Integumentary: Other (normal skin temperature) Neurological: Normal tone Urinary: Other (no bladder distention) External genitalia: Deferred Rectal: Deferred Assessment And Plan - Plan # ANDREA 2/2 ischemic ATN/poor forward flow from rapid afib SCr improved to 1.4 HR controlled PO fluid intake as able Monitor renal panel # Afib Rate controlled On metoprolol Mngt per Cardio # Acute respiratory failure 2/2 covid pna + rapid afib ABG on 05/06 showed respi acidosis + metabolic alk HR now controlled Further mngt per Pulmo service # Metabolic alkalosis Advised on adeq po hydration # Deconditioning PT/OT # Dispo Dc plan to SNF ongoing
--- NOTE | 2021-05-07 06:00 | P.PN ---
Date of Service: 05/07/21 Subjective: Stable, no acute events. Patient reports feeling better every day. Working with physical therapy Awaiting SNF ROS: 10 point ROS as noted above, otherwise negative Physical exam GEN: AOx3, NAD HEENT: Normal conjunctiva, sclera anicteric CV: Irregularly irregular rhythm, no edema Pulm: Nonlabored respiration on 2L NC ABD: Soft, nontender, nondistended Integumentary: No rashes Neuro: Moves all extremities, generalized weakness Problem List Atrial fibrillation with RVR Elevated D-dimer Acute respiratory failure with hypoxia secondary to diastolic CHF and COVID pneumonia Acute diastolic heart failure History of COVID pneumonia. Acute renal failure. Chronic anemia Hypothyroidism COPD exacerbation afib has been rate controlled on metoprolol. Amiodarone drip discontinued several days ago Echocardiogram: Normal EF, moderate pulmonary hypertension. Anticoagulation discontinued due to GI bleed. reports history of gastric ulcer. Elevated D-dimer could be related to COVID pneumonia. Nephrology is following for ANDREA. Serum creatinine is improving. Lasix drip discontinued several days ago Patient tolerating oxygen by nasal cannula. Improving Continue steroid for history of COVID pneumonia and COPD exacerbation. Pulmonary is following. Blood cultures: No growth to date. Sputum culture: Normal respiratory alicia. Off antibiotics. changed IV meds to PO due to no IV access - pulled central line, and difficult to obtain PIV a few days ago midline placed evening of 05/04, labs improving Continue home aspirin/Plavix Code: full Dispo: telemetry, does not need ICU level of care working with PT, significant weakness, agreeable to SNF, social service manager consulted Time Spent Managing Pts Care (In Minutes): 35
[2021-05-07] MEDS: LEVOTHYROXINE SOD 0.025 MG TAB PO SCH (06:13)
[2021-05-07] MEDS: METOPROLOL TAR 25 MG TAB FT SCH ×2 (06:13→18:00)
[2021-05-07 07:09] LABS: BUN Blood Urea Nitrogen 67 mg/dL (7-18); Bicarbonate 39 mmol/L (21-32); Glucose Level 93 mg/dL (74-106); Magnesium 2.2 mg/dL (1.8-2.4); Potassium 4.3 mmol/L (3.5-5.1); Sodium Level 142 mmol/L (136-145)
[2021-05-07 07:14] LABS: C-Reactive Protein < 2.90 mg/L (<3.00)
[2021-05-07] MEDS: VITAMIN D 1000 UNIT TAB PO SCH (08:43)
[2021-05-07] MEDS: predniSONE 20 MG TAB PO SCH ×2 (08:44→20:25)
[2021-05-07] MEDS: FUROSEMIDE 40 MG TABLET PO SCH (08:44)
[2021-05-07] MEDS: THIAMINE HCL 100 MG TABLET PO SCH (08:44)
[2021-05-07] MEDS: FERROUS SULFATE 325 MG TAB PO SCH ×2 (08:44→20:24)
[2021-05-07] MEDS: CLOPIDOGREL 75 MG TABLET PO SCH (08:44)
[2021-05-07] MEDS: ASPIRIN EC 81 MG TAB PO SCH (08:44)
[2021-05-07] MEDS: ENSURE ENLIVE 237 ML CAN PO SCH ×2 (09:00→21:00)
[2021-05-07 09:33] LABS: Absolute Lymphocytes (CBC) 2.3 K/uL (0.7-4.9); Basophils % 0.4 % (0-1.3); Hematocrit 33.6 % (36.0-45.0); Lymphocytes % 14.7 % (15.3-44.8); MPV 8.6 fL (7.6-11.3); RBC Red Blood Cell Count 3.95 M/uL (3.86-4.86)
[2021-05-07 09:51] LABS: Albumin 2.5 g/dL (3.4-5.0); Bilirubin Total 0.4 mg/dL (0.2-1.0); Magnesium 2.2 mg/dL (1.8-2.4); Phosphorus 3.4 mg/dL (2.5-4.9); Potassium 4.2 mmol/L (3.5-5.1); Protein, Total 5.5 g/dL (6.4-8.2)
[2021-05-07] MEDS ORDERED: POLYETHYL GLY 3350 17 GM/DOSE PO PRN (14:04)
[2021-05-07] MEDS: ATORVASTATIN 20 MG TAB PO SCH (20:24)
[2021-05-08] MEDS: METOPROLOL TAR 25 MG TAB FT SCH (05:46)
[2021-05-08] MEDS: LEVOTHYROXINE SOD 0.025 MG TAB PO SCH (05:47)
--- NOTE | 2021-05-08 05:59 | P.PN ---
Date of Service: 05/08/21 Subjective: Stable, no acute events. Patient reports feeling better every day. Working with physical therapy, walked a few feet yesterday No new complaints Fluctuates from room air to needing 2 L nasal cannula Awaiting SNF ROS: 10 point ROS as noted above, otherwise negative Physical exam GEN: AOx3, NAD HEENT: Normal conjunctiva, sclera anicteric CV: Irregularly irregular rhythm, no edema Pulm: Nonlabored respiration on RA ABD: Soft, nontender, nondistended Integumentary: No rashes Neuro: Moves all extremities, generalized weakness Problem List Atrial fibrillation with RVR Elevated D-dimer Acute respiratory failure with hypoxia secondary to diastolic CHF and COVID pneumonia Acute diastolic heart failure History of COVID pneumonia. Acute renal failure. Chronic anemia Hypothyroidism COPD exacerbation afib has been rate controlled on metoprolol. Amiodarone drip discontinued several days ago Echocardiogram: Normal EF, moderate pulmonary hypertension. Anticoagulation discontinued due to GI bleed. reports history of gastric ulcer. Elevated D-dimer could be related to COVID pneumonia. Nephrology is following for ANDREA. Serum creatinine is improving. Lasix drip discontinued several days ago Continue steroid for history of COVID pneumonia and COPD exacerbation. Pulmonary is following. Blood cultures: No growth to date. Sputum culture: Normal respiratory alicia. Off antibiotics. changed IV meds to PO due to no IV access - pulled central line, and difficult to obtain PIV a few days ago midline placed evening of 05/04, labs improving Continue home aspirin/Plavix Code: full Dispo: telemetry, does not need ICU level of care working with PT, significant weakness, agreeable to SNF, social media project manager consulted Time Spent Managing Pts Care (In Minutes): 35
--- NOTE | 2021-05-08 07:33 | P.PN ---
Subjective Date of Service: 05/08/21 Chief Complaint: Respiratory failure Subjective: Other (Reports having minimal SOB. No urinary complaints.) Physical Examination - Vital Signs Temperature: 96.4 F Blood Pressure: 147/94 Pulse: 89 Respirations: 20 Pulse Ox (%): 96 - Physical Exam General: Other (Appears as her stated age) HEENT: Atraumatic, Normocephalic Neck: Supple, JVD not distended Respiratory: Other (Symmetric chest expansion) Cardiovascular: No rubs, No murmurs Gastrointestinal: Soft and benign Musculoskeletal: No clubbing Integumentary: Other (Normal temp) Neurological: Normal speech, Normal tone Urinary: Other (No bladder distention) External genitalia: Deferred Rectal: Deferred Assessment And Plan - Plan # ANDREA 2/2 ischemic ATN/poor forward flow from rapid afib SCr improved to 1.4 HR controlled PO fluid intake as able Monitor renal panel Midline no longer working; ordered another midline placement tomorrow AM # Afib Rate controlled On metoprolol Mngt per Cardio # Acute respiratory failure 2/2 covid pna + rapid afib ABG on 05/06 showed respi acidosis + metabolic alk HR now controlled Further mngt per Pulmo service # Metabolic alkalosis Advised on adeq po hydration # Deconditioning PT/OT # Dispo Dc plan to SNF ongoing
[2021-05-08] MEDS: ENSURE ENLIVE 237 ML CAN PO SCH ×2 (07:38→21:00)
[2021-05-08] MEDS: VITAMIN D 1000 UNIT TAB PO SCH (07:39)
[2021-05-08] MEDS: FUROSEMIDE 40 MG TABLET PO SCH (07:39)
[2021-05-08] MEDS: THIAMINE HCL 100 MG TABLET PO SCH (07:39)
[2021-05-08] MEDS: CLOPIDOGREL 75 MG TABLET PO SCH (07:40)
[2021-05-08] MEDS: FERROUS SULFATE 325 MG TAB PO SCH ×2 (07:40→21:01)
[2021-05-08] MEDS: ASPIRIN EC 81 MG TAB PO SCH (07:41)
[2021-05-08] MEDS: predniSONE 20 MG TAB PO SCH ×2 (07:41→21:00)
[2021-05-08] MEDS: ACETAMINOPHEN 500 MG TAB PO PRN (10:54)
[2021-05-08 15:32] LABS: Albumin, (SPE) 2.7 g/dL (3.8-4.8); Alpha-1-Globulins 0.5 g/dL (0.2-0.3); Alpha-2-Globulins 0.9 g/dL (0.5-0.9); Gamma Globulins 0.5 g/dL (0.8-1.7); INTERPRETATION REPORT
[2021-05-08] MEDS: METOPROLOL TAR 25 MG TAB PO SCH (17:30)
[2021-05-08] MEDS: ATORVASTATIN 20 MG TAB PO SCH (21:01)
[2021-05-09] MEDS: LORAZEPAM 0.5 MG TABLET PO PRN (01:03)
[2021-05-09 04:17] VITALS: O2SAT 93
[2021-05-09 05:59] VITALS: TEMP 97.1
[2021-05-09] MEDS ORDERED: METOPROLOL TAR 25 MG TAB PO SCH (06:00)
[2021-05-09] MEDS: METOPROLOL TAR 25 MG TAB PO SCH (06:00)
--- NOTE | 2021-05-09 06:08 | P.PN ---
Date of Service: 05/09/21 Subjective: ROS: 10 point ROS as noted above, otherwise negative Physical exam GEN: AOx3, NAD HEENT: Normal conjunctiva, sclera anicteric CV: Irregularly irregular rhythm, no edema Pulm: Nonlabored respiration on RA ABD: Soft, nontender, nondistended Integumentary: No rashes Neuro: Moves all extremities, generalized weakness Problem List Atrial fibrillation with RVR Elevated D-dimer Acute respiratory failure with hypoxia secondary to diastolic CHF and COVID pneumonia Acute diastolic heart failure History of COVID pneumonia. Acute renal failure. Chronic anemia Hypothyroidism COPD exacerbation afib has been rate controlled on metoprolol. Amiodarone drip discontinued several days ago Echocardiogram: Normal EF, moderate pulmonary hypertension. Anticoagulation discontinued due to GI bleed. reports history of gastric ulcer. Elevated D-dimer could be related to COVID pneumonia. Nephrology is following for ANDREA. Serum creatinine is improving. Lasix drip discontinued several days ago Continue steroid for history of COVID pneumonia and COPD exacerbation. Pulmonary is following. Blood cultures: No growth to date. Sputum culture: Normal respiratory alicia. Off antibiotics. changed IV meds to PO due to no IV access - pulled central line, and difficult to obtain PIV a few days ago midline placed evening of 05/04, labs improving Continue home aspirin/Plavix Code: full Dispo: telemetry, does not need ICU level of care working with PT, significant weakness, agreeable to SNF, psychosocial rehabilitation counselor consulted Time Spent Managing Pts Care (In Minutes): 35
[2021-05-09] MEDS: LEVOTHYROXINE SOD 0.025 MG TAB PO SCH (06:11)
[2021-05-09 06:42] LABS: Absolute Lymphocytes (CBC) 1.1 K/uL (0.7-4.9); Basophils % 0.2 % (0-1.3); Hematocrit 33.1 % (36.0-45.0); Lymphocytes % 6.3 % (15.3-44.8); MPV 8.9 fL (7.6-11.3)
[2021-05-09] MEDS ORDERED: IPRATROPIUM BROM 0.5MG/2.5ML NEB PRN (07:16)
[2021-05-09 07:33] LABS: Magnesium 2.1 mg/dL (1.8-2.4); Potassium 4.5 mmol/L (3.5-5.1)
[2021-05-09] MEDS: predniSONE 20 MG TAB PO SCH (07:52)
[2021-05-09] MEDS: FUROSEMIDE 40 MG TABLET PO SCH (07:52)
[2021-05-09] MEDS: VITAMIN D 1000 UNIT TAB PO SCH (07:52)
[2021-05-09] MEDS: THIAMINE HCL 100 MG TABLET PO SCH (07:53)
[2021-05-09] MEDS: FERROUS SULFATE 325 MG TAB PO SCH (07:53)
[2021-05-09] MEDS: CLOPIDOGREL 75 MG TABLET PO SCH (07:53)
[2021-05-09] MEDS: ENSURE ENLIVE 237 ML CAN PO SCH (07:54)
[2021-05-09] MEDS: ASPIRIN EC 81 MG TAB PO SCH (07:54)
--- NOTE | 2021-05-09 10:07 | P.DS ---
Admission Date: 04/25/21 Discharge Date: 05/09/21 Disposition: TRANSFER TO SNF - REHAB Discharge Condition: GOOD Reason for Admission: Respiratory failure Consultations: Nephrology - Dr. Singh, [place] Pulmonology - Dr. Pablo Cardiology - Dr. Shaver Procedures: CXR (04/25): IMPRESSION: Diffuse interstitial opacification worse than seen April 02. Scattered lower lung field alveolar opacities also present. Interstitial edema or infiltrate suspected. Viral pneumonia including COVID-19 pneumonia can have this presentation. CXR (04/26): IMPRESSION: Mild to moderate CHF/ volume overload pattern is present. CXR (04/27): IMPRESSION: 1. Interval increase in multifocal bilateral interstitial and airspace opacities which may be related to acute pneumonic process or pulmonary edema. Renal ultrasound (04/28): FINDINGS: Both kidneys are normal in size, shape and echotexture. The right kidney measures 10.1 cm. No hydronephrosis, focal mass or perinephric fluid. The left kidney measures 10.9 C. No hydronephrosis, focal mass or perinephric fluid. IMPRESSION: No evidence hydronephrosis. Unremarkable renal ultrasound. CXR (04/28): Endotracheal tube with its tip 14 millimeters above the top of the aortic arch. Nasogastric tube enters stomach. IMPRESSION: Mild improvement in right and no significant change in left pulmonary opacities. CXR (04/29): FINDINGS: Endotracheal tube tip is 1 centimeter above the aortic arch. Tip is positioned between the clavicle heads and aortic arch which is still an acceptable range. This is 5 cm above the ailyn. NG tube extends below the diaphragm. Tip is in the proximal stomach. The side port is near the GE junction. Left subclavian central line tip is mid SVC, good positioning. Interstitial and alveolar opacities are present, greater on the left, not substantially different from prior day imaging. Cardiomegaly and mild vascular engorgement remain. Trachea is midline. No pneumothorax or large pleural effusion. IMPRESSION: Cardiomegaly, vascular engorgement and interstitial edema or infiltrate pattern remain. Cardiopulmonary findings are not clearly different from prior day study. Retrocardiac left base is more limited in detail. Tubes and lines are unchanged as detailed. CT head (05/01): FINDINGS: No intracranial hemorrhage, hydrocephalus or extra-axial fluid collection.Mild brain atrophy.No areas of brain edema or evidence of midline shift. A nasogastric tube is present. The paranasal sinuses and mastoids are clear. The calvarium is intact. IMPRESSION: No acute intracranial abnormality. CXR (05/03): FINDINGS: The right lung opacities have partially resolved. Mild improvement in the left basilar opacities. Small left pleural effusion. Heart remains enlarged IMPRESSION: Partial resolution in the right lung opacities. Mild improvement in the left basilar opacities Echocardiogram (04/26): Left atrial enlargement. Normal LVEF in size (63%) Mild tricuspid regurgitation. Moderate pulmonary hypertension RVSP: 44 mmHg Problem List Acute hypoxemic respiratory failure secondary to acute diastolic CHF exacerbation, COPD exacerbation, and possible ongoing COVID pneumonia Atrial fibrillation with RVR Acute on chronic diastolic congestive heart failure History of recent COVID pneumonia. Acute renal failure. Anemia of chronic disease Hypothyroidism Brief History of Present Illness: 71 yo F with CHF, afib, hypothyroidism, HTN, HLD who presents with 2 days of SOB. She had COVID last month and was discharged with home O2. Recently, her O2 sats have been 94-95% so she hasn't had to use her O2. For the past 2 days, her sats have been 88% and she has required 2-3L. She also reports 8/10 left sided chest pain without radiation beginning at rest and lasting for 15-20 minutes. She reports nausea. Denies all other symptoms. She was found to be in afib with RVR upon presentation to the ED, rate 140-150s, not responsive to IV lopressor. Cardiology was consulted and decision was made to start an amiodarone drip via central line. Patient COVID+ in the ED. Hospital Course: Acute hypoxemic respiratory failure Suspected secondary to acute on chronic CHF exacerbation, in setting of rapid atrial fibrillation and recent COVID-19 pneumonia. Patient was intubated and remained on the ventilator for few days. Pulmonology was consulted, and felt her COVID-19 pneumonia may not have fully cleared. Patient improved with diuresis and steroids. She was subsequently extubated, and continued to do well. She was weaned down to room air with intermittent use of 2 L nasal cannula. She was noted to be significantly debilitated, physical therapy evaluated and worked with the patient. It was recommended that she be discharged to a SNF for ongoing rehab. She was maintained on Lasix 40 mg daily. Patient remained afebrile, cultures were negative, and initial empiric antibiotics were discontinued with no further issues/complication during hospitalization. She is to continue prednisone 20 mg daily for 7 days Atrial fibrillation Patient was initially fibrillation with an amiodarone drip and symptoms of digoxin. She did not respond well to these medications were discontinued, and she was treated with metoprolol. She achieved rate control with 25 mg metoprolol twice daily. Her blood pressure at times is in the lownormal and, and her metoprolol was decreased to 12.5 mg twice daily. She was initially started on anticoagulation, however hematemesis was noted. Anticoagulation was discontinued due to GI bleed. Patient did not require blood transfusion. Patient's and had reported a history of a gastric ulcer. She was maintained on her home regimen of aspirin/Plavix without issue. ANDREA secondary to ischemic ATN/poor forward flow from rapid A. fib Her creatinine improved from 2.7 down to 1.04. Nephrology was consulted. Throughout her hospitalization she was managed with slight fluids and diuresis, with ongoing diuresis with 40 mg p.o. Lasix since extubation. P.o. fluid intake as able/tolerated for now. On admission/intubation, patient did have a central line, however once extubated, she pulled it out due to confusion/delirium (resolved). Patient was difficult to obtain peripheral IV access so a midline was placed on 05/04 to obtain blood work. Patient continued to improve and was discharged to SNF for ongoing rehab on 05/09. Vital Signs/Physical Exam: Physical exam GEN: AOx3, NAD HEENT: Normal conjunctiva, sclera anicteric CV: Irregularly irregular rhythm, no edema Pulm: Nonlabored respiration on RA ABD: Soft, nontender, nondistended Integumentary: No rashes Neuro: Moves all extremities, generalized weakness Temp Pulse Resp BP Pulse Ox 97.1 F 78 19 110/51 L 90 L 05/09/21 08:00 05/09/21 08:00 05/09/21 08:00 05/09/21 08:00 05/09/21 08:00 Laboratory Data at Discharge: WBC 17.10 K/uL (4.3-10.9) H 05/09/21 06:19 Hgb 10.3 g/dL (12.0-15.0) L 05/09/21 06:19 Hct 33.1 % (36.0-45.0) L 05/09/21 06:19 Plt Count 294 K/uL (152-406) 05/09/21 06:19 PT 13.9 SECONDS (9.5-12.5) H 04/25/21 16:45 INR 1.21 04/25/21 16:45 APTT 29.3 SECONDS (24.3-36.9) 04/25/21 16:45 Sodium 141 mmol/L (136-145) 05/09/21 06:19 Potassium 4.5 mmol/L (3.5-5.1) 05/09/21 06:19 BUN 47 mg/dL (7-18) H 05/09/21 06:19 Creatinine 1.04 mg/dL (0.55-1.3) 05/09/21 06:19 Glucose 114 mg/dL (74-106) H 05/09/21 06:19 Uric Acid 14.7 mg/dL (2.6-6.0) H 04/28/21 14:22 Phosphorus Cancelled 05/08/21 04:00 Magnesium 2.1 mg/dL (1.8-2.4) 05/09/21 06:19 Total Bilirubin 0.4 mg/dL (0.2-1.0) 05/07/21 09:23 AST 40 U/L (15-37) H 05/07/21 09:23 ALT 47 U/L (12-78) 05/07/21 09:23 Alkaline Phosphatase 49 U/L (45-117) 05/07/21 09:23 Troponin I 0.02 ng/mL (0.0-0.045) 04/26/21 11:21 Triglycerides 83 mg/dL (<150) 04/26/21 04:41 Cholesterol 82 mg/dL (<200) 04/26/21 04:41 HDL Cholesterol 28 mg/dL (40-60) L 04/26/21 04:41 Cholesterol/HDL Ratio 2.93 04/26/21 04:41 Lipase 74 U/L (73-393) 04/25/21 16:45 Home Medications: Ascorbic Acid [Vitamin C*] 500 mg PO DAILY 09/21/20 Aspirin [Aspirin EC] 81 mg PO DAILY 09/21/20 Atorvastatin Calcium [Lipitor*] 20 mg PO BEDTIME 09/21/20 Fenofibrate [Tricor*] 145 mg PO DAILY 09/21/20 Levothyroxine Sodium 25 mcg PO DAILY 04/02/21 Metoprolol Tartrate 25 mg PO DAILY 04/02/21 Potassium Chloride 20 meq PO DAILY 04/02/21 Cyanocobalamin (Vitamin B-12) [Vitamin B-12] 1,000 mcg PO DAILY #90 capsule 04/04/21 Ferrous Sulfate [Iron] 325 mg PO BID #60 tablet 04/04/21 Clopidogrel Bisulfate [Plavix] 75 mg PO DAILY 05/04/21 Furosemide [Lasix*] 40 mg PO DAILY tab 05/09/21 Metoprolol Tartrate [Lopressor*] 12.5 mg PO BID 6AM 6PM tab 05/09/21 predniSONE [Prednisone*] 20 mg PO DAILY 7 Days #7 tab 05/09/21 Diet: AHA Activity: Ad mattie Followup: Jarad Ruano MD [Primary Care Provider] - Time spent managing pt's care (in minutes): 45
[2021-05-09 13:47] VITALS: BP 129/86
--- NOTE | 2021-05-09 21:05 | PN ---
Date of Progress Note: 05/09/2021 Chief Complaint: Respiratory failure, acute kidney injury. History Of Present Illness: The patient remains in ICU. Physical Examination: Neck: Supple. No JVD. Lungs: Few rhonchi. Heart: S1, S2. Abdomen: Soft. Extremities: No edema. Impression And Plan: 1.Acute on chronic kidney injury, acute kidney injury, is nonoliguric secondary to ischemic acute tu bular necrosis due to renal hypoperfusion in the setting of atrial fibrillation with rapid ventricula r response. Heart rate is controlled. Blood pressure is stable. Continue to monitor renal panel. Continue diuretic as needed for congestive heart failure. 2.Atrial fibrillation, rate controlled on metoprolol per Cardiology. 3.Acute respiratory failure due to COVID pneumonia and congestive heart failure. Continue O2 manage ment and diuretic as needed. per primary team. KOURTNEY/MARK Voice ID: [id number] Report ID: [id number]
[2021-05-11 14:07] LABS: HBsAG Nonreactive (Nonreactive)
== END 2021-05-09 15:28 | DRG 208 ==
LOC: ER 15:27 → ERHOLD 20:15 → 3RD-ICU 04-26 03:30
PROVIDERS: ADMIT Internal Medicine; ATTEND Hospitalist
PROC: 5A09457 Assistance with Respiratory Ventilation, 24-96 Consecutive Hours, Continuous Positive Airway Pressure (ICD-10-PCS; 2021-04-26)
PROC: 05HY33Z Insertion of Infusion Device into Upper Vein, Percutaneous Approach (ICD-10-PCS; 2021-04-26)
PROC: 5A1945Z Respiratory Ventilation, 24-96 Consecutive Hours (ICD-10-PCS; principal; 2021-04-27)
PROC: 0BH17EZ Insertion of Endotracheal Airway into Trachea, Via Natural or Artificial Opening (ICD-10-PCS; 2021-04-27)
DX: U07.1 COVID-19 (principal); J96.01 Acute respiratory failure with hypoxia; J12.82 Pneumonia due to coronavirus disease 2019; N17.0 Acute kidney failure with tubular necrosis; I50.33 Acute on chronic diastolic (congestive) heart failure; J44.1 Chronic obstructive pulmonary disease with (acute) exacerbation; J44.0 Chronic obstructive pulmonary disease with (acute) lower respiratory infection; E87.1 Hypo-osmolality and hyponatremia; E87.2 Acidosis; E87.0 Hyperosmolality and hypernatremia; E87.4 Mixed disorder of acid-base balance; I13.0 Hypertensive heart and chronic kidney disease with heart failure and stage 1 through stage 4 chronic kidney disease, or unspecified chronic kidney disease; N18.30 Chronic kidney disease, stage 3 unspecified; I48.0 Paroxysmal atrial fibrillation; E78.5 Hyperlipidemia, unspecified; I44.7 Left bundle-branch block, unspecified; E03.9 Hypothyroidism, unspecified; I25.10 Atherosclerotic heart disease of native coronary artery without angina pectoris; D64.9 Anemia, unspecified; E88.81 Metabolic syndrome and other insulin resistance; I27.20 Pulmonary hypertension, unspecified; F17.200 Nicotine dependence, unspecified, uncomplicated; E83.39 Other disorders of phosphorus metabolism; F41.0 Panic disorder [episodic paroxysmal anxiety]; K59.00 Constipation, unspecified; I95.9 Hypotension, unspecified; R79.89 Other specified abnormal findings of blood chemistry; Z79.52 Long term (current) use of systemic steroids; Z79.02 Long term (current) use of antithrombotics/antiplatelets; Z79.899 Other long term (current) drug therapy; Z79.890 Hormone replacement therapy; Z85.3 Personal history of malignant neoplasm of breast; Z90.12 Acquired absence of left breast and nipple; Z90.49 Acquired absence of other specified parts of digestive tract; Z90.710 Acquired absence of both cervix and uterus; Z79.82 Long term (current) use of aspirin; Z91.048 Other nonmedicinal substance allergy status; Z78.1 Physical restraint status
CPT/HCPCS: 36415; 70450; 71045; 74018; 76770; 80048; 80053; 80061; 80076; 80162; 81003; 82550; 82553; 82570; 82607; 82652; 82728; 82746; 82805; 82947; 83520; 83540; 83605; 83690; 83735; 83880; 83970; 84100; 84145; 84156; 84165; 84439; 84443; 84466; 84484; 84550; 85025; 85044; 85379; 85610; 85730; 86021; 86038; 86140; 86160; 86317; 86430; 86704; 86706; 87040; 87070; 87205; 87340; 87389; 87522; 92526; 92610; 93005; 93306; 94002; 94003; 94640; 94660; 94760; 96372; 97116; 97161; 97530; 99285; C9113; J0282; J0330; J0456; J0696; J1160; J1170; J1650; J1940; J2270; J2405; J2550; J2920; J3010; J7030; J7050; J7060; J7512; U0003

== ENCOUNTER 2021-06-17 02:49 | Inpatient (IN) | payer OTHER ==
--- OUTSIDE RECORDS SUMMARY | 2021-06-17 02:57 | XMS REPORT | Continuity of Care Document ---
:1950 Author Organization [facility] t Address [address] [place] [address] [place] [place] [address] Care Team Providers Name Role Phone Bindu SNIDER Primary Care Physician EDIS FERRER Attending Clinician Unavailable DARWIN, Temo Attending Clinician Unavailable Therapy, Covid Infusion Attending Clinician Unavailable Darwin SNIDER, Temo Attending Clinician Doctor Unassigned, Name Attending Clinician Unavailable Edis Ferrer MD Attending Clinician Prince SNIDER Attending Clinician Hitesh Novak MD Attending Clinician Unavailable Moy Nowak MD Attending Clinician Gary Mason MD Attending Clinician Bonnie Arellano MD Attending Clinician Unavailable Alexandria STARK Attending Clinician Unavailable EDIS FERRER Admitting Clinician Unavailable Payers Payer Name Policy Type Policy Number Effective Date Expiration Date S ource AETNA PPO OPEN [facility] [id number] 2020 NAP 00:00:00 AETNA MANAGED [id number] 2020 MEDICARE PPO-[id number] 00:00:00 Problems Condition Condition Condition Status Onset Resolution [...] Essential Disease Active [facility] hypert[facility] hypertens[facility] -05 [facility] - on on 00:00: Medical 00 Center Dyslipidem Dyslipidem Disease Active [facility] - [facility] - [facility] 00 Center 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, sthesis, 1-24 st lumbar lumbar 00:00: Hospita region region 00 l Lumbar Lumbar Disease Active Methodi stenosis stenosis 08-01 st 00:00: Hospita 00 l Left knee Left knee Disease Active Overview: Methodi pain pain 5-[address] 00:00: g of this Hospita [...] ents Source Name Type Date Date Clinician IODINE DRUG Active Anaphylaxis Unive rs INGREDI 03-11 ity of 00[place]: [place] 00 [facility] Iodine Propensi Active Anaphylaxis Uni vers ty to 03-11 ity of adverse 00:00: [place] reaction 00 Medical s Branch Shellfis Propensi Active Anaphylaxis Throat C HI [facility] h ty to 07-14 swelling [facility] - Containi adverse 00:00: Medical ng reaction 00 Center Products s SHELLFIS Allergy Active High Anaphylaxis [facility] 07-14 [facility] - CONTAINI 00:00: Medical NG 00 Center PRODUCTS Allergen Drug Active Other (See [facility] ic Allergy Comments) 9 [facility] - Extracts 00:00: Medical 00 Center ALLERGEN Allergy Active Other [facility] IC 24 [facility] - EXTRACTS 00:00: Medical 00 Center Iodine Drug Active Anaphylaxis Throat [facility] t And Allergy 01-11 swelling [facility] - Iodide 00:00: Medical Containi 00 Center ng Products Other Propensi Active "Seafood" [facility] S t ty to 01-11 "Cats" [facility] - adverse 00:00: Medical reaction 00 Center s IODINE Allergy Active High Anaphylaxis [facility] AND 01-11 [facility] - IODIDE 00:00: Medical CONTAINI 00 Center NG PRODUCTS OTHER Allergy Active [facility] 01-11 [facility] - 00:00: Medical 00 Center Iodine Propensi Active Methodi And ty to 01-11 st Iodide adverse 00:00: Hospita Containi reaction 00 l ng s to Products drug Iodine Adverse Active Info Not [facility] Reaction Available [facility] Cat Hair Adverse Active Info Not [facility] S t Extract Reaction Available [facility] NO KNOWN Drug Active Univers ALLERGIE Class ity of S [facility] Family History Family Member Diagnosis Comments Start Date Stop Date Source Natural mother Hypertension [facility] Natural mother [facility] Natural mother [facility] Natural brother Heart disease [facility] Natural father Cancer [facility] Natural father Cancer [facility] Social History Social Habit Start Date Stop Date Quantity Comments Source History SDOH [facility] - Alcohol Comment Medical C enter History SDOH [facility] - Alcohol Std Drinks Medica l Center History SDOH [facility] - Alcohol Binge Medical Krystian ter History of tobacco Cigarette Smoker [facility] Alcohol intake 2020-08-05 2020-08-05 [facility] - 00:00:00 00:00:00 non-drinker Medical Cente r (finding) Cigarettes smoked 2020-07-13 2020-07-[address] [facility] - current (pack per 00:00:00 00:00:00 Medical Center day) - Reported Cigarette 2020-07-13 2020-07-[address] [facility] - pack-years 00:00:00 00:00:00 Medical Center Tobacco use and 2020-07-13 2020-07-[address] [facility] - exposure 00:00:00 00:00:00 Medical Center History SDOH 2020-07-13 2020-07-[address] [facility] - Alcohol Frequency 00:00:00 00:00:00 [facility] Sex Assigned At [address] [facility] - 00:00:00 00:00:00 [facility] Smoking Status Start Date Stop Date Source Unknown if ever smoked [facility] Current every day smoker 2017-10-02 00:00:00 [facility] Medications Ordered Filled Start Stop Current Ordering Indication Dosage Frequency Signature Comments Components Source Medication Medication Date Date Medication? Clinician (SIG) Name Name casirivimab 2020- No [id number] 1200mg 1,200 mg, Univers -imdevimab 03-11 Subcutaneo it y of (REGEN-COV 17:15: 15:57 [place], [place]CE, [place] (EUA[place] 00 :00 1 dose, Medical injection 03/11/21 Bran ch 1,200 mg at 1215, Routine casirivimab 2020- No [id number] 1200mg 1,200 mg, Univers -imdevimab 03-11 Subcutaneo it y of (REGEN-COV 17:15: 15:57 us, ONCE, [place] (EUA)) 00 :00 1 dose, Medical injection 03/11/21 Bran ch 1,200 mg at 1215, Routine lisinopril- Yes 1{tbl} QD Take [address] hydroCHLORO 1-28 tablet by Cord[facility] es - thiazide 12:33: mouth Medical (SHELLE,Z 40 daily. Center ESTORETIC) 20-12.5 mg per tablet lisinopril- Yes 1{tbl} QD Take [address] hydroCHLORO - tablet by Cordelia es - thiazide 12:33: mouth Medical (PRINZIDE,Z 40 daily. [place] ESTORETIC) 20-12.5 mg per tablet ascorbic Yes 500mg QD Take [address] acid, 1-28 mg by [facility] - vitamin C, 12:32: mouth Medica l (ascorbic 02 daily. [place] acid with gael hips) 500 MG tablet ascorbic Yes 500mg QD Take [address] acid, 1-28 mg by [facility]ukes - vitamin C, 12:32: mouth Medica l (ascorbic 02 daily. [place] acid with gael hips) 500 MG tablet multivitami Yes 1{tbl} QD Take [address] n per 08-05 tablet by [facility] - tablet 12:30: mouth Medical 35 daily. [place] aspirin 81 Yes 81mg QD Take [address] MG EC 08-05 by mouth [facility] - tablet 12:30: daily. [address] clopidogreL Yes 75mg QD Take [address] (PLAVIX) 75 08-05 by mouth Luke s - mg tablet 12:30: daily. Medica l [address] [place] [address] multivitami Yes 1{tbl} QD Take [address] n per 08-05 tablet by [facility] - tablet 12:30: mouth Medical 35 daily. [place] aspirin 81 Yes 81mg QD Take [address] MG EC 08-05 by mouth [facility] - tablet 12:30: daily. [address] clopidogreL Yes 75mg QD Take [address] (PLAVIX) 75 08-05 by mouth Luke s - mg tablet 12:30: daily. Medica l 35 [place] atorvastati 2021- No 20mg QD Take 1 [...] Take [address] (ZOCOR) 40 1-15 -15 by mouth Luke s - MG tablet 11:48: 00:00 daily. Medic al 29 : Center simvastatin 2020- No 40mg QD Take [address] (ZOCOR) 40 1-15 -15 by mouth Luke s - MG tablet 11:48: 00:00 daily. Medic al 29 : Center metoprolol 2021- No 12.5mg Q.5D Take 0.[address] tartrate 1-15 -15 tablets [facility]ukes - (LOPRESSOR) 00:00: 23:59 (12.5 mg M edical 25 MG 00 :00 total) by Center tablet mouth 2 (two) times daily. furosemide 2021- No 20mg QD Take [address] (LASIX) 20 -15 -15 tablet (20 Lionel kes - MG tablet 00:00: 23:59 mg total) Me dical 00 :00 by mouth Center daily. potassium 2021- No 10meq QD Take [address] chloride 1-15 -15 tablet (10 Luke s - (KLOR-CON) 00:00: 23:59 mEq total) Medical 10 MEQ CR 00 :00 by mouth Center tablet daily. metoprolol 2021- No 12.5mg Q.5D Take 0.[address] tartrate 1-15 -15 tablets [facility]ukes - (LOPRESSOR) 00:00: 23:59 (12.5 mg M edical 25 MG 00 :00 total) by Center tablet mouth 2 (two) times daily. furosemide 2021- No 20mg QD Take [address] (LASIX) 20 -15 -15 tablet (20 Lionel kes - MG tablet 00:00: 23:59 mg total) Me dical 00 :00 by mouth Center daily. potassium 2021- No 10meq QD Take [address] chloride 1-15 -15 tablet (10 Luke s - (KLOR-CON) 00:00: 23:59 mEq total) Medical 10 MEQ CR 00 :00 by mouth Center tablet daily. traMADoL 2020- No 50mg Take [address] (ULTRAM) 50 1-15 -25 tablet (50 L ukes - mg tablet 00:00: 23:59 mg total) Me dical 00 :00 by mouth Center every 6 (six) hours as needed for up to 10 days. Max Daily Amount: 200 mg traMADoL 2020- No 50mg Take [address] (ULTRAM) 50 1-15 -25 tablet (50 L ukes - mg tablet 00:00: 23:59 mg total) Me dical 00 :00 by mouth Center every 6 (six) hours as needed for up to 10 days. Max Daily Amount: 200 mg chlorhexidi 2020- No 118mL [facility] ne 07-16 [facility]ukes - (HIBICLENS) 08:37: 09:08 Medic al external 20 :29 Center liquid 4% chlorhexidi No 118mL [facility] ne 07-16 [facility]ukes - (HIBICLENS) 08:37: 09:08 Medic al external 20 :29 Center liquid 4% metoprolol 2019-07 No 25mg Q.5D Take [address] tartrate -17 -15 by mouth 2 Luke s - (LOPRESSOR) 00:00: 00:00 (two) Medi danny 25 MG 00 :00 times Center tablet daily. metoprolol 2019-07 No 25mg Q.5D Take [address] tartrate 1-17 -15 by mouth 2 Luke s - (LOPRESSOR) [...] 00:00: mouth Medical tablet 00 daily. Center fenofibrate 2019-07 Yes 145mg QD Take [address] (TRICOR) 0-15 mg by Lukes - 145 MG 00:00: mouth Medical tablet 00 daily. [place] omeprazole 2019-07- No 40mg QD Take [address] (PriLOSEC) 007-16 by mouth Luke s - 40 MG 00:00: 00:00 daily. Medical capsule 00 :00 [place] omeprazole 2019-07- No 40mg QD Take [address] (PriLOSEC) 007-16 by mouth Luke s - 40 MG 00:00: 00:00 daily. Medical capsule 00 :00 [place] Tylenol # 3 Tylenol # 3 Yes [...] QD Take 40 mg Methodi (ZOCOR) 40 -[address] MG tablet 16:42: daily. [...] not [facility] ne Sodium ne Sodium Bennett defined [facility] Acetaminoph Acetaminoph Yes Migel not [facility] en-Codeine en-Codeine Bennett defined [facility] - #3 #[facility] Immunizations Ordered Filled Immunization Date Status Comments [facility] e Immunization Name Name SARS-COV-2 COVID-19 2020-10-23 Completed Unive rsity of PFIZER VACCINE 00:00:00 [facility] SARS-COV-2 COVID-19 2020-10-23 Completed Unive rsity of PFIZER VACCINE 00:00:00 [facility] SARS-COV-2 COVID-19 2020-10-23 Completed Unive rsity of PFIZER VACCINE 00:00:00 [facility] SARS-COV-2 COVID-19 2020-10-23 Completed Unive rsity of PFIZER VACCINE 00:00:00 [facility] SARS-COV-2 COVID-19 2020-10-03 Completed Unive rsity of PFIZER VACCINE 00:00:00 [facility] SARS-COV-2 COVID-19 2020-10-03 Completed Unive rsity of PFIZER VACCINE 00:00:00 [facility] SARS-COV-2 COVID-19 2020-10-03 Completed Unive rsity of PFIZER VACCINE 00:00:00 [facility] SARS-COV-2 COVID-19 2020-10-03 Completed Unive rsity of PFIZER VACCINE 00:00:00 [facility] Vital Signs Vital Name Observation Time Observation Value Comments Source WEIGHT 2020-07-23 10:01:00 97.569 kg WEIGHT 2020-07-22 05:51:00 94.6 kg HEIGHT 2020-07-21 15:17:00 167.6 cm WEIGHT 2020-07-21 15:17:00 95.255 kg HEIGHT 2020-07-21 12:00:00 167.6 cm WEIGHT 2020-07-21 12:00:00 95.255 kg WEIGHT 2020-07-20 08:00:00 95.5 kg HEIGHT 2020-07-14 09:47:00 167.6 cm WEIGHT 2020-07-14 09:47:00 92.987 kg Oxygen saturation in 2021-03-11 16:53:00 94 /min [facility] Arterial blood by [facility] Pulse oximetry Branch Systolic blood 2021-03-11 16:53:00 109 mm[Hg] Univer sity of pressure [facility] Diastolic blood 2021-03-11 16:53:00 62 mm[Hg] Unive rsity of [facility] Heart rate 2021-03-11 16:53:00 92 /min Universi ty [facility] Body temperature 2021-03-11 16:53:00 36.67 Nallely [facility] Respiratory rate 2021-03-11 16:53:00 18 /min [facility] Body height 2021-03-11 15:58:00 167.6 cm Universi ty [facility] Body weight 2021-03-11 15:58:00 99.791 kg Universi ty [facility] BMI 2021-03-11 15:58:00 35.51 kg/m2 Universi ty [facility] HEIGHT 2020-08-05 12:28:00 167.6 cm WEIGHT 2020-08-05 12:28:00 97.523 kg HEIGHT 2020-08-05 12:28:00 167.6 cm WEIGHT 2020-08-05 12:28:00 97.523 kg WEIGHT 2020-07-23 10:01:00 97.569 kg WEIGHT 2020-07-22 05:51:00 94.6 kg HEIGHT 2020-07-21 15:17:00 167.6 cm WEIGHT 2020-07-21 15:17:00 95.255 kg HEIGHT 2020-07-21 12:00:00 167.6 cm WEIGHT 2020-07-21 12:00:00 95.255 kg WEIGHT 2020-07-20 08:00:00 95.5 kg HEIGHT 2020-07-14 09:47:00 167.6 cm WEIGHT 2020-07-14 09:47:00 92.987 kg HEIGHT 2020-07-16 08:24:00 167.6 cm WEIGHT 2020-07-16 08:24:00 95.255 kg HEIGHT 2020-07-16 08:24:00 167.6 cm WEIGHT 2020-07-16 08:24:00 95.255 kg HEIGHT 2020-07-13 14:32:00 167.6 cm WEIGHT 2020-07-13 14:32:00 94.802 kg HEIGHT 2020-07-13 14:32:00 167.6 cm WEIGHT 2020-07-13 14:32:00 94.802 kg Systolic blood 2020-08-05 12:28:00 124 mm[Hg] [facility] Diastolic blood 2020-08-05 12:28:00 60 mm[Hg] [facility] Heart rate 2020-08-05 12:28:00 85 /min [facility] Body temperature 2020-08-05 12:28:00 37 Nallely [facility] Respiratory rate 2020-08-05 12:28:00 18 /min [facility] Body height 2020-08-05 12:28:00 167.6 cm [facility] Body weight 2020-08-05 12:28:00 97.523 kg [facility] BMI 2020-08-05 12:28:00 34.70 kg/m2 [facility] Oxygen saturation in 2020-08-05 12:28:00 96 /min room iar [facility] Arterial blood by Medical Ce nter Pulse oximetry Procedures Procedure Date / Time Performing Clinician Source Performed [id number] CONSENT 2021-03-11 05:01:00 Doctor Unassigned, [facility] PREPARE LEUKO-REDUCED RBC 2020-07-23 23:54:00 Sandy Freed [facility] POCT-GLUCOSE METER 2020-07-23 14:31:00 Mic Ferrer [facility] BASIC METABOLIC PANEL (7) 2020-07-23 06:02:00 Trish Gallardo CH, I [facility] CBC W/PLT COUNT & AUTO 2020-07-23 06:02:00 Trish Gallardo [facility] DIFFERENTIAL [facility] MAGNESIUM 2020-07-23 06:02:00 Beram, Jihad [facility] PHOSPHORUS 2020-07-23 06:02:00 Jonathan Gallardoscar [facility] CBC W/PLT COUNT & AUTO 2020-07-23 06:02:00 Trish Gallardo [facility] S [facility] POCT-GLUCOSE METER 2020-07-23 05:04:00 CarissaMic mcfarland [facility] ECG 12-LEAD 2020-07-23 01:57:40 Jovan Nunes [facility] ECG 12-LEAD 2020-07-23 01:57:40 Unknown, Hl7 Doctor [facility] XR CHEST 1 VIEW PORTABLE / 2020-07-23 00:49:00 Mic Ferrer [facility] POCT-GLUCOSE METER 2020-07-23 00:39:00 Carissa, [facility] POCT-BLOOD GASES, VENOUS 2020-07-23 00:34:00 Carissa [facility] POCT-SODIUM 2020-07-23 00:34:00 Carissa, [facility] POCT-POTASSIUM 2020-07-23 00:34:00 Carissa, [facility] POCT-HEMOGLOBIN 2020-07-23 00:34:00 Carissa [facility] POCT-HEMATOCRIT 2020-07-23 00:34:00 Carissa [facility] POCT-CALCIUM IONIZED 2020-07-23 00:34:00 Carissa [facility] POCT-GLUCOSE 2020-07-23 00:34:00 Carissa, [facility] TRANSFUSE LEUKO-REDUCED 2020-07-22 20:20:19 Sandy Freed [facility] - RED BLOOD CELLS [facility] TRANSFUSE LEUKO-REDUCED 2020-07-22 17:48:00 Sandy Freed [facility] - RED BLOOD CELLS [facility] BLOOD GAS, ARTERIAL 2020-07-22 14:58:00 Sandy Freed [facility] CBC W/PLT COUNT & AUTO 2020-07-22 14:57:00 Sandy Freed [facility] BASIC METABOLIC PANEL (7) 2020-07-22 14:57:00 Sandy Freed [facility] MAGNESIUM 2020-07-22 14:57:00 Sandy Freed [facility] PHOSPHORUS 2020-07-22 14:57:00 Sandy Freed [facility] LACTIC ACID, ARTERIAL 2020-07-22 14:57:00 Sandy Freed [facility] CBC W/PLT COUNT & AUTO 2020-07-22 14:57:00 [facility] CHEST 1 VIEW PORTABLE / 2020-07-22 13:18:00 Sandy Freed [facility] CALCIUM, IONIZED 2020-07-22 11:14:[address] [facility] HGB/HCT (H&H) - STAT LAB 2020-07-22 11:13:00 Alexander [facility] POTASSIUM-STAT LAB 2020-07-22 11:13:00 Paulina [facility] GLUCOSE-STAT LAB 2020-07-22 11:13:[address] [facility] TISSUE EXAM 2020-07-22 09:13:00 Carissa [facility] ENDARTERECTOMY,CAROTID 2020-07-22 07:29:00 Carissa [facility] POCT-GLUCOSE METER 2020-07-22 05:08:00 Carissa [facility] CBC W/PLT COUNT & AUTO 2020-07-22 05:00:00 Paulina [facility] BASIC METABOLIC PANEL (7) 2020-07-22 05:00:00 Trish Gallardo Norberto [facility] CBC W/PLT COUNT & AUTO 2020-07-22 05:00:00 Mita Nowak Moy HEIDY S [facility] - DIFFERENTIAL [facility] MAGNESIUM 2020-07-22 05:00:00 [facility] PHOSPHORUS 2020-07-22 05:00:00 [facility] POCT-GLUCOSE METER 2020-07-21 20:53:00 [facility] POCT-GLUCOSE METER 2020-07-21 16:28:00 [facility] ECG 12-LEAD 2020-07-21 16:27:56 Unknown, Hl7 [facility] ECG 12-LEAD 2020-07-21 16:27:56 Unknown, Hl7 [facility] SARS-COV2/RT-PCR ([facility] & 2020-07-21 15:18:00 [facility] - REF LABS) [facility] PROTHROMBIN TIME/INR 2020-07-21 15:18:[address] [facility] APTT 2020-07-21 15:18:00 [facility] R & L CATH (+/- SATS & 2020-07-21 08:41:00 SheOmidashleigh Moy [facility] Moy singh [facility] - CARDIAC OUTPUT) [facility] CBC W/PLT COUNT & AUTO 2020-07-21 03:24:00 [facility] S [facility] BASIC METABOLIC PANEL (7) 2020-07-21 03:24:00 [facility] CBC W/PLT COUNT & AUTO 2020-07-21 03:24:00 Liborio Motley [facility] S [facility] MAGNESIUM 2020-07-21 03:24:00 [facility] PHOSPHORUS 2020-07-21 03:24:00 [facility] POCT-GLUCOSE METER 2020-07-20 18:21:00 [facility] 12-LEAD 2020-07-20 17:37:05 Unknown, Hl7 [facility] POCT-GLUCOSE METER 2020-07-20 11:46:00 Carissa [facility] POCT-GLUCOSE METER 2020-07-20 06:54:00 Carissa, [facility] CBC W/PLT COUNT & AUTO 2020-07-20 03:32:00 Trish Gallardo [facility] BASIC METABOLIC PANEL (7) 2020-07-20 03:32:00 Trish Gallardo [facility] CBC W/PLT COUNT & AUTO 2020-07-20 03:32:00 iLborio Motley [facility] MAGNESIUM 2020-07-20 03:32:00 Trish Gallardo [facility] PHOSPHORUS 2020-07-20 03:32:00 [facility] POCT-GLUCOSE METER 2020-07-19 23:30:00 Carissa, [facility] LACTIC ACID, ARTERIAL 2020-07-19 17:30:00 Tiesha [facility] BLOOD GAS, ARTERIAL 2020-07-19 17:30:00 [facility] W/ DOPPLER 2020-07-19 17:18:13 Hayden Lewis [facility] (CW/PW/COLOR) [facility] URINALYSIS W/ REFLEX URINE 2020-07-19 16:38:00 Liborio Motley [facility] CBC W/PLT COUNT & AUTO 2020-07-19 15:07:00 Liborio Motley [facility] COMPREHENSIVE METABOLIC 2020-07-19 15:07:00 Liborio Motley [facility] MAGNESIUM 2020-07-19 15:07:00 Liborio Motley [facility] PHOSPHORUS 2020-07-19 15:07:00 [facility] W/PLT COUNT & AUTO 2020-07-19 15:07:00 Tiesha [facility] PROTHROMBIN TIME/INR 2020-07-19 15:07:00 [facility] 2020-07-19 15:07:00 [facility] TSH/FREE T4 IF INDICATED 2020-07-19 15:07:00 Tiesha [facility] LACTIC ACID, ARTERIAL 2020-07-19 15:07:00 Tiesha [facility] CORTISOL 2020-07-19 15:07:00 [facility] CHEST 1 VIEW PORTABLE / 2020-07-19 14:38:00 [facility] BLOOD GAS, ARTERIAL 2020-07-19 14:30:00 Lencho [facility] SODIUM NA-STAT LAB 2020-07-19 14:30:00 Valluri, [facility] POTASSIUM-STAT LAB 2020-07-19 14:30:00 Vallionelri, [facility] CALCIUM, IONIZED 2020-07-19 14:30:00 Valjerrod [facility] GLUCOSE-STAT LAB 2020-07-19 14:30:00 Vallionelri [facility] HGB/HCT (H&H) - STAT LAB 2020-07-19 14:30:00 Valluri [facility] PLATELET COUNT 2020-07-19 14:30:00 Lencho [facility] COLOR-FLOW MAPPING 2020-07-19 13:17:38 [facility] [place] CONT WAVE PULSED DOPPLER 2020-07-19 13:17:38 [facility] TRANSESOPHAGEAL ECHO 2020-07-19 13:00:53 Alexander [facility] ABORH, MANUAL 2020-07-19 08:49:00 Beckie Motley [facility] CARDIAC CATH REPORT - SCAN 2020-07-19 00:00:00 Provider, Default [facility] VASCULAR DIAGRAM -SCAN 2020-07-19 00:00:00 Provider, Default [facility] TYPE AND SCREEN, AUTOMATED 2020-07-16 09:12:[address] [facility] ECG 12-LEAD 2020-07-16 08:47:40 CarissaMic mcfarland [facility] ECG 12-LEAD 2020-07-16 08:47:40 Unknown, Hl7 Doctor [facility] SARS-COV2/RT-PCR ([facility] & 2020-07-16 08:39:00 Mic Ferrer [facility] - REF LABS) [facility] Plan of Care Planned Activity Planned Date Details Comments Source Future Scheduled 2021-03-[address] [facility] - Test 00:00:00 (Season Ended) [code = Medic al Center INFLUENZA VACCINE (Season Ended)] Future Scheduled 2021-03-[address] [facility] - Test 00:00:00 (Season Ended) [code = [facility] Center INFLUENZA VACCINE (Season Ended)] Future Scheduled [...] 00:00:00 (1 of 1 - Medical Center [id number] PCV13) [code = PNEUMOCOCCAL 65+ YRS (1 of 1 - [id number] PCV13)] Future Scheduled 2014 PNEUMOCOCCAL 65+ YRS [facility] - Test 00:00:00 (1 of 1 - [facility] [id number] PCV13) [code = PNEUMOCOCCAL 65+ YRS (1 of 1 - [id number] PCV13)] Future Scheduled 1999 SHINGLES VACCINES (1 [...] Medica l Center breast (procedure) [code = 205611442] Future Scheduled [address] [facility] - Test 00:00:00 malignant neoplasm of Medica l Center colon (procedure) [code = 139861891] Future Scheduled [address] [facility] [facility] - Test 00:00:00 malignant neoplasm of Medica l Center breast (procedure) [code = 337075528] Future Scheduled [address] [facility] [facility] - Test 00:00:00 malignant neoplasm of Medica l Center colon (procedure) [code = 152704321] Future Scheduled 65+ [facility]OCOCCAL [facility] Test VACCINE (1 of 2 - PPSV23) [code = 65+ PNEUMOCOCCAL VACCINE (1 of 2 - PPSV23)] Future Scheduled COVID-19 VACCINE (1) [facility] Test [code = COVID-19 VACCINE (1)] Future Scheduled Hepatitis C screening [facility] Test (procedure) [code = 313513940] Future Scheduled BREAST CANCER [facility] Test SCREENING [code = BREAST CANCER [...] Date/Time Type Type Clinicians Facility Department ID 2021-04-15 Inpatient [facility] [id number] [facility] 22:12:13 MIC 2021-03-11 2021-03-11 Outpatient R DARWIN [facility] [id number] Univers 11:00:00 11:00:00 BING chao of [facility] 2021-03-11 2021-03-11 Nurse Therapy, Adc Covid Infusion [facility] [id number] Univers 09:26:25 10:26:25 Visit Bing Smith 350.1.13.10 ity of [place]2.[place] [id number] [facility] [address] Branch 2021-03-11 2021-03-11 Orders Doctor JANELL [id number] [id number] [facility] 00:00:00 00:00:00 Only Unassigned, ANDREW 350.1.13.10 ity of [place] [facility] 4.2.7.2.686 Enrrique as [id number] [place] [address] Branch 2020-08-05 2020-08-05 Office Carissa, [facility] [id number] 12:24:29 12:39:29 Visit [facility] 2020-08-05 2020-08-05 Outpatient JOANNE FERRER [facility] [id number] SLE 00:00:00 00:00:00 MIC 2020-07-19 2020-07-23 Hospital JOANNE Woodbartolo [facility] [id number] 08:02:00 18:04:00 Encounter [facility] 2020-07-22 2020-07-22 Anesthesia Reg Morrison [facility] [id number] [facility] 07:22:00 10:54:00 Event Noel Novak [facility] 2020-07-22 2020-07-22 Surgery Carissa, [facility] [id number] 07:30:00 10:45:00 [facility] 2020-07-21 2020-07-21 Surgery She, [facility] [id number] 09:50:00 11:55:00 Mita Winter [facility] 2020-07-21 2020-07-[address] [facility] [id number] [facility] 00:[facility]:00 00:00:00 [facility] 2020-07-19 2020-07-19 Surgery Carissa, [facility] [id number] 10:30:00 13:45:00 [facility] 2020-07-19 2020-07-19 Anesthesia Ezequiel Mason [facility] [id number] 09:37:00 09:37:00 Event Selene Arellano [facility] 2020-07-16 2020-07-16 [facility] [id number] 08:21:42 08:36:42 Visit Alexandria Jared [facility] 2020-07-16 2020-07-16 Outpatient EL SLE [facility] [id number] [facility] 00:00:00 00:00:00 2020-07-16 2020-07-16 Orders [facility] [id number] 00:00:00 00:00:00 Only [facility] 2020-07-16 2020-07-[address] [facility] [id number] [facility] 00:[facility]:00 00:00:00 [facility] 2020-07-14 2020-07-14 [facility] [id number] 10:12:39 23:59:00 Encounter [facility] 2020-07-14 2020-07-14 Outpatient EL [facility]H [facility] [id number] SLE 00:00:00 00:00:00 2020-07-13 2020-07-13 Office Carissa [facility] [id number] 14:28:40 14:58:40 Visit [facility] 2020-07-13 2020-07-13 Outpatient CARISSA [facility] [id number] SLE 00:00:00 00:00:00 MIC 2020-07-13 2020-07-[address] [facility] [id number] [facility] 00:[facility]:00 00:00:00 [facility] 2018-04-01 2018-04-01 Out[facility] [id number] 14:00:00 14:00:00 [facility] ent Clinics 2018-03-04 2018-03-04 Out[facility] [id number] 11:00:00 11:00:00 [facility] ent Clinics Results Test Description Test Time Test Comments Results Result Sourc e Comments VASCULAR DIAGRAM 2020-08-03 [facility] 10:50:52 unspecified - Medical provider. [place] CARDIAC CATH 2020-08-03 [facility] [address] [facility] REPORT - SCAN 10:50:51 unspecified - Medical provider. [place] Tissue Exam 2020-07-30 18:09:00 Test Item Value Reference Range Interpretation Comme nts Case Report (test code = 104) Surgical Pathology Report Case: [id number] Authorizing Provider: Mic Ferrer MD Collected: 07/22/2020 09:13 AM Ordering Location: [facility] Received: 07/22/2020 10:56 AM PERIOPERATIVE SERVICES Pathologist: Timur Ray MD Specimen: Plaque, left carotid plaque DIAGNOSIS (test code = 3220) k8dokUWpUEIgt7qaQJBkzOYvUlSsLhHtUdLlRb pc dWMxIHtccnRmMVxlcGljOTIwMFxhbnNpXHNwbHRw O8RtavgsMJocPQ5eXY7izYhzuWGpiUDzAPYxBlFu s1rpv125rDXgs5lwVXHDynqvpQr7gCbeT01nh1E8 XwsfX03okFGdZBoghWPwxaiujxToOUOTSQBTWPmv IHMGTUJIKIOAINdUQLIOUqSVGbAOFyEGZZ2OJDbc sIBdUIZISUQESdtIABHXBXNUY2IUNRQQY3HJTyDD FGIJYHGzVEJapr13TTM3CvLff8J4BHJ9RRWgXMLs r3qyYBPmpZLgWrRcIlJhZrAmLdbvrAUfUDTxHdXf v6kbu240fWVqz7fmNSZhNdV0kFHkQUPbqQApR904 ADJrURvzs5lup1XhUFHktLVxw8M9CBEZacyweZk8 yImaG31ir4K5WndpN1nqJXGiXPNzL6GhLU3kPGEr Tur3MKJ7GOM9KEAqZADwP7AeRZ1nVXWlrAMdFZa1 x6zbdPbdELHsOUU6u9dbAYcyuvNzVZ3bnp7lfNq2 h4vlcgGqBQQyFMWueLHBXAYiG5DmeEkuUl0tqNr8 rSvkFhxoELN9Wgz3PS1vtc19gam1cHmdRHBmejhc YtP8CQcgHVCafzdzNVe3TJmzUGZnaBH7LSEnhNYg Z8KxRMItXJ6wvja7PXN3ASrqEIYqRxM9KVDgeYCz DOYksKgdGOmlk802SVV3VdAgHZ8zP2Fcz8S5tU5d iYSpALTsfWVdXvJdHROigg9fxVHlIMcou2VkDLO3 soU2wBLmgRWnAWOrUjL1MHiiHC9gnv80JNMoWBS6 ug0eaOHmmZrubvRcuBYzSQcgU9YtCRZvb404EXTu B7UcXVNhq4Y3rhGjJiPlSIPovHY6wrM6FKGbVX9q mhere7ndDVfeIHxtVCRztzB7peQ6FAHxvBNmD1Tp qP8oADCzMI3bkkbvi6wiVMD7RUdaCAMqFRG8McGd TRQdo3Ztbvj4YmErk0CusQDzENkrA91sh505NKMy trAiV3ynnWCkllseiCIurizuPKnkrzA5QDTgQObf dzzfBVCcICepI0atDlJwMQRpvUtkKWeol9JkIUYk TGNpWoGcoYWiBOGwAxe0CPApcXUzLJOoRvGbS8vp aleuCuWFZZWhg6lfT8msuCKYwIBuR3RrFGelatYx RAhzBAzsBLYaGTJ7ZE51CpbgZCVpip88 CPT Code(s) (test code = 3357) s1uwgPPrTBSmgDI9GmZvBRDph2rai5GxxQXz cGFy PWdnoSOdwiJfqp06zTH9tT87EX0oMCKmGzU8JDPq rxT5Pgm8FQHaAUVcfPLlD100g4pxh3pxacJhiEN0 wBcdGHOsCBYvZOjiDEKoRwJaRXaoDND9MTu5TkEe XHBhcn0= CLINICAL HISTORY (test code = 3356) m9qsxGXeJGUctDV1ZjQcHYUaf8lji5Z sdHBncGFy MJqetYIgvuZvvm00uZV9zW11CS9tRQImKlA8VFUw bkI7Usa7QEPfMGOlgZKgK709o3dtm1mgpaNxyAM5 fVxwYXJkXHBsYWluXGZzMjAgTGVmdCBjYXJvdGlk VXN2NP4md1loAHYugt5= SPECIMEN SOURCE (test code = 3377) z4vgsWLiFDWkxOT2RpRzJOCac5oum3Bl dHBncGFy AHukoEAavcCxtu04tVW0aI71MI2uOSPwTxN6QKNa isH7Msv1XIXrHJIkoNTlS118n0chm8yozsDsvYV0 fVxwYXJkXHBsYWluXGZzMjAgUGxhcXVlXHBhcn0= GROSS DESCRIPTION (test code = 3366) h0codDXfDPOihNNcMsDcOLXrDVIrm6 lcZGVmbGFu [file] yfwcAJPoXUsCXWuOC7CLUKeaBSK6 MICROSCOPIC DESCRIPTION (test code = w9yebFFwJIXqjNR6SpGpRXKob8ycn7 BsdHBncGFy 3371) DTaagUDhknLnou08gOP5nU23CC9bRVZgIeH9SMDx enK4Nog6QGJmLYYsrWKiQ660h4myu6apjiZrzMN3 pNbjRFEcRYMwDAhjRJQvNuZxTMIdVn1pyXGrESPq cn0= [facility] [id number] 18:09:00 Test Item Value Reference Range Interpretation Comments Case Report (test code Surgical Pathology = 104) Report Case: [id number] Authorizing Provider: Mic Ferrer MD Collected: 07/22/2020 09:13 AM Ordering Location: [facility] Received: 07/22/2020 10:56 AM PERIOPERATIVE SERVICES Pathologist: Timur Ray MD Specimen: Plaque, left carotid plaque DIAGNOSIS (test code = i3vncKZdTITob0ejMUYvdBF 3220) uZzEwMzNcZnRuYmpcdWMxIH tccnRmMVxlcGljOTIwMFxhb dFqLBRuzXYlV0AsixafGIav UZ1jPB8exVxckCNevYElTSG bDcOic4qbo331lGNzl7bgMO QZxudilTb9fZpdD00sd3P2X rshT26wmBWaXSpukFLgwevm czIwIEFSVEVSWSwgTEVGVCB DQVJPVElELCBFTkRBUlRFUk YJUV8OXKldqTPkIKGQIDPHE fgFJXPFGMHOV4PIIHYJE4PT KqBLRKZXJWTgOMXoag34TZR 6GbVih3C1SQQ0PPSqNUGav5 lcZGVmbGFuZzEwMzNcZnRuY wvsnYPjAHFiXdBup7vqa677 rIAea6rvOUCzNgK5nVHzEOF riYWzO604QIIoAIkbv8esa3 LqRKJkqPRkw6R0IKWIfbhpq Iv8bQbuX70ml8Y3XvcdU1al DDEgECPuK8PlEJ3rYRCiMvo 0GJX5KNM4WSJzHKPhN4JcQN 4zJCZyxJUkTXl5h0rucRlvR ROfGBP5f9fvLYvfnjXxDJ8n mb0kzNi6o5xsyrTfODBoTAQ etAMQRVJcS7RjnUzmPm4gxW y6wSabLledAGR1Jpx8WL7xh c67jyi8wIbkPVPomgphPtJ9 RUpqVKYolfjeKKm8QZyhKPN fqTZ1DATuoNLwO9HiEIDuGD 3ocjl0TWZ1DMaaFZXyJnZ4O EDgyMZqAOJdcPkxCPhjz502 OLI1VyQnMI8mA9Xpg6R0sU5 maXRcZGVmdGFiNzIwXGZvcm 3lwIQoJZaic3HlMQB7teZ2w TXfiHEaQXAmMzJ8MPcoPB0l dz18LLUjRLQ9yq3ihBDogBh kfpHhvPQkXSezL2YdMEPgq4 27QMTiN1RyYNCxq3V2wbUbF uDqAMHzkXE6mhE1MSAuIG1v egacm7haGUkvPFadLKUrsoC 2ouD1TNBtdHRzL8EbcC5aKK UyAS6kyeudd3snIKB4ROvdO DQaQIC4ObJtDUPoq5Jvcwn5 AgRuk5EruLKrZJrxG57tw10 2YDEldcJzW0fybYGevvdguW SltxcjYRzdnhA3WGFhYQnzh cmzBXRbMGqsX1bqAiTaWNAq kQrnMRwge9MoQNBaNELrIcL tyROgSVDjZfg8GMDbvWGdES OrLsDsK9bezkarArMTRUAgb 2xhW9kgjWFXtIKmO5AhHRtn ryWcMKazMFtuUMTfUBX1OR4 1JykyHUPtil45 CPT Code(s) (test code v7cowAQoYHOduQM0ElDuSSJ = 3354) zz8xni2ClmPOywCWzZIowkK GfrtCjlj36xGU3jG52SI9xK PNwKiC4JVDutxZ2Prh3YIUh LWIrbICwM640c5trh9bsewJ sgYT8sIxeGFTvOWRdCGqzKW EsBwKqJFmpJIE9APy7TyGdG HBhcn0= CLINICAL HISTORY (test t5dsqRHkYVDvfFX7PkPuILR code = 3356) ry5rvs8SnpHLqtOSvWImcmD DqvqGows94lOM8eL55KT9oE AKpNdO1KPNsygP1Nni7NXKo DJRfyQTvP419w6sbo5reuxN fpFD7zYfjBDCjCRPrQDtwHO ZzMjAgTGVmdCBjYXJvdGlkI US8WH9kv3leYJCgvt7= SPECIMEN SOURCE (test k1fluDGeKFZyeHM1JvBfYXY code = 3377) ue5tum5KajHMqjLYbRCxzdY VqfrQiog14uZP1uY42CH8yO DVuSwN0CTLxvmE1Nzt4NBIo GHVmkDOmQ007c5umt5rtcvV vdFL3mUswXDIdBVKzHPisGV ZzMjAgUGxhcXVlXHBhcn0= GROSS DESCRIPTION l0jqjAUsIEUutZGnJaXhCZS (test code = 3366) xPUGzo9luNLNqgTEqHhViAb NcZnRuYmpcdWMxXGRlZmYwe 4xnm298sHXgz9otRAYaJoZ1 pWQtBLCjdTUmD025n0shi3t idzCzuCM0ZSOmUUR8WJsbqd SjzhN7NTpubQRuWgL0VMdfy zEfHPjulgRkasKiGay1XCDm V546PLH3kQvrd1ugUVJ9YEY aYWNnMyJoHn7wwCNmW848SE TtGODKWZLvcHm7DIGfozWyu xSkrXJYt686M266q9fvQLCj rkXmfKiBgakwd8ncX613UDG hcGVydzEyMjQwXHBhcGVyaD G7EJMeYT5kjxcnVxHrHO6qo vezAhLqNJ4ijyg2LdLwSC9d cmdiNzIwXGhlYWRlcnkwXGZ dh8UwsvquDL2gY9Ekj0J4iN 9maXRcZGVmdGFiNzIwXGZvc a8uyPWrVXuus8QuMIP3ayX3 qAHnoTEjPNBmMN28Ngqlp4I mBtkeQXR4QLGdzcYzt8Sct2 htSlGgxhCnU7gaN0NkFDTgZ VTwGDNzPnPmpmQjf7Vjc9Mz lZRuePu2g0jpDFYvCHWwzKs md2lkFJR2TXZmR6E3mVOyl7 neMJvwKCLdzEH9pnzdEInbJ UBmmbM9ifzkUCzjXTJepZO4 yxqwFLkaDQLgTbK9ccgiRFv nSWWzZLB2SOebx589LZU7RQ xzYmtwYWdlXHBnbmNvbnRcc GduZGVjXHBsYWluXHBsYWlu XGYwXGZzMjRccWxccGxhaW5 kBzSeCfYeKSftXR1vOOMjE1 ypvCScUEDqNLKbN5paRjOrs G9fvGesWFexacWkNEMnM2Si ubJfKJzlTXRijd0tnGqvHFq hYmVsZWQgdGhlIHBhdGllbn OnsxTmJM2iXWMjS2Pix7Odc 24gbnVtYmVyIGFuZCAibGVm zJTvUWIckAwxWMBtEOE6YTD eqPZuJETgDzXaK83xoG4eeY HyD9HfABF0FFZwCVTdyTJiv lNxlALkYZDmyyO5RD6jyRSw wM79YCF6LxTxHQOqjJssQ8J hq4EzAw9fKXqkgBSzRSyvjG ZpZWQgcGxhcXVlLiAgUmVwc mUvSY43IDOdzwBvr5ReqGeo rpOhJTThZYG9Gp7gnGPfPGY ztoRTPCLsv8wsb4svdbvnOX HiCItcdYAvT1B9iJ1nTgtxS PNvfVIrSCMwaQWwZWZmD3Rc qWsquakxCZMaEYhGNNrYK5I QKVxwYXJ9 MICROSCOPIC f1foiXQwOMIwdRI8LvHbZSL DESCRIPTION (test code dz2mja7DrcKYnfBHgVWcjlA = 3371) JddaOefj00uRW4wX00RI6hI VCfEpM2XBJbflR3Aee0XGRz HAZaqAUmR140a4nhn1oevjN xkAE2bDycQSCtOMEjTYlrQA JiJzWdOMWyLj0tyMGgWFBcm n0= [facility] [id number] 18:09:00Surgical Pathology Report Case: [id number] Authorizing Provider: Mic Ferrer MD Collected: 07/22/2020 09:13 AM Ordering Location: [facility] Received: 07/22/2020 10:56 AM PERIOPERATIVE SERVICES Pathologist: Timur Ray MD Specimen: Plaque, left carotid plaque ARTERY, LEFT CAROTID, ENDARTERECTOMY:CALCIFIC ATHEROSCLEROTIC PLAQUE Signing Pathologist Direct Phone Line: [phone] signed by Timur Ray MD on 07/30/2020 at 6:09 [id number]; [id number] carotid stenosisPlaqueReceived in formalin labeled the patient's name, accession number and "left carotid plaque" is a 3.5 cm in length by 0.5 cm in diameter dillon-yellow tubular piece of focally calcified plaque. Welt Maker sections are submitted in A1 following decalcification.ISABELLA Holguin, HT (ASC P)[facility]formed[facility] Leuk[facility]Red [id number] 23:54:00 Test Item Value Reference Range Interpretation Comments CROSSMATCH (test code = 2264) COMPATIBLE Unit ABO (test code = O Pos 2244791) UNIT NUMBER (test code = [id number] 934-0) Status (test code = 6766689) [place]_TIMEINCHART Blood Bank Product (test code RED BLOOD CELLS = 2263) PRODUCT CODE (test code = S7302V36 933-2) [facility] [id number] 23:54:00 Test Item Value Reference Range Interpretation Comments CROSSMATCH (test code = 2264) COMPATIBLE Unit ABO (test code = O Pos 8881498) UNIT NUMBER (test code = [id number] 934-0) Status (test code = 7063831) TX_TIMEINCHART Blood Bank Product (test code RED BLOOD CELLS = 2263) PRODUCT CODE (test code = W5746J92 933-2) [facility] 12 [id number] 17:54:17Interface, External Ris In - 07/23/2020 5:54 PM CSTVentricular Rate 107 BPMAtrial Rate 107 BPMP-R Interval 146 msQRS Duration 86 msQ-T Interval 328 msQTC Calculation(Bazett) 437 msP [place] 66 degreesR [place] 23 degreesT [place] 34 degreesSinus tachycardiaOtherwise normal ECGWhen compared with ECG of 21-JUL-2020 16:27,T wave amplitude has decreased in Lateral leadsQT has shortenedConfirmed by MD SHIVANI, MATTY ([id number]) on 07/23/2020 5:54:13 [facility]-Glucose meter 2020-07-23 14:42:00 Test Item Value Reference Range Interpretation Comments POC-Glucose Meter (test 131 mg/dL 70-110 H : TE STED AT [facility] code = 1538) [address] [place], [address]: Medical Sales Representative/Techni tigre ID = [id number] for Marcell Tripp Lab Interpretation (test Abnormal code = 78181-7) [facility]-Glucose [id number] 14:42:00 Test Item Value Reference Range Interpretation Comments POC-Glucose Meter (test 131 mg/dL 70-110 H : TE STED AT [facility] code = 1538) [address] [place], [address]: Medical Sales Representative/Techni tigre ID = [id number] for Marcell Tripp Lab Interpretation (test Abnormal code = 39006-6) [facility] [id number] 14:42:00 Test Item Value Reference Range Interpretation Comments POC-GLUCOSE METER 131 mg/dL 70-110 H : TESTED A T [facility] 6720 (BEAKER) (test code = FLORIDALMA Schmitt [facility], 1538) [address]: Medical Sales Representative/Techni tigre ID = [id number] for Leslie Bowman Basic Metabolic [id number] 07:11:00 Test Item Value Reference Range Interpretation Comments Sodium (test code = 142 meq/L 184-597 1213-2) Potassium (test code = 3.7 meq/L 3.5-5.1 2823-3) Chloride (test code = 104 meq/L 98-107 2075-0) CO2 (test code = 31 meq/L 22-29 H 2028-9) BUN (test code = 18 mg/dL 7-21 3094-0) Creatinine (test code 0.74 mg/dL 0.57-1.25 = 2160-0) Glucose (test code = 116 mg/dL 70-105 H 2345-7) Calcium (test code = 8.2 mg/dL 8.4-10.2 L 31174-7) EGFR (test code = 77 mL/min/1.73 [place] [address]-2) NOT ACCURATE CREATININE CLEARANCE IN PREDICTING GLOMERULAR FILTRATION RATE . ESTIMATED GFR I S NOT APPLICABLE FOR DIALYSIS PATIENTS. STAR (test code = STAR) Medical Sales Representative ID - EDASI Lab Interpretation Abnormal (test code = 16311-3) [facility] 07:11:00 Test Item Value Reference Range Interpretation Comments Magnesium (test code = 1.9 mg/dL 1.6-2.6 18670-6) STAR (test code = STAR) Medical Sales Representative ID - EDASI Lab Interpretation (test Normal code = 87412-8) [facility] 07:11:00 Test Item Value Reference Range Interpretation Comments Phosphorus (test code = 2.3 mg/dL 2.3-4.7 2777-1) TSAR (test code = STAR) Medical Sales Representative ID - EDASI Lab Interpretation (test Normal code = 89587-3) [facility]abolic [id number] 07:11:00 Test Item Value Reference Range Interpretation Comments Sodium (test code = 142 meq/L 781-735 2635-2) Potassium (test code = 3.7 meq/L 3.5-5.1 2823-3) Chloride (test code = 104 meq/L 98-107 2075-0) CO2 (test code = 31 meq/L 22-29 H 2028-9) BUN (test code = 18 mg/dL 7-21 3094-0) Creatinine (test code 0.74 mg/dL 0.57-1.25 = 2160-0) Glucose (test code = 116 mg/dL 70-105 H 2345-7) Calcium (test code = 8.2 mg/dL 8.4-10.2 L 85108-3) EGFR (test code = 77 mL/min/1.73 sq [place] [address]-5) NOT ACCURATE CREATININE CLEARANCE IN PREDICTING GLOMERULAR FILTRATION RATE . ESTIMATED GFR I S NOT APPLICABLE FOR DIALYSIS PATIENTS. STAR (test code = STAR) Medical Sales Representative ID - EDASI Lab Interpretation Abnormal (test code = 20688-0) [facility]21-[facility] 07:11:00 Test Item Value Reference Range Interpretation Comments Magnesium (test code = 1.9 mg/dL 1.6-2.6 17708-6) STAR (test code = STAR) Medical Sales Representative ID - EDASI Lab Interpretation (test Normal code = 59864-2) [facility] 07:11:00 Test Item Value Reference Range Interpretation Comments Phosphorus (test code = 2.3 mg/dL 2.3-4.7 2777-1) STAR (test code = STAR) Medical Sales Representative ID - EDASI Lab Interpretation (test Normal code = 12022-5) [facility]BASIC METABOLIC [id number] 07:11:00 Test Item Value Reference Range Interpretation [...] S NOT APPLICABLE FOR DIALYSIS PATIEN TS. Medical Sales Representative ID - [id number] 07:11:00 Test Item Value Reference Range Interpretation Comments MAGNESIUM (BEAKER) (test code = 1.9 mg/dL 1.6-2.6 627) Medical Sales Representative ID - [id number] 07:11:00 Test Item Value Reference Range Interpretation Comments PHOSPHORUS (BEAKER) (test code = 2.3 mg/dL 2.3-4.7 604) Medical Sales Representative ID - EDASICBC with platelet count + automated [id number] 06:17:00 Test Item Value Reference Range Interpretation Comments WBC (test code = 6690-2) 10.6 See_Comment H [A utomated message] The system [employer] generated this result transmitted ref erence range: 3.5 - 10 .5 K/L. The refe rence range was not u sed to interpret this result as normal/abnor mal. RBC (test code = 789-8) 2.71 See_Comment L [Au tomated message] The system [employer] generated this result transmitted ref erence range: 3.93 - 5 .22 M/L. The refe rence range was not u sed to interpret this result as normal/abnor mal. MCHC (test code = 786-4) 31.7 See_Comment L [A utomated message] The system [employer] generated this result transmitted ref erence range: [...] See_Comment [Aut omated message] 777-3) The system [employer] generated this result transmitted ref erence range: 150 - 45 0 K/CU MM. The referen ce range was not u sed to interpret this result as normal/abnor mal. MPV (test code = 10.1 fL 9.4-12.3 87688-3) nRBC (test code = 413) 0 See_Comment [Aut omated message] The system [employer] generated this result transmitted ref erence range: [...] H [Aut omated message] 670) The system [employer] generated this result transmitted ref erence range: 1.56 - 6 .13 K/L. The refe rence range was not u sed to interpret this result as normal/abnor mal. # Lymphs (test code = 1.56 See_Comment [Auto mated message] 414) The system [employer] generated this result transmitted ref erence range: 1.18 - 3 .74 K/L. The refe rence range was not u sed to interpret this result as normal/abnor mal. # Monos (test code = 0.96 See_Comment H [Autom ated message] 415) The system [employer] generated this result transmitted ref erence range: 0.24 - 0 .36 K/L. The refe rence range was not u sed to interpret this result as normal/abnor mal. # Eos (test code = 416) 0.02 See_Comment L [Au tomated message] The system [employer] generated this result transmitted ref erence range: 0.04 - 0 .36 K/L. The refe rence range was not u sed to interpret this result as normal/abnor mal. # Baso (test code = 417) 0.04 See_Comment [A utomated message] The system [employer] generated this result transmitted ref erence range: 0.01 - 0 .08 K/L. The refe rence range was not u sed to interpret this result as normal/abnor mal. Immature 1 % 0-1 Granulocytes-Relative (test code = 2801) Lab Interpretation (test Abnormal code = 87320-2) [facility] with platelet count + automated [id number] 06:17:00 Test Item Value Reference Range Interpretation Comments WBC (test code = 6690-2) 10.6 See_Comment H [A utomated message] The system [employer] generated this result transmitted ref erence range: 3.5 - 10 .5 K/L. The refe rence range was not u sed to interpret this result as normal/abnor mal. RBC (test code = 789-8) 2.71 See_Comment L [Au tomated message] The system [employer] generated this result transmitted ref erence range: 3.93 - 5 .22 M/L. The refe rence range was not u sed to interpret this result as normal/abnor mal. MCHC (test code = 786-4) 31.7 See_Comment L [A utomated message] The system [employer] generated this result transmitted ref erence range: [...] See_Comment [Aut omated message] 777-3) The system [employer] generated this result transmitted ref erence range: 150 - 45 0 K/CU MM. The referen ce range was not u sed to interpret this result as normal/abnor mal. MPV (test code = 10.1 fL 9.4-12.3 99279-4) nRBC (test code = 413) 0 See_Comment [Aut omated message] The system [employer] generated this result transmitted ref erence range: [...] H [Aut omated message] 670) The system [employer] generated this result transmitted ref erence range: 1.56 - 6 .13 K/L. The refe rence range was not u sed to interpret this result as normal/abnor mal. # Lymphs (test code = 1.56 See_Comment [Auto mated message] 414) The system [employer] generated this result transmitted ref erence range: 1.18 - 3 .74 K/L. The refe rence range was not u sed to interpret this result as normal/abnor mal. # Monos (test code = 0.96 See_Comment H [Autom ated message] 415) The system [employer] generated this result transmitted ref erence range: 0.24 - 0 .36 K/L. The refe rence range was not u sed to interpret this result as normal/abnor mal. # Eos (test code = 416) 0.02 See_Comment L [Au tomated message] The system [employer] generated this result transmitted ref erence range: 0.04 - 0 .36 K/L. The refe rence range was not u sed to interpret this result as normal/abnor mal. # Baso (test code = 417) 0.04 See_Comment [A utomated message] The system [employer] generated this result transmitted ref erence range: 0.01 - 0 .08 K/L. The refe rence range was not u sed to interpret this result as normal/abnor mal. Immature 1 % 0-1 Granulocytes-Relative (test code = 2801) Lab Interpretation (test Abnormal code = 06099-2) [facility] W/PLT COUNT & AUTO [id number] 06:17:00 Test Item Value Reference Range Interpretation [...] PERCENT (BEAKER) (test code = 2801) POCT-GLUCOSE [id number] 05:16:00 Test Item Value Reference Range Interpretation Comments POC-GLUCOSE METER 122 mg/dL 70-110 H : TESTED A T [facility] [address] ([facility] (test code = [facility], 1538) [address]: Medical Sales Representative/Techni tigre ID = [id number] for VIVIENNE LOPEZ SE [id number] 00:56:00 Test Item Value Reference Range Interpretation Comments POC-Glucose (test code = 124 mg/dL 70-110 H : T ESTED AT [facility] 1855) [address] [facility], [address]: Medical Sales Representative/Techni tigre ID = [id number] for MEREDITH BONNERGER ALD Lab Interpretation (test Abnormal code = 62713-8) [facility]-[id number] 00:56:00 Test Item Value Reference Range Interpretation Comments POC-Glucose (test code = 124 mg/dL 70-110 H : T ESTED AT [facility] 1855) [address] [facility], [address]: Medical Sales Representative/Techni tigre ID = [id number] for HA, FITZGER ALD Lab Interpretation (test Abnormal code = 08196-0) [facility]-[id number] 00:56:00 Test Item Value Reference Range Interpretation Comments POC-GLUCOSE 124 mg/dL 70-110 H : TESTED AT [facility] 67[address] (BEAKER) (test code [facility], = 1855) [address]: Medical Sales Representative/Techni tigre ID = [id number] for LESA YBARRA POC-Blood gases, [id number] 00:55:00 Test Item Value Reference Range Interpretation Comments Temp. Celsius-POC (test 97.4 code = 1834) FIO2-POC (test code = 44 1835) pH, Venous-POC (test 7.315 7.320-7.420 L : TESTE D AT [facility] code = 1842) [address] [facility], [address] PCO2, Venous-POC (test 55.6 See_Comment H If [...] mated message] code = 1844) The system [employer] generated this result transmit rory reference range : 25.0 - 40.0 mm Hg. The reference r zo was not used to interpret this result as normal/abnormal . SO2, Venous-POC (test 56.0 % 40-70 code = 1845) HCO3, Venous-POC (test 28.5 meq/L 21-29 code = 1846) BE, Venous-POC (test 2.0 meq/L -2-3 : code = 1847) Medical Sales Representative/Techni tigre ID = [id number] for ZULLY BONNER Lab Interpretation Abnormal (test code = 97915-9) [facility]-Calcium [id number] 00:55:00 Test Item Value Reference Range Interpretation Comments POC-Calcium Ionized 1.24 mmol/L 1.12-1.27 : TESTED AT [facility] (test code = 1536) [address] [facility] [place], [address]: Medical Sales Representative/Techni tigre ID = [id number] for ZULLY BONNER Lab Interpretation Normal (test code = 96482-1) [facility]-Imyickclu6707-15-15 00:55:00 Test Item Value Reference Range Interpretation Comments POC-Potassium (test code 3.9 meq/L 3.6-5.5 : T RAD AT [facility] = 1540) [address] [facility], [address]: Medical Sales Representative/Techni tigre ID = [id number] for BAYUSMAN LUONGZGER ALD Lab Interpretation (test Normal code = 55320-4) [facility]-[id number] 00:55:00 Test Item Value Reference Range Interpretation Comments POC-Sodium (test code = 141 meq/L 135-148 : TE STED AT [facility] 1542) [address] [facility], [address]: Medical Sales Representative/Techni tigre ID = [id number] for BAYANGUSMANZGER ALD Lab Interpretation (test Normal code = 07500-8) [facility]-[id number] 00:55:00 Test Item Value Reference Range Interpretation Comments POC-Hemoglobin (test code 8.8 g/dL 12-15 L : TESTED AT [facility] = 1856) [address] [facility], [address]: Medical Sales Representative/Techni tigre ID = [id number] for BAYANGUSMANZGER ALD Lab Interpretation (test Abnormal code = 77335-5) [facility]-[id number] 00:55:00 Test Item Value Reference Range Interpretation Comments POC-Hematocrit (test code 26 % 36-45 L : = 1857) Medical Sales Representative/Techni tigre ID = [id number] for BAYUSMAN LUONGZGER ALD Lab Interpretation (test Abnormal code = 42219-0) [facility]-Blood gases, [id number] 00:55:00 Test Item Value Reference Range Interpretation Comments Temp. Celsius-POC (test 97.4 code = 1834) FIO2-POC (test code = 44 1835) pH, Venous-POC (test 7.315 7.320-7.420 L : TESTE D AT [facility] code = 1842) [address] [facility], [address] PCO2, Venous-POC (test 55.6 See_Comment H If [...] mated message] code = 1844) The system [employer] generated this result transmit rory reference range : 25.0 - 40.0 mm Hg. The reference r zo was not used to interpret this result as normal/abnormal . SO2, Venous-POC (test 56.0 % 40.0-70.0 code = 1845) HCO3, Venous-POC (test 28.5 meq/L 21.0-29.0 code = 1846) BE, Venous-POC (test 2.0 meq/L -2.0-3.0 : code = 1847) Medical Sales Representative/Techni tigre ID = [id number] for BAYANG, FITZGER ALD Lab Interpretation Abnormal (test code = 85781-6) [facility]-Calcium [id number] 00:55:00 Test Item Value Reference Range Interpretation Comments POC-Calcium Ionized 1.24 mmol/L 1.12-1.27 : TESTED AT [facility] (test code = 1536) [address] [facility], [address]: Medical Sales Representative/Techni tigre ID = [id number] for BAYANG, FITZGER ALD Lab Interpretation Normal (test code = 70821-4) [facility]-Ijbzqeuge1663-21-83 00:55:00 Test Item Value Reference Range Interpretation Comments POC-Potassium (test code 3.9 meq/L 3.6-5.5 : T ESTED AT [facility] = 1540) [address] [place] [address] [place], [address]: Medical Sales Representative/Techni tigre ID = [id number] for BAYANG, FITZGER ALD Lab Interpretation (test Normal code = 64002-0) [facility]-[id number] 00:55:00 Test Item Value Reference Range Interpretation Comments POC-Sodium (test code = 141 meq/L 135-148 : TE STED AT [facility] 1542) [address] [facility], [address]: Medical Sales Representative/Techni tigre ID = [id number] for BAYANG, FITZGER ALD Lab Interpretation (test Normal code = 46357-1) [facility]-[id number] 00:55:00 Test Item Value Reference Range Interpretation Comments POC-Hemoglobin (test code 8.8 g/dL 12.0-15.0 L : TESTED AT [facility] = 1856) [address] [facility] [place], [address]: Medical Sales Representative/Techni tigre ID = [id number] for ZULLY BONNER ALD Lab Interpretation (test Abnormal code = 07924-0) [facility]-[id number] 00:55:00 Test Item Value Reference Range Interpretation Comments POC-Hematocrit (test code 26 % 36-45 L : = 1857) Medical Sales Representative/Techni tigre ID = [id number] for ZULLY BONNER ALD Lab Interpretation (test Abnormal code = 11397-2) [facility] HospitalPOP[facility]-BLOOD GASES, [id number] 00:55:00 Test Item Value Reference Range Interpretation Comments TEMP, CELSIUS-POC 97.4 (BEAKER) (test code = 1834) FIO2-POC (BEAKER) 44 (test code = 1835) PH, VENOUS-POC 7.315 7.320-7.420 L : TESTED AT [facility] 6720 (BEAKER) (test code [facility], = 1842) [address] PCO2, VENOUS-POC 55.6 mm Hg 41.0-51.0 H If pO2 is > 180, pCO2 may (BEAKER) (test code be posit ively biased = 1843) PO2, VENOUS-POC 31.0 mm Hg 25.0-40.0 (BEAKER) (test code = 1844) SO2, VENOUS-POC 56.0 % 40.0-70.0 (BEAKER) (test code = 1845) HCO3, VENOUS-POC 28.5 meq/L 21.0-29.0 (BEAKER) (test code = 1846) BASE EXCESS, 2.0 meq/L -2.0-3.0 : Medical Sales Representative/Tech enaian ID VENOUS-POC (BEAKER) = [id number] for HA, (test code = 1847) DANO D TPJI-[id number] 00:55:00 Test Item Value Reference Range Interpretation Comments POC-SODIUM (BEAKER) 141 meq/L 135-148 : TESTED AT [facility] 6720 (test code = 1542) [place], [address]: Medical Sales Representative/Techni tigre ID = [id number] for BLAISETemo LESA RICO KQOB-[id number] 00:55:00 Test Item Value Reference Range Interpretation Comments POC-POTASSIUM 3.9 meq/L 3.6-5.5 : TESTED AT [place] [address] ([facility] (test code [facility], = 1540) [address]: Medical Sales Representative/Techni tigre ID = [id number] for LESA YBARRA QBQT-[id number] 00:55:00 Test Item Value Reference Range Interpretation Comments POC-HEMOGLOBIN 8.8 g/dL 12.0-15.0 L : TESTED AT [place] [address] ([facility] (test code [facility], = 1856) [address]: Medical Sales Representative/Techni tigre ID = [id number] for LESA YBARRA USHI-MJDIUORNZF5798-29-15 00:55:00 Test Item Value Reference Range Interpretation Comments POC-HEMATOCRIT 26 % 36-45 L : Medical Sales Representative/Te chnician ID = ([facility] (test code = 438288 for HA, 1857) [place] POCT-CALCIUM [id number] 00:55:00 Test Item Value Reference Range Interpretation Comments POC-CALCIUM IONIZED 1.24 mmol/L 1.12-1.27 : TESTED AT [place] [address] ([facility] (test code [facility], = 1536) [address]: Medical Sales Representative/Techni tigre ID = [id number] for MEREDITH ARIZMENDIGERALD RAD, CHEST, 1 VIEW, NON [id number] 00:55:00Reason for exam:- >desaturationShould this be performed at the bedside?->Yes [facility] 1950 Sex: FFINAL REPORT [...] 12:55 AMXR chest 1 view portable / [id number] 00:55:00Interface, External Ris In - 07/23/2020 12:57 [...] Signed: José Dickens Verified Date/Time: 07/23/2020 00:55:19 [facility] [id number] 00:51:00 Test Item Value Reference Range Interpretation Comments POC-GLUCOSE METER 127 mg/dL 70-110 H : TESTED A T [facility] 6720 (JOH[place]) (test code = [place], [address]) [address]: Medical Sales Representative/Techni tigre ID = [id number] for VIVIENNE LOPEZ SE BASIC METABOLIC [id number] 15:53:00 Test Item Value Reference Range Interpretation [...] S NOT APPLICABLE FOR DIALYSIS PATIEN TS. Medical Sales Representative ID - SVSQMLNOICGYSQIG6468-03-03 15:44:00 Test Item Value Reference Range Interpretation Comments MAGNESIUM (BEAKER) (test code = 2.0 mg/dL 1.6-2.6 627) Medical Sales Representative ID - OLEUFDLRYXIADVQCU6668-01-50 15:44:00 Test Item Value Reference Range Interpretation Comments PHOSPHORUS (BEAKER) (test code = 2.4 mg/dL 2.3-4.7 604) Medical Sales Representative ID - AASHAILAIDLactic Acid, Umdexowr9702-52-94 15:34:00 Test Item Value Reference Range Interpretation Comments Lactate, Art (test 0.8 mmol/L 0.5-2.2 Specimen code = 2874) moderately hemolyzed STAR (test code = STAR) Medical Sales Representative ID - AASHAILAID Lab Interpretation Normal (test code = 81055-3) [facility], [id number] 15:34:00 Test Item Value Reference Range Interpretation Comments Lactate, Art (test 0.8 mmol/L 0.5-2.2 Specimen code = 2874) moderately hemolyzed STAR (test code = STAR) Medical Sales Representative ID - AAHAMID Lab Interpretation Normal (test code = 20384-4) [facility] CenterLACTIC ACID, [id number] 15:34:00 Test Item Value Reference Range Interpretation Comments LACTATE BLOOD 0.8 mmol/L 0.5-2.2 Specimen moder ately ARTERIAL (2) (BEAKER) hemoly zed (test code = 2874) Medical Sales Representative ID - AAHAMIDCBC W/PLT COUNT & AUTO [id number] 15:11:00 Test Item Value Reference Range Interpretation [...] (BEAKER) (test code = 2801) Blood gas, [id number] 15:07:00 Test Item Value Reference Range Interpretation Comments pH, Arterial (test code 7.35 7.35-7.45 = 2744-1) pCO2, Arterial (test 51 See_Comment H [Autom ated message] code = 2019-02) The system [employer] generated this result transmit rory reference range : 35 - 45 mm Hg. The reference range was not used to interpret this result as normal/abnormal . pO2, Arterial (test 112 See_Comment H [Automa rory message] code = 2703-7) The system [employer] generated this result transmit rory reference range [...] 36 Lab Interpretation Abnormal (test code = 32277-0) [facility] HospitalBlood [facility], [id number] 15:07:00 Test Item Value Reference Range Interpretation Comments pH, Arterial (test code 7.35 7.35-7.45 = 2744-1) pCO2, Arterial (test 51 See_Comment H [Autom ated message] code = 2018-) The system [facility] generated this result transmit rory reference range : 35 - 45 mm Hg. The reference range was not used to interpret this result as normal/abnormal . pO2, Arterial (test 112 See_Comment H [Automa rory message] code = 2703-7) The system [facility] generated this result transmit rory reference range [...] 36 Lab Interpretation Abnormal (test code = 83739-9) [facility] HospitalBLOOD GAS, [id number] 15:07:00 Test Item Value Reference Range Interpretation [...] 1819) 36.0 RAD, CHEST, 1 VIEW, NON [id number] 13:46:00Reason for exam:->s/p carotidShould this be performed at the bedside?->Yes [facility] 1950 Sex: FFINAL REPORT [...] MDReport Verified Date/Time: 07/22/2020 13:46:15 Reading Location: [facility] Radiology Reading Room Calcium, [id number] 11:34:00 Test Item Value Reference Range Interpretation Comments Calcium, Ion (test code = 1994-3) 1.09 mmol/L 1.12-1.27 L pH, Blood (test code = 78360-5) 7.33 Lab Interpretation (test code = Abnormal 19865-5) [facility] HospitalHGB/HCT (H&H)-Stat [id number] 11:34:00 Test Item Value Reference Range Interpretation Comments Hemoglobin (test code = 8.4 See_Comment L [Au tomated message] 786-4) The system [employer] generated this result transmitted ref erence range: 12.0 - 1 5.0 GM/DL. The refe rence range was not u sed to interpret this result as normal/abnor mal. Hematocrit (test code = 25.0 % 36-45 L 4544-3) Lab Interpretation (test Abnormal code = 66971-9) [facility] HospitalGlucose-Stat [id number] 11:34:00 Test Item Value Reference Range Interpretation Comments Glucose (test code = 2345-7) 122 mg/dL 70-110 H Lab Interpretation (test code = Abnormal 54119-9) [facility] HospitalPotassium-Stat Dup3616-06-15 11:34:00 Test Item Value Reference Range Interpretation Comments Potassium (test code = 2823-3) 3.3 meq/L 3.6-5.5 L Lab Interpretation (test code = Abnormal 62152-6) [facility] HospitalCalcium, [id number] 11:34:00 Test Item Value Reference Range Interpretation Comments Calcium, Ion (test code = 1994-3) 1.09 mmol/L 1.12-1.27 L pH, Blood (test code = 64261-9) 7.33 Lab Interpretation (test code = Abnormal 64068-4) [facility] HospitalHGB/HCT (H&H)-Stat [id number] 11:34:00 Test Item Value Reference Range Interpretation Comments Hemoglobin (test code = 8.4 See_Comment L [Au tomated message] 786-4) The system [employer] generated this result transmitted ref erence range: 12.0 - 1 5.0 GM/DL. The refe rence range was not u sed to interpret this result as normal/abnor mal. Hematocrit (test code = 25.0 % 36.0-45.0 L 4544-3) Lab Interpretation (test Abnormal code = 74030-2) [facility] HospitalGlucose-Stat [id number] 11:34:00 Test Item Value Reference Range Interpretation Comments Glucose (test code = 2345-7) 122 mg/dL 70-110 H Lab Interpretation (test code = Abnormal 24804-7) [facility] HospitalPotassium-Stat [id number] 11:34:00 Test Item Value Reference Range Interpretation Comments Potassium (test code = 2823-3) 3.3 meq/L 3.6-5.5 L Lab Interpretation (test code = Abnormal 32679-5) [facility] HospitalCALCIUM, [id number] 11:34:00 Test Item Value Reference Range Interpretation Comments CALCIUM IONIZED (BEAKER) (test 1.09 mmol/L 1.12-1.27 L code = 698) PH, BLOOD (BEAKER) (test code = 7.33 1810) POTASSIUM-STAT [id number] 11:34:00 Test Item Value Reference Range Interpretation Comments POTASSIUM (BEAKER) (test code = 3.3 meq/L 3.6-5.5 L 379) GLUCOSE-STAT [id number] 11:34:00 Test Item Value Reference Range Interpretation Comments GLUCOSE RANDOM (BEAKER) (test code 122 mg/dL 70-110 H = 652) HGB/HCT (H&H) - STAT [id number] 11:34:00 Test Item Value Reference Range Interpretation Comments HEMOGLOBIN (BEAKER) (test code = 8.4 GM/DL 12.0-15.0 L 410) HEMATOCRIT (BEAKER) (test code = 25.0 % 36.0-45.0 L 411) Transesophageal [id number] 10:59:28Ejection FractionSLEH ECHO HEARTLAB MKCKESSON CPACSInterface, External Ris In - 07/22/2020 10:59 AM C STTransesophageal Echocardiography Report (FRANCY) Demographics Patient Name ERICA JASON Date of Study 07/19/2020 [place] Gender Female Visit Number [id number] Race Unknown Room Number SCPR Number Date of 1950 Referring Physician Mic Ferrer MD Age 70 year(s) 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 Dry 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 Divine Hunter [facility] Interpreting Jas Ho Physician Procedure Type of [...] LVOT CO: 5.89 l/min LVOT CI: 2.89 l/min/m^2[facility] Transesophageal upns1954-28-45 10:59:28Ejection FractionSLEH ECHO HEARTLAB MKCKESSON CPACentinela [facility] CampusARS-CoV2/RT-PCR (Asymptomatic ONLY) 2020-07-22 07:09:00 Test Item Value Reference Range Interpretation Comments SARS-COV2/RT-PCR Negative Not Detected, (test code = Negative, See 89501-4) external report for linked test SARS-COV-2 [facility] PATRICIO PERFORMING LAB (test code = 30102-8) STAR (test code = Negative result for [...] the Act. Testing was performed using the [employer] [facility] SARS-CoV-2 assay. Fact Sheet for Healthcare Providers:https://www.Vontoosincere.[employer]/elder/RT_SA OF-HbR-7_CAU_Dvcb_Ostzc_ 51-793240.pdf Fact Sheet for Healthcare Patients:https://www.PayDragon.[employer]/elder/RT_SAR A-RbU-7_Rxrehtz_Uppf_Vbo et_EN_51-692010S5.pdf Performing Laboratory:[facility] [place] [address] [facility] (Asymptomatic ONLY)2020-07-22 07:09:00 Test Item Value Reference Range Interpretation Comments SARS-COV2/RT-PCR Negative Not Detected, (test code = Negative, See 13666-9) external report for linked test SARS-COV-2 [facility] PATRICIO PERFORMING LAB (test code = 39931-6) STAR (test code = Negative result for [...] the Act. Testing was performed using the [employer] [facility] SARS-CoV-2 assay. Fact Sheet for Healthcare Providers:https://www.faby miller/elder/RT_SA EM-NdL-7_ZCO_Vexw_Kipbh_ 51-029551.pdf Fact Sheet for Healthcare Patients:https://www.susie israel/elder/RT_SAR A-CwY-9_Wuyuqwf_Xfzp_Jxj et_EN_51-732020I6.pdf Performing Laboratory:[facility] [place] [address] [facility] AngelesARS-COV2/RT-PCR ([facility])2020-07-22 07:09:00 Test Item Value Reference Range Interpretation Comments SARS-COV2/RT-PCR (test Negative Not Detected, Negative, code = 1671272) See external report for linked test SARS-COV-2 PERFORMING LAB [facility] PATRICIO (test code = 5954576) Negative result for this test determines that [...] the Marie SARS-CoV-2 assay.Fact Sheet for Healthcare Providers:https://www.Geekatoo.marie/elder/ YQ_MBMI-KhG-9_KIO_Elel_Flxrq_79-518614.pdfFact Sheet for Healthcare Patients:https://www.Geekatoo.[employer] tere/elder/VB_ZYGH-PzF-3_Talpfqg_Xrhn_Vompp_AU_54-035279C8.pdfPerforming Laboratory:[address] [address]XIX W/PLT COUNT & AUTO [id number] 05:42:00 Test Item Value Reference Range Interpretation [...] (BEAKER) (test code = 2801) BASIC METABOLIC [id number] 05:35:00 Test Item Value Reference Range Interpretation [...] S NOT APPLICABLE FOR DIALYSIS PATIEN TS. Medical Sales Representative ID - JOSE [id number] 05:35:00 Test Item Value Reference Range Interpretation Comments MAGNESIUM (BEAKER) (test code = 2.2 mg/dL 1.6-2.6 627) Medical Sales Representative ID - JOSE [id number] 05:35:00 Test Item Value Reference Range Interpretation Comments PHOSPHORUS (BEAKER) (test code = 2.5 mg/dL 2.3-4.7 604) Medical Sales Representative ID - PIAYA LPOCT-GLUCOSE [id number] 05:20:00 Test Item Value Reference Range Interpretation Comments POC-GLUCOSE METER 122 mg/dL 70-110 H : [facility] (test code = [facility], 1538) [address]: Medical Sales Representative/Techni tigre ID = [id number] for CHEVY ROUSSEAU (V)BRIDGER POCT-GLUCOSE [id number] 21:05:00 Test Item Value Reference Range Interpretation Comments POC-GLUCOSE METER 150 mg/dL 70-110 H : [facility] [facility] (test code = [facility], 1538) [address]: Medical Sales Representative/Techni tigre ID = [id number] for YONI BENNETT POCT-GLUCOSE [id number] 16:43:00 Test Item Value Reference Range Interpretation Comments POC-GLUCOSE METER 156 mg/dL 70-110 H : TESTED A T [facility] 6720 (BEAKER) (test code = [facility], 1538) [address]: Medical Sales Representative/Techni tigre ID = [id number] for ILYA FRIEDMAN [id number] 16:06:00 Test Item Value Reference Range Interpretation Comments PTT (test code = 32471-0) 30.3 See_Comment [ Automated message] The system [employer] generated this result transmitted ref erence range: 22.5 - 3 6.0 seconds. The re ference range was not u sed to interpret this result as normal/abnor mal. Lab Interpretation (test Normal code = 17380-8) [facility] HospitalaPTT2021-01-13 16:06:00 Test Item Value Reference Range Interpretation Comments PTT (test code = 21815-1) 30.3 See_Comment [ Automated message] The system [employer] generated this result transmitted ref erence range: 22.5 - 3 6.0 seconds. The re ference range was not u sed to interpret this result as normal/abnor mal. Lab Interpretation (test Normal code = 42044-4) [facility] HospitalAPTT2021-01-13 16:06:00 Test Item Value Reference Range Interpretation Comments PARTIAL THROMBOPLASTIN TIME 30.3 seconds 22.5-36.0 (BEAKER) (test code = 760) Prothrombin time/[id number] 16:05:00 Test Item Value Reference Interpretation Comments [...] valves. Lab Interpretation Normal (test code = 40436-3) [facility] HospitalProthrombin time/[id number] 16:05:00 Test Item Value Reference Interpretation Comments [...] valves. Lab Interpretation Normal (test code = 08303-0) [facility] HospitalPROTHROMBIN TIME/[id number] 16:05:00 Test Item Value Reference Range Interpretation [...] for patients wiht mechanical heart valves.BASIC METABOLIC [id number] 04:00:00 Test Item Value Reference Range Interpretation [...] S NOT APPLICABLE FOR DIALYSIS PATIEN TS. Medical Sales Representative ID - LIBIA [id number] 04:00:00 Test Item Value Reference Range Interpretation Comments MAGNESIUM (BEAKER) (test code = 1.9 mg/dL 1.6-2.6 627) Medical Sales Representative ID Pearl REZA [id number] 04:00:00 Test Item Value Reference Range Interpretation Comments PHOSPHORUS (BEAKER) (test code = 2.4 mg/dL 2.3-4.7 604) Medical Sales Representative THELMA REZA WCBC W/PLT COUNT & AUTO [id number] 03:54:00 Test Item Value Reference Range Interpretation [...] PERCENT (BEAKER) (test code = 2801) POCT-GLUCOSE [id number] 18:33:00 Test Item Value Reference Range Interpretation Comments POC-GLUCOSE METER 124 mg/dL 70-110 H : TESTED A T [facility] 6720 (BEAKER) (test code = SumZeroND Pixelle [facility], 1538) [address]: Medical Sales Representative/Techni tigre ID = [id number] for URBINAFROILANParker Schmitt LAURIE POCT-GLUCOSE [id number] 11:58:00 Test Item Value Reference Range Interpretation Comments POC-GLUCOSE METER 92 mg/dL 70-110 : TESTED A T [facility] 6720 (BEAKER) (test code = sezmi [facility], 1538) [address]: Medical Sales Representative/Techni tigre ID = [id number] for URBINAFROILANParker Schmitt LAURIE 2D Echo W/Doppler(CW/PW/Color)2020-07-20 09:54:32Ejection FractionSLE ECHO HEARTLAB MKCKESSON CPACSInterface, External Ris In - 07/20/2020 9:54 AM C STTransthoracic Echocardiography Report (TTE) Demographics Patient Name ERICA JASON Date of Study 07/19/2020 [place] Gender Female Visit Number [id number] Race Unknown Room Number 2C25 Number Date of 1950 Referring Physician Hayden Lewis Age 70 year(s) Fur Dry Cleaner Hand Tyshawn Arambula [facility] Interpreting Sheila Evans MD PhysicianFejavi Pascual MD Procedure Type of Study TTE [...] 22.73 mmHg Pulmonic Valve Estimated PASP: 32.73 mmHgBeverly Hospital2D Echo W/Doppler(CW/PW/Color)2020-07-20 09:54:32Ejection FractionSLEH ECHO HEARTLAB MKCKESSON [facility] ClearlakePOCT-GLUCOSE [id number] 07:06:00 Test Item Value Reference Range Interpretation Comments POC-GLUCOSE METER 87 mg/dL 70-110 : TESTED A T [facility] 6720 ([place]) (test code = [place], 1538) [address]: Medical Sales Representative/Techni tigre ID = [id number] for HEBERT QUINONEZ (NormanBerryJANELL BASIC METABOLIC [id number] 04:37:00 Test Item Value Reference Range Interpretation Comments SODIUM (FERNANDOAKER) 140 meq/L 136-145 (test code = 381) [...] S NOT APPLICABLE FOR DIALYSIS PATIEN TS. Medical Sales Representative ID - ALEKSEY [id number] 04:37:00 Test Item Value Reference Range Interpretation Comments MAGNESIUM (BEAKER) (test code = 1.6 mg/dL 1.6-2.6 627) Medical Sales Representative ID - ALEKSEY [id number] 04:37:00 Test Item Value Reference Range Interpretation Comments PHOSPHORUS (BEAKER) (test code = 4.0 mg/dL 2.3-4.7 604) Medical Sales Representative ID - ALEKSEY MCBC W/PLT COUNT & AUTO [id number] 03:55:00 Test Item Value Reference Range Interpretation [...] PERCENT (BEAKER) (test code = 2801) POCT-GLUCOSE [id number] 23:44:00 Test Item Value Reference Range Interpretation Comments POC-GLUCOSE METER 129 mg/dL 70-110 H : TESTED A T [facility] 6720 (BEAKER) (test code = [place], 1538) [address]: Medical Sales Representative/Techni tigre ID = [id number] for BRIDGER SURESH LACTIC ACID, [id number] 17:57:00 Test Item Value Reference Range Interpretation Comments LACTATE BLOOD 0.8 mmol/L 0.5-2.2 Specimen moder ately ARTERIAL (2) (BEAKER) hemoly zed (test code = 7398) Medical Sales Representative ID - DBBLOOD GAS, [id number] 17:43:00 Test Item Value Reference Range Interpretation [...] 1819) 36.0 Urinalysis w/Microscopic + Reflex to [id number] 16:52:00 Test Item Value Reference Range Interpretation Comments Color, UA (test code Yellow = 5778-6) Clarity, UA (test Clear code = 5767-9) Specific [place], UA 1.027 1.001-1.035 (test code = 5811-5) pH, UA (test code = 5.5 5.0-8.0 5803-2) Protein, UA (test 10 mg/dL Negative A code = 73481-7) Glucose, UA (test Negative Negative code = 365) Ketones, UA (test Trace Negative A code = 2514-8) Bilirubin, UA (test Negative Negative code = 08869-5) Blood, UA (test code Negative Negative = 03105-0) Nitrite, UA (test Negative Negative code = 5802-4) Leukocytes, UA (test Negative Negative code = 5799-2) Urobilinogen, UA 0.2 mg/dL 0.2-1 (test code = 44027-3) RBC, UA (test code = 2 See_Comment [Autom ated 34192-3) message] The system which generated this result [...] . Bacteria, UA (test Rare code = 75536-7) Mucus (test code = Rare 8247-9) Squam Epithel, UA 1 See_Comment [Automate d (test code = 31327-1) messag e] The system which generated this result transmit rory reference range : /HPF. The reference range was not used to interpret this result as normal/abnormal . Hyaline Casts, UA 12 See_Comment [Automate d (test code = 46032-3) messag e] The system which generated this result transmit rory reference range : /LPF. The reference range was not used to interpret this result as normal/abnormal . Crystals, Urine (test Rare code = 20542-2) Specimen Source (test code = 2795) STAR (test code = STAR) Medical Sales Representative ID - [auto]Medical Sales Representative ID - tech Lab Interpretation Abnormal (test code = 39397-2) [facility] Reflex to Culture 2020-07-19 16:52:00 Test Item Value Reference Range Interpretation Comments Color, UA (test code Yellow = 5778-6) Clarity, UA (test Clear code = 5767-9) Specific [place], UA 1.027 1.001-1.035 (test code = 5811-5) pH, UA (test code = 5.5 5.0-8.0 5803-2) Protein, UA (test 10 mg/dL Negative A code = 07065-9) Glucose, UA (test Negative Negative code = 365) Ketones, UA (test Trace Negative A code = 2514-8) Bilirubin, UA (test Negative Negative code = 82359-1) Blood, UA (test code Negative Negative = 97424-6) Nitrite, UA (test Negative Negative code = 5802-4) Leukocytes, UA (test Negative Negative code = 5799-2) Urobilinogen, UA 0.2 mg/dL 0.2-1.0 (test code = 49498-6) RBC, UA (test code = 2 See_Comment [Autom ated 80412-3) message] The system which generated this result [...] . Bacteria, UA (test Rare code = 90179-6) Mucus (test code = Rare 8247-9) Squam Epithel, UA 1 See_Comment [Automate d (test code = 55974-3) messag e] The system which generated this result transmit rory reference range : /HPF. The reference range was not used to interpret this result as normal/abnormal . Hyaline Casts, UA 12 See_Comment [Automate d (test code = 01222-3) messag e] The system which generated this result transmit rory reference range : /LPF. The reference range was not used to interpret this result as normal/abnormal . Crystals, Urine (test Rare code = 88853-5) Specimen Source (test code = 2795) STAR (test code = STAR) Medical Sales Representative ID - [auto]Medical Sales Representative ID - tech Lab Interpretation Abnormal (test code = 25705-7) [facility] [id number] 16:52:00 Test Item Value Reference Range Interpretation [...] = 1521) SOURCE(BEAKER) (test code = 2795) Medical Sales Representative ID - [auto]Medical Sales Representative ID - sujsAkeonwvu1684-88-67 16:39:00 Test Item Value Reference Range Interpretation Comments Cortisol, Total (test 85.0 ug/dL 3.7-19.4 H code = 2755) STAR (test code = STAR) Medical Sales Representative ID - DBOperator ID - DB Lab Interpretation (test Abnormal code = 76887-1) [place] [id number] 16:39:00 Test Item Value Reference Range Interpretation Comments Cortisol, Total (test 85.0 ug/dL 3.7-19.4 H code = 2755) STAR (test code = STAR) Medical Sales Representative ID - DBOperator ID - DB Lab Interpretation (test Abnormal code = 14621-0) [place] [id number] 16:39:00 Test Item Value Reference Range Interpretation Comments CORTISOL, TOTAL (BEAKER) (test 85.0 ug/dL 3.7-19.4 H code = 2755) Medical Sales Representative ID - DBOperator ID - DBTSH/Free T4 If [id number] 16:06:00 Test Item Value Reference Range Interpretation Comments TSH (test code = 0.749 See_Comment [Automated 10111-3) message] The system which generated this result transmit rory reference range : 0.350 - 4.940 uIU/mL. The reference range was not used to interpret this result as normal/abnormal . STAR (test code = STAR) Medical Sales Representative ID - DB Lab Interpretation Normal (test code = 32734-8) [facility] T4 If [id number] 16:06:00 Test Item Value Reference Range Interpretation Comments TSH (test code = 0.749 See_Comment [Automated 82496-6) message] The system which generated this result transmit rory reference range : 0.350 - 4.940 uIU/mL. The reference range was not used to interpret this result as normal/abnormal . STAR (test code = STAR) Medical Sales Representative ID - DB Lab Interpretation Normal (test code = 63635-3) [facility] T[facility] IF [id number] 16:06:00 Test Item Value Reference Range Interpretation Comments THYROID STIMULATING HORMONE 0.749 uIU/mL 0.350-4.940 (BEAKER) (test code = 772) Medical Sales Representative ID - DBComprehensive metabolic [id number] 15:34:00 Test Item Value Reference Range Interpretation [...] 3.2 g/dL 3.5-5 L Specime n slightly 98855-2) hemolyzed Alkaline Phosphatase 43 U/L 40-150 (test code = 6768-6) Total Bilirubin (test 0.5 mg/dL 0.2-1.2 Specim en slightly code = 1974-2) hemolyzed Sodium (test code = 141 meq/L 681-078 1840-2) Potassium (test code 4.0 meq/L 3.5-5.1 Specime [...] Calcium (test code = 9.3 mg/dL 8.4-10.2 24552-1) AST (test code = 22 U/L 5-34 Specimen sl ightly 1920-8) hemolyzed ALT (test code = 8 U/L 6-55 Specimen sl ightly 1742-6) hemolyzed EGFR (test code = 60 mL/min/1.73 [place] [address]-2) NOT ACCURATE CREATININE CLEARANCE IN PREDICTING GLOMERULAR FILTRATION RATE . ESTIMATED GFR I S NOT APPLICABLE FOR DIALYSIS PATIEN TS. GRAVES (test code = STAR) Medical Sales Representative ID - DB Lab Interpretation Abnormal (test code = 24964-9) [facility]Com[facility] [id number] 15:34:00 Test Item Value Reference Range Interpretation [...] 3.2 g/dL 3.5-5.0 L Specime n slightly 16011-0) hemolyzed Alkaline Phosphatase 43 U/L 40-150 (test code = 6768-6) Total Bilirubin (test 0.5 mg/dL 0.2-1.2 Specim en slightly code = 1975-2) hemolyzed Sodium (test code = 141 meq/L 024-325 6007-2) Potassium (test code 4.0 meq/L 3.5-5.1 Specime [...] Calcium (test code = 9.3 mg/dL 8.4-10.2 79010-2) AST (test code = 22 U/L 5-34 Specimen sl ightly 1920-8) hemolyzed ALT (test code = 8 U/L 6-55 Specimen sl ightly 1742-6) hemolyzed EGFR (test code = 60 mL/min/1.[place] [address]-6) NOT ACCURATE CREATININE CLEARANCE IN PREDICTING GLOMERULAR FILTRATION RATE . ESTIMATED GFR I S NOT APPLICABLE FOR DIALYSIS PATIEN TS. STAR (test code = STAR) Medical Sales Representative ID - DB Lab Interpretation Abnormal (test code = 32485-9) [facility]MAG[facility] 15:34:00 Test Item Value Reference Range Interpretation Comments MAGNESIUM (BEAKER) 1.7 mg/dL 1.6-2.6 Specimen slightly (test code = 627) hemolyzed Medical Sales Representative ID - [id number] 15:34:00 Test Item Value Reference Range Interpretation Comments PHOSPHORUS (BEAKER) 3.9 mg/dL 2.3-4.7 Specimen slightly (test code = 604) hemolyzed Medical Sales Representative ID - DBCOMPREHENSIVE METABOLIC [id number] 15:34:00 Test Item Value Reference Range Interpretation [...] S NOT APPLICABLE FOR DIALYSIS PATIEN TS. Medical Sales Representative ID - DBPT/[id number] 15:30:00 Test Item Value Reference Interpretation Comments Range Protime (test code = 13.9 See_Comment [Autom ated 5902-2) message] The system which generated this result transmitted reference range : 11.9 - 14.2 seconds. The reference range was not used to interpret this result as normal/abnormal . INR (test code = 1.11 See_Comment [Automated 6001-6) message] The system which generated this result transmitted reference range : <=5.90. The reference range was not used to interpret this result as normal/abnormal . PTT (test code = 24.3 See_Comment [Automated 95820-0) message] The system which generated this result [...] valves. Lab Interpretation Normal (test code = 75221-9) [facility]PT/[id number] 15:30:00 Test Item Value Reference Interpretation Comments Range Protime (test code = 13.9 See_Comment [Autom ated 5902-2) message] The system which generated this result transmitted reference range : 11.9 - 14.2 seconds. The reference range was not used to interpret this result as normal/abnormal . INR (test code = 1.11 See_Comment [Automated 6301-6) message] The system which generated this result transmitted reference range : <=5.90. The reference range was not used to interpret this result as normal/abnormal . PTT (test code = 24.3 See_Comment [Automated 62059-6) message] The system which generated this result [...] valves. Lab Interpretation Normal (test code = 72660-4) [facility] HospitalPT/[id number] 15:30:00 Test Item Value Reference Range Interpretation [...] is2.5-3.5 for patients wiht mechanical heart valves.PROTHROMBIN TIME/[id number] 15:29:00 Test Item Value Reference Range Interpretation [...] for patients wiht mechanical heart valves.LACTIC ACID, [id number] 15:26:00 Test Item Value Reference Range Interpretation Comments LACTATE BLOOD 0.9 mmol/L 0.5-2.2 Specimen moder ately ARTERIAL (2) (BEAKER) hemoly zed (test code = 2874) Medical Sales Representative ID - DBRAD, CHEST, 1 VIEW, NON [id number] 15:22:00For chest painReason for exam:->post-operativeShould this be performed at the bedside?->Yes[facility] : 1950 Sex: [...] MDReport Verified Date/Time: 07/19/2020 15:22:42 Reading Location: [facility] Radiology Reading Room CBC W/PLT COUNT & AUTO [id number] 15:19:00 Test Item Value Reference Range Interpretation [...] PERCENT (BEAKER) (test code = 2801) Platelet [id number] 14:43:00 Test Item Value Reference Range Interpretation Comments Platelets (test code 428 See_Comment [Autom ated = 777-3) message] The system which generated this result transmit rory reference range : 150 - 450 K/CU MM. The reference range was not u sed to interpret th is result as normal/abnormal . STAR (test code = STAR) Medical Sales Representative ID - [id number] Lab Interpretation Normal (test code = 30661-5) [facility] HospitalPlatelet [id number] 14:43:00 Test Item Value Reference Range Interpretation Comments Platelets (test code 428 See_Comment [Autom ated = 777-3) message] The system which generated this result transmit rory reference range : 150 - 450 K/CU MM. The reference range was not u sed to interpret th is result as normal/abnormal . STAR (test code = STAR) Medical Sales Representative ID - 6000 Lab Interpretation Normal (test code = 38786-4) [facility] HospitalPLATELET [id number] 14:43:00 Test Item Value Reference Range Interpretation Comments PLATELET COUNT (BEAKER) (test 428 K/CU MM 150-450 code = 756) Medical Sales Representative ID - [id number]-STAT [id number] 14:39:00 Test Item Value Reference Range Interpretation Comments GLUCOSE RANDOM (BEAKER) (test code 157 mg/dL 70-110 H = 652) Only if arterial line present.HGB/HCT (H&H) - STAT [id number] 14:39:00 Test Item Value Reference Range Interpretation Comments HEMOGLOBIN (BEAKER) (test code = 12.0 GM/DL 12.0-15.0 410) HEMATOCRIT (BEAKER) (test code = 35.0 % 36.0-45.0 L 411) Only if arterial line present.BLOOD GAS, [id number] 14:39:00 Test Item Value Reference Range Interpretation [...] 1819) 44.0 Only if arterial line present.CALCIUM, [id number] 14:39:00 Test Item Value Reference Range Interpretation Comments CALCIUM IONIZED (BEAKER) (test 1.35 mmol/L 1.12-1.27 H code = 698) PH, BLOOD (BEAKER) (test code = 7.31 1810) Sodium Na-Stat [id number] 14:37:00 Test Item Value Reference Range Interpretation Comments Sodium (test code = 138 meq/L 511-580 1641-2) STAR (test code = STAR) Only if arterial line present. Lab Interpretation (test Normal code = 50580-5) [facility] [id number] 14:37:00 Test Item Value Reference Range Interpretation Comments Sodium (test code = 138 meq/L 667-863 0334-2) STAR (test code = STAR) Only if arterial line present. Lab Interpretation (test Normal code = 60775-9) [facility] NA[facility] [id number] 14:37:00 Test Item Value Reference Range Interpretation Comments SODIUM (BEAKER) (test code = 381) 138 meq/L 136-145 Only if arterial line present.POTASSIUM-STAT [id number] 14:37:00 Test Item Value Reference Range Interpretation Comments POTASSIUM (BEAKER) (test code = 3.5 meq/L 3.6-5.5 L 379) Only if arterial line present.ABORH, [id number] 09:19:00 Test Item Value Reference Range Interpretation Comments ABO Grouping (test code = 2588) O Rh Factor (test code = 2589) POS [facility] HospitalABORH, [id number] 09:19:00 Test Item Value Reference Range Interpretation Comments ABO Grouping (test code = 2588) O Rh Factor (test code = 2589) POS [facility] ([facility])2020-07-16 14:33:00 Test Item Value Reference Range Interpretation Comments SARS-COV2/RT-PCR (test Negative Not Detected, Negative, code = 0177353) See external report for linked test SARS-COV-2 PERFORMING LAB [facility] PATRICIO (test code = 2333224) Negative result for this test determines that [...] 564(g) of the Act.Fact Sheet for Healthcare Providers:https://www.[employer]/sites/default/files/product/documents/Fact_Shee l_WA_Dnjgmtzce_Vthj_TKQT-TnN-5.pdfFact Sheet for Healthcare Patients:https://www.[employer]com/sites/default/files/product/ documents/Lklb_Eomyd_Dyjmalge_Oqyz_NVJM-GsW-3.pdfPerforming Laboratory:[facility], [place] [address]Lirn and screen, automated ([facility] Blood [facility])2020-07-16 10:31:00 Test Item Value Reference Range Interpretation Comments ABO/RH AUTOMATED (BEAKER) (test O POSITIVE code = 2260) Ab Scrn (test code = 890-4) NEGATIVE [facility] HospitalType and screen, automated ([facility] Blood [facility]) 2020-07-16 10:31:00 Test Item Value Reference Range Interpretation Comments ABO/RH AUTOMATED (BEAKER) (test O POSITIVE code = 2260) Ab Scrn (test code = 890-4) NEGATIVE [facility]
[2021-06-17] MEDS ORDERED: NA CHLORIDE 0.9% 250 ML ONE (03:19)
[2021-06-17] MEDS ORDERED: AMIODARONE HCL 150 MG/3 ML INJ IV ONE (03:19)
[2021-06-17] MEDS ORDERED: D5W 100 ML IV ONE (03:20)
[2021-06-17 03:56] LABS: Absolute Lymphocytes (CBC) 2.1 K/uL (0.7-4.9); Basophils % 0.2 % (0-1.3); Hematocrit 26.4 % (36.0-45.0); Lymphocytes % 17.9 % (15.3-44.8); MPV 7.5 fL (7.6-11.3); Protime INR 2.94; RBC Red Blood Cell Count 3.09 M/uL (3.86-4.86)
[2021-06-17 04:11] LABS: Albumin 2.9 g/dL (3.4-5.0); Bilirubin Direct 0.2 mg/dL (0-0.2); Bilirubin Total 0.6 mg/dL (0.2-1.0); Potassium 4.6 mmol/L (3.5-5.1); Protein, Total 6.7 g/dL (6.4-8.2); Troponin (Emerg Dept Use Only) 0.04 ng/mL (0.0-0.045)
[2021-06-17] MEDS ORDERED: AMIODARONE IN DEXTROSE,ISO-OSM 360 MG/200 ML BAG IV ONE ×2 (04:37→10:33)
[2021-06-17] MEDS ORDERED: LORazepam 2 MG/ML VIAL ONE ×5 (04:55→20:53)
[2021-06-17] MEDS ORDERED: MAGNESIUM SULFATE 1 gm IVPB 1 GM/100 ML BAG IV ONE (06:39)
--- NOTE | 2021-06-17 06:39 | EDPHYS ---
Physician Documentation [facility] Name: Susana Jaffe Age: 71 yrs Sex: Female : 1950 Arrival Date: 06/17/2021 Time: 02:57 Bed 27 Private MD: ED Physician Osvaldo Hartley HPI: 06/17 03:33 This 71 yrs old Female presents to ER via EMS with complaints of Breathing rn Difficulty. 03:33 The patient has shortness of breath at rest. Onset: The symptoms/episode began/occurred rn just prior to arrival. Duration: The symptoms are continuous. The patient's shortness of breath is aggravated by supine position, talking, is alleviated by. The patient's shortness of breath is alleviated by BiPAP by EMS. Associated signs and symptoms: Pertinent positives: chest pain, Pertinent negatives: fever, hemoptysis. Severity of symptoms: At their worst the symptoms were moderate in the emergency department the symptoms have improved. The patient has experienced similar episodes in the past. The patient has not recently seen a physician. Patient reports shortness of breath the last 2 days, states compliant with her Lasix, just had her Lasix doubled by Dr. Shaver yesterday. EMS states improved on BiPAP. EMS reports tachycardia to the 150s and blood pressure 110 systolic. No meds given. Patient states compliant with her Xarelto and her metoprolol.. Historical: - Allergies: 03:09 iodine ..; sm5 - Home Meds: 03:09 Albuterol Inhl [Active]; aspirin 81 mg Oral chew 1 tab once daily [Active]; sm5 atorvastatin 20 mg Oral tab 1 tab once daily [Active]; clopidogrel 75 mg Oral tab 1 tab once daily [Active]; dulera as needed [Active]; fenofibrate 145 MG Oral once daily [Active]; furosemide 40 mg Oral tab 1 tab once daily [Active]; Klor-Con 10 20 meq Oral 1 tab once daily [Active]; levothyroxine 25 mcg tab 1 tab once daily [Active]; metoprolol tartrate 25 mg Oral tab 1 tab once daily [Active]; Vitamin C 500 mg Oral tab daily [Active]; - PMHx: 03:09 Cancer, Breast; Hyperlipidemia; Hypertension; Hypothyroidism; ruptured colon; sm5 - PSHx: 03:09 Appendectomy; back; Carotid endarterectomy; Cholecystectomy; colon resection; sm5 hysterectomy; left knee; rotator cuff; mastectomy-left; Thyroidectomy; Tonsillectomy; - Immunization history:: Client reports receiving the 2nd dose of the Covid vaccine. - Social history:: Smoking status: Patient/guardian denies using tobacco, Stopped _ months ago 11. - Family history:: not pertinent. - Hospitalizations: : No recent hospitalization is reported. ROS: 03:33 Constitutional: Negative for fever, chills, and weight loss, Eyes: Negative for injury, rn pain, redness, and discharge, Neck: Negative for injury, pain, and swelling, Cardiovascular: Positive for chest pain and palpitations, positive for edema Respiratory: Positive for shortness of breath, negative for cough Abdomen/GI: Negative for abdominal pain, nausea, vomiting, diarrhea, and constipation, Back: Negative for injury and pain, MS/Extremity: Negative for injury and deformity, Skin: Negative for injury, rash, and discoloration, Neuro: Negative for headache, weakness, numbness, tingling, and seizure. Exam: 03:33 Constitutional: This is a well developed, well nourished patient who is awake, alert, rn and in no acute distress. Head/Face: Normocephalic, atraumatic. Eyes: Periorbital areas with no swelling, redness, or edema. Cardiovascular: Tachycardic, irregular. Weak radial pulse. No pulse deficits. Respiratory: Moderate tachypnea Abdomen/GI: Soft, non-tender Skin: Warm, dry MS/ Extremity: Pulses equal, no cyanosis Neuro: Awake and alert, GCS 15 04:31 ECG was reviewed by the Attending Physician. rn Vital Signs: 03:04 BP 99 / 75; Pulse 155; Resp 28; Pulse Ox 100% 15 lpm ; Weight 97.52 kg; Height 0 ft. 2 sm5 in. (6 cm); 04:31 BP 101 / 56; Pulse 144; Resp 30; Pulse Ox 99% on BiPAP; sm5 05:23 BP 105 / 89; Pulse 128; Resp 25; Pulse Ox 97% on BiPAP; sm5 06:30 BP 110 / 80; Pulse 136; Resp 26; Pulse Ox 95% on BiPAP; sm5 07:00 BP 108 / 65; Pulse 126; Resp 29; Temp 97.9; Pulse Ox 95% on BiPAP; jl7 03:04 Body Mass Index 72749.54 (97.52 kg, 6 cm) 5 Procedures: 04:13 Peripheral line: by aseptic technique a peripheral line was placed in the left rn antecubital vein, Ultrasound-guided IV, 22-gauge, placed left AC after no targets found in the right arm and multiple attempts by nursing. Good flush and tolerated well, patient denies any pain when using that IV.. 06:30 Central Line: the site was prepped with Betadine, in sterile fashion, a triple lumen rn catheter was inserted, in the right femoral vein, in 1 attempts. placement was verified, by blood return, the site was dressed with Tegaderm, using sterile technique, the patient tolerated the procedure, well. 09:16 Intubation: Ventilated with 100% NRB prior to procedure. O2 saturation prior to kdr procedure was 78 %. Intubated orally using Kincaid scope with 7.5 mm ETT. was successful on first attempt. Ventilated with Ambu bag. Tube secured with ETT wynn Placement verified by auscultating bilateral breath sounds, O2 saturation after procedure was 98 %. Patient tolerated well. MDM: 03:01 Patient medically screened. rn 06:06 ED course: IV blew, currently no IV access, nursing unable to obtain access, will place rn central line given HR still in 140s, BP slowly improving. 06:30 Differential diagnosis: CHF exacerbation, Myocardial Infarction pulmonary edema. Data rn reviewed: vital signs, nurses notes, lab test result(s), EKG, radiologic studies, plain films, and as a result, I will admit patient. 06:36 Counseling: I had a detailed discussion with the patient and/or guardian regarding: the rn historical points, exam findings, and any diagnostic results supporting the discharge/admit diagnosis, lab results, radiology results, the need for further work-up and treatment in the hospital. Response to treatment: the patient's symptoms have mildly improved after treatment, and as a result, I will admit patient. Admission orders: after a detailed discussion of the patient's condition and case, the admit orders are written by me. ED course: Consulted with Dr. Ruano, requested admission to hospitalist service, Dr. Ko notified and will come and evaluate patient. . 06/17 03:05 Order name: Basic Metabolic Panel; Complete Time: 04:50 rn 06/17 03:05 Order name: CBC with Diff; Complete Time: 04:50 rn 06/17 03:05 Order name: LFT's; Complete Time: 04:50 rn 06/17 03:05 Order name: NT PRO-BNP; Complete Time: 04:50 rn 06/17 03:05 Order name: PT-INR; Complete Time: 04:50 rn 06/17 03:05 Order name: Troponin (emerg Dept Use Only); Complete Time: 04:50 rn 06/17 03:05 Order name: SARS-COV-2 RT PCR (Document "Date of Onset" if Symptomatic); Complete Time: rn 06:56 12 12:51 Order name: ABG Arterial Blood Gas; Complete Time: 07:00 EDMS 06/17 12:54 Order name: Protime (+INR); Complete Time: 07:00 EDMS 06/17 12:54 Order name: PTT, Activated Partial Thromb; Complete Time: 07:00 EDMS 06/17 12:54 Order name: ABG Arterial Blood Gas; Complete Time: 07:00 EDMS 06/17 12:56 Order name: ABG Arterial Blood Gas; Complete Time: 07:00 EDMS 06/17 13:01 Order name: Creatine Phosphokinase; Complete Time: 07:00 EDMS 06/17 13:01 Order name: CKMB Creatine Kinase MB; Complete Time: 07:00 EDMS 06/17 13:01 Order name: Troponin I; Complete Time: 07:00 EDMS 06/17 13:01 Order name: Comprehensive Metabolic Panel; Complete Time: 07:00 EDMS 06/17 13:01 Order name: ABG Arterial Blood Gas; Complete Time: 07:00 EDMS 06/17 13:59 Order name: Hemoglobin; Complete Time: 07:00 EDMS 06/17 13:59 Order name: Hematocrit; Complete Time: 07:00 EDMS 06/17 14:36 Order name: Iron; Complete Time: 07:00 EDMS 06/17 14:36 Order name: Transferrin Sat/Iron Binding; Complete Time: 07:00 EDMS 06/17 14:36 Order name: Vitamin B12 Level; Complete Time: 07:00 EDMS 06/17 15:05 Order name: Creatine Phosphokinase; Complete Time: 07:00 EDMS 06/17 15:12 Order name: Ur Protein; Complete Time: 07:00 EDMS 06/17 15:14 Order name: UR SODIUM; Complete Time: 07:00 EDMS 06/17 15:14 Order name: UR POTASSIUM; Complete Time: 07:00 EDMS 06/17 15:34 Order name: Urinalysis W/Microscopic; Complete Time: 07:00 EDMS 06/17 16:12 Order name: Osmolality, Urine; Complete Time: 07:00 EDMS 06/17 18:02 Order name: Creatine Phosphokinase; Complete Time: 07:00 EDMS 06/17 18:02 Order name: CKMB Creatine Kinase MB; Complete Time: 07:00 EDMS 06/18 05:46 Order name: CBC with Automated Diff; Complete Time: 07:00 EDMS 06/18 05:47 Order name: PTT, Activated Partial Thromb; Complete Time: 07:00 EDMS 06/18 05:51 Order name: Protime (+INR); Complete Time: 07:00 EDMS 06/18 06:26 Order name: Comprehensive Metabolic Panel; Complete Time: 07:00 EDMS 06/18 06:26 Order name: Phosphorus; Complete Time: 07:00 EDMS 06/18 06:26 Order name: Lipid Profile; Complete Time: 07:00 EDMS 06/18 06:26 Order name: T4 Free; Complete Time: 07:00 EDMS 06/18 06:26 Order name: Magnesium; Complete Time: 07:00 EDMS 06/18 06:26 Order name: Thyroid Stimulating Hormone; Complete Time: 07:00 EDMS 06/18 06:26 Order name: Transferrin Sat/Iron Binding; Complete Time: 07:00 EDMS 06/18 06:26 Order name: Ferritin; Complete Time: 07:00 EDMS 06/18 06:26 Order name: Vitamin B12 Level; Complete Time: 07:00 EDMS 06/18 08:14 Order name: Manual Differential; Complete Time: 07:00 EDMS 06/18 10:59 Order name: Procalcitonin; Complete Time: 07:00 EDMS 06/18 16:38 Order name: ABG Arterial Blood Gas; Complete Time: 07:00 EDMS 06/19 05:08 Order name: CBC with Automated Diff; Complete Time: 07:00 EDMS 06/19 05:09 Order name: PTT, Activated Partial Thromb; Complete Time: 07:00 EDMS 06/19 05:14 Order name: Protime (+INR); Complete Time: 07:00 EDMS 06/19 05:17 Order name: Comprehensive Metabolic Panel; Complete Time: 07:00 EDMS 06/19 05:17 Order name: Magnesium; Complete Time: 07:00 EDMS 06/19 06:13 Order name: ABG Arterial Blood Gas; Complete Time: 07:00 EDMS 06/19 10:44 Order name: Blood Culture EDMS 06/19 15:13 Order name: ABG Arterial Blood Gas; Complete Time: 07:00 EDMS 06/20 05:46 Order name: PTT, Activated Partial Thromb; Complete Time: 07:00 EDMS 06/20 05:47 Order name: CBC with Automated Diff EDMS 06/20 05:49 Order name: Protime (+INR); Complete Time: 07:00 EDMS 06/20 05:51 Order name: ABG Arterial Blood Gas; Complete Time: 07:00 EDMS 06/20 05:53 Order name: Comprehensive Metabolic Panel; Complete Time: 07:00 EDMS 06/20 05:53 Order name: Magnesium; Complete Time: 07:00 EDMS 06/20 07:33 Order name: Manual Differential EDMS 06/20 15:08 Order name: ABG Arterial Blood Gas EDMS 06/20 15:35 Order name: ABO/RH typing EDMS 06/17 03:05 Order name: XRAY Chest (1 view); Complete Time: 07:00 rn 12 03:05 Order name: EKG; Complete Time: 03:06 rn 06/17 03:05 Order name: Cardiac monitoring; Complete Time: 03:43 rn 06/17 03:05 Order name: EKG - Nurse/Tech; Complete Time: 03:43 rn 10 03:05 Order name: IV Saline Lock; Complete Time: 05:48 rn 10 03:05 Order name: Labs collected and sent; Complete Time: 03:43 rn 10 03:05 Order name: O2 Per Protocol; Complete Time: 03:43 rn 06/17 03:05 Order name: BIPAP rn 06/17 10:18 Order name: RAD; Complete Time: 07:00 EDMS 06/18 09:34 Order name: RAD; Complete Time: 07:00 EDMS 06/19 07:23 Order name: RAD; Complete Time: 07:00 EDMS 06/19 12:19 Order name: US; Complete Time: 07:00 EDMS 06/20 08:02 Order name: RAD EDMS 06/20 15:36 Order name: Antibody Screen EDMS 06/20 16:50 Order name: ABG Arterial Blood Gas EDMS 06/20 16:52 Order name: ABG Arterial Blood Gas EDMS 06/20 17:36 Order name: RAD EDMS 06/20 17:36 Order name: RAD EDMS 06/20 18:22 Order name: ABG Arterial Blood Gas EDMS 06/21 05:27 Order name: CBC with Automated Diff EDMS 06/21 05:34 Order name: Protime (+INR) EDMS 06/21 05:34 Order name: PTT, Activated Partial Thromb EDMS 06/21 05:34 Order name: Comprehensive Metabolic Panel EDMS 06/21 05:34 Order name: Magnesium EDMS 06/21 10:14 Order name: RAD EDMS 06/21 12:18 Order name: Glucose, Ancillary Testing EDMS 06/21 14:11 Order name: Osmolality, Urine EDMS 06/21 15:51 Order name: UR SODIUM EDMS 06/21 15:51 Order name: UR POTASSIUM EDMS 06/21 20:41 Order name: CT EDMS 06/21 23:44 Order name: Hemoglobin EDMS 06/21 23:44 Order name: Hematocrit EDMS 06/22 06:38 Order name: CBC with Automated Diff EDMS 06/22 07:33 Order name: RAD EDMS 06/22 07:43 Order name: Renal Panel EDMS 06/22 07:43 Order name: Magnesium EDMS 06/22 12:38 Order name: Glucose, Ancillary Testing EDMS 06/22 13:31 Order name: HIV AG/AB, 4th Gen W/ Reflex EDMS 06/22 18:17 Order name: Glucose, Ancillary Testing EDMS 06/23 07:33 Order name: RAD EDMS 06/23 09:00 Order name: Glucose, Ancillary Testing EDMS 06/23 11:17 Order name: CBC with Automated Diff EDMS 06/23 11:25 Order name: Basic Metabolic Panel EDMS 06/23 11:25 Order name: Phosphorus EDMS 06/23 11:25 Order name: Magnesium EDMS 06/23 12:25 Order name: Manual Differential EDMS 06/23 12:27 Order name: Glucose, Ancillary Testing EDMS 06/23 14:17 Order name: Urinalysis EDMS 06/23 14:26 Order name: Urine Microscopic Only EDMS 06/23 17:24 Order name: Glucose, Ancillary Testing EDMS 06/23 18:43 Order name: Hepatitis Panel,Acute EDMS 06/24 06:46 Order name: CBC with Automated Diff EDMS 06/24 06:54 Order name: Blood Culture EDMS 06/24 07:05 Order name: Comprehensive Metabolic Panel EDMS 06/24 07:08 Order name: Sputum Culture EDMS 06/24 09:02 Order name: RAD EDMS 06/24 15:31 Order name: RAD EDMS 06/17 03:05 Order name: O2 Sat Monitoring; Complete Time: 03:43 rn 06/20 14:21 Order name: Labs - recollect needed: recollect type and screen. reband pt.; Complete bd Time: 00:40 EC:31 Rate is 148 beats/min. Rhythm is irregularly irregular. QRS [place] is Normal. IN interval rn is normal. QRS interval is prolonged at 126 msec. QT interval is normal. No Q waves. T waves are Normal. No ST changes noted. Clinical impression: Atrial Fibrillation and RVR. Reviewed by me. Administered Medications: 04:25 Drug: amiodarone 150 mg Volume: 100 ml; Route: IVPB; Infused Over: 10 mins; Site: right sm5 antecubital; 04:35 Follow up: IV Status: Completed infusion; IV Intake: 100ml 5 04:48 Drug: amiodarone 900 mg, D5W 500 ml Route: IVPB; Rate: 1 mg/min; Site: left antecubital;5 11:12 Follow up: IV Status: Infusion continued upon admission jl7 05:03 Drug: Ativan (LORazepam) 0.5 mg Route: IVP; Site: left antecubital; 5 06/18 12:49 Follow up: Response: No adverse reaction 1 06/17 05:34 Not Given (Physician Discretion): Magnesium Sulfate 1 grams IVPB once over 1 hrs 5 05:34 Drug: NS 0.9% 250 ml Route: IV; Rate: bolus; Site: left antecubital; 5 06/18 12:49 Follow up: Response: No adverse reaction; IV Status: Completed infusion; IV Intake: ll1 250ml 06/17 06:20 Drug: Ativan (LORazepam) 0.5 mg Route: IM; Site: right deltoid; 5 06/18 12:49 Follow up: Response: No adverse reaction ll1 06/17 06:46 Drug: Magnesium Sulfate 1 grams Route: IVPB; Infused Over: 1 hrs; Site: right femoral; 5 07:15 Follow up: Response: No adverse reaction; IV Status: Completed infusion jl7 Disposition: 06:49 Critical Care:. rn Disposition Summary: 06/17/21 06:38 Hospitalization Ordered Hospitalization Status: Inpatient Admission rn Provider: Stone Ko rn Condition: Fair rn Problem: new rn Symptoms: have improved rn Bed/Room Type: Standard rn Location: [facility] ER HOLD(06/17/21 15:40) Room Assignment: ERHOLD-(06/17/21 15:40) Diagnosis - Persistent atrial fibrillation - With RVR rn - Unspecified combined systolic (congestive) and diastolic (congestive) heart failure rn Forms: - Medication Reconciliation Form rn - SBAR form dehorner time excluding procedures: 06:49 Critical care time: Bedside Care: 60 minutes, Consultation: 10 minutes, Family rn Intervention: 10 minutes. Total time: 80 minutes Signatures: Dispatcher [employer] EDMS Christie Hinkle Kevin, MD MD kdr Nieto, Roman, MD MD rn Smirch, Shelby, LINCOLN RN ss Johanna Cerda RN RN [email or web address] Salud Rae RN [id number] Dani Menendez RN ll1 Corrections: (The following items were deleted from the chart) 03:36 03:33 Constitutional: Negative for fever, chills, and weight loss, Eyes: Negative for rn injury, pain, redness, and discharge, Neck: Negative for injury, pain, and swelling, Cardiovascular: Positive for chest pain and palpitations, positive for edema Respiratory: Positive for shortness of breath, negative for cough Abdomen/GI: Negative for abdominal pain, nausea, vomiting, diarrhea, and constipation, Back: Negative for injury and pain, MS/Extremity: Negative for injury and deformity, Skin: Negative for injury, rash, and discoloration, Neuro: Negative for headache, weakness, numbness, tingling, and seizure, rn 03:37 03:33 Constitutional: This is a well developed, well nourished patient who is awake, rn alert, and in no acute distress. rn 15:40 06:38 Intensive Care Unit rn ss 15:40 06:38 rn ss
--- NOTE | 2021-06-17 06:39 | ER ---
Nurse's Notes [facility] Name: Susana Jaffe Age: 71 yrs Sex: Female : 1950 Arrival Date: 06/17/2021 Time: 02:57 Bed 27 Private MD: Diagnosis: Persistent atrial fibrillation-With RVR;Unspecified combined systolic (congestive) and diastolic (congestive) heart failure Presentation: 06/17 03:04 Chief complaint: EMS states: pt has hx of chf, been having increasing sob over the past sm5 2 days, not getting any better. increased lasix dose this morning. Coronavirus screen: Vaccine status: Patient reports receiving the 2nd dose of the covid vaccine. Ebola Screen: Patient negative for fever greater than or equal to 101.5 degrees Fahrenheit, and additional compatible Ebola Virus Disease symptoms Patient denies exposure to infectious person. Patient denies travel to an Ebola-affected area in the 21 days before illness onset. No symptoms or risks identified at this time. Initial Sepsis Screen: Does the patient meet any 2 criteria? RR > 20 per min. HR > 90 bpm. Does the patient have a suspected source of infection? No. Patient's initial sepsis screen is negative. Risk Assessment: Do you want to hurt yourself or someone else? Patient reports no desire to harm self or others. Onset of symptoms was June 15, 2021. 03:04 Method Of Arrival: EMS [facility] 03:04 Acuity: CINDY 2 5 Triage Assessment: 04:31 General: Appears uncomfortable, Behavior is appropriate for age. Respiratory: Reports 5 shortness of breath labored breathing Onset: The symptoms/episode began/occurred 2 days ago, the patient has moderate shortness of breath. Historical: - Allergies: 03:09 iodine ..; sm5 - Home Meds: 03:09 Albuterol Inhl [Active]; aspirin 81 mg Oral chew 1 tab once daily [Active]; sm5 atorvastatin 20 mg Oral tab 1 tab once daily [Active]; clopidogrel 75 mg Oral tab 1 tab once daily [Active]; dulera as needed [Active]; fenofibrate 145 MG Oral once daily [Active]; furosemide 40 mg Oral tab 1 tab once daily [Active]; Klor-Con 10 20 meq Oral 1 tab once daily [Active]; levothyroxine 25 mcg tab 1 tab once daily [Active]; metoprolol tartrate 25 mg Oral tab 1 tab once daily [Active]; Vitamin C 500 mg Oral tab daily [Active]; - PMHx: 03:09 Cancer, Breast; Hyperlipidemia; Hypertension; Hypothyroidism; ruptured colon; sm5 - PSHx: 03:09 Appendectomy; back; Carotid endarterectomy; Cholecystectomy; colon resection; sm5 hysterectomy; left knee; rotator cuff; mastectomy-left; Thyroidectomy; Tonsillectomy; - Immunization history:: Client reports receiving the 2nd dose of the Covid vaccine. - Social history:: Smoking status: Patient/guardian denies using tobacco, Stopped _ months ago 11. - Family history:: not pertinent. - Hospitalizations: : No recent hospitalization is reported. Screenin:09 Abuse screen: Denies threats or abuse. Denies injuries from another. Nutritional sm5 screening: No deficits noted. Tuberculosis screening: No symptoms or risk factors identified. Fall Risk No fall in past 12 months (0 pts). No secondary diagnosis (0 pts). IV access (20 points). Ambulatory Aid- None/Bed Rest/Nurse Assist (0 pts). Gait- Normal/Bed Rest/Wheelchair (0 pts) Mental Status- Oriented to own ability (0 pts). Total Ybarra Fall Scale indicates No Risk (0-24 pts). Assessment: 03:13 General: Appears distressed, Behavior is cooperative. Pain: Complains of pain in chest sm5 Quality of pain is described as dull. Neuro: Level of Consciousness is awake, alert, Oriented to person, place, time, situation. Cardiovascular: Capillary refill < 3 seconds Edema pitting to left midcalf, left ankle, left foot, left toes, right midcalf, right ankle, right foot and right toes Rhythm is atrial fibrillation. Respiratory: Airway is patent Trachea midline Respiratory effort is labored, Patient placed on BiPAP: Breath sounds with crackles. GI: No deficits noted. Vital Signs: 03:04 BP 99 / 75; Pulse 155; Resp 28; Pulse Ox 100% 15 lpm ; Weight 97.52 kg; Height 0 ft. 2 sm5 in. (6 cm); 04:31 BP 101 / 56; Pulse 144; Resp 30; Pulse Ox 99% on BiPAP; sm5 05:23 BP 105 / 89; Pulse 128; Resp 25; Pulse Ox 97% on BiPAP; sm5 06:30 BP 110 / 80; Pulse 136; Resp 26; Pulse Ox 95% on BiPAP; sm5 07:00 BP 108 / 65; Pulse 126; Resp 29; Temp 97.9; Pulse Ox 95% on BiPAP; jl7 03:04 Body Mass Index 47597.54 (97.52 kg, 6 cm) 5 ED Course: 02:57 Patient arrived in ED. wm 03:01 Osvaldo Hartley MD is Attending Physician. rn 03:04 Johanna Cerda RN is Primary Nurse. 5 03:09 Triage completed. sm5 03:13 Arm band placed on right wrist. sm5 03:13 Patient has correct armband on for positive identification. Placed in gown. Bed in low sm5 position. Call light in reach. computer information science professor on. Pulse ox on. NIBP on. 03:20 Missed attempt(s): 18 gauge in right forearm. Bleeding controlled, band aid applied, bb catheter tip intact. 03:24 XRAY Chest (1 view) In Process Unspecified. EDMS 03:43 BIPAP Sent. sm5 03:43 Basic Metabolic Panel Sent. sm5 03:43 CBC with Diff Sent. sm5 03:43 LFT's Sent. sm5 03:43 NT PRO-BNP Sent. sm5 03:43 PT-INR Sent. sm5 03:43 Troponin (emerg Dept Use Only) Sent. sm5 04:32 Inserted saline lock: 22 gauge in left antecubital area, using aseptic technique. sm5 05:09 SARS-COV-2 RT PCR (Document "Date of Onset" if Symptomatic) Sent. sm5 06:38 Stone Ko DO is Hospitalizing Provider. rn 06:52 Assisted provider with central line placement. Set up central line tray. Triple lumen sm5 line placed in right femoral. Line placed by Osvaldo Hartley MD Placement verified by blood return, Dressed with Tegaderm, Patient tolerated well. Before procedure, did Practitioner(s) obtain informed consent? Yes. Patient \\T\\ family education about procedure, CLABSI prevention and S/S of infection? Yes. Time-out/Briefing performed prior to start of procedure? Yes. Was handwashing/sanitizing done immediately prior to procedure? Yes. Was patient positioned to in a way to prevent air embolism? Yes. Was procedure site sterilized? Yes, with chlorhexidine. Was the site allowed to dry? Yes. Was local anesthetic and/or sedation utilized? Yes. During the procedure, did the Practitioner(s) maintain a sterile field? Yes. Were unused ports clamped during insertion? Yes. Was a 2nd qualified MD obtained after 3 unsuccessful insertion attempts? No. Was blood aspirated from each lumen? Yes. After the procedure, did the Practitioner(s) clean the site and apply a sterile dressing? Yes. 07:00 Patient admitted, IV remains in place. intact, No redness/swelling at site. [facility] 06/18 07:11 Primary Nurse role handed off by Johanna Cerda RN 09:15 Dani Menendez, RN is Primary Nurse. [facility] 20:03 Primary Nurse role handed off by Dani Menendez RN 2 06/19 07:10 Dani Menendez, RN is Primary Nurse. 1 19:14 Primary Nurse role handed off by Dani Menendez RN 2 Administered Medications: 06/17 04:25 Drug: amiodarone 150 mg Volume: 100 ml; Route: IVPB; Infused Over: 10 mins; Site: right sm5 antecubital; 04:35 Follow up: IV Status: Completed infusion; IV Intake: 100ml [facility] 04:48 Drug: amiodarone 900 mg, D5W 500 ml Route: IVPB; Rate: 1 mg/min; Site: left antecubital;[facility] 11:12 Follow up: IV Status: Infusion continued upon admission [facility] 05:03 Drug: Ativan (LORazepam) 0.5 mg Route: IVP; Site: left antecubital; [facility] 06/18 12:49 Follow up: Response: No adverse reaction [facility] 06/17 05:34 Not Given (Physician Discretion): Magnesium Sulfate 1 grams IVPB once over 1 hrs [facility] 05:34 Drug: NS 0.9% 250 ml Route: IV; Rate: bolus; Site: left antecubital; [facility] 06/18 12:49 Follow up: Response: No adverse reaction; IV Status: Completed infusion; IV Intake: ll1 250ml 06/17 06:20 Drug: Ativan (LORazepam) 0.5 mg Route: IM; Site: right deltoid; [facility] 06/18 12:49 Follow up: Response: No adverse reaction 1 06/17 06:46 Drug: Magnesium Sulfate 1 grams Route: IVPB; Infused Over: 1 hrs; Site: right femoral; 5 07:15 Follow up: Response: No adverse reaction; IV Status: Completed infusion 7 Intake: 04:35 IV: 100ml; Total: 100ml. sm5 06/18 12:49 IV: 250ml; Total: 350ml. ll1 Outcome: 06/17 06:38 Decision to Hospitalize by Provider. rn 07:00 Admitted to ER Hold. Please see [facility] for further documentation. jl7 07:00 critical 07:00 Discharge instructions given to patient, family, Instructed on the need for admit, Demonstrated understanding of instructions. 06/25 00:57 Patient left the ED. Signatures: Dispatcher [employer] EDMS Bridget Garcia RN RN Susana Pearl RN [place] bb Osvaldo Hartley MD MD rn Leal, Jahala, RN RN jl7 Johanne Saleem 2 Deanna Berry Lynsay, RN RN ll1 Zonia Medrano Sarah, RN RN sm5 Corrections: (The following items were deleted from the chart) 06/17 03:46 03:13 Cardiovascular: Capillary refill < 3 seconds Rhythm is atrial fibrillation [facility]5
[2021-06-17] MEDS ORDERED: FUROSEMIDE 100 MG/10 ML VIAL IV ONE ×2 (07:59→18:49)
[2021-06-17] MEDS: LORazepam 2 MG/ML VIAL IV PRN ×4 (08:13→21:01)
[2021-06-17] MEDS ORDERED: ACETAMINOPHEN 500 MG TAB PO PRN (08:15)
[2021-06-17] MEDS ORDERED: DOBUTAMINE 250 MG/250 ML BAG IV SCH (08:15)
[2021-06-17] MEDS ORDERED: FUROSEMIDE 40 MG/4 ML VIAL IV ONE (08:15)
--- NOTE | 2021-06-17 08:18 | P.HP ---
Certification for Inpatient Patient admitted to: Inpatient With expected LOS: >2 Midnights Patient will require the following post-hospital care: None Practitioner: I am a practitioner with admitting privileges, knowledge of patient current condition, hospital course, and medical plan of care. Services: Services provided to patient in accordance with Admission requirements found in Title 42 Section 412.3 of the Code of Federal Regulations Patient History Date of Service: 06/17/21 Primary Care Provider: Dr. Ruano(He asked for Hospitalist to see); Cardiology- Dr. Shaver Reason for admission: Shortness of breath History of Present Illness: 71-year-old female with history of atrial fibrillation, chronic diastolic CHF, hypertension, hyperlipidemia. Patient presented with increasing shortness of breath. This has been present for the last 2 days. Difficulty breathing worsened today. She has reported increase in edema to the lower extremities. She had called her electrical panel builder yesterday. Cardiology had increased her Lasix. Her condition did not improve. Patient reports some mild chest pain. Denies any nausea, vomiting or abdominal pain. Patient came to the ER for further evaluation. Patient found in acute distress. Patient required BiPAP. Blood pressure was initially low with atrial fibrillation noted with RVR with rate around 130-150. ER placed a central line. IV amiodarone was started. Blood pressure improved. On lab white count 11, hemoglobin 8.2. Platelet count 473. Sodium 143, po tassium 4.6. BUN of 16, creatinine 1.4 with a GFR 37. Glucose 127. Troponin 0 0.04. INR elevated at 2.84. BMP 1463. Patient admitted to ICU for further evaluation and treatment. When saw the patient in ER, patient on BiPAP. Increase anxiety noted. Heart rate around 120-130. Patient on IV amiodarone. IV Lasix 80 mg to be given. Medication for agitation also to be given. Repeat blood pressure improved was initially around 90/60 now in the 120 systolic. Blood gases show pH is 7.3, PCO2 51, PO2 of 69. Allergies iodine Allergy (Verified 04/26/21 04:26) Anaphylaxis/Hemorrhage/Hives Home medications list reviewed: Yes Home Medications: Ascorbic Acid [Vitamin C*] 500 mg PO DAILY 09/21/20 Aspirin [Aspirin EC] 81 mg PO DAILY 09/21/20 Atorvastatin Calcium [Lipitor*] 20 mg PO BEDTIME 09/21/20 Fenofibrate [Tricor*] 145 mg PO DAILY 09/21/20 Levothyroxine Sodium 25 mcg PO DAILY 04/02/21 Metoprolol Tartrate 25 mg PO DAILY 04/02/21 Potassium Chloride 20 meq PO DAILY 04/02/21 Cyanocobalamin (Vitamin B-12) [Vitamin B-12] 1,000 mcg PO DAILY #90 capsule 04/04/21 Ferrous Sulfate [Iron] 325 mg PO BID #60 tablet 04/04/21 Clopidogrel Bisulfate [Plavix] 75 mg PO DAILY 05/04/21 Furosemide [Lasix*] 40 mg PO DAILY tab 05/09/21 Metoprolol Tartrate [Lopressor*] 12.5 mg PO BID 6AM 6PM tab 05/09/21 predniSONE [Prednisone*] 20 mg PO DAILY 7 Days #7 tab 05/09/21 - Past Medical/Surgical History Diabetic: No -: Carotid artery disease -: HTN -: HLD -: History of breast cancer -: Hypothyroidism -: Atrial fibrillation -: CHF-diastolic -: Anemia of chronic disease -: Chronic renal disease stage III -: Carotid arterial disease -: mastectomy left side -: carotid endarterectomy -: back surgery lumbar fusions 2009 -: right shoulder rotator cuff repair -: hysterectomy -: colon resection -: cholecystectomy -: appendectomy, thyroidectomy, tonsillectomy Psychosocial/ Personal History: Retired, lives at home with family - Family History Mother -: Heart disease Father -: Diabetes, Cancer - Social History Smoking Status: Never smoker Alcohol use: No CD- Drugs: No Caffeine use: No Place of Residence: Home Review of Systems General: As per HPI Eyes: Unremarkable ENT: Unremarkable Respiratory: Shortness of Breath, SOB with Excertion, As per HPI Cardiovascular: Chest Pain, Edema, As per HPI Gastrointestinal: Unremarkable Genitourinary: Unremarkable Musculoskeletal: Unremarkable Integumentary: Unremarkable Neurological: As per HPI Lymphatics: Unremarkable Physical Examination - Studies Laboratory Data (last 24 hrs) 06/17/21 03:37: PT 34.2 H, INR 2.94 06/17/21 03:37: WBC 11.40 H, Hgb 8.2 L, Hct 26.4 L, Plt Count 473 H 06/17/21 03:37: Sodium 143, Potassium 4.6, BUN 16, Creatinine 1.41 H, Glucose 127 H, Total Bilirubin 0.6, AST 28, ALT 18, Alkaline Phosphatase 75 Assessment and Plan - Plan COVID: Negative Chest x-ray: Pending Physical Exam: GENERAL: Patient oriented. Currently on BiPAP. Increase anxiety noted. VITAL SIGNS: Reviewed HEENT: Head is normocephalic and atraumatic. Extraocular muscles are intact. Pu pils are equal, round, and reactive to light and accommodation. Nares appeared normal. Mouth is well hydrated and without lesions. Mucous membranes are moist. NECK: Supple. No carotid bruits. No lymphadenopathy or thyromegaly. LUNGS: Crackles to the bases. Decreased bilaterally. HEART: Irregular irregular with A. fib rate around 120-130. ABDOMEN: Soft, nontender, and nondistended. Positive bowel sounds. No hepatosplenomegaly was noted. EXTREMITIES: 1-2+ pain in the mid to the lower extremities up to the knees NEUROLOGIC: The patient is oriented to person, place and time. Strength and sensation are grossly intact. Face is symmetric. SKIN: Edema noted as above Impression: Dyspnea, edema to the lower extremity secondary to acute respiratory failure with hypoxia related to acute on chronic diastolic CHF complicated with atrial fibrillation with RVR Acute on chronic renal disease History of hypertension Elevated INR Hypothyroidism History of carotid arterial disease with carotid enterectomy GERD Hyperlipidemia History of breast cancer with mastectomy Anemia chronic disease. Plan: Dyspnea, edema to the lower extremity secondary to acute respiratory failure with hypoxia related to acute on chronic diastolic CHF complicated with atrial fibrillation with RVR: Patient admitted to ICU. Currently on BiPAP. Patient to be given Lasix 80 mg now then 40 mg IV 3 times a day. Central line has been placed by the ER. Will continue with IV amiodarone. Medication for agitation to be given. Continue to monitor closely. Will obtain echocardiogram. Hold off on anticoagulation therapy at this time due to elevated INR at 2.9. Blood pressure initially low. Now improved. Blood pressure remains low we will start IV dobutamine as recommended by cardiology. Case discussed with cardiology. Will consult pulmonology and nephrology due to acute on chronic renal disease. We will continue to monitor closely. If her condition declines patient may need to be intubated. We will continue to monitor closely. Will monitor the lab. Electrolyte protocol in place. Recheck chest x-ray. Acute on chronic renal disease: Nephrology consulted. Will continue to monitor closely. Patient will continue with Lasix. History of hypertension: Blood pressure initially low. Patient may require dobutamine to maintain MAP of 65. Elevated INR: INR 2.9. Hold anticoagulation therapy at this time. Will monitor closely. Hypothyroidism: We will check TSH and free T4. Continue levothyroxine 25 mcg daily. History of carotid arterial disease with carotid enterectomy: Continue aspirin 81 mg daily and Plavix 25 mg daily. GERD: Continue Pepcid Hyperlipidemia: We will check fasting lipid panel. Continue Lipitor 20 mg and fenofibrate 120 mg daily. History of breast cancer with mastectomy: No blood pressure is on the left side. Will monitor this closely. Anemia of chronic disease: Maintain hemoglobin above 8.0. Will check iron and B12 studies. Code Status: Full Code DVT prophylaxis: SCD Advanced Care Planning-30 minutes: Home at discharge Discharge Plan: Home Plan to discharge in: Greater than 2 days - Advance Directives Does patient have a Living Will: No Does patient have a Durable POA for Healthcare: Yes - Code Status/Comfort Care Code Status Assessed: Yes (Patient is full code) Time Spent Managing Pts Care (In Minutes): 55
--- NOTE | 2021-06-17 08:26 | RAD REPORT ---
EXAM DESCRIPTION: RAD - Chest Single View - 06/17/2021 3:24 am CLINICAL HISTORY: DYSPNEA COMPARISON: May 03 TECHNIQUE: AP portable chest image was obtained 06/17/2021 3:24 am . FINDINGS: No dense mass or consolidations seen. There is diffusely prominent interstitial opacificat ion increased in prominence over the prior study. Heart size is prominent but stable. Central vascula ture is fractionally increased. Small bilateral pleural effusions are suspected. No pneumothorax. No acute bony abnormality seen. No acute aortic findings suspected. IMPRESSION: CHF/volume overload is suspected. No new mass or consolidation.
[2021-06-17] MEDS ORDERED: RSI MEDICATION KIT IV ONE (09:00)
[2021-06-17] MEDS ORDERED: FUROSEMIDE 40 MG/4 ML VIAL IV SCH (09:00)
[2021-06-17] MEDS: propofoL 1,000 MG/100 ML VIAL IV PRN (09:25)
[2021-06-17] MEDS: MIDAZOLAM HCL 2 MG/2 ML INJ IV PRN (10:00)
--- NOTE | 2021-06-17 10:18 | RAD REPORT ---
EXAM DESCRIPTION: RAD - Chest Single View - 06/17/2021 9:52 am CLINICAL HISTORY: follow up intubation COMPARISON: June 17 TECHNIQUE: AP portable chest image was obtained 06/17/2021 9:52 am . FINDINGS: Endotracheal tube has been placed. Tip is top of the aortic arch approximately 4 cm above the ailyn. This is adequate positioning. NG tube has been placed. Tip is in the proximal stomach. Si de port is not clearly visualized but in close proximity to the GE junction. Interstitial and alveolar opacities are present with the alveolar opacification slightly worse in the lower right lung field compared earlier examination. Heart size within normal range for portable imaging. Upper lobe vasculature mildly prominent. No сергей surable pleural effusion and no pneumothorax. No acute bony abnormality seen. No acute aortic finding s suspected. IMPRESSION: Worsening alveolar infiltrate or alveolar edema since earlier examination. Endotracheal tube tip is top of the aortic arch approximately 4 cm above the ailyn, adequately posit ioned. NG/OG tube placement with tip in the proximal stomach. Side port is in proximity to the GE junction.
--- NOTE | 2021-06-17 11:00 | P.CNS ---
Date of Consult: 06/17/21 Reason for Consult: Respiratory failure Primary Care Provider: Dr. Ruano(He asked for Hospitalist to see); Cardiology- Dr. Shaver Chief Complaint: Shortness of breath History of Present Illness: Patient is 71 years of age with a history of diastolic heart failure atrial fibrillation metabolic syndrome admitted with worsening dyspnea became worse over the past 2 days has some lower extremity edema seeing a informatica mdm developer to increase the Lasix continued to get worse and appeared in the hospital and was subsequently intubated patient is on propofol on a ventilator very tachypneic and also hypoxic with an elevated rate Allergies iodine Allergy (Verified 04/26/21 04:26) Anaphylaxis/Hemorrhage/Hives Home Medications: Ascorbic Acid [Vitamin C*] 500 mg PO DAILY 09/21/20 Aspirin [Aspirin EC] 81 mg PO DAILY 09/21/20 Atorvastatin Calcium [Lipitor*] 20 mg PO BEDTIME 09/21/20 Fenofibrate [Tricor*] 145 mg PO DAILY 09/21/20 Levothyroxine Sodium 25 mcg PO DAILY 04/02/21 Metoprolol Tartrate 25 mg PO DAILY 04/02/21 Potassium Chloride 20 meq PO DAILY 04/02/21 Cyanocobalamin (Vitamin B-12) [Vitamin B-12] 1,000 mcg PO DAILY #90 capsule 04/04/21 Ferrous Sulfate [Iron] 325 mg PO BID #60 tablet 04/04/21 Clopidogrel Bisulfate [Plavix] 75 mg PO DAILY 05/04/21 Furosemide [Lasix*] 40 mg PO DAILY tab 05/09/21 Metoprolol Tartrate [Lopressor*] 12.5 mg PO BID 6AM 6PM tab 05/09/21 predniSONE [Prednisone*] 20 mg PO DAILY 7 Days #7 tab 05/09/21 - Past Medical/Surgical History Diabetic: No -: Carotid artery disease -: HTN -: HLD -: History of breast cancer -: Hypothyroidism -: Atrial fibrillation -: CHF-diastolic -: Anemia of chronic disease -: Chronic renal disease stage III -: Carotid arterial disease -: mastectomy left side -: carotid endarterectomy -: back surgery lumbar fusions 2009 -: right shoulder rotator cuff repair -: hysterectomy -: colon resection -: cholecystectomy -: appendectomy, thyroidectomy, tonsillectomy Psychosocial/ Personal History: Retired, lives at home with family - Family History Mother Medical History: Heart disease Father Medical History: Diabetes, Cancer - Social History Smoking Status: Unknown if ever smoked Alcohol use: No CD- Drugs: No Caffeine use: No Place of Residence: Home Review of Systems is unable to be obtained Physical Examination Temp Pulse Resp BP Pulse Ox 148 H 121/96 H 06/17/21 08:05 06/17/21 08:05 General: Unresponsive HEENT: Atraumatic Respiratory: Clear to auscultation bilaterally, Diminished Cardiovascular: Edema, Irregular heart rate/rhythm Gastrointestinal: Normal bowel sounds, Soft and benign Integumentary: No rashes Laboratory Data (last 24 hrs) 06/17/21 03:37: PT 34.2 H, INR 2.94 06/17/21 03:37: WBC 11.40 H, Hgb 8.2 L, Hct 26.4 L, Plt Count 473 H 06/17/21 03:37: Sodium 143, Potassium 4.6, BUN 16, Creatinine 1.41 H, Glucose 127 H, Total Bilirubin 0.6, AST 28, ALT 18, Alkaline Phosphatase 75 - Problems (1) Respiratory failure Current Visit: No Status: Acute Plan: Patient is 71 years of age with metabolic syndrome atrial fibrillation admitted to with worsening respiratory distress is now intubated patient has chronic renal failure is adequately anti coagulated/chest x-ray has worsened since admission most likely worsening congestive heart failure Labs reviewed continue with Lasix dobutamine discontinued ventilator settings reviewed tried to her patient on pressure control patient's left ventricular function was normal in April 2021 was likely she has underlying diastolic dysfunction Qualifiers: Chronicity: acute Respiratory failure complication: hypoxia and hypercapnia Qualified Code(s): J96.01 - Acute respiratory failure with hypoxia; J96.02 - Acute respiratory failure with hypercapnia
[2021-06-17] MEDS ORDERED: DIGOXIN 0.25 MG/ML AMP ONE (11:24)
[2021-06-17] MEDS ORDERED: FENTANYL CITR 100 MCG/2 ML ONE (11:28)
[2021-06-17] MEDS: FENTANYL CITR 100 MCG/2 ML IV PRN (11:42)
[2021-06-17] MEDS: DIGOXIN 0.25 MG/ML AMP IV ONE (11:42)
[2021-06-17] MEDS ORDERED: SUCCINYLCHOLINE 20 MG/ML (10 ML) IV ONE (12:26)
[2021-06-17] MEDS ORDERED: ETOMIDATE 20 MG/10 ML VIAL IV ONE (12:27)
[2021-06-17 12:48] LABS: Protime INR 2.93
[2021-06-17 12:49] LABS: Arterial Blood Carboxyhemoglob 1.4 % (0-1.5); Blood Gas Oxyhemoglobin 86.6 % (94-97); Blood O2 Saturation 88.6 % (92-98.5)
--- NOTE | 2021-06-17 12:49 | ECHO ---
HEIGHT: 5 ft 5 in WEIGHT: 214 lb 15.211 oz DATE OF STUDY: 06/17/[address]: Stone Ko DO 2-DIMENSIONAL: YES M.MODE: YES DOPPLER: YES COLOR FLOW: YES TDS: NO PORTABLE: YES DEFINITY: NO BUBBLE STUDY: NO DIAGNOSIS: ATRIAL FIBRILLATION CARDIAC HISTORY: CATHERIZATION: NO SURGERY: NO PROSTHETIC VALVE: NO PACEMAKER: NO MEASUREMENTS (cm) DIASTOLIC (NORMALS) SYSTOLIC (NORMALS) IVSd 1.1 (0.6-1.2) LA Diam 3.6 (1.9-4.0) LVEF 40-45% LVIDd 3.6 (3.5-5.7) LVIDs 2.7 (2.0-3.5) %FS 25% LVPWd 1.1 (0.6-1.2) Ao Diam 2.6 (2.0-3.7) 2 DIMENSIONAL ASSESSMENT: RIGHT ATRIUM: NORMAL LEFT ATRIUM: ENLARGED RIGHT VENTRICLE: NORMAL LEFT VENTRICLE: MILDLY DEPRESSED TRICUSPID VALVE: MITRAL VALVE: MTRAL ANNULAR CALCIFICATION PULMONIC VALVE: NORMAL AORTIC VALVE: NORMAL PERICARDIAL EFFUSION: MILD AORTIC ROOT: NORMAL LEFT VENTRICULAR WALL MOTION: MILD GLOBAL HYPEKINESIS DOPPLER/COLOR FLOW: SEE BELOW COMMENTS: MILDLY DEPRESSED LEFT VENTRICULAR EJECTION FRACTION 40-45%. MILD MITRAL AND TRICUSPID REGURGITATION. ATRIAL FIBRILLATION. TECHNOLOGIST: Stuart DELGADO
[2021-06-17 12:53] LABS: Arterial Blood Carboxyhemoglob 0.7 % (0-1.5); Blood Gas Oxyhemoglobin 85.6 % (94-97); Blood O2 Saturation 87.1 % (92-98.5)
[2021-06-17 12:55] LABS: Arterial Blood Carboxyhemoglob 1.1 % (0-1.5); Blood Gas Oxyhemoglobin 85.3 % (94-97)
[2021-06-17 12:59] LABS: Arterial Blood Carboxyhemoglob 1.5 % (0-1.5); Blood Gas Oxyhemoglobin 94.6 % (94-97); Blood O2 Saturation 96.7 % (92-98.5)
[2021-06-17] MEDS: HYDROMORPHONE HCL 2 MG/ML inj IV PRN (13:00)
[2021-06-17 13:01] LABS: Albumin 2.5 g/dL (3.4-5.0); Bilirubin Total 0.7 mg/dL (0.2-1.0); CKMB Creatine Kinase MB 2.4 ng/mL (1.0-3.6); Potassium 4.3 mmol/L (3.5-5.1); Protein, Total 5.9 g/dL (6.4-8.2); Troponin I 0.09 ng/mL (0.0-0.045)
[2021-06-17] MEDS ORDERED: NA CHLORIDE 0.9% 50 ML ONE (13:01)
[2021-06-17] MEDS ORDERED: HYDROMORPHONE HCL 2 MG/ML inj ONE (13:01)
[2021-06-17 13:57] LABS: Hematocrit 25.3 % (36.0-45.0)
--- NOTE | 2021-06-17 14:06 | P.CNS ---
Date of Consult: 06/17/21 Reason for Consult: ANDREA Requesting Physician: Stone Ko Primary Care Provider: Dr. Ruano(He asked for Hospitalist to see); Cardiology- Dr. Shaver Chief Complaint: Shortness of breath History of Present Illness: 71F w/ PMHx of Htn, HLD, afib, chronic diastolic HF, & COPD who p/w 2-day hx of worsening SOB & BLE edema, found to be in rapid afib w/ HR up to 150 bpm, hypotension, acidosis, & required intubation. She is received IV amiodarone & HR now improved. She is sedated & remains intubated currently. She is referred to Nephrology for ANDREA. Baseline SCr 1.0 as of 05/09/2021. Urinalysis unremark able except for +Ca oxalate crystals. No overt proteinuria. Urine chem showing secondary hyperaldo physiology. Repeat ABG w/ improved/stable acid-base status. Allergies iodine Allergy (Verified 04/26/21 04:26) Anaphylaxis/Hemorrhage/Hives Home Medications: Ascorbic Acid [Vitamin C*] 500 mg PO DAILY 09/21/20 Aspirin [Aspirin EC] 81 mg PO DAILY 09/21/20 Atorvastatin Calcium [Lipitor*] 20 mg PO BEDTIME 09/21/20 Fenofibrate [Tricor*] 145 mg PO DAILY 09/21/20 Levothyroxine Sodium 25 mcg PO DAILY 04/02/21 Metoprolol Tartrate 25 mg PO DAILY 04/02/21 Potassium Chloride 20 meq PO DAILY 04/02/21 Cyanocobalamin (Vitamin B-12) [Vitamin B-12] 1,000 mcg PO DAILY #90 capsule 04/04/21 Ferrous Sulfate [Iron] 325 mg PO BID #60 tablet 04/04/21 Clopidogrel Bisulfate [Plavix] 75 mg PO DAILY 05/04/21 Furosemide [Lasix*] 40 mg PO DAILY tab 05/09/21 Metoprolol Tartrate [Lopressor*] 12.5 mg PO BID 6AM 6PM tab 05/09/21 predniSONE [Prednisone*] 20 mg PO DAILY 7 Days #7 tab 05/09/21 - Past Medical/Surgical History Diabetic: No -: Carotid artery disease -: HTN -: HLD -: History of breast cancer -: Hypothyroidism -: Atrial fibrillation -: CHF-diastolic -: Anemia of chronic disease -: Chronic renal disease stage III -: Carotid arterial disease -: mastectomy left side -: carotid endarterectomy -: back surgery lumbar fusions 2009 -: right shoulder rotator cuff repair -: hysterectomy -: colon resection -: cholecystectomy -: appendectomy, thyroidectomy, tonsillectomy Psychosocial/ Personal History: Retired, lives at home with family - Family History Mother Medical History: Heart disease Father Medical History: Diabetes, Cancer - Social History Smoking Status: Unknown if ever smoked Alcohol use: No CD- Drugs: No Caffeine use: No Place of Residence: Home Review of Systems is unable to be obtained (d/t sedated state) Physical Examination Temp Pulse Resp BP Pulse Ox 148 H 22 H 121/96 H 95 06/17/21 08:05 06/17/21 13:00 06/17/21 08:05 06/17/21 13:00 General: Other (sedated) HEENT: Atraumatic, Normocephalic, Other (+ET tube) Neck: Supple Respiratory: Other (symmetric chest expansion) Cardiovascular: No rubs, No murmurs Gastrointestinal: Soft and benign, No guarding Musculoskeletal: No clubbing Integumentary: No warmth Neurological: Other (sedated) Urinary: Ambriz catheter External genitalia: Deferred Rectal: Deferred Laboratory Data (last 24 hrs) 06/17/21 03:37: PT 34.2 H, INR 2.94 06/17/21 03:37: WBC 11.40 H, Hgb 8.2 L, Hct 26.4 L, Plt Count 473 H 06/17/21 03:37: Sodium 143, Potassium 4.6, BUN 16, Creatinine 1.41 H, Glucose 127 H, Total Bilirubin 0.6, AST 28, ALT 18, Alkaline Phosphatase 75 Conclusions/Impression: # ANDREA 2/2 ischemic ATN 2/2 CRS1 from rapid afib Baseline SCr 1.0 as of 05/09/2021 SCr 1.4 on adm, currently at 1.6 Urinalysis unremarkable except for +Ca oxalate crystals No overt proteinuria CPK wnl, no rhabdo Urine chem on 06/17 showed secondary hyperaldo state D/t ATN, keep fluid balance net even per day HR control < 110 bpm Strict I/O Monitor renal panel # Hypotension likely 2/2 rapid afib Resolved Hx of Htn Monitor # Acute respi failure 2/2 Afib w/ RVR Hx of chronic diastolic HF +trop leak; BNP sig elevated TTE on 06/17/21 showed LVEF 40-45%, LA dilated HR better controlled w/ Amio gtt Cont IV lasix to lessen lung V/Q mismatch IV to PO rate control med per Cardiology # BLE edema On IV lasix, switch to po lasix upon hosp dc # Anemia Monitor H/H
[2021-06-17 14:36] LABS: Ferritin 51.2 ng/mL (8-388)
[2021-06-17 15:12] LABS: UR PROTEIN 22.5 mg/dL (<11.9); Urine Protein/Creatinine Ratio 0.18 ratio (<0.15)
[2021-06-17 15:20] LABS: Urine Appearance CLOUDY (Clear); Urine Bilirubin NEGATIVE (Negative); Urine Blood NEGATIVE (Negative); Urine Color DK YELLOW (Yellow); Urine Glucose NEGATIVE (Negative); Urine Protein NEGATIVE (Negative); Urine Specific Gravity 1.015 (1.005-1.030); Urine Urobilinogen 0.2 mg/dL (0.2-1.0)
[2021-06-17] MEDS ORDERED: ASPIRIN 81 MG CHEWABLE TABLET ONE (15:21)
[2021-06-17] MEDS ORDERED: THIAMINE HCL 100 MG TABLET ONE (15:21)
[2021-06-17] MEDS ORDERED: FOLIC ACID 1 MG TABLET ONE (15:21)
[2021-06-17] MEDS ORDERED: METHYLPREDNISOLONE 40 MG INJ ONE ×2 (15:22→18:49)
[2021-06-17] MEDS ORDERED: CLOPIDOGREL 75 MG TABLET ONE (15:22)
[2021-06-17 15:43] LABS: Urine Bacteria <20 /HPF (<20); Urine RBC <5 /HPF (NONE SEEN)
[2021-06-17 15:44] LABS: Calcium Oxalate Crystals- Ur MANY (NONE SEEN); Urine Mucus 3+ /HPF (NONE SEEN)
[2021-06-17] MEDS: ASPIRIN EC 81 MG TAB PO SCH (16:00)
[2021-06-17] MEDS: THIAMINE HCL 100 MG TABLET PO SCH (16:00)
[2021-06-17] MEDS: FENOFIBRATE 160 MG TAB PO SCH (16:00)
[2021-06-17] MEDS: METHYLPREDNISOLONE 40 MG INJ IV SCH ×2 (16:00→17:00)
[2021-06-17] MEDS: CLOPIDOGREL 75 MG TABLET PO SCH (16:00)
[2021-06-17] MEDS: FOLIC ACID 1 MG TABLET PO SCH (16:00)
[2021-06-17] MEDS: FUROSEMIDE 40 MG/4 ML VIAL IV SCH (17:00)
--- NOTE | 2021-06-17 17:02 | CON ---
Date of Consultation: 06/17/2021 Reason For Consultation: Acute respiratory failure of possible acute congestive heart failure. History Of Present Illness: A 71-year-old female with history of chronic atrial fibrillation, diasto lic heart failure, and hypertension presented with shortness of breath and lower extremity edema for the past two days with worsening orthopnea. The patient has been following up with Dr. Antonio tobar as an outpatient. The Lasix has been adjusted, however, did not do well with that, so she came in with decompensated heart failure. Past Medical History: Carotid stenosis, hypertension, dyslipidemia, diastolic heart failure, breast cancer, hypothyroidism, chronic atrial fibrillation, anemia, and chronic kidney disease. Medications: Refer to reconciliation sheet for detailed list. Allergies: IODINE. Family History: No premature coronary artery disease. Social History: She does not smoke or drink. Does not use any drugs. Review of Systems: All systems reviewed and are negative except as mentioned in the HPI. Physical Examination: Vital Signs: Reviewed. Head and Neck: Pupils are equal and reactive to light. Intact eye movements. No JVD. No cervical lymphadenopathy. Neck is supple. Thyroid is not enlarged. Lungs: Crackles in both lung spicer. No accessory muscle use or muscle retraction. She is intubate d. Heart: Irregularly irregular and tachycardic. Abdomen: Soft, nontender. Bowel sounds positive. No organomegaly. No masses or hernia. No rigidi ty or rebound. Extremities: A 3+ pitting edema bilaterally. No clubbing or cyanosis. Intact pulses. Skin: No rashes. Neurologic: Alert, awake, and oriented x3. No acute focal deficits appreciated. Investigations: Hemoglobin is 9.7 and white blood cell count is 11.4. Sodium 141, BUN is 19, and cr eatinine 1.6. NT-proBNP is 1462. Troponin 0.09. The chest x-ray, pulmonary edema. Assessment And Recommendations: 1.Pulmonary edema. Continue Lasix at 60 mg IV q.8 hours. Care for monitor BUN, creatinine, and emperatriz ctrolytes and definitely rule out other causes of the findings of the x-ray especially COVID-19 infec tion. Echo was reviewed. The patient is in atrial fibrillation with borderline low ejection fractio n and generalized global hypokinesis likely due to atrial fibrillation. 2.Atrial fibrillation with rapid ventricular response. Recommend amiodarone load intravenously and the patient had a problem with GI bleed with blood thinners in the past. Once the patient's clinical condition stabilizes and gets discharged, we will plan for left atrial appendage closure on her. 3.Acute respiratory failure and congestive heart failure, probably is part of the causes of her resp iratory failure. Lasix challenges above and please evaluate for other causes specially COVID-19 radha ismael and pneumonia. We will monitor the patient with you. SR/MODL Voice ID: [id number] Report ID: [id number]
[2021-06-17 18:02] LABS: CKMB Creatine Kinase MB 2.8 ng/mL (1.0-3.6)
[2021-06-17] MEDS ORDERED: ARFORMOTEROL TARTRATE 15 MCG/2 ML VIAL.NEB ONE (20:05)
[2021-06-17] MEDS: ARFORMOTEROL TARTRATE 15 MCG/2 ML VIAL.NEB NEB SCH (20:05)
[2021-06-17] MEDS: ATORVASTATIN 20 MG TAB PO SCH (21:00)
[2021-06-17] MEDS ORDERED: ATORVASTATIN 20 MG TAB ONE (21:51)
[2021-06-17] MEDS ORDERED: propofoL 1,000 MG/100 ML VIAL IV ONE (22:00)
[2021-06-18] MEDS: METHYLPREDNISOLONE 40 MG INJ IV SCH ×3 (01:00→16:46)
[2021-06-18] MEDS ORDERED: LORazepam 2 MG/ML VIAL ONE ×3 (01:40→20:41)
[2021-06-18] MEDS: LORazepam 2 MG/ML VIAL IV PRN ×3 (01:46→21:01)
[2021-06-18] MEDS ORDERED: MIDAZOLAM HCL 2 MG/2 ML INJ ONE (03:10)
[2021-06-18] MEDS ORDERED: HYDROMORPHONE HCL 2 MG/ML inj ONE ×2 (03:11→11:02)
[2021-06-18] MEDS: HYDROMORPHONE HCL 2 MG/ML inj IV PRN ×2 (03:25→11:09)
[2021-06-18] MEDS: MIDAZOLAM HCL 2 MG/2 ML INJ IV PRN (03:26)
[2021-06-18] MEDS ORDERED: METHYLPREDNISOLONE 40 MG INJ ONE ×3 (03:41→15:31)
[2021-06-18] MEDS ORDERED: FUROSEMIDE 100 MG/10 ML VIAL IV ONE ×3 (03:41→15:32)
[2021-06-18] MEDS: FUROSEMIDE 40 MG/4 ML VIAL IV SCH ×3 (03:45→16:46)
[2021-06-18 05:41] LABS: Absolute Lymphocytes (CBC) 1.1 K/uL (0.7-4.9); Basophils % 0.3 % (0-1.3); Hematocrit 25.1 % (36.0-45.0); Lymphocytes % 9.3 % (15.3-44.8); MPV 7.7 fL (7.6-11.3); RBC Red Blood Cell Count 2.97 M/uL (3.86-4.86)
[2021-06-18 05:47] LABS: Protime INR 2.29
--- NOTE | 2021-06-18 05:58 | P.PN ---
Subjective Date of Service: 06/18/21 Primary Care Provider: Dr. Ruano(He asked for Hospitalist to see); Cardiology- Dr. Shaver Chief Complaint: Shortness of breath Subjective: Improving (Patient remains intubated. Patient remains in atrial fibrillation. Rate much improved now around 100-120.) Physical Examination - Vital Signs Temperature: 97.8 F Blood Pressure: 112/81 Pulse: 117 Respirations: 20 Pulse Ox (%): 97 Assessment & Plan Discharge Plan: Home Plan to discharge in: Greater than 2 days Physician Review Additional Text: COVID: Negative Initial Chest x-ray: COMPARISON: May 03 TECHNIQUE: AP portable chest image was obtained 06/17/2021 3:24 am . FINDINGS: No dense mass or consolidations seen. There is diffusely prominent interstitial opacification increased in prominence over the prior study. Heart size is prominent but stable. Central vasculature is fractionally increased. Small bilateral pleural effusions are suspected. No pneumothorax. No acute bony abnormality seen. No acute aortic findings suspected. IMPRESSION: CHF/volume overload is suspected. No new mass or consolidation. ECHO: DIASTOLIC (NORMALS) SYSTOLIC (NORMALS) IVSd 1.1 (0.6-1.2) LA Diam 3.6 (1.9-4.0) LVEF 40-45% LVIDd 3.6 (3.5-5.7) LVIDs 2.7 (2.0-3.5) %FS 25% LVPWd 1.1 (0.6-1.2) Ao Diam 2.6 (2.0-3.7) 2 DIMENSIONAL ASSESSMENT: RIGHT ATRIUM: NORMAL LEFT ATRIUM: ENLARGED RIGHT VENTRICLE: NORMAL LEFT VENTRICLE: MILDLY DEPRESSED TRICUSPID VALVE: MITRAL VALVE: MTRAL ANNULAR CALCIFICATION PULMONIC VALVE: NORMAL AORTIC VALVE: NORMAL PERICARDIAL EFFUSION: MILD AORTIC ROOT: NORMAL LEFT VENTRICULAR WALL MOTION: MILD GLOBAL HYPEKINESIS DOPPLER/COLOR FLOW: SEE BELOW COMMENTS: MILDLY DEPRESSED LEFT VENTRICULAR EJECTION FRACTION 40-45%. MILD MITRAL AND TRICUSPID REGURGITATION. ATRIAL FIBRILLATION. Follow up CXR 06/18/2021: COMPARISON: Chest Single View dated 06/17/2021; Chest Single View dated 06/17/2021; Chest Single View dated 05/03/2021; Abdomen 1 View (KUB) dated 04/30/2021 FINDINGS: Lines: Endotracheal tube just above the aortic arch by less than 1 cm. This is in satisfactory position. Enteric tube below the diaphragm. Lungs: Widespread bilateral airspace disease. There is increasing left perihilar opacities. Pleural: Bilateral pleural effusions. Cardiac: Cardiomegaly. Bones: No acute fractures. IMPRESSION: Widespread bilateral airspace disease consistent with pulmonary edema and is probably little changed when taking into account differences in p ositioning compared with the 06/17/2021 radiograph. Physical Exam: GENERAL: Patient remains intubated. Slight agitation VITAL SIGNS: Reviewed HEENT: Head is normocephalic and atraumatic. Extraocular muscles are intact. Pupils are equal, round, and reactive to light and accommodation. Nares appeared normal. Mouth is well hydrated and without lesions. Mucous membranes are moist. NECK: Supple. No carotid bruits. No lymphadenopathy or thyromegaly. LUNGS: Decreased at the bases. Patient intubated. Currently on the ventilator. HEART: Irregular irregular with A. fib rate around 100-110 ABDOMEN: Soft, nontender, and nondistended. Positive bowel sounds. No hepatosplenomegaly was noted. EXTREMITIES: Edema to the lower extremities improved. NEUROLOGIC: The patient is oriented to person, place and time. Strength and sensation are grossly intact. Face is symmetric. SKIN: Edema noted as above Ambriz catheter in place. Impression: Dyspnea, edema to the lower extremity secondary to acute respiratory failure with hypoxia related to acute on chronic diastolic CHF complicated with atrial fibrillation with RVR and COPD exacerbation Acute on chronic renal disease stage III History of hypertension Elevated INR Hypothyroidism History of carotid arterial disease with carotid enterectomy GERD Hyperlipidemia History of breast cancer with mastectomy Anemia chronic disease with iron def. anemia Fatty liver Plan: Dyspnea, edema to the lower extremity secondary to acute respiratory failure with hypoxia related to acute on chronic diastolic CHF complicated with atrial fibrillation with RVR and COPD exacerbation: Patient remains intubated at this time. Case discussed at length with pulmonology, cardiology and nephrology yesterday. Patient remains intubated. Continue to wean off ventilator. Continue IV Lasix 60 mg IV 3 times a day. Patient remains on IV amiodarone. Cardiology considering cardioversion if no significant improvement. Continue COPD medicationSolu-Medrol, Brovana. Will check procalcitonin and obtain blood cultures. Will discuss further with pulmonology as cardiology suspects acute respiratory failure may be more respiratory related instead of cardiology related. Continue to monitor chest x-ray. Continue with above plan of care. Acute on chronic renal disease stage III: Case discussed at length with nephrology yesterday. Continue with Lasix. History of hypertension: Blood pressures remained stable at this time. Consider metoprolol if blood pressure remains elevated. Elevated INR: INR remains elevated but improved at 2.2. No anticoagulation therapy at this time. Patient with history of fatty liver disease. Liver function test within normal range. Still no etiology of why INR elevated. Case discussed at length with nephrology, cardiology and nephrology. Will check liver ultrasound. Hypothyroidism: Continue levothyroxine 25 mcg daily. History of carotid arterial disease with carotid enterectomy: Continue aspirin 81 mg daily and Plavix 25 mg daily. GERD: Continue Protonix 40 mg daily Hyperlipidemia: LDL 50. Continue Lipitor 20 mg and fenofibrate 120 mg daily. History of breast cancer with mastectomy: No blood pressure is on the left side. Will monitor this closely. Anemia of chronic disease with iron deficiency anemia: Maintain hemoglobin above 8.0. Iron studies reviewed. Will start IV iron. Fatty liver: Will check liver ultrasound Code Status: Full Code DVT prophylaxis: SCD Advanced Care Planning-30 minutes: Home at discharge Time Spent Managing Pts Care (In Minutes): 55
[2021-06-18 06:25] LABS: ALT/SGPT 17 U/L (12-78); AST/SGOT 28 U/L (15-37); Albumin 2.5 g/dL (3.4-5.0); Alkaline Phosphatase 69 U/L (45-117); BUN Blood Urea Nitrogen 28 mg/dL (7-18); Bicarbonate 25 mmol/L (21-32); Bilirubin Total 0.7 mg/dL (0.2-1.0); Glucose Level 135 mg/dL (74-106); HDL Cholesterol 44 mg/dL (40-60); LDL Cholesterol, Calculated 50 (<130); Magnesium 2.1 mg/dL (1.8-2.4); Phosphorus 4.9 mg/dL (2.5-4.9); Protein, Total 6.1 g/dL (6.4-8.2); Sodium Level 140 mmol/L (136-145); Transferrin 273 mg/dL (200-360)
[2021-06-18 06:26] LABS: Ferritin 60.2 ng/mL (8-388)
[2021-06-18] MEDS: PANTOPRAZOLE 40MG TABLET PO SCH (06:30)
[2021-06-18] MEDS ORDERED: PANTOPRAZOLE 40MG TABLET PO ONE (06:44)
[2021-06-18 08:13] LABS: Anisocytosis SLIGHT; Blood Morphology Comment NOTED (NOT SEEN); Platelet Estimate INCR
[2021-06-18] MEDS ORDERED: THIAMINE HCL 100 MG TABLET ONE (08:30)
[2021-06-18] MEDS ORDERED: CLOPIDOGREL 75 MG TABLET ONE (08:31)
[2021-06-18] MEDS ORDERED: ASPIRIN EC 81 MG TAB PO ONE (08:31)
[2021-06-18] MEDS ORDERED: FOLIC ACID 1 MG TABLET ONE (08:31)
[2021-06-18] MEDS: FOLIC ACID 1 MG TABLET PO SCH (08:34)
[2021-06-18] MEDS: ASPIRIN EC 81 MG TAB PO SCH (08:34)
[2021-06-18] MEDS: LEVOTHYROXINE SOD 0.025 MG TAB PO SCH (08:34)
[2021-06-18] MEDS: FENOFIBRATE 160 MG TAB PO SCH (08:34)
[2021-06-18] MEDS: THIAMINE HCL 100 MG TABLET PO SCH (08:35)
[2021-06-18] MEDS: CLOPIDOGREL 75 MG TABLET PO SCH (08:35)
[2021-06-18] MEDS ORDERED: ARFORMOTEROL TARTRATE 15 MCG/2 ML VIAL.NEB ONE ×2 (08:37→19:57)
[2021-06-18] MEDS: ARFORMOTEROL TARTRATE 15 MCG/2 ML VIAL.NEB NEB SCH ×2 (08:37→19:56)
[2021-06-18] MEDS ORDERED: FUROSEMIDE 40 MG/4 ML VIAL ONE (08:37)
--- NOTE | 2021-06-18 09:34 | RAD REPORT ---
EXAM DESCRIPTION: RAD - Chest Single View - 06/18/2021 8:35 am CLINICAL HISTORY: follow up CHF COMPARISON: Chest Single View dated 06/17/2021; Chest Single View dated 06/17/2021; Chest Single Vie w dated 05/03/2021; Abdomen 1 View (KUB) dated 04/30/2021 FINDINGS: Lines: Endotracheal tube just above the aortic arch by less than 1 cm. This is in satisfac tory position. Enteric tube below the diaphragm. Lungs: Widespread bilateral airspace disease. There is increasing left perihilar opacities. Pleural: Bilateral pleural effusions. Cardiac: Cardiomegaly. Bones: No acute fractures. Other: IMPRESSION: Widespread bilateral airspace disease consistent with pulmonary edema and is probably li ttle changed when taking into account differences in positioning compared with the 06/17/2021 radiogr aph.
[2021-06-18] MEDS: propofoL 1,000 MG/100 ML VIAL IV PRN ×2 (09:51→13:52)
--- NOTE | 2021-06-18 10:07 | P.PN ---
Subjective Date of Service: 06/18/21 Primary Care Provider: Dr. Ruano(He asked for Hospitalist to see); Cardiology- Dr. Shaver Chief Complaint: Respiratory failure Subjective: Improving ( patient is stable currently on propofol rate controlled on amiodarone chest x-ray has improved oxygenation has also improved) Review of Systems is unable to be obtained Physical Examination - Vital Signs Temperature: 98.1 F Blood Pressure: 100/65 Pulse: 102 Respirations: 25 Pulse Ox (%): 96 - Physical Exam General: Unresponsive Respiratory: Crackles/rales Cardiovascular: Edema, Irregular heart rate/rhythm Assessment & Plan - Problems (Diagnosis) (1) Respiratory failure Current Visit: No Status: Acute Plan: respiratory failure patient is improving plan to wean off the propofol on the ventilator patient is mildly anemic chest x-ray labs reviewed Qualifiers: Qualified Code(s): J96.01 - Acute respiratory failure with hypoxia; J96.02 - Acute respiratory failure with hypercapnia Physician Review Additional Text: COVID: Negative Chest x-ray: Pending Physical Exam: GENERAL: Patient oriented. Currently on BiPAP. Increase anxiety noted. VITAL SIGNS: Reviewed HEENT: Head is normocephalic and atraumatic. Extraocular muscles are intact. Pupils are equal, round, and reactive to light and accommodation. Nares appeared normal. Mouth is well hydrated and without lesions. Mucous membranes are moist. NECK: Supple. No carotid bruits. No lymphadenopathy or thyromegaly. LUNGS: Crackles to the bases. Decreased bilaterally. HEART: Irregular irregular with A. fib rate around 120-130. ABDOMEN: Soft, nontender, and nondistended. Positive bowel sounds. No hepatosplenomegaly was noted. EXTREMITIES: 1-2+ pain in the mid to the lower extremities up to the knees NEUROLOGIC: The patient is oriented to person, place and time. Strength and sensation are grossly intact. Face is symmetric. SKIN: Edema noted as above Impression: Dyspnea, edema to the lower extremity secondary to acute respiratory failure with hypoxia related to acute on chronic diastolic CHF complicated with atrial fibrillation with RVR and COPD exacerbation Acute on chronic renal disease History of hypertension Elevated INR Hypothyroidism History of carotid arterial disease with carotid enterectomy GERD Hyperlipidemia History of breast cancer with mastectomy Anemia chronic disease. Plan: Dyspnea, edema to the lower extremity secondary to acute respiratory failure with hypoxia related to acute on chronic diastolic CHF complicated with atrial fibrillation with RVR and COPD exacerbation: Patient admitted to ICU. Currently on BiPAP. Patient to be given Lasix 80 mg now then 40 mg IV 3 times a day. Central line has been placed by the ER. Will continue with IV amiodarone. Medication for agitation to be given. Continue to monitor closely. Will obtain echocardiogram. Hold off on anticoagulation therapy at this time due to elevated INR at 2.9. Blood pressure initially low. Now improved. Blood pressure remains low we will start IV dobutamine as recommended by cardiology. Case discussed with cardiology. Will consult pulmonology and nephrology due to acute on chronic renal disease. We will continue to monitor closely. If her condition declines patient may need to be intubated. We will continue to monitor closely. Will monitor the lab. Electrolyte protocol in place. Recheck chest x-ray. Acute on chronic renal disease: Nephrology consulted. Will continue to monitor closely. Patient will continue with Lasix. History of hypertension: Blood pressure initially low. Patient may require dobutamine to maintain MAP of 65. Elevated INR: INR 2.9. Hold anticoagulation therapy at this time. Will monitor closely. Hypothyroidism: We will check TSH and free T4. Continue levothyroxine 25 mcg daily. History of carotid arterial disease with carotid enterectomy: Continue aspirin 81 mg daily and Plavix 25 mg daily. GERD: Continue Pepcid Hyperlipidemia: We will check fasting lipid panel. Continue Lipitor 20 mg and fenofibrate 120 mg daily. History of breast cancer with mastectomy: No blood pressure is on the left side. Will monitor this closely. Anemia of chronic disease: Maintain hemoglobin above 8.0. Will check iron and B12 studies. Code Status: Full Code DVT prophylaxis: SCD Advanced Care Planning-30 minutes: Home at discharge
[2021-06-18] MEDS ORDERED: ONDANSETRON 4 MG/2 ML VIAL ONE (11:02)
[2021-06-18] MEDS: ONDANSETRON 4 MG/2 ML VIAL IV PRN (11:10)
[2021-06-18] MEDS ORDERED: propofoL 200 MG/20 ML VIAL IV ONE (11:11)
[2021-06-18] MEDS ORDERED: propofoL 1,000 MG/100 ML VIAL IV ONE (13:50)
[2021-06-18 16:36] LABS: Arterial Blood Carboxyhemoglob 1.6 % (0-1.5); Blood Gas Oxyhemoglobin 87.4 % (94-97); Blood O2 Saturation 89.5 % (92-98.5)
--- NOTE | 2021-06-18 18:35 | PN ---
Date of Progress Note: 06/18/2021 Subjective: Seen by bedside. Still intubated and sedated. Physical Examination: Vital Signs: Temperature is 97.7, pulse 94, breathing at 16, blood pressure 102/78, saturating 100%. General: Pleasant elderly female, in no distress. Head and Neck: Pupils are equal, reactive to light. There is no JVD. Neck: Supple. Lungs: Rhonchi bilaterally with improvement. Heart: Irregularly irregular. No extra sounds. Abdomen: Soft, nontender. Bowel sounds positive. No organomegaly. No masses or hernia. No rigidi ty or rebound. Extremities: Trace edema bilaterally. No clubbing or cyanosis. Skin: No rashes. Neuro: She is sedated on the vent. Investigations: Creatinine is 1.67, slightly higher than before and troponin was 0.09. Assessment And Recommendations: 1.Acute respiratory failure, which is in part due to acute congestive heart failure. I believe that this patient is euvolemic at the present time. I reviewed her echo yesterday and filling pressures are not elevated anymore. I recommend to back off on the Lasix to avoid further kidney failure and m onitor urine output carefully and BUN, creatinine and electrolytes. 2.Atrial fibrillation exacerbating factor for her condition. This is getting much better . Heart rate is below 100. Continue amiodarone on the vent and try to introduce beta-reno once the blood pressure allows and continue current vent management as per Pulmonary. SR/MODL Voice ID: [id number] Report ID: [id number]
[2021-06-18] MEDS ORDERED: ATORVASTATIN 20 MG TAB ONE (20:10)
[2021-06-18] MEDS ORDERED: AMIODARONE IN DEXTROSE,ISO-OSM 360 MG/200 ML BAG IV ONE (20:40)
[2021-06-18] MEDS: ATORVASTATIN 20 MG TAB PO SCH (20:59)
[2021-06-18] MEDS: AMIODARONE HCL 900 MG in Dextrose 5%-Water 482 ML IV SCH (21:00)
--- NOTE | 2021-06-18 23:44 | PN ---
Date of Progress Note: 06/18/2021 Chief Complaint: Congestive heart failure, cardiorenal syndrome, acute on chronic kidney injury. Subjective: Patient has history of chronic kidney disease stage 3. Baseline creatinine level is 1.0. The patient was found to have worsening of the renal function. She has nonoliguric acute kidney injury. She has history of obesity, breast cancer, atrial fibrillation, carotid artery disease, stage 3 chronic kidney disease, congestive heart failure with diastolic dysfunction. ROS : unobtainable due to patient's condition Objective: Lungs: Diminished breath sounds at bases. Few crackles. Heart: S1, S2. Abdomen: Soft. Extremities: Edema present. Laboratory Data: Creatinine 1.41, glucose 127 and potassium 4.6. Impression And Plan: 1. Acute on chronic kidney injury due to cardiorenal syndrome with rapid atrial fibrillation, ischemic acute tubular necrosis. Baseline creatinine level back in May 2021 was 1.0, currently is 1.6. Urinalysis was unremarkable except calcium oxalate crystals. There is no significant proteinuria and CPK is within normal limits with no rhabdomyolysis. Patient will continue diuretics for congestive heart failure. Workup showed diminished left ventricular ejection fraction and the left atrium dilated. The patient will continue Lasix for congestive heart failure with pulmonary edema. Monitor electrolytes and adjust Lasix dose according to fluid balance. 2. Hypertension, currently patient is recovering from hypotensive episode, likely hypotension was due to atrial fibrillation. Monitor blood pressure, resume blood pressure medications according to blood pressure log. KOURTNEY/MARK Voice ID: [id number] Report ID: [id number] JOSE
[2021-06-19] MEDS: FUROSEMIDE 40 MG/4 ML VIAL IV SCH ×2 (01:00→03:08)
[2021-06-19] MEDS: METHYLPREDNISOLONE 40 MG INJ IV SCH ×3 (01:06→17:01)
[2021-06-19] MEDS ORDERED: METHYLPREDNISOLONE 40 MG INJ ONE ×3 (01:06→16:31)
[2021-06-19] MEDS ORDERED: LORazepam 2 MG/ML VIAL ONE ×2 (01:10→05:19)
[2021-06-19] MEDS: LORazepam 2 MG/ML VIAL IV PRN ×2 (01:11→05:21)
[2021-06-19] MEDS: MIDAZOLAM HCL 2 MG/2 ML INJ IV PRN ×2 (02:10→07:35)
[2021-06-19] MEDS ORDERED: MIDAZOLAM HCL 2 MG/2 ML INJ ONE ×2 (02:10→07:27)
[2021-06-19] MEDS ORDERED: FUROSEMIDE 40 MG/4 ML VIAL ONE ×3 (03:06→16:31)
[2021-06-19] MEDS ORDERED: FUROSEMIDE 20 MG/ 2ML VIAL ONE (03:11)
[2021-06-19] MEDS: HYDROMORPHONE HCL 2 MG/ML inj IV PRN ×2 (03:30→22:41)
[2021-06-19] MEDS ORDERED: HYDROMORPHONE HCL 2 MG/ML inj ONE ×2 (03:38→22:40)
[2021-06-19 05:07] LABS: Absolute Lymphocytes (CBC) 0.9 K/uL (0.7-4.9); Basophils % 0.3 % (0-1.3); Hematocrit 25.6 % (36.0-45.0); Lymphocytes % 6.9 % (15.3-44.8); MPV 7.8 fL (7.6-11.3)
[2021-06-19 05:09] LABS: Protime INR 1.57
[2021-06-19 05:17] LABS: Albumin 2.4 g/dL (3.4-5.0); Bilirubin Total 0.9 mg/dL (0.2-1.0); Magnesium 2.3 mg/dL (1.8-2.4); Potassium 4.4 mmol/L (3.5-5.1); Protein, Total 6.2 g/dL (6.4-8.2)
[2021-06-19] MEDS ORDERED: PANTOPRAZOLE 40MG TABLET PO ONE (05:19)
[2021-06-19] MEDS: LEVOTHYROXINE SOD 0.025 MG TAB PO SCH (05:21)
[2021-06-19] MEDS: PANTOPRAZOLE 40MG TABLET PO SCH (05:21)
[2021-06-19 06:11] LABS: Arterial Blood Carboxyhemoglob 1.5 % (0-1.5); Blood Gas Oxyhemoglobin 85.3 % (94-97); Blood O2 Saturation 87.3 % (92-98.5)
--- NOTE | 2021-06-19 06:38 | P.PN ---
Subjective Date of Service: 06/19/21 Primary Care Provider: Dr. Ruano(He asked for Hospitalist to see); Cardiology- Dr. Shaver Chief Complaint: Shortness of breath Subjective: Other (Overall stable. Patient remains intubated. Patient in atrial fibrillation. Rate around 100-120.) Physical Examination - Vital Signs Temperature: 97.9 F Blood Pressure: 107/74 Pulse: 120 Respirations: 16 Pulse Ox (%): 93 Assessment & Plan Discharge Plan: Home Plan to discharge in: Greater than 2 days Physician Review Additional Text: COVID: Negative Initial Chest x-ray: COMPARISON: May 03 TECHNIQUE: AP portable chest image was obtained 06/17/2021 3:24 am . FINDINGS: No dense mass or consolidations seen. There is diffusely prominent interstitial opacification increased in prominence over the prior study. Heart size is prominent but stable. Central vasculature is fractionally increased. Small bilateral pleural effusions are suspected. No pneumothorax. No acute bony abnormality seen. No acute aortic findings suspected. IMPRESSION: CHF/volume overload is suspected. No new mass or consolidation. ECHO: DIASTOLIC (NORMALS) SYSTOLIC (NORMALS) IVSd 1.1 (0.6-1.2) LA Diam 3.6 (1.9-4.0) LVEF 40-45% LVIDd 3.6 (3.5-5.7) LVIDs 2.7 (2.0-3.5) %FS 25% LVPWd 1.1 (0.6-1.2) Ao Diam 2.6 (2.0-3.7) 2 DIMENSIONAL ASSESSMENT: RIGHT ATRIUM: NORMAL LEFT ATRIUM: ENLARGED RIGHT VENTRICLE: NORMAL LEFT VENTRICLE: MILDLY DEPRESSED TRICUSPID VALVE: MITRAL VALVE: MTRAL ANNULAR CALCIFICATION PULMONIC VALVE: NORMAL AORTIC VALVE: NORMAL PERICARDIAL EFFUSION: MILD AORTIC ROOT: NORMAL LEFT VENTRICULAR WALL MOTION: MILD GLOBAL HYPEKINESIS DOPPLER/COLOR FLOW: SEE BELOW COMMENTS: MILDLY DEPRESSED LEFT VENTRICULAR EJECTION FRACTION 40-45%. MILD MITRAL AND TRICUSPID REGURGITATION. ATRIAL FIBRILLATION. Follow up CXR 06/19/2021: COMPARISON: June 18June 17 TECHNIQUE: AP portable chest image was obtained 06/19/2021 6:20 am . FINDINGS: ET tube is in place with the tip top of the aortic arch 3 cm above the ailyn. This is well positioned. NG/OG tube in place extending well below the diaphragm, off the field of view. No new tube or line identified. Bilateral airspace opacification is present in the mid and lower lung spicer. When cereal imaging is compared, patient has shown overall improvement. No progression has occurred. Cardiomegaly remains but is slightly improved. Upper lobe vasculature shows a decrease in prominence but not full resolution. No pneumothorax present. No enlarging pleural effusion. IMPRESSION: CHF/volume overload pattern shows improvement on serial review of imaging. Significant CHF findings remain. Physical Exam: GENERAL: Patient remains intubated. Slight agitation noted. VITAL SIGNS: Reviewed. HEENT: Neck supple LUNGS: Decreased at the bases. Patient intubated. Currently on the ventilator. HEART: Irregular irregular with A. fib rate around 100-120 ABDOMEN: Soft, nontender, and nondistended. Positive bowel sounds. No hepatosplenomegaly was noted. EXTREMITIES: Edema to the lower extremities improved. NEUROLOGIC: Patient responds to pain and voice. SKIN: Edema to the lower extremities improved Ambriz catheter in place. Impression: Dyspnea, edema to the lower extremity secondary to acute respiratory failure with hypoxia related to acute on chronic diastolic CHF complicated with atrial fibrillation with RVR and COPD exacerbation Acute on chronic renal disease stage III History of hypertension Elevated INR Hypothyroidism History of carotid arterial disease with carotid enterectomy GERD Hyperlipidemia History of breast cancer with mastectomy Anemia chronic disease with iron def. anemia Fatty liver Plan: Dyspnea, edema to the lower extremity secondary to acute respiratory failure with hypoxia related to acute on chronic diastolic CHF complicated with atrial fibrillation with RVR and COPD exacerbation: Patient remains intubated at this time. Will decrease IV Lasix to 20 mg IV twice daily. Nephrology has reinitiated IV fluids. Patient remains on IV amiodarone. Patient remains on IV Solu-Medrol and COPD medication. Pulmonology plans to continue to wean off ventilator. Cardiology plans to wean off IV amiodarone and consider changing to beta-reno. No cardioversion is planned. Renal function more compromised today. Will discuss further with cardiology, pulmonology and nephrology. Blood cultures pending so far negative. Recheck chest x-ray shows improvement. I will turn to service over to the hospitalist team tomorrow. I will go over plan of care with him. Acute on chronic renal disease stage III: Renal function worse. Will decrease Lasix to 20 mg IV twice daily. IV fluids reinitiated by nephrology. Chest x- ray still shows improvement. Continue to monitor chest x-ray. Await further recommendations from nephrology. History of hypertension: Blood pressures remained stable at this time. If blood pressure elevated consider transitioning to metoprolol. Elevated INR: Initial INR elevated at 2.9. INR improved to 1.5. Currently not on anticoagulation at this time due to initial elevated INR. Will discuss with pulmonology about anticoagulation but will need to be careful due to her anemia and iron deficiency. Will start IV iron. Will monitor CBC and PTT/PT and INR. Will discuss with nephrology, cardiology and nephrology. Will need to verify home medication. It is suspected patient has been on Xarelto. Will need to confirm and reconcile home medications. Hypothyroidism: Continue levothyroxine 25 mcg daily. History of carotid arterial disease with carotid enterectomy: Continue aspirin 81 mg daily and Plavix 75 mg daily. GERD: Continue Protonix 40 mg daily Hyperlipidemia: LDL 50. Continue Lipitor 20 mg and Tricor 160 mg daily. History of breast cancer with mastectomy: No blood pressure is on the left side. Will monitor this closely. Anemia of chronic disease with iron deficiency anemia: Maintain hemoglobin above 8.0. Iron studies reviewed. Will start IV iron. Will monitor CBC. Fatty liver: Will check liver ultrasound. Will check hepatitis and HIV. Code Status: Full Code DVT prophylaxis: SCD Advanced Care Planning-30 minutes: Home at discharge Time Spent Managing Pts Care (In Minutes): 55
--- NOTE | 2021-06-19 07:22 | RAD REPORT ---
EXAM DESCRIPTION: RAD - Chest Single View - 06/19/2021 6:20 am CLINICAL HISTORY: CHF COMPARISON: June 18, June 17 TECHNIQUE: AP portable chest image was obtained 06/19/2021 6:20 am . FINDINGS: ET tube is in place with the tip top of the aortic arch 3 cm above the ailyn. This is wel l positioned. NG/OG tube in place extending well below the diaphragm, off the field of view. No new t ube or line identified. Bilateral airspace opacification is present in the mid and lower lung spicer. When cereal imaging is compared, patient has shown overall improvement. No progression has occurred. Cardiomegaly remains bu t is slightly improved. Upper lobe vasculature shows a decrease in prominence but not full resolution . No pneumothorax present. No enlarging pleural effusion. IMPRESSION: CHF/volume overload pattern shows improvement on serial review of imaging. Significant C HF findings remain.
[2021-06-19] MEDS ORDERED: FOLIC ACID 1 MG TABLET ONE (07:25)
[2021-06-19] MEDS ORDERED: THIAMINE HCL 100 MG TABLET ONE (07:25)
[2021-06-19] MEDS ORDERED: CLOPIDOGREL 75 MG TABLET ONE (07:26)
[2021-06-19] MEDS ORDERED: ASPIRIN EC 81 MG TAB PO ONE (07:26)
[2021-06-19] MEDS ORDERED: ARFORMOTEROL TARTRATE 15 MCG/2 ML VIAL.NEB ONE ×2 (08:30→19:38)
[2021-06-19] MEDS: ASPIRIN EC 81 MG TAB PO SCH (08:30)
[2021-06-19] MEDS: FENOFIBRATE 160 MG TAB PO SCH (08:30)
[2021-06-19] MEDS: CLOPIDOGREL 75 MG TABLET PO SCH (08:30)
[2021-06-19] MEDS: FOLIC ACID 1 MG TABLET PO SCH (08:30)
[2021-06-19] MEDS: THIAMINE HCL 100 MG TABLET PO SCH (08:30)
[2021-06-19] MEDS: ARFORMOTEROL TARTRATE 15 MCG/2 ML VIAL.NEB NEB SCH ×2 (08:31→19:49)
[2021-06-19] MEDS ORDERED: propofoL 1,000 MG/100 ML VIAL IV ONE ×2 (08:37→18:50)
[2021-06-19] MEDS: propofoL 1,000 MG/100 ML VIAL IV PRN ×2 (08:43→19:00)
[2021-06-19] MEDS ORDERED: FUROSEMIDE 40 MG/4 ML VIAL IV SCH ×3 (09:00→21:00)
[2021-06-19] MEDS ORDERED: NA CHLORIDE 0.9% 1,000 ML ONE (10:57)
[2021-06-19] MEDS ORDERED: NA CHLORIDE 0.9% 1,000 ML IV SCH (11:00)
[2021-06-19] MEDS ORDERED: ALBUMIN HUMAN 25% 100 ML IV ONE ×2 (11:27→19:59)
[2021-06-19] MEDS ORDERED: ALBUMIN HUMAN 25% 50 ML IV ONE ×2 (11:59→16:31)
--- NOTE | 2021-06-19 12:19 | RAD REPORT ---
EXAM DESCRIPTION: US - Liver Only - 06/19/2021 11:37 am CLINICAL HISTORY: fatty liver, elevated INR COMPARISON: No relevant comparisons available. TECHNIQUE: Sonographic evaluation of the right upper quadrant was performed as a dedicated liver ult rasound study. FINDINGS: Patient intubated with limited mobility. This limits optimal visualization of the liver. Liver is 16 cm in maximum dimension. No focal lesion of the liver identified. Portal vein flow direct ion and velocity are normal range on Doppler assessment. No nodularity of the liver capsule. There is a coarsened, increased echogenicity of the liver. This can be a body habitus artifact, fatty infiltr ation or a combination. Non-fatty diffuse hepatic parenchymal disease possible as well. No ascites in the right upper quadrant. IMPRESSION: Increased parenchymal echogenicity in a normal size liver. This is probably fatty infilt ration. Body habitus artifact and non-fatty hepatic parenchymal disease can also give this presentati on. No focal liver lesion.
[2021-06-19 15:11] LABS: Arterial Blood Carboxyhemoglob 1.6 % (0-1.5); Blood Gas Oxyhemoglobin 93.5 % (94-97); Blood O2 Saturation 95.6 % (92-98.5)
[2021-06-19] MEDS: AMIODARONE HCL 900 MG in Dextrose 5%-Water 482 ML IV SCH (15:22)
[2021-06-19] MEDS: ALBUMIN HUMAN 25% 100 ML IV SCH ×2 (17:02→20:04)
[2021-06-19] MEDS ORDERED: FENTANYL CITR 100 MCG/2 ML ONE (18:30)
[2021-06-19] MEDS ORDERED: ONDANSETRON 4 MG/2 ML VIAL ONE (18:31)
[2021-06-19] MEDS: ONDANSETRON 4 MG/2 ML VIAL IV PRN (18:34)
[2021-06-19] MEDS: FENTANYL CITR 100 MCG/2 ML IV PRN (18:34)
[2021-06-19] MEDS ORDERED: propofoL 200 MG/20 ML VIAL IV ONE (18:50)
[2021-06-19] MEDS ORDERED: ATORVASTATIN 10 MG TAB ONE (20:01)
[2021-06-19] MEDS: ATORVASTATIN 20 MG TAB PO SCH (20:04)
[2021-06-19] MEDS ORDERED: APIXABAN 2.5 MG TABLET PO SCH (21:00)
--- NOTE | 2021-06-19 21:06 | PN ---
Date of Progress Note: 06/19/2021 Chief Complaint: Acute kidney injury. Subjective: The patient developed oliguria. This morning she had a borderline hypotension. She had history of multiple medical problems including history of morbid obesity, carotid artery disease, st age 2 chronic kidney disease. Creatinine level has increased in the last 24 hours. The patient is o n amiodarone drip for atrial fibrillation. Heart rate was elevated. The patient developed borderlin e hypotension. Subsequently, she was found to have not oliguria. Urine output was 50 mL/hr and diur etics were started after the patient was given IV albumin and subsequently urine output has increased . Previously, she had a workup to rule out rhabdomyolysis. CPK level within normal limits with no e vidence of rhabdomyolysis. Review of Systems: The patient is intubated. Objective: Lungs: Diminished breath sounds at bases. Few crackles. Heart: S1, S2. Abdomen: Soft. Extremities: Edema present. Impression And Plan: 1.Acute on chronic kidney injury due to cardiorenal syndrome with rapid ventricular response, atrial fibrillation, ischemic acute tubular necrosis. Currently nonoliguric. Serum creatinine level incre ased from 1.6 to 2 over last 24 hours. Urinalysis did not show acute urinary sediment is ruled out n ephritis. The patient has had cardiorenal syndrome and prerenal azotemia which has advanced to acute tubular necrosis. The patient will have Lasix as needed. Urine output has improved and currently L asix and metolazone will be stopped. 2.The patient has history of hypertension. She is recovering from hypotensive episode. Continue to monitor blood pressure. EB/MODL Voice ID: [id number] Report ID: [id number]
[2021-06-20] MEDS ORDERED: METHYLPREDNISOLONE 40 MG INJ ONE ×3 (00:42→21:35)
[2021-06-20] MEDS: METHYLPREDNISOLONE 40 MG INJ IV SCH ×3 (00:44→21:00)
[2021-06-20] MEDS ORDERED: PANTOPRAZOLE 40MG TABLET PO ONE (05:28)
[2021-06-20] MEDS: PANTOPRAZOLE 40MG TABLET PO SCH (05:31)
[2021-06-20] MEDS: LEVOTHYROXINE SOD 0.025 MG TAB PO SCH (05:31)
[2021-06-20 05:44] LABS: Absolute Lymphocytes (CBC) 1.3 K/uL (0.7-4.9); Basophils % 0.1 % (0-1.3); Lymphocytes % 10.2 % (15.3-44.8); MPV 7.8 fL (7.6-11.3); RBC Red Blood Cell Count 2.85 M/uL (3.86-4.86)
[2021-06-20 05:46] LABS: Protime INR 1.51
[2021-06-20 05:50] LABS: Arterial Blood Carboxyhemoglob 1.8 % (0-1.5); Blood Gas Oxyhemoglobin 92.7 % (94-97); Blood O2 Saturation 95.2 % (92-98.5)
[2021-06-20 05:53] LABS: Albumin 2.9 g/dL (3.4-5.0); Bilirubin Total 1.7 mg/dL (0.2-1.0); Magnesium 2.6 mg/dL (1.8-2.4); Potassium 4.6 mmol/L (3.5-5.1)
[2021-06-20] MEDS ORDERED: LORazepam 2 MG/ML VIAL ONE ×3 (06:23→14:44)
[2021-06-20] MEDS: LORazepam 2 MG/ML VIAL IV PRN ×2 (06:26→09:42)
[2021-06-20 07:33] LABS: Anisocytosis 1+; Blood Morphology Comment NOTED (NOT SEEN); Platelet Estimate ADEQ; Polychromasia SLIGHT
[2021-06-20] MEDS ORDERED: SODIUM CHLORIDE 0.9% 10ML INJ IV PRN (07:34)
--- NOTE | 2021-06-20 08:01 | RAD REPORT ---
EXAM DESCRIPTION: Felicia Single View06/20/2021 4:41 am CLINICAL HISTORY: Shortness breath COMPARISON: June 19 FINDINGS: Tip of an endotracheal tube 14 millimeters above top of the aortic arch. Enteric tube wit hin the mid stomach. The tip is not included in the field view. Mild improvement in the diffuse bilateral pulmonary opacities. Cardiomegaly. Small bilateral pleural effusions IMPRESSION: Mild improvement in the suspected pulmonary edema
[2021-06-20] MEDS: ARFORMOTEROL TARTRATE 15 MCG/2 ML VIAL.NEB NEB SCH ×2 (08:02→20:10)
[2021-06-20] MEDS ORDERED: ARFORMOTEROL TARTRATE 15 MCG/2 ML VIAL.NEB ONE ×2 (08:14→20:31)
[2021-06-20] MEDS ORDERED: CLOPIDOGREL 75 MG TABLET ONE (08:27)
[2021-06-20] MEDS ORDERED: ASPIRIN EC 81 MG TAB PO ONE (08:27)
[2021-06-20] MEDS ORDERED: FOLIC ACID 1 MG TABLET ONE (08:27)
[2021-06-20] MEDS ORDERED: THIAMINE HCL 100 MG TABLET ONE (08:27)
[2021-06-20] MEDS: THIAMINE HCL 100 MG TABLET PO SCH (08:30)
[2021-06-20] MEDS: ASPIRIN EC 81 MG TAB PO SCH (08:30)
[2021-06-20] MEDS: CLOPIDOGREL 75 MG TABLET PO SCH (08:30)
[2021-06-20] MEDS: FOLIC ACID 1 MG TABLET PO SCH (08:30)
[2021-06-20] MEDS ORDERED: FUROSEMIDE 40 MG/4 ML VIAL IV SCH (09:00)
[2021-06-20] MEDS ORDERED: METOLAZONE 5 MG TABLET PO SCH (09:00)
[2021-06-20] MEDS ORDERED: APIXABAN 2.5 MG TABLET PO SCH (09:00)
[2021-06-20] MEDS: SOD FERRIC GLUC COMPLX/SUCROSE 125 MG in NA CHLORIDE 0.9% 100 ML IV SCH (09:22)
[2021-06-20] MEDS ORDERED: VITAL HP 1,000 ML BOT RTH SCH (11:00)
--- NOTE | 2021-06-20 12:44 | P.PN ---
Subjective Date of Service: 06/20/21 Primary Care Provider: Dr. Ruano(He asked for Hospitalist to see); Cardiology- Dr. Shaver Chief Complaint: Respiratory failure Subjective: Improving (Patient is improving alert and she is off all sedation hemodynamically stable) Review of Systems is unable to be obtained Physical Examination - Vital Signs Temperature: 98.6 F Blood Pressure: 132/82 Pulse: 105 Respirations: 18 Pulse Ox (%): 95 - Physical Exam General: Alert, Cooperative Respiratory: Clear to auscultation bilaterally, Diminished Cardiovascular: Normal S1 S2, Edema Assessment & Plan - Problems (Diagnosis) (1) Respiratory failure Current Visit: No Status: Acute Plan: Patient is doing much better wean off from ventilator possible extubate today patient still changes on the x-ray renal function is slightly worse patient is alert and cooperative reduce dose of Solu-Medrol blood cultures negative on 40% FiO2 oxygenation stable Qualifiers: Chronicity: acute Respiratory failure complication: hypoxia and hypercapnia Qualified Code(s): J96.01 - Acute respiratory failure with hypoxia; J96.02 - Acute respiratory failure with hypercapnia Physician Review Additional Text: COVID: Negative Initial Chest x-ray: COMPARISON: May 03 TECHNIQUE: AP portable chest image was obtained 06/17/2021 3:24 am . FINDINGS: No dense mass or consolidations seen. There is diffusely prominent interstitial opacification increased in prominence over the prior study. Heart size is prominent but stable. Central vasculature is fractionally increased. Small bilateral pleural effusions are suspected. No pneumothorax. No acute bony abnormality seen. No acute aortic findings suspected. IMPRESSION: CHF/volume overload is suspected. No new mass or consolidation. ECHO: DIASTOLIC (NORMALS) SYSTOLIC (NORMALS) IVSd 1.1 (0.6-1.2) LA Diam 3.6 (1.9-4.0) LVEF 40-45% LVIDd 3.6 (3.5-5.7) LVIDs 2.7 (2.0-3.5) %FS 25% LVPWd 1.1 (0.6-1.2) Ao Diam 2.6 (2.0-3.7) 2 DIMENSIONAL ASSESSMENT: RIGHT ATRIUM: NORMAL LEFT ATRIUM: ENLARGED RIGHT VENTRICLE: NORMAL LEFT VENTRICLE: MILDLY DEPRESSED TRICUSPID VALVE: MITRAL VALVE: MTRAL ANNULAR CALCIFICATION PULMONIC VALVE: NORMAL AORTIC VALVE: NORMAL PERICARDIAL EFFUSION: MILD AORTIC ROOT: NORMAL LEFT VENTRICULAR WALL MOTION: MILD GLOBAL HYPEKINESIS DOPPLER/COLOR FLOW: SEE BELOW COMMENTS: MILDLY DEPRESSED LEFT VENTRICULAR EJECTION FRACTION 40-45%. MILD MITRAL AND TRICUSPID REGURGITATION. ATRIAL FIBRILLATION. Follow up CXR 06/19/2021: COMPARISON: June 18, June 17 TECHNIQUE: AP portable chest image was obtained 06/19/2021 6:20 am . FINDINGS: ET tube is in place with the tip top of the aortic arch 3 cm above the ailyn. This is well positioned. NG/OG tube in place extending well below the diaphragm, off the field of view. No new tube or line identified. Bilateral airspace opacification is present in the mid and lower lung spicer. When cereal imaging is compared, patient has shown overall improvement. No progression has occurred. Cardiomegaly remains but is slightly improved. Upper lobe vasculature shows a decrease in prominence but not full resolution. No pneumothorax present. No enlarging pleural effusion. IMPRESSION: CHF/volume overload pattern shows improvement on serial review of imaging. Significant CHF findings remain. Physical Exam: GENERAL: Patient remains intubated. Slight agitation noted. VITAL SIGNS: Reviewed. HEENT: Neck supple LUNGS: Decreased at the bases. Patient intubated. Currently on the ventilator. HEART: Irregular irregular with A. fib rate around 100-120 ABDOMEN: Soft, nontender, and nondistended. Positive bowel sounds. No hepatosplenomegaly was noted. EXTREMITIES: Edema to the lower extremities improved. NEUROLOGIC: Patient responds to pain and voice. SKIN: Edema to the lower extremities improved Ambriz catheter in place. Impression: Dyspnea, edema to the lower extremity secondary to acute respiratory failure with hypoxia related to acute on chronic diastolic CHF complicated with atrial fibrillation with RVR and COPD exacerbation Acute on chronic renal disease stage III History of hypertension Elevated INR Hypothyroidism History of carotid arterial disease with carotid enterectomy GERD Hyperlipidemia History of breast cancer with mastectomy Anemia chronic disease with iron def. anemia Fatty liver Plan: Dyspnea, edema to the lower extremity secondary to acute respiratory failure with hypoxia related to acute on chronic diastolic CHF complicated with atrial fibrillation with RVR and COPD exacerbation: Patient remains intubated at this time. Will decrease IV Lasix to 20 mg IV twice daily. Nephrology has reinitiated IV fluids. Patient remains on IV amiodarone. Patient remains on IV Solu-Medrol and COPD medication. Pulmonology plans to continue to wean off ventilator. Cardiology plans to wean off IV amiodarone and consider changing to beta-reno. No cardioversion is planned. Renal function more compromised today. Will discuss further with cardiology, pulmonology and nephrology. Blood cultures pending so far negative. Recheck chest x-ray shows improvement. I will turn to service over to the hospitalist team tomorrow. I will go over plan of care with him. Acute on chronic renal disease stage III: Renal function worse. Will decrease Lasix to 20 mg IV twice daily. IV fluids reinitiated by nephrology. Chest x- ray still shows improvement. Continue to monitor chest x-ray. Await further recommendations from nephrology. History of hypertension: Blood pressures remained stable at this time. If blood pressure elevated consider transitioning to metoprolol. Elevated INR: Initial INR elevated at 2.9. INR improved to 1.5. Currently not on anticoagulation at this time due to initial elevated INR. Will discuss with pulmonology about anticoagulation but will need to be careful due to her anemia and iron deficiency. Will start IV iron. Will monitor CBC and PTT/PT and INR. Will discuss with nephrology, cardiology and nephrology. Will need to verify home medication. It is suspected patient has been on Xarelto. Will need to confirm and reconcile home medications. Hypothyroidism: Continue levothyroxine 25 mcg daily. History of carotid arterial disease with carotid enterectomy: Continue aspirin 81 mg daily and Plavix 75 mg daily. GERD: Continue Protonix 40 mg daily Hyperlipidemia: LDL 50. Continue Lipitor 20 mg and Tricor 160 mg daily. History of breast cancer with mastectomy: No blood pressure is on the left side. Will monitor this closely. Anemia of chronic disease with iron deficiency anemia: Maintain hemoglobin above 8.0. Iron studies reviewed. Will start IV iron. Will monitor CBC. Fatty liver: Will check liver ultrasound. Will check hepatitis and HIV. Code Status: Full Code DVT prophylaxis: SCD Advanced Care Planning-30 minutes: Home at discharge
[2021-06-20] MEDS ORDERED: FUROSEMIDE 20 MG/ 2ML VIAL IV PRN (13:23)
[2021-06-20] MEDS ORDERED: LEVALBUTEROL 1.25 MG/3 ML NEB ONE (14:25)
[2021-06-20] MEDS ORDERED: IPRATROPIUM BROM 0.5MG/2.5ML ONE (14:25)
[2021-06-20] MEDS ORDERED: LORazepam 2 MG/ML VIAL IV PRN (14:34)
[2021-06-20] MEDS ORDERED: FUROSEMIDE 40 MG/4 ML VIAL IV ONE (14:51)
[2021-06-20] MEDS ORDERED: FUROSEMIDE 100 MG/10 ML VIAL IV ONE (14:55)
[2021-06-20 15:06] LABS: Arterial Blood Carboxyhemoglob 1.7 % (0-1.5); Blood Gas Oxyhemoglobin 86.7 % (94-97); Blood O2 Saturation 89.2 % (92-98.5)
[2021-06-20] MEDS ORDERED: DIGOXIN 0.25 MG/ML AMP ONE (15:35)
[2021-06-20] MEDS ORDERED: METOPROLOL TARTRATE 5 MG/5 ML INJ IV STA (15:41)
[2021-06-20] MEDS: DIGOXIN 0.25 MG/ML AMP IV ONE (15:46)
[2021-06-20] MEDS ORDERED: ALBUMIN HUMAN 25% 0 ML IV ONE (15:49)
[2021-06-20] MEDS ORDERED: ALBUMIN HUMAN 25% 100 ML IV ONE (16:00)
[2021-06-20] MEDS ORDERED: RSI MEDICATION KIT IV ONE (16:06)
[2021-06-20] MEDS ORDERED: propofoL 200 MG/20 ML VIAL IV ONE (16:06)
[2021-06-20] MEDS ORDERED: propofoL 1,000 MG/100 ML VIAL IV ONE (16:07)
[2021-06-20] MEDS ORDERED: HYDROMORPHONE HCL 2 MG/ML inj ONE (16:43)
[2021-06-20 16:49] LABS: Arterial Blood Carboxyhemoglob 1.4 % (0-1.5); Blood Gas Oxyhemoglobin 84.9 % (94-97); Blood O2 Saturation 87.2 % (92-98.5)
[2021-06-20] MEDS: propofoL 1,000 MG/100 ML VIAL IV PRN (16:50)
[2021-06-20] MEDS: HYDROMORPHONE HCL 2 MG/ML inj IV PRN (16:50)
[2021-06-20 16:51] LABS: Arterial Blood Carboxyhemoglob 1.1 % (0-1.5); Blood Gas Oxyhemoglobin 83.5 % (94-97); Blood O2 Saturation 85.3 % (92-98.5)
--- NOTE | 2021-06-20 17:35 | RAD REPORT ---
EXAM DESCRIPTION: RAD - Chest Single View - 06/20/2021 5:28 pm CLINICAL HISTORY: Endotracheal tube placement Chest pain. COMPARISON: Chest Single View dated 06/20/2021; Chest Single View dated 06/19/2021; Chest Single Vie w dated 06/18/2021; Chest Single View dated 06/17/2021 FINDINGS: Portable technique limits examination quality. Tip of the ET tube is approximately 1 cm above the aortic arch, similar in position to prior study wh en considering slight rotation of the patient. Enteric tube descends into the upper abdomen. Moderate bilateral pulmonary opacities are present, unchanged.The heart is moderately enlarged.
--- NOTE | 2021-06-20 17:35 | RAD REPORT ---
EXAM DESCRIPTION: RAD - Abdomen 1 View (KUB) - 06/20/2021 5:28 pm CLINICAL HISTORY: NGT placement Pain COMPARISON: Abdomen 1 View (KUB) dated 04/30/2021 FINDINGS: Enteric tube coils in the stomach.
[2021-06-20] MEDS ORDERED: ETOMIDATE 20 MG/10 ML VIAL IV ONE (18:05)
[2021-06-20] MEDS ORDERED: SUCCINYLCHOLINE 20 MG/ML (10 ML) IV ONE (18:05)
[2021-06-20 18:21] LABS: Arterial Blood Carboxyhemoglob 1.7 % (0-1.5); Blood Gas Oxyhemoglobin 87.1 % (94-97); Blood O2 Saturation 89.5 % (92-98.5)
[2021-06-20] MEDS: AMIODARONE HCL 900 MG in Dextrose 5%-Water 482 ML IV SCH (18:24)
--- NOTE | 2021-06-20 19:30 | P.PN ---
Subjective Date of Service: 06/20/21 Subjective: Patient continues to show some improvement. Patient was extubated but then had to be reintubated. Will continue with diuresing patient at this time. Continue with control of atrial fibrillation with amiodarone. May add beta-reno therapy as well. Monitor renal function closely. Review of Systems 10-point ROS is otherwise unremarkable Physical Examination - Vital Signs Temperature: 97.6 F Blood Pressure: 98/53 Pulse: 88 Respirations: 22 Pulse Ox (%): 99 - Physical Exam General: Other (Patient is intubated and sedated) Respiratory: Diminished, Crackles/rales Cardiovascular: Regular rate/rhythm, Normal S1 S2, Systolic murmur Gastrointestinal: Normal bowel sounds, Soft and benign, Non-distended, No tenderness Musculoskeletal: No clubbing, No tenderness, Swelling Neurological: Other (Moves all extremities and follows commands) - Studies Medications List Reviewed: Yes Assessment & Plan - Problems (Diagnosis) (1) Acute CHF (congestive heart failure) Current Visit: Yes Status: Acute Qualifiers: Heart failure type: combined systolic and diastolic Qualified Code(s): I50.41 - Acute combined systolic (congestive) and diastolic (congestive) heart failure (2) Atrial fibrillation Current Visit: No Status: Acute Qualifiers: Atrial fibrillation type: unspecified Qualified Code(s): I48.91 - Unspecified atrial fibrillation (3) CAD (coronary artery disease) Current Visit: No Status: Chronic Qualifiers: Coronary Disease-Associated Artery/Lesion type: [place] artery [place] vs. transplanted heart: [place] heart Associated angina: unspecified whether angina present Qualified Code(s): I25.10 - Atherosclerotic heart disease of [place] coronary artery without angina pectoris (4) COPD (chronic obstructive pulmonary disease) Current Visit: No Status: Chronic Qualifiers: COPD type: chronic bronchitis (5) HLD (hyperlipidemia) Current Visit: No Status: Chronic Qualifiers: Hyperlipidemia type: unspecified Qualified Code(s): E78.5 - Hyperlipidemia, unspecified (6) Hypertension Current Visit: No Status: Chronic Qualifiers: Hypertension type: primary hypertension Qualified Code(s): I10 - Essential (primary) hypertension (7) Hypothyroidism Current Visit: No Status: Chronic Qualifiers: Hypothyroidism type: unspecified Qualified Code(s): E03.9 - Hypothyroidism, unspecified (8) Tvgyd-du-rychrqr kidney injury Current Visit: Yes Status: Acute - Plan 1. Echocardiogram has been reviewed. Patient with ejection fraction of 40%. 2. Patient atrial fibrillation with rapid ventricular response. Rate is controlled. On amiodarone drip. Will add beta-reno therapy 3. Renal function is increase. Monitor diuresing 4. Cardiology consultation, Pulmonary consultation, Nephrology consultation appreciated 5. Will need to diurese a little more effectively 6. Strict I's and O's 7. Repeat CXR 8. Daily weights 9. Speak to regarding patient's plan of care. 10. GI and DVT prophylaxis Discharge Plan: Home Plan to discharge in: Greater than 2 days - Advance Directives Does patient have a Living Will: No Does patient have a Durable POA for Healthcare: Yes - Code Status/Comfort Care Code Status Assessed: Yes Code Status: Full Code Critical Care: No Time Spent Managing PTS Care (In Minutes): 35
[2021-06-20] MEDS: ATORVASTATIN 20 MG TAB PO SCH (21:00)
[2021-06-20] MEDS ORDERED: ATORVASTATIN 20 MG TAB ONE (21:35)
--- NOTE | 2021-06-20 22:02 | PN ---
Date of Progress Note: 06/20/2021 Chief Complaint: Acute kidney injury, borderline oliguric. Renal function has not improved over las t 24 hours. Creatinine level is up to 2.2. The patient was treated with IV Lasix for cardiorenal sy ndrome with congestive heart failure. The patient was found to have pulmonary edema, hypoxemic respi ratory failure, which is multifactorial. The patient is on amiodarone drip for atrial fibrillation. Yesterday patient developed borderline hypotension and was started on IV albumin. Lasix was initiat ed for oliguric condition related to cardiorenal syndrome and ATN. Patient previously had a workup d one for rhabdomyolysis. CK level was within normal limits. There was no evidence of rhabdomyolysis. Today patient was found to have anemia and plan was to start blood transfusion. Patient was extuba rory and was short of breath. In the afternoon, she had multiple wheezes and Lasix was increased to c ontrol congestive heart failure. The patient remains on amiodarone drip. Review of Systems: Unobtainable. The patient cannot provide review of systems due to her condition. Objective: Heart: S1, S2. Abdomen: Soft. Extremities: Edema present in both legs. Lungs: Few crackles. Few wheezes. Impression And Plan: 1.Acute on chronic kidney injury cardiorenal syndrome with atrial fibrillation and rapid ventricular response. The patient has ischemic acute tubular necrosis. Urine output is fluctuating, diuresing well, enhanced by diuretic and plan is to advance diuretic dose to control congestive heart failure. Patient has cardiorenal syndrome and prerenal azotemia, likely there is acute tubular necrosis as we ll. The patient has multiple medical problems, history of atrial fibrillation, cardiac arrhythmia with atrial fibrillation, management per Cardiology. EB/MODL Voice ID: [id number] Report ID: [id number]
[2021-06-20] MEDS: FUROSEMIDE 40 MG/4 ML VIAL IV SCH (23:00)
[2021-06-20] MEDS ORDERED: FUROSEMIDE 40 MG/4 ML VIAL ONE (23:20)
[2021-06-21] MEDS ORDERED: propofoL 1,000 MG/100 ML VIAL IV ONE ×5 (00:05→20:22)
[2021-06-21] MEDS: FUROSEMIDE 40 MG/4 ML VIAL IV SCH ×2 (01:00→08:59)
[2021-06-21] MEDS ORDERED: ATORVASTATIN 10 MG TAB ONE (01:10)
[2021-06-21] MEDS ORDERED: FUROSEMIDE 40 MG/4 ML VIAL ONE ×2 (01:24→08:53)
[2021-06-21 05:23] LABS: Hematocrit 23.6 % (36.0-45.0); RBC Red Blood Cell Count 2.87 M/uL (3.86-4.86)
[2021-06-21 05:24] LABS: Absolute Lymphocytes (CBC) 1.3 K/uL (0.7-4.9); Lymphocytes % 10.9 % (15.3-44.8); MPV 7.7 fL (7.6-11.3)
[2021-06-21 05:27] LABS: Protime INR 1.63
[2021-06-21 05:34] LABS: Albumin 3.1 g/dL (3.4-5.0); Bilirubin Total 1.9 mg/dL (0.2-1.0); Magnesium 2.6 mg/dL (1.8-2.4); Potassium 3.6 mmol/L (3.5-5.1)
[2021-06-21] MEDS: LEVOTHYROXINE SOD 0.025 MG TAB PO SCH (06:30)
[2021-06-21] MEDS ORDERED: ARFORMOTEROL TARTRATE 15 MCG/2 ML VIAL.NEB ONE ×2 (08:09→20:13)
[2021-06-21] MEDS: ARFORMOTEROL TARTRATE 15 MCG/2 ML VIAL.NEB NEB SCH ×2 (08:12→20:00)
[2021-06-21] MEDS ORDERED: ASPIRIN EC 81 MG TAB PO ONE (08:52)
[2021-06-21] MEDS ORDERED: CLOPIDOGREL 75 MG TABLET ONE (08:52)
[2021-06-21] MEDS ORDERED: THIAMINE HCL 100 MG TABLET ONE (08:52)
[2021-06-21] MEDS ORDERED: FOLIC ACID 1 MG TABLET ONE (08:52)
[2021-06-21] MEDS ORDERED: PANTOPRAZOLE 40 MG INJ ONE (08:53)
[2021-06-21] MEDS ORDERED: NS 0.9% VIAL 10 ML ONE (08:53)
[2021-06-21] MEDS ORDERED: METHYLPREDNISOLONE 40 MG INJ ONE ×2 (08:53→20:21)
[2021-06-21] MEDS: CLOPIDOGREL 75 MG TABLET PO SCH (08:58)
[2021-06-21] MEDS: THIAMINE HCL 100 MG TABLET PO SCH (08:59)
[2021-06-21] MEDS: PANTOPRAZOLE 40 MG INJ IVP SCH (08:59)
[2021-06-21] MEDS: METHYLPREDNISOLONE 40 MG INJ IV SCH (08:59)
[2021-06-21] MEDS: ASPIRIN EC 81 MG TAB PO SCH (08:59)
[2021-06-21] MEDS: FOLIC ACID 1 MG TABLET PO SCH (08:59)
[2021-06-21] MEDS: SOD FERRIC GLUC COMPLX/SUCROSE 125 MG in NA CHLORIDE 0.9% 100 ML IV SCH (09:00)
[2021-06-21] MEDS ORDERED: LORazepam 2 MG/ML VIAL ONE ×3 (09:03→22:56)
[2021-06-21] MEDS: LORazepam 2 MG/ML VIAL IV PRN ×3 (09:05→23:10)
--- NOTE | 2021-06-21 09:06 | P.PN ---
Subjective Date of Service: 06/21/21 Primary Care Provider: Dr. Ruano(He asked for Hospitalist to see); Cardiology- Dr. Shaver Chief Complaint: Respiratory failure Subjective: Other (Reintubated yesterday.) Physical Examination - Vital Signs Temperature: 98.8 F Blood Pressure: 104/67 Pulse: 94 Respirations: 22 Pulse Ox (%): 99 - Physical Exam General: Other (sedated) HEENT: Other (intubated) Neck: Supple Respiratory: Other (symmetric chest expansion) Cardiovascular: No rubs, No murmurs Gastrointestinal: Soft and benign, No guarding Musculoskeletal: No clubbing Integumentary: No warmth Neurological: Other (sedated) Urinary: Ambriz catheter External genitalia: Deferred Rectal: Deferred - Studies Medications List Reviewed: Yes Assessment And Plan - Plan # ANDREA 2/2 ischemic ATN 2/2 CRS1 from rapid afib Baseline SCr 1.0 as of 05/09/2021 SCr 1.4 on adm, worsened further to 2.6 d/t recurrent rapid afib w/ relative/borderline hypotensive episodes Urinalysis unremarkable except for +Ca oxalate crystals No overt proteinuria CPK wnl, no rhabdo Urine chem on 06/21 showed ATN D/t ATN, keep fluid balance net even per day Switch feeding tube formula to Nepro Cont protonix as she is receiving high dose steroids HR control < 110 bpm Strict I/O Monitor renal panel # Hypotension likely 2/2 rapid afib Resolved Hx of Htn Monitor # Acute respi failure 2/2 Afib w/ RVR Hx of chronic diastolic HF +trop leak; BNP sig elevated TTE on 06/17/21 showed LVEF 40-45%, LA dilated Chest CT on 09/2020 showed no e/o pulmo Htn HR better controlled w/ Amio gtt Cont IV lasix to lessen lung V/Q mismatch IV rate control med conversion to po regimen per Cardiology # Na overload w/ BLE edema Avoid Na-containing IV/carrier fluid # Anemia 1u pRBC received on 06/21
--- NOTE | 2021-06-21 10:13 | RAD REPORT ---
EXAM DESCRIPTION: RAD - Chest Single View - 06/21/2021 9:57 am CLINICAL HISTORY: resp failure COMPARISON: June 20 TECHNIQUE: AP portable chest image was obtained 06/21/2021 9:57 am . FINDINGS: Endotracheal tube is approximately 1 centimeter above the aortic arch, 4.5 cm above the ca treesa. This is adequate positioning and stable. NG/OG tube is curled in the stomach no new tube or martha e identified. Bilateral airspace opacification is present showing bilateral improvement, more evident on the left. Central pulmonary vasculature has decreased in prominence. Cardiomegaly is present similar to compari son. No pneumothorax present. No large pleural effusions seen. IMPRESSION: Bilateral airspace opacities have improved from the prior day study with significant opa cification remaining. Tubes and lines are unchanged.
[2021-06-21] MEDS: propofoL 1,000 MG/100 ML VIAL IV PRN ×3 (10:38→20:40)
[2021-06-21] MEDS ORDERED: NA CHLORIDE 0.9% 250 ML ONE (13:53)
--- NOTE | 2021-06-21 17:18 | P.PN ---
Subjective Date of Service: 06/21/21 Primary Care Provider: Dr. Ruano(He asked for Hospitalist to see); Cardiology- Dr. Shaver Chief Complaint: Respiratory failure Condition stable patient was reintubated yesterday did not tolerate extubation currently on sedation Review of Systems is unable to be obtained Physical Examination - Vital Signs Temperature: 98.8 F Blood Pressure: 107/64 Pulse: 89 Respirations: 22 Pulse Ox (%): 97 - Physical Exam General: Unresponsive Respiratory: Clear to auscultation bilaterally, Diminished Cardiovascular: Edema, Irregular heart rate/rhythm - Studies Medications List Reviewed: Yes Assessment & Plan - Problems (Diagnosis) (1) Respiratory failure Current Visit: No Status: Acute Plan: Patient had to be reintubated chest x-ray still shows impressive bilateral pulmonary infiltrate minimal oxygen requirements Lasix resumed renal function is worse chest x-ray shows bilateral changes differential diagnosis also includes atypical pneumonia trial of steroids and antibiotics Rocephin and doxycycline for now patient is on amiodarone CT of the chest without contrast advance endotracheal tube by 1 cm repeat dose of Lasix Qualifiers: Chronicity: acute Respiratory failure complication: hypoxia and hypercapnia Qualified Code(s): J96.01 - Acute respiratory failure with hypoxia; J96.02 - Acute respiratory failure with hypercapnia Physician Review Additional Text: COVID: Negative Initial Chest x-ray: COMPARISON: May 03 TECHNIQUE: AP portable chest image was obtained 06/17/2021 3:24 am . FINDINGS: No dense mass or consolidations seen. There is diffusely prominent interstitial opacification increased in prominence over the prior study. Heart size is prominent but stable. Central vasculature is fractionally increased. Small bilateral pleural effusions are suspected. No pneumothorax. No acute bony abnormality seen. No acute aortic findings suspected. IMPRESSION: CHF/volume overload is suspected. No new mass or consolidation. ECHO: DIASTOLIC (NORMALS) SYSTOLIC (NORMALS) IVSd 1.1 (0.6-1.2) LA Diam 3.6 (1.9-4.0) LVEF 40-45% LVIDd 3.6 (3.5-5.7) LVIDs 2.7 (2.0-3.5) %FS 25% LVPWd 1.1 (0.6-1.2) Ao Diam 2.6 (2.0-3.7) 2 DIMENSIONAL ASSESSMENT: RIGHT ATRIUM: NORMAL LEFT ATRIUM: ENLARGED RIGHT VENTRICLE: NORMAL LEFT VENTRICLE: MILDLY DEPRESSED TRICUSPID VALVE: MITRAL VALVE: MTRAL ANNULAR CALCIFICATION PULMONIC VALVE: NORMAL AORTIC VALVE: NORMAL PERICARDIAL EFFUSION: MILD AORTIC ROOT: NORMAL LEFT VENTRICULAR WALL MOTION: MILD GLOBAL HYPEKINESIS DOPPLER/COLOR FLOW: SEE BELOW COMMENTS: MILDLY DEPRESSED LEFT VENTRICULAR EJECTION FRACTION 40-45%. MILD MITRAL AND TRICUSPID REGURGITATION. ATRIAL FIBRILLATION. Follow up CXR 06/19/2021: COMPARISON: June 18June 17 TECHNIQUE: AP portable chest image was obtained 06/19/2021 6:20 am . FINDINGS: ET tube is in place with the tip top of the aortic arch 3 cm above the ailyn. This is well positioned. NG/OG tube in place extending well below the diaphragm, off the field of view. No new tube or line identified. Bilateral airspace opacification is present in the mid and lower lung spicer. When cereal imaging is compared, patient has shown overall improvement. No pro gression has occurred. Cardiomegaly remains but is slightly improved. Upper lobe vasculature shows a decrease in prominence but not full resolution. No pneumothorax present. No enlarging pleural effusion. IMPRESSION: CHF/volume overload pattern shows improvement on serial review of imaging. Significant CHF findings remain. Physical Exam: GENERAL: Patient remains intubated. Slight agitation noted. VITAL SIGNS: Reviewed. HEENT: Neck supple LUNGS: Decreased at the bases. Patient intubated. Currently on the ventilator. HEART: Irregular irregular with A. fib rate around 100-120 ABDOMEN: Soft, nontender, and nondistended. Positive bowel sounds. No hepatosplenomegaly was noted. EXTREMITIES: Edema to the lower extremities improved. NEUROLOGIC: Patient responds to pain and voice. SKIN: Edema to the lower extremities improved Ambriz catheter in place. Impression: Dyspnea, edema to the lower extremity secondary to acute respiratory failure with hypoxia related to acute on chronic diastolic CHF complicated with atrial fibrillation with RVR and COPD exacerbation Acute on chronic renal disease stage III History of hypertension Elevated INR Hypothyroidism History of carotid arterial disease with carotid enterectomy GERD Hyperlipidemia History of breast cancer with mastectomy Anemia chronic disease with iron def. anemia Fatty liver Plan: Dyspnea, edema to the lower extremity secondary to acute respiratory failure with hypoxia related to acute on chronic diastolic CHF complicated with atrial fibrillation with RVR and COPD exacerbation: Patient remains intubated at this time. Will decrease IV Lasix to 20 mg IV twice daily. Nephrology has reinitiated IV fluids. Patient remains on IV amiodarone. Patient remains on IV Solu-Medrol and COPD medication. Pulmonology plans to continue to wean off ventilator. Cardiology plans to wean off IV amiodarone and consider changing to beta-reno. No cardioversion is planned. Renal function more compromised today. Will discuss further with cardiology, pulmonology and nephrology. Blood cultures pending so far negative. Recheck chest x-ray shows improvement. I will turn to service over to the hospitalist team tomorrow. I will go over plan of care with him. Acute on chronic renal disease stage III: Renal function worse. Will decrease Lasix to 20 mg IV twice daily. IV fluids reinitiated by nephrology. Chest x- ray still shows improvement. Continue to monitor chest x-ray. Await further recommendations from nephrology. History of hypertension: Blood pressures remained stable at this time. If blood pressure elevated consider transitioning to metoprolol. Elevated INR: Initial INR elevated at 2.9. INR improved to 1.5. Currently not on anticoagulation at this time due to initial elevated INR. Will discuss with pulmonology about anticoagulation but will need to be careful due to her anemia and iron deficiency. Will start IV iron. Will monitor CBC and PTT/PT and INR. Will discuss with nephrology, cardiology and nephrology. Will need to verify home medication. It is suspected patient has been on Xarelto. Will need to confirm and reconcile home medications. Hypothyroidism: Continue levothyroxine 25 mcg daily. History of carotid arterial disease with carotid enterectomy: Continue aspirin 81 mg daily and Plavix 75 mg daily. GERD: Continue Protonix 40 mg daily Hyperlipidemia: LDL 50. Continue Lipitor 20 mg and Tricor 160 mg daily. History of breast cancer with mastectomy: No blood pressure is on the left side. Will monitor this closely. Anemia of chronic disease with iron deficiency anemia: Maintain hemoglobin above 8.0. Iron studies reviewed. Will start IV iron. Will monitor CBC. Fatty liver: Will check liver ultrasound. Will check hepatitis and HIV. Code Status: Full Code DVT prophylaxis: SCD Advanced Care Planning-30 minutes: Home at discharge
[2021-06-21] MEDS ORDERED: FUROSEMIDE 40 MG/4 ML VIAL IV SCH (17:24)
[2021-06-21] MEDS ORDERED: CEFTRIAXONE 1000 MG/VIAL ONE (18:04)
[2021-06-21] MEDS ORDERED: NA CHLORIDE 0.9% 50 ML ONE (18:04)
[2021-06-21] MEDS: CEFTRIAXONE 1,000 MG in NA CHLORIDE 0.9% 50 ML IVPB SCH (18:06)
[2021-06-21] MEDS ORDERED: HYDROMORPHONE HCL 2 MG/ML inj ONE (20:21)
[2021-06-21] MEDS ORDERED: DOXYCYCLINE 100 MG CAP PO ONE (20:21)
[2021-06-21] MEDS: METHYLPREDNISOLONE 125 MG INJ IV SCH (20:25)
[2021-06-21] MEDS: HYDROMORPHONE HCL 2 MG/ML inj IV PRN (20:25)
--- NOTE | 2021-06-21 20:38 | RAD REPORT ---
EXAM DESCRIPTION: CT - Thorax Wo Con CLINICAL HISTORY: Chest pain Respiratory failure COMPARISON: Thorax Wo Con dated 09/20/2020; Chest Single View dated 06/21/2021 FINDINGS: Moderate ground-glass lung opacities are present bilaterally moderate atelectasis in both posterior lung bases. Small to moderate bilateral pleural effusions. No pneumothorax. Enteric tube co ils in the stomach. Tip of the ET tube is above the ailyn approximately at the level of the superior aortic arch. No axillary, mediastinal or hilar adenopathy. No concerning bony finding. No gross upper abdominal finding. All CT scans are performed using dose optimization technique as appropriate and may include automated exposure control or mA/KV adjustment according to patient size. IMPRESSION: Moderate bilateral ground-glass screws are present with small to moderate bilateral pleu ral effusions, likely related to pneumonia.
[2021-06-21] MEDS ORDERED: DOXYCYCLINE HYCLATE 100MG INJ ONE (21:05)
[2021-06-21] MEDS ORDERED: NA CHLORIDE 0.9% 100 ML ONE (21:13)
[2021-06-21] MEDS ORDERED: MIDAZOLAM HCL 2 MG/2 ML INJ ONE (21:19)
[2021-06-21] MEDS: DOXYCYCLINE 100 MG in NA CHLORIDE 0.9% 100 ML IVPB SCH (21:20)
[2021-06-21] MEDS: MIDAZOLAM HCL 2 MG/2 ML INJ IV PRN (21:28)
[2021-06-21] MEDS ORDERED: ATORVASTATIN 40 MG TAB ONE (21:37)
[2021-06-21] MEDS: ATORVASTATIN 20 MG TAB PO SCH (21:45)
[2021-06-21 23:42] LABS: Hematocrit 26.7 % (36.0-45.0)
[2021-06-21] MEDS ORDERED: FUROSEMIDE 20 MG/ 2ML VIAL ONE (23:54)
[2021-06-22] MEDS ORDERED: HYDROMORPHONE HCL 2 MG/ML inj ONE ×2 (00:09→04:05)
[2021-06-22] MEDS: HYDROMORPHONE HCL 2 MG/ML inj IV PRN ×2 (00:20→04:23)
[2021-06-22] MEDS ORDERED: propofoL 1,000 MG/100 ML VIAL IV ONE ×4 (01:40→22:20)
[2021-06-22] MEDS: propofoL 1,000 MG/100 ML VIAL IV PRN ×3 (01:44→22:22)
[2021-06-22] MEDS ORDERED: MIDAZOLAM HCL 2 MG/2 ML INJ ONE (02:14)
[2021-06-22] MEDS: MIDAZOLAM HCL 2 MG/2 ML INJ IV PRN (02:23)
[2021-06-22 06:36] LABS: Absolute Lymphocytes (CBC) 1.2 K/uL (0.7-4.9); Basophils % 0.3 % (0-1.3); Hematocrit 27.8 % (36.0-45.0); Lymphocytes % 8.6 % (15.3-44.8); MPV 8.4 fL (7.6-11.3); RBC Red Blood Cell Count 3.35 M/uL (3.86-4.86)
[2021-06-22 07:04] LABS: Albumin 2.7 g/dL (3.4-5.0); Phosphorus 3.3 mg/dL (2.5-4.9)
--- NOTE | 2021-06-22 07:33 | RAD REPORT ---
EXAM DESCRIPTION: RAD - Chest Single View - 06/22/2021 5:39 am CLINICAL HISTORY: resp failure COMPARISON: Chest Single View dated 06/21/2021; Abdomen 1 View (KUB) dated 06/20/2021; Chest Single View dated 06/20/2021; Chest Single View dated 06/20/2021; Thorax Wo Con dated 06/21/2021 FINDINGS: Lines: Endotracheal tube at the aortic arch. Enteric tube below the diaphragm in the stoma ch. Lungs: Widespread pulmonary opacities are similar. Pleural: Pleural effusions. Cardiac: Cardiomegaly. Bones: No acute fractures. Other: IMPRESSION: Similar aeration lungs with widespread pulmonary opacities and layering pleural effusion s. Support apparatus in satisfactory position.
[2021-06-22 07:42] LABS: Magnesium 2.5 mg/dL (1.8-2.4); Potassium 3.4 mmol/L (3.5-5.1)
[2021-06-22] MEDS: LEVOTHYROXINE SOD 0.025 MG TAB PO SCH (07:45)
[2021-06-22] MEDS ORDERED: ARFORMOTEROL TARTRATE 15 MCG/2 ML VIAL.NEB ONE ×2 (07:52→19:53)
[2021-06-22] MEDS: ARFORMOTEROL TARTRATE 15 MCG/2 ML VIAL.NEB NEB SCH ×2 (07:55→19:53)
[2021-06-22] MEDS: SOD FERRIC GLUC COMPLX/SUCROSE 125 MG in NA CHLORIDE 0.9% 100 ML IV SCH (08:11)
[2021-06-22] MEDS ORDERED: FOLIC ACID 1 MG TABLET ONE (08:50)
[2021-06-22] MEDS ORDERED: METHYLPREDNISOLONE 125 MG INJ ONE (08:50)
[2021-06-22] MEDS ORDERED: THIAMINE HCL 100 MG TABLET ONE (08:50)
[2021-06-22] MEDS ORDERED: CEFTRIAXONE 1000 MG/VIAL ONE (08:50)
[2021-06-22] MEDS ORDERED: ASPIRIN EC 81 MG TAB PO ONE (08:50)
[2021-06-22] MEDS ORDERED: CLOPIDOGREL 75 MG TABLET ONE (08:50)
[2021-06-22] MEDS ORDERED: PANTOPRAZOLE 40 MG INJ ONE (08:51)
[2021-06-22] MEDS ORDERED: NS 0.9% VIAL 10 ML ONE (08:51)
[2021-06-22] MEDS ORDERED: NA CHLORIDE 0.9% 50 ML ONE (08:51)
[2021-06-22] MEDS ORDERED: FUROSEMIDE 40 MG/4 ML VIAL ONE (08:51)
[2021-06-22] MEDS: DOXYCYCLINE 100 MG in NA CHLORIDE 0.9% 100 ML IVPB SCH (08:55)
[2021-06-22] MEDS: CEFTRIAXONE 1,000 MG in NA CHLORIDE 0.9% 50 ML IVPB SCH (08:55)
[2021-06-22] MEDS: PANTOPRAZOLE 40 MG INJ IVP SCH (08:56)
[2021-06-22] MEDS: THIAMINE HCL 100 MG TABLET PO SCH (08:56)
[2021-06-22] MEDS: ASPIRIN EC 81 MG TAB PO SCH (08:56)
[2021-06-22] MEDS: CLOPIDOGREL 75 MG TABLET PO SCH (08:56)
[2021-06-22] MEDS: FOLIC ACID 1 MG TABLET PO SCH (08:56)
[2021-06-22] MEDS ORDERED: FUROSEMIDE 40 MG/4 ML VIAL IV SCH (09:00)
[2021-06-22] MEDS: METHYLPREDNISOLONE 125 MG INJ IV SCH (09:03)
--- NOTE | 2021-06-22 12:01 | P.PN ---
Subjective Date of Service: 06/22/21 Primary Care Provider: Dr. Ruano(He asked for Hospitalist to see); Cardiology- Dr. Shaver Chief Complaint: Respiratory failure Patient's condition is improving hemodynamically stable diuresing fairly well sedation has been weaned down Review of Systems is unable to be obtained Physical Examination - Vital Signs Temperature: 99 F Blood Pressure: 146/75 Pulse: 96 Respirations: 15 Pulse Ox (%): 97 - Physical Exam General: Unresponsive Respiratory: Clear to auscultation bilaterally Cardiovascular: Normal S1 S2, Edema - Studies Medications List Reviewed: Yes Assessment & Plan - Problems (Diagnosis) (1) Respiratory failure Current Visit: No Status: Acute Plan: Patient is improving diuresing well renal function improving continue with Lasix CT scan of the chest shows bilateral pleural effusion sputum cultures pending blood cultures negative DC doxycycline continue with Rocephin white count mildly elevated when changed to SIMV currently on tube feeds Qualifiers: Chronicity: acute Respiratory failure complication: hypoxia and hypercapnia Qualified Code(s): J96.01 - Acute respiratory failure with hypoxia; J96.02 - Acute respiratory failure with hypercapnia
--- NOTE | 2021-06-22 12:45 | PN ---
Date of Progress Note: 06/22/2021 Subjective: The patient was admitted with acute kidney injury, respiratory failure secondary to over volume. The patient was started on diuresis. The patient received Lasix today in the morning, 40 mg. The patient responding very well. The patient had 1 unit of blood transfusion. The patient had self- extubation and re-intubated. Physical Examination: Vital Signs: Blood pressure 146/75, pulse of 96, afebrile. The patient had urine output of 4 L, negative of 1100. Chest: Crackles bilateral. Heart: S1, S2. Systolic murmur. Irregular. Abdomen: Soft, nontender. Extremity: Trace edema. Neuro: The patient sedated. Laboratory Data: Chest x-ray; cardiomegaly with congestion with infiltration on the right lower lobe. WBC 14.10, H and H 8.7/27.8. Sodium 141, potassium 3.4, bicarb 25, BUN 72, creatinine 2.2, calcium 8.2, phosphorus 3.3, magnesium 2.5, albumin 2.7. Corrected calcium of 9. Iron saturation of 3.4, ferritin of 60. Current Medications: The patient on include; 1. Ceftriaxone. 2. IV iron. 3. Plavix. 4. Amiodarone. 5. Atorvastatin. 6. Lasix 40 daily. 7. Solu-Medrol. Assessment And Plan: 1. Acute kidney injury on chronic kidney disease secondary to cardiorenal, still over volume. I am going to increase Lasix to 40 b.i.d. and we will continue to monitor the patient. 2. Hypertension. We will utilize blood pressure for more diuresis. 3. Hypokalemia. We will supplement. 4. Hypernatremia. We will try to establish better sodium diuresis with Lasix. I will increase free water to 200 q.4. 5. Pneumonia, respiratory failure as by Pulmonary. Continue current antibiotic dose appropriate. 6. Respiratory failure, multifactorial, secondary to pneumonia/over volume. We will try to optimize fluid status with diuresis. 7. Iron deficiency anemia. Continue IV iron. 8. Congestive heart failure with exacerbation as above. time spend exam the patient face to face , placing order , review the date lab and radiology , discussed the case with steam distribution supervisor including nursing , and other polymer materials consultant and hospitalist 45 min DONTE/MARK Voice ID: [id number] Report ID: [id number] JOSE
[2021-06-22] MEDS ORDERED: LORazepam 2 MG/ML VIAL ONE (13:06)
[2021-06-22] MEDS: LORazepam 2 MG/ML VIAL IV PRN (13:07)
[2021-06-22 13:30] LABS: HIV AG/AB 4TH GEN Non-reactive (Non-reactive)
[2021-06-22] MEDS ORDERED: POTASSIUM 25 MEQ EFFERV TAB PO ONE (13:40)
[2021-06-22] MEDS ORDERED: POTASSIUM 25 MEQ EFFERV TAB ONE (14:06)
--- NOTE | 2021-06-22 15:27 | P.PN ---
Date of Service: 06/21/21 Subjective Continuing with aggressive diuresing. Remains on ventilator. Spoke with family regarding LTAC placement. At this time, there hoping we can extubate patient and did get patient to inpatient rehabilitation. Review of Systems 10-point ROS is otherwise unremarkable Physical Examination - Vital Signs Reviewed - Physical Exam General: Other (Patient is intubated and sedated) Respiratory: Diminished, Crackles/rales Cardiovascular: Regular rate/rhythm, Normal S1 S2, Systolic murmur Gastrointestinal: Normal bowel sounds, Soft and benign, Non-distended, No tenderness Musculoskeletal: No clubbing, No tenderness, Swelling Neurological: Other (Moves all extremities and follows commands) - Studies Medications List Reviewed: Yes Assessment & Plan - Problems (Diagnosis) (1) Acute CHF (congestive heart failure) Current Visit: Yes Status: Acute Qualifiers: Heart failure type: combined systolic and diastolic Qualified Code(s): I50.41 - Acute combined systolic (congestive) and diastolic (congestive) heart failure (2) Atrial fibrillation Current Visit: No Status: Acute Qualifiers: Atrial fibrillation type: unspecified Qualified Code(s): I48.91 - Unspecified atrial fibrillation (3) CAD (coronary artery disease) Current Visit: No Status: Chronic Qualifiers: Coronary Disease-Associated Artery/Lesion type: [place] artery [place] vs. transplanted heart: [place] heart Associated angina: unspecified whether angina present Qualified Code(s): I25.10 - Atherosclerotic heart disease of [place] coronary artery without angina pectoris (4) COPD (chronic obstructive pulmonary disease) Current Visit: No Status: Chronic Qualifiers: COPD type: chronic bronchitis (5) HLD (hyperlipidemia) Current Visit: No Status: Chronic Qualifiers: Hyperlipidemia type: unspecified Qualified Code(s): E78.5 - Hyperlipidemia, unspecified (6) Hypertension Current Visit: No Status: Chronic Qualifiers: Hypertension type: primary hypertension Qualified Code(s): I10 - Essential (primary) hypertension (7) Hypothyroidism Current Visit: No Status: Chronic Qualifiers: Hypothyroidism type: unspecified Qualified Code(s): E03.9 - Hypothyroidism, unspecified (8) Tlgnk-rh-ddxduxp kidney injury Current Visit: Yes Status: Acute - Plan Continue plan of care as mentioned below: 1. Echocardiogram has been reviewed. Patient with ejection fraction of 40%. 2. Patient atrial fibrillation with rapid ventricular response. Rate is controlled in the 80s and 90s. On amiodarone drip. Will add beta-reno therapy 3. Renal function is stable-continue monitoring volume status closely. Monitor diuresing 4. Cardiology consultation, Pulmonary consultation, Nephrology consultation appreciated 5. Continue with diuresing at this time 6. Strict I's and O's 7. Repeat CXR 8. Daily weights 9. Updated regarding patient's plan of care. 10. GI and DVT prophylaxis Discharge Plan: Inpatient rehabilitation Plan to discharge in: Greater than 2 days - Advance Directives Does patient have a Living Will: No Does patient have a Durable POA for Healthcare: Yes - Code Status/Comfort Care Code Status Assessed: Yes Code Status: Full Code Critical Care: No Time Spent Managing PTS Care (In Minutes): 35
--- NOTE | 2021-06-22 15:31 | P.PN ---
Date of Service: 06/22/21 Subjective Patient with no new complaints. Clinical symptoms continued to improve. Spoke with the along with the son and [id number] are regarding patient's current clinical status. Continue to diurese the patient. Trying improve her volume status and hopefully once we extubate tomorrow we do not have to reintubate like Sunday. Weaning off of sedation to see what neurologic status is like. Creatinine is improved. Repeat labs and chest x-ray in the morning. Review of Systems 10-point ROS is otherwise unremarkable Physical Examination - Vital Signs Reviewed - Physical Exam General: Other (Patient is intubated and sedated) Respiratory: Diminished, Crackles/rales Cardiovascular: Regular rate/rhythm, Normal S1 S2, Systolic murmur Gastrointestinal: Normal bowel sounds, Soft and benign, Non-distended, No tenderness Musculoskeletal: No clubbing, No tenderness, Swelling Neurological: Other (Moves all extremities and follows commands) - Studies Medications List Reviewed: Yes Assessment & Plan - Problems (Diagnosis) (1) Acute CHF (congestive heart failure) Current Visit: Yes Status: Acute Qualifiers: Heart failure type: combined systolic and diastolic Qualified Code(s): I50.41 - Acute combined systolic (congestive) and diastolic (congestive) heart failure (2) Atrial fibrillation Current Visit: No Status: Acute Qualifiers: Atrial fibrillation type: unspecified Qualified Code(s): I48.91 - Unspecified atrial fibrillation (3) CAD (coronary artery disease) Current Visit: No Status: Chronic Qualifiers: Coronary Disease-Associated Artery/Lesion type: [place] artery [place] vs. transplanted heart: [place] heart Associated angina: unspecified whether angina present Qualified Code(s): I25.10 - Atherosclerotic heart disease of [place] coronary artery without angina pectoris (4) COPD (chronic obstructive pulmonary disease) Current Visit: No Status: Chronic Qualifiers: COPD type: chronic bronchitis (5) HLD (hyperlipidemia) Current Visit: No Status: Chronic Qualifiers: Hyperlipidemia type: unspecified Qualified Code(s): E78.5 - Hyperlipidemia, unspecified (6) Hypertension Current Visit: No Status: Chronic Qualifiers: Hypertension type: primary hypertension Qualified Code(s): I10 - Essential (primary) hypertension (7) Hypothyroidism Current Visit: No Status: Chronic Qualifiers: Hypothyroidism type: unspecified Qualified Code(s): E03.9 - Hypothyroidism, unspecified (8) Zuorp-ul-htxxhou kidney injury Current Visit: Yes Status: Acute - Plan Continue plan of care as mentioned below: 1. Weaning off of sedation. Reassessing neurologic status. As long as following commands and respiratory status is stable then possible extubation in the morning. Await pulmonary recommendations in AM 2. Patient atrial fibrillation with rapid ventricular response. Rate is controlled in the 80s and 90s. On amiodarone drip. Will add beta-reno therapy 3. Renal function is stable; creatinine is improved-continue monitoring volume status closely. Monitor diuresing 4. Cardiology consultation, Pulmonary consultation, Nephrology consultation appreciated. Echocardiogram has been reviewed. Patient with ejection fraction of 40%. 5. Continue with diuresing at this time 6. Strict I's and O's 7. Repeating CXR 8. Daily weights 9. Updated regarding patient's plan of care. 10. GI and DVT prophylaxis Discharge Plan: Inpatient rehabilitation Plan to discharge in: Greater than 2 days - Advance Directives Does patient have a Living Will: No Does patient have a Durable POA for Healthcare: Yes - Code Status/Comfort Care Code Status Assessed: Yes Code Status: Full Code Critical Care: No Time Spent Managing PTS Care (In Minutes): 35
[2021-06-22] MEDS ORDERED: METOPROLOL TARTRATE 5 MG/5 ML INJ IV ONE (16:52)
[2021-06-22] MEDS: METOPROLOL TARTRATE 5 MG/5 ML INJ IV SCH (16:53)
[2021-06-22] MEDS: FUROSEMIDE 40 MG/4 ML VIAL IV SCH (21:00)
[2021-06-22] MEDS: ATORVASTATIN 20 MG TAB PO SCH (21:00)
[2021-06-23] MEDS ORDERED: FUROSEMIDE 20 MG/ 2ML VIAL ONE (00:42)
[2021-06-23] MEDS ORDERED: METHYLPREDNISOLONE 40 MG INJ ONE ×3 (00:43→23:03)
[2021-06-23] MEDS ORDERED: METOPROLOL TARTRATE 5 MG/5 ML INJ IV ONE ×3 (00:43→09:24)
[2021-06-23] MEDS ORDERED: ATORVASTATIN 20 MG TAB ONE (00:43)
[2021-06-23] MEDS: METOPROLOL TARTRATE 5 MG/5 ML INJ IV SCH ×5 (00:52→22:00)
[2021-06-23] MEDS: METHYLPREDNISOLONE 40 MG INJ IV SCH ×3 (00:53→23:10)
[2021-06-23] MEDS ORDERED: propofoL 1,000 MG/100 ML VIAL IV ONE (03:43)
[2021-06-23] MEDS: propofoL 1,000 MG/100 ML VIAL IV PRN (03:44)
[2021-06-23] MEDS ORDERED: AMIODARONE IN DEXTROSE,ISO-OSM 0 MG/0 ML BAG IV ONE (06:30)
[2021-06-23] MEDS: LEVOTHYROXINE SOD 0.025 MG TAB PO SCH (06:30)
--- NOTE | 2021-06-23 07:33 | RAD REPORT ---
EXAM DESCRIPTION: Felicia Single View06/23/2021 5:32 am CLINICAL HISTORY: Respiratory failure COMPARISON: June 21 FINDINGS: Endotracheal tube with its tip 1 centimeter above the top of the aortic arch. Nasogastric tube in stomach. Small to moderate bilateral pleural effusions with bibasilar atelectasis. Mild additional bilateral pulmonary opacities represent pulmonary edema or pneumonia. Heart is mildly enlarged
[2021-06-23] MEDS ORDERED: ARFORMOTEROL TARTRATE 15 MCG/2 ML VIAL.NEB ONE ×2 (07:52→19:50)
[2021-06-23] MEDS: ARFORMOTEROL TARTRATE 15 MCG/2 ML VIAL.NEB NEB SCH ×2 (07:55→19:40)
[2021-06-23] MEDS ORDERED: CLOPIDOGREL 75 MG TABLET ONE (09:23)
[2021-06-23] MEDS ORDERED: CEFTRIAXONE 1000 MG/VIAL ONE ×2 (09:23→09:25)
[2021-06-23] MEDS ORDERED: THIAMINE HCL 100 MG TABLET ONE (09:23)
[2021-06-23] MEDS ORDERED: PANTOPRAZOLE 40 MG INJ ONE (09:23)
[2021-06-23] MEDS ORDERED: ASPIRIN EC 81 MG TAB PO ONE (09:23)
[2021-06-23] MEDS ORDERED: FOLIC ACID 1 MG TABLET ONE (09:23)
[2021-06-23] MEDS ORDERED: NA CHLORIDE 0.9% 50 ML ONE (09:24)
[2021-06-23] MEDS ORDERED: NS 0.9% VIAL 10 ML ONE (09:24)
[2021-06-23] MEDS ORDERED: FUROSEMIDE 40 MG/4 ML VIAL ONE ×2 (09:24→23:03)
[2021-06-23] MEDS: CLOPIDOGREL 75 MG TABLET PO SCH (10:05)
[2021-06-23] MEDS: ASPIRIN EC 81 MG TAB PO SCH (10:05)
[2021-06-23] MEDS: SOD FERRIC GLUC COMPLX/SUCROSE 125 MG in NA CHLORIDE 0.9% 100 ML IV SCH (10:06)
[2021-06-23] MEDS: THIAMINE HCL 100 MG TABLET PO SCH (10:06)
[2021-06-23] MEDS: FOLIC ACID 1 MG TABLET PO SCH (10:06)
[2021-06-23] MEDS: CEFTRIAXONE 1,000 MG in NA CHLORIDE 0.9% 50 ML IVPB SCH (10:07)
[2021-06-23] MEDS: PANTOPRAZOLE 40 MG INJ IVP SCH (10:08)
[2021-06-23 11:06] LABS: Absolute Lymphocytes (CBC) 1.8 K/uL (0.7-4.9); Basophils % 0.1 % (0-1.3); Hematocrit 29.9 % (36.0-45.0); Lymphocytes % 9.1 % (15.3-44.8); MPV 8.2 fL (7.6-11.3); RBC Red Blood Cell Count 3.56 M/uL (3.86-4.86)
[2021-06-23 11:25] LABS: Magnesium 2.5 mg/dL (1.8-2.4); Phosphorus 3.9 mg/dL (2.5-4.9); Potassium 3.3 mmol/L (3.5-5.1)
[2021-06-23] MEDS: FUROSEMIDE 40 MG/4 ML VIAL IV SCH ×2 (11:35→23:07)
[2021-06-23] MEDS: AMIODARONE HCL 900 MG in Dextrose 5%-Water 482 ML IV SCH (11:37)
--- NOTE | 2021-06-23 12:22 | P.PN ---
Subjective Date of Service: 06/23/21 Primary Care Provider: Dr. Ruano(He asked for Hospitalist to see); Cardiology- Dr. Shaver Chief Complaint: Respiratory failure Subjective: No new changes (Still intubated on vent, more lethargic today, recently taken off propofol drip Nursing staff reports aspirate around mouth and neck this morning Chest x-ray shows NG tube still in stomach and intact Stable bilateral opacities noted Still on SIMV) Physical Examination - Vital Signs Temperature: 98.3 F Blood Pressure: 114/67 Pulse: 98 Respirations: 20 Pulse Ox (%): 96 - Physical Exam General: Other (Still sedated) HEENT: Atraumatic, Normocephalic, PERRLA (et tube, NG tube in situ) Neck: Supple, 2+ carotid pulse no bruit Respiratory: Diminished, Crackles/rales Cardiovascular: Regular rate/rhythm, Normal S1 S2, Edema, Irregular heart rate/rhythm Gastrointestinal: Normal bowel sounds, Soft and benign, Non-distended Musculoskeletal: No clubbing, Swelling Neurological: Other (Sedated) - Studies Medications List Reviewed: Yes Assessment And Plan - Current Problems (Diagnosis) (1) Acute respiratory failure Current Visit: Yes Status: Acute (2) Acute CHF (congestive heart failure) Current Visit: Yes Status: Acute Qualifiers: Heart failure type: combined systolic and diastolic Qualified Code(s): I50.41 - Acute combined systolic (congestive) and diastolic (congestive) heart failure (3) Pnebh-mi-cxbiofu kidney injury Current Visit: Yes Status: Acute (4) Atrial fibrillation Current Visit: No Status: Acute Qualifiers: Atrial fibrillation type: unspecified Qualified Code(s): I48.91 - Unspecified atrial fibrillation (5) Hypertension Current Visit: No Status: Chronic Qualifiers: Hypertension type: primary hypertension Qualified Code(s): I10 - Essential (primary) hypertension (6) Hypothyroidism Current Visit: No Status: Chronic Qualifiers: Hypothyroidism type: unspecified Qualified Code(s): E03.9 - Hypothyroidism, unspecified Physician Review Additional Text: COVID: Negative Initial Chest x-ray: COMPARISON: May 03 TECHNIQUE: AP portable chest image was obtained 06/17/2021 3:24 am . FINDINGS: No dense mass or consolidations seen. There is diffusely prominent interstitial opacification increased in prominence over the prior study. Heart size is prominent but stable. Central vasculature is fractionally increased. Small bilateral pleural effusions are suspected. No pneumothorax. No acute bony abnormality seen. No acute aortic findings suspected. IMPRESSION: CHF/volume overload is suspected. No new mass or consolidation. ECHO: DIASTOLIC (NORMALS) SYSTOLIC (NORMALS) IVSd 1.1 (0.6-1.2) LA Diam 3.6 (1.9-4.0) LVEF 40-45% LVIDd 3.6 (3.5-5.7) LVIDs 2.7 (2.0-3.5) %FS 25% LVPWd 1.1 (0.6-1.2) Ao Diam 2.6 (2.0-3.7) 2 DIMENSIONAL ASSESSMENT: RIGHT ATRIUM: NORMAL LEFT ATRIUM: ENLARGED RIGHT VENTRICLE: NORMAL LEFT VENTRICLE: MILDLY DEPRESSED TRICUSPID VALVE: MITRAL VALVE: MTRAL ANNULAR CALCIFICATION PULMONIC VALVE: NORMAL AORTIC VALVE: NORMAL PERICARDIAL EFFUSION: MILD AORTIC ROOT: NORMAL LEFT VENTRICULAR WALL MOTION: MILD GLOBAL HYPEKINESIS DOPPLER/COLOR FLOW: SEE BELOW COMMENTS: MILDLY DEPRESSED LEFT VENTRICULAR EJECTION FRACTION 40-45%. MILD MITRAL AND TRICUSPID REGURGITATION. ATRIAL FIBRILLATION. Follow up CXR 06/19/2021: COMPARISON: June 18, June 17 TECHNIQUE: AP portable chest image was obtained 06/19/2021 6:20 am . FINDINGS: ET tube is in place with the tip top of the aortic arch 3 cm above the ailyn. This is well positioned. NG/OG tube in place extending well below the diaphragm, off the field of view. No new tube or line identified. Bilateral airspace opacification is present in the mid and lower lung spicer. When cereal imaging is compared, patient has shown overall improvement. No progression has occurred. Cardiomegaly remains but is slightly improved. Upper lobe vasculature shows a decrease in prominence but not full resolution. No pneumothorax present. No enlarging pleural effusion. IMPRESSION: CHF/volume overload pattern shows improvement on serial review of imaging. Significant CHF findings remain. Physical Exam: GENERAL: Patient remains intubated. Slight agitation noted. VITAL SIGNS: Reviewed. HEENT: Neck supple LUNGS: Decreased at the bases. Patient intubated. Currently on the ventilator. HEART: Irregular irregular with A. fib rate around 100-120 ABDOMEN: Soft, nontender, and nondistended. Positive bowel sounds. No hepatosplenomegaly was noted. EXTREMITIES: Edema to the lower extremities improved. NEUROLOGIC: Patient responds to pain and voice. SKIN: Edema to the lower extremities improved Ambriz catheter in place. Impression: Dyspnea, edema to the lower extremity secondary to acute respiratory failure with hypoxia related to acute on chronic diastolic CHF complicated with atrial fibrillation with RVR and COPD exacerbation Acute on chronic renal disease stage III History of hypertension Elevated INR Hypothyroidism History of carotid arterial disease with carotid enterectomy GERD Hyperlipidemia History of breast cancer with mastectomy Anemia chronic disease with iron def. anemia Fatty liver Plan: Continue plan of care as mentioned below: 1. Weaning off of sedation. Reassessing neurologic status. May need to stay off sedation today and follow 2. Patient atrial fibrillation with rapid ventricular response. On amiodarone drip. Continue added beta-reno therapy 3. Renal function is stable; creatinine is improved-continue monitoring volume status closely. Monitor diuresing 4. Cardiology consultation, Pulmonary consultation, Nephrology consultation appreciated. Echocardiogram has been reviewed. Patient with ejection fraction of 40%. 5. Still elevated creatinine, continue diuresis continue with diuresing at this time 6. Strict I's and O's 7. Repeating CXR 8. Daily weights 9. Updated regarding patient's plan of care. 10. GI and DVT prophylaxis Dyspnea, edema to the lower extremity secondary to acute respiratory failure with hypoxia related to acute on chronic diastolic CHF complicated with atrial fibrillation with RVR and COPD exacerbation: Acute on chronic renal disease stage III: History of hypertension: Elevated INR: Initial INR elevated at 2.9. INR improved to 1.5. Currently not on anticoagulation at this time due to initial elevated INR. Hypothyroidism: Continue levothyroxine 25 mcg daily. History of carotid arterial disease with carotid enterectomy: Continue aspirin 81 mg daily and Plavix 75 mg daily. GERD: Continue Protonix 40 mg daily Hyperlipidemia: LDL 50. Continue Lipitor 20 mg and Tricor 160 mg daily. History of breast cancer with mastectomy: No blood pressure is on the left side. Will monitor this closely. Anemia of chronic disease with iron deficiency anemia: Maintain hemoglobin above 8.0. Iron studies reviewed. Will start IV iron. Will monitor CBC. Fatty liver: Will check liver ultrasound. Will check hepatitis and HIV.
[2021-06-23 12:23] LABS: Anisocytosis 1+; Blood Morphology Comment NOTED (NOT SEEN); Platelet Estimate ADEQ; Polychromasia SLIGHT
[2021-06-23 12:24] LABS: Ovalocytes SLIGHT; Target Cells FEW
--- NOTE | 2021-06-23 12:29 | P.PN ---
Subjective Date of Service: 06/23/21 Primary Care Provider: Dr. Ruano(He asked for Hospitalist to see); Cardiology- Dr. Shaver Chief Complaint: Respiratory failure Patient is improving more alert and responsive on 35% FiO2 Review of Systems is unable to be obtained Physical Examination - Vital Signs Temperature: 98.3 F Blood Pressure: 114/67 Pulse: 98 Respirations: 20 Pulse Ox (%): 96 - Physical Exam General: Alert, Cooperative Respiratory: Clear to auscultation bilaterally, Diminished Cardiovascular: No edema, Abnormal pulses, Irregular heart rate/rhythm - Studies Medications List Reviewed: Yes Assessment & Plan - Problems (Diagnosis) (1) Respiratory failure Current Visit: No Status: Acute Plan: Respiratory failure patient condition is improving creatinine improving BUN elevated elevated white count is probably from the steroid patient has bilateral pleural effusion endotracheal tube satisfactory sputum cultures pending continue to wean blood pressure stable Qualifiers: Chronicity: acute Respiratory failure complication: hypoxia and hypercapnia Qualified Code(s): J96.01 - Acute respiratory failure with hypoxia; J96.02 - Acute respiratory failure with hypercapnia
[2021-06-23] MEDS ORDERED: POTASSIUM 25 MEQ EFFERV TAB PO ONE (12:57)
[2021-06-23] MEDS ORDERED: POTASSIUM 25 MEQ EFFERV TAB ONE (13:25)
[2021-06-23 14:13] LABS: Urine Appearance CLEAR (Clear); Urine Bilirubin NEGATIVE (Negative); Urine Blood 2+ (Negative); Urine Color YELLOW (Yellow); Urine Glucose NEGATIVE (Negative); Urine Protein NEGATIVE (Negative); Urine Urobilinogen 0.2 mg/dL (0.2-1.0); Urine pH 5.5 (5.0-7.0)
[2021-06-23 14:16] LABS: Urine Microscopic Reflex ORDER UMIC
[2021-06-23 14:25] LABS: Urine Bacteria NONE SEEN /HPF (<20)
--- NOTE | 2021-06-23 14:51 | PN ---
Date of Progress Note: 06/23/2021 Subjective: The patient was admitted with acute kidney injury secondary to cardiorenal anasarca with respiratory failure. The patient was diuresed aggressively over the night. The patient down on FiO 2 35%. She starts being waking up. Physical Examination: Vital Signs: Blood pressure 114/67, pulse of 98, afebrile. The patient had good urine output of 4 L , negative of 1100. Chest: Faint rales bilateral base. Heart: S1, S2. Systolic murmur. Abdomen: Soft, nontender. Extremity: Plus edema. Neuro: More prominent on the upper extremity. The patient follow simple command, still p.r.n. sedat ion. Laboratory Data: WBC 20.1, H and H 9.5/29.9. Sodium 147, potassium 3.3, bicarb 30, BUN 80, creatini ne down to 1.9, GFR 25, calcium 8.7, phosphorus 3.9, magnesium 2.5, albumin 2.7. Corrected calcium i s 9.5. Current Medications: The patient on include: 1.Aspirin. 2.Ceftriaxone. 3.IV iron. 4.Plavix. 5.Amiodarone. 6.Atorvastatin. 7.Lasix 40 b.i.d. 8.Levothyroxine. 9.Solu-Medrol. Assessment And Plan: 1.Acute kidney injury secondary to cardiorenal, still on the over volume side. We will continue diu resis. We will monitor the patient closely. 2.Leukocytosis, questionable secondary to aspiration pneumonia. We will discuss regarding advanced her coverage for . 3.Hypertension, controlled, optimal. Continue current treatment. We will utilize blood pressure fo r more diuresis. 4.Congestive heart failure with exacerbation as above. 5.Hypokalemia. We will supplement. 6.Leukocytosis as above. We will send for monte culture. 7.Hypernatremia. I am going to go ahead and increase free water to 200 every 4 hours. DONTE/MARK Voice ID: [id number] Report ID: [id number]
[2021-06-23] MEDS ORDERED: LORazepam 2 MG/ML VIAL ONE (17:01)
[2021-06-23] MEDS: LORazepam 2 MG/ML VIAL IV PRN (17:08)
[2021-06-23] MEDS ORDERED: MIDAZOLAM HCL 2 MG/2 ML INJ ONE (17:48)
[2021-06-23] MEDS: MIDAZOLAM HCL 2 MG/2 ML INJ IV PRN (17:48)
[2021-06-23] MEDS: HYDROMORPHONE HCL 2 MG/ML inj IV PRN (18:32)
[2021-06-23] MEDS ORDERED: HYDROMORPHONE HCL 2 MG/ML inj ONE (18:32)
[2021-06-23 18:43] LABS: HBsAG Nonreactive (Nonreactive)
[2021-06-23] MEDS: ATORVASTATIN 20 MG TAB PO SCH (21:00)
[2021-06-24] MEDS: METOPROLOL TARTRATE 5 MG/5 ML INJ IV SCH ×4 (04:00→21:59)
--- NOTE | 2021-06-24 06:07 | P.PN ---
Subjective Date of Service: 06/24/21 Primary Care Provider: Dr. Ruano(He asked for Hospitalist to see); Cardiology- Dr. Shaver Chief Complaint: Respiratory failure Subjective: Other (Remains intubated/sedated.) Physical Examination - Vital Signs Temperature: 97.7 F Blood Pressure: 135/75 Pulse: 107 Respirations: 13 Pulse Ox (%): 97 - Physical Exam General: Other (sedated) HEENT: Other (intubated) Neck: Supple Respiratory: Other (symmetric chest expansion) Cardiovascular: No rubs, No murmurs Gastrointestinal: Soft and benign Musculoskeletal: No clubbing Integumentary: No warmth Neurological: Other (sedated) Urinary: Ambriz catheter External genitalia: Deferred Rectal: Deferred - Studies Medications List Reviewed: Yes Assessment And Plan - Plan # ANDREA 2/2 ischemic ATN 2/2 CRS1 from rapid afib Baseline SCr 1.0 as of 05/09/2021 SCr 1.4 on adm, worsened further to 2.6 d/t recurrent rapid afib w/ relative/borderline hypotensive episodes, improved to 1.6 today Urinalysis unremarkable except for +Ca oxalate crystals No overt proteinuria CPK wnl, no rhabdo Urine chem on 06/21 showed ATN D/t ATN, keep fluid balance net even per day Switch feeding tube formula to Nepro Cont protonix as she is receiving high dose steroids HR control < 110 bpm Strict I/O Monitor renal panel # Hypotension likely 2/2 rapid afib Resolved Hx of Htn Monitor # Acute respi failure 2/2 Afib w/ RVR Hx of chronic diastolic HF +trop leak; BNP sig elevated TTE on 06/17/21 showed LVEF 40-45%, LA dilated Chest CT on 09/2020 showed no e/o pulmo Htn HR better controlled w/ Amio gtt Cont IV lasix to lessen lung V/Q mismatch IV rate control med conversion to po regimen per Cardiology # Hypernatremia Corrected serum Na 147 Wt 100 kgs Total body water Free water deficit 2.3L Insensible water loss 1L/d Urine water loss > 1L/d Give D5W 180 cc/hr x 24 hrs # Na overload w/ BLE edema Increase lasix to 60 mg IV bid Avoid Na-containing IV/carrier fluid # Anemia 1u pRBC received on 06/21
[2021-06-24 06:42] LABS: Absolute Lymphocytes (CBC) 1.7 K/uL (0.7-4.9); Basophils % 0.1 % (0-1.3); Hematocrit 30.1 % (36.0-45.0); Lymphocytes % 9.2 % (15.3-44.8); MPV 8.3 fL (7.6-11.3); RBC Red Blood Cell Count 3.55 M/uL (3.86-4.86)
[2021-06-24 07:05] LABS: Albumin 2.7 g/dL (3.4-5.0); Bilirubin Total 0.8 mg/dL (0.2-1.0); Potassium 3.8 mmol/L (3.5-5.1); Protein, Total 5.9 g/dL (6.4-8.2)
[2021-06-24] MEDS ORDERED: ARFORMOTEROL TARTRATE 15 MCG/2 ML VIAL.NEB ONE ×2 (08:02→19:59)
[2021-06-24] MEDS: ARFORMOTEROL TARTRATE 15 MCG/2 ML VIAL.NEB NEB SCH ×2 (08:18→21:00)
[2021-06-24] MEDS: ASPIRIN EC 81 MG TAB PO SCH (09:00)
--- NOTE | 2021-06-24 09:01 | RAD REPORT ---
EXAM DESCRIPTION: RAD - Chest Single View - 06/24/2021 5:44 am CLINICAL HISTORY: resp failure Chest pain. COMPARISON: Chest Single View dated 06/23/2021; Chest Single View dated 06/22/2021; Chest Single Vie w dated 06/21/2021; Abdomen 1 View (KUB) dated 06/20/2021 FINDINGS: Portable technique limits examination quality. Tip of the endotracheal tube is about 1 cm above the superior aortic arch level. It appears stable in position since the comparative study. Enteric tube coils in the stomach. Bilateral pulmonary opaciti es are present, greatest in the lung bases, slightly improved. The heart is mildly enlarged in size. Small volume pleural effusions. IMPRESSION: Fractional improvement lung aeration since comparative study noted.
[2021-06-24] MEDS ORDERED: CEFTRIAXONE 1000 MG/VIAL ONE (10:34)
[2021-06-24] MEDS ORDERED: ASPIRIN 81 MG CHEWABLE TABLET ONE (10:34)
[2021-06-24] MEDS ORDERED: FUROSEMIDE 100 MG/10 ML VIAL IV ONE (10:34)
[2021-06-24] MEDS ORDERED: CLOPIDOGREL 75 MG TABLET ONE (10:34)
[2021-06-24] MEDS ORDERED: METHYLPREDNISOLONE 40 MG INJ ONE ×2 (10:34→20:51)
[2021-06-24] MEDS ORDERED: THIAMINE HCL 100 MG TABLET ONE (10:34)
[2021-06-24] MEDS ORDERED: FOLIC ACID 1 MG TABLET ONE (10:34)
[2021-06-24] MEDS ORDERED: NA CHLORIDE 0.9% 50 ML ONE (10:35)
[2021-06-24] MEDS ORDERED: LORazepam 2 MG/ML VIAL ONE ×3 (10:35→23:52)
[2021-06-24] MEDS ORDERED: PANTOPRAZOLE 40 MG INJ ONE (10:35)
[2021-06-24] MEDS: THIAMINE HCL 100 MG TABLET PO SCH (10:37)
[2021-06-24] MEDS: FOLIC ACID 1 MG TABLET PO SCH (10:37)
[2021-06-24] MEDS: CLOPIDOGREL 75 MG TABLET PO SCH (10:37)
[2021-06-24] MEDS: PANTOPRAZOLE 40 MG INJ IVP SCH (10:38)
[2021-06-24] MEDS: METHYLPREDNISOLONE 40 MG INJ IV SCH ×2 (10:38→21:00)
[2021-06-24] MEDS: CEFTRIAXONE 1,000 MG in NA CHLORIDE 0.9% 50 ML IVPB SCH (10:38)
[2021-06-24] MEDS: LORazepam 2 MG/ML VIAL IV PRN ×2 (10:39→17:57)
[2021-06-24] MEDS: SOD FERRIC GLUC COMPLX/SUCROSE 125 MG in NA CHLORIDE 0.9% 100 ML IV SCH (10:39)
[2021-06-24] MEDS: FUROSEMIDE 40 MG/4 ML VIAL IV SCH ×2 (10:42→16:26)
[2021-06-24] MEDS ORDERED: D5W 1,000 ML IV ONE ×3 (10:48→23:45)
[2021-06-24] MEDS: D5W 1,000 ML IV SCH ×3 (10:48→23:00)
[2021-06-24] MEDS: LEVOTHYROXINE SOD 0.025 MG TAB PO SCH (11:09)
[2021-06-24] MEDS ORDERED: METOPROLOL TARTRATE 5 MG/5 ML INJ IV ONE (11:10)
--- NOTE | 2021-06-24 11:26 | P.PN ---
Subjective Date of Service: 06/24/21 Primary Care Provider: Dr. Ruano(He asked for Hospitalist to see); Cardiology- Dr. Shaver Chief Complaint: Respiratory failure Patient is still not very responsive only on a spontaneous breathing trial which she is tolerating well improvement in her chest x-ray patient has copious secretions Review of Systems is unable to be obtained Physical Examination - Vital Signs Temperature: 97.7 F Blood Pressure: 105/71 Pulse: 113 Respirations: 13 Pulse Ox (%): 97 - Physical Exam General: Delirious Respiratory: Clear to auscultation bilaterally, Diminished Cardiovascular: No edema, Regular rate/rhythm - Studies Medications List Reviewed: Yes Assessment & Plan - Problems (Diagnosis) (1) Respiratory failure Current Visit: No Status: Acute Plan: Respiratory failure patient is improving tolerating spontaneous breathing trial chest x-ray is also improving renal function improving-mildly hyponatremic white count declining continue to monitor stable another trial of weaning and extubation problem with secretions evaluate for LTAC Qualifiers: Chronicity: acute Respiratory failure complication: hypoxia and hypercapnia Qualified Code(s): J96.01 - Acute respiratory failure with hypoxia; J96.02 - Acute respiratory failure with hypercapnia Physician Review Additional Text: COVID: Negative Initial Chest x-ray: COMPARISON: May 03 TECHNIQUE: AP portable chest image was obtained 06/17/2021 3:24 am . FINDINGS: No dense mass or consolidations seen. There is diffusely prominent interstitial opacification increased in prominence over the prior study. Heart size is prominent but stable. Central vasculature is fractionally increased. Sm all bilateral pleural effusions are suspected. No pneumothorax. No acute bony abnormality seen. No acute aortic findings suspected. IMPRESSION: CHF/volume overload is suspected. No new mass or consolidation. ECHO: DIASTOLIC (NORMALS) SYSTOLIC (NORMALS) IVSd 1.1 (0.6-1.2) LA Diam 3.6 (1.9-4.0) LVEF 40-45% LVIDd 3.6 (3.5-5.7) LVIDs 2.7 (2.0-3.5) %FS 25% LVPWd 1.1 (0.6-1.2) Ao Diam 2.6 (2.0-3.7) 2 DIMENSIONAL ASSESSMENT: RIGHT ATRIUM: NORMAL LEFT ATRIUM: ENLARGED RIGHT VENTRICLE: NORMAL LEFT VENTRICLE: MILDLY DEPRESSED TRICUSPID VALVE: MITRAL VALVE: MTRAL ANNULAR CALCIFICATION PULMONIC VALVE: NORMAL AORTIC VALVE: NORMAL PERICARDIAL EFFUSION: MILD AORTIC ROOT: NORMAL LEFT VENTRICULAR WALL MOTION: MILD GLOBAL HYPEKINESIS DOPPLER/COLOR FLOW: SEE BELOW COMMENTS: MILDLY DEPRESSED LEFT VENTRICULAR EJECTION FRACTION 40-45%. MILD MITRAL AND TRICUSPID REGURGITATION. ATRIAL FIBRILLATION. Follow up CXR 06/19/2021: COMPARISON: June 18, June 17 TECHNIQUE: AP portable chest image was obtained 06/19/2021 6:20 am . FINDINGS: ET tube is in place with the tip top of the aortic arch 3 cm above the ailyn. This is well positioned. NG/OG tube in place extending well below the diaphragm, off the field of view. No new tube or line identified. Bilateral airspace opacification is present in the mid and lower lung spicer. When cereal imaging is compared, patient has shown overall improvement. No progression has occurred. Cardiomegaly remains but is slightly improved. Upper lobe vasculature shows a decrease in prominence but not full resolution. No pneumothorax present. No enlarging pleural effusion. IMPRESSION: CHF/volume overload pattern shows improvement on serial review of imaging. Significant CHF findings remain. Physical Exam: GENERAL: Patient remains intubated. Slight agitation noted. VITAL SIGNS: Reviewed. HEENT: Neck supple LUNGS: Decreased at the bases. Patient intubated. Currently on the ventilator. HEART: Irregular irregular with A. fib rate around 100-120 ABDOMEN: Soft, nontender, and nondistended. Positive bowel sounds. No hepatosplenomegaly was noted. EXTREMITIES: Edema to the lower extremities improved. NEUROLOGIC: Patient responds to pain and voice. SKIN: Edema to the lower extremities improved Ambriz catheter in place. Impression: Dyspnea, edema to the lower extremity secondary to acute respiratory failure with hypoxia related to acute on chronic diastolic CHF complicated with atrial fibrillation with RVR and COPD exacerbation Acute on chronic renal disease stage III History of hypertension Elevated INR Hypothyroidism History of carotid arterial disease with carotid enterectomy GERD Hyperlipidemia History of breast cancer with mastectomy Anemia chronic disease with iron def. anemia Fatty liver Plan: Continue plan of care as mentioned below: 1. Weaning off of sedation. Reassessing neurologic status. May need to stay off sedation today and follow 2. Patient atrial fibrillation with rapid ventricular response. On amiodarone drip. Continue added beta-reno therapy 3. Renal function is stable; creatinine is improved-continue monitoring volume status closely. Monitor diuresing 4. Cardiology consultation, Pulmonary consultation, Nephrology consultation appreciated. Echocardiogram has been reviewed. Patient with ejection fraction of 40%. 5. Still elevated creatinine, continue diuresis continue with diuresing at this time 6. Strict I's and O's 7. Repeating CXR 8. Daily weights 9. Updated regarding patient's plan of care. 10. GI and DVT prophylaxis Dyspnea, edema to the lower extremity secondary to acute respiratory failure with hypoxia related to acute on chronic diastolic CHF complicated with atrial fibrillation with RVR and COPD exacerbation: Acute on chronic renal disease stage III: History of hypertension: Elevated INR: Initial INR elevated at 2.9. INR improved to 1.5. Currently not on anticoagulation at this time due to initial elevated INR. Hypothyroidism: Continue levothyroxine 25 mcg daily. History of carotid arterial disease with carotid enterectomy: Continue aspirin 81 mg daily and Plavix 75 mg daily. GERD: Continue Protonix 40 mg daily Hyperlipidemia: LDL 50. Continue Lipitor 20 mg and Tricor 160 mg daily. History of breast cancer with mastectomy: No blood pressure is on the left side. Will monitor this closely. Anemia of chronic disease with iron deficiency anemia: Maintain hemoglobin above 8.0. Iron studies reviewed. Will start IV iron. Will monitor CBC. Fatty liver: Will check liver ultrasound. Will check hepatitis and HIV.
[2021-06-24] MEDS ORDERED: HYDROMORPHONE HCL 2 MG/ML inj ONE ×2 (14:32→20:51)
[2021-06-24] MEDS: HYDROMORPHONE HCL 2 MG/ML inj IV PRN ×2 (14:37→21:00)
--- NOTE | 2021-06-24 15:11 | P.PN ---
Subjective Date of Service: 06/24/21 Primary Care Provider: Dr. Ruano(He asked for Hospitalist to see); Cardiology- Dr. Shaver Chief Complaint: Respiratory failure Subjective: No new changes (MORE AWAKE BUT STILL DROWSY , OFF SEDATION) Physical Examination - Vital Signs Temperature: 98.1 F Blood Pressure: 130/79 Pulse: 99 Respirations: 20 Pulse Ox (%): 98 - Physical Exam General: Delirious HEENT: Atraumatic, Normocephalic, PERRLA Neck: Supple, 2+ carotid pulse no bruit Cardiovascular: Normal pulses, Irregular heart rate/rhythm Gastrointestinal: Normal bowel sounds, Soft and benign, Non-distended Musculoskeletal: No clubbing, No swelling Integumentary: No rashes - Studies Medications List Reviewed: Yes Assessment And Plan - Current Problems (Diagnosis) (1) Acute respiratory failure Current Visit: Yes Status: Acute (2) Acute CHF (congestive heart failure) Current Visit: Yes Status: Acute Qualifiers: Heart failure type: combined systolic and diastolic Qualified Code(s): I50.41 - Acute combined systolic (congestive) and diastolic (congestive) heart failure (3) Ipbgv-mg-ungozzz kidney injury Current Visit: Yes Status: Acute (4) Atrial fibrillation Current Visit: No Status: Acute Qualifiers: Atrial fibrillation type: unspecified Qualified Code(s): I48.91 - Unspecified atrial fibrillation (5) Hypertension Current Visit: No Status: Chronic Qualifiers: Hypertension type: primary hypertension Qualified Code(s): I10 - Essential (primary) hypertension (6) Hypothyroidism Current Visit: No Status: Chronic Qualifiers: Hypothyroidism type: unspecified Qualified Code(s): E03.9 - Hypothyroidism, unspecified Physician Review Additional Text: COVID: Negative Initial Chest x-ray: COMPARISON: May 03 TECHNIQUE: AP portable chest image was obtained 06/17/2021 3:24 am . FINDINGS: No dense mass or consolidations seen. There is diffusely prominent interstitial opacification increased in prominence over the prior study. Heart size is prominent but stable. Central vasculature is fractionally increased. Small bilateral pleural effusions are suspected. No pneumothorax. No acute bony abnormality seen. No acute aortic findings suspected. IMPRESSION: CHF/volume overload is suspected. No new mass or consolidation. ECHO: DIASTOLIC (NORMALS) SYSTOLIC (NORMALS) IVSd 1.1 (0.6-1.2) LA Diam 3.6 (1.9-4.0) LVEF 40-45% LVIDd 3.6 (3.5-5.7) LVIDs 2.7 (2.0-3.5) %FS 25% LVPWd 1.1 (0.6-1.2) Ao Diam 2.6 (2.0-3.7) 2 DIMENSIONAL ASSESSMENT: RIGHT ATRIUM: NORMAL LEFT ATRIUM: ENLARGED RIGHT VENTRICLE: NORMAL LEFT VENTRICLE: MILDLY DEPRESSED TRICUSPID VALVE: MITRAL VALVE: MTRAL ANNULAR CALCIFICATION PULMONIC VALVE: NORMAL AORTIC VALVE: NORMAL PERICARDIAL EFFUSION: MILD AORTIC ROOT: NORMAL LEFT VENTRICULAR WALL MOTION: MILD GLOBAL HYPEKINESIS DOPPLER/COLOR FLOW: SEE BELOW COMMENTS: MILDLY DEPRESSED LEFT VENTRICULAR EJECTION FRACTION 40-45%. MILD MITRAL AND TRICUSPID REGURGITATION. ATRIAL FIBRILLATION. Impression: Dyspnea, edema to the lower extremity secondary to acute respiratory failure with hypoxia related to acute on chronic diastolic CHF complicated with atrial fibrillation with RVR and COPD exacerbation Acute on chronic renal disease stage III History of hypertension Elevated INR Hypothyroidism History of carotid arterial disease with carotid enterectomy GERD Hyperlipidemia History of breast cancer with mastectomy Anemia chronic disease with iron def. anemia Fatty liver Plan: Continue vent settings, currently on pressure support Continue plan for possible extubation today Continue to hold off sedation We will resume as needed IV Ativan/Versed if unable to extubate today Agree with pulmonary to consider LTACcase management team discussed with to initiate plan Renal function improving Still fluid overload, continue Lasix, nephrology discussed with to increase to 3 times daily 40 mg IV Serum sodium still elevated at 147, continue free water/D5W at 50 cc/h Noted EF of 40% on echo, continue with diuresis Rate still uncontrolled in the 110s, increase amiodarone drip We discussed with cardiology to switch to p.o. amiodarone Blood pressure remained stable continue to follow H&H remained stable, continue to follow
--- NOTE | 2021-06-24 15:31 | RAD REPORT ---
EXAM DESCRIPTION: RAD - Abdomen 1 View (KUB) - 06/24/2021 3:22 pm CLINICAL HISTORY: OGT placement COMPARISON: Abdomen 1 View (KUB) dated 06/20/2021; Abdomen 1 View (KUB) dated 04/30/2021 FINDINGS: Nonobstructive bowel gas pattern. No acute osseous abnormality.Visualized lungs are unrema rkable.No abnormal calcifications. Enteric tube in the stomach. Fusion hardware in the lower spine. IMPRESSION: Nonobstructive bowel gas pattern. Enteric tube tip overlies the stomach.
[2021-06-24] MEDS: AMIODARONE HCL 900 MG in Dextrose 5%-Water 482 ML IV SCH (16:17)
[2021-06-24] MEDS ORDERED: FUROSEMIDE 40 MG/4 ML VIAL ONE (16:23)
[2021-06-24] MEDS ORDERED: ENOXAPARIN 30 MG/0.3 ML SQ ONE (19:03)
[2021-06-24] MEDS: ENOXAPARIN 30 MG/0.3 ML SQ SCH (19:07)
[2021-06-24] MEDS ORDERED: ATORVASTATIN 10 MG TAB ONE (20:53)
[2021-06-24] MEDS: ATORVASTATIN 20 MG TAB PO SCH (21:00)
[2021-06-25] MEDS: HYDROMORPHONE HCL 2 MG/ML inj IV PRN (03:36)
[2021-06-25] MEDS: METOPROLOL TARTRATE 5 MG/5 ML INJ IV SCH ×4 (04:20→22:16)
[2021-06-25] MEDS: D5W 1,000 ML IV SCH ×3 (04:21→16:54)
[2021-06-25 05:18] LABS: Absolute Lymphocytes (CBC) 1.4 K/uL (0.7-4.9); Hematocrit 27.5 % (36.0-45.0); Lymphocytes % 8.8 % (15.3-44.8); MPV 8.1 fL (7.6-11.3); RBC Red Blood Cell Count 3.25 M/uL (3.86-4.86)
[2021-06-25 05:35] LABS: Albumin 2.5 g/dL (3.4-5.0); Bilirubin Total 0.6 mg/dL (0.2-1.0); Potassium 3.4 mmol/L (3.5-5.1); Protein, Total 5.5 g/dL (6.4-8.2)
[2021-06-25 05:40] LABS: Magnesium 2.1 mg/dL (1.8-2.4); Phosphorus 4.2 mg/dL (2.5-4.9)
[2021-06-25] MEDS: LEVOTHYROXINE SOD 0.025 MG TAB PO SCH (06:06)
[2021-06-25] MEDS: LORazepam 2 MG/ML VIAL IV PRN ×2 (06:07)
--- NOTE | 2021-06-25 06:21 | P.PN ---
Subjective Date of Service: 06/26/21 Primary Care Provider: Dr. Ruano(He asked for Hospitalist to see); Cardiology- Dr. Shaver Chief Complaint: Respiratory failure Subjective: Other (Extubated today.) Physical Examination - Vital Signs Temperature: 98.0 F Blood Pressure: 116/58 Pulse: 87 Respirations: 14 Pulse Ox (%): 98 - Physical Exam General: Mild distress HEENT: Atraumatic, Normocephalic Neck: Supple, JVD not distended Respiratory: Rhonchi/gurgles, Other (symmetric chest expansion) Cardiovascular: No rubs, No murmurs Gastrointestinal: Soft and benign, No guarding Musculoskeletal: No clubbing, Swelling (BLE) Integumentary: No warmth Neurological: Normal tone, Other (+lethargy) Urinary: Ambriz catheter External genitalia: Deferred Rectal: Deferred - Studies Medications List Reviewed: Yes Assessment And Plan - Plan # ANDREA 2/2 ischemic ATN 2/2 CRS1 from rapid afib Baseline SCr 1.0 as of 05/09/2021 SCr 1.4 on adm, worsened further to 2.6 d/t recurrent rapid afib w/ relative/borderline hypotensive episodes, improved to 1.3 today Urinalysis unremarkable except for +Ca oxalate crystals No overt proteinuria CPK wnl, no rhabdo Urine chem on 06/21 showed ATN D/t ATN, keep fluid balance net even per day Start po fluid intake as able IV fluids as below Cont protonix as she is receiving high dose steroids HR control < 110 bpm Strict I/O Monitor renal panel # Hypernatremia Resolved, corrected serum Na 140 Wt 100 kgs Total body water Free water deficit 2.3L Insensible water loss 1L/d Urine water loss > 1L/d Resume D5W gtt at 70 cc/hr Other IV drip/s running at 30 cc/hr Aim for total fluid intake about 2.5L/d or 100 cc/hr to maintain normonatremia # Hypotension likely 2/2 rapid afib Resolved Hx of Htn Monitor # Acute respi failure 2/2 Afib w/ RVR Hx of chronic diastolic HF +trop leak; BNP sig elevated TTE on 06/17/21 showed LVEF 40-45%, LA dilated Chest CT on 09/2020 showed no e/o pulmo Htn HR better controlled w/ Amio gtt IV rate control med conversion to po regimen per Cardiology # Na overload w/ BLE edema Cont Lasix 60 mg IV bid Avoid Na-containing IV/carrier fluid # Anemia Transfuse prn
[2021-06-25] MEDS: AMIODARONE HCL 900 MG in Dextrose 5%-Water 482 ML IV SCH ×2 (07:57→23:30)
[2021-06-25] MEDS: ARFORMOTEROL TARTRATE 15 MCG/2 ML VIAL.NEB NEB SCH ×2 (08:15→20:00)
[2021-06-25] MEDS: CEFTRIAXONE 1,000 MG in NA CHLORIDE 0.9% 50 ML IVPB SCH (09:10)
[2021-06-25] MEDS: SOD FERRIC GLUC COMPLX/SUCROSE 125 MG in NA CHLORIDE 0.9% 100 ML IV SCH (09:10)
[2021-06-25] MEDS: PANTOPRAZOLE 40 MG INJ IVP SCH (09:10)
[2021-06-25] MEDS: FUROSEMIDE 40 MG/4 ML VIAL IV SCH ×2 (09:11→16:54)
[2021-06-25] MEDS: METHYLPREDNISOLONE 40 MG INJ IV SCH ×2 (09:11→20:41)
[2021-06-25] MEDS: FOLIC ACID 1 MG TABLET PO SCH (09:12)
[2021-06-25] MEDS: ASPIRIN EC 81 MG TAB PO SCH (09:12)
[2021-06-25] MEDS: CLOPIDOGREL 75 MG TABLET PO SCH (09:12)
[2021-06-25] MEDS: THIAMINE HCL 100 MG TABLET PO SCH (09:12)
[2021-06-25] MEDS: ENOXAPARIN 30 MG/0.3 ML SQ SCH (09:12)
[2021-06-25] MEDS ORDERED: KCL 20 MEQ/100 mL IVPB 20 MEQ/100 ML BAG IV SCH (10:00)
[2021-06-25] MEDS ORDERED: VITAL AF 1,000 ML BOT RTH SCH (10:00)
--- NOTE | 2021-06-25 10:50 | RAD REPORT ---
EXAM DESCRIPTION: RAD - Chest Single View - 06/25/2021 6:07 am CLINICAL HISTORY: resp failure Chest pain. COMPARISON: Abdomen 1 View (KUB) dated 06/24/2021; Chest Single View dated 06/24/2021; Chest Single View dated 06/23/2021; Chest Single View dated 06/22/2021 FINDINGS: Portable technique limits examination quality. Tip of the ET tube is about 1.5 cm above aortic arch. Enteric tube descends into the abdomen. Bilater al pulmonary opacities, greatest in the right lung base, unchanged. The heart is mildly enlarged.The ICU was notified at the time of dictation.
--- NOTE | 2021-06-25 11:17 | P.PN ---
Subjective Date of Service: 06/25/21 Primary Care Provider: Dr. Ruano(He asked for Hospitalist to see); Cardiology- Dr. Shaver Chief Complaint: Respiratory failure Subjective: No new changes (More awake, still intubated and on vent Spouse at bedside discussed with) Physical Examination - Vital Signs Temperature: 97 F Blood Pressure: 120/55 Pulse: 79 Respirations: 15 Pulse Ox (%): 98 - Physical Exam General: Alert, Delirious HEENT: Atraumatic, Normocephalic, Other (Oral ET tube) Neck: Supple, 2+ carotid pulse no bruit, JVD not distended Respiratory: Diminished, Crackles/rales Cardiovascular: Normal S1 S2, Abnormal S3, Edema Gastrointestinal: Normal bowel sounds, Soft and benign, Non-distended Musculoskeletal: No clubbing, Swelling Urinary: Ambriz catheter - Studies Medications List Reviewed: Yes Assessment And Plan - Current Problems (Diagnosis) (1) Acute respiratory failure Current Visit: Yes Status: Acute (2) Acute CHF (congestive heart failure) Current Visit: Yes Status: Acute Qualifiers: Heart failure type: combined systolic and diastolic Qualified Code(s): I50.41 - Acute combined systolic (congestive) and diastolic (congestive) heart failure (3) Gfqfe-vn-axyuumy kidney injury Current Visit: Yes Status: Acute (4) Atrial fibrillation Current Visit: No Status: Acute Qualifiers: Atrial fibrillation type: unspecified Qualified Code(s): I48.91 - Unspecified atrial fibrillation (5) Hypertension Current Visit: No Status: Chronic Qualifiers: Hypertension type: primary hypertension Qualified Code(s): I10 - Essential (primary) hypertension (6) Hypothyroidism Current Visit: No Status: Chronic Qualifiers: Hypothyroidism type: unspecified Qualified Code(s): E03.9 - Hypothyroidism, unspecified Physician Review Additional Text: COVID: Negative Initial Chest x-ray: COMPARISON: May 03 TECHNIQUE: AP portable chest image was obtained 06/17/2021 3:24 am . FINDINGS: No dense mass or consolidations seen. There is diffusely prominent interstitial opacification increased in prominence over the prior study. Heart size is prominent but stable. Central vasculature is fractionally increased. Small bilateral pleural effusions are suspected. No pneumothorax. No acute bony abnormality seen. No acute aortic findings suspected. IMPRESSION: CHF/volume overload is suspected. No new mass or consolidation. ECHO: DIASTOLIC (NORMALS) SYSTOLIC (NORMALS) IVSd 1.1 (0.6-1.2) LA Diam 3.6 (1.9-4.0) LVEF 40-45% LVIDd 3.6 (3.5-5.7) LVIDs 2.7 (2.0-3.5) %FS 25% LVPWd 1.1 (0.6-1.2) Ao Diam 2.6 (2.0-3.7) 2 DIMENSIONAL ASSESSMENT: RIGHT ATRIUM: NORMAL LEFT ATRIUM: ENLARGED RIGHT VENTRICLE: NORMAL LEFT VENTRICLE: MILDLY DEPRESSED TRICUSPID VALVE: MITRAL VALVE: MTRAL ANNULAR CALCIFICATION PULMONIC VALVE: NORMAL AORTIC VALVE: NORMAL PERICARDIAL EFFUSION: MILD AORTIC ROOT: NORMAL LEFT VENTRICULAR WALL MOTION: MILD GLOBAL HYPEKINESIS DOPPLER/COLOR FLOW: SEE BELOW COMMENTS: MILDLY DEPRESSED LEFT VENTRICULAR EJECTION FRACTION 40-45%. MILD MITRAL AND TRICUSPID REGURGITATION. ATRIAL FIBRILLATION. Impression: Dyspnea, edema to the lower extremity secondary to acute respiratory failure with hypoxia related to acute on chronic diastolic CHF complicated with atrial fibrillation with RVR and COPD exacerbation Acute on chronic renal disease stage III History of hypertension Elevated INR Hypothyroidism History of carotid arterial disease with carotid enterectomy GERD Hyperlipidemia History of breast cancer with mastectomy Anemia chronic disease with iron def. anemia Fatty liver Plan: Continue vent settings, we do with Continue diuresis to continue to optimize respiratory status Continue to hold off sedation but will restart if felt weaning protocol Agree with pulmonary to consider LTACcase management team discussed with to initiate plan Renal function improving Still fluid overload both achieving negative fluid balance with diuresis, continue Lasix, Serum sodium improving, continue low-dose D5W Noted EF of 40% on echo, continue with diuresis Improving heart rate with RVR, continue amiodarone drip Blood pressure remained stable continue to follow H&H remained stable, continue to follow Will replete potassium and magnesium today
[2021-06-25 16:35] LABS: Arterial Blood Carboxyhemoglob 1.6 % (0-1.5); Blood O2 Saturation 96.4 % (92-98.5)
[2021-06-25] MEDS ORDERED: ZIPRASIDONE MESYLA 20 MG/VIAL IM ONE (17:28)
[2021-06-25] MEDS: WATER FOR INJ,STERILE 10 ML IM PRN (18:01)
[2021-06-25 18:20] LABS: Arterial Blood Carboxyhemoglob 1.3 % (0-1.5); Blood Gas Oxyhemoglobin 90.7 % (94-97); Blood O2 Saturation 92.9 % (92-98.5)
[2021-06-25] MEDS: ATORVASTATIN 20 MG TAB PO SCH (20:41)
[2021-06-26] MEDS ORDERED: ZIPRASIDONE MESYLA 20 MG/VIAL IM ONE (01:47)
[2021-06-26] MEDS: WATER FOR INJ,STERILE 10 ML IM PRN ×2 (02:05→18:18)
[2021-06-26] MEDS: METOPROLOL TARTRATE 5 MG/5 ML INJ IV SCH ×4 (04:15→22:00)
[2021-06-26 05:12] LABS: Absolute Lymphocytes (CBC) 1.6 K/uL (0.7-4.9); Basophils % 0.1 % (0-1.3); Lymphocytes % 7.2 % (15.3-44.8); MPV 8.3 fL (7.6-11.3); RBC Red Blood Cell Count 3.41 M/uL (3.86-4.86)
[2021-06-26 05:18] VITALS: BMI 37.8
[2021-06-26] MEDS: LEVOTHYROXINE SOD 0.025 MG TAB PO SCH (05:24)
[2021-06-26 05:45] LABS: Albumin 2.5 g/dL (3.4-5.0); Bilirubin Total 0.7 mg/dL (0.2-1.0); Potassium 3.7 mmol/L (3.5-5.1); Protein, Total 5.6 g/dL (6.4-8.2)
[2021-06-26 05:46] LABS: Arterial Blood Carboxyhemoglob 1.6 % (0-1.5); Blood Gas Oxyhemoglobin 94.1 % (94-97); Blood O2 Saturation 96.7 % (92-98.5)
[2021-06-26 05:48] LABS: White Blood Cell Scan OK (OK)
[2021-06-26 05:49] LABS: Blood Morphology Comment NOT SEEN (NOT SEEN); Platelet Estimate ADEQ
[2021-06-26] MEDS: D5W 1,000 ML IV SCH ×2 (06:36→22:42)
--- NOTE | 2021-06-26 07:33 | P.PN ---
Subjective Date of Service: 06/26/21 Primary Care Provider: Dr. Ruano(He asked for Hospitalist to see); Cardiology- Dr. Shaver Chief Complaint: Respiratory failure Subjective: Other (Bed-bound. Has not started eating.) Physical Examination - Vital Signs Temperature: 97.2 F Blood Pressure: 123/66 Pulse: 70 Respirations: 19 Pulse Ox (%): 100 - Physical Exam General: Other (acutely ill) HEENT: Atraumatic, Normocephalic Neck: Supple Respiratory: Other (Symmetric chest expansion) Cardiovascular: No rubs, No murmurs Gastrointestinal: Soft and benign, No guarding Musculoskeletal: No clubbing, Swelling Integumentary: No warmth Neurological: Normal tone Lymphatics: No axilla or inguinal lymphadenopathy Urinary: Ambriz catheter External genitalia: Deferred Rectal: Deferred - Studies Medications List Reviewed: Yes Assessment And Plan - Plan # ANDREA 2/2 ischemic ATN 2/2 CRS1 from rapid afib Baseline SCr 1.0 as of 05/09/2021 SCr 1.4 on adm, worsened further to 2.6 d/t recurrent rapid afib w/ relative/borderline hypotensive episodes, improved to 1.3 today Urinalysis unremarkable except for +Ca oxalate crystals No overt proteinuria CPK wnl, no rhabdo Urine chem on 06/21 showed ATN D/t ATN, keep fluid balance net even per day Start po fluid intake as able. If unable to start po intake by tomorrow, do Clinimix or NG tube feeding for the time being. IV fluids as below Cont protonix as she is receiving high dose steroids HR control < 110 bpm Strict I/O Monitor renal panel # Hypernatremia Resolved Wt 100 kgs Total body water Free water deficit 2.3L Insensible water loss 1L/d Urine water loss > 1L/d Cont D5W gtt at 70 cc/hr PO fluid intake as able Other IV drip/s running at 30 cc/hr Aim for total fluid intake about 2.5L/d or 100 cc/hr to maintain normonatremia # Na overload w/ BLE edema Cont Lasix 60 mg IV bid Avoid Na-containing IV/carrier fluid # Hypotension likely 2/2 rapid afib Resolved Hx of Htn Monitor # Acute respi failure 2/2 Afib w/ RVR Hx of chronic diastolic HF +trop leak; BNP sig elevated TTE on 06/17/21 showed LVEF 40-45%, LA dilated Chest CT on 09/2020 showed no e/o pulmo Htn HR better controlled w/ Amio gtt IV rate control med conversion to po regimen per Cardiology # Anemia Transfuse prn
[2021-06-26] MEDS: ARFORMOTEROL TARTRATE 15 MCG/2 ML VIAL.NEB NEB SCH ×2 (08:06→19:50)
--- NOTE | 2021-06-26 08:49 | P.PN ---
Subjective Date of Service: 06/26/21 Primary Care Provider: Dr. Ruano(He asked for Hospitalist to see); Cardiology- Dr. Shaver Chief Complaint: Respiratory failure Subjective: No new changes, New changes (Status post extubated yesterday, developed agitation and confusion post bed to improve with Geodon On BiPAP now) Physical Examination - Vital Signs Temperature: 97.2 F Blood Pressure: 123/66 Pulse: 70 Respirations: 19 Pulse Ox (%): 100 - Physical Exam General: Other (Drowsy, opens eyes ) HEENT: Atraumatic, Normocephalic, PERRLA Neck: Supple, JVD not distended Respiratory: Normal air movement, Diminished Cardiovascular: Normal S1 S2, Edema, Irregular heart rate/rhythm Gastrointestinal: Normal bowel sounds, Soft and benign, Non-distended Musculoskeletal: No clubbing, No swelling Neurological: Normal speech, Normal strength at 5/5 x4 extr - Studies Medications List Reviewed: Yes Assessment And Plan - Current Problems (Diagnosis) (1) Acute respiratory failure Current Visit: Yes Status: Acute (2) Acute CHF (congestive heart failure) Current Visit: Yes Status: Acute Qualifiers: Heart failure type: combined systolic and diastolic Qualified Code(s): I50.41 - Acute combined systolic (congestive) and diastolic (congestive) heart failure (3) Rkkie-yg-nejwtwn kidney injury Current Visit: Yes Status: Acute (4) Atrial fibrillation Current Visit: No Status: Acute Qualifiers: Atrial fibrillation type: unspecified Qualified Code(s): I48.91 - Unspecified atrial fibrillation (5) Hypertension Current Visit: No Status: Chronic Qualifiers: Hypertension type: primary hypertension Qualified Code(s): I10 - Essential (primary) hypertension (6) Hypothyroidism Current Visit: No Status: Chronic Qualifiers: Hypothyroidism type: unspecified Qualified Code(s): E03.9 - Hypothyroidism, unspecified - Plan COVID: Negative Initial Chest x-ray: COMPARISON: May 03 TECHNIQUE: AP portable chest image was obtained 06/17/2021 3:24 am . FINDINGS: No dense mass or consolidations seen. There is diffusely prominent interstitial opacification increased in prominence over the prior study. Heart size is prominent but stable. Central vasculature is fractionally increased. Small bilateral pleural effusions are suspected. No pneumothorax. No acute bony abnormality seen. No acute aortic findings suspected. IMPRESSION: CHF/volume overload is suspected. No new mass or consolidation. ECHO: DIASTOLIC (NORMALS) SYSTOLIC (NORMALS) IVSd 1.1 (0.6-1.2) LA Diam 3.6 (1.9-4.0) LVEF 40-45% LVIDd 3.6 (3.5-5.7) LVIDs 2.7 (2.0-3.5) %FS 25% LVPWd 1.1 (0.6-1.2) Ao Diam 2.6 (2.0-3.7) 2 DIMENSIONAL ASSESSMENT: RIGHT ATRIUM: NORMAL LEFT ATRIUM: ENLARGED RIGHT VENTRICLE: NORMAL LEFT VENTRICLE: MILDLY DEPRESSED TRICUSPID VALVE: MITRAL VALVE: MTRAL ANNULAR CALCIFICATION PULMONIC VALVE: NORMAL AORTIC VALVE: NORMAL PERICARDIAL EFFUSION: MILD AORTIC ROOT: NORMAL LEFT VENTRICULAR WALL MOTION: MILD GLOBAL HYPEKINESIS DOPPLER/COLOR FLOW: SEE BELOW COMMENTS: MILDLY DEPRESSED LEFT VENTRICULAR EJECTION FRACTION 40-45%. MILD MITRAL AND TRICUSPID REGURGITATION. ATRIAL FIBRILLATION. Impression: Dyspnea, edema to the lower extremity secondary to acute respiratory failure with hypoxia related to acute on chronic diastolic CHF complicated with atrial fibrillation with RVR and COPD exacerbation Acute on chronic renal disease stage III History of hypertension Elevated INR Hypothyroidism History of carotid arterial disease with carotid enterectomy GERD Hyperlipidemia History of breast cancer with mastectomy Anemia chronic disease with iron def. anemia Fatty liver Plan: Improving respiratory symptoms although slow pattern Continue BiPAP, will wean as tolerated Continue to hold sedatives reports use Geodon as needed agitation Continue diuresis Renal function improving Continue to replace potassium and magnesium Start clear liquids when able to tolerate off BiPAP RVR much improved, switch amiodarone drip to p.o. INR is still mildly elevated, still continue to hold Eliquis until INR normalizes Agree with pulmonary to consider LTACcase management team discussed with to initiate plan Serum sodium improving, continue low-dose D5W Noted EF of 40% on echo, continue with diuresis Blood pressure remained stable continue to follow H&H remained stable, continue to follow Time Spent Managing PTS Care (In Minutes): 35
[2021-06-26] MEDS ORDERED: WATER FOR INJ,STERILE 10 ML IM PRN (08:52)
[2021-06-26] MEDS ORDERED: ZIPRASIDONE MESYLA 20 MG/VIAL IM PRN (08:52)
[2021-06-26] MEDS: ASPIRIN EC 81 MG TAB PO SCH (09:00)
[2021-06-26] MEDS: THIAMINE HCL 100 MG TABLET PO SCH (09:00)
[2021-06-26] MEDS: CLOPIDOGREL 75 MG TABLET PO SCH (09:00)
[2021-06-26] MEDS: FOLIC ACID 1 MG TABLET PO SCH (09:00)
[2021-06-26] MEDS: ENOXAPARIN 30 MG/0.3 ML SQ SCH (09:55)
[2021-06-26] MEDS: CEFTRIAXONE 1,000 MG in NA CHLORIDE 0.9% 50 ML IVPB SCH (09:55)
[2021-06-26] MEDS: SOD FERRIC GLUC COMPLX/SUCROSE 125 MG in NA CHLORIDE 0.9% 100 ML IV SCH (09:56)
[2021-06-26] MEDS: FUROSEMIDE 40 MG/4 ML VIAL IV SCH (09:56)
[2021-06-26] MEDS: PANTOPRAZOLE 40 MG INJ IVP SCH (09:57)
[2021-06-26] MEDS: METHYLPREDNISOLONE 40 MG INJ IV SCH (09:59)
--- NOTE | 2021-06-26 11:36 | P.PN ---
Subjective Date of Service: 06/25/21 (TV) Primary Care Provider: Dr. Ruano(He asked for Hospitalist to see); Cardiology- Dr. Shaver Chief Complaint: Respiratory failure Improving tolerating SBT renal fucntion has improved/ PT extubated Review of Systems is unable to be obtained Physical Examination - Vital Signs Temperature: 97.2 F Blood Pressure: 117/59 Pulse: 65 Respirations: 21 Pulse Ox (%): 100 - Studies Medications List Reviewed: Yes Assessment & Plan - Problems (Diagnosis) (1) Respiratory failure Current Visit: No Status: Acute Plan: Resp failure ot extubated tolerated SBT well,Extubated Ro function has improved sig/ MEds reviewed/Dc Steroids am/ Pt on BIPAP Qualifiers: Chronicity: acute Respiratory failure complication: hypoxia and hypercapnia Qualified Code(s): J96.01 - Acute respiratory failure with hypoxia; J96.02 - Acute respiratory failure with hypercapnia
--- NOTE | 2021-06-26 14:44 | PN ---
Date of Progress Note: 06/24/2021 Ms. Jaffe remains intubated, respiratory failure. Plan for LTAC because of prolonged respi ratory failure and intubation. Remains in atrial fibrillation at 1 mg/min of amiodarone and I agree with that. She is still getting diuresed for congestive heart failure that is diastolic with a nicholas l ejection fraction. Her other issues including CVD and dyslipidemia are stable. She is status post right carotid endarterectomy. She has also had recent COVID. We will continue to follow her as nee ded. As far as the AFib is concerned, continue IV amiodarone for now. CHAR/MODL Voice ID: [id number] Report ID: [id number]
[2021-06-26] MEDS: AMIODARONE HCL 900 MG in Dextrose 5%-Water 482 ML IV SCH (14:57)
[2021-06-26] MEDS: ATORVASTATIN 20 MG TAB PO SCH (20:54)
[2021-06-27] MEDS: METOPROLOL TARTRATE 5 MG/5 ML INJ IV SCH ×4 (03:55→21:30)
[2021-06-27 05:04] LABS: Absolute Lymphocytes (CBC) 1.8 K/uL (0.7-4.9); Basophils % 0.1 % (0-1.3); Hematocrit 24.4 % (36.0-45.0); Lymphocytes % 15.4 % (15.3-44.8); MPV 8.1 fL (7.6-11.3); RBC Red Blood Cell Count 2.85 M/uL (3.86-4.86)
[2021-06-27 05:16] LABS: Magnesium 2.1 mg/dL (1.8-2.4); Phosphorus 2.6 mg/dL (2.5-4.9)
[2021-06-27 05:22] LABS: Albumin 2.1 g/dL (3.4-5.0); Bilirubin Total 0.5 mg/dL (0.2-1.0); Protein, Total 4.6 g/dL (6.4-8.2)
[2021-06-27 05:23] LABS: Potassium 2.7 mmol/L (3.5-5.1)
[2021-06-27] MEDS: KCL 20 MEQ/100 mL IVPB 20 MEQ/100 ML BAG IV SCH ×5 (05:58→18:40)
[2021-06-27] MEDS: LEVOTHYROXINE SOD 0.025 MG TAB PO SCH (05:58)
[2021-06-27] MEDS: ARFORMOTEROL TARTRATE 15 MCG/2 ML VIAL.NEB NEB SCH ×2 (06:15→19:50)
[2021-06-27] MEDS: AMIODARONE HCL 900 MG in Dextrose 5%-Water 482 ML IV SCH ×2 (07:12→21:55)
[2021-06-27] MEDS: SOD FERRIC GLUC COMPLX/SUCROSE 125 MG in NA CHLORIDE 0.9% 100 ML IV SCH (09:38)
[2021-06-27] MEDS: FUROSEMIDE 40 MG/4 ML VIAL IV SCH (09:38)
[2021-06-27] MEDS: THIAMINE HCL 100 MG TABLET PO SCH (09:40)
[2021-06-27] MEDS: ASPIRIN EC 81 MG TAB PO SCH (09:40)
[2021-06-27] MEDS: CLOPIDOGREL 75 MG TABLET PO SCH (09:40)
[2021-06-27] MEDS: FOLIC ACID 1 MG TABLET PO SCH (09:40)
[2021-06-27] MEDS: ENOXAPARIN 30 MG/0.3 ML SQ SCH (09:40)
[2021-06-27] MEDS: CEFTRIAXONE 1,000 MG in NA CHLORIDE 0.9% 50 ML IVPB SCH (11:00)
--- NOTE | 2021-06-27 12:14 | P.PN ---
Subjective Date of Service: 06/27/21 Primary Care Provider: Dr. Ruano(He asked for Hospitalist to see); Cardiology- Dr. Shaver Chief Complaint: Respiratory failure Subjective: Other (Patient doing well. Patient extubated on Sunday. Currently on BiPAP and high flow.) Physical Examination - Vital Signs Temperature: 97.2 F Blood Pressure: 101/61 Pulse: 79 Respirations: 24 Pulse Ox (%): 95 - Studies Medications List Reviewed: Yes Assessment & Plan Discharge Plan: LTAC Plan to discharge in: 24 Hours Physician Review Additional Text: COVID: Negative Initial Chest x-ray: COMPARISON: May 03 TECHNIQUE: AP portable chest image was obtained 06/17/2021 3:24 am . FINDINGS: No dense mass or consolidations seen. There is diffusely prominent interstitial opacification increased in prominence over the prior study. Heart size is prominent but stable. Central vasculature is fractionally increased. Small bilateral pleural effusions are suspected. No pneumothorax. No acute bony abnormality seen. No acute aortic findings suspected. IMPRESSION: CHF/volume overload is suspected. No new mass or consolidation. ECHO: DIASTOLIC (NORMALS) SYSTOLIC (NORMALS) IVSd 1.1 (0.6-1.2) LA Diam 3.6 (1.9-4.0) LVEF 40-45% LVIDd 3.6 (3.5-5.7) LVIDs 2.7 (2.0-3.5) %FS 25% LVPWd 1.1 (0.6-1.2) Ao Diam 2.6 (2.0-3.7) 2 DIMENSIONAL ASSESSMENT: RIGHT ATRIUM: NORMAL LEFT ATRIUM: ENLARGED RIGHT VENTRICLE: NORMAL LEFT VENTRICLE: MILDLY DEPRESSED TRICUSPID VALVE: MITRAL VALVE: MTRAL ANNULAR CALCIFICATION PULMONIC VALVE: NORMAL AORTIC VALVE: NORMAL PERICARDIAL EFFUSION: MILD AORTIC ROOT: NORMAL LEFT VENTRICULAR WALL MOTION: MILD GLOBAL HYPEKINESIS DOPPLER/COLOR FLOW: SEE BELOW COMMENTS: MILDLY DEPRESSED LEFT VENTRICULAR EJECTION FRACTION 40-45%. MILD MITRAL AND TRICUSPID REGURGITATION. ATRIAL FIBRILLATION. CT chest: COMPARISON: Thorax Wo Con dated 09/20/2020; Chest Single View dated 06/21/2021 FINDINGS: Moderate ground-glass lung opacities are present bilaterally moderate atelectasis in both posterior lung bases. Small to moderate bilateral pleural effusions. No pneumothorax. Enteric tube coils in the stomach. Tip of the ET tube is above the ailyn approximately at the level of the superior aortic arch. No axillary, mediastinal or hilar adenopathy. No concerning bony finding. No gross upper abdominal finding. All CT scans are performed using dose optimization technique as appropriate and may include automated exposure control or mA/KV adjustment according to patient size. IMPRESSION: Moderate bilateral ground-glass screws are present with small to moderate bilateral pleural effusions, likely related to pneumonia. Physical exam: GENERAL: Patient alert, cooperative. VITAL SIGNS: Reviewed vitals 95-100 systolic. HEENT: Neck supple NECK: Supple. No carotid bruits. No lymphadenopathy or thyromegaly. LUNGS: Clear anteriorly. Slightly decreased at the bases HEART: A. fib rate controlled ABDOMEN: Soft, nontender, and nondistended. Positive bowel sounds. No hepatosplenomegaly was noted. EXTREMITIES: Minimal edema to the lower extremities. SKIN: Minimal edema to the lower extremities Impression: Dyspnea, edema to the lower extremity secondary to acute respiratory failure with hypoxia related to acute on chronic diastolic CHF complicated with atrial fibrillation with RVR and COPD exacerbation Acute on chronic renal disease stage III History of hypertension Elevated INR Hypothyroidism History of carotid arterial disease with carotid enterectomy GERD Hyperlipidemia History of breast cancer with mastectomy Anemia chronic disease with iron def. anemia Fatty liver Plan: Patient has done well. Patient was extubated on Sunday. Patient remained stable on BiPAP and high flow. Continue to wean off oxygen. Patient has been weaned off steroid. Continue COPD medicationBrovana. Patient remains on IV amiodarone. Will discuss with cardiology on when this can be transition to oral medication. Continue Lipitor and aspirin along with Plavix for her CAD. Continue folic acid and thiamine. Continue levothyroxine. Physical therapy to assess ambulation. Continue IV diuresisLasix 60 mg daily. Patient remains on D5W. Will discuss with nephrology to further address. Spoke with at length concerning plan of care. Patient being evaluated for long-term acute care facility placement. Anticipate approval over the next 24 to 48 hours. CODE STATUS: Full code DVT prophylaxis: Lovenox [facility] care [id number] minutes: Spoke with at length. Awaiting approval for his long-term acute care facility placement. Spoke with foster care social worker concerning plan of care. Likely discharge to LTAC tomorrow. Time Spent Managing Pts Care (In Minutes): 55
--- NOTE | 2021-06-27 13:18 | RAD REPORT ---
EXAM DESCRIPTION: RAD - Chest Single View - 06/27/2021 1:00 pm CLINICAL HISTORY: follow up extubation, CHF COMPARISON: June 25 TECHNIQUE: AP portable chest image was obtained 06/27/2021 1:00 pm . FINDINGS: ET tube and NG tube have been removed. No new or progressive lung parenchymal finding. Patchy mid and lower lung field opacification remains . Heart size is upper normal. Vasculature remains mildly prominent. No pneumothorax present. No new o r enlarging pleural effusion. No acute bony abnormality seen. No acute aortic findings suspected. IMPRESSION: Removal of the ET tube and NG tube since last imaging. Pleural and parenchymal findings are stable.
[2021-06-27] MEDS: D5W 1,000 ML IV SCH (14:16)
[2021-06-27] MEDS: ATORVASTATIN 20 MG TAB PO SCH (21:00)
--- NOTE | 2021-06-27 23:03 | PN ---
Date of Progress Note: 06/27/2021 Chief Complaint: Acute kidney injury, nonoliguric, renal function previously was evaluated on Novemb er 2020 and creatinine was 1.0, which was the baseline. The developed acute kidney injury due to ATN and cardiorenal syndrome complicated by AFib with rapid ventricular response. The patient remain s in ICU. Review of Systems: Cannot be obtained due to patient's condition. Objective: Lungs: Clear to auscultation bilaterally. Heart: S1, S2. Abdomen: Soft, benign. Extremities: Slight edema. Lab Work: Hemoglobin 7.8, WBC 12.0, platelet count 296,000. Sodium 142, potassium 2.7, chloride 101 , CO2 34, BUN 44, creatinine 0.96, glucose 102, calcium 8.1. Impression And Plan: 1.Acute kidney injury. Renal function has improved over last several days. Baseline creatinine lev el is 1.0. Renal function improved to baseline. Creatinine level improved from 2.58 on June 21 to 0.96 on June 27. Continue to monitor electrolytes. The patient was found to have severe hy pokalemia today and received IV potassium replacement. Potassium level improved to 3.2. 2.Metabolic alkalosis secondary to diuretics. Bicarbonate level, total CO2 level increased to 34. Potassium replacement was started for hypokalemia and alleviate metabolic alkalosis. Continue to re- evaluate renal panel. EB/MODL Voice ID: [id number] Report ID: [id number]
[2021-06-28] MEDS: D5W 1,000 ML IV SCH (02:12)
[2021-06-28] MEDS: METOPROLOL TARTRATE 5 MG/5 ML INJ IV SCH ×2 (04:00→10:00)
[2021-06-28 05:20] LABS: Basophils % 0.1 % (0-1.3); Hematocrit 27.1 % (36.0-45.0); MPV 8.4 fL (7.6-11.3); RBC Red Blood Cell Count 3.15 M/uL (3.86-4.86)
[2021-06-28 05:30] LABS: Albumin 2.4 g/dL (3.4-5.0); Bilirubin Total 0.8 mg/dL (0.2-1.0); Magnesium 2.2 mg/dL (1.8-2.4); Potassium 3.3 mmol/L (3.5-5.1); Protein, Total 5.4 g/dL (6.4-8.2)
--- NOTE | 2021-06-28 05:52 | P.PN ---
Subjective Date of Service: 06/28/21 Primary Care Provider: Dr. Ruano(He asked for Hospitalist to see); Cardiology- Dr. Shaver Chief Complaint: Respiratory failure Subjective: Other (Patient remained stable. Currently on high flow at 40%.) Physical Examination - Vital Signs Temperature: 98 F Blood Pressure: 110/47 Pulse: 76 Respirations: 22 Pulse Ox (%): 99 - Studies Medications List Reviewed: Yes Assessment & Plan Discharge Plan: LTAC Plan to discharge in: 48 Hours Physician Review Additional Text: COVID: Negative Initial Chest x-ray: COMPARISON: May 03 TECHNIQUE: AP portable chest image was obtained 06/17/2021 3:24 am . FINDINGS: No dense mass or consolidations seen. There is diffusely prominent interstitial opacification increased in prominence over the prior study. Heart size is prominent but stable. Central vasculature is fractionally increased. Small bilateral pleural effusions are suspected. No pneumothorax. No acute bony abnormality seen. No acute aortic findings suspected. IMPRESSION: CHF/volume overload is suspected. No new mass or consolidation. ECHO: DIASTOLIC (NORMALS) SYSTOLIC (NORMALS) IVSd 1.1 (0.6-1.2) LA Diam 3.6 (1.9-4.0) LVEF 40-45% LVIDd 3.6 (3.5-5.7) LVIDs 2.7 (2.0-3.5) %FS 25% LVPWd 1.1 (0.6-1.2) Ao Diam 2.6 (2.0-3.7) 2 DIMENSIONAL ASSESSMENT: RIGHT ATRIUM: NORMAL LEFT ATRIUM: ENLARGED RIGHT VENTRICLE: NORMAL LEFT VENTRICLE: MILDLY DEPRESSED TRICUSPID VALVE: MITRAL VALVE: MTRAL ANNULAR CALCIFICATION PULMONIC VALVE: NORMAL AORTIC VALVE: NORMAL PERICARDIAL EFFUSION: MILD AORTIC ROOT: NORMAL LEFT VENTRICULAR WALL MOTION: MILD GLOBAL HYPEKINESIS DOPPLER/COLOR FLOW: SEE BELOW COMMENTS: MILDLY DEPRESSED LEFT VENTRICULAR EJECTION FRACTION 40-45%. MILD MITRAL AND TRICUSPID REGURGITATION. ATRIAL FIBRILLATION. CT chest: COMPARISON: Thorax Wo Con dated 09/20/2020; Chest Single View dated 06/21/2021 FINDINGS: Moderate ground-glass lung opacities are present bilaterally moderate atelectasis in both posterior lung bases. Small to moderate bilateral pleural effusions. No pneumothorax. Enteric tube coils in the stomach. Tip of the ET tube is above the ailyn approximately at the level of the superior aortic arch. No axillary, mediastinal or hilar adenopathy. No concerning bony finding. No gross upper abdominal finding. All CT scans are performed using dose optimization technique as appropriate and may include automated exposure control or mA/KV adjustment according to patient size. IMPRESSION: Moderate bilateral ground-glass screws are present with small to moderate bilateral pleural effusions, likely related to pneumonia. Follow up CXR 06/27/2021: COMPARISON: June 25 TECHNIQUE: AP portable chest image was obtained 06/27/2021 1:00 pm . FINDINGS: ET tube and NG tube have been removed. No new or progressive lung parenchymal finding. Patchy mid and lower lung field opacification remains. Heart size is upper normal. Vasculature remains mildly prominent. No pneumothorax present. No new or enlarging pleural effusion. No acute bony abnormality seen. No acute aortic findings suspected. IMPRESSION: Removal of the ET tube and NG tube since last imaging. Pleural and parenchymal findings are stable. Physical exam: GENERAL: Patient alert, cooperative. Stable on high flow at 40%. VITAL SIGNS: Reviewed vitals 95-100 systolic. HEENT: Neck supple NECK: Supple. No carotid bruits. No lymphadenopathy or thyromegaly. LUNGS: Decreased at the bases. Overall improved. Currently on high flow at 40%. HEART: A. fib rate controlled ABDOMEN: Soft, nontender, and nondistended. Positive bowel sounds. No hepatosplenomegaly was noted. EXTREMITIES: Minimal edema to the lower extremities. SKIN: Minimal edema to the lower extremities Impression: Dyspnea, edema to the lower extremity secondary to acute respiratory failure with hypoxia related to acute on chronic diastolic CHF complicated with atrial fibrillation with RVR and COPD exacerbation Acute on chronic renal disease stage III History of hypertension Elevated INR Hypothyroidism History of carotid arterial disease with carotid enterectomy GERD Hyperlipidemia History of breast cancer with mastectomy Anemia chronic disease with iron def. anemia Fatty liver Plan: Patient stable at this time. Patient was extubated on Sunday. Patient remains on high flow at 40%. Patient was weaned off steroid. Patient remains on COPD medicationBrovana. Patient remains on IV Rocephin to cover for opportunistic infection.. So far blood cultures negative. Patient remains on IV amiodarone. Will discuss with cardiology about switching her to oral medication. Continue Lipitor, aspirin and Plavix for her CAD. Continue folic acid and thiamine. Continue levothyroxine Renal function back to baseline. Patient remains on IV diuresisLasix 60 mg daily. Patient also on D5W. Will discuss with nephrology. Physical therapy and Occupational Therapy ordered. Spoke with at length concerning plan of care. Continue to pursue long- term acute care facility placement. Peer to peer to be done today to help support LTAC. CODE STATUS: Full code DVT prophylaxis: Lovenox [facility] [id number] minutes: Spoke with at length. Awaiting approval for his long-term acute care facility placement. Spoke with director social concerning plan of care. Anticipate approval for LTAC. Time Spent Managing Pts Care (In Minutes): 55
[2021-06-28] MEDS: LEVOTHYROXINE SOD 0.025 MG TAB PO SCH (06:36)
[2021-06-28 07:49] VITALS: O2SAT 100
[2021-06-28] MEDS: CEFTRIAXONE 1,000 MG in NA CHLORIDE 0.9% 50 ML IVPB SCH (07:53)
[2021-06-28] MEDS: FUROSEMIDE 40 MG/4 ML VIAL IV SCH (07:54)
[2021-06-28] MEDS: FOLIC ACID 1 MG TABLET PO SCH (07:54)
[2021-06-28] MEDS: CLOPIDOGREL 75 MG TABLET PO SCH (07:54)
[2021-06-28] MEDS: THIAMINE HCL 100 MG TABLET PO SCH (07:55)
[2021-06-28] MEDS: ASPIRIN EC 81 MG TAB PO SCH (07:55)
[2021-06-28] MEDS: ENOXAPARIN 30 MG/0.3 ML SQ SCH (07:55)
[2021-06-28] MEDS: ARFORMOTEROL TARTRATE 15 MCG/2 ML VIAL.NEB NEB SCH (07:56)
[2021-06-28] MEDS: KCL 20 MEQ/100 mL IVPB 20 MEQ/100 ML BAG IV SCH ×2 (08:01→10:26)
[2021-06-28] MEDS: AMIODARONE HCL 900 MG in Dextrose 5%-Water 482 ML IV SCH (13:25)
--- NOTE | 2021-06-28 14:06 | P.DS ---
Admission Date: 06/17/21 Discharge Date: 06/28/21 Primary Care Provider: Dr. Ruano(He asked for Hospitalist to see); Cardiology- Dr. Shaver Disposition: [facility] Discharge Condition: SERIOUS Reason for Admission: Respiratory failure Consultations: Cardiology-Dr. Griffin Pulmonary-Dr. Pablo Nephrology-Dr. Coley Procedures: COVID: Negative Initial Chest x-ray: COMPARISON: May 03 TECHNIQUE: AP portable chest image was obtained 06/17/2021 3:24 am . FINDINGS: No dense mass or consolidations seen. There is diffusely prominent interstitial opacification increased in prominence over the prior study. Heart size is prominent but stable. Central vasculature is fractionally increased. Small bilateral pleural effusions are suspected. No pneumothorax. No acute bony abnormality seen. No acute aortic findings suspected. IMPRESSION: CHF/volume overload is suspected. No new mass or consolidation. ECHO: DIASTOLIC (NORMALS) SYSTOLIC (NORMALS) IVSd 1.1 (0.6-1.2) LA Diam 3.6 (1.9-4.0) LVEF 40-45% LVIDd 3.6 (3.5-5.7) LVIDs 2.7 (2.0-3.5) %FS 25% LVPWd 1.1 (0.6-1.2) Ao Diam 2.6 (2.0-3.7) 2 DIMENSIONAL ASSESSMENT: RIGHT ATRIUM: NORMAL LEFT ATRIUM: ENLARGED RIGHT VENTRICLE: NORMAL LEFT VENTRICLE: MILDLY DEPRESSED TRICUSPID VALVE: MITRAL VALVE: MTRAL ANNULAR CALCIFICATION PULMONIC VALVE: NORMAL AORTIC VALVE: NORMAL PERICARDIAL EFFUSION: MILD AORTIC ROOT: NORMAL LEFT VENTRICULAR WALL MOTION: MILD GLOBAL HYPEKINESIS DOPPLER/COLOR FLOW: SEE BELOW COMMENTS: MILDLY DEPRESSED LEFT VENTRICULAR EJECTION FRACTION 40-45%. MILD MITRAL AND TRICUSPID REGURGITATION. ATRIAL FIBRILLATION. CT chest: COMPARISON: Thorax Wo Con dated 09/20/2020; Chest Single View dated 06/21/2021 FINDINGS: Moderate ground-glass lung opacities are present bilaterally moderate atelectasis in both posterior lung bases. Small to moderate bilateral pleural effusions. No pneumothorax. Enteric tube coils in the stomach. Tip of the ET tube is above the ailyn approximately at the level of the superior aortic arch. No axillary, mediastinal or hilar adenopathy. No concerning bony finding. No gross upper abdominal finding. All CT scans are performed using dose optimization technique as appropriate and may include automated exposure control or mA/KV adjustment according to patient size. IMPRESSION: Moderate bilateral ground-glass screws are present with small to moderate bilateral pleural effusions, likely related to pneumonia. Follow up CXR 06/27/2021: COMPARISON: June 25 TECHNIQUE: AP portable chest image was obtained 06/27/2021 1:00 pm . FINDINGS: ET tube and NG tube have been removed. No new or progressive lung parenchymal finding. Patchy mid and lower lung field opacification remains. Heart size is upper normal. Vasculature remains mildly prominent. No pneumothorax present. No new or enlarging pleural effusion. No acute bony abnormality seen. No acute aortic findings suspected. IMPRESSION: Removal of the ET tube and NG tube since last imaging. Pleural and parenchymal findings are stable. Medical Problem List: Dyspnea, edema to the lower extremity secondary to acute respiratory failure with hypoxia related to acute on chronic diastolic CHF complicated with atrial fibrillation with RVR and COPD exacerbation Acute on chronic renal disease stage III History of hypertension Elevated INR Hypothyroidism History of carotid arterial disease with carotid enterectomy GERD Hyperlipidemia History of breast cancer with mastectomy Anemia chronic disease with iron def. anemia Fatty liver Brief History of Present Illness: 71-year-old female with history of atrial fibrillation, chronic diastolic CHF, hypertension, hyperlipidemia. Patient presented with increasing shortness of breath. This has been present for the last 2 days. Difficulty breathing worsened today. She has reported increase in edema to the lower extremities. 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 Cardiology had increased her Lasix. Her condition did not improve. Patient reports some mild chest pain. Denies any nausea, vomiting or abdominal pain. Patient came to the ER for further evaluation. Patient found in acute distress. Patient required BiPAP. Blood pressure was initially low with atrial fibrillation noted with RVR with rate around 130-150. ER placed a central line. IV amiodarone was started. Blood pressure improved. On lab white count 11, hemoglobin 8.2. Platelet count 473. Sodium 143, potassium 4.6. BUN of 16, creatinine 1.4 with a GFR 37. Glucose 127. Troponin 0 0.04. INR elevated at 2.84. BMP 1463. Patient admitted to ICU for further evaluation and treatment. When saw the patient in ER, patient on BiPAP. Increase anxiety noted. Heart rate around 120-130. Patient on IV amiodarone. IV Lasix 80 mg to be given. Medication for agitation also to be given. Repeat blood pressure improved was initially around 90/60 now in the 120 systolic. Blood gases show pH is 7.3, PCO2 51, PO2 of 69. Hospital Course: Patient presented with dyspnea, edema to the lower extremities secondary to acute respiratory failure with hypoxia. Patient was admitted for treatment. Initially patient symptoms worsened. This required ICU admission with intubation. Patient also developed atrial fibrillation with RVR. During the course of her stay patient was evaluated by cardiology, pulmonology and nephrology. Her condition slowly improved. Patient was able to be extubated. Ejection fraction around 40 to 45%. Acute on chronic diastolic CHF was identified with COPD exacerbation. Patient was evaluated for long-term acute care facility. She was approved. Currently patient on high flow. She was extubated 3 days ago. Patient has done well. Patient remains on high flow at 40%. Patient has been weaned off steroid. Patient remains on IV Rocephin to cover for opportunistic infection. Blood cultures so far negative. Patient remains on COPD medication including Brovana. Patient remains on IV diuretic therapyLasix 60 mg daily with D5W. This could be weaned off to oral medication. For atrial fibrillation patient has improved. Rate now better controlled. Patient remains on IV amiodarone. This can be transitioned to oral amiodarone 400 mg 1 pill twice daily. This can be done at LTAC facility. Patient will continue with anticoagulation therapy at discharge. Patient presented with acute on chronic renal disease stage III. Nephrology was consulted. Patient has done well. Patient continues on D5W with IV diuresis. Nephrology adjusting medications. This can be continued at the LTAC facility. Patient with hypothyroidism. Overall stable. Patient remains on levothyroxine. Patient with history of carotid arterial disease with prior carotid enterectomy. Patient may continue with aspirin, Plavix, Lipitor. Medications may need to be further adjusted as the patient will likely require chronic anticoagulation therapy. Consider Plavix and Eliquis at final discharge. Patient with GERD. Patient may continue with Protonix 40 mg daily. Patient with anemia of chronic disease with iron deficiency. Patient may continue with iron supplementation. Patient with underlying fatty liver. Overall stable. Patient overall stable for transfer. Patient will be transferred to long-term acute care facility. Vital Signs/Physical Exam: Temp Pulse Resp BP Pulse Ox 98 F 87 25 H 102/51 L 100 12/21/21 09:41 06/28/21 10:00 06/28/21 10:00 06/28/21 10:00 06/28/21 10:00 General: Alert, In no apparent distress, Oriented x3, Cooperative HEENT: Atraumatic Neck: Supple Respiratory: Other (Mild crackles. Currently on high flow) Cardiovascular: Irregular heart rate/rhythm (A. fib rate controlled) Gastrointestinal: Normal bowel sounds, No tenderness, No masses, No rebound, No guarding Musculoskeletal: No erythema, No tenderness, No warmth Integumentary: No tenderness/swelling, No erythema, No warmth, No cyanosis Neurological: Normal speech, Normal strength at 5/5 x4 extr, Normal tone, Normal affect Laboratory Data at Discharge: WBC 14.00 K/uL (4.3-10.9) H D 06/28/21 04:40 Hgb 8.6 g/dL (12.0-15.0) L 06/28/21 04:40 Hct 27.1 % (36.0-45.0) L 06/28/21 04:40 Plt Count 327 K/uL (152-406) 06/28/21 04:40 PT 18.8 SECONDS (9.5-12.5) H 06/21/21 05:03 INR 1.63 06/21/21 05:03 APTT 23.6 SECONDS (24.3-36.9) L 06/21/21 05:03 Sodium 141 mmol/L (136-145) 06/28/21 04:40 Potassium 3.3 mmol/L (3.5-5.1) L 06/28/21 04:40 BUN 28 mg/dL (7-18) H 06/28/21 04:40 Creatinine 0.89 mg/dL (0.55-1.3) 06/28/21 04:40 Glucose 111 mg/dL (74-106) H 06/28/21 04:40 Phosphorus 2.6 mg/dL (2.5-4.9) 06/27/21 04:40 Magnesium 2.2 mg/dL (1.8-2.4) 06/28/21 04:40 Total Bilirubin 0.8 mg/dL (0.2-1.0) 06/28/21 04:40 AST 20 U/L (15-37) 06/28/21 04:40 ALT 21 U/L (12-78) 06/28/21 04:40 Alkaline Phosphatase 51 U/L (45-117) 06/28/21 04:40 Troponin I 0.09 ng/mL (0.0-0.045) H 06/17/21 12:10 Triglycerides 91 mg/dL (<150) 06/18/21 05:09 Cholesterol 112 mg/dL (<200) 06/18/21 05:09 HDL Cholesterol 44 mg/dL (40-60) 06/18/21 05:09 Cholesterol/HDL Ratio 2.55 06/18/21 05:09 Home Medications: Ascorbic Acid [Vitamin C*] 500 mg PO DAILY 09/21/20 Atorvastatin Calcium [Lipitor*] 20 mg PO BEDTIME 09/21/20 Levothyroxine Sodium 25 mcg PO DAILY 04/02/21 Potassium Chloride 2 tab PO BID 04/02/21 Cyanocobalamin (Vitamin B-12) [Vitamin B-12] 1,000 mcg PO DAILY #90 capsule 04/04/21 Clopidogrel Bisulfate [Plavix*] 75 mg PO DAILY 06/18/21 Furosemide [Lasix*] 2 tab PO BID 06/18/21 Metoprolol Tartrate [Lopressor*] 25 mg PO BID 6AM 6PM 06/18/21 Rivaroxaban [Xarelto] 20 mg PO DAILY 06/18/21 Physician Discharge Instructions: Patient to be transferred to long-term acute care facility to continue care. Diet: AHA Activity: Fall precautions Followup: Jarad Ruano MD [Primary Care Provider] - Time spent managing pt's care (in minutes): 55
[2021-06-28 14:32] VITALS: BP 106/67; TEMP 98.2
== END 2021-06-28 15:25 | DRG 207 ==
LOC: ER 02:49 → ERHOLD 07:46 → 3RD-ICU 06-25 00:50
PROVIDERS: ADMIT Family Medicine; ATTEND Family Medicine
PROC: 5A1955Z Respiratory Ventilation, Greater than 96 Consecutive Hours (ICD-10-PCS; principal; 2021-06-17)
PROC: 0BH17EZ Insertion of Endotracheal Airway into Trachea, Via Natural or Artificial Opening (ICD-10-PCS; 2021-06-17)
DX: J96.01 Acute respiratory failure with hypoxia (principal); I50.33 Acute on chronic diastolic (congestive) heart failure; N17.0 Acute kidney failure with tubular necrosis; J18.9 Pneumonia, unspecified organism; I13.0 Hypertensive heart and chronic kidney disease with heart failure and stage 1 through stage 4 chronic kidney disease, or unspecified chronic kidney disease; I48.19 Other persistent atrial fibrillation; J44.1 Chronic obstructive pulmonary disease with (acute) exacerbation; E87.0 Hyperosmolality and hypernatremia; J44.0 Chronic obstructive pulmonary disease with (acute) lower respiratory infection; E87.3 Alkalosis; J96.02 Acute respiratory failure with hypercapnia; N18.30 Chronic kidney disease, stage 3 unspecified; E03.9 Hypothyroidism, unspecified; D50.9 Iron deficiency anemia, unspecified; E87.6 Hypokalemia; K76.0 Fatty (change of) liver, not elsewhere classified; E78.5 Hyperlipidemia, unspecified; D63.8 Anemia in other chronic diseases classified elsewhere; I25.10 Atherosclerotic heart disease of native coronary artery without angina pectoris; K21.9 Gastro-esophageal reflux disease without esophagitis; R34 Anuria and oliguria; Z91.048 Other nonmedicinal substance allergy status; Z79.82 Long term (current) use of aspirin; Z79.02 Long term (current) use of antithrombotics/antiplatelets; Z23 Encounter for immunization; Z79.890 Hormone replacement therapy; Z79.899 Other long term (current) drug therapy; Z85.3 Personal history of malignant neoplasm of breast; Z90.49 Acquired absence of other specified parts of digestive tract; Z90.710 Acquired absence of both cervix and uterus; Z90.12 Acquired absence of left breast and nipple; Z79.52 Long term (current) use of systemic steroids; Z20.822 Contact with and (suspected) exposure to COVID-19; Z79.01 Long term (current) use of anticoagulants
CPT/HCPCS: 31500; 36415; 36430; 71045; 71250; 74018; 76705; 80048; 80053; 80061; 80069; 80074; 80076; 81001; 81003; 81015; 82550; 82553; 82570; 82607; 82728; 82805; 82947; 83540; 83735; 83880; 83935; 84100; 84132; 84145; 84156; 84300; 84439; 84443; 84466; 84484; 85014; 85018; 85025; 85610; 85730; 86850; 86900; 86901; 87040; 87070; 87086; 87088; 87205; 87389; 93005; 93306; 94002; 94003; 94660; 96372; 97110; 97161; 97530; 99285; C9113; J0282; J0330; J1160; J1170; J1650; J1940; J2250; J2405; J2704; J2916; J2920; J2930; J3010; J3475; J3480; J3486; J7030; J7050; J7060; J7605; P9016; P9047; U0003